=== PATIENT | female | born 1950 | race Caucasian/White ===

== ENCOUNTER → 2017-07-27 11:56 | Outpatient (CLI) | payer MEDICARE, MEDICAID, SELFPAY ==
--- NOTE | 2017-07-27 12:22 | XR_ITS ---
XR abdomen min 2V HISTORY: ITS.REASON: Constipation ORDERING PHYSICIAN: OMAR Tamez PATIENT AGE: 67 years COMPARISON: None FINDINGS: Nonobstructive bowel gas pattern. There is mild amount retained colonic feces throughout the right and transverse colon. No radiographic evidence of fecal and fraction. Surgical clips right upper quadrant. No obvious urinary calculi. Degenerative change lumbar spine. IMPRESSION: Mild fecal stasis
[2017-07-27 13:58] LABS: Basophils % 0.5 % (0.1-2.0); Eosinophils # 0.1 K/mm3 (0.0-0.4); Eosinophils % 1.7 % (0.1-12.0); Lymphocytes % 28.8 K/mm3 (10-50); Mean Corpuscular HGB Conc 33.4 g/dL (31.8-35.4); Mean Corpuscular Hemoglobin 27.7 pg (27.0-31.2); Mean Corpuscular Volume 82.9 fl (81-99); Mean Platelet Volume 7.3 fl (7.4-10.4); Monocytes # 0.4 K/mm3 (0.1-1.0); Neutrophils # 4.5 K/mm3 (1.8-7.8); Neutrophils % 64.1 % (37.0-80.0); Platelet Count 228 K/mm3 (142-424); Red Blood Count 5.07 M/mm3 (4.20-5.40)
[2017-07-27 14:24] LABS: Alanine Aminotransferase 36 U/L (12-78); Albumin Level 3.4 gm/dL (3.4-5.0); Albumin/Globulin Ratio 0.9 (1.1-1.8); Alkaline Phosphatase 104 U/L (46-116); Anion Gap 12.3 mEq/L (5-15); Aspartate Amino Transferase 37 U/L (15-37); Bilirubin,Total 0.3 mg/dL (0.2-1.0); Blood Urea Nitrogen 15 mg/dL (7-18); Calcium 9.4 mg/dL (8.5-10.1); Carbon Dioxide 30 mmol/L (21.0-32.0); Chloride 98 mmol/L (98-107); Chol/HDL Ratio 3.8 (1-3.5); Cholesterol 139 mg/dL (140-200); Creatinine,Serum 0.87 mg/dL (0.55-1.02); Estimated Glomerular Filt Rate > 60 ml/min (>60); GFR (African American) > 60 ML/MIN (>60); Globulin 3.8 gm/dl (1.3-3.2); Glucose 352 mg/dL (74-106); HDL Cholesterol 37 mg/dL (29-89); LDL Cholesterol 30 mg/dL (0-130); Potassium 4.3 mmoL/L (3.5-5.1); Sodium 136 mmol/L (136-145); T4 (Thyroxine) 9.8 ug/dl (4.7-13.3); Thyroid Stimulating Hormone 1.95 uIU/ml (0.358-3.740); Total Protein,Serum 7.2 gm/dL (6.4-8.2); Triglycerides 358 mg/dL (30-200); VLDL Cholesterol 72 mg/dL (0-40)
[2017-07-27 14:49] LABS: Hemoglobin A1C 9.6 % (0.0-7.0)
[2017-07-28 17:19] LABS: Microalbumin, Urine 15.9 ug/mL (Not Estab.); Vitamin B12 285 pg/mL (232-1245)
== END ==
PROVIDERS: PCP Physician Assistant; Visit Provider Physician Assistant
DX: E11.9 Type 2 diabetes mellitus without complications (principal); R53.83 Other fatigue; K59.00 Constipation, unspecified
CPT/HCPCS: 74019; 80053; 80061; 82043; 82607; 82652; 83036; 84436; 84443; 85025

== ENCOUNTER 2017-09-16 17:41 | Emergency (ER) | payer MEDICARE, MEDICAID, SELFPAY ==
[2017-09-16 17:42] VITALS: BP 140/70; PULSE 70; RESP 22; TEMP 37.4; O2SAT 92; BMI 43.2
[2017-09-16 17:54] VITALS: BMI 43.2
--- NOTE | 2017-09-16 17:56 | XR_ITS ---
XR chest portable COMPARISON: None HISTORY: ] Shortness of breath TECHNIQUE: Portable upright chest FINDINGS: The patient is massively obese and this is a somewhat poor inspiration. However lung torres are grossly clear of infiltrate. Cardiac size is normal and the vascularity is normal. Sternal wire sutures noted. IMPRESSION: Slightly poor inspiration, grossly negative chest
--- NOTE | 2017-09-16 18:20 | HMH.EDSOB ---
ED Disposition Clinical Impression: Bronchitis, Congestion of nasal sinus Disposition: Home, Self-Care Condition on Discharge: Good Additional Instructions: Zithromax, first dose given in ER so start your Rx tomorrow; very close follow up with primary care provider in one to two days, continue inhalers and CPAP as per usual Prescriptions: Azithromycin [Zithromax 250mg tab] 250 mg PO DIRECTED #4 tab Referrals: Hilary Bagley PA [Primary Care Provider] - - Critical Care Critical Care Time: No Attestation: On 09/16/17, the high probability of a clinically significant, sudden or life threatening deterioration of the following system(s) required my full and direct attention, intervention and personal management. The time I documented below is in addition to time spent performing reported procedures but includes the following listed in this critical care notation. Medical Decision Making Vital Signs: 09/16/17 17:42 09/16/17 18:28 09/16/17 18:29 Temperature 99.4 F Temperature Source Tympanic Pulse Rate 94 H 92 H Pulse Rate [Right Radial] 70 Respiratory Rate 22 Blood Pressure [Right Arm] 140/70 Blood Pressure Mean [Right Arm] 93 Blood Pressure Source [Right Arm] Automatic Cuff Blood Pressure Position [Right Arm] Sitting 02 Sat by Pulse Oximetry 92 L Oxygen Delivery Method Nasal Cannula Oxygen Flow Rate (LPM) 2 - Lab Data Lab results reviewed: Yes: I reviewed the patient's lab results. Lab Results 09/16/17 18:03: Influenza Type A Ag Negative, Influenza Type B Ag Negative 09/16/17 18:05: WBC 11.6 H, RBC 4.95, Hgb 13.8, Hct 39.7, MCV 80.3 L, MCH 28.0, MCHC 34.8, RDW 13.8, Plt Count 214, MPV 7.3 L, Neut % (Auto) 80.1 H, Lymph % (Auto) 13.4, [place] % (Auto) 5.3, Eos % (Auto) 0.9, Baso % (Auto) 0.2, Neut # (Auto) 9.3 H, Lymph # (Auto) 1.6, [place] # (Auto) 0.6, Eos # (Auto) 0.1, Baso # (Auto) 0.0 09/16/17 18:05: Sodium 133 L, Potassium 3.6, Chloride 96 L, Carbon Dioxide 32, Anion Gap 8.6, BUN 14, Creatinine 0.87, Estimated Creat Clear 48, Estimated GFR 65, Est GFR ( Amer) 78, Glucose 232 H, Calcium 9.3, Total Bilirubin 0.5, AST 13 L, ALT 33, Alkaline Phosphatase 101, Total Protein 7.9, Albumin 3.2 L, Globulin 4.7 H, Albumin/Globulin Ratio 0.7 L 09/16/17 18:05: Lactic Acid 2.2 H 09/16/17 18:05: B-Natriuretic Peptide 179 H Result diagrams: 09/16/17 18:05 09/16/17 18:05 Orders (Tests/Meds): ED MEDICATIONS Generic Name Dose Route Start Last Admin Trade Name Freq PRN Reason Stop Dose Admin Albuterol/Ipratropium 3 ml 09/16/17 18:15 09/16/17 18:27 Duoneb 3ml Neb IH 10/16/17 18:14 3 ml Q1H BRYCE Administration Discontinued Medications Generic Name Dose Route Start Last Admin Trade Name Freq PRN Reason Stop Dose Admin Acetaminophen 500 mg 09/16/17 19:03 Tylenol 500mg Tablet PO 09/16/17 19:04 ONCE ONE Azithromycin 500 mg 09/16/17 19:02 Zithromax 250mg Tablet PO 09/16/17 19:03 ONCE ONE Protocol ORDERS Category Date Time Status Chest XR -- portable [XR chest portable] Stat Exams 09/16/17 17:56 Taken Blood Culture Stat Micro 09/16/17 18:05 Received - Radiology Data #1 Image(s): Chest Image Reviewed: Yes I reviewed the patient's radiology image Preliminary Findings: Abnormal (atelectasis at bases, CM, no prior) Patient wishes to go home; is in no resp distress; clinically appears well; HDS, first dose of ABX prior to d/c - Sam Inquiry Pt receiving controlled substance: No Resp/SOB HPI - General Chief Complaint: Weakness Stated Complaint: chest congestion, fever, headache Time Seen by Provider: 09/16/17 18:10 Mode of Arrival: Wheelchair Source of Information: Patient Limitations: No Limitations Description of Symptoms (Recalled from ER Triage Doc. by RN): PT states she has some head congestion, cough for 2 days - History of Present Illness Pressure and congestion past 2 days with very l
[2017-09-16 18:21] LABS: Basophils % 0.2 % (0.1-2.0); Eosinophils # 0.1 K/mm3 (0.0-0.4); Eosinophils % 0.9 % (0.1-12.0); Hematocrit 39.7 % (37.0-47.0); Hemoglobin 13.8 g/dL (12.2-16.2); Lymphocytes # 1.6 K/mm3 (0.7-4.5); Lymphocytes % 13.4 K/mm3 (10-50); Mean Corpuscular HGB Conc 34.8 g/dL (31.8-35.4); Mean Corpuscular Volume 80.3 fl (81-99); Mean Platelet Volume 7.3 fl (7.4-10.4); Monocytes # 0.6 K/mm3 (0.1-1.0); Monocytes % 5.3 % (1.7-9.3); Neutrophils # 9.3 K/mm3 (1.8-7.8); Neutrophils % 80.1 % (37.0-80.0); Platelet Count 214 K/mm3 (142-424); Red Blood Count 4.95 M/mm3 (4.20-5.40); Red Cell Distribution Width 13.8 % (11.5-17.5); White Blood Count 11.6 K/mm3 (4.8-10.8)
--- NOTE | 2017-09-16 18:27 | ED_ITS ---
ED Disposition Clinical Impression: Bronchitis, Congestion of nasal sinus Disposition: Home, Self-Care Condition on Discharge: Good Additional Instructions: Zithromax, first dose given in ER so start your Rx tomorrow; very close follow up with primary care provider in one to two days, continue inhalers and CPAP as per usual Prescriptions: Azithromycin [Zithromax 250mg tab] 250 mg PO DIRECTED #4 tab Referrals: Hilary Bagley PA [Primary Care Provider] - - Critical Care Critical Care Time: No Attestation: On 09/16/17, the high probability of a clinically significant, sudden or life threatening deterioration of the following system(s) required my full and direct attention, intervention and personal management. The time I documented below is in addition to time spent performing reported procedures but includes the following listed in this critical care notation. Medical Decision Making Vital Signs: 09/16/17 17:42 09/16/17 18:28 09/16/17 18:29 Temperature 99.4 F Temperature Source Tympanic Pulse Rate 94 H 92 H Pulse Rate [Right Radial] 70 Respiratory Rate 22 Blood Pressure [Right Arm] 140/70 Blood Pressure Mean [Right Arm] 93 Blood Pressure Source [Right Arm] Automatic Cuff Blood Pressure Position [Right Arm] Sitting 02 Sat by Pulse Oximetry 92 L Oxygen Delivery Method Nasal Cannula Oxygen Flow Rate (LPM) 2 - Lab Data Lab results reviewed: Yes: I reviewed the patient's lab results. Lab Results 09/16/17 18:03: Influenza Type A Ag Negative, Influenza Type B Ag Negative 09/16/17 18:05: WBC 11.6 H, RBC 4.95, Hgb 13.8, Hct 39.7, MCV 80.3 L, MCH 28.0, MCHC 34.8, RDW 13.8, Plt Count 214, MPV 7.3 L, Neut % (Auto) 80.1 H, Lymph % ( Auto) 13.4, [place] % (Auto) 5.3, Eos % (Auto) 0.9, Baso % (Auto) 0.2, Neut # (Auto ) 9.3 H, Lymph # (Auto) 1.6, [place] # (Auto) 0.6, Eos # (Auto) 0.1, Baso # (Auto) 0.0 09/16/17 18:05: Sodium 133 L, Potassium 3.6, Chloride 96 L, Carbon Dioxide 32, Anion Gap 8.6, BUN 14, Creatinine 0.87, Estimated Creat Clear 48, Estimated GFR 65, Est GFR ( Amer) 78, Glucose 232 H, Calcium 9.3, Total Bilirubin 0.5, AST 13 L, ALT 33, Alkaline Phosphatase 101, Total Protein 7.9, Albumin 3.2 L, Globulin 4.7 H, Albumin/Globulin Ratio 0.7 L 09/16/17 18:05: Lactic Acid 2.2 H 09/16/17 18:05: B-Natriuretic Peptide 179 H Result diagrams: 09/16/17 18:05 09/16/17 18:05 Orders (Tests/Meds): ED MEDICATIONS Generic Name Dose Route Start Last Admin Trade Name Freq PRN Reason Stop Dose Admin Albuterol/Ipratropium 3 ml 09/16/17 18:15 09/16/17 18:27 Duoneb 3ml Neb IH 10/16/17 18:14 3 ml Q1H BRYCE Administration Discontinued Medications Generic Name Dose Route Start Last Admin Trade Name Freq PRN Reason Stop Dose Admin Acetaminophen 500 mg 09/16/17 19:03 Tylenol 500mg Tablet PO 09/16/17 19:04 ONCE ONE Azithromycin 500 mg 09/16/17 19:02 Zithromax 250mg Tablet PO 09/16/17 19:03 ONCE ONE Protocol ORDERS Category Date Time Status Chest XR -- portable [XR chest portable] Stat Exams 09/16/17 17:56 Taken Blood Culture Stat Micro 09/16/17 18:05 Received - Radiology Data #1 Image(s): Chest Image Reviewed: Yes I reviewed the patient's radiology image
[2017-09-16 18:28] VITALS: PULSE 94
[2017-09-16 18:29] VITALS: PULSE 92
[2017-09-16 18:34] LABS: Alanine Aminotransferase 33 U/L (12-78); Albumin Level 3.2 gm/dL (3.4-5.0); Albumin/Globulin Ratio 0.7 (1.1-1.8); Alkaline Phosphatase 101 U/L (46-116); Anion Gap 8.6 mEq/L (5-15); Aspartate Amino Transferase 13 U/L (15-37); Bilirubin,Total 0.5 mg/dL (0.2-1.0); Blood Urea Nitrogen 14 mg/dL (7-18); Calcium 9.3 mg/dL (8.5-10.1); Carbon Dioxide 32 mmol/L (21.0-32.0); Chloride 96 mmol/L (98-107); Creatinine Clearance Estimated 48 mL/min (0-300); Creatinine,Serum 0.87 mg/dL (0.55-1.02); Estimated Glomerular Filt Rate 65 ml/min (>60); GFR (African American) 78 ML/MIN (>60); Globulin 4.7 gm/dl (1.3-3.2); Glucose 232 mg/dL (74-106); Potassium 3.6 mmoL/L (3.5-5.1); Sodium 133 mmol/L (136-145); Total Protein,Serum 7.9 gm/dL (6.4-8.2)
[2017-09-16 18:39] LABS: Lactic Acid 2.2 mmol/L (0.4-2.0)
[2017-09-16 19:19] VITALS: BP 142/80; PULSE 75; RESP 16; TEMP 37; O2SAT 98
[2017-09-16 21:57] LABS: Reflex Lactic No Lactic Reflex
== END 2017-09-16 19:19 | disposition home or self-care (01) ==
PROVIDERS: Emergency Provider Emergency Medicine; PCP Physician Assistant
DX: J44.0 Chronic obstructive pulmonary disease with (acute) lower respiratory infection (principal); J20.9 Acute bronchitis, unspecified; Z87.891 Personal history of nicotine dependence; I25.10 Atherosclerotic heart disease of native coronary artery without angina pectoris; E11.65 Type 2 diabetes mellitus with hyperglycemia; Z79.84 Long term (current) use of oral hypoglycemic drugs; I10 Essential (primary) hypertension; E78.5 Hyperlipidemia, unspecified; K21.9 Gastro-esophageal reflux disease without esophagitis; M79.7 Fibromyalgia
CPT/HCPCS: 71045; 80053; 83605; 83880; 85025; 87040; 87077; 87275; 87276; 99281

== ENCOUNTER 2017-09-28 11:52 | Inpatient (IN) | payer MEDICARE, MEDICAID, SELFPAY ==
[2017-09-28] VITALS (9 sets, daily range): BP systolic 113–146; BP diastolic 62–89; PULSE 61–112; RESP 20–24; TEMP 36.6–37.1; O2SAT 91–96; BMI 41.5; BMI 41.3
--- NOTE | 2017-09-28 11:56 | XR_ITS ---
XR chest portable HISTORY: ITS.REASON: chest pain ORDERING PHYSICIAN: Ivana Uriostegui MD PATIENT AGE: 67 years COMPARISON: 09/16/2017 FINDINGS: Moderate cardiomegaly without failure. Prior median sternotomy.. Increased density is present in the left lower lobe with obliteration of left hemidiaphragm consistent with left lower lobe pneumonia. The right lung is clear.. There is fracture of the superior 2 most median sternotomy wires IMPRESSION: Left lower lobe pneumonia
--- NOTE | 2017-09-28 12:05 | HMH.EDCP ---
ED Disposition Clinical Impression: Pneumonia involving left lung, Diabetes mellitus Disposition: Admitted as Observation Condition on Discharge: Fair Referrals: Hilary Bagley PA [Primary Care Provider] - - Critical Care Critical Care Time: No Attestation: On , the high probability of a clinically significant, sudden or life threatening deterioration of the following system(s) required my full and direct attention, intervention and personal management. The time I documented below is in addition to time spent performing reported procedures but includes the following listed in this critical care notation. Medical Decision Making - Medical Records Medical records reviewed: Yes: I reviewed the patient's medical records. Vital Signs: 09/28/17 11:53 09/28/17 13:00 Temperature 98 F Temperature Source Oral Pulse Rate 90 Pulse Rate [Left Radial] 103 H Respiratory Rate 24 Blood Pressure [Left Arm] 146/89 Blood Pressure Mean [Left Arm] 108 Blood Pressure Source [Left Arm] Automatic Cuff Blood Pressure Position [Left Arm] Supine 02 Sat by Pulse Oximetry 91 L 96 Oxygen Delivery Method Room Air Nasal Cannula Oxygen Flow Rate (LPM) 2 - Lab Data Lab Results 09/28/17 12:10: WBC 17.3 H, RBC 4.89, Hgb 13.5, Hct 42.0, MCV 86.0, MCH 27.7, MCHC 32.2, RDW 14.1, Plt Count 245, MPV 7.3 L, Neut % (Auto) 83.0 H, Lymph % (Auto) 11.4, [place] % (Auto) 5.1, Eos % (Auto) 0.3, Baso % (Auto) 0.2, Neut # (Auto) 14.4 H, Lymph # (Auto) 2.0, [place] # (Auto) 0.9, Eos # (Auto) 0.1, Baso # (Auto) 0.0, Total Counted 100, Neutrophils % (Manual) 88 H, Lymphocytes % (Manual) 10, Monocytes % (Manual) 2, Platelet Estimate Normal, RBC Morphology Normal 09/28/17 12:10: Sodium 130 L, Potassium 4.2, Chloride 92 L, Carbon Dioxide 33 H, Anion Gap 9.2, BUN 18, Creatinine 1.04 H, Estimated Creat Clear 47, Estimated GFR 53 L, Est GFR ( Amer) 64, Glucose 411 H*, Calcium 9.3, Total Bilirubin 0.8, AST 13 L, ALT 26, Alkaline Phosphatase 108, Total Creatine Kinase 71, CK-MB (CK-2) 1.1, CK-MB (CK-2) Rel Index 1.5, Troponin I < 0.02, Total Protein 8.1, Albumin 3.1 L, Globulin 5.0 H, Albumin/Globulin Ratio 0.6 L Result diagrams: 09/28/17 12:10 09/28/17 12:10 Orders (Tests/Meds): ED MEDICATIONS Generic Name Dose Route Start Last Admin Trade Name Freq PRN Reason Stop Dose Admin Levofloxacin/Dextrose 500 mg in 100 mls @ 100 mls/hr 09/28/17 13:15 Levaquin 500mg/100ml Premix IV 10/12/17 13:14 Q24H BRYCE Protocol Discontinued Medications Generic Name Dose Route Start Last Admin Trade Name Freq PRN Reason Stop Dose Admin Albuterol/Ipratropium 3 ml 09/28/17 12:38 09/28/17 13:00 Duoneb 3ml Neb IH 09/28/17 12:39 3 ml ONCE ONE Administration Aspirin 324 mg 09/28/17 11:56 09/28/17 11:59 Aspirin 81mg Chewable Tablet PO 09/28/17 11:57 324 mg ONCE ONE Administration Methylprednisolone Sodium Succinate 125 mg 09/28/17 12:23 09/28/17 12:31 Solu-Medrol 125mg/2ml Vial IV 09/28/17 12:24 125 mg ONCE ONE Administration ORDERS Category Date Time Status Lactic Acid Stat Lab 09/28/17 12:56 Ordered Blood Culture Stat Micro 09/28/17 12:56 Ordered Sputum Culture & Gram Stain Stat Micro 09/28/17 12:56 Ordered ECG Request by /Arina Stat Y 09/28/17 11:56 Ordered - Radiology Data #1 Image(s): Chest Image Reviewed: Yes I reviewed the patient's radiology results Preliminary Findings: Abnormal (LLL pneumonia) - ECG Data Tracing #1 I reviewed this ECG and interpreted as documented below: Stach 103, no ectopy, incomplete RBBB, no ST changes, poor R w progression ECG initial impression date: 09/28/17 ECG initial impression time: 11:55 ECG normal with no acute: arrhythmias, ischemia, conduction abnormalities, chamber hypertrophy Normal Sinus Rhythm: Yes - Physician Consults Physician Consulted: Abhishek Sheehan Time: 13:04 Reason -: Admission Comment/Response:
--- NOTE | 2017-09-28 12:23 | ED_ITS ---
ED Disposition Clinical Impression: Pneumonia involving left lung, Diabetes mellitus Disposition: Admitted as Observation Condition on Discharge: Fair Referrals: Hilary Bagley PA [Primary Care Provider] - - Critical Care Critical Care Time: No Attestation: On , the high probability of a clinically significant, sudden or life threatening deterioration of the following system(s) required my full and direct attention, intervention and personal management. The time I documented below is in addition to time spent performing reported procedures but includes the following listed in this critical care notation. Medical Decision Making - Medical Records Medical records reviewed: Yes: I reviewed the patient's medical records. Vital Signs: 09/28/17 11:53 09/28/17 13:00 Temperature 98 F Temperature Source Oral Pulse Rate 90 Pulse Rate [Left Radial] 103 H Respiratory Rate 24 Blood Pressure [Left Arm] 146/89 Blood Pressure Mean [Left Arm] 108 Blood Pressure Source [Left Arm] Automatic Cuff Blood Pressure Position [Left Arm] Supine 02 Sat by Pulse Oximetry 91 L 96 Oxygen Delivery Method Room Air Nasal Cannula Oxygen Flow Rate (LPM) 2 - Lab Data Lab Results 09/28/17 12:10: WBC 17.3 H, RBC 4.89, Hgb 13.5, Hct 42.0, MCV 86.0, MCH 27.7, MCHC 32.2, RDW 14.1, Plt Count 245, MPV 7.3 L, Neut % (Auto) 83.0 H, Lymph % ( Auto) 11.4, [place] % (Auto) 5.1, Eos % (Auto) 0.3, Baso % (Auto) 0.2, Neut # (Auto ) 14.4 H, Lymph # (Auto) 2.0, [place] # (Auto) 0.9, Eos # (Auto) 0.1, Baso # (Auto ) 0.0, Total Counted 100, Neutrophils % (Manual) 88 H, Lymphocytes % (Manual) 10 , Monocytes % (Manual) 2, Platelet Estimate Normal, RBC Morphology Normal 09/28/17 12:10: Sodium 130 L, Potassium 4.2, Chloride 92 L, Carbon Dioxide 33 H , Anion Gap 9.2, BUN 18, Creatinine 1.04 H, Estimated Creat Clear 47, Estimated GFR 53 L, Est GFR ( Amer) 64, Glucose 411 H*, Calcium 9.3, Total Bilirubin 0.8, AST 13 L, ALT 26, Alkaline Phosphatase 108, Total Creatine Kinase 71, CK-MB (CK-2) 1.1, CK-MB (CK-2) Rel Index 1.5, Troponin I < 0.02, Total Protein 8.1, Albumin 3.1 L, Globulin 5.0 H, Albumin/Globulin Ratio 0.6 L Result diagrams: 09/28/17 12:10 09/28/17 12:10 Orders (Tests/Meds): ED MEDICATIONS Generic Name Dose Route Start Last Admin Trade Name Freq PRN Reason Stop Dose Admin Levofloxacin/Dextrose 500 mg in 100 mls @ 100 mls/hr 09/28/17 13:15 Levaquin 500mg/100ml Premix IV 10/12/17 13:14 Q24H BRYCE Protocol Discontinued Medications Generic Name Dose Route Start Last Admin Trade Name Freq PRN Reason Stop Dose Admin Albuterol/Ipratropium 3 ml 09/28/17 12:38 09/28/17 13:00 Duoneb 3ml Neb IH 09/28/17 12:39 3 ml ONCE ONE Administration Aspirin 324 mg 09/28/17 11:56 09/28/17 11:59 Aspirin 81mg Chewable Tablet PO 09/28/17 11:57 324 mg ONCE ONE Administration Methylprednisolone Sodium Succinate 125 mg 09/28/17 12:23 09/28/17 12:31 Solu-Medrol 125mg/2ml Vial IV 09/28/17 12:24 125 mg ONCE ONE Administration ORDERS Category Date Time Status Lactic Acid Stat Lab 09/28/17 12:56 Ordered Blood Culture Stat Micro 09/28/17 12:56 Ordered Sputum Culture & Gram Stain Stat Micro 09/28/17 12:56 Ordered ECG Request by /Nse Stat
[2017-09-28 12:29] LABS: Basophils % 0.2 % (0.1-2.0); Eosinophils # 0.1 K/mm3 (0.0-0.4); Eosinophils % 0.3 % (0.1-12.0); Hemoglobin 13.5 g/dL (12.2-16.2); Lymphocytes % 11.4 K/mm3 (10-50); Mean Corpuscular HGB Conc 32.2 g/dL (31.8-35.4); Mean Corpuscular Hemoglobin 27.7 pg (27.0-31.2); Mean Platelet Volume 7.3 fl (7.4-10.4); Monocytes # 0.9 K/mm3 (0.1-1.0); Monocytes % 5.1 % (1.7-9.3); Neutrophils # 14.4 K/mm3 (1.8-7.8); Platelet Count 245 K/mm3 (142-424); Red Blood Count 4.89 M/mm3 (4.20-5.40); Red Cell Distribution Width 14.1 % (11.5-17.5); White Blood Count 17.3 K/mm3 (4.8-10.8)
[2017-09-28 12:31] LABS: MANUAL DIFFERENTIAL MANUAL DIFFERENTIAL (MANUAL DIFF)
[2017-09-28 12:57] LABS: Lymphocytes % 10 % (10-50); Monocytes % 2 % (2-9); Neutrophils % 88 % (42-76); Platelet Estimate Normal; RBC Morphology Normal; Total Cells Counted 100
[2017-09-28 12:59] LABS: Alanine Aminotransferase 26 U/L (12-78); Albumin Level 3.1 gm/dL (3.4-5.0); Albumin/Globulin Ratio 0.6 (1.1-1.8); Alkaline Phosphatase 108 U/L (46-116); Anion Gap 9.2 mEq/L (5-15); Aspartate Amino Transferase 13 U/L (15-37); Bilirubin,Total 0.8 mg/dL (0.2-1.0); Blood Urea Nitrogen 18 mg/dL (7-18); CKMB Relative Index 1.5 U/L (0-4.0); Calcium 9.3 mg/dL (8.5-10.1); Carbon Dioxide 33 mmol/L (21.0-32.0); Chloride 92 mmol/L (98-107); Creatine Kinase 71 U/L (26-192); Creatine Kinase MB 1.1 mg/ml (0.0-3.6); Creatinine Clearance Estimated 47 mL/min (0-300); Creatinine,Serum 1.04 mg/dL (0.55-1.02); Estimated Glomerular Filt Rate 53 ml/min (>60); GFR (African American) 64 ML/MIN (>60); Potassium 4.2 mmoL/L (3.5-5.1); Sodium 130 mmol/L (136-145); Total Protein,Serum 8.1 gm/dL (6.4-8.2); Troponin I < 0.02 ng/ml (0.00-0.06)
[2017-09-28 13:07] LABS: Glucose 411 mg/dL (74-106)
--- NOTE | 2017-09-28 14:33 | PC.NURSE ---
CALLED REPORT TO JACQUELYN RAMSEY RN
--- NOTE | 2017-09-28 16:08 | PC.NURSE ---
AT 1600 HOURS PATIENT DECIDED SHE DID NOT WANT HER MOLLY HOSE. THEY WERE REMOVED AT THIS TIME. SUE RAMSEY, MSN, RN
[2017-09-28 16:18] LABS: Lactic Acid 2.1 mmol/L (0.4-2.0)
[2017-09-28 17:08] LABS: POC Glucose,Bedside 550 mg/dL (70-110)
[2017-09-28 17:09] LABS: Glucose,Random 571 mg/dL (70-110)
--- NOTE | 2017-09-28 17:34 | PC.NURSE ---
I NOTIFIED DR. PEMBERTON FANCY NEEDLEWORKER FOR DR. MONROY RELATED TO A FINGER STICK BLOOD SUGAR OF 55O. LAB NOTIFIED FOR A GLUCOSE VERIFICATION. ORDER ENTERED. DR. PEMBERTON CALLED BACK STATES TO GIVE THE PATIENT 20UNITS OF LISPRO NOW, CHANGE TO HIGH INTENSITY SLIDING SCALE, CONTINUE LEVIMIR 80U BID. ORDER FAXED TO PHARMACY AND VERIFIED WITH Alex SEBASTIAN RN CHARGE NURSE. PATIENT IS ASYMPTOMATIC AND STATES HER BLOOD SUGARS ARE THAT HIGH AT HOME. WILL CONTINUE TO MONITOR. SUE RAMSEY, MSN,RN
--- NOTE | 2017-09-28 17:44 | PC.NURSE ---
67 YEAR OLD WHITE FEMALE PRESENTED TO THE ER FROM THE DR'S OFFICE WITH CHEST PAIN SHE WAS EVALUATED AND ADMITTED TO THE FLOOR WITH LLL PNEUMONIA. SHE HAD FAILED OUTPATIENT TREATMENT PRIOR TO THIS ADMISSION. SHE HAS A COUGH THAT IS NONPRODUCTIVE AND SHE HAS BILATERAL WHEEZES AND DIMINISHED LUNG SOUNDS IN THE LLL. WE INITIATED THE MOLLY HOSE AND LATER THE PATIENT STATES SHE CANNOT WEAR THEM FOR THEY BOTHER HER LOWER LEGS. SHE STATES SHE WEARS A CPAP AT HOME FOR SLEEP BUT STATES SHE DOES NOT NEED IT AT THIS TIME DUE TO HAVING THE OXYGEN. SHE HAS A SALINE LOCK IN THE RAC. AT APPROXIMATELY 1630 HER BLOOD SUGAR WAS TAKEN AND THE RESULT OF [address] PEMBERTON WHOM WAS RESEARCH PSYCHOLOGIST FOR DR. MONROY. I RECEIVED NEW ORDERS AND THEY WERE FAXED TO THE PHARMACY. PATIENT HAS BEEN ASYMPTOMATIC AND STATES HER BLOOD SUGARS RUN IN THE 500'S AT HOME. WILL CONTINUE TO MONITOR. SUE RAMSEY, MSN, RN
[2017-09-28 20:01] LABS: Reflex Lactic Add Lactic Reflex
[2017-09-28 20:21] LABS: Lactic Acid Follow Up (RFLX 1) 2.2 (0.4-2.0)
--- NOTE | 2017-09-28 20:46 | PC.NURSE ---
PT fsbs registering high and not able to read. Stat glucose lab draw ordered. electrical service technician in room getting blood.
[2017-09-28 21:32] LABS: Glucose,Random 687 mg/dL (70-110)
[2017-09-28 22:24] LABS: Reflex Lactic (2 hrs) Add Lactic Reflex
[2017-09-28 22:54] LABS: Lactic Acid Follow up (RFLX 2) 2.2 (0.4-2.0)
[2017-09-29] VITALS (9 sets, daily range): BP systolic 104–130; BP diastolic 55–71; PULSE 47–69; RESP 16–20; TEMP 36.4–37.1; O2SAT 92–98; BMI 41.3
--- NOTE | 2017-09-29 04:53 | PC.NURSE ---
NO ACUTE CHANGES NOTED. PT HAS RESTED WELL THIS SHIFT.SHE REMAINS ON 2L NC. LUNGS NOTED TO HAVE SCATTERED WHEEZING AND DIMINISHED T/O. WAS NOTIFIED EARLY IN SHIFT DUE TO BLOOD GLUCOSE OF 687. 40 UNITS OF HUMALOG ADMIN ALONG WITH 80 UNITS OF LEVEMIR. MEDICATIONS ADMIN PER SEP. WILL CONTINUE TO MONITOR.
[2017-09-29 06:43] LABS: Basophils % 0.1 % (0.1-2.0); Hematocrit 40.5 % (37.0-47.0); Hemoglobin 12.9 g/dL (12.2-16.2); Lymphocytes # 1.5 K/mm3 (0.7-4.5); Lymphocytes % 9.9 K/mm3 (10-50); Mean Corpuscular HGB Conc 31.9 g/dL (31.8-35.4); Mean Corpuscular Hemoglobin 27.5 pg (27.0-31.2); Mean Corpuscular Volume 86.1 fl (81-99); Mean Platelet Volume 7.5 fl (7.4-10.4); Monocytes # 0.5 K/mm3 (0.1-1.0); Monocytes % 3.6 % (1.7-9.3); Neutrophils # 12.9 K/mm3 (1.8-7.8); Neutrophils % 86.3 % (37.0-80.0); Platelet Count 249 K/mm3 (142-424); Red Blood Count 4.71 M/mm3 (4.20-5.40); Red Cell Distribution Width 13.9 % (11.5-17.5); White Blood Count 14.9 K/mm3 (4.8-10.8)
[2017-09-29 06:59] LABS: POC Glucose,Bedside 502 mg/dL (70-110)
--- NOTE | 2017-09-29 06:59 | PC.NURSE ---
PT FSBS WAS 502 THIS AM. AWAITING STAT BLOOD GLUCOSE. MD NOTIFIED. 20 UNITS OF HUMALOG ORDERED IN ADDITION TO 20 UNITS SCHEDULED. TOTAL OF 40 UNITS ADMINISTERED THIS AM.
[2017-09-29 07:02] LABS: Anion Gap 9.9 mEq/L (5-15); Blood Urea Nitrogen 33 mg/dL (7-18); Carbon Dioxide 31 mmol/L (21.0-32.0); Chloride 90 mmol/L (98-107); Creatinine Clearance Estimated 32 mL/min (0-300); Creatinine,Serum 1.51 mg/dL (0.55-1.02); Estimated Glomerular Filt Rate 34 ml/min (>60); GFR (African American) 41 ML/MIN (>60); MANUAL DIFFERENTIAL MANUAL DIFFERENTIAL (MANUAL DIFF); Potassium 3.9 mmoL/L (3.5-5.1); Sodium 127 mmol/L (136-145)
[2017-09-29 07:04] LABS: Glucose 512 mg/dL (74-106)
[2017-09-29 07:33] LABS: POC Glucose,Bedside > 600 mg/dL (70-110)
[2017-09-29 07:33] LABS: POC Glucose,Bedside > 600 mg/dL (70-110)
[2017-09-29 07:40] LABS: Acetone, Serum (Rapid) None Detected (None Detect)
--- NOTE | 2017-09-29 10:00 | HMH.HP ---
*Admission Date: 09/28/17 *Chief complaint: sob *History of present illness: 67 yr old female patient seen in office yesterday with c/o of sob, chest pain. Pt was on zithromax as a oupt, while examining pt o2 sat 85% and pt reports pain midsternal and radiating to back. Pt was sent to ed for eval. Pt admitted for pneumonia and cardiac work up. [facility] History I have reviewed the patient's past medical history: Yes Medical History: Reports:: Asthma, Chronic Obstructive Pulmonary Disease (COPD), Coronary Artery Disease, Diabetes Mellitus Type 2, Gastroesophageal Reflux Disease(GERD), Hyperlipidemia, Hypertension, Myocardial Infarction Denies:: Cancer, Diabetes Mellitus Type 1, MRSA Other Medical History: Reports: Fibromyalgia Laterality Cases: Right: Lumpectomy Other Surgeries: Yes: Appendectomy, Hysterectomy-Total, Tubal Ligation Amputation: No Fractures: No - *Social History Educational Level: Completed Grade School Smoking Status: Never smoker Alcohol Intake: never Substance Use Type: denies use Occupational Status: retired, disabled Housing: house Household Members: family - Psychiatric History Expresses thoughts of harming self/others: None Suicide Plan Description: No Plan *Family Hx:: Cancer Review of Systems - Review of Systems Review of systems:: pertinent systems reviewed and negative unless documented below - Constitutional Denies body ache(s), Denies headache(s) - Eyes Denies change in vision - ENT Denies bleeding gums - *Cardiovascular Reports chest pain at rest, Reports chest pain with activity, Reports shortness of breath - *Respiratory Reports chest congestion, Reports shortness of breath, Reports shortness of breath with activity, Reports excessive phlegm production, Reports pain on inspiration - *Gastrointestinal Denies difficulty swallowing - *Genitourinary Denies abnormal vaginal bleeding - *Musculoskeletal Denies decreased muscle mass - Integumentary/Breasts Denies change in hair - *Neurologic Reports radiating pain - Psychiatric Denies mood swings - Endocrine Denies increased hunger - Hematologic/Lymphatic Denies enlarged lymph nodes - Allergic/Immunologic Denies wheezing Meds Home Medications Medication Instructions Recorded Confirmed Type amitriptyline 10 mg tablet 10 mg PO QHS 07/21/17 09/28/17 History hydrocodone 5 mg-acetaminophen 325 1 tab PO BID tab 07/21/17 09/28/17 History mg tablet Bisoprolol Fumarate [Zebeta 5mg 5 mg PO QDAY 09/28/17 09/28/17 History tablet] Budesonide/Formoterol Fumarate 2 puff INHALATION Q12H 09/28/17 09/28/17 History [Symbicort 160-4.5 Mcg Inhaler] Buspirone HCl [Buspar 5mg tablet] 5 mg PO ONCE 09/28/17 09/28/17 History Citalopram Hydrobromide [Celexa] 20 mg PO QDAY 09/28/17 09/28/17 History Clopidogrel Bisulfate [Plavix 75mg 75 mg PO ONCE 09/28/17 09/28/17 History Tab] Ergocalciferol (Vitamin D2) 50,000 unit PO QWEEK 09/28/17 09/28/17 History [Vitamin D2] Furosemide [Furosemide 20mg Tab] 20 mg PO QDAY 09/28/17 09/28/17 History Gabapentin [Gabapentin 800mg Tab] 800 mg PO QID 09/28/17 09/28/17 History Insulin Detemir [Levemir 80 unit SUB-Q BID 09/28/17 09/28/17 History 100units/mL 3mL flexpen] Levothyroxine Sodium [Synthroid 25 mcg PO QDAY 09/28/17 09/28/17 History 25mcg (0.025mg) tablet] Losartan/Hydrochlorothiazide 1 tab PO QDAY 09/28/17 09/28/17 History [Hyzaar 100-12.5 Tablet] Metoclopramide HCl [Reglan 5mg 5 mg PO BID 09/28/17 09/28/17 History Tablet] Omeprazole [Omeprazole 20mg 20 mg PO QDAY 09/28/17 09/28/17 History Capsule] Potassium Chloride [K-Tab ER 10 10 meq PO QDAY 09/28/17 09/28/17 History mEq] Rosuvastatin Calcium 20 mg PO QDAY 09/28/17 09/28/17 History cloNIDine HCl [Catapres] 0.2 mg PO QDAY 09/28/17 09/28/17 History insulin aspar prt-insulin aspart 40 unit SUB-Q TID 09/28/17 09/28/17 History 100 unit/mL (70-30) subcutaneous soln raNITIdine HCl [Ranitidine H
--- NOTE | 2017-09-29 10:03 | P.HP_ITS ---
*Admission Date: 09/28/17 *Chief complaint: sob *History of present illness: 67 yr old female patient seen in office yesterday with c/o of sob, chest pain. Pt was on zithromax as a oupt, while examining pt o2 sat 85% and pt reports pain midsternal and radiating to back. Pt was sent to ed for eval. Pt admitted for pneumonia and cardiac work up. [facility] History I have reviewed the patient's past medical history: Yes Medical History: Reports:: Asthma, Chronic Obstructive Pulmonary Disease (COPD) , Coronary Artery Disease, Diabetes Mellitus Type 2, Gastroesophageal Reflux Disease(GERD), Hyperlipidemia, Hypertension, Myocardial Infarction Denies:: Cancer, Diabetes Mellitus Type 1, MRSA Other Medical History: Reports: Fibromyalgia Laterality Cases: Right: Lumpectomy Other Surgeries: Yes: Appendectomy, Hysterectomy-Total, Tubal Ligation Amputation: No Fractures: No - *Social History Educational Level: Completed Grade School Smoking Status: Never smoker Alcohol Intake: never Substance Use Type: denies use Occupational Status: retired, disabled Housing: house Household Members: family - Psychiatric History Expresses thoughts of harming self/others: None Suicide Plan Description: No Plan *Family Hx:: Cancer Review of Systems - Review of Systems Review of systems:: pertinent systems reviewed and negative unless documented below - Constitutional Denies body ache(s), Denies headache(s) - Eyes Denies change in vision - ENT Denies bleeding gums - *Cardiovascular Reports chest pain at rest, Reports chest pain with activity, Reports shortness of breath - *Respiratory Reports chest congestion, Reports shortness of breath, Reports shortness of breath with activity, Reports excessive phlegm production, Reports pain on inspiration - *Gastrointestinal Denies difficulty swallowing - *Genitourinary Denies abnormal vaginal bleeding - *Musculoskeletal Denies decreased muscle mass - Integumentary/Breasts Denies change in hair - *Neurologic Reports radiating pain - Psychiatric Denies mood swings - Endocrine Denies increased hunger - Hematologic/Lymphatic Denies enlarged lymph nodes - Allergic/Immunologic Denies wheezing Meds Home Medications Medication Instructions Recorded Confirmed Type amitriptyline 10 mg tablet 10 mg PO QHS 07/21/17 09/28/17 History hydrocodone 5 mg-acetaminophen 325 1 tab PO BID tab 07/21/17 09/28/17 History mg tablet Bisoprolol Fumarate [Zebeta 5mg 5 mg PO QDAY 09/28/17 09/28/17 History tablet] Budesonide/Formoterol Fumarate 2 puff INHALATION Q12H 09/28/17 09/28/17 History [Symbicort 160-4.5 Mcg Inhaler] Buspirone HCl [Buspar 5mg tablet] 5 mg PO ONCE 09/28/17 09/28/17 History Citalopram Hydrobromide [Celexa] 20 mg PO QDAY 09/28/17 09/28/17 History Clopidogrel Bisulfate [Plavix 75mg 75 mg PO ONCE 09/28/17 09/28/17 History Tab] Ergocalciferol (Vitamin D2) 50,000 unit PO QWEEK 09/28/17 09/28/17 History [Vitamin D2] Furosemide [Furosemide 20mg Tab] 20 mg PO QDAY 09/28/17 09/28/17 History Gabapentin [Gabapentin 800mg Tab] 800 mg PO QID 09/28/17 09/28/17 History Insulin Detemir [Levemir 80 unit SUB-Q BID 09/28/17 09/28/17 History 100units/mL 3mL flexpen] Levothyroxine Sodium [Synthroid 25 mcg PO QDAY 09/28/17 09/28/17 History 25mcg (0.025mg) tablet] Losartan/Hydrochlorothiazide 1 tab PO QDAY 09/28/17 0
[2017-09-29 10:24] LABS: Adenovirus,PCR Not Detected (NotDetected); Bordetella Pertussis Not Detected (NotDetected); Chlamydophila Pneumoniae, PCR Not Detected (NotDetected); Coronavirus 229E Not Detected (NotDetected); Coronavirus NL63 Not Detected (NotDetected); Coronavirus OC43 Not Detected (NotDetected); Coronovirus HKU1,PCR Not Detected (NotDetected); Human Metapneumovirus Not Detected (NotDetected); Influenza A, PCR Not Detected (NotDetected); Influenza AH1, 2009 Not Detected (NotDetected); Influenza AH1, PCR Not Detected (NotDetected); Influenza AH3,PCR Not Detected (NotDetected); Influenza B, PCR Not Detected (NotDetected); Mycoplasma Pneumoniae, PCR Not Detected (NotDected); Parainfluenza 1, PCR Not Detected (NotDetected); Parainfluenza 2, PCR Not Detected (NotDetected); Parainfluenza 3, PCR Not Detected (NotDetected); Parainfluenza 4, PCR Not Detected (NotDetected); Respiratory Syncytial Virus Not Detected (NotDetected); Rhinovirus/Enterovirus Not Detected (NotDetected)
[2017-09-29 11:15] LABS: Lymphocytes % 10 % (10-50); Monocytes % 4 % (2-9); Neutrophils % 86 % (42-76); Platelet Estimate Normal; RBC Morphology Normal; Total Cells Counted 100
--- NOTE | 2017-09-29 11:18 | SW/DCPLANNER ---
Received order for home O2.....patient information was faxed to [facility] and I have spoke with Melissa Michaels at [facility] to confirm fax was received and they will deliver home O2 to patient this afternoon. Patient is expected to discharged home over the weekend. However if patient discharges home on Monday rather than Monday patient will need qualifying O2 sat recorded in computer.
[2017-09-29 11:39] LABS: POC Glucose,Bedside 506 mg/dL (70-110)
--- NOTE | 2017-09-29 11:48 | HMH.PHAVTE ---
[facility] Pharmacy VTE Monitoring - Patient Demographics Admission date: 09/28/17 Report Date: 09/29/17 Time: 11:48 Allergies/Adverse Reactions: Patient Allergies Iodinated Contrast Media - Oral and [Iodinated Contrast Media - IV Dye] Allergy (Severe, Verified 09/28/17 12:01) S-DIFF. BREATHING celecoxib [From CELEBREX] Allergy (Unknown, Verified 09/28/17 12:01) SWELLING ibuprofen [IBUPROFEN] Allergy (Unknown, Verified 09/28/17 12:01) S-BLISTERING WELTS meloxicam [MELOXICAM] Allergy (Unknown, Verified 09/28/17 12:01) S-BLISTERING WELTS Penicillins [PENICILLINS] Allergy (Unknown, Verified 09/28/17 12:01) I-HIVES rofecoxib [From VIOXX] Allergy (Unknown, Verified 09/28/17 12:01) I-HIVES Height: 1.65 m Weight: 112.548 kg Patient Problems: Current Active Problems Pneumonia involving left lung (Acute) Diabetes mellitus (Chronic) - VTE Risk Labs: VTE Related Lab Results Hgb 12.9 g/dL (12.2-16.2) 09/29/17 06:15 Hct 40.5 % (37.0-47.0) 09/29/17 06:15 Plt Count 249 K/mm3 (142-424) 09/29/17 06:15 BUN 33 mg/dL (7-18) H D 09/29/17 06:15 Creatinine 1.51 mg/dL (0.55-1.02) H D 09/29/17 06:15 Estimated Creat Clear 32 mL/min (0-300) 09/29/17 06:15 Was VTE Risk Assessment Performed: Yes VTE Score: 6 VTE Risk Level: Moderate Risk - Prophylaxis VTE Prophylaxis Ordered?: Yes Types of VTE Prophylaxis: TEDS Knee High Location of Applied Device: Bilateral Lower Extremeties
[2017-09-29 13:53] LABS: Glucose,Random 565 mg/dL (70-110)
[2017-09-29 17:57] LABS: Glucose,Random 571 mg/dL (70-110)
[2017-09-29 21:22] LABS: POC Glucose,Bedside 552 mg/dL (70-110)
[2017-09-29 21:23] LABS: Glucose,Random 548 mg/dL (70-110)
[2017-09-30] VITALS (10 sets, daily range): BP systolic 92–139; BP diastolic 48–75; PULSE 58–93; RESP 20–24; TEMP 36.3–37; O2SAT 88–98
--- NOTE | 2017-09-30 04:32 | PC.NURSE ---
PT HAS SLEPT. CONTINUES ON 2L PER NC. NO COMPLAINTS. FSBS REMAINS ELEVATED.
[2017-09-30 06:29] LABS: POC Glucose,Bedside 425 mg/dL (70-110)
[2017-09-30 06:36] LABS: Hematocrit 41.6 % (37.0-47.0); Hemoglobin 13.6 g/dL (12.2-16.2); Lymphocytes # 1.2 K/mm3 (0.7-4.5); Lymphocytes % 8.8 K/mm3 (10-50); Mean Corpuscular HGB Conc 32.7 g/dL (31.8-35.4); Mean Corpuscular Hemoglobin 27.6 pg (27.0-31.2); Mean Corpuscular Volume 84.5 fl (81-99); Mean Platelet Volume 7.7 fl (7.4-10.4); Monocytes # 0.4 K/mm3 (0.1-1.0); Neutrophils # 12.1 K/mm3 (1.8-7.8); Neutrophils % 88.2 % (37.0-80.0); Platelet Count 308 K/mm3 (142-424); Red Blood Count 4.92 M/mm3 (4.20-5.40); Red Cell Distribution Width 13.9 % (11.5-17.5); White Blood Count 13.8 K/mm3 (4.8-10.8)
[2017-09-30 06:41] LABS: MANUAL DIFFERENTIAL MANUAL DIFFERENTIAL (MANUAL DIFF)
[2017-09-30 06:57] LABS: Alanine Aminotransferase 24 U/L (12-78); Albumin Level 2.9 gm/dL (3.4-5.0); Albumin/Globulin Ratio 0.6 (1.1-1.8); Alkaline Phosphatase 94 U/L (46-116); Anion Gap 10.6 mEq/L (5-15); Aspartate Amino Transferase 12 U/L (15-37); Bilirubin,Total 0.1 mg/dL (0.2-1.0); Blood Urea Nitrogen 47 mg/dL (7-18); Calcium 9.8 mg/dL (8.5-10.1); Carbon Dioxide 31 mmol/L (21.0-32.0); Chloride 93 mmol/L (98-107); Creatinine Clearance Estimated 33 mL/min (0-300); Creatinine,Serum 1.43 mg/dL (0.55-1.02); Estimated Glomerular Filt Rate 36 ml/min (>60); GFR (African American) 44 ML/MIN (>60); Globulin 5.2 gm/dl (1.3-3.2); Potassium 4.6 mmoL/L (3.5-5.1); Sodium 130 mmol/L (136-145); Total Protein,Serum 8.1 gm/dL (6.4-8.2)
[2017-09-30 07:00] LABS: Glucose 427 mg/dL (74-106)
--- NOTE | 2017-09-30 07:01 | PC.NURSE ---
NOTIFIED DR MONROY OF ELEVATED FSBS WITH CRITICAL BLOOD GLUCOSE LEVEL. NO NEW ORDERS GIVEN.
--- NOTE | 2017-09-30 07:51 | HMH.ACPN2 ---
Internal Medicine - PN: Subj *Date: 09/30/17 *Time: 07:51 Interval history: reports feeling better but had elevated glu Exam Vital signs and Labs for Last 24 Hours: Temp Pulse Resp BP Pulse Ox 98.2 F 93 H 20 139/75 98 09/30/17 07:31 09/30/17 07:31 09/30/17 07:31 09/30/17 07:31 09/30/17 07:31 Laboratory Results - last 24 hr 09/29/17 06:15: Total Counted 100, Neutrophils % (Manual) 86 H, Lymphocytes % (Manual) 10, Monocytes % (Manual) 4, Platelet Estimate Normal, RBC Morphology Normal 09/29/17 10:07: Chlamy pneumoniae PCR Not detected, Adenovirus (PCR) Not detected, B.parapertussis DNA PCR Not detected, Coronavirus OC43 (PCR) Not detected, Coronavirus HKU1 (PCR) Not detected, Coronavirus 229E (PCR) Not detected, Coronavirus NL63 (PCR) Not detected, Human Metapneumovir PCR Not detected, Influenza A (H1) PCR Not detected, Influ A (H1N1/09) PCR Not detected, Influenza A (H3) PCR Not detected, Influenza Type A (PCR) Not detected, Influenza Type B (PCR) Not detected, M. pneumoniae (PCR) Not detected, Parainfluenza 1 (PCR) Not detected, Parainfluenza 2 (PCR) Not detected, Parainfluenza 3 (PCR) Not detected, Parainfluenza 4 (PCR) Not detected, RSV (PCR) Not detected, Entero/Rhino (PCR) Not detected 09/29/17 11:25: POC Glucose 506 09/29/17 13:32: Random Glucose 565 H* 09/29/17 17:20: Random Glucose 571 H* 09/29/17 20:44: POC Glucose 552 09/29/17 20:55: Random Glucose 548 H* 09/30/17 06:04: POC Glucose 425 09/30/17 06:10: WBC 13.8 H, RBC 4.92, Hgb 13.6, Hct 41.6, MCV 84.5, MCH 27.6, MCHC 32.7, RDW 13.9, Plt Count 308, MPV 7.7, Neut % (Auto) 88.2 H, Lymph % (Auto) 8.8 L, [place] % (Auto) 3.0, Eos % (Auto) 0.0 L, Baso % (Auto) 0.0 L, Neut # (Auto) 12.1 H, Lymph # (Auto) 1.2, [place] # (Auto) 0.4, Eos # (Auto) 0.0, Baso # (Auto) 0.0 09/30/17 06:10: Sodium 130 L, Potassium 4.6, Chloride 93 L, Carbon Dioxide 31, Anion Gap 10.6, BUN 47 H D, Creatinine 1.43 H, Estimated Creat Clear 33, Estimated GFR 36 L, Est GFR ( Amer) 44 L, Glucose 427 H*, Calcium 9.8, Total Bilirubin 0.1 L, AST 12 L, ALT 24, Alkaline Phosphatase 94, Total Protein 8.1, Albumin 2.9 L, Globulin 5.2 H, Albumin/Globulin Ratio 0.6 L I & O for Last 24 hours: Intake & Output 09/27/17 09/28/17 09/29/17 09/30/17 11:59 11:59 11:59 11:59 Intake Total 720 / 720 1540 / 1540 Balance 720 / 720 1540 / 1540 Weight 248 lb 2 oz 248 lb 2.014 oz Microbiology Reports for the Last 24 Hours: Microbiology 09/28/17 14:40 Sputum - Expectorated Sputum Gram Stain - Final 09/28/17 14:40 Sputum - Expectorated Sputum Sputum Culture - Preliminary - Constitutional no acute distress, obese - *Routine HEENT Exam Head: Present: normocephalic Eye: Present: EOMI, PERRL. Absent: conjunctival icterus ENT: Present: mucous membranes dry - *Routine Neck Exam Absent: JVD - *Routine Respiratory Exam Present: distant breath sounds - *Routine Cardiovascular Exam Present: RRR, murmur - *Routine Abdominal Exam Present: soft - *Routine Extremities Exam Present: edema. Absent: calf tenderness - *Routine Skin Exam Present: intact - *Routine Neurological Exam Present: alert, oriented X3, CN II-XII intact - Routine Psychiatric Exam Present: normal affect Assessment and Plan (1) Obesity Current visit: Yes Status: Acute Qualifiers: Obesity type: unspecified obesity type Category: Medical Code(s): E66.9 - Obesity, unspecified (2) Renal insufficiency Current visit: Yes Status: Acute Category: Medical Code(s): N28.9 - Disorder of kidney and ureter, unspecified
--- NOTE | 2017-09-30 07:55 | P.PN_ITS ---
Internal Medicine - PN: Subj *Date: 09/30/17 *Time: 07:51 Interval history: reports feeling better but had elevated glu Exam Vital signs and Labs for Last 24 Hours: Temp Pulse Resp BP Pulse Ox 98.2 F 93 H 20 139/75 98 09/30/17 07:31 09/30/17 07:31 09/30/17 07:31 09/30/17 07:31 09/30/17 07:31 Laboratory Results - last 24 hr 09/29/17 06:15: Total Counted 100, Neutrophils % (Manual) 86 H, Lymphocytes % ( Manual) 10, Monocytes % (Manual) 4, Platelet Estimate Normal, RBC Morphology Normal 09/29/17 10:07: Chlamy pneumoniae PCR Not detected, Adenovirus (PCR) Not detected, B.parapertussis DNA PCR Not detected, Coronavirus OC43 (PCR) Not detected, Coronavirus HKU1 (PCR) Not detected, Coronavirus 229E (PCR) Not detected, Coronavirus NL63 (PCR) Not detected, Human Metapneumovir PCR Not detected, Influenza A (H1) PCR Not detected, Influ A (H1N1/09) PCR Not detected , Influenza A (H3) PCR Not detected, Influenza Type A (PCR) Not detected, Influenza Type B (PCR) Not detected, M. pneumoniae (PCR) Not detected, Parainfluenza 1 (PCR) Not detected, Parainfluenza 2 (PCR) Not detected, Parainfluenza 3 (PCR) Not detected, Parainfluenza 4 (PCR) Not detected, RSV (PCR ) Not detected, Entero/Rhino (PCR) Not detected 09/29/17 11:25: POC Glucose 506 09/29/17 13:32: Random Glucose 565 H* 09/29/17 17:20: Random Glucose 571 H* 09/29/17 20:44: POC Glucose 552 09/29/17 20:55: Random Glucose 548 H* 09/30/17 06:04: POC Glucose 425 09/30/17 06:10: WBC 13.8 H, RBC 4.92, Hgb 13.6, Hct 41.6, MCV 84.5, MCH 27.6, MCHC 32.7, RDW 13.9, Plt Count 308, MPV 7.7, Neut % (Auto) 88.2 H, Lymph % (Auto ) 8.8 L, [place] % (Auto) 3.0, Eos % (Auto) 0.0 L, Baso % (Auto) 0.0 L, Neut # ( Auto) 12.1 H, Lymph # (Auto) 1.2, [place] # (Auto) 0.4, Eos # (Auto) 0.0, Baso # ( Auto) 0.0 09/30/17 06:10: Sodium 130 L, Potassium 4.6, Chloride 93 L, Carbon Dioxide 31, Anion Gap 10.6, BUN 47 H D, Creatinine 1.43 H, Estimated Creat Clear 33, Estimated GFR 36 L, Est GFR ( Amer) 44 L, Glucose 427 H*, Calcium 9.8, Total Bilirubin 0.1 L, AST 12 L, ALT 24, Alkaline Phosphatase 94, Total Protein 8.1, Albumin 2.9 L, Globulin 5.2 H, Albumin/Globulin Ratio 0.6 L I & O for Last 24 hours: Intake & Output 09/27/17 09/28/17 09/29/17 09/30/17 11:59 11:59 11:59 11:59 Intake Total 720 / 720 1540 / 1540 Balance 720 / 720 1540 / 1540 Weight 248 lb 2 oz 248 lb 2.014 oz Microbiology Reports for the Last 24 Hours: Microbiology 09/28/17 14:40 Sputum - Expectorated Sputum Gram Stain - Final 09/28/17 14:40 Sputum - Expectorated Sputum Sputum Culture - Preliminary - Constitutional no acute distress, obese - *Routine HEENT Exam Head: Present: normocephalic Eye: Present: EOMI, PERRL. Absent: conjunctival icterus ENT: Present: mucous membranes dry - *Routine Neck Exam Absent: JVD - *Routine Respiratory Exam Present: distant breath sounds - *Routine Cardiovascular Exam Present: RRR, murmur - *Routine Abdominal Exam Present: soft - *Routine Extremities Exam Present: edema. Absent: calf tenderness - *Routine Skin Exam Present: intact - *Routine Neurological Exam Present: alert, oriented X3, CN II-XII intact - Routine Psychiatric Exam Present: normal affect Assessment and Plan (1) Obesity Current visit: Yes Status: Acute Qualifiers: Obesity type: unspecified obesity type Category: Medical Code(s): E66.9 - Obesity, unspecified (2) Renal insufficiency
[2017-09-30 08:00] LABS: Lymphocytes % 10 % (10-50); Monocytes % 1 % (2-9); Neutrophils % 89 % (42-76); Platelet Estimate Normal; RBC Morphology Normal; Total Cells Counted 100
--- NOTE | 2017-09-30 11:56 | PC.NURSE ---
Paged Dr. Sheehan for glucose reading of 568, awaiting call back
[2017-09-30 12:16] LABS: POC Glucose,Bedside 568 mg/dL (70-110)
[2017-09-30 12:25] LABS: Glucose,Random 585 mg/dL (70-110)
--- NOTE | 2017-09-30 12:28 | PC.NURSE ---
Spoke with MD Sheehan, Critical glucose of 585 per lab draw. stated to give the added insulin for 12:30 dose of humalog 75/25 and given sliding scale of 20 units. Will continue to monitor
[2017-09-30 13:59] LABS: POC Glucose,Bedside 532 mg/dL (70-110)
--- NOTE | 2017-09-30 15:08 | PC.NURSE ---
Pt resting in bed at this time with no complaints. Ambulated t/o with no assistance and tolerated well. Glucose remains in the 500s although new insulin has been added this shift for better control. Call light in reach, will continue to monitor
--- NOTE | 2017-09-30 16:51 | PC.NURSE ---
MD Sheehan notified of glucose reading of 508, stated to give the 20 units of humalog and the 40 units of the 75/25 as ordered
[2017-09-30 16:57] LABS: Glucose,Random 492 mg/dL (70-110)
[2017-09-30 17:15] LABS: POC Glucose,Bedside 508 mg/dL (70-110)
[2017-09-30 21:15] LABS: POC Glucose,Bedside 396 mg/dL (70-110)
[2017-10-01] VITALS (13 sets, daily range): BP systolic 92–140; BP diastolic 48–89; PULSE 56–88; RESP 20–22; TEMP 36.3–37.3; O2SAT 89–99
--- NOTE | 2017-10-01 04:30 | PC.NURSE ---
PT HAS SLEPT. FSBS AT 2100 BELOW 400. NO COMPLAINTS. CONTINUES ON 2L PER NC.
[2017-10-01 06:33] LABS: POC Glucose,Bedside 187 mg/dL (70-110)
[2017-10-01 07:05] LABS: Basophils % 0.1 % (0.1-2.0); Eosinophils % 0.3 % (0.1-12.0); Hematocrit 42.7 % (37.0-47.0); Hemoglobin 13.9 g/dL (12.2-16.2); Lymphocytes # 3.1 K/mm3 (0.7-4.5); Lymphocytes % 21.9 K/mm3 (10-50); Mean Corpuscular HGB Conc 32.6 g/dL (31.8-35.4); Mean Corpuscular Hemoglobin 27.3 pg (27.0-31.2); Mean Corpuscular Volume 83.6 fl (81-99); Mean Platelet Volume 7.4 fl (7.4-10.4); Monocytes # 0.8 K/mm3 (0.1-1.0); Monocytes % 5.7 % (1.7-9.3); Neutrophils # 10.1 K/mm3 (1.8-7.8); Platelet Count 352 K/mm3 (142-424); Red Cell Distribution Width 13.9 % (11.5-17.5)
[2017-10-01 07:21] LABS: Alanine Aminotransferase 27 U/L (12-78); Albumin Level 2.9 gm/dL (3.4-5.0); Albumin/Globulin Ratio 0.6 (1.1-1.8); Alkaline Phosphatase 90 U/L (46-116); Anion Gap 9.8 mEq/L (5-15); Aspartate Amino Transferase 19 U/L (15-37); Bilirubin,Total 0.1 mg/dL (0.2-1.0); Blood Urea Nitrogen 50 mg/dL (7-18); Calcium 9.8 mg/dL (8.5-10.1); Carbon Dioxide 32 mmol/L (21.0-32.0); Chloride 96 mmol/L (98-107); Creatinine Clearance Estimated 40 mL/min (0-300); Creatinine,Serum 1.15 mg/dL (0.55-1.02); Estimated Glomerular Filt Rate 47 ml/min (>60); GFR (African American) 57 ML/MIN (>60); Globulin 4.9 gm/dl (1.3-3.2); Potassium 3.8 mmoL/L (3.5-5.1); Sodium 134 mmol/L (136-145); Total Protein,Serum 7.8 gm/dL (6.4-8.2)
[2017-10-01 07:22] LABS: Glucose 193 mg/dL (74-106)
--- NOTE | 2017-10-01 08:06 | P.PN_ITS ---
Internal Medicine - PN: Subj *Date: 10/01/17 *Time: 08:04 Interval history: doing better today Exam Vital signs and Labs for Last 24 Hours: Temp Pulse Resp BP Pulse Ox 98.0 F 75 20 124/89 99 10/01/17 07:37 10/01/17 07:37 10/01/17 07:37 10/01/17 07:37 10/01/17 07:37 Laboratory Results - last 24 hr 09/30/17 06:10: Total Counted 100, Neutrophils % (Manual) 89 H, Lymphocytes % ( Manual) 10, Monocytes % (Manual) 1 L, Platelet Estimate Normal, RBC Morphology Normal 09/30/17 11:51: POC Glucose 568 09/30/17 12:03: Random Glucose 585 H* 09/30/17 13:43: POC Glucose 532 09/30/17 16:25: POC Glucose 508 09/30/17 16:35: Random Glucose 492 H 09/30/17 20:39: POC Glucose 396 10/01/17 06:00: WBC 14.0 H, RBC 5.10, Hgb 13.9, Hct 42.7, MCV 83.6, MCH 27.3, MCHC 32.6, RDW 13.9, Plt Count 352, MPV 7.4, Neut % (Auto) 72.0, Lymph % (Auto) 21.9, [place] % (Auto) 5.7, Eos % (Auto) 0.3, Baso % (Auto) 0.1, Neut # (Auto) 10.1 H, Lymph # (Auto) 3.1, [place] # (Auto) 0.8, Eos # (Auto) 0.0, Baso # (Auto) 0.0 10/01/17 06:00: Sodium 134 L, Potassium 3.8, Chloride 96 L, Carbon Dioxide 32, Anion Gap 9.8, BUN 50 H, Creatinine 1.15 H, Estimated Creat Clear 40, Estimated GFR 47 L, Est GFR ( Amer) 57 L D, Glucose 193 H D, Calcium 9.8, Total Bilirubin 0.1 L, AST 19 D, ALT 27, Alkaline Phosphatase 90, Total Protein 7.8, Albumin 2.9 L, Globulin 4.9 H, Albumin/Globulin Ratio 0.6 L 10/01/17 06:14: POC Glucose 187 I & O for Last 24 hours: Intake & Output 09/28/17 09/29/17 09/30/17 10/01/17 11:59 11:59 11:59 12:59 Intake Total 720 / 720 1640 / 1640 2693 / 2693 Balance 720 / 720 1640 / 1640 2693 / 2693 Weight 248 lb 2 oz 248 lb 2.014 oz Microbiology Reports for the Last 24 Hours: Microbiology 09/28/17 14:40 Sputum - Expectorated Sputum Gram Stain - Final 09/28/17 14:40 Sputum - Expectorated Sputum Sputum Culture - Final Normal Respiratory [place] - Constitutional no acute distress, obese - *Routine HEENT Exam Head: Present: normocephalic Eye: Present: EOMI, PERRL ENT: Present: mucous membranes dry - *Routine Neck Exam Absent: JVD - *Routine Respiratory Exam Present: decreased breath sounds - *Routine Cardiovascular Exam Present: RRR, murmur, S4 - *Routine Abdominal Exam Present: soft - *Routine Extremities Exam Absent: calf tenderness - *Routine Skin Exam Present: intact - *Routine Neurological Exam Present: alert, oriented X3, CN II-XII intact - Routine Psychiatric Exam Present: normal affect Assessment and Plan (1) Obesity Current visit: Yes Status: Acute Qualifiers: Obesity type: unspecified obesity type Category: Medical Code(s): E66.9 - Obesity, unspecified (2) Renal insufficiency Current visit: Yes Status: Acute Category: Medical Code(s): N28.9 - Disorder of kidney and ureter, unspecified
[2017-10-01 11:48] LABS: POC Glucose,Bedside 319 mg/dL (70-110)
--- NOTE | 2017-10-01 14:10 | PC.NURSE ---
PT IS SITTING UP ON THE SOB WITH FAMILY IN THE ROOM AT THIS TIME, PT RECEIVED HER SCHEDULED PAIN MED THIS MORNING FOR SHOULDER AND BACK DISCOMFORT. ALERT AND ORIENTED X3, PT HAS BEEN AMBULATING TO THE BATHROOM AND TOLERATED SITTING UP IN THE RECLINER FOR A COUPLE OF HOURS THIS MORNING. LUNG SOUNDS DIMINISHED, BOWEL SOUNDS NORMAL. PT STATES SHE HAS NOT HAD A BOWEL MOVEMENT SINCE BEFORE SHE ARRIVED TO THE HOSPITAL. WILL CONTINUE TO MONITOR.
[2017-10-01 17:16] LABS: POC Glucose,Bedside 216 mg/dL (70-110)
[2017-10-01 21:08] LABS: POC Glucose,Bedside 295 mg/dL (70-110)
[2017-10-01 21:14] LABS: POC Glucose,Bedside 204 mg/dL (70-110)
--- NOTE | 2017-10-02 01:59 | PC.NURSE ---
Patient laying in bed resting at this time. Has been up to restroom several times. Has not worn oxygen when going to restroom.Has tolerated well. Lungs are diminished in left lobes, denies any soa. Respirations even and non labored. IV is patent. Bed locked in low position, side rails up x 2, call light within reach. Have encouraged to Deep breathing exercises to promote lung expansion. Will continue to monitor.
[2017-10-02 03:17] VITALS: O2SAT 91
[2017-10-02 04:00] VITALS: BP 146/60; PULSE 65; RESP 22; TEMP 36.4; O2SAT 97
[2017-10-02 05:53] VITALS: PULSE 73; PULSE 76
[2017-10-02 06:24] LABS: POC Glucose,Bedside 111 mg/dL (70-110)
[2017-10-02 06:47] LABS: Basophils % 0.2 % (0.1-2.0); Eosinophils # 0.1 K/mm3 (0.0-0.4); Eosinophils % 1.2 % (0.1-12.0); Hematocrit 41.5 % (37.0-47.0); Hemoglobin 13.9 g/dL (12.2-16.2); Lymphocytes % 32.4 K/mm3 (10-50); Mean Corpuscular HGB Conc 33.4 g/dL (31.8-35.4); Mean Corpuscular Hemoglobin 27.8 pg (27.0-31.2); Mean Corpuscular Volume 83.4 fl (81-99); Mean Platelet Volume 7.3 fl (7.4-10.4); Monocytes # 0.9 K/mm3 (0.1-1.0); Monocytes % 7.4 % (1.7-9.3); Neutrophils # 7.2 K/mm3 (1.8-7.8); Neutrophils % 58.8 % (37.0-80.0); Platelet Count 347 K/mm3 (142-424); Red Blood Count 4.98 M/mm3 (4.20-5.40); White Blood Count 12.2 K/mm3 (4.8-10.8)
[2017-10-02 07:00] LABS: Alanine Aminotransferase 32 U/L (12-78); Albumin Level 2.8 gm/dL (3.4-5.0); Albumin/Globulin Ratio 0.6 (1.1-1.8); Alkaline Phosphatase 87 U/L (46-116); Anion Gap 12.4 mEq/L (5-15); Aspartate Amino Transferase 31 U/L (15-37); Bilirubin,Total 0.1 mg/dL (0.2-1.0); Blood Urea Nitrogen 40 mg/dL (7-18); Calcium 9.2 mg/dL (8.5-10.1); Carbon Dioxide 29 mmol/L (21.0-32.0); Chloride 101 mmol/L (98-107); Creatinine Clearance Estimated 43 mL/min (0-300); Creatinine,Serum 1.08 mg/dL (0.55-1.02); Estimated Glomerular Filt Rate 50 ml/min (>60); GFR (African American) 61 ML/MIN (>60); Globulin 4.6 gm/dl (1.3-3.2); Glucose 102 mg/dL (74-106); Potassium 4.4 mmoL/L (3.5-5.1); Sodium 138 mmol/L (136-145); Total Protein,Serum 7.4 gm/dL (6.4-8.2)
--- NOTE | 2017-10-02 07:26 | PC.NURSE ---
Report received from Reji Mcdonald RN
[2017-10-02 08:32] VITALS: BP 118/57; PULSE 73; RESP 18; TEMP 36.6; O2SAT 98
[2017-10-02 08:41] LABS: POC Glucose,Bedside > 600 mg/dL (70-110)
--- NOTE | 2017-10-02 08:45 | HMH.DCSUM ---
General - General Admission date: 09/28/17 Discharge date: 10/02/17 HPI HPI: 67 yr old female patient seen in office yesterday with c/o of sob, chest pain. Pt was on zithromax as a oupt, while examining pt o2 sat 85% and pt reports pain midsternal and radiating to back. Pt was sent to ed for eval. Pt admitted for pneumonia and cardiac work up. Hospital Course Hospital Course: pt with slow but steady progression with iv abx and slow improvement in glu and has improved on diet and insulin - she has required o2 and will go home on o2 - Objective Vital signs: Temp Pulse Resp BP Pulse Ox 97.8 F 73 18 118/57 98 10/02/17 08:32 10/02/17 08:32 10/02/17 08:32 10/02/17 08:32 10/02/17 08:32 no acute distress, obese - *Routine HEENT Exam Head: Present: normocephalic Eye: Present: EOMI, PERRL ENT: Present: mucous membranes dry - *Routine Neck Exam Absent: JVD - *Routine Respiratory Exam Present: decreased breath sounds, rhonchi - *Routine Cardiovascular Exam Present: murmur, S4 - *Routine Abdominal Exam Present: soft - *Routine Extremities Exam Absent: calf tenderness - *Routine Skin Exam Present: intact - *Routine Neurological Exam Present: alert, oriented X3, CN II-XII intact - Routine Psychiatric Exam Present: normal affect Results Labs on day of discharge: Labs from last 24 hours 10/02/17 10/02/17 10/02/17 06:10 06:10 06:09 WBC 12.2 H RBC 4.98 Hgb 13.9 Hct 41.5 MCV 83.4 MCH 27.8 MCHC 33.4 RDW 14.0 Plt Count 347 MPV 7.3 L Neut % (Auto) 58.8 Lymph % (Auto) 32.4 [place] % (Auto) 7.4 Eos % (Auto) 1.2 Baso % (Auto) 0.2 Neut # (Auto) 7.2 Lymph # (Auto) 4.0 [place] # (Auto) 0.9 Eos # (Auto) 0.1 Baso # (Auto) 0.0 Sodium 138 Potassium 4.4 Chloride 101 Carbon Dioxide 29 Anion Gap 12.4 BUN 40 H Creatinine 1.08 H Estimated Creat Clear 43 Estimated GFR 50 L Est GFR ( Amer) 61 Glucose 102 POC Glucose 111 Calcium 9.2 Total Bilirubin 0.1 L AST 31 D ALT 32 Alkaline Phosphatase 87 Total Protein 7.4 Albumin 2.8 L Globulin 4.6 H Albumin/Globulin Ratio 0.6 L 10/01/17 10/01/17 10/01/17 19:51 17:05 13:30 WBC RBC Hgb Hct MCV MCH MCHC RDW Plt Count MPV Neut % (Auto) Lymph % (Auto) [place] % (Auto) Eos % (Auto) Baso % (Auto) Neut # (Auto) Lymph # (Auto) [place] # (Auto) Eos # (Auto) Baso # (Auto) Sodium Potassium Chloride Carbon Dioxide Anion Gap BUN Creatinine Estimated Creat Clear Estimated GFR Est GFR ( Amer) Glucose POC Glucose 204 216 295 Calcium Total Bilirubin AST ALT Alkaline Phosphatase Total Protein Albumin Globulin Albumin/Globulin Ratio 10/01/17 09/29/17 11:34 17:08 WBC RBC Hgb Hct MCV MCH MCHC RDW Plt Count MPV Neut % (Auto) Lymph % (Auto) [place] % (Auto) Eos % (Auto) Baso % (Auto) Neut # (Auto) Lymph # (Auto) [place] # (Auto) Eos # (Auto) Baso # (Auto) Sodium Potassium Chloride Carbon Dioxide Anion Gap BUN Creatinine Estimated Creat Clear Estimated GFR Est GFR ( Amer) Glucose POC Glucose 319 > 600 Calcium Total Bilirubin AST ALT Alkaline Phosphatase Total Protein Albumin Globulin Albumin/Globulin Ratio DS: Diagnosis - Discharge Diagnosis (1) Obesity Status: Acute (2) Renal insufficiency Status: Acute (3) IDDM (insulin dependent diabetes mellitus) Status: Acute (4) Pneumonia involving left lung Status: Acute (5) Obesity with body mass index greater than 30 Status: Acute Discharge Plan - Patient Discharge Instructions ACTIVITY: Continue current activity DIET: continue same diet Patient Instructions: DI for Pneumonia
--- NOTE | 2017-10-02 08:50 | P.DS_ITS ---
General - General Admission date: 09/28/17 Discharge date: 10/02/17 HPI HPI: 67 yr old female patient seen in office yesterday with c/o of sob, chest pain. Pt was on zithromax as a oupt, while examining pt o2 sat 85% and pt reports pain midsternal and radiating to back. Pt was sent to ed for eval. Pt admitted for pneumonia and cardiac work up. Hospital Course Hospital Course: pt with slow but steady progression with iv abx and slow improvement in glu and has improved on diet and insulin - she has required o2 and will go home on o2 - Objective Vital signs: Temp Pulse Resp BP Pulse Ox 97.8 F 73 18 118/57 98 10/02/17 08:32 10/02/17 08:32 10/02/17 08:32 10/02/17 08:32 10/02/17 08:32 no acute distress, obese - *Routine HEENT Exam Head: Present: normocephalic Eye: Present: EOMI, PERRL ENT: Present: mucous membranes dry - *Routine Neck Exam Absent: JVD - *Routine Respiratory Exam Present: decreased breath sounds, rhonchi - *Routine Cardiovascular Exam Present: murmur, S4 - *Routine Abdominal Exam Present: soft - *Routine Extremities Exam Absent: calf tenderness - *Routine Skin Exam Present: intact - *Routine Neurological Exam Present: alert, oriented X3, CN II-XII intact - Routine Psychiatric Exam Present: normal affect Results Labs on day of discharge: Labs from last 24 hours 10/02/17 10/02/17 10/02/17 06:10 06:10 06:09 WBC 12.2 H RBC 4.98 Hgb 13.9 Hct 41.5 MCV 83.4 MCH 27.8 MCHC 33.4 RDW 14.0 Plt Count 347 MPV 7.3 L Neut % (Auto) 58.8 Lymph % (Auto) 32.4 [place] % (Auto) 7.4 Eos % (Auto) 1.2 Baso % (Auto) 0.2 Neut # (Auto) 7.2 Lymph # (Auto) 4.0 [place] # (Auto) 0.9 Eos # (Auto) 0.1 Baso # (Auto) 0.0 Sodium 138 Potassium 4.4 Chloride 101 Carbon Dioxide 29 Anion Gap 12.4 BUN 40 H Creatinine 1.08 H Estimated Creat Clear 43 Estimated GFR 50 L Est GFR ( Amer) 61 Glucose 102 POC Glucose 111 Calcium 9.2 Total Bilirubin 0.1 L AST 31 D ALT 32 Alkaline Phosphatase 87 Total Protein 7.4 Albumin 2.8 L Globulin 4.6 H Albumin/Globulin Ratio 0.6 L 10/01/17 10/01/17 10/01/17 19:51 17:05 13:30 WBC RBC Hgb Hct MCV MCH MCHC RDW Plt Count MPV Neut % (Auto) Lymph % (Auto) [place] % (Auto) Eos % (Auto) Baso % (Auto) Neut # (Auto) Lymph # (Auto) [place] # (Auto) Eos # (Auto) Baso # (Auto) Sodium Potassium Chloride Carbon Dioxide Anion Gap BUN Creatinine Estimated Creat Clear Estimated GFR Est GFR ( Amer) Glucose POC Glucose 204 216 295 Calcium Total Bilirubin
--- NOTE | 2017-10-02 09:32 | HMH.ACPN ---
Internal Medicine - PN: Subj *Date: 10/02/17 *Time: 09:32 Exam Vital signs and Labs for Last 24 Hours: Temp Pulse Resp BP Pulse Ox 97.8 F 73 18 118/57 98 10/02/17 08:32 10/02/17 08:32 10/02/17 08:32 10/02/17 08:32 10/02/17 08:32 Laboratory Results - last 24 hr 09/29/17 17:08: POC Glucose > 600 10/01/17 11:34: POC Glucose 319 10/01/17 13:30: POC Glucose 295 10/01/17 17:05: POC Glucose 216 10/01/17 19:51: POC Glucose 204 10/02/17 06:09: POC Glucose 111 10/02/17 06:10: WBC 12.2 H, RBC 4.98, Hgb 13.9, Hct 41.5, MCV 83.4, MCH 27.8, MCHC 33.4, RDW 14.0, Plt Count 347, MPV 7.3 L, Neut % (Auto) 58.8, Lymph % (Auto) 32.4, [place] % (Auto) 7.4, Eos % (Auto) 1.2, Baso % (Auto) 0.2, Neut # (Auto) 7.2, Lymph # (Auto) 4.0, [place] # (Auto) 0.9, Eos # (Auto) 0.1, Baso # (Auto) 0.0 10/02/17 06:10: Sodium 138, Potassium 4.4, Chloride 101, Carbon Dioxide 29, Anion Gap 12.4, BUN 40 H, Creatinine 1.08 H, Estimated Creat Clear 43, Estimated GFR 50 L, Est GFR ( Amer) 61, Glucose 102, Calcium 9.2, Total Bilirubin 0.1 L, AST 31 D, ALT 32, Alkaline Phosphatase 87, Total Protein 7.4, Albumin 2.8 L, Globulin 4.6 H, Albumin/Globulin Ratio 0.6 L I & O for Last 24 hours: Intake & Output 09/29/17 09/30/17 10/01/17 10/02/17 22:59 22:59 23:59 23:59 Intake Total 555 / 555 Balance 555 / 555 Weight Microbiology Reports for the Last 24 Hours: Microbiology 09/28/17 14:40 Sputum - Expectorated Sputum Gram Stain - Final 09/28/17 14:40 Sputum - Expectorated Sputum Sputum Culture - Final Normal Respiratory Linette Assessment and Plan (1) Obesity Current visit: Yes Status: Acute Qualifiers: Obesity type: unspecified obesity type Category: Medical Code(s): E66.9 - Obesity, unspecified (2) Renal insufficiency Current visit: Yes Status: Acute Category: Medical Code(s): N28.9 - Disorder of kidney and ureter, unspecified (3) IDDM (insulin dependent diabetes mellitus) Current visit: Yes Status: Acute Category: Medical Code(s): E11.9 - Type 2 diabetes mellitus without complications; 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
[2017-10-02 09:34] VITALS: PULSE 76; PULSE 78; O2SAT 94
[2017-10-02 11:23] LABS: POC Glucose,Bedside 103 mg/dL (70-110)
--- NOTE | 2017-10-02 12:06 | PC.NURSE ---
5 minuted Room air saturation /p removal of O2 is 88%.
--- NOTE | 2017-10-02 12:09 | PC.NURSE ---
Discharge instructions given to pt and family. 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
--- NOTE | 2017-10-02 12:26 | PC.NURSE ---
Attempted to wean pt off O2. Room air saturation at rest 88%. Pt placed back on O2 @ 2 LPM via NC and saturation increased to 93%.
--- NOTE | 2017-10-02 13:25 | SW/DCPLANNER ---
Patient information has been faxed to [facility] with room air sat of 88%. Wanda has delivered O2 to [facility] and will deliver O2 to home this afternoon.
== END 2017-10-02 12:24 | disposition home or self-care (01) | DRG 194 ==
LOC: ER 13:22 → 2ND 09-29 07:19
PROVIDERS: Nurse Practitioner Family; Admitting Provider Emergency Medicine; Emergency Provider Emergency Medicine; PCP Physician Assistant; Visit Provider Emergency Medicine
DX: J18.9 Pneumonia, unspecified organism (principal); Z68.41 Body mass index [BMI] 40.0-44.9, adult; J44.9 Chronic obstructive pulmonary disease, unspecified; Z99.81 Dependence on supplemental oxygen; I10 Essential (primary) hypertension; I25.10 Atherosclerotic heart disease of native coronary artery without angina pectoris; I25.2 Old myocardial infarction; E66.9 Obesity, unspecified; Z71.3 Dietary counseling and surveillance; E78.5 Hyperlipidemia, unspecified; E11.9 Type 2 diabetes mellitus without complications; Z79.4 Long term (current) use of insulin; K21.9 Gastro-esophageal reflux disease without esophagitis
CPT/HCPCS: 36415; 71045; 80048; 80053; 82009; 82550; 82553; 82947; 82962; 83605; 84484; 85007; 85025; 87040; 87070; 87205; 87486; 87581; 87633; 87798; 93005; 94640; 94761; 97161; 99281; J1956

== ENCOUNTER → 2017-10-09 11:55 | Outpatient (CLI) | payer MEDICARE, MEDICAID, SELFPAY ==
--- NOTE | 2017-10-09 12:25 | XR_ITS ---
XR chest 2V COMPARISON: Portable upright chest 09/28/2017 HISTORY: Follow-up pneumonia TECHNIQUE: PA and lateral chest FINDINGS: Is a somewhat poor inspiration however there has been interval clearing of the left lower lobe pneumonia. There is minimal blunting of left costo phrenic angle and there is slight elevation of left hemidiaphragm. The remainder lung torres are clear. Cardiac size is borderline and there has been a previous CABG. Is kyphotic curvature and mild degenerative change of the thoracic spine. IMPRESSION: Essentially resolved left lower lobe pneumonia
== END ==
PROVIDERS: PCP Physician Assistant; Visit Provider Physician Assistant
DX: J18.9 Pneumonia, unspecified organism (principal)
CPT/HCPCS: 71046

== ENCOUNTER → 2017-11-27 10:24 | Outpatient (REF) | payer MEDICARE, MEDICAID, SELFPAY ==
[2017-11-27 13:37] LABS: Basophils % 0.4 % (0.1-2.0); Eosinophils # 0.1 K/mm3 (0.0-0.4); Hematocrit 36.3 % (37.0-47.0); Lymphocytes % 27.6 K/mm3 (10-50); Mean Corpuscular Hemoglobin 27.8 pg (27.0-31.2); Mean Corpuscular Volume 84.1 fl (81-99); Mean Platelet Volume 7.2 fl (7.4-10.4); Monocytes # 0.4 K/mm3 (0.1-1.0); Neutrophils # 4.7 K/mm3 (1.8-7.8); Neutrophils % 65.1 % (37.0-80.0); Platelet Count 231 K/mm3 (142-424); Red Blood Count 4.31 M/mm3 (4.20-5.40); Red Cell Distribution Width 14.4 % (11.5-17.5); White Blood Count 7.2 K/mm3 (4.8-10.8)
[2017-11-27 14:02] LABS: Alanine Aminotransferase 31 U/L (12-78); Albumin Level 3.2 gm/dL (3.4-5.0); Albumin/Globulin Ratio 0.9 (1.1-1.8); Alkaline Phosphatase 92 U/L (46-116); Anion Gap 9.7 mEq/L (5-15); Aspartate Amino Transferase 24 U/L (15-37); Bilirubin,Total 0.4 mg/dL (0.2-1.0); Blood Urea Nitrogen 16 mg/dL (7-18); Calcium 9.3 mg/dL (8.5-10.1); Carbon Dioxide 32 mmol/L (21.0-32.0); Chloride 101 mmol/L (98-107); Chol/HDL Ratio 3.9 (1-3.5); Cholesterol 129 mg/dL (140-200); Creatinine,Serum 0.87 mg/dL (0.55-1.02); Estimated Glomerular Filt Rate 65 ml/min (>60); GFR (African American) 78 ML/MIN (>60); Globulin 3.6 gm/dl (1.3-3.2); Glucose 337 mg/dL (74-106); HDL Cholesterol 33 mg/dL (29-89); LDL Cholesterol 22 mg/dL (0-130); Potassium 4.7 mmoL/L (3.5-5.1); Sodium 138 mmol/L (136-145); T4 (Thyroxine) 9.3 ug/dl (4.7-13.3); Total Protein,Serum 6.8 gm/dL (6.4-8.2); Triglycerides 369 mg/dL (30-200); VLDL Cholesterol 74 mg/dL (0-40)
[2017-11-27 14:23] LABS: Hemoglobin A1C 9.2 % (0.0-7.0)
[2017-11-28 12:00] LABS: Vitamin D 25 Hydroxy 27.1 ng/mL (30.0-100.0)
== END ==
LOC: LAB 10:24
PROVIDERS: Visit Provider Physician Assistant
DX: J40 Bronchitis, not specified as acute or chronic (principal); E11.9 Type 2 diabetes mellitus without complications; E66.9 Obesity, unspecified; Z79.4 Long term (current) use of insulin
CPT/HCPCS: 80053; 80061; 82652; 83036; 84436; 84443; 85025

== ENCOUNTER → 2017-11-29 12:23 | Outpatient (CLI) | payer MEDICARE, MEDICAID, SELFPAY | PROVIDERS: PCP Physician Assistant; Visit Provider Physician Assistant | DX: R00.2 Palpitations (principal) | CPT/HCPCS: 93225; 93226 ==

== ENCOUNTER → 2018-01-22 15:39 | Outpatient (CLI) | payer MEDICARE, SELFPAY ==
[2018-01-22 17:37] LABS: Basophils % 0.4 % (0.1-2.0); Eosinophils # 0.2 K/mm3 (0.0-0.4); Eosinophils % 2.3 % (0.1-12.0); Hematocrit 39.5 % (37.0-47.0); Hemoglobin 12.7 g/dL (12.2-16.2); Lymphocytes # 3.2 K/mm3 (0.7-4.5); Lymphocytes % 32.2 K/mm3 (10-50); Mean Corpuscular HGB Conc 32.2 g/dL (31.8-35.4); Mean Corpuscular Hemoglobin 26.3 pg (27.0-31.2); Mean Corpuscular Volume 81.7 fl (81-99); Mean Platelet Volume 6.9 fl (7.4-10.4); Monocytes # 0.5 K/mm3 (0.1-1.0); Monocytes % 4.5 % (1.7-9.3); Neutrophils # 6.1 K/mm3 (1.8-7.8); Neutrophils % 60.6 % (37.0-80.0); Platelet Count 311 K/mm3 (142-424); Red Blood Count 4.84 M/mm3 (4.20-5.40)
[2018-01-22 18:05] LABS: Alanine Aminotransferase 35 U/L (12-78); Albumin Level 3.4 gm/dL (3.4-5.0); Albumin/Globulin Ratio 0.8 (1.1-1.8); Alkaline Phosphatase 87 U/L (46-116); Anion Gap 9.7 mEq/L (5-15); Aspartate Amino Transferase 29 U/L (15-37); Bilirubin,Total 0.3 mg/dL (0.2-1.0); Blood Urea Nitrogen 22 mg/dL (7-18); Calcium 9.1 mg/dL (8.5-10.1); Carbon Dioxide 32 mmol/L (21.0-32.0); Chloride 96 mmol/L (98-107); Creatinine,Serum 0.89 mg/dL (0.55-1.02); Estimated Glomerular Filt Rate 63 ml/min (>60); GFR (African American) 76 ML/MIN (>60); Globulin 4.1 gm/dl (1.3-3.2); Glucose 216 mg/dL (74-106); Potassium 3.7 mmoL/L (3.5-5.1); Sodium 134 mmol/L (136-145); Total Protein,Serum 7.5 gm/dL (6.4-8.2)
== END ==
PROVIDERS: Visit Provider Physician Assistant
DX: J40 Bronchitis, not specified as acute or chronic (principal)
CPT/HCPCS: 80053; 85025

== ENCOUNTER → 2018-02-09 14:45 | Outpatient (CLI) | payer MEDICARE, MEDICAID, SELFPAY ==
--- NOTE | 2018-02-09 14:46 | CA_ITS ---
PROCEDURE: 2-D M-mode and color Doppler study INDICATIONS FOR THE TEST: Chest pain COPD Heart Murmur Tobacco Smoking Palpitations Fatigue Syncope Edema Hypertension Diabetes Mellitus+ Rheumatic Fever SOB+TOMLINSON Obesity Hyperlipidemia Family History HD Additional History PATIENT INFORMATION HEIGHT: 64 WEIGHT:254 GENDER: Female B/P:126/80 2-D/M-MODE INTERPRETATION: 2-D MEASUREMENTS OBSERVED VALUES IN CMS Right Ventricular Dimension (RVDd) 2.9 Interventricular Septum (Thickness)(IVsd) 1.5 Left Ventricular Internal Dimensions(LVIDd) 5.3 Left Ventricular Posterior Wall (Thickness)(LVPWd) 1.4 Aortic Root 3.1 Aortic Cusp Separation 1.6 Left Atrial Dimensions (LAD) 5.2 2D 1. Left atrium is moderately enlarged, left ventricle is normal size, mild concentric left ventricular hypertrophy, visually estimated ejection fraction 55% with no obvious regional wall motion abnormality. 2. The right atrium and right ventricle are mildly enlarged with normal contractility. 3. The aortic valve is thickened and calcified mild restriction the leaflet mobility. 4. The mitral and tricuspid valve leaflets are minimally thickened. 5. The pulmonic valve is poorly visualized. 6. No significant pericardial effusion noted. DOPPLER INTERROGATION: Doppler interrogation of the aortic, mitral and tricuspid valvular presence of mild aortic, mild mitral and tricuspid regurgitation, tricuspid and jet velocity insufficient for calculation of the right ventricular systolic pressure, grade 1 diastolic dysfunction seen with tissue Doppler evidence of raised left atrial pressure. CONCLUSION: 1. Biatrial enlargement, normal left ventricular size, mild concentric left ventricular hypertrophy, visually estimated ejection fraction 55% with no signal wall motion abnormality, grade 1 diastolic dysfunction seen with tissue Doppler evidence of raised left atrial pressure. 2. Thickened and calcified aortic valve, mean gradient across valve of 18 mmHg, consistent with mild aortic stenosis, there is mild aortic insufficiency present. 3. Mild mitral and tricuspid regurgitation 4. No significant pericardial effusion noted.
== END ==
PROVIDERS: PCP Physician Assistant; Visit Provider Emergency Medicine
DX: R06.09 Other forms of dyspnea (principal)
CPT/HCPCS: 93306

== ENCOUNTER → 2018-02-13 10:31 | Outpatient (POV) | payer MEDICARE, SELFPAY | PROVIDERS: PCP Physician Assistant; Visit Provider Internal Medicine | DX: Z00.00 Encounter for general adult medical examination without abnormal findings (principal) ==

== ENCOUNTER 2018-02-27 21:06 | Inpatient (IN) ==
[2018-02-27 21:51] LABS: Basophils # 0.1 K/mm3 (0-0.2); Basophils % 0.4 % (0.1-2.0); Eosinophils # 0.2 K/mm3 (0.0-0.4); Eosinophils % 1.7 % (0.1-12.0); Hematocrit 36.5 % (37.0-47.0); Hemoglobin 12.3 g/dL (12.2-16.2); Lymphocytes # 2.4 K/mm3 (0.7-4.5); Lymphocytes % 16.7 K/mm3 (10-50); Mean Corpuscular HGB Conc 33.9 g/dL (31.8-35.4); Mean Corpuscular Hemoglobin 26.9 pg (27.0-31.2); Mean Corpuscular Volume 79.6 fl (81-99); Mean Platelet Volume 6.9 fl (7.4-10.4); Monocytes # 0.7 K/mm3 (0.1-1.0); Monocytes % 4.9 % (1.7-9.3); Neutrophils % 76.4 % (37.0-80.0); Platelet Count 296 K/mm3 (142-424); Red Blood Count 4.58 M/mm3 (4.20-5.40); Red Cell Distribution Width 14.3 % (11.5-17.5); White Blood Count 14.4 K/mm3 (4.8-10.8)
[2018-02-27 21:55] LABS: Albumin/Globulin Ratio 0.6 (1.1-1.8); Bilirubin,Total 0.4 mg/dL (0.2-1.0); Calcium 9.7 mg/dL (8.5-10.1); Globulin 5.4 gm/dl (1.3-3.2); Total Protein,Serum 8.4 gm/dL (6.4-8.2)
--- NOTE | 2018-02-27 22:39 | Emergency Department Note ---
ED Disposition Clinical Impression: IDDM (insulin dependent diabetes mellitus), Renal insufficiency Abscess of skin or subcutaneous tissue Qualifiers: Site of cutaneous abscess: extremity Site of cutaneous abscess of extremity: upper extremity Laterality: left Qualified Code(s): L02.414 - Cutaneous abscess of left upper limb Obesity Qualifiers: Obesity type: unspecified obesity type Obesity classification: adult class 3 ( BMI >= 40) Serious obesity comorbidity presence: unspecified whether serious comorbidity present Body mass index: BMI 40.0-44.9 Qualified Code(s): E66.01 - Morbid (severe) obesity due to excess calories; Z68.41 - Body mass index (BMI) 40.0-44.9, adult Disposition: Admitted as Observation Condition on Discharge: Good Instructions: DI for Skin Abscess Referrals: Hilary Bagley PA [Primary Care Provider] - - Critical Care Critical Care Time: No Attestation: On 02/27/18, the high probability of a clinically significant, sudden or life threatening deterioration of the following system(s) required my full and direct attention, intervention and personal management. The time I documented below is in addition to time spent performing reported procedures but includes the following listed in this critical care notation. Medical Decision Making - Medical Records Medical records reviewed: Yes: I reviewed the patient's medical records. - Sam Inquiry Pt receiving controlled substance: No Vital Signs: 02/27/18 21:16 Temperature 99.1 F Temperature Source Oral Pulse Rate [Right Radial] 78 Respiratory Rate 20 Blood Pressure [Right Arm] 121/83 Blood Pressure Mean [Right Arm] 95 02 Sat by Pulse Oximetry 95 Oxygen Delivery Method Nasal Cannula Oxygen Flow Rate (LPM) 2 - Lab Data Lab results reviewed: Yes: I reviewed the patient's lab results. Lab Results 02/27/18 21:35: WBC 14.4 H, RBC 4.58, Hgb 12.3, Hct 36.5 L, MCV 79.6 L, MCH 26.9 L, MCHC 33.9, RDW 14.3, Plt Count 296, MPV 6.9 L, Neut % (Auto) 76.4, Lymph % (Auto) 16.7, [place] % (Auto) 4.9, Eos % (Auto) 1.7, Baso % (Auto) 0.4, Neut # (Auto) 11.0 H, Lymph # (Auto) 2.4, [place] # (Auto) 0.7, Eos # (Auto) 0.2, Baso # (Auto) 0.1 02/27/18 21:35: Sodium 131 L, Potassium 4.0, Chloride 93 L, Carbon Dioxide 31, Anion Gap 11.0, BUN 29 H, Creatinine 1.23 H, Estimated Creat Clear 39, Estimated GFR 43 L, Est GFR ( Amer) 53 L, Glucose 331 H, Calcium 9.7, Total Bilirubin 0.4, AST 15, ALT 26, Alkaline Phosphatase 110, Total Protein 8.4 H, Albumin 3.0 L, Globulin 5.4 H, Albumin/Globulin Ratio 0.6 L 02/27/18 21:35: Lactate 1.4 Result diagrams: 02/27/18 21:35 02/27/18 21:35 Orders (Tests/Meds): ORDERS Category Date Time Status Blood Culture Stat Micro 02/27/18 21:35 Received - Physician Consults Physician Consulted: [email or web address] Reason -: Pt condition Skin/Abscess/FB HPI - General Chief complaint: Skin/Abscess/Foreign Body Stated complaint: Sore under left arm Time Seen by Provider: 02/27/18 21:30 Mode of Arrival: Family Vehicle Limitations: No Limitations Description of Symptoms (Recalled from ER Triage Doc. by RN): PT C/O LEFT AXILLA AREA BOIL X 2 WEEKS - History of Present Illness HPI narrative: pt with tender swelling under lt axilla progressive over the last few days with pain and pt is iddm complaint: abscess/boil Onset (ago): day(s) Tetanus up to date: unsure Location: LUE Severity: moderate Associated symptoms: denies other symptoms Treatments prior to arrival: none - Related Data Home Medications Medication Instructions Recorded Confirmed hydrocodone 5 mg-acetaminophen 325 1 tab PO BID tab 07/21/17 02/27/18 mg tablet Budesonide/Formoterol Fumarate 2 puff INHALATION Q12H 09/28/17 02/27/18 [Symbicort 160-4.5 Mcg Inhaler] Furosemide [Furosemide 40MG tAB] 40 mg PO DAILY 02/27/18 02/27/18 Potassium Chloride [K-Tab ER 20 20 meq PO BID 02/27/18 02/27/18 mEq] Previous Rx's Medication Instructions Recorded amitriptyline 10 mg tablet 10 mg PO HS #90 tab 01/22/18 bisoprolol fumarate 5 mg tablet 5 mg PO DAILY #90 tab 01/22/18 buspirone 5 mg tablet 5 mg PO DAILY #90 tab 01/22/18 citalopram 20 mg tablet 20 mg PO DAILY #90 tab 01/22/18 clonidine HCl 0.2 mg tablet 0.2 mg PO DAILY #90 tab 01/22/18 clopidogrel 75 mg tablet 75 mg PO DAILY #90 tab 01/22/18 ergocalciferol (vitamin D2) 50,000 50,000 unit PO QWEEK #90 cap 01/22/18 unit capsule gabapentin 800 mg tablet 800 mg PO QID #120 tab 01/22/18 insulin aspart U-100 100 unit/mL 40 unit SUB-Q TID #36 ml 01/22/18 subcutaneous pen insulin detemir (U-100) 100 80 unit SUB-Q BID #48 ml 01/22/18 unit/mL (3 mL) subcutaneous pen levothyroxine 25 mcg tablet 25 mcg PO QDAY #90 tab 01/22/18 losartan 100 1 tab PO DAILY #90 tab 01/22/18 mg-hydrochlorothiazide 12.5 mg tablet metoclopramide 5 mg tablet 5 mg PO BID #180 tab 01/22/18 omeprazole 20 mg capsule,delayed 20 mg PO DAILY #90 cap 01/22/18 release ranitidine 300 mg tablet 300 mg PO BID #180 tab 01/22/18 rosuvastatin 20 mg tablet 20 mg PO HS #90 tab 01/22/18 meclizine 25 mg tablet 25 mg PO TID PRN 30 Days #90 tab 01/31/18 Allergies Allergy/AdvReac Type Severity Reaction Status Date / Time Iodinated Contrast Media - Allergy Severe S-DIFF. Verified 02/27/18 21:20 Oral and BREATHING [Iodinated Contrast Media - IV Dye] celecoxib [From CELEBREX] Allergy Unknown SWELLING Verified 02/27/18 21:20 ibuprofen [IBUPROFEN] Allergy Unknown S-BLISTERING Verified 02/27/18 21:20 WELTS meloxicam [MELOXICAM] Allergy Unknown S-BLISTERING Verified 02/27/18 21:20 WELTS Penicillins [PENICILLINS] Allergy Unknown I-HIVES Verified 02/27/18 21:20 rofecoxib [From VIOXX] Allergy Unknown I-HIVES Verified 02/27/18 21:20 [facility] History I have reviewed the patient's past medical history: Yes Medical History: Reports:: Asthma, Chronic Obstructive Pulmonary Disease (COPD) , Coronary Artery Disease, Diabetes Mellitus Type 2, Gastroesophageal Reflux Disease(GERD), Hyperlipidemia, Hypertension, Myocardial Infarction Denies:: Cancer, Diabetes Mellitus Type 1, MRSA Other Medical History: Reports: Fibromyalgia Comment: Anxiety, Depression, Vitamin D Deficiency, Gastritis,GERD, degenerative disc disease Laterality Cases: Right: Lumpectomy Other Surgeries: Yes: Appendectomy, Hysterectomy-Total, Tubal Ligation Amputation: No Fractures: No Comment: Gallbladder, Heart Cath, Rt breast lump removal, CABG, Eye surgery - Social History Smoking Status: Former smoker Alcohol Intake: never Substance Use Type: denies use Occupational Status: retired Housing: house Household Members: family - Psychiatric History Expresses thoughts of harming self/others: None Suicide Plan Description: No Plan Family Hx:: Cancer Comment: Epilepsy-father ROS Obtained: Yes All systems reviewed & no additional complaints - Constitutional Constitutional: Denies fever(s) - Eyes Eyes: Denies change in vision - ENT Ears, Nose, Mouth, and Throat: Denies sore throat - Cardiovascular Cardiovascular: Denies chest pain - Respiratory Respiratory: No cough - Gastrointestinal Gastrointestingal: Denies: vomiting - Genitourinary Female Genitourinary: Denies hematuria - Musculoskeletal Musculoskeletal: Denies joint pain - Integumentary/Breasts Skin/Breast: Reports boil - Neurologic Neurologic: Denies seizure-like activity Physical Exam - General General appearance: in no apparent distress - Head Head exam: normocephalic - Eye Eye exam: Present: PERRL, EOMI - ENT ENT exam: Present: mucous membranes dry - Neck Neck exam: Present: trachea midline - Respiratory Respiratory exam: Absent: respiratory distress - Cardiovascular Cardiovascular exam: Present: regular rate, systolic murmur, +S4 - Abdominal Exam Abdominal exam: Present: soft - Extremities Exam Extremities exam: Absent: calf tenderness - Neurological Exam Neurological exam: Present: alert, oriented X3, CN II-XII intact - Psychiatric Psychiatric exam: Present: normal affect - Skin Skin exam: Present: other (tender boil lt axilla )
--- NOTE | 2018-02-28 06:43 | History & Physical Report ---
*Admission Date: 02/27/18 *Chief complaint: abscess *History of present illness: this wf who is diabetic has progressive swelling and pain lt axilla and was seen in the ed and admitted for iv abx and surg eval- [facility] History I have reviewed the patient's past medical history: Yes Medical History: Reports:: Asthma, Chronic Obstructive Pulmonary Disease (COPD) , Coronary Artery Disease, Diabetes Mellitus Type 2, Gastroesophageal Reflux Disease(GERD), Hyperlipidemia, Hypertension, Myocardial Infarction Denies:: Cancer, Diabetes Mellitus Type 1, MRSA Other Medical History: Reports: Fibromyalgia Laterality Cases: Right: Lumpectomy Other Surgeries: Yes: Appendectomy, CABG, Cardiac Catheterization, Cardiac Surgery, Cholecystectomy, Hysterectomy-Total, Tubal Ligation Amputation: No Fractures: No - *Social History Educational Level: Completed Grade School Smoking Status: Former smoker Alcohol Intake: never Substance Use Type: denies use Occupational Status: retired Housing: house Household Members: family - Psychiatric History Expresses thoughts of harming self/others: None Suicide Plan Description: No Plan *Family Hx:: Cancer Review of Systems - Review of Systems Review of systems:: pertinent systems reviewed and negative unless documented below - Constitutional Reports malaise, Denies chills - Eyes Denies change in vision - ENT Denies sore throat - *Cardiovascular Denies chest pain - *Respiratory Denies cough - *Gastrointestinal Denies abdominal pain - *Musculoskeletal Denies joint pain - Integumentary/Breasts Reports boil - *Neurologic Denies seizure-like activity - Psychiatric Denies anxiety Meds Home Medications Medication Instructions Recorded Confirmed Type hydrocodone 5 mg-acetaminophen 325 1 tab PO TID tab 07/21/17 02/28/18 History mg tablet Budesonide/Formoterol Fumarate 2 puff INHALATION Q12H 09/28/17 02/27/18 History [Symbicort 160-4.5 Mcg Inhaler] Furosemide [Furosemide 40MG tAB] 40 mg PO DAILY 02/27/18 02/27/18 History Potassium Chloride [K-Tab ER 20 20 meq PO BID 02/27/18 02/27/18 History mEq] Amitriptyline HCl [Elavil 25mg 25 mg PO DAILY 02/28/18 02/28/18 History tablet] Baclofen [Lioresal 10mg tablet] 10 mg PO BIDP PRN 08/08/18 08/08/18 History [place]-3 Acid Ethyl Esters [Lovaza] 2 gm PO BID 02/28/18 02/28/18 History Allergies Allergy/AdvReac Type Severity Reaction Status Date / Time Iodinated Contrast Media - Allergy Severe S-DIFF. Verified 02/27/18 21:20 Oral and BREATHING [Iodinated Contrast Media - IV Dye] celecoxib [From CELEBREX] Allergy Unknown SWELLING Verified 02/27/18 21:20 ibuprofen [IBUPROFEN] Allergy Unknown S-BLISTERING Verified 02/27/18 21:20 WELTS meloxicam [MELOXICAM] Allergy Unknown S-BLISTERING Verified 02/27/18 21:20 WELTS Penicillins [PENICILLINS] Allergy Unknown I-HIVES Verified 02/27/18 21:20 rofecoxib [From VIOXX] Allergy Unknown I-HIVES Verified 02/27/18 21:20 Exam Vital signs and Labs for Last 24 Hours: Temp Pulse Resp BP Pulse Ox 98.6 F 78 18 135/70 98 02/28/18 04:00 02/28/18 04:00 02/28/18 04:00 02/28/18 04:00 02/28/18 04:00 Laboratory Results - last 24 hr 02/27/18 21:35: WBC 14.4 H, RBC 4.58, Hgb 12.3, Hct 36.5 L, MCV 79.6 L, MCH 26.9 L, MCHC 33.9, RDW 14.3, Plt Count 296, MPV 6.9 L, Neut % (Auto) 76.4, Lymph % (Auto) 16.7, [place] % (Auto) 4.9, Eos % (Auto) 1.7, Baso % (Auto) 0.4, Neut # (Auto) 11.0 H, Lymph # (Auto) 2.4, [place] # (Auto) 0.7, Eos # (Auto) 0.2, Baso # (Auto) 0.1 02/27/18 21:35: Sodium 131 L, Potassium 4.0, Chloride 93 L, Carbon Dioxide 31, Anion Gap 11.0, BUN 29 H, Creatinine 1.23 H, Estimated Creat Clear 39, Estimated GFR 43 L, Est GFR ( Amer) 53 L, Glucose 331 H, Calcium 9.7, Total Bilirubin 0.4, AST 15, ALT 26, Alkaline Phosphatase 110, Total Protein 8.4 H, Albumin 3.0 L, Globulin 5.4 H, Albumin/Globulin Ratio 0.6 L 02/27/18 21:35: Lactate 1.4 02/28/18 06:06: POC Glucose 279 H I & O for Last 24 hours: Intake & Output 02/25/18 02/26/18 02/27/18 02/28/18 11:59 11:59 11:59 11:59 Weight 252 lb 1 oz - Constitutional no acute distress, obese - *Routine HEENT Exam Head: Present: normocephalic Eye: Present: EOMI, PERRL ENT: Present: mucous membranes dry - *Routine Neck Exam Present: supple - *Routine Respiratory Exam Present: decreased breath sounds - *Routine Cardiovascular Exam Present: RRR, murmur, S4 - *Routine Abdominal Exam Present: soft - *Routine Extremities Exam Present: edema. Absent: calf tenderness - *Routine Skin Exam Comments: 3x4 cm lt axilla abscess - *Routine Neurological Exam Present: alert, oriented X3, CN II-XII intact - Routine Psychiatric Exam Present: normal affect H&P: Result - Labs Labs: Short CBC 02/27/18 Range/Units 21:35 WBC 14.4 H (4.8-10.8) K/mm3 Hgb 12.3 (12.2-16.2) g/dL Hct 36.5 L (37.0-47.0) % Plt Count 296 (142-424) K/mm3 BMP 02/27/18 21:35 Sodium 131 L Potassium 4.0 Chloride 93 L Carbon Dioxide 31 BUN 29 H Creatinine 1.23 H Glucose 331 H Calcium 9.7 Liver Function 02/27/18 Range/Units 21:35 Total Bilirubin 0.4 (0.2-1.0) mg/dL AST 15 (15-37) U/L ALT 26 (12-78) U/L Alkaline Phosphatase 110 (46-116) U/L Albumin 3.0 L (3.4-5.0) gm/dL Assessment and Plan (1) Abscess Current visit: Yes Status: Acute Category: Medical Code(s): L02.91 - Cutaneous abscess, unspecified (2) Diabetes mellitus Current visit: No Status: Chronic Qualifiers: Category: Medical Code(s): E11.9 - Type 2 diabetes mellitus without complications (3) Renal insufficiency Current visit: Yes Status: Acute Category: Medical Code(s): N28.9 - Disorder of kidney and ureter, unspecified (4) Obesity Current visit: Yes Status: Acute Qualifiers: Obesity type: unspecified obesity type Obesity classification: adult class 3 (BMI >= 40) Serious obesity comorbidity presence: unspecified whether serious comorbidity present Body mass index: BMI 40.0-44.9 Qualified Code(s) : E66.01 - Morbid (severe) obesity due to excess calories; Z68.41 - Body mass index (BMI) 40.0-44.9, adult Category: Medical Code(s): E66.9 - Obesity, unspecified
--- NOTE | 2018-02-28 06:44 | Consult Report ---
*Admission Date: 02/28/18 *Chief complaint: ABSCESS *History of present illness: Patient is a 67-year-old diabetic female. She has had a "boil" in the left axilla for about 3 weeks. It had become progressively more severe with increasing tenderness and pain despite home remedies and she presented to the emergency department late in the evening yesterday. She was admitted for inpatient management and surgical consultation for incision and drainage. Review of Systems - Review of Systems Review of systems:: pertinent systems reviewed and negative unless documented below - *Neurologic Denies seizure-like activity [facility] History Medical History: Reports:: Asthma, Chronic Obstructive Pulmonary Disease (COPD) , Coronary Artery Disease, Diabetes Mellitus Type 2, Gastroesophageal Reflux Disease(GERD), Hyperlipidemia, Hypertension, Myocardial Infarction Denies:: Cancer, Diabetes Mellitus Type 1, MRSA Other Medical History: Reports: Fibromyalgia Laterality Cases: Right: Lumpectomy Other Surgeries: Yes: Appendectomy, CABG, Cardiac Catheterization, Cardiac Surgery, Cholecystectomy, Hysterectomy-Total, Tubal Ligation Amputation: No Fractures: No - *Social History Educational Level: Completed Grade School Smoking Status: Former smoker Alcohol Intake: never Substance Use Type: denies use Occupational Status: retired Housing: house Household Members: family - Psychiatric History Expresses thoughts of harming self/others: None Suicide Plan Description: No Plan *Family Hx:: Cancer Meds Home Medications Medication Instructions Recorded Confirmed Type hydrocodone 5 mg-acetaminophen 325 1 tab PO BID tab 07/21/17 02/27/18 History mg tablet Budesonide/Formoterol Fumarate 2 puff INHALATION Q12H 09/28/17 02/27/18 History [Symbicort 160-4.5 Mcg Inhaler] Furosemide [Furosemide 40MG tAB] 40 mg PO DAILY 02/27/18 02/27/18 History Potassium Chloride [K-Tab ER 20 20 meq PO BID 02/27/18 02/27/18 History mEq] Allergies Allergy/AdvReac Type Severity Reaction Status Date / Time Iodinated Contrast Media - Allergy Severe S-DIFF. Verified 02/27/18 21:20 Oral and BREATHING [Iodinated Contrast Media - IV Dye] celecoxib [From CELEBREX] Allergy Unknown SWELLING Verified 02/27/18 21:20 ibuprofen [IBUPROFEN] Allergy Unknown S-BLISTERING Verified 02/27/18 21:20 WELTS meloxicam [MELOXICAM] Allergy Unknown S-BLISTERING Verified 02/27/18 21:20 WELTS Penicillins [PENICILLINS] Allergy Unknown I-HIVES Verified 02/27/18 21:20 rofecoxib [From VIOXX] Allergy Unknown I-HIVES Verified 02/27/18 21:20 Exam Vital signs and Labs for Last 24 Hours: Temp Pulse Resp BP Pulse Ox 98.6 F 78 18 135/70 98 02/28/18 04:00 02/28/18 04:00 02/28/18 04:00 02/28/18 04:00 02/28/18 04:00 Laboratory Results - last 24 hr 02/27/18 21:35: WBC 14.4 H, RBC 4.58, Hgb 12.3, Hct 36.5 L, MCV 79.6 L, MCH 26.9 L, MCHC 33.9, RDW 14.3, Plt Count 296, MPV 6.9 L, Neut % (Auto) 76.4, Lymph % (Auto) 16.7, [place] % (Auto) 4.9, Eos % (Auto) 1.7, Baso % (Auto) 0.4, Neut # (Auto) 11.0 H, Lymph # (Auto) 2.4, [place] # (Auto) 0.7, Eos # (Auto) 0.2, Baso # (Auto) 0.1 02/27/18 21:35: Sodium 131 L, Potassium 4.0, Chloride 93 L, Carbon Dioxide 31, Anion Gap 11.0, BUN 29 H, Creatinine 1.23 H, Estimated Creat Clear 39, Estimated GFR 43 L, Est GFR ( Amer) 53 L, Glucose 331 H, Calcium 9.7, Total Bilirubin 0.4, AST 15, ALT 26, Alkaline Phosphatase 110, Total Protein 8.4 H, Albumin 3.0 L, Globulin 5.4 H, Albumin/Globulin Ratio 0.6 L 02/27/18 21:35: Lactate 1.4 02/28/18 06:06: POC Glucose 279 H I & O for Last 24 hours: Intake & Output 02/25/18 02/26/18 02/27/18 02/28/18 11:59 11:59 11:59 11:59 Weight 252 lb 1 oz - Constitutional obese - *Routine Respiratory Exam Present: CTA bilaterally - *Routine Cardiovascular Exam Present: RRR - *Routine Abdominal Exam Present: soft - *Routine Skin Exam Comments: In the left axilla inferiorly there is a central area of fluctuance with erythema. Palpation is markedly tender. There is at least 6-7 cm of induration. Results - Labs 02/27/18 21:35 02/27/18 21:35 Laboratory Results - last 24 hr 02/27/18 21:35: WBC 14.4 H, RBC 4.58, Hgb 12.3, Hct 36.5 L, MCV 79.6 L, MCH 26.9 L, MCHC 33.9, RDW 14.3, Plt Count 296, MPV 6.9 L, Neut % (Auto) 76.4, Lymph % (Auto) 16.7, [place] % (Auto) 4.9, Eos % (Auto) 1.7, Baso % (Auto) 0.4, Neut # (Auto) 11.0 H, Lymph # (Auto) 2.4, [place] # (Auto) 0.7, Eos # (Auto) 0.2, Baso # (Auto) 0.1 02/27/18 21:35: Sodium 131 L, Potassium 4.0, Chloride 93 L, Carbon Dioxide 31, Anion Gap 11.0, BUN 29 H, Creatinine 1.23 H, Estimated Creat Clear 39, Estimated GFR 43 L, Est GFR ( Amer) 53 L, Glucose 331 H, Calcium 9.7, Total Bilirubin 0.4, AST 15, ALT 26, Alkaline Phosphatase 110, Total Protein 8.4 H, Albumin 3.0 L, Globulin 5.4 H, Albumin/Globulin Ratio 0.6 L 02/27/18 21:35: Lactate 1.4 02/28/18 06:06: POC Glucose 279 H Assessment and Plan - Assessment and plan all Dx Assessment and Plan for all problems:: Patient has left axillary abscess. Plan for incision and drainage under anesthesia later today.
--- NOTE | 2018-02-28 07:47 | Pharmacy Consult Notes ---
[facility] Pharmacy VTE Monitoring - Patient Demographics Admission date: 02/27/18 Report Date: 02/28/18 Time: 07:47 Allergies/Adverse Reactions: Patient Allergies Iodinated Contrast Media - Oral and [Iodinated Contrast Media - IV Dye] Allergy (Severe, Verified 02/27/18 21:20) S-DIFF. BREATHING celecoxib [From CELEBREX] Allergy (Unknown, Verified 02/27/18 21:20) SWELLING ibuprofen [IBUPROFEN] Allergy (Unknown, Verified 02/27/18 21:20) S-BLISTERING WELTS meloxicam [MELOXICAM] Allergy (Unknown, Verified 02/27/18 21:20) S-BLISTERING WELTS Penicillins [PENICILLINS] Allergy (Unknown, Verified 02/27/18 21:20) I-HIVES rofecoxib [From VIOXX] Allergy (Unknown, Verified 02/27/18 21:20) I-HIVES Height: 1.65 m Weight: 114.334 kg Patient Problems: Current Active Problems Obesity (Acute) Renal insufficiency (Acute) IDDM (insulin dependent diabetes mellitus) (Acute) Abscess of skin or subcutaneous tissue (Acute) - VTE Risk Labs: VTE Related Lab Results Hgb 12.3 g/dL (12.2-16.2) 02/27/18 21:35 Hct 36.5 % (37.0-47.0) L 02/27/18 21:35 Plt Count 296 K/mm3 (142-424) 02/27/18 21:35 BUN 29 mg/dL (7-18) H 02/27/18 21:35 Creatinine 1.23 mg/dL (0.55-1.02) H 02/27/18 21:35 Estimated Creat Clear 39 mL/min (0-300) 02/27/18 21:35 Was VTE Risk Assessment Performed: No VTE Score: 7 VTE Risk Level: Moderate Risk - Prophylaxis VTE Prophylaxis Ordered?: Yes Types of VTE Prophylaxis: TEDS Knee High Location of Applied Device: Bilateral Lower Extremeties - VTE Diagnosis Confirmed Treatment or plan recommended: Continue Current Treatment
[2018-02-28 08:21] LABS: Basophils % 0.3 % (0.1-2.0); Eosinophils # 0.3 K/mm3 (0.0-0.4); Eosinophils % 2.3 % (0.1-12.0); Hematocrit 34.7 % (37.0-47.0); Hemoglobin 11.8 g/dL (12.2-16.2); Lymphocytes # 2.6 K/mm3 (0.7-4.5); Lymphocytes % 18.4 K/mm3 (10-50); Mean Corpuscular HGB Conc 33.8 g/dL (31.8-35.4); Mean Corpuscular Hemoglobin 27.2 pg (27.0-31.2); Mean Corpuscular Volume 80.4 fl (81-99); Mean Platelet Volume 7.7 fl (7.4-10.4); Monocytes # 0.7 K/mm3 (0.1-1.0); Monocytes % 4.9 % (1.7-9.3); Neutrophils # 10.3 K/mm3 (1.8-7.8); Neutrophils % 74.1 % (37.0-80.0); Platelet Count 299 K/mm3 (142-424); Red Blood Count 4.32 M/mm3 (4.20-5.40); Red Cell Distribution Width 14.3 % (11.5-17.5)
[2018-02-28 08:31] LABS: Anion Gap 8.6 mEq/L (5-15); Calcium 9.5 mg/dL (8.5-10.1); Potassium 3.6 mmoL/L (3.5-5.1)
--- NOTE | 2018-02-28 13:00 | Progress Note ---
[facility] Anesthesia Checklist - Patient Identification Patient Identification: Arm Band, Verbal (Name & ) - Structural Data Admitted From: Inpatient Planned Operative Procedure/s: i and d axilla Consent for Planned Operative Procedure(s) Verified: Yes Verified Documents: Surgical Consent, History and Physical - NPO Status Verified Time NPO: 00:00 - Additional verifications Patient : No Anesthesia Reactions: No Hx Blood Transfusions: No Blood Transfusion Reaction: No Cephalosporin Allergy: No Previous Colonoscopy: No - Cardiovascular Assessment Heart Sounds: S1 & S2 Pulse Strength: Baseline Pulse Rhythm: Regular Peripheral Edema: No - Airway Assessment C-Spine Mobility Assessed: Yes TMJ Mobility Assessed: Yes Dentition: Edentulous - Neurological Assessment Level of Consciousness: Awake, Alert, Appropriate Hx Seizures: No Numbness or tingling in extremities: No - Anesthesia Plan Anesthesia Risk discussed: Yes Anesthesia Plan: Verified ASA Class: III Anesthesia Type: General [facility] Anesthesia HX I have reviewed the patient's past medical history: Yes Medical History: Reports:: Asthma, Chronic Obstructive Pulmonary Disease (COPD) , Coronary Artery Disease, Diabetes Mellitus Type 2, Gastroesophageal Reflux Disease(GERD), Hyperlipidemia, Hypertension, Myocardial Infarction Denies:: Cancer, Diabetes Mellitus Type 1, MRSA Other Medical History: Reports: Fibromyalgia Laterality Cases: Right: Lumpectomy Other Surgeries: Yes: Appendectomy, CABG, Cardiac Catheterization, Cardiac Surgery, Cholecystectomy, Hysterectomy-Total, Tubal Ligation Amputation: No Fractures: No *Family Hx:: Cancer
--- NOTE | 2018-02-28 13:58 | Operative Note ---
Date of procedure: 02/28/18 Pre-op Diagnosis:: Left axillary abscess Post-op Diagnosis:: Same Procedure performed:: Incision and drainage of left axillary abscess Surgeon:: Armando Gong MD SCIENCE EDITOR:: [employer] Anesthesia: LMA Estimated blood loss (mL): 10 Clinical Note:: Patient is a 67-year-old diabetic female. She has had a "boil" in the left axilla which has progressed over several weeks. She presented to the emergency department in the late evening yesterday and was admitted for inpatient management and surgical consultation for incision and drainage. Operative findings:: Left axillary abscess containing thick foul pus Operative note:: Consent was obtained patient was taken to the operating room. General anesthesia was induced. Left axilla was prepped and draped in the standard surgical fashion. A limited incision was made at the central area of fluctuance. A large amount of thick foul pus which exuded from the wound. This was sent for culture. The wound was probed and did track deeply. The skin overlying the abscess was opened a couple centimeters with electrocautery. Abscess cavity was thoroughly evacuated. It was irrigated with saline. There appeared to be good hemostasis. Local anesthetic was infiltrated into the surrounding tissues. Wound was packed with one-inch plain packing gauze. Clean dry sterile dressing was applied. Condition: stable Disposition: PACU Specimens:: Cultures sent Complications:: None immediately apparent
--- NOTE | 2018-02-28 14:03 | Progress Note ---
[facility] Anesthesia Record Part I Intake, IV Amount: 300 Estimated blood loss (mL): 5 Urine output (mL): 0 Blood Pressure: 156/77 SaO2: 92 Pulse Rate: 82 Respiratory Rate: 16 Temperature: 99.8 F Patient is:: Drowsy, Stable Stable to PACU at:: 14:00
--- NOTE | 2018-02-28 14:04 | Progress Note ---
[facility] Anesthesia Record Part II Discharge Time: 14:30 Destination: 2nd floor PACU nurse assessment reviewed?: Yes Patient Condition:: Good Anesthesia Complications:: None
--- NOTE | 2018-03-01 08:01 | Progress Note ---
Subjective Narrative: Tolerated dressing change. Exam Vital signs and Labs for Last 24 Hours: Temp Pulse Resp BP Pulse Ox 97.5 F L 69 16 109/61 94 L 03/01/18 07:42 03/01/18 07:42 03/01/18 07:42 03/01/18 07:42 03/01/18 07:42 Laboratory Results - last 24 hr 02/28/18 08:05: WBC 14.0 H, RBC 4.32, Hgb 11.8 L, Hct 34.7 L, MCV 80.4 L, MCH 27.2, MCHC 33.8, RDW 14.3, Plt Count 299, MPV 7.7, Neut % (Auto) 74.1, Lymph % ( Auto) 18.4, Sac % (Auto) 4.9, Eos % (Auto) 2.3, Baso % (Auto) 0.3, Neut # (Auto ) 10.3 H, Lymph # (Auto) 2.6, Sac # (Auto) 0.7, Eos # (Auto) 0.3, Baso # (Auto ) 0.0 02/28/18 08:05: Sodium 133 L, Potassium 3.6, Chloride 97 L, Carbon Dioxide 31, Anion Gap 8.6, BUN 26 H, Creatinine 1.09 H, Estimated Creat Clear 44, Estimated GFR 50 L, Est GFR ( Amer) 60, Glucose 266 H, Calcium 9.5 02/28/18 12:04: POC Glucose 264 H 02/28/18 14:18: POC Glucose 234 H 02/28/18 17:17: POC Glucose 245 H 02/28/18 21:48: POC Glucose 420 H* 03/01/18 06:16: POC Glucose 316 H* I & O for Last 24 hours: Intake & Output 02/26/18 02/27/18 02/28/18 03/01/18 11:59 11:59 11:59 11:59 Intake Total 545 / 545 1003 / 1003 Output Total 200 / 200 Balance 545 / 545 803 / 803 Weight 252 lb 1 oz 267 lb Microbiology Reports for the Last 24 Hours: Microbiology 02/28/18 Unknown Axilla,Left Gram Stain - Final - *Routine Skin Exam Comments: Wound clean. Still with a significant amount of cellulitis and induration. Progress Note: A&P (1) Abscess Status: Acute Current Visit: Yes (2) Diabetes mellitus Status: Chronic Current Visit: No (3) Renal insufficiency Status: Acute Current Visit: Yes (4) Obesity Status: Acute Current Visit: Yes Assessment and Plan for All Diagnoses:: Abscess appears drained but still with significant focal soft tissue infection with cellulitis and induration. Patient has PCN allergy. Will add antibiotics for Gram negative coverage cultures pending.
--- NOTE | 2018-03-01 09:16 | Progress Note ---
Internal Medicine - PN: Subj *Date: 03/01/18 *Time: 09:14 Exam Vital signs and Labs for Last 24 Hours: Temp Pulse Resp BP Pulse Ox 97.5 F L 69 16 109/61 94 L 03/01/18 07:42 03/01/18 07:42 03/01/18 07:42 03/01/18 07:42 03/01/18 07:42 Laboratory Results - last 24 hr 02/28/18 12:04: POC Glucose 264 H 02/28/18 14:18: POC Glucose 234 H 02/28/18 17:17: POC Glucose 245 H 02/28/18 21:48: POC Glucose 420 H* 03/01/18 06:16: POC Glucose 316 H* I & O for Last 24 hours: Intake & Output 02/26/18 02/27/18 02/28/18 03/01/18 11:59 11:59 11:59 11:59 Intake Total 545 / 545 1003 / 1003 Output Total 200 / 200 Balance 545 / 545 803 / 803 Weight 252 lb 1 oz 267 lb Microbiology Reports for the Last 24 Hours: Microbiology 02/28/18 Unknown Axilla,Left Gram Stain - Final 02/28/18 Unknown Axilla,Left Abscess Culture - Preliminary Gram Positive Cocci - Constitutional no acute distress - *Routine HEENT Exam Head: Present: normocephalic Eye: Present: PERRL ENT: Present: mucous membranes moist - *Routine Neck Exam Present: full ROM - *Routine Respiratory Exam Present: CTA bilaterally - *Routine Cardiovascular Exam Present: RRR - *Routine Abdominal Exam Present: soft, normoactive bowel sounds - *Routine Extremities Exam Present: full ROM - *Routine Skin Exam Comments: Dressing to left axillary clean dry and intact - *Routine Neurological Exam Present: alert, oriented X3, CN II-XII intact - Routine Psychiatric Exam Present: normal affect, normal thought process - Detailed Skin Exam left arm Type of lesion/wound: Present: abscess Body image: 1 - dressing c/d/i Assessment and Plan (1) Abscess Current visit: Yes Status: Acute Category: Medical Code(s): L02.91 - Cutaneous abscess, unspecified (2) Diabetes mellitus Current visit: No Status: Chronic Qualifiers: Category: Medical Code(s): E11.9 - Type 2 diabetes mellitus without complications (3) Renal insufficiency Current visit: Yes Status: Acute Category: Medical Code(s): N28.9 - Disorder of kidney and ureter, unspecified (4) Obesity Current visit: Yes Status: Acute Qualifiers: Obesity type: unspecified obesity type Obesity classification: adult class 3 (BMI >= 40) Serious obesity comorbidity presence: unspecified whether serious comorbidity present Body mass index: BMI 40.0-44.9 Qualified Code(s) : E66.01 - Morbid (severe) obesity due to excess calories; Z68.41 - Body mass index (BMI) 40.0-44.9, adult Category: Medical Code(s): E66.9 - Obesity, unspecified - Assessment and plan all Dx Assessment and Plan for all problems:: Rounded with Dr. Sheehan all orders per [place]
--- NOTE | 2018-03-01 11:48 | Pharmacy Consult Notes ---
- Pharmacy Consult Date: 03/01/18 Time: 11:47 Referring provider: DR. MONROY Reason for Consult:: VANCOMYCIN DOSING Allergies and ADEs:: Allergies Allergy/AdvReac Type Severity Reaction Status Date / Time Iodinated Contrast Media - Allergy Severe S-DIFF. Verified 02/27/18 21:20 Oral and BREATHING [Iodinated Contrast Media - IV Dye] celecoxib [From CELEBREX] Allergy Unknown SWELLING Verified 02/27/18 21:20 ibuprofen [IBUPROFEN] Allergy Unknown S-BLISTERING Verified 02/27/18 21:20 WELTS meloxicam [MELOXICAM] Allergy Unknown S-BLISTERING Verified 02/27/18 21:20 WELTS Penicillins [PENICILLINS] Allergy Unknown I-HIVES Verified 02/27/18 21:20 rofecoxib [From VIOXX] Allergy Unknown I-HIVES Verified 02/27/18 21:20 Home Medications:: Home Medications Medication Instructions Recorded Confirmed Type hydrocodone 5 mg-acetaminophen 325 1 tab PO TID tab 07/21/17 02/28/18 History mg tablet Budesonide/Formoterol Fumarate 2 puff INHALATION Q12H 09/28/17 02/27/18 History [Symbicort 160-4.5 Mcg Inhaler] Furosemide [Furosemide 40MG tAB] 40 mg PO DAILY 02/27/18 02/27/18 History Potassium Chloride [K-Tab ER 20 20 meq PO BID 02/27/18 02/27/18 History mEq] Amitriptyline HCl [Elavil 25mg 25 mg PO DAILY 02/28/18 02/28/18 History tablet] Baclofen [Lioresal 10mg tablet] 10 mg PO BIDP PRN 02/28/18 02/28/18 History [place]-3 Acid Ethyl Esters [Lovaza] 2 gm PO BID 02/28/18 02/28/18 History Height: 1.65 m Weight: 121.109 kg Laboratory Results:: Laboratory Results - last 24 hr 02/28/18 12:04: POC Glucose 264 H 02/28/18 14:18: POC Glucose 234 H 02/28/18 17:17: POC Glucose 245 H 02/28/18 21:48: POC Glucose 420 H* 03/01/18 06:16: POC Glucose 316 H* Medical History: Reports:: Asthma, Chronic Obstructive Pulmonary Disease (COPD) , Coronary Artery Disease, Diabetes Mellitus Type 2, Gastroesophageal Reflux Disease(GERD), Hyperlipidemia, Hypertension, Myocardial Infarction Denies:: Cancer, Diabetes Mellitus Type 1, MRSA, Seizures Assessment and Plan (1) Abscess Current visit: Yes Status: Acute Category: Medical Code(s): L02.91 - Cutaneous abscess, unspecified (2) Diabetes mellitus Current visit: No Status: Chronic Qualifiers: Category: Medical Code(s): E11.9 - Type 2 diabetes mellitus without complications (3) Renal insufficiency Current visit: Yes Status: Acute Category: Medical Code(s): N28.9 - Disorder of kidney and ureter, unspecified (4) Obesity Current visit: Yes Status: Acute Qualifiers: Obesity type: unspecified obesity type Obesity classification: adult class 3 (BMI >= 40) Serious obesity comorbidity presence: unspecified whether serious comorbidity present Body mass index: BMI 40.0-44.9 Qualified Code(s) : E66.01 - Morbid (severe) obesity due to excess calories; Z68.41 - Body mass index (BMI) 40.0-44.9, adult Category: Medical Code(s): E66.9 - Obesity, unspecified - Assessment and plan all Dx Assessment and Plan for all problems:: BASED ON PATIENT'S FACTORS, RECOMMEND CONTINUING WITH VANCOMYCIN 2250 MG Q24H STARTING AT 2100 TONIGHT. PATIENT RECEIVED VANCOMYCIN 2250 MG X1 DOSE LAST NIGHT. PHARMACY WILL FOLLOW DAILY AND ADJUST APPROPRIATE. PARMJIT GUARDADO, ERASMOD
[2018-03-02 07:45] VITALS: BP 116/55
--- NOTE | 2018-03-02 08:21 | Progress Note ---
Subjective Patient reports: still having pain Narrative: Patient continues to complain of being "sore". Exam Vital signs and Labs for Last 24 Hours: Temp Pulse Resp BP Pulse Ox 98.3 F 77 20 116/55 97 03/02/18 07:42 03/02/18 07:42 03/02/18 07:42 03/02/18 07:42 03/02/18 08:00 Laboratory Results - last 24 hr 03/01/18 11:57: POC Glucose 422 H* 03/01/18 17:31: POC Glucose 361 H* 03/01/18 21:45: POC Glucose 367 H* 03/02/18 06:14: POC Glucose 291 H I & O for Last 24 hours: Intake & Output 02/27/18 02/28/18 03/01/18 03/02/18 11:59 11:59 11:59 11:59 Intake Total 545 / 545 1003 / 1003 817 / 817 Output Total 200 / 200 950 / 950 Balance 545 / 545 803 / 803 -133 / -133 Weight 252 lb 1 oz 267 lb 273 lb 3 oz Microbiology Reports for the Last 24 Hours: Microbiology 02/28/18 Unknown Axilla,Left Gram Stain - Final 02/28/18 Unknown Axilla,Left Abscess Culture - Final Staphylococcus aureus 02/27/18 21:35 Blood Blood Culture - Preliminary NO GROWTH AFTER 48 HOURS 02/27/18 21:35 Blood Blood Culture - Preliminary NO GROWTH AFTER 48 HOURS - *Routine Skin Exam Comments: Much less erythema and induration. Progress Note: A&P (1) Abscess Status: Acute Current Visit: Yes (2) Diabetes mellitus Status: Chronic Current Visit: No (3) Renal insufficiency Status: Acute Current Visit: Yes (4) Obesity Status: Acute Current Visit: Yes Assessment and Plan for All Diagnoses:: Cultures reveal MSSA and Gram Pos diplococci. Pending final cultures may be able to discharge home this afternoon on oral antibiotics with home health for once daily dressing changes.
--- NOTE | 2018-03-02 08:57 | Discharge Summary ---
General - General Admission date:: 03/01/18 Discharge date: 03/02/18 HPI HPI: this wf who is diabetic has progressive swelling and pain lt axilla and was seen in the ed and admitted for iv abx and surg eval- Hospital Course Hospital Course: culture results:staphylococcus aureus- sensitive to bactruim surgery consult: see note I&D of left axillary abscess. Therapy consult We will discharge home with home health for dressing changes. Objective Vital signs: Temp Pulse Resp BP Pulse Ox 98.3 F 77 20 116/55 97 03/02/18 07:42 03/02/18 07:42 03/02/18 07:42 03/02/18 07:42 03/02/18 08:00 no acute distress - *Routine HEENT Exam Head: Present: normocephalic Eye: Present: PERRL ENT: Present: mucous membranes moist - *Routine Neck Exam Present: full ROM - Routine Chest/Breast/Axilla Exam Axillae: Present: tenderness Comments: Dressing clean dry and intact - *Routine Respiratory Exam Present: CTA bilaterally - *Routine Cardiovascular Exam Present: RRR - *Routine Abdominal Exam Present: soft, normoactive bowel sounds - *Routine Extremities Exam Present: full ROM, normal capillary refill - *Routine Neurological Exam Present: alert, CN II-XII intact - Routine Psychiatric Exam Present: normal affect, normal thought process Results Labs on day of discharge: Labs from last 24 hours 03/02/18 03/01/18 03/01/18 06:14 21:45 17:31 POC Glucose 291 H 367 H* 361 H* 03/01/18 11:57 POC Glucose 422 H* Preliminary micro results at discharge 02/27/18 21:35 Blood Culture - Preliminary Blood NO GROWTH AFTER 48 HOURS 02/27/18 21:35 Blood Culture - Preliminary Blood NO GROWTH AFTER 48 HOURS - Additional Comments Rounded with Dr. Sheehan all orders per [place] DS: Diagnosis - Discharge Diagnosis (1) Abscess Status: Acute Problem details: left axillary abscess (2) Diabetes mellitus Status: Chronic Problem details: type 2 non insulin dep (3) Renal insufficiency Status: Acute Problem details: grf 49 stage 3 chronic kidney dz (4) Morbid obesity with BMI of 40.0-44.9, adult Status: Acute Discharge Plan - Patient Discharge Instructions ACTIVITY: Continue current activity DIET: continue same diet - Follow up Plan Follow up with: Hilary Bagley PA [Primary Care Provider] - 03/06/18 Armando Gong MD [Staff Physician] - 1 week Disposition: Home, Self-Nursing Home Medications: Home Medications Medication Instructions Recorded Confirmed Type Budesonide/Formoterol Fumarate 2 puff INHALATION Q12H 09/28/17 02/27/18 History [Symbicort 160-4.5 Mcg Inhaler] Furosemide [Furosemide 40MG tAB] 40 mg PO DAILY 02/27/18 02/27/18 History Potassium Chloride [K-Tab ER 20 20 meq PO BID 02/27/18 02/27/18 History mEq] Amitriptyline HCl [Elavil 25mg 25 mg PO DAILY 02/28/18 02/28/18 History tablet] Baclofen [Lioresal 10mg tablet] 10 mg PO BIDP PRN 02/28/18 02/28/18 History [place]-3 Acid Ethyl Esters [Lovaza] 2 gm PO BID 02/28/18 02/28/18 History Hydrocodone/Acetaminophen 1 each PO TIDP PRN 03/02/18 03/02/18 History [Hydrocodone-Acetamin 5-325 mg] Insulin Detemir [Levemir 80 units SQ BID 03/02/18 03/02/18 History 100units/mL 3mL flexpen] Insulin NPH Hum/Reg Insulin Hm 40 unit SQ TID 03/02/18 03/02/18 History [Humulin 70/30 Kwikpen] Losartan/Hydrochlorothiazide 1 each PO DAILY 03/02/18 03/02/18 History [Losartan-Hctz 100-12.5 mg Tab] Omeprazole [Omeprazole 20mg 20 mg PO DAILY 03/02/18 03/02/18 History Capsule] Rosuvastatin Calcium 20 mg PO HS 03/02/18 03/02/18 History Prescriptions/Medication Reconciliation: Continue bisoprolol fumarate 5 mg tablet 5 mg PO DAILY #90 tab buspirone 5 mg tablet 5 mg PO DAILY #90 tab citalopram 20 mg tablet 20 mg PO DAILY #90 tab clonidine HCl 0.2 mg tablet 0.2 mg PO DAILY #90 tab clopidogrel 75 mg tablet 75 mg PO DAILY #90 tab ergocalciferol (vitamin D2) 50,000 unit capsule 50,000 unit PO QWEEK #90 cap levothyroxine 25 mcg tablet 25 mcg PO QDAY #90 tab metoclopramide 5 mg tablet 5 mg PO BID #180 tab ranitidine 300 mg tablet 300 mg PO BID #180 tab gabapentin 800 mg tablet 800 mg PO QID #120 tab Budesonide/Formoterol Fumarate [Symbicort 160-4.5 Mcg Inhaler] 2 puff INHALATION Q12H Potassium Chloride [K-Tab ER 20 mEq] 20 meq PO BID Furosemide [Furosemide 40MG tAB] 40 mg PO DAILY Amitriptyline HCl [Elavil 25mg tablet] 25 mg PO DAILY Baclofen [Lioresal 10mg tablet] 10 mg PO BIDP PRN PRN Reason: Muscle Spasm [place]-3 Acid Ethyl Esters [Lovaza] 2 gm PO BID Rosuvastatin Calcium 20 mg PO HS Insulin NPH Hum/Reg Insulin Hm [Humulin 70/30 Kwikpen] 40 unit SQ TID Hydrocodone/Acetaminophen [Hydrocodone-Acetamin 5-325 mg] 1 each PO TIDP PRN PRN Reason: pain Losartan/Hydrochlorothiazide [Losartan-Hctz 100-12.5 mg Tab] 1 each PO DAILY Insulin Detemir [Levemir 100units/mL 3mL flexpen] 80 units SQ BID Omeprazole [Omeprazole 20mg Capsule] 20 mg PO DAILY
== END 2018-03-02 12:10 | disposition home health service (06) ==
LOC: ER 21:06 → 2ND 21:06
PROVIDERS: ADMIT Emergency Medicine; ATTEND Emergency Medicine

== ENCOUNTER → 2018-03-06 09:39 | Outpatient (REF) | payer MEDICARE, MEDICAID, SELFPAY ==
[2018-03-06 13:22] LABS: Basophils # 0.1 K/mm3 (0-0.2); Basophils % 0.6 % (0.1-2.0); Eosinophils # 0.3 K/mm3 (0.0-0.4); Eosinophils % 2.6 % (0.1-12.0); Hematocrit 34.9 % (37.0-47.0); Hemoglobin 11.5 g/dL (12.2-16.2); Lymphocytes # 2.4 K/mm3 (0.7-4.5); Lymphocytes % 24.4 K/mm3 (10-50); Mean Corpuscular Volume 81.6 fl (81-99); Mean Platelet Volume 6.9 fl (7.4-10.4); Monocytes # 0.5 K/mm3 (0.1-1.0); Monocytes % 5.1 % (1.7-9.3); Neutrophils # 6.5 K/mm3 (1.8-7.8); Neutrophils % 67.3 % (37.0-80.0); Platelet Count 339 K/mm3 (142-424); Red Blood Count 4.27 M/mm3 (4.20-5.40); Red Cell Distribution Width 14.5 % (11.5-17.5); White Blood Count 9.7 K/mm3 (4.8-10.8)
[2018-03-06 13:56] LABS: Alanine Aminotransferase 34 U/L (12-78); Albumin Level 3.2 gm/dL (3.4-5.0); Albumin/Globulin Ratio 0.7 (1.1-1.8); Alkaline Phosphatase 99 U/L (46-116); Anion Gap 11.4 mEq/L (5-15); Aspartate Amino Transferase 34 U/L (15-37); Bilirubin,Total 0.2 mg/dL (0.2-1.0); Blood Urea Nitrogen 25 mg/dL (7-18); Calcium 9.4 mg/dL (8.5-10.1); Carbon Dioxide 33 mmol/L (21.0-32.0); Chloride 95 mmol/L (98-107); Chol/HDL Ratio 4.3 (1-3.5); Cholesterol 145 mg/dL (140-200); Creatinine,Serum 1.22 mg/dL (0.55-1.02); Estimated Glomerular Filt Rate 44 ml/min (>60); GFR (African American) 53 ML/MIN (>60); Globulin 4.4 gm/dl (1.3-3.2); Glucose 254 mg/dL (74-106); HDL Cholesterol 34 mg/dL (29-89); LDL Cholesterol 52 mg/dL (0-130); Potassium 4.4 mmoL/L (3.5-5.1); Sodium 135 mmol/L (136-145); Total Protein,Serum 7.6 gm/dL (6.4-8.2); Triglycerides 293 mg/dL (30-200); VLDL Cholesterol 59 mg/dL (0-40)
== END ==
LOC: LAB 09:39
PROVIDERS: Visit Provider Physician Assistant
DX: J40 Bronchitis, not specified as acute or chronic (principal); E11.9 Type 2 diabetes mellitus without complications; Z79.4 Long term (current) use of insulin; L02.91 Cutaneous abscess, unspecified
CPT/HCPCS: 80053; 80061; 85025

== ENCOUNTER → 2018-03-22 09:01 | Outpatient (REF) | payer MEDICARE, MEDICAID, SELFPAY ==
[2018-03-22 14:05] LABS: Hemoglobin A1C 10.4 % (0.0-7.0)
== END ==
LOC: LAB.CARL 09:01
PROVIDERS: Visit Provider Emergency Medicine
DX: E11.9 Type 2 diabetes mellitus without complications (principal); E78.5 Hyperlipidemia, unspecified; I10 Essential (primary) hypertension; I25.10 Atherosclerotic heart disease of native coronary artery without angina pectoris
CPT/HCPCS: 83036

== ENCOUNTER → 2018-04-03 12:34 | Outpatient (CLI) | payer MEDICARE, MEDICAID, SELFPAY ==
[2018-04-03 13:45] VITALS: PULSE 57; PULSE 62
[2018-04-03 14:15] VITALS: BP 115/78; BP 130/90; PULSE 56; PULSE 78; RESP 18; RESP 22; O2SAT 93; O2SAT 97
--- NOTE | 2018-04-03 14:27 | CT_ITS ---
CT chest wo con HISTORY: Restrictive lung disease, recent pneumonia ITS.REASON: RESTRICTIVE LUNG DISEASE ORDERING PHYSICIAN: Ronnie Chamorro MD PATIENT AGE: 67 years COMPARISON: 03/06/2015 Technique: Axial images obtained with sagittal and coronal reformats. All CT scans at the facility use one or more dose reduction, viz: automated exposure control, ma/kV adjustment per patient size (including targeted exams where dose is matched to indication, i.e. head), or iterative reconstruction technique. FINDINGS: There is an enlarging right thyroid nodule along the lower pole at 3.5 by 3.1 x 2.5 cm previously 3.4 by 2.7 x 2.2 cm. There are severe coronary artery calcifications. Prior CABG. Normal heart size. Aortic valve calcifications also noted. No mediastinal or hilar mass or adenopathy. Calcified granulomas present in the left lower lobe. Linear density present within the left upper and left lower lobe anteriorly consistent with fibrotic changes similar to the previous exam. The interstitium has an unremarkable appearance. No evidence of bronchiectasis. No suspicious pulmonary nodules. No central obstructing lesions. Upper abdominal images are unremarkable. No acute bony anomalies. IMPRESSION: 1. Overall no significant change from 03/06/2015. No suspicious pulmonary nodules evident. Minimal fibrotic changes are present in the left lung base unchanged. 2. Slight increase in size of right thyroid nodule. Consider ultrasound for further evaluation
== END ==
PROVIDERS: PCP Physician Assistant; Visit Provider Internal Medicine
DX: J98.4 Other disorders of lung (principal); R06.02 Shortness of breath
CPT/HCPCS: 71250; 94060; 94618; 94640; 94727; 94729

== ENCOUNTER → 2018-08-06 13:33 | Outpatient (CLI) | payer MEDICARE, MEDICAID, SELFPAY ==
[2018-08-06 14:33] LABS: Basophils % 0.3 % (0.1-2.0); Eosinophils # 0.1 K/mm3 (0.0-0.4); Eosinophils % 1.6 % (0.1-12.0); Hematocrit 38.7 % (37.0-47.0); Hemoglobin 12.9 g/dL (12.2-16.2); Lymphocytes # 1.9 K/mm3 (0.7-4.5); Lymphocytes % 24.5 % (10-50); Mean Corpuscular HGB Conc 33.2 g/dL (31.8-35.4); Mean Corpuscular Hemoglobin 28.4 pg (27.0-31.2); Mean Corpuscular Volume 85.3 fl (81-99); Mean Platelet Volume 6.8 fl (7.4-10.4); Monocytes # 0.4 K/mm3 (0.1-1.0); Monocytes % 4.7 % (1.7-9.3); Neutrophils # 5.4 K/mm3 (1.8-7.8); Neutrophils % 68.8 % (37.0-80.0); Platelet Count 281 K/mm3 (142-424); Red Blood Count 4.53 M/mm3 (4.20-5.40); Red Cell Distribution Width 15.1 % (11.5-17.5); White Blood Count 7.9 K/mm3 (4.8-10.8)
[2018-08-06 14:44] LABS: Alanine Aminotransferase 31 U/L (12-78); Albumin Level 3.2 gm/dL (3.4-5.0); Albumin/Globulin Ratio 0.8 (1.1-1.8); Alkaline Phosphatase 113 U/L (46-116); Anion Gap 14.3 mEq/L (5-15); Aspartate Amino Transferase 33 U/L (15-37); Bilirubin,Total 0.3 mg/dL (0.2-1.0); Blood Urea Nitrogen 19 mg/dL (7-18); Calcium 9.3 mg/dL (8.5-10.1); Carbon Dioxide 29 mmol/L (21.0-32.0); Chloride 96 mmol/L (98-107); Chol/HDL Ratio 3.7 (1-3.5); Cholesterol 119 mg/dL (140-200); Creatinine,Serum 0.99 mg/dL (0.55-1.02); Estimated Glomerular Filt Rate 56 ml/min (>60); GFR (African American) 67 ML/MIN (>60); Globulin 4.2 gm/dl (1.3-3.2); HDL Cholesterol 32 mg/dL (29-89); LDL Cholesterol 22 mg/dL (0-130); Potassium 4.3 mmoL/L (3.5-5.1); Sodium 135 mmol/L (136-145); T4 (Thyroxine) 8.9 ug/dl (4.7-13.3); Thyroid Stimulating Hormone 4.61 uIU/ml (0.358-3.740); Total Protein,Serum 7.4 gm/dL (6.4-8.2); Triglycerides 324 mg/dL (30-200); VLDL Cholesterol 65 mg/dL (0-40)
[2018-08-06 14:47] LABS: Glucose 411 mg/dL (74-106)
[2018-08-06 15:31] LABS: Hemoglobin A1C 9.5 % (0.0-7.0)
[2018-08-08 13:05] LABS: Vitamin D 25 Hydroxy 30.4 ng/mL (30.0-100.0)
[2018-08-08 13:10] LABS: Microalbumin, Urine 12.7 ug/mL (Not Estab.)
== END ==
PROVIDERS: Visit Provider Physician Assistant
DX: E11.9 Type 2 diabetes mellitus without complications (principal); Z79.4 Long term (current) use of insulin; J40 Bronchitis, not specified as acute or chronic
CPT/HCPCS: 80053; 80061; 82043; 82652; 83036; 84436; 84443; 85025

== ENCOUNTER → 2018-10-02 13:01 | Outpatient (POV) | payer MEDICARE, MEDICAID, SELFPAY | PROVIDERS: Visit Provider Internal Medicine | DX: Z00.00 Encounter for general adult medical examination without abnormal findings (principal) ==

== ENCOUNTER → 2018-10-31 13:54 | Outpatient (CLI) | payer MEDICARE, MEDICAID, SELFPAY ==
[2018-10-31 14:05] LABS: Basophils # 0.1 K/mm3 (0-0.2); Basophils % 0.6 % (0.1-2.0); Eosinophils # 0.1 K/mm3 (0.0-0.4); Eosinophils % 1.3 % (0.1-12.0); Hematocrit 38.5 % (37.0-47.0); Lymphocytes # 2.4 K/mm3 (0.7-4.5); Lymphocytes % 26.3 % (10-50); Mean Corpuscular HGB Conc 33.8 g/dL (31.8-35.4); Mean Corpuscular Hemoglobin 27.9 pg (27.0-31.2); Mean Corpuscular Volume 82.5 fl (81-99); Mean Platelet Volume 7.3 fl (7.4-10.4); Monocytes # 0.3 K/mm3 (0.1-1.0); Monocytes % 3.7 % (1.7-9.3); Neutrophils # 6.1 K/mm3 (1.8-7.8); Neutrophils % 68.1 % (37.0-80.0); Platelet Count 275 K/mm3 (142-424); Red Blood Count 4.66 M/mm3 (4.20-5.40); Red Cell Distribution Width 14.6 % (11.5-17.5); White Blood Count 8.9 K/mm3 (4.8-10.8)
[2018-10-31 14:35] LABS: Hemoglobin A1C 10.1 % (0.0-7.0)
[2018-10-31 14:45] LABS: Alanine Aminotransferase 35 U/L (12-78); Albumin Level 3.2 gm/dL (3.4-5.0); Albumin/Globulin Ratio 0.8 (1.1-1.8); Alkaline Phosphatase 106 U/L (46-116); Amylase 30 U/L (25-115); Anion Gap 12.6 mEq/L (5-15); Aspartate Amino Transferase 34 U/L (15-37); Bilirubin,Total 0.3 mg/dL (0.2-1.0); Blood Urea Nitrogen 25 mg/dL (7-18); Calcium 9.2 mg/dL (8.5-10.1); Carbon Dioxide 32 mmol/L (21.0-32.0); Chloride 98 mmol/L (98-107); Chol/HDL Ratio 4.7 (1-3.5); Cholesterol 147 mg/dL (140-200); Creatinine,Serum 1.01 mg/dL (0.55-1.02); Estimated Glomerular Filt Rate 54 ml/min (>60); GFR (African American) 66 ML/MIN (>60); Glucose 348 mg/dL (74-106); HDL Cholesterol 31 mg/dL (29-89); LDL Cholesterol 45 mg/dL (0-130); Lipase 97 u/L (73-393); Potassium 4.6 mmoL/L (3.5-5.1); Sodium 138 mmol/L (136-145); T4 (Thyroxine) 9.9 ug/dl (4.7-13.3); Thyroid Stimulating Hormone 2.92 uIU/ml (0.358-3.740); Total Protein,Serum 7.2 gm/dL (6.4-8.2); Triglycerides 353 mg/dL (30-200); VLDL Cholesterol 71 mg/dL (0-40)
[2018-11-01 10:03] LABS: Vitamin D 25 Hydroxy 28.2 ng/mL (30.0-100.0)
== END ==
PROVIDERS: Visit Provider Physician Assistant
DX: E11.9 Type 2 diabetes mellitus without complications (principal); Z79.4 Long term (current) use of insulin; J40 Bronchitis, not specified as acute or chronic
CPT/HCPCS: 80053; 80061; 82150; 82652; 83036; 83690; 84436; 84443; 85025

== ENCOUNTER → 2019-04-23 13:55 | Outpatient (POV) | payer MEDICARE, MEDICAID, SELFPAY | PROVIDERS: Visit Provider Internal Medicine | DX: Z00.00 Encounter for general adult medical examination without abnormal findings (principal) ==

== ENCOUNTER → 2019-05-07 14:20 | Outpatient (CLI) | payer MEDICARE, MEDICAID, SELFPAY ==
[2019-05-07 14:47] LABS: Basophils % 0.5 % (0.1-2.0); Eosinophils # 0.4 K/mm3 (0.0-0.4); Eosinophils % 4.4 % (0.1-12.0); Hematocrit 39.3 % (37.0-47.0); Lymphocytes # 2.2 K/mm3 (0.7-4.5); Lymphocytes % 28.4 % (10-50); Mean Corpuscular HGB Conc 30.5 g/dL (31.8-35.4); Mean Corpuscular Hemoglobin 25.9 pg (27.0-31.2); Mean Corpuscular Volume 85.1 fl (81-99); Mean Platelet Volume 7.3 fl (7.4-10.4); Monocytes # 0.5 K/mm3 (0.1-1.0); Monocytes % 6.1 % (1.7-9.3); Neutrophils # 4.7 K/mm3 (1.8-7.8); Neutrophils % 60.6 % (37.0-80.0); Platelet Count 312 K/mm3 (142-424); Red Blood Count 4.61 M/mm3 (4.20-5.40); Red Cell Distribution Width 15.3 % (11.5-17.5); White Blood Count 7.8 K/mm3 (4.8-10.8)
[2019-05-07 15:28] LABS: Alanine Aminotransferase 27 U/L (12-78); Albumin/Globulin Ratio 0.8 (1.1-1.8); Alkaline Phosphatase 104 U/L (46-116); Anion Gap 12.2 mEq/L (5-15); Aspartate Amino Transferase 21 U/L (15-37); Bilirubin,Total 0.2 mg/dL (0.2-1.0); Blood Urea Nitrogen 26 mg/dL (7-18); Calcium 8.8 mg/dL (8.5-10.1); Carbon Dioxide 31 mmol/L (21.0-32.0); Chloride 98 mmol/L (98-107); Chol/HDL Ratio 3.6 (1-3.5); Cholesterol 119 mg/dL (140-200); Creatinine,Serum 0.93 mg/dL (0.55-1.02); Estimated Glomerular Filt Rate 60 ml/min (>60); GFR (African American) 72 ML/MIN (>60); Glucose 325 mg/dL (74-106); HDL Cholesterol 33 mg/dL (29-89); LDL Cholesterol 35 mg/dL (0-130); Potassium 4.2 mmoL/L (3.5-5.1); Sodium 137 mmol/L (136-145); T4 (Thyroxine) 9.6 ug/dl (4.7-13.3); Thyroid Stimulating Hormone 2.11 uIU/ml (0.358-3.740); Triglycerides 255 mg/dL (30-200); VLDL Cholesterol 51 mg/dL (0-40)
[2019-05-09 17:09] LABS: Vitamin D 25 Hydroxy 24.6 ng/mL (30.0-100.0)
== END ==
PROVIDERS: Visit Provider Physician Assistant
DX: E11.9 Type 2 diabetes mellitus without complications (principal); Z79.4 Long term (current) use of insulin; E03.9 Hypothyroidism, unspecified; E78.5 Hyperlipidemia, unspecified; E55.9 Vitamin D deficiency, unspecified
CPT/HCPCS: 80053; 80061; 82652; 83036; 84436; 84443; 85025

== ENCOUNTER → 2019-05-17 07:44 | Outpatient (CLI) | payer MEDICARE, MEDICAID, SELFPAY ==
--- NOTE | 2019-05-17 07:45 | MR_ITS ---
PROCEDURE: MR ABDOMEN WO/W CON CLINICAL INDICATION: Abnormal liver CT MRI findings with fatty fissure MRI findings with fatty liver infiltration MRI findings of focal fatty infiltration of the liver COMPARISON: CXR2V XR chest 2V from 09/18/2018 CT ABDOMEN PELVIS WO CON from 04/09/2019 TECHNIQUE: Routine multiplanar multi echo sequences are obtained without and with contrast. In and out of phase imaging performed of the liver. FINDINGS: There are heterogeneous areas of decreased decreased T1 and T2 signal within the right hepatic lobe as described on the CT scan most prominent in the inferior aspect of the right hepatic lobe. These areas show decreased signal intensity on the out of phase images consistent with focal fatty liver infiltration. There is some mild enhancement of the right hepatic lobe laterally. This however is in areas of fatty infiltration. This is of questionable clinical significance. The left adrenal gland is enlarged with signal dropout consistent with adenomatous involvement. IMPRESSION: Heterogeneous signal intensity involves the right lobe of the liver as described on the CT scan is consistent with focal fatty infiltration. There is some mild enhancement at the area of fatty infiltration therefore, short-term 3 month follow-up is suggested which can be performed with CT. The Dictated by: Tru Peres MD 05/18/2019 11:54 Electronically signed by Tru Peres MD in [place] 05/22/2019 11:09
== END ==
PROVIDERS: PCP Physician Assistant; Visit Provider Physician Assistant
DX: R93.2 Abnormal findings on diagnostic imaging of liver and biliary tract (principal)
CPT/HCPCS: 74183; A9576

== ENCOUNTER → 2019-09-04 13:21 | Outpatient (CLI) | payer MEDICARE, MEDICAID, SELFPAY ==
[2019-09-04 13:36] LABS: Basophils # 0.1 K/mm3 (0-0.2); Basophils % 0.6 % (0.1-2.0); Eosinophils # 0.2 K/mm3 (0.0-0.4); Eosinophils % 2.3 % (0.1-12.0); Hematocrit 39.7 % (37.0-47.0); Hemoglobin 12.8 g/dL (12.2-16.2); Lymphocytes # 3.3 K/mm3 (0.7-4.5); Lymphocytes % 34.8 % (10-50); Mean Corpuscular HGB Conc 32.1 g/dL (31.8-35.4); Mean Corpuscular Hemoglobin 26.8 pg (27.0-31.2); Mean Corpuscular Volume 83.4 fl (81-99); Mean Platelet Volume 7.7 fl (7.4-10.4); Monocytes # 0.5 K/mm3 (0.1-1.0); Monocytes % 5.6 % (1.7-9.3); Neutrophils # 5.4 K/mm3 (1.8-7.8); Neutrophils % 56.8 % (37.0-80.0); Platelet Count 349 K/mm3 (142-424); Red Blood Count 4.76 M/mm3 (4.20-5.40); Red Cell Distribution Width 14.5 % (11.5-17.5); White Blood Count 9.5 K/mm3 (4.8-10.8)
[2019-09-04 13:55] LABS: Alanine Aminotransferase 25 U/L (9-52); Albumin Level 3.3 g/dL (3.4-5.0); Albumin/Globulin Ratio 0.8 (1.1-1.8); Alkaline Phosphatase 101 U/L (46-116); Anion Gap 11.1 mEq/L (5-15); Aspartate Amino Transferase 23 U/L (15-37); Bilirubin,Total 0.4 mg/dL (0.2-1.0); Blood Urea Nitrogen 28 mg/dL (7-18); Calcium 9.2 mg/dL (8.5-10.1); Carbon Dioxide 33 mmol/L (21.0-32.0); Chloride 102 mmol/L (98-107); Chol/HDL Ratio 3.7 (1-3.5); Cholesterol 130 mg/dL (140-200); Creatinine,Serum 0.96 mg/dL (0.55-1.02); Estimated Glomerular Filt Rate 57 ml/min (>60); GFR (African American) 70 ML/MIN (>60); Glucose 212 mg/dL (74-106); HDL Cholesterol 35 mg/dL (29-89); LDL Cholesterol 50 mg/dL (0-130); Potassium 4.1 mmoL/L (3.5-5.1); Sodium 142 mmol/L (137-145); T4 (Thyroxine) 7.5 ug/dl (4.7-13.3); Thyroid Stimulating Hormone 3.46 uIU/ml (0.358-3.740); Total Protein,Serum 7.3 g/dL (6.4-8.2); Triglycerides 223 mg/dL (30-200); VLDL Cholesterol 45 mg/dL (0-40)
[2019-09-04 14:21] LABS: Hemoglobin A1C 9.5 % (0.0-7.0)
[2019-09-05 10:29] LABS: Vitamin D 25 Hydroxy 32.9 ng/mL (30.0-100.0)
[2019-09-05 14:37] LABS: Microalbumin, Urine 9.8 ug/mL (Not Estab.)
== END ==
PROVIDERS: Visit Provider Physician Assistant
DX: E11.9 Type 2 diabetes mellitus without complications (principal); Z79.4 Long term (current) use of insulin; E78.5 Hyperlipidemia, unspecified; E55.9 Vitamin D deficiency, unspecified
CPT/HCPCS: 80053; 80061; 82043; 82652; 83036; 84436; 84443; 85025

== ENCOUNTER → 2019-11-27 15:12 | Outpatient (CLI) | payer MEDICARE, MEDICAID, SELFPAY ==
[2019-11-27 15:43] LABS: Chloride 98 mmol/L (98-107)
[2019-11-27 15:44] LABS: Potassium 4.3 mmoL/L (3.5-5.1); Sodium 136 mmol/L (136-145)
[2019-11-27 15:46] LABS: Alanine Aminotransferase 25 U/L (12-78); Alkaline Phosphatase 87 U/L (38-126); Anion Gap 11.3 mEq/L (5-15); Aspartate Amino Transferase 37 U/L (14-36); Bilirubin,Total 0.3 mg/dl (0.2-1.3); Blood Urea Nitrogen 19 mg/dl (7-17); Carbon Dioxide 31 mmol/L (22.0-30.0); Cholesterol 121 mg/dl (140-200); Estimated Glomerular Filt Rate 83 ml/min (>60); GFR (African American) 100 ML/MIN (>60); Triglycerides 210 mg/dl (30-150); VLDL Cholesterol 42 mg/dL (0-40)
[2019-11-27 15:47] LABS: Albumin Level 3.6 g/dl (3.5-5.0); Albumin/Globulin Ratio 1.1 (1.1-1.8); Calcium 9.8 mg/dl (8.4-10.2); Chol/HDL Ratio 3.3 (1-3.5); Globulin 3.2 g/dL (1.3-3.2); Glucose 132 mg/dl (74-100); HDL Cholesterol 37 mg/dl (40-60); Total Protein,Serum 6.8 g/dl (6.3-8.2)
[2019-11-27 15:51] LABS: Basophils % 0.5 % (0.1-2.0); Eosinophils # 0.2 K/mm3 (0.0-0.4); Hematocrit 38.3 % (37.0-47.0); Hemoglobin 12.2 g/dL (12.2-16.2); Lymphocytes # 2.5 K/mm3 (0.7-4.5); Lymphocytes % 26.7 % (10-50); Mean Corpuscular HGB Conc 31.9 g/dL (31.8-35.4); Mean Corpuscular Hemoglobin 26.8 pg (27.0-31.2); Mean Platelet Volume 7.4 fl (7.4-10.4); Monocytes # 0.5 K/mm3 (0.1-1.0); Monocytes % 5.4 % (1.7-9.3); Neutrophils # 6.1 K/mm3 (1.8-7.8); Neutrophils % 65.5 % (37.0-80.0); Platelet Count 271 K/mm3 (142-424); Red Blood Count 4.56 M/mm3 (4.20-5.40); White Blood Count 9.3 K/mm3 (4.8-10.8)
[2019-11-27 15:59] LABS: Direct LDL Cholesterol 61.73 mg/dL (100-129)
[2019-11-27 16:05] LABS: T4 (Thyroxine) 9.9 ug/dl (5.53-11.0)
[2019-11-27 16:18] LABS: Thyroid Stimulating Hormone 1.94 uIU/mL (0.465-4.68)
[2019-11-27 20:45] LABS: Hemoglobin A1C 7.4 % (4.0-6.0)
[2019-11-29 11:20] LABS: Vitamin D 25 Hydroxy 33.6 ng/mL (30.0-100.0)
== END ==
PROVIDERS: Visit Provider Physician Assistant
DX: E11.9 Type 2 diabetes mellitus without complications (principal); Z79.4 Long term (current) use of insulin; E03.9 Hypothyroidism, unspecified; E78.5 Hyperlipidemia, unspecified; E55.9 Vitamin D deficiency, unspecified
CPT/HCPCS: 80053; 80061; 82652; 83036; 84436; 84443; 85025

== ENCOUNTER 2019-11-30 19:19 | Emergency (ER) | payer MEDICARE, MEDICAID, SELFPAY ==
[2019-11-30 19:36] VITALS: BP 122/60; PULSE 62; RESP 17; TEMP 36.8; O2SAT 99; BMI 43.4
--- NOTE | 2019-11-30 19:40 | XR_ITS ---
PROCEDURE: XR CHEST PORTABLE CLINICAL HISTORY: chest pain COMPARISON: CXR1VP XR chest portable from 11/10/[address] chest wo con from 04/03/2018 CXR2V XR chest 2V from 09/18/2018 XR CHEST 2V from 04/09/2019 FINDINGS: The patient is markedly obese. This is a fairly good inspiration and the lung torres are grossly clear of infiltrate. There is more mild to moderate generalized cardiomegaly however the vascularity is normal and there is no definite pleural fluid. There are sternal wire sutures noted. There degenerative changes of both shoulders more prominent right side than left. IMPRESSION: Mild to moderate generalized cardiomegaly, no acute chest pathology noted Dictated by: Dr. Charbel Larios MD 11/30/2019 20:[address] Charbel Larios MD in [place] 11/30/2019 20:25
--- NOTE | 2019-11-30 19:40 | CT_ITS ---
PROCEDURE: CT LUMBAR SPINE WO CON CLINICAL HISTORY: left hip pain left leg pain n COMPARISON: No exams were available for comparison TECHNIQUE: Axial images obtained with sagittal and coronal reformats. All CT scans at the facility use one or more dose reduction, viz: automated exposure control, ma/kV adjustment per patient size (including targeted exams where dose is matched to indication, i.e. head), or iterative reconstruction technique. FINDINGS: There is mild diffuse levo scoliotic curvature the lumbar spine. There is generalized osteopenia. There is no evidence of recent or old compression fracture. The L1-2 and L2-3 disc appear grossly normal except for minimal calcification in the L2-3 disc posteriorly. There is a small vacuum phenomenon of the L3-4 disc. There are mild hypertrophic facet changes at the L3-4 level. There is a slightly larger vacuum phenomenon of the L4-5 disc. There is a small left paracentral and foraminal disc protrusion combined with hypertrophic facet changes at this level results and mild neural foraminal narrowing bilaterally but more prominent left side than right. There is mild diffuse bulging of the annulus fibrosus at the L5-S1 level with partial calcification of the annulus posteriorly. There are mild hypertrophic facet changes at this level as well. The SI joints appear normal. There is diffuse arthrosclerotic calcification of the abdominal aorta but there is no aneurysm. IMPRESSION: Generalized osteopenia with vacuum phenomenon at the L 3 4 and L4-5 levels, moderate diffuse left paracentral and foraminal disc protrusion L4-5, prominent hypertrophic facet changes at the L3-4 and L4-5 levels and mild hypertrophic facet changes at L5-S1. Dictated by: Dr. Charbel Larios MD 11/30/2019 20:[address] Charbel Larios MD in [place] 11/30/2019 20:23
--- NOTE | 2019-11-30 19:42 | HMH.EDGENADL ---
ED Disposition Condition on Discharge: Good - Critical Care Critical Care Time: No <Po Bear - Last Filed: 11/30/19 19:42> <DashawnelianCole - Last Filed: 12/01/19 06:58> Clinical Impression: Sciatica associated with disorder of lumbar spine, Acute exacerbation of chronic low back pain, Atypical chest pain, Lumbar disc disease, Hyperglycemia Disposition: Home, Self-Care Instructions: DI for Low Back Pain, DI for Sciatica, DI for Atypical Chest Pain, DI for Hyperglycemia -- Adult Additional Instructions: Follow-up with your primary care doctor for your back pain and your elevated blood sugar. Call Monday for appointment. Continue your pain medication for back pain and rest. Additional instructions for BACK PAIN: See your physician as soon as possible for further evaluation. Return immediately if back pain becomes intolerable, or if fever, numbness or weakness of your legs, loss of control of your bowels or bladder. Referrals: Hilary Bagley PA [Primary Care Provider] - Attestation: On 11/30/19, the high probability of a clinically significant, sudden or life threatening deterioration of the following system(s) required my full and direct attention, intervention and personal management. The time I documented below is in addition to time spent performing reported procedures but includes the following listed in this critical care notation. Medical Decision Making - Medical Records Medical records reviewed: Yes: I reviewed the patient's medical records. - Sam Rudd Pt receiving controlled substance: No - Lab Data Lab results reviewed: Yes: I reviewed the patient's lab results. - ECG Data Tracing #1 I reviewed this ECG and interpreted as documented below: Normal Sinus Rhythm: Yes <Po Bear - Last Filed: 11/30/19 19:42> - Sam Vargas was queried for this patient: Yes Reference #:: [id number] Comment: 25 rxs. last rx 90 norco on 11/22/19 - Lab Data Result diagrams: 11/30/19 19:40 11/30/19 19:40 - Radiology Data #1 Image(s): Chest Image Reviewed: Yes I reviewed the patient's radiology image, Yes I have reviewed radiologist's interpretation - CT Data CT Scan: L-Spine Time Received: 20:[address] Reviewed: Yes: I have viewed the radiologist's interpretation - ECG Data Tracing #1 I reviewed this ECG and interpreted as documented below: - Reevaluation(s) Time: 20:40 <Cole Streeter - Last Filed: 12/01/19 06:58> Vital Signs: 11/30/19 19:36 11/30/19 20:23 11/30/19 20:53 Temperature 98.3 F 98.3 F Temperature Source Oral Oral Pulse Rate 60 Pulse Rate [Right Brachial] 62 71 Respiratory Rate 17 17 Blood Pressure 131/52 L Blood Pressure [Right Arm] 122/60 144/61 H Blood Pressure Mean [Right Arm] 80 88 Blood Pressure Source Automatic Cuff Blood Pressure Source [Right Arm] Automatic Cuff Blood Pressure Position Sitting Blood Pressure Position [Right Arm] Sitting 02 Sat by Pulse Oximetry 99 100 Oxygen Delivery Method Room Air Nasal Cannula Nasal Cannula Oxygen Flow Rate (LPM) 2 2 - Lab Data Lab Results 11/30/19 19:40: WBC 9.9, RBC 4.32, Hgb 11.5 L, Hct 34.8 L, MCV 80.6 L, MCH 26.6 L, MCHC 32.9, RDW 15.3, Plt Count 263, MPV 7.1 L, Neut % (Auto) 71.2, Lymph % (Auto) 21.6, [place] % (Auto) 5.4, Eos % (Auto) 1.6, Baso % (Auto) 0.2, Neut # (Auto) 7.0, Lymph # (Auto) 2.1, [place] # (Auto) 0.5, Eos # (Auto) 0.2, Baso # (Auto) 0.0 11/30/19 19:40: Sodium 133 L, Potassium 4.1, Chloride 94 L, Carbon Dioxide 32 H, Anion Gap 11.1, BUN 18 H, Creatinine 0.70, Estimated Creat Clear 47, Estimated GFR 83, Est GFR ( Amer) 100, Glucose 344 H, Calcium 9.5, Troponin I < 0.01 - Radiology Data #1 PROCEDURE: XR CHEST PORTABLE CLINICAL HISTORY: chest pain COMPARISON: CXR1VP XR chest portable from 11/10/[address] chest wo con from 04/03/2018 CXR2V XR chest 2V from 09/18/2018 XR CHEST 2V from 04/09/2019 FINDINGS: The
--- NOTE | 2019-11-30 19:46 | ECG_ITS ---
APPROVED REPORT Exam: Resting ECG HR:66 bpm ECG Measurements Heart Rate 66 AXES AL 194 P 4 QRSd 90 QRS 11 QT 418 T 70 QTc 438 <Conclusion> Normal sinus rhythm Incomplete RBBB Otherwise a Normal ECG Electronically signed by : Todd Wade, 12/01/2019 13:19:54
[2019-11-30 19:57] LABS: Basophils % 0.2 % (0.1-2.0); Eosinophils # 0.2 K/mm3 (0.0-0.4); Eosinophils % 1.6 % (0.1-12.0); Hematocrit 34.8 % (37.0-47.0); Hemoglobin 11.5 g/dL (12.2-16.2); Lymphocytes # 2.1 K/mm3 (0.7-4.5); Lymphocytes % 21.6 % (10-50); Mean Corpuscular HGB Conc 32.9 g/dL (31.8-35.4); Mean Corpuscular Hemoglobin 26.6 pg (27.0-31.2); Mean Corpuscular Volume 80.6 fl (81-99); Mean Platelet Volume 7.1 fl (7.4-10.4); Monocytes # 0.5 K/mm3 (0.1-1.0); Monocytes % 5.4 % (1.7-9.3); Neutrophils % 71.2 % (37.0-80.0); Platelet Count 263 K/mm3 (142-424); Red Blood Count 4.32 M/mm3 (4.20-5.40); Red Cell Distribution Width 15.3 % (11.5-17.5); White Blood Count 9.9 K/mm3 (4.8-10.8)
[2019-11-30 19:59] LABS: Anion Gap 11.1 mEq/L (5-15); Blood Urea Nitrogen 18 mg/dl (7-17); Calcium 9.5 mg/dl (8.4-10.2); Carbon Dioxide 32 mmol/L (22.0-30.0); Chloride 94 mmol/L (98-107); Creatinine Clearance Estimated 47 mL/min (50-200); Estimated Glomerular Filt Rate 83 ml/min (>60); GFR (African American) 100 ML/MIN (>60); Glucose 344 mg/dl (74-100); Potassium 4.1 mmoL/L (3.5-5.1); Sodium 133 mmol/L (136-145)
[2019-11-30 20:13] LABS: Troponin I < 0.01 ng/ml (0.00-0.034)
[2019-11-30 20:23] VITALS: BP 144/61; PULSE 71; O2SAT 100
[2019-11-30 20:53] VITALS: BP 131/52; PULSE 60; RESP 17; TEMP 36.8; O2SAT 99
== END 2019-11-30 20:56 | disposition home or self-care (01) ==
PROVIDERS: Family Medicine; Emergency Provider Emergency Medicine; PCP Physician Assistant
DX: M53.86 Other specified dorsopathies, lumbar region (principal); X50.0XXA Overexertion from strenuous movement or load, initial encounter; Y92.019 Unspecified place in single-family (private) house as the place of occurrence of the external cause; R07.89 Other chest pain; I10 Essential (primary) hypertension; E78.5 Hyperlipidemia, unspecified; I25.2 Old myocardial infarction; E11.9 Type 2 diabetes mellitus without complications; K21.9 Gastro-esophageal reflux disease without esophagitis; I25.10 Atherosclerotic heart disease of native coronary artery without angina pectoris; Z87.891 Personal history of nicotine dependence; Z88.0 Allergy status to penicillin; Z79.899 Other long term (current) drug therapy; Z90.49 Acquired absence of other specified parts of digestive tract; Z90.79 Acquired absence of other genital organ(s); Z95.1 Presence of aortocoronary bypass graft
CPT/HCPCS: 71045; 72131; 80048; 84484; 85025; 93005; 99284

== ENCOUNTER 2019-12-17 14:00 | Outpatient (RCR) | payer MEDICARE, MEDICAID, SELFPAY ==
--- NOTE | 2019-12-04 15:59 | HMH.PTOPEV ---
PT Outpatient Evaluation Rehab PT Outpatient Evaluation Start: 12/04/19 15:21 Freq: Status: Active Protocol: Document 12/04/19 15:21 ANJELICA (Rec: 12/04/19 15:59 PDESEROUX [id number]) Electronically Signed By Eric Yusuf, PT 12/04/19 15:21 Outpatient Therapy Subjective History Subjective History Pt. is a 69 year old female who presents to outpatient PT clinic with complaints of acute and constant L-sided LB and LLE P! of traumatic onset 1 wk. ago. Pt. reports turning the corner to her bathroom at home and felt a pop in her L knee that shot up to her L hip. Recent diagnostic imaging posivite for bulging discs per pt. report. Pt. denies having injections for current pathology. Pt. RTMD in 3 months. Current medication list includes Hydrocod [place], Amitriptyline HCL, Meclizine, Rosuvastatin, Ranitidine, Potassium Chloride, Omeprazole , Metoclopramide, Losartan, Levothyroxine, Gabapentin, Furosemide, Ergocalciferol, Vitamin D, Clopidogrel Bisulfate, Clonidine, Citalopram Hydrobromide, Buspirone HCL, Symbicort, Bisoprolol Fumarate, Levemir, Novolog, [place] 3, and Baclofen . PMH includes Type II Diabetes, Atrial flutter, CABG , Lumpectomy, complete Hysterectomy, Cholecystectomy, and Vasculitis. Chief Complaint Pain,Weakness Symptom Type Ache,Sharp,Dull,Shooting Symptoms Relieved By Rest/Positioning,Prescription Meds Symptoms Aggravated By Bending/Stooping,Twisting, Walking,Lifting Prior Functional Limitations None Current Functional Limitations Lifting,Housework,Standing, Walking,Balance,Bending/ Stooping Symptom Description Constant and Continuous Level of pain today (0-10) 6 Pain scale - at its best (0-10) 10 Pain scale - at its w
== END 2020-01-14 09:00 | disposition home or self-care (01) ==
LOC: PT.CARL 14:00
PROVIDERS: PCP Physician Assistant; Visit Provider Physician Assistant
DX: M45.4 Ankylosing spondylitis of thoracic region (principal)
CPT/HCPCS: 97110; 97140; 97163

== ENCOUNTER → 2020-02-27 17:05 | Outpatient (CLI) | payer MEDICARE, MEDICAID, SELFPAY | PROVIDERS: Visit Provider Nurse Practitioner Family | DX: N39.0 Urinary tract infection, site not specified (principal) | CPT/HCPCS: 87086; 87088; 87186 ==

== ENCOUNTER → 2020-03-13 14:30 | Outpatient (CLI) | payer MEDICARE, MEDICAID, SELFPAY ==
[2020-03-13 14:33] LABS: Adenovirus F 40/41, stool Not Detected (NotDetected); Astrovirus Not Detected (NotDetected); Campylobacter Not Detected (NotDetected); Clostridium Difficile A/B, PCR Not Detected (NotDetected); Cryptosporidium Not Detected (NotDetected); Cyclospora Cayetanesis Not Detected (NotDetected); Entamoeba histolytica Not Detected (NotDetected); Enteroaggregative E coli Not Detected (NotDetected); Enteropathogenic E coli Not Detected (NotDetected); Enterotoxigenic E coli Not Detected (NotDetected); Giardia lamblia Not Detected (NotDetected); Norovirus Not Detected (NotDetected); Plesimonas Shigalloides, PCR Not Detected (NotDetected); Rotavirus A Not Detected (NotDetected); Salmonella, PCR Not Detected (NotDetected); Sapovirus Not Detected (NotDetected); Shiga-like toxin E coli Not Detected (NotDetected); Shigella Enterovasive E coli Not Detected (NotDetected); Vibrio Cholerae Not Detected (NotDetected); Vibrio, PCR Not Detected (NotDetected); Yersinia Entercolitica, PCR Not Detected (NotDetected)
[2020-03-13 14:56] LABS: Occult Blood,Stool Positive (Negative)
== END ==
PROVIDERS: Visit Provider Physician Assistant
DX: K92.1 Melena (principal); R19.7 Diarrhea, unspecified
CPT/HCPCS: 82272; 87506; G0328

== ENCOUNTER 2020-04-04 20:35 | Emergency (ER) | payer MEDICARE, MEDICAID, SELFPAY ==
[2020-04-04 20:55] VITALS: BP 124/60; PULSE 72; RESP 18; TEMP 36.9; O2SAT 92; BMI 42.4
[2020-04-04 21:06] VITALS: BP 154/83; PULSE 69; RESP 16; TEMP 37.2; O2SAT 95; BMI 42.4
--- NOTE | 2020-04-04 21:07 | HMH.EDUTC ---
[facility] Disposition Clinical Impression: Fatigue Qualifiers: Fatigue type: unspecified Qualified Code(s): R53.83 - Other fatigue CAD (coronary artery disease) Qualifiers: Coronary Disease-Associated Artery/Lesion type: unspecified vessel or lesion type [place] vs. transplanted heart: [place] heart Associated angina: without angina Qualified Code(s): I25.10 - Atherosclerotic heart disease of [place] coronary artery without angina pectoris Diarrhea Qualifiers: Diarrhea type: unspecified type Qualified Code(s): R19.7 - Diarrhea, unspecified Disposition: Still a Patient Condition on Discharge: Fair Additional Instructions: Transferred to ER for further evaluation Referrals: Hilary Bagley PA [Primary Care Provider] - Time of Disposition: 21:49 Medical Decision Making - Medical Records Medical records reviewed: No: I reviewed the patient's medical records. - Sam Inquiry Pt receiving controlled substance: No Vital Signs: 04/04/20 20:55 04/04/20 21:06 Temperature 98.5 F 98.9 F Temperature Source Oral Oral Pulse Rate [Left Brachial] 72 69 Respiratory Rate 18 16 Blood Pressure [Left Arm] 124/60 154/83 H Blood Pressure Mean [Left Arm] 81 106 Blood Pressure Source [Left Arm] Automatic Cuff Automatic Cuff Blood Pressure Position [Left Arm] Sitting Sitting 02 Sat by Pulse Oximetry 92 L 95 Oxygen Delivery Method Nasal Cannula Room Air Oxygen Flow Rate (LPM) 2 - Lab Data Lab Results 04/04/20 21:18: POC Glucose 180 H Medical Decision Narrative: I sent her to the ER due to her c/o fatigue and weakness and her heart history. In my opinion, she needs labs and cardiac workup. [facility] HPI - General Stated complaint: tired diarrhea Time Seen by Provider: 04/04/20 21:07 Mode of Arrival: Ambulatory Limitations: No Limitations Description of Symptoms (Recalled from Triage Doc. by RN): Patient reports that she is tired and has diarrhea for a week but reports that not out of the ordinary for her because she has chronic IBS. - History of Present Illness Provider Complaint: She c/o black tarry stools for the past several days. She also c/o weakness and fatigue. She has a history of diabetes and CAD. She has had CABG in the past. She denies any chest pain at this time. She does c/o shortness of breath that is slightly worse than her normal shortness of breath. - Related Data Home Medications Medication Instructions Recorded Confirmed Hydrocodone/Acetaminophen 1 each PO TIDP PRN 03/02/18 02/27/20 [Hydrocodone-Acetamin 5-325 mg] aspirin 81 mg tablet,delayed 81 mg PO DAILY 09/04/19 02/27/20 release Blood Sugar Diagnostic [Advanced 0 1000units .ROUTE .MEDSUPPLY 11/30/19 02/27/20 Gluc Meter Test Strip] Blood Sugar Diagnostic [Truetrack 0 1000units .ROUTE .MEDSUPPLY 11/30/19 02/27/20 Test] Blood-Glucose Meter [Blood Glucose 0 1000units .ROUTE .MEDSUPPLY 11/30/19 02/27/20 Meter] Dulaglutide [Trulicity] 0.75 mg SQ QWEEK 11/30/19 02/27/20 Ergocalciferol (Vitamin D2) See Rx Instructions .ROUTE .COMPLEX 11/30/19 02/27/20 [Vitamin D2] Icosapent Ethyl [Vascepa] See Rx Instructions .ROUTE .COMPLEX 11/30/19 02/27/20 Omeprazole [Omeprazole 20mg 20 mg PO DAILY 11/30/19 02/27/20 Capsule] Pen Needle, Diabetic [Techlite Pen 0 % .ROUTE .MEDSULY 11/30/19 02/27/20 Needle] raNITIdine HCL [Ranitidine HCl] See Rx Instructions .ROUTE .COMPLEX 11/30/19 02/27/20 Previous Rx's Medication Instructions Recorded budesonide-formoterol HFA 160 2 puff INHALATION Q12H #10.2 g 08/06/18 mcg-4.5 mcg/actuation aerosol inhaler Loperamide HCl [Imodium 2 mg 2 mg PO Q4H PRN #40 cap 04/09/19 capsule] Ondansetron [Zofran 4mg ODT] 4 mg PO Q6H PRN 10 Days #40 04/09/19 tab.rapdis amitriptyline 25 mg tablet 25 mg PO DAILY #90 tab 12/02/19 insulin syringe-needle U-100 0.3 See Rx Instructions .ROUTE 12/02/19 mL 31 gauge x 5/16 .MEDSUPPLY #100 each meclizine 25 mg tablet See Rx Instructions .ROUTE 11/21
[2020-04-04 21:25] LABS: POC Glucose,Bedside 180 (70-110)
--- NOTE | 2020-04-04 21:44 | PC.NURSE ---
PATIENT SENT TO ER PER JAVI PLAZA APRN FOR FURTHER EVALUATION. PATIENT C/O BLACK STOOLS WITH A HISTORY OF GI BLEED
--- NOTE | 2020-04-04 21:53 | HMH.EDGENADL ---
ED Disposition Clinical Impression: Fatigue Qualifiers: Fatigue type: unspecified Qualified Code(s): R53.83 - Other fatigue Diarrhea Qualifiers: Diarrhea type: unspecified type Qualified Code(s): R19.7 - Diarrhea, unspecified Disposition: Home, Self-Care Condition on Discharge: Good Additional Instructions: Levaquin as prescribed. See Hilary in the office this coming week, call Monday to make appointment. Prescriptions: levoFLOXacin [Levaquin 500mg tab] 500 mg PO DAILY #7 tab Prescription Printed Referrals: Hilary Bagley PA [Primary Care Provider] - - Critical Care Critical Care Time: No Attestation: On 04/04/20, the high probability of a clinically significant, sudden or life threatening deterioration of the following system(s) required my full and direct attention, intervention and personal management. The time I documented below is in addition to time spent performing reported procedures but includes the following listed in this critical care notation. Medical Decision Making - Sam Inquiry Pt receiving controlled substance: No Vital Signs: 04/04/20 20:55 04/04/20 21:06 04/04/20 21:58 Temperature 98.5 F 98.9 F 98.5 F Temperature Source Oral Oral Oral Pulse Rate [Left Brachial] 72 69 68 Respiratory Rate 18 16 18 Blood Pressure [Left Arm] 124/60 154/83 H 161/76 H Blood Pressure Mean [Left Arm] 81 106 104 Blood Pressure Source [Left Arm] Automatic Cuff Automatic Cuff Automatic Cuff Blood Pressure Position [Left Arm] Sitting Sitting 02 Sat by Pulse Oximetry 92 L 95 98 Oxygen Delivery Method Nasal Cannula Room Air Nasal Cannula Oxygen Flow Rate (LPM) 2 2 04/04/20 22:38 04/05/20 00:39 Temperature Temperature Source Pulse Rate [Left Brachial] 69 72 Respiratory Rate 18 Blood Pressure [Left Arm] 158/77 H 149/46 H Blood Pressure Mean [Left Arm] 104 80 Blood Pressure Source [Left Arm] Automatic Cuff Blood Pressure Position [Left Arm] Sitting 02 Sat by Pulse Oximetry 99 99 Oxygen Delivery Method Room Air Oxygen Flow Rate (LPM) - Lab Data Lab Results 04/04/20 21:18: POC Glucose 180 H 04/04/20 22:10: WBC 10.7, RBC 4.80, Hgb 13.3, Hct 38.1, MCV 79.4 L, MCH 27.7, MCHC 34.9, RDW 15.0, Plt Count 273, MPV 7.2 L, Neut % (Auto) 62.0, Lymph % (Auto) 29.6, [place] % (Auto) 5.4, Eos % (Auto) 2.4, Baso % (Auto) 0.6, Neut # (Auto) 6.6, Lymph # (Auto) 3.2, [place] # (Auto) 0.6, Eos # (Auto) 0.3, Baso # (Auto) 0.1 04/04/20 22:10: Sodium 140, Potassium 4.1, Chloride 95 L, Carbon Dioxide 33 H, Anion Gap 16.1 H, BUN 20 H, Creatinine 0.80, Estimated Creat Clear 47, Estimated GFR 71, Est GFR ( Amer) 86, Glucose 174 H, Calcium 9.9, Total Bilirubin 0.4, AST 37 H, ALT 27, Alkaline Phosphatase 104, Troponin I < 0.01, Total Protein 8.1, Albumin 4.3, Globulin 3.8 H, Albumin/Globulin Ratio 1.1 04/04/20 22:10: SARS-CoV-2 IgG Ab (Rapid) Negative, SARS-CoV-2 IgM Ab (Rapid) Negative 04/04/20 22:35: Urine Color Yellow, Urine Appearance Clear, Urine pH 5.0, Ur Specific [place] 1.020, Urine Protein Negative, Urine Glucose (UA) Negative, Urine Ketones Negative, Urine Blood Negative, Urine Nitrate Negative, Urine Bilirubin Negative, Urine Urobilinogen 0.2, Ur Leukocyte Esterase 1+ A, Urine WBC 10-20, Ur Squamous Epith Cells 10-20, Amorphous Sediment Trace 04/04/20 23:00: Stool Occult Blood Negative Result diagrams: 04/04/20 22:10 04/04/20 22:10 Orders (Tests/Meds): ED MEDICATIONS Generic Name Dose Route Start Last Admin Trade Name Freq PRN Reason Stop Dose Admin Levofloxacin/Dextrose 500 mg in 100 mls @ 100 mls/hr 04/04/20 23:00 04/04/20 23:10 Levaquin 500mg/100ml Premix IV 04/18/20 22:59 100 mls/hr Q24H BRYCE Administration Protocol ORDERS Category Date Time Status Chest XR 2 view (NOT portable) [XR chest 2V] Stat Exams 04/04/20 22:04 Taken Covid-19 IgG/IgM ([facility]) Stat Lab 04/05/20 01:26 Received Troponin I Q3H Lab 04/05/20 01:15 Received Troponin I Q3H Lab 04/05/20 04:15
[2020-04-04 21:58] VITALS: BP 161/76; PULSE 68; RESP 18; TEMP 36.9; O2SAT 98; BMI 42.4
--- NOTE | 2020-04-04 22:04 | XR_ITS ---
PROCEDURE: XR CHEST 2V CLINICAL HISTORY: fatigue COMPARISON: CT CHESTWO CT chest wo con from 04/03/2018 CR CXR2V XR chest 2V from 09/18/2018 CR XR CHEST 2V from 04/09/2019 CR XR CHEST PORTABLE from 11/30/2019 FINDINGS: This is a somewhat poor inspiratory effort. The patient is very large. There is mild chronic elevation left hemidiaphragm. The lung torres are grossly clear of infiltrate. There is borderline cardiomegaly with mild vascular congestion. Sternal wire sutures and surgical clips are seen from previous CABG. There is mild kyphotic curvature of the thoracic spine with mild multilevel degenerate changes. IMPRESSION: Borderline cardiomegaly, findings suggesting possibly early congestive failure and suggest clinical correlation Dictated by: Dr. Charbel Larios MD 04/05/2020 08:40 Dr. Charbel Larios MD in [place] 04/05/2020 08:40
[2020-04-04 22:25] LABS: Basophils # 0.1 K/mm3 (0-0.2); Basophils % 0.6 % (0.1-2.0); Eosinophils # 0.3 K/mm3 (0.0-0.4); Eosinophils % 2.4 % (0.1-12.0); Hematocrit 38.1 % (37.0-47.0); Hemoglobin 13.3 g/dL (12.2-16.2); Lymphocytes # 3.2 K/mm3 (0.7-4.5); Lymphocytes % 29.6 % (10-50); Mean Corpuscular HGB Conc 34.9 g/dL (31.8-35.4); Mean Corpuscular Hemoglobin 27.7 pg (27.0-31.2); Mean Corpuscular Volume 79.4 fl (81-99); Mean Platelet Volume 7.2 fl (7.4-10.4); Monocytes # 0.6 K/mm3 (0.1-1.0); Monocytes % 5.4 % (1.7-9.3); Neutrophils # 6.6 K/mm3 (1.8-7.8); Platelet Count 273 K/mm3 (142-424); White Blood Count 10.7 K/mm3 (4.8-10.8)
[2020-04-04 22:31] LABS: Alanine Aminotransferase 27 U/L (12-78); Albumin Level 4.3 g/dl (3.5-5.0); Albumin/Globulin Ratio 1.1 (1.1-1.8); Alkaline Phosphatase 104 U/L (38-126); Anion Gap 16.1 mEq/L (5-15); Aspartate Amino Transferase 37 U/L (14-36); Bilirubin,Total 0.4 mg/dl (0.2-1.3); Blood Urea Nitrogen 20 mg/dl (7-17); Calcium 9.9 mg/dl (8.4-10.2); Carbon Dioxide 33 mmol/L (22.0-30.0); Chloride 95 mmol/L (98-107); Creatinine Clearance Estimated 47 mL/min (50-200); Estimated Glomerular Filt Rate 71 ml/min (>60); GFR (African American) 86 ML/MIN (>60); Globulin 3.8 g/dL (1.3-3.2); Glucose 174 mg/dl (74-100); Potassium 4.1 mmoL/L (3.5-5.1); Sodium 140 mmol/L (136-145); Total Protein,Serum 8.1 g/dl (6.3-8.2)
[2020-04-04 22:38] VITALS: BP 158/77; PULSE 69; RESP 18; O2SAT 99
[2020-04-04 22:39] LABS: Microscopic, Urine URINE MICROSCOPIC (MICROSCOPIC)
[2020-04-04 22:41] LABS: Appearance,Urine CLEAR (Clear); Bilirubin,Urine Negative (Negative); Blood, Urine Negative (Negative); Color,Urine YELLOW (Yellow); Glucose,Urine (UA) Negative (Negative); Ketones,Urine Negative (Negative); Leukocyte Esterase,Urine 1+ (Negative); Nitrate,Urine Negative (Negative); Protein,Urine Negative (Negative); Urobilinogen,Urine 0.2 EU/dl (0.2)
[2020-04-04 22:46] LABS: Troponin I < 0.01 ng/ml (0.00-0.034)
[2020-04-04 22:47] LABS: Amorphous Sediment,Urine Trace /lpf
[2020-04-04 22:47] LABS: Coronavirus 19 IgG Antibody Negative (Negative); Coronavirus 19 IgM Antibody Negative (Negative)
[2020-04-04 23:36] LABS: Occult Blood,Stool Negative (Negative)
[2020-04-05 00:39] VITALS: BP 149/46; PULSE 72; O2SAT 99
[2020-04-05 01:45] LABS: Troponin I < 0.01 ng/ml (0.00-0.034)
[2020-04-05 01:59] VITALS: BP 149/66; PULSE 72; RESP 17; TEMP 36.9; O2SAT 100
== END 2020-04-05 02:09 | disposition home or self-care (01) ==
LOC: UTC 20:54 → ER 21:43
PROVIDERS: Emergency Medicine; Emergency Provider Nurse Practitioner Family; PCP Physician Assistant
DX: R53.83 Other fatigue (principal); I25.10 Atherosclerotic heart disease of native coronary artery without angina pectoris; K58.0 Irritable bowel syndrome with diarrhea; E11.9 Type 2 diabetes mellitus without complications; Z95.1 Presence of aortocoronary bypass graft; M79.7 Fibromyalgia; I10 Essential (primary) hypertension; E78.5 Hyperlipidemia, unspecified; K21.9 Gastro-esophageal reflux disease without esophagitis; J44.9 Chronic obstructive pulmonary disease, unspecified; I25.2 Old myocardial infarction; Z20.828 Contact with and (suspected) exposure to other viral communicable diseases; F41.8 Other specified anxiety disorders; Z87.891 Personal history of nicotine dependence; Z79.899 Other long term (current) drug therapy; Z90.49 Acquired absence of other specified parts of digestive tract; Z90.710 Acquired absence of both cervix and uterus; Z88.0 Allergy status to penicillin; Z88.8 Allergy status to other drugs, medicaments and biological substances
CPT/HCPCS: 71046; 80053; 81001; 82272; 82962; 84484; 85025; 86328; 87086; 96365; 99284; G0328; J1956

== ENCOUNTER 2020-08-10 21:02 | Inpatient (IN) | payer MEDICARE, MEDICAID, SELFPAY ==
[2020-08-10 21:04] VITALS: BP 187/79; PULSE 74; RESP 24; TEMP 37.3; O2SAT 98; BMI 41.5
--- NOTE | 2020-08-10 21:21 | XR_ITS ---
PROCEDURE: XR CHEST PORTABLE CLINICAL HISTORY: soa Shortness of air chest pain COMPARISON: CR XR CHEST 2V from 04/09/2019 CR XR CHEST PORTABLE from 11/30/2019 CR XR CHEST 2V from 04/04/[address] ANGIO CHEST from 08/10/2020 FINDINGS: Prior CABG. Mild cardiomegaly without failure. There is hypoventilation. No lobar consolidation or collapse. The left hemidiaphragm is slightly elevated unchanged. No acute bony abnormalities. IMPRESSION: As above, no change with no acute finding. Dictated by: Tru Peres MD 08/11/2020 05:12 Tru Peres MD in [place] 08/11/2020 05:12
--- NOTE | 2020-08-10 21:21 | ECG_ITS ---
APPROVED REPORT Exam: Resting ECG HR:66 bpm ECG Measurements Heart Rate 66 AXES WA 176 P QRSd 86 QRS -1 QT 408 T 70 QTc 427 Conclusion Normal sinus rhythm Normal ECG Electronically signed by : Andrade Pack, 08/11/2020 21:00:45
[2020-08-10 21:29] LABS: Adenovirus,PCR Not Detected (NotDetected); Bordetella Pertussis Not Detected (NotDetected); Chlamydophila Pneumoniae, PCR Not Detected (NotDetected); Coronavirus 229E Not Detected (NotDetected); Coronavirus NL63 Not Detected (NotDetected); Coronavirus OC43 Not Detected (NotDetected); Coronovirus HKU1,PCR Not Detected (NotDetected); Human Metapneumovirus Not Detected (NotDetected); Influenza A, PCR Not Detected (NotDetected); Influenza AH1, 2009 Not Detected (NotDetected); Influenza AH1, PCR Not Detected (NotDetected); Influenza AH3,PCR Not Detected (NotDetected); Influenza B, PCR Not Detected (NotDetected); Mycoplasma Pneumoniae, PCR Not Detected (NotDetected); Parainfluenza 1, PCR Not Detected (NotDetected); Parainfluenza 2, PCR Not Detected (NotDetected); Parainfluenza 3, PCR Not Detected (NotDetected); Parainfluenza 4, PCR Not Detected (NotDetected); Respiratory Syncytial Virus Not Detected (NotDetected); Rhinovirus/Enterovirus Not Detected (NotDetected)
[2020-08-10 21:35] LABS: Basophils % 0.6 % (0.1-2.0); Eosinophils # 0.1 K/mm3 (0.0-0.4); Eosinophils % 1.7 % (0.1-12.0); Hemoglobin 13.7 g/dL (12.2-16.2); Lymphocytes # 1.7 K/mm3 (0.7-4.5); Lymphocytes % 24.3 % (10-50); Mean Corpuscular HGB Conc 33.3 g/dL (31.8-35.4); Mean Corpuscular Hemoglobin 27.8 pg (27.0-31.2); Mean Corpuscular Volume 83.2 fl (81-99); Mean Platelet Volume 8.1 fl (7.4-10.4); Monocytes # 0.4 K/mm3 (0.1-1.0); Monocytes % 5.4 % (1.7-9.3); Neutrophils # 4.8 K/mm3 (1.8-7.8); Neutrophils % 68.1 % (37.0-80.0); Platelet Count 215 K/mm3 (142-424); Red Blood Count 4.93 M/mm3 (4.20-5.40); Red Cell Distribution Width 15.9 % (11.5-17.5)
[2020-08-10 21:39] LABS: Alanine Aminotransferase 31 U/L (12-78); Alkaline Phosphatase 118 U/L (38-126); Amylase 51 U/L (30-110); Anion Gap 10.4 mEq/L (5-15); Aspartate Amino Transferase 37 U/L (14-36); Bilirubin,Total 0.4 mg/dl (0.2-1.3); Blood Urea Nitrogen 27 mg/dl (7-17); Calcium 9.4 mg/dl (8.4-10.2); Carbon Dioxide 34 mmol/L (22.0-30.0); Chloride 93 mmol/L (98-107); Creatinine Clearance Estimated 46 mL/min (50-200); Estimated Glomerular Filt Rate 62 ml/min (>60); GFR (African American) 75 ML/MIN (>60); Glucose 380 mg/dl (74-100); Lipase 67 U/L (23-300); Potassium 4.4 mmoL/L (3.5-5.1); Sodium 133 mmol/L (136-145)
--- NOTE | 2020-08-10 21:41 | HMH.EDSOB ---
ED Disposition Clinical Impression: COVID-19 virus detected, Dyspnea due to COVID-19, IDDM (insulin dependent diabetes mellitus) Obesity Qualifiers: Obesity type: due to excess calories Obesity classification: adult class 3 (BMI >= 40) Serious obesity comorbidity presence: with serious comorbidity Body mass index: BMI 40.0-44.9 Qualified Code(s): E66.01 - Morbid (severe) obesity due to excess calories; Z68.41 - Body mass index [BMI]40.0-44.9, adult Hypothyroidism Qualifiers: Hypothyroidism type: acquired Qualified Code(s): E03.9 - Hypothyroidism, unspecified Disposition: Admitted As Inpatient Condition on Discharge: Serious - Critical Care Critical Care Time: No Attestation: On 08/10/20, the high probability of a clinically significant, sudden or life threatening deterioration of the following system(s) required my full and direct attention, intervention and personal management. The time I documented below is in addition to time spent performing reported procedures but includes the following listed in this critical care notation. Medical Decision Making - Medical Records Medical records reviewed: Yes: I reviewed the patient's medical records. - Sam Inquiry Pt receiving controlled substance: No Vital Signs: 08/10/20 21:04 08/10/20 21:50 08/10/20 22:03 Temperature 99.1 F Temperature Source Oral Pulse Rate [Right] 74 95 H 66 Respiratory Rate 24 26 H Blood Pressure [Left Arm] 187/79 H 144/66 H 128/59 L Blood Pressure Mean [Left Arm] 115 92 82 Blood Pressure Source [Left Arm] Automatic Cuff Blood Pressure Position [Left Arm] Supine 02 Sat by Pulse Oximetry 98 99 99 Oxygen Delivery Method Nasal Cannula Nasal Cannula Nasal Cannula Oxygen Flow Rate (LPM) 2 2 2 08/10/20 22:50 08/10/20 23:00 08/10/20 23:30 Temperature Temperature Source Pulse Rate [Right] 66 65 66 Respiratory Rate Blood Pressure [Left Arm] 142/61 H 142/61 H 136/64 Blood Pressure Mean [Left Arm] 88 88 88 Blood Pressure Source [Left Arm] Blood Pressure Position [Left Arm] 02 Sat by Pulse Oximetry 97 97 93 L Oxygen Delivery Method Room Air Nasal Cannula Nasal Cannula Oxygen Flow Rate (LPM) 2 2 2 08/11/20 00:00 08/11/20 00:30 Temperature Temperature Source Pulse Rate [Right] 67 71 Respiratory Rate Blood Pressure [Left Arm] 134/57 L 134/75 Blood Pressure Mean [Left Arm] 82 94 Blood Pressure Source [Left Arm] Blood Pressure Position [Left Arm] 02 Sat by Pulse Oximetry 95 93 L Oxygen Delivery Method Nasal Cannula Nasal Cannula Oxygen Flow Rate (LPM) 2 2 - Lab Data Lab results reviewed: Yes: I reviewed the patient's lab results. Lab Results 08/10/20 21:05: Chlamy pneumoniae PCR Not detected, Adenovirus (PCR) Not detected, B. pertussis DNA (PCR) Not detected, Coronavirus OC43 (PCR) Not detected, Coronavirus HKU1 (PCR) Not detected, Coronavirus 229E (PCR) Not detected, SARS-CoV-2 (PCR) Detected A, Coronavirus NL63 (PCR) Not detected, Human Metapneumovir PCR Not detected, Influenza A (H1) PCR Not detected, Influ A (H1N1/09) PCR Not detected, Influenza A (H3) PCR Not detected, Influenza Type A (PCR) Not detected, Influenza Type B (PCR) Not detected, M. pneumoniae (PCR) Not detected, Parainfluenza 1 (PCR) Not detected, Parainfluenza 2 (PCR) Not detected, Parainfluenza 3 (PCR) Not detected, Parainfluenza 4 (PCR) Not detected, RSV (PCR) Not detected, Entero/Rhino (PCR) Not detected 08/10/20 21:05: WBC 7.0, RBC 4.93, Hgb 13.7, Hct 41.0, MCV 83.2, MCH 27.8, MCHC 33.3, RDW 15.9, Plt Count 215, MPV 8.1, Neut % (Auto) 68.1, Lymph % (Auto) 24.3, [place] % (Auto) 5.4, Eos % (Auto) 1.7, Baso % (Auto) 0.6, Neut # (Auto) 4.8, Lymph # (Auto) 1.7, [place] # (Auto) 0.4, Eos # (Auto) 0.1, Baso # (Auto) 0.0, ESR 84 H 08/10/20 21:05: Sodium 133 L, Potassium 4.4, Chloride 93 L, Carbon Dioxide 34 H, Anion Gap 10.4, BUN 27 H, Creatinine 0.90, Estimated Creat Clear 46, Estimated GFR 62, Est GFR ( Amer) 75, Glucose 380 H, Calcium 9.4, Tot
[2020-08-10 21:50] VITALS: BP 144/66; PULSE 95; RESP 26; O2SAT 99
[2020-08-10 21:53] LABS: NT Pro Brain Natriuretic Pep. 132 pg/mL (0-125); Troponin I 0.03 ng/ml (0.00-0.034)
[2020-08-10 21:58] LABS: Procalcitonin 0.112 ng/mL (0.0-2.0)
[2020-08-10 21:59] LABS: Coronavirus 19 IgG Antibody Negative (Negative); Coronavirus 19 IgM Antibody Negative (Negative)
[2020-08-10 22:03] VITALS: BP 128/59; PULSE 66; O2SAT 99
[2020-08-10 22:09] LABS: Erythrocyte Sedimentation Rate 84 mm/hr (0-30)
--- NOTE | 2020-08-10 22:12 | CT_ITS ---
PROCEDURE: CT ANGIO CHEST CLINCIAL INDICATION: Rule out PE Chest pain and shortness of breath COMPARISON: CT CHESTWO CT chest wo con from 04/03/2018 TECHNIQUE: IV Contrast: 70ML Isovue 370 Axial images obtained with sagittal and coronal reformats. All CT scans at the facility use one or more dose reduction, viz: automated exposure control, ma/kV adjustment per patient size (including targeted exams where dose is matched to indication, i.e. head), or iterative reconstruction technique. FINDINGS: HEART AND MEDIASTINAL STRUCTURES: 2.5 cm right thyroid nodule slightly smaller previously measuring 3.1 cm. The trachea is slightly deviated toward the left. No evidence of pulmonary embolus, aortic aneurysm, or aortic dissection. There are mildly prominent mediastinal and hilar lymph nodes. Prior CABG with coronary artery calcifications and/or stents noted. LUNGS AND PLEURAL SPACES: There are bilateral small patchy areas of infiltrate. There are low lung volumes. Peripheral consolidation/atelectatic change is present in the right lung base posteriorly no effusions. BONY STRUCTURES: No acute bony abnormalities apparent. UPPER ABDOMEN: Nodularity noted in the left adrenal gland unchanged. ADDITIONAL FINDINGS: No other significant abnormalities. IMPRESSION: 1. No evidence of pulmonary embolus. 2. Right thyroid nodule which may be slightly smaller. 3. Scattered small areas of patchy infiltrate/atelectatic change. Some of these have a somewhat ground-glass attenuation. Covid19/atypical pneumonia is a consideration. Dictated by: Tru Peres MD 08/11/2020 06:09 Tru Peres MD in [place] 08/11/2020 06:09
[2020-08-10 22:50] VITALS: BP 142/61; PULSE 66; O2SAT 97
[2020-08-10 23:00] VITALS: BP 142/61; PULSE 65; O2SAT 97
[2020-08-10 23:30] VITALS: BP 136/64; PULSE 66; O2SAT 93
[2020-08-10 23:35] LABS: Coronavirus 19, PCR Detected (NotDetected)
[2020-08-11] VITALS (12 sets, daily range): BP systolic 111–158; BP diastolic 56–88; PULSE 64–81; RESP 19–24; TEMP 36.7–37.7; O2SAT 89–97; BMI 45.8
[2020-08-11 00:01] LABS: ABG Base Excess 2.2 mmol/L (-2.4-2.3); ABG HCO3 27.6 mmhg (22.0-26.0); ABG Oxygen Saturation 97 % (90-100); ABG PCO2 49.4 mmhg (35.0-45.0); ABG PH 7.37 mmol/L (7.35-7.45); ABG PO2 87.6 mmhg (80-100); ABG TCO2 29.1 mmhg (23-27)
[2020-08-11 00:02] LABS: Allen's Test Acceptable; Oxygen 2L NC %; Source Right Radial
[2020-08-11 02:00] LABS: Troponin I 0.04 ng/ml (0.00-0.034)
--- NOTE | 2020-08-11 02:40 | PC.NURSE ---
patient up to floor via stretcher.
[2020-08-11 04:00] LABS: Troponin I 0.04 ng/ml (0.00-0.034)
[2020-08-11 06:37] LABS: Basophils % 0.4 % (0.1-2.0); Hematocrit 39.1 % (37.0-47.0); Hemoglobin 12.7 g/dL (12.2-16.2); Lymphocytes # 0.6 K/mm3 (0.7-4.5); Lymphocytes % 10.8 % (10-50); Mean Corpuscular HGB Conc 32.3 g/dL (31.8-35.4); Mean Corpuscular Volume 83.4 fl (81-99); Mean Platelet Volume 8.2 fl (7.4-10.4); Monocytes # 0.2 K/mm3 (0.1-1.0); Monocytes % 3.8 % (1.7-9.3); Neutrophils # 4.9 K/mm3 (1.8-7.8); Platelet Count 201 K/mm3 (142-424); Red Blood Count 4.69 M/mm3 (4.20-5.40); Red Cell Distribution Width 15.9 % (11.5-17.5); White Blood Count 5.8 K/mm3 (4.8-10.8)
[2020-08-11 06:44] LABS: Anion Gap 11.1 mEq/L (5-15); Blood Urea Nitrogen 26 mg/dl (7-17); Calcium 9.2 mg/dl (8.4-10.2); Carbon Dioxide 32 mmol/L (22.0-30.0); Chloride 96 mmol/L (98-107); Creatinine Clearance Estimated 46 mL/min (50-200); Estimated Glomerular Filt Rate 71 ml/min (>60); GFR (African American) 86 ML/MIN (>60); Magnesium 1.7 mg/dl (1.6-2.3); Potassium 5.1 mmoL/L (3.5-5.1); Sodium 134 mmol/L (136-145)
[2020-08-11 06:53] LABS: Glucose 442 mg/dl (74-100)
[2020-08-11 07:00] LABS: MANUAL DIFFERENTIAL MANUAL DIFFERENTIAL (MANUAL DIFF)
--- NOTE | 2020-08-11 07:26 | P.CONPHA_ITS ---
[facility] Pharmacy VTE Monitoring - Patient Demographics Admission date: 08/10/20 Report Date: 08/11/20 Time: 07:26 Allergies/Adverse Reactions: Patient Allergies Iodinated Contrast Media [Iodinated Contrast Media - IV Dye] Allergy (Severe, Verified 07/22/20 09:42) S-DIFF. BREATHING celecoxib [From CELEBREX] Allergy (Unknown, Verified 07/22/20 09:42) SWELLING ibuprofen [IBUPROFEN] Allergy (Unknown, Verified 07/22/20 09:42) S-BLISTERING WELTS meloxicam [MELOXICAM] Allergy (Unknown, Verified 07/22/20 09:42) S-BLISTERING WELTS Penicillins [PENICILLINS] Allergy (Unknown, Verified 07/22/20 09:42) I-HIVES rofecoxib [From VIOXX] Allergy (Unknown, Verified 07/22/20 09:42) I-HIVES Height: 1.65 m Weight: 124.795 kg Patient Problems: Current Active Problems COVID-19 virus detected (Acute) Dyspnea due to COVID-19 (Acute) Obesity (Acute) IDDM (insulin dependent diabetes mellitus) (Chronic) Hypothyroidism (Chronic) - VTE Risk Labs: VTE Related Lab Results Hgb 12.7 g/dL (12.2-16.2) 08/11/20 06:15 Hct 39.1 % (37.0-47.0) 08/11/20 06:15 Plt Count 201 K/mm3 (142-424) 08/11/20 06:15 BUN 26 mg/dl (7-17) H 08/11/20 06:15 Creatinine 0.80 mg/dl (0.52-1.04) 08/11/20 06:15 Estimated Creat Clear 46 mL/min (50-200) 08/11/20 06:15 VTE Score: 5 VTE Risk Level: Low Risk - Prophylaxis VTE Prophylaxis Ordered?: Yes Types of VTE Prophylaxis: TEDS Knee High, Pharmacological Location of Applied Device: Bilateral Lower Extremeties Pharmacologic Type: Enoxaparin
--- NOTE | 2020-08-11 08:00 | CA_ITS ---
APPROVED REPORT EXAM: Comprehensive 2D, Doppler, and color-flow Echocardiogram C Web Developer: Heena Interiano CRT Ht: 5 ft 5 in Wt: 250lbs BSA: 2.17 BP: 134/75 mmHg Indications: Covid pneumonia, old [place], CABG, GERD Echo Enhancing Agent Comments: Limited images due to COVID Pneumonia, Pt skin breakdown beneath left breast- Patient refused additional imaging 2D Dimensions LVOT 1.89 cm (M/F) 1.5-2.5 M-Mode Dimensions RVDd 3.80 cm (0.9-2.6) LA Diam 4.54 cm (1.9-4.0) LVDd 4.25 cm (3.5-5.7) Ao Diam 4.38 cm (2.0-3.7) LVDs 2.92 cm (3.5-5.7) IVSd 1.29 cm (0.6-1.1) PWd 1.37 cm (0.6-1.1) EF (Teich) 59.40% FS 31.30% EDV (Teich) 80.80 mL ESV (Teich) 32.80 mL LV Diastology E Decel Time 250.00 (160-240 msec) E/A Ratio 0.79 MED E' 6.40 (< 7 cm/sec) MED A' 15.40 cm/s E'/MED E' Ratio 15.52 (>14) LAT E' 5.70 (<10 cm/sec) LAT A' 14.90 cm/s E/LAT E' Ratio 17.42 (>14) Aortic Valve LVOT Max 149.00 (70-110 cm/s) LVOT VTI 28.93 cm AoV Peak Navdeep. 207.00 (50-130 cm/s) AO Peak GR. 17.20 mmHg AO Mean GR. 7.90 (<5 mmHg) AO VTI 36.90 (18-25 cm) JOSH (VTI) 2.20 (2.5-4.5 cm2) Mitral Valve MV A Velocity 126.00 (40-130 cm/s) E/A Ratio 0.79 MV Decel. Time 250.00 (160-240 ms) Pulmonary Valve PV Peak Velocity 54.00 (50-150 cm/s) Tricuspid Valve TR P. Velocity 315.00 cm/s RAP Estimate 10.00 mmHg RVSP 49.80 mmHg Left Ventricle Technically very difficult and poor study because of the patient factors and poor acoustic windows. Left atrium is mildly enlarged, left ventricle is normal size, mild concentric left ventricular hypertrophy, visually estimated ejection fraction 50% with no obvious regional wall motion abnormality, endocardial surfaces are very poorly visualized. Diastolic parameters are inconclusive. Right Ventricle Right atrium and right ventricle are mildly enlarged with normal contractility. Aortic Valve Aortic valve is thickened and calcified, morphologically there is moderate aortic stenosis, aortic Doppler is inadequate for calculation of the aortic valve area. There is no significant aortic insufficiency seen. Mitral Valve Mitral valve leaflets are minimally thickened, there is no mitral stenosis, there is mild mitral regurgitation. Tricuspid Valve Tricuspid valve grossly normal, there is mild tricuspid regurgitation calculated right ventricular systolic pressure is 49 mmHg. Pulmonic Valve Pulmonic valve is poorly visualized. Great Vessels Aortic root is normal size. Pericardium No significant pericardial effusion noted. Conclusion 1. Biatrial enlargement, normal left ventricular size, mild concentric left ventricular hypertrophy, visually estimated ejection fraction 50% with no regional wall motion abnormality, endocardial surfaces are very poorly visualized. Diastolic parameters are inconclusive. 2. Thickened and calcified aortic valve morphologically there is moderate aortic stenosis, aortic Doppler is insufficient for calculation of the aortic valve area. 3. Mild mitral and tricuspid regurgitation. Calculated right ventricular systolic pressure 49 mmHg. 4. Right ventricle is mildly enlarged with normal contractility. 5. No significant pericardial effusion noted. Electronically signed by : Sabino Mckinney, 08/11/2020 20:59:10
[2020-08-11 09:00] LABS: Lymphocytes % 8 % (10-50); Monocytes % 5 % (2-9); Neutrophils % 87 % (42-76); Total Cells Counted 100
[2020-08-11 09:01] LABS: Hypochromasia 1+; Microcytosis 1+
[2020-08-11 09:02] LABS: Platelet Estimate Normal
--- NOTE | 2020-08-11 10:34 | HMH.PHAINT ---
home medication list confirmed using list from home pharmacy and dr corona
--- NOTE | 2020-08-11 11:05 | HMH.PULMCON ---
*Admission Date: 08/10/20 *Reason for consult:: COVID-19 pneumonia *History of present illness: Ms. Cade is a 70-year-old female history of COPD on budesonide inhaler, hypothyroidism on levothyroxine, diabetes on insulin therapy presented to the hospital with worsening shortness of breath, not associated with any cough or productive phlegm. Patient along with this also complains of generalized weakness [facility] History Medical History: Reports:: Asthma, Congestive Heart Failure, Chronic Obstructive Pulmonary Disease (COPD), Coronary Artery Disease, Diabetes Mellitus Type 2, Gastroesophageal Reflux Disease(GERD), Home Oxygen, Hyperlipidemia, Hypertension, Myocardial Infarction Denies:: Cancer, Diabetes Mellitus Type 1, Internal Pacemaker, MRSA, Seizures *Have you ever received a pneumonia vaccine?: Yes *Have you received a flu vaccine this season?: Yes Other Medical History: Reports: Arthritis, Fibromyalgia. Denies: Blood Transfusion Reaction Laterality Cases: Right: Lumpectomy Other Surgeries: Yes: Appendectomy, CABG, Cardiac Catheterization, Cardiac Surgery, Cholecystectomy, Hysterectomy-Total, Tubal Ligation, Other. No: Pacemaker Amputation: No Fractures: No - *Social History Last grade of school completed: 7th or 8th Smoking Status: Former smoker # Packs/Day (cigarettes): 1 Alcohol Intake: never Substance Use Type: denies use *Occupational Status:: disabled Housing: house Household Members: family *Travel in the last 8 weeks: None Family Hx:: Cancer ROS - Cons Reports body ache(s), Reports chills - Card Reports shortness of breath, Reports shortness of breath with activity, Reports leg swelling - Resp Respiratory: Reports shortness of breath, Reports chest congestion, Reports cough, Denies non-productive cough, Reports dyspnea, Reports dyspnea on exertion, Denies excessive phlegm production, Denies coughing up blood, Denies pain on inspiration, Denies pain with cough Meds Home Medications Medication Instructions Recorded Confirmed Type Hydrocodone/Acetaminophen 1 each PO TIDP PRN 03/02/18 08/11/20 History [Hydrocodone-Acetamin 5-325 mg] insulin detemir U-100 100 unit/mL 80 unit SQ BID #15 ml 04/21/20 08/11/20 Rx (3 mL) subcutaneous pen gabapentin 800 mg tablet 800 mg PO QID 30 Days #120 tab 05/25/20 08/11/20 Rx Albuterol Sulfate [Proventil Hfa] 2 puffs INHALATION Q6 08/11/20 08/11/20 History Amitriptyline HCl [Elavil 25mg 25 mg PO HS 08/11/20 08/11/20 History tablet] Baclofen [Lioresal 10mg tablet] 10 mg PO BIDP PRN 08/11/20 08/11/20 History Budesonide/Formoterol Fumarate 2 puff INHALATION BID 08/11/20 08/11/20 History [Budesonide-Formoterol 160-4.5] Buspirone HCl [Buspar 5mg tablet] 5 mg PO HS 08/11/20 08/11/20 History Cholecalciferol (Vitamin D3) 1,000 unit PO DAILY 08/11/20 08/11/20 History [Vitamin D3 1,000 Unit Cap] Citalopram Hydrobromide [Celexa] 40 mg PO DAILY 08/11/20 08/11/20 History Clopidogrel Bisulfate [Plavix] 75 mg PO DAILY 08/11/20 08/11/20 History Dulaglutide [Trulicity] 0.75 mg SQ WEEKLY 08/11/20 08/11/20 History Ergocalciferol (Vitamin D2) 50,000 units PO WEEKLY 08/11/20 08/11/20 History [Drisdol] Furosemide [Furosemide 40MG tAB*] 40 mg PO DAILY 08/11/20 08/11/20 History Insulin Aspart Prot/Insuln Asp 84 units SQ TIDWM 08/11/20 08/11/20 History [Novolog Mix 70/30 Flexpen 100 Units/mL 3mL] Levothyroxine Sodium [Synthroid 50 mcg PO DAILY 08/11/20 08/11/20 History 50mcg (0.05mg) tab] Losartan/Hydrochlorothiazide 1 tab PO DAILY 08/11/20 08/11/20 History [Losartan-Hctz 100-12.5 mg Tab] Meclizine HCl [Wal-Dram 2] 25 mg PO TIDP PRN 08/11/20 08/11/20 History Metoclopramide HCl [Metoclopramide 5 mg PO BID 08/11/20 08/11/20 History 5mg Tab] Perry-3 Fatty Acids/Fish Oil 2 cap PO BID 08/11/20 08/11/20 History [[place]ry 3 Fish Oil Softgel] Omeprazole [Omeprazole 20mg 20 mg PO DAILY 08/11/20 08/11/20 History Capsule] Potassium Chloride [Klor-con 20 20 meq PO
--- NOTE | 2020-08-11 11:16 | HMH.HP ---
*Admission Date: 08/10/20 *Chief complaint: Shortness of Breath *History of present illness: 70-year-old female patient presented to the emergency room with complaints of increasing shortness of breath, increased fatigue, weakness and COVID-19 exposure 2 weeks ago. She does have a history of COPD, hypothyroidism, diabetes, and home oxygen at 2 L per nasal cannula. She denies any nausea/vomiting/diarrhea or fever/chills Lab work in the ER CBC unremarkable with white blood cell count of 5.8. Chemistries sodium 134, potassium 5.1, BUN 26, creatinine 0.8 LFTs were all normal Azithromycin, ceftriaxone, dexamethasone, and remdesivir IV are all ordered 08/10/20 CXR: FINDINGS: Prior CABG. Mild cardiomegaly without failure. There is hypoventilation. No lobar consolidation or collapse. The left hemidiaphragm is slightly elevated unchanged. No acute bony abnormalities. IMPRESSION: As above, no change with no acute finding. Dictated by: Ja, 08/10/20 Chest CTA: FINDINGS: HEART AND MEDIASTINAL STRUCTURES: 2.5 cm right thyroid nodule slightly smaller previously measuring 3.1 cm. The trachea is slightly deviated toward the left. No evidence of pulmonary embolus, aortic aneurysm, or aortic dissection. There are mildly prominent mediastinal and hilar lymph nodes. Prior CABG with coronary artery calcifications and/or stents noted. LUNGS AND PLEURAL SPACES: There are bilateral small patchy areas of infiltrate. There are low lung volumes. Peripheral consolidation/atelectatic change is present in the right lung base posteriorly no effusions. BONY STRUCTURES: No acute bony abnormalities apparent. UPPER ABDOMEN: Nodularity noted in the left adrenal gland unchanged. ADDITIONAL FINDINGS: No other significant abnormalities. IMPRESSION: 1. No evidence of pulmonary embolus. 2. Right thyroid nodule which may be slightly smaller. 3. Scattered small areas of patchy infiltrate/atelectatic change. Some of these have a somewhat ground-glass attenuation. Covid19/atypical pneumonia is a consideration. Dictated by: Ja, 70-year-old female patient sitting up in bed respirations are easy and even, she does report she feels much better today than yesterday but still has a little shortness of breath. Oxygen saturations are 97% on 2 L per nasal cannula [facility] History I have reviewed the patient's past medical history: Yes Medical History: Reports:: Asthma, Congestive Heart Failure, Chronic Obstructive Pulmonary Disease (COPD), Coronary Artery Disease, Diabetes Mellitus Type 2, Gastroesophageal Reflux Disease(GERD), Home Oxygen, Hyperlipidemia, Hypertension, Myocardial Infarction Denies:: Cancer, Diabetes Mellitus Type 1, Internal Pacemaker, MRSA, Seizures *Have you ever received a pneumonia vaccine?: Yes *Have you received a flu vaccine this season?: Yes Other Medical History: Reports: Arthritis, Fibromyalgia. Denies: Blood Transfusion Reaction Laterality Cases: Right: Lumpectomy Other Surgeries: Yes: Appendectomy, CABG, Cardiac Catheterization, Cardiac Surgery, Cholecystectomy, Hysterectomy-Total, Tubal Ligation, Other. No: Pacemaker Amputation: No Fractures: No - *Social History Last grade of school completed: 7th or 8th Smoking Status: Former smoker # Packs/Day (cigarettes): 1 Alcohol Intake: never Substance Use Type: denies use *Occupational Status:: disabled Housing: house Household Members: family *Travel in the last 8 weeks: None Family Hx:: Cancer Review of Systems - Review of Systems Review of systems:: pertinent systems reviewed and negative unless documented below - Constitutional Reports body ache(s), Reports fatigue, Reports lack of energy, Reports weakness - Eyes Denies blind spots, Denies loss of vision - ENT Denies abnormal hearing, Denies nosebleed - *Cardiovascular Reports shortness of breath, Reports leg swelling, Denies chest pain - *Respiratory Reports chest congestion, Reports cough, Re
[2020-08-11 11:42] LABS: POC Glucose,Bedside 517 (70-110)
[2020-08-11 12:19] LABS: Glucose,Random 454 mg/dL (74-100)
--- NOTE | 2020-08-11 13:25 | SW/DCPLANNER ---
Addendum entered by Maria Elena Coles 08/12/20 10:06: Patient information and order will be faxed to [facility]. I will follow up with Lizet buckley/ Prateek once patient information/order is reviewed. Patient will discharge home later today. Original Note: I have spoke with Josey at [facility] and she has stated that this patient does receive home O2 from them: continuous 2L. I will follow up with this patient at time of discharge to assist with any needs/new orders. Patient could potentially discharge home tomorrow.
--- NOTE | 2020-08-11 14:34 | PC.NURSE ---
RESPIRATORY CARE NOTE: 1150- SPUTUM CUP PLACED IN PT ROOM, AND PT INSTRUCTED TO COUGH IN ORDER TO PRODUCE SPUTUM; NON-PRODUCTIVE COUGH; PT WILL TRY TO COUGH AND PRODUCE SPUTUM AT A LATER TIME. 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
--- NOTE | 2020-08-11 15:25 | PC.NURSE ---
Pt has been pleasant and cooperative this shift. A&O X4. No complaints of pain or SOA. Pt is receiving O2 via NC @ 2 LPM with sats. >90%. Lungs CTA. Generalized, 1+ pitting edema noted to extremities and abdomen. Skin is C/D/I. Pt ambulates with stand-by assistance and sat up in the recliner for a few hours today. Pt uses the BSC to void clear, yellow urine without issue. Pt has had 4 loose, brown stools this shift thus far. FSBS at 1100 noted to be 517, STAT lab draw result was 454 and pt received 20 units of Humalog per D. VEE Dias. 20 G peripheral IV in the LT hand is patent and infusing NS @ 100 ML/HR. VSS. Call light within reach. Will continue to monitor.
[2020-08-11 16:00] LABS: POC Glucose,Bedside 401 (70-110)
[2020-08-11 21:30] LABS: POC Glucose,Bedside 367 (70-110)
[2020-08-12] VITALS (8 sets, daily range): BP systolic 127–178; BP diastolic 72–96; PULSE 71–87; RESP 20–24; TEMP 36.6–37.6; O2SAT 91–97; BMI 46.5
[2020-08-12 05:31] LABS: Chloride 97 mmol/L (98-107); Sodium 135 mmol/L (136-145)
[2020-08-12 05:33] LABS: Blood Urea Nitrogen 26 mg/dl (7-17); Creatinine Clearance Estimated 45 mL/min (50-200); Estimated Glomerular Filt Rate 71 ml/min (>60); GFR (African American) 86 ML/MIN (>60)
[2020-08-12 05:34] LABS: Alanine Aminotransferase 34 U/L (12-78); Albumin Level 3.9 g/dl (3.5-5.0); Alkaline Phosphatase 111 U/L (38-126); Aspartate Amino Transferase 41 U/L (14-36); Bilirubin,Total 0.3 mg/dl (0.2-1.3); Carbon Dioxide 31 mmol/L (22.0-30.0); Total Protein,Serum 7.9 g/dl (6.3-8.2)
[2020-08-12 05:35] LABS: Calcium 9.4 mg/dl (8.4-10.2); Glucose 255 mg/dl (74-100)
[2020-08-12 05:37] LABS: Basophils % 0.2 % (0.1-2.0); Hematocrit 36.2 % (37.0-47.0); Hemoglobin 12.8 g/dL (12.2-16.2); Lymphocytes # 1.4 K/mm3 (0.7-4.5); Lymphocytes % 16.4 % (10-50); Mean Corpuscular HGB Conc 35.4 g/dL (31.8-35.4); Mean Corpuscular Hemoglobin 29.1 pg (27.0-31.2); Mean Corpuscular Volume 82.2 fl (81-99); Mean Platelet Volume 7.1 fl (7.4-10.4); Monocytes # 0.6 K/mm3 (0.1-1.0); Monocytes % 7.4 % (1.7-9.3); Neutrophils # 6.4 K/mm3 (1.8-7.8); Neutrophils % 75.9 % (37.0-80.0); Platelet Count 203 K/mm3 (142-424); Red Cell Distribution Width 16.2 % (11.5-17.5); White Blood Count 8.5 K/mm3 (4.8-10.8)
--- NOTE | 2020-08-12 06:11 | PC.NURSE ---
Pt has been A&Ox4 this shift, but has shown some confusion and repeats questions frequently. Pt has been between 2-3L NC this shift w/ o2 sats between 92-95%. Coarse crackles heard t/o all lung torres per auscultation. +2 generalized edema noted t/o body. Pt has required x2 assist frequently to get up to BSC. Pt is urinating clear, dark yellow urine. Pt has c/o a mild [place] x2, PRN tylenol administered per SEP. Pt has c/o nausea x1, PRN meds administered per SEP. No other acute changes or complaints at this time.
[2020-08-12 08:54] LABS: POC Glucose,Bedside 507 (70-110)
--- NOTE | 2020-08-12 09:34 | HMH.DCSUM ---
General - General Admission date:: 08/11/20 Discharge date: 08/12/20 HPI HPI: 70-year-old female patient presented to the emergency room with complaints of increasing shortness of breath, increased fatigue, weakness and COVID-19 exposure 2 weeks ago. She does have a history of COPD, hypothyroidism, diabetes, and home oxygen at 2 L per nasal cannula. She denies any nausea/vomiting/diarrhea or fever/chills Lab work in the ER CBC unremarkable with white blood cell count of 5.8. Chemistries sodium 134, potassium 5.1, BUN 26, creatinine 0.8 LFTs were all normal Azithromycin, ceftriaxone, dexamethasone, and remdesivir IV are all ordered 08/10/20 CXR: FINDINGS: Prior CABG. Mild cardiomegaly without failure. There is hypoventilation. No lobar consolidation or collapse. The left hemidiaphragm is slightly elevated unchanged. No acute bony abnormalities. IMPRESSION: As above, no change with no acute finding. Dictated by: Ja, 08/10/20 Chest CTA: FINDINGS: HEART AND MEDIASTINAL STRUCTURES: 2.5 cm right thyroid nodule slightly smaller previously measuring 3.1 cm. The trachea is slightly deviated toward the left. No evidence of pulmonary embolus, aortic aneurysm, or aortic dissection. There are mildly prominent mediastinal and hilar lymph nodes. Prior CABG with coronary artery calcifications and/or stents noted. LUNGS AND PLEURAL SPACES: There are bilateral small patchy areas of infiltrate. There are low lung volumes. Peripheral consolidation/atelectatic change is present in the right lung base posteriorly no effusions. BONY STRUCTURES: No acute bony abnormalities apparent. UPPER ABDOMEN: Nodularity noted in the left adrenal gland unchanged. ADDITIONAL FINDINGS: No other significant abnormalities. IMPRESSION: 1. No evidence of pulmonary embolus. 2. Right thyroid nodule which may be slightly smaller. 3. Scattered small areas of patchy infiltrate/atelectatic change. Some of these have a somewhat ground-glass attenuation. Covid19/atypical pneumonia is a consideration. Dictated by: Ja, 70-year-old female patient sitting up in bed respirations are easy and even, she does report she feels much better today than yesterday but still has a little shortness of breath. Oxygen saturations are 97% on 2 L per nasal cannula Hospital Course Hospital Course: 70-year-old female patient presented to the emergency room with complaints of increasing shortness of breath, increased fatigue, weakness and COVID-19 exposure 2 weeks ago. She does have a history of COPD, hypothyroidism, diabetes, and home oxygen at 2 L per nasal cannula. She denies any nausea/vomiting/diarrhea or fever/chills Lab work in the ER CBC unremarkable with white blood cell count of 5.8. Chemistries sodium 134, potassium 5.1, BUN 26, creatinine 0.8 LFTs were all normal 08/10/20 CXR: FINDINGS: Prior CABG. Mild cardiomegaly without failure. There is hypoventilation. No lobar consolidation or collapse. The left hemidiaphragm is slightly elevated unchanged. No acute bony abnormalities.
[2020-08-12 11:17] LABS: POC Glucose,Bedside 257 (70-110)
--- NOTE | 2020-08-12 12:23 | HMH.PULMPN ---
Internal Medicine - PN: Subj *Date: 08/12/20 *Time: 12:23 Interval history: No acute respirations overnight. Patient remained stable on 2 L nasal cannula Exam - Constitutional Constitutional:: no acute distress, comfortable - HENMT Exam HENMT: normocephalic, atraumatic - Eye Exam Eyes:: normal appearance both eyes and related structures - Respiratory Exam Respiratory:: able to speak in complete sentences, respiratory distress, crackles - Cardiovascular Exam Cardiac:: S1, S2 - GI Exam GI:: soft, obese - Skin Exam Skin: warm, no rash, dry - Neurological Exam Neurological: alert, awake, normal cognition - Extremities Exam Extremities: no cyanosis, no clubbing, edema - Psychiatric Exam Psychiatric: normal affect Assessment and Plan (1) Pneumonia due to COVID-19 virus Status: Acute Category: Medical Code(s): U07.1 - COVID-19; J12.82 - Pneumonia due to coronavirus disease 2019 (2) CAP (community acquired pneumonia) Status: Acute Category: Medical Code(s): J18.9 - Pneumonia, unspecified organism (3) Morbid obesity with BMI of 45.0-49.9, adult Status: Acute Category: Medical Code(s): E66.01 - Morbid (severe) obesity due to excess calories; Z68.42 - Body mass index [BMI] 45.0-49.9, adult (4) COVID-19 virus detected Status: Acute Category: Medical Code(s): U07.1 - COVID-19 (5) Dyspnea due to COVID-19 Status: Acute Category: Medical Code(s): U07.1 - COVID-19; R06.00 - Dyspnea, unspecified (6) Obesity Status: Acute Qualifiers: Obesity type: due to excess calories Obesity classification: adult class 3 (BMI >= 40) Serious obesity comorbidity presence: with serious comorbidity Body mass index: BMI 40.0-44.9 Qualified Code(s): E66.01 - Morbid (severe) obesity due to excess calories; Z68.41 - Body mass index [BMI]40.0-44.9, adult Category: Medical Code(s): E66.9 - Obesity, unspecified (7) IDDM (insulin dependent diabetes mellitus) Status: Chronic Category: Medical Code(s): E11.9 - Type 2 diabetes mellitus without complications; Z79.4 - FPC (current) use of insulin (8) Weakness Status: Acute Category: Medical Code(s): R53.1 - Weakness (9) GERD (gastroesophageal reflux disease) Status: Chronic Qualifiers: Esophagitis presence: without esophagitis Qualified Code(s): K21.9 - Gastro-esophageal reflux disease without esophagitis Category: Medical Code(s): K21.9 - Gastro-esophageal reflux disease without esophagitis (10) Coronary artery disease Status: Chronic Qualifiers: Coronary Disease-Associated Artery/Lesion type: unspecified vessel or lesion type [place] vs. transplanted heart: [place] heart Associated angina: without angina Qualified Code(s): I25.10 - Atherosclerotic heart disease of [place] coronary artery without angina pectoris Category: Medical Code(s): I25.10 - Atherosclerotic heart disease of [place] coronary artery without angina pectoris (11) Vitamin D deficiency Status: Chronic Category: Medical Code(s): E55.9 - Vitamin D deficiency, unspecified (12) Hyperlipidemia Status: Chronic Qualifiers: Hyperlipidemia type: unspecified Qualified Code(s): E78.5 - Hyperlipidemia, unspecified Category: Medical Code(s): E78.5 - Hyperlipidemia, unspecified (13) Hypertension Status: Chronic Qualifiers: Hypertension type: essential hypertension Qualified Code(s): I10 - Essential (primary) hypertension Category: Medical Code(s): I10 - Essential (primary) hypertension - Assessment and plan all Dx Assessment and Plan for all problems:: #COVID-19 pneumonia: #Community-acquired pneumonia Ms. Cade is a 70-year-old female with a prior history of COPD on Symbicort inhaler, on 2 L long-term oxygen therapy at home, ERICKSON on CPAP presented with worsening respiratory failure. CTA performed no evidence of PE, showed very minimal patchy peripheral groundglass opacities. Patient in
== END 2020-08-12 17:04 | disposition home or self-care (01) | DRG 177 ==
LOC: ER 21:16 → 2ND 08-11 01:22
PROVIDERS: Nurse Practitioner Family; Admitting Provider Emergency Medicine; Emergency Provider Emergency Medicine; PCP Physician Assistant; Visit Provider Emergency Medicine
DX: U07.1 COVID-19 (principal); J12.82 Pneumonia due to coronavirus disease 2019; Z68.42 Body mass index [BMI] 45.0-49.9, adult; E11.9 Type 2 diabetes mellitus without complications; J44.9 Chronic obstructive pulmonary disease, unspecified; Z99.81 Dependence on supplemental oxygen; E03.9 Hypothyroidism, unspecified; I50.9 Heart failure, unspecified; I11.0 Hypertensive heart disease with heart failure; I25.2 Old myocardial infarction; K21.9 Gastro-esophageal reflux disease without esophagitis; E55.9 Vitamin D deficiency, unspecified; Z95.1 Presence of aortocoronary bypass graft; Z95.5 Presence of coronary angioplasty implant and graft; Z87.891 Personal history of nicotine dependence; E66.01 Morbid (severe) obesity due to excess calories; Z88.0 Allergy status to penicillin; Z88.8 Allergy status to other drugs, medicaments and biological substances; Z79.4 Long term (current) use of insulin; Z79.02 Long term (current) use of antithrombotics/antiplatelets; Z79.51 Long term (current) use of inhaled steroids
CPT/HCPCS: 71045; 71275; 80048; 80053; 82150; 82803; 82947; 82962; 83690; 83735; 83880; 84145; 84484; 85007; 85025; 85651; 86140; 86328; 87581; 87633; 87798; 93005; 93306; 94640; 94760; 94761; 96365; 96375; 99284; J0456; J2405; Q9967; U0003

== ENCOUNTER → 2020-08-24 18:29 | Outpatient (CLI) | payer MEDICARE, MEDICAID, SELFPAY ==
[2020-08-24 19:02] LABS: Basophils # 0.1 K/mm3 (0-0.2); Basophils % 0.5 % (0.1-2.0); Eosinophils # 0.1 K/mm3 (0.0-0.4); Hematocrit 37.5 % (37.0-47.0); Hemoglobin 12.2 g/dL (12.2-16.2); Lymphocytes # 2.2 K/mm3 (0.7-4.5); Lymphocytes % 22.8 % (10-50); Mean Corpuscular HGB Conc 32.6 g/dL (31.8-35.4); Mean Corpuscular Hemoglobin 27.2 pg (27.0-31.2); Mean Corpuscular Volume 83.5 fl (81-99); Mean Platelet Volume 8.1 fl (7.4-10.4); Monocytes # 0.5 K/mm3 (0.1-1.0); Monocytes % 5.4 % (1.7-9.3); Neutrophils # 6.7 K/mm3 (1.8-7.8); Neutrophils % 70.3 % (37.0-80.0); Platelet Count 320 K/mm3 (142-424); Red Blood Count 4.48 M/mm3 (4.20-5.40); Red Cell Distribution Width 15.4 % (11.5-17.5); White Blood Count 9.5 K/mm3 (4.8-10.8)
[2020-08-24 19:06] LABS: Alanine Aminotransferase 38 U/L (12-78); Albumin Level 3.6 g/dl (3.5-5.0); Alkaline Phosphatase 96 U/L (38-126); Anion Gap 9.7 mEq/L (5-15); Aspartate Amino Transferase 43 U/L (14-36); Bilirubin,Total 0.4 mg/dl (0.2-1.3); Blood Urea Nitrogen 27 mg/dl (7-17); Calcium 9.9 mg/dl (8.4-10.2); Carbon Dioxide 34 mmol/L (22.0-30.0); Chloride 99 mmol/L (98-107); Cholesterol 137 mg/dl (140-200); Estimated Glomerular Filt Rate 82 ml/min (>60); GFR (African American) 100 ML/MIN (>60); Globulin 3.6 g/dL (1.3-3.2); Glucose 200 mg/dl (74-100); HDL Cholesterol 34 mg/dl (40-60); Potassium 4.7 mmoL/L (3.5-5.1); Sodium 138 mmol/L (136-145); Total Protein,Serum 7.2 g/dl (6.3-8.2); Triglycerides 270 mg/dl (30-150); VLDL Cholesterol 54 mg/dL (0-40)
[2020-08-24 19:18] LABS: Direct LDL Cholesterol 50.16 mg/dL (100-129)
[2020-08-24 19:23] LABS: 25-OH Vitamin D, Total 21.4 ng/mL (30-100)
[2020-08-24 19:24] LABS: Free T4 (Free Thyroxine) 1.28 ng/dl (0.78-2.19)
[2020-08-24 19:38] LABS: Thyroid Stimulating Hormone 2.88 uIU/mL (0.465-4.68)
[2020-08-24 21:22] LABS: Hemoglobin A1C 8.9 % (4.0-6.0)
== END ==
PROVIDERS: Visit Provider Physician Assistant
DX: R07.89 Other chest pain; E11.9 Type 2 diabetes mellitus without complications; E55.9 Vitamin D deficiency, unspecified; E78.5 Hyperlipidemia, unspecified; R53.1 Weakness; R53.83 Other fatigue; G89.29 Other chronic pain; M54.5 Low back pain; Z79.4 Long term (current) use of insulin
CPT/HCPCS: 80053; 80061; 82043; 82306; 83036; 84439; 84443; 85025

== ENCOUNTER 2020-08-25 20:09 | Emergency (ER) | payer MEDICARE, MEDICAID, SELFPAY ==
[2020-08-25] VITALS (8 sets, daily range): BP systolic 116–165; BP diastolic 50–93; PULSE 57–73; RESP 16–28; TEMP 36.8; O2SAT 94–99; BMI 45.2
--- NOTE | 2020-08-25 20:33 | XR_ITS ---
PROCEDURE: XR CHEST PORTABLE CLINICAL HISTORY: SOA shortness of air COMPARISON: CR XR CHEST PORTABLE from 11/30/2019 CR XR CHEST 2V from 04/04/2020 CR XR CHEST PORTABLE from 08/10/[address] ANGIO CHEST from 08/10/2020 FINDINGS: There are low lung volumes. There is mild cardiomegaly without failure. There has been a prior median sternotomy. There is vascular crowding in the lung bases. The increased density is present in the right mid and lower lung zone suggesting underlying atelectasis or infiltrate. No acute bony abnormalities. IMPRESSION: Hypoventilation with mild cardiomegaly with atelectasis or infiltrate in the right lower Dictated by: Tru Peres MD 08/26/2020 05:14 Tru Peres MD in [facility] 08/26/2020 05:14
--- NOTE | 2020-08-25 20:33 | ECG_ITS ---
APPROVED REPORT Exam: Resting ECG HR:70 bpm ECG Measurements Heart Rate 70 AXES OR 202 P 14 QRSd 94 QRS 17 QT 426 T 69 QTc 460 Conclusion Normal sinus rhythm with sinus arrhythmia Normal ECG Electronically signed by : Andrade Pack, 08/26/2020 13:49:51
[2020-08-25 20:50] LABS: Adenovirus,PCR Not Detected (NotDetected); Bordetella Pertussis Not Detected (NotDetected); Chlamydophila Pneumoniae, PCR Not Detected (NotDetected); Coronavirus 229E Not Detected (NotDetected); Coronavirus NL63 Not Detected (NotDetected); Coronavirus OC43 Not Detected (NotDetected); Coronovirus HKU1,PCR Not Detected (NotDetected); Human Metapneumovirus Not Detected (NotDetected); Influenza A, PCR Not Detected (NotDetected); Influenza AH1, 2009 Not Detected (NotDetected); Influenza AH1, PCR Not Detected (NotDetected); Influenza AH3,PCR Not Detected (NotDetected); Influenza B, PCR Not Detected (NotDetected); Mycoplasma Pneumoniae, PCR Not Detected (NotDetected); Parainfluenza 1, PCR Not Detected (NotDetected); Parainfluenza 2, PCR Not Detected (NotDetected); Parainfluenza 3, PCR Not Detected (NotDetected); Parainfluenza 4, PCR Not Detected (NotDetected); Respiratory Syncytial Virus Not Detected (NotDetected); Rhinovirus/Enterovirus Not Detected (NotDetected)
[2020-08-25 20:53] LABS: ABG Base Excess 3.8 mmol/L (-2.4-2.3); ABG HCO3 27.7 mmhg (22.0-26.0); ABG Oxygen Saturation 97 % (90-100); ABG PCO2 40.1 mmhg (35.0-45.0); ABG PH 7.46 mmol/L (7.35-7.45); ABG PO2 81.3 mmhg (80-100); ABG TCO2 28.9 mmhg (23-27); Allen's Test Y; Oxygen 3 %; Source R/R
--- NOTE | 2020-08-25 20:54 | HMH.EDSOB ---
ED Disposition Clinical Impression: Dyspnea due to COVID-19 Obesity Qualifiers: Obesity type: due to excess calories Obesity classification: adult class 3 (BMI >= 40) Serious obesity comorbidity presence: with serious comorbidity Body mass index: BMI 45.0-49.9 Qualified Code(s): E66.01 - Morbid (severe) obesity due to excess calories; Z68.42 - Body mass index [BMI] 45.0-49.9, adult Disposition: Home, Self-Care Condition on Discharge: Good Instructions: DI for COVID-19 (Suspected or Confirmed ) Additional Instructions: resume orders Referrals: Hilary Bagley PA [Primary Care Provider] - - Critical Care Critical Care Time: No Attestation: On 08/25/20, the high probability of a clinically significant, sudden or life threatening deterioration of the following system(s) required my full and direct attention, intervention and personal management. The time I documented below is in addition to time spent performing reported procedures but includes the following listed in this critical care notation. Medical Decision Making - Medical Records Medical records reviewed: Yes: I reviewed the patient's medical records. - Sam Inquiry Pt receiving controlled substance: No Vital Signs: 08/25/20 20:10 08/25/20 20:33 08/25/20 21:10 Temperature 98.2 F Temperature Source Oral Pulse Rate [Apical] 73 71 65 Respiratory Rate 28 H 18 Blood Pressure [Right Arm] 148/71 H 147/90 H 141/65 H Blood Pressure Mean [Right Arm] 96 109 90 Blood Pressure Source [Right Arm] Automatic Cuff Automatic Cuff Automatic Cuff Blood Pressure Position [Right Arm] Supine 02 Sat by Pulse Oximetry 96 95 94 L Oxygen Delivery Method Nasal Cannula Nasal Cannula Nasal Cannula Oxygen Flow Rate (LPM) 2 08/25/20 21:40 08/25/20 22:10 08/25/20 22:40 Temperature Temperature Source Pulse Rate [Apical] 64 67 66 Respiratory Rate 18 17 16 Blood Pressure [Right Arm] 165/72 H 159/57 H 116/93 H Blood Pressure Mean [Right Arm] 103 91 100 Blood Pressure Source [Right Arm] Automatic Cuff Automatic Cuff Blood Pressure Position [Right Arm] Sitting 02 Sat by Pulse Oximetry 98 99 99 Oxygen Delivery Method Nasal Cannula Room Air Nasal Cannula Oxygen Flow Rate (LPM) 08/25/20 23:10 08/25/20 23:40 08/26/20 01:34 Temperature Temperature Source Pulse Rate [Apical] 60 57 L 79 Respiratory Rate 18 18 19 Blood Pressure [Right Arm] 142/60 H 120/50 L 172/77 H Blood Pressure Mean [Right Arm] 87 73 108 Blood Pressure Source [Right Arm] Automatic Cuff Blood Pressure Position [Right Arm] Sitting 02 Sat by Pulse Oximetry 95 95 95 Oxygen Delivery Method Nasal Cannula Nasal Cannula Nasal Cannula Oxygen Flow Rate (LPM) - Lab Data Lab results reviewed: Yes: I reviewed the patient's lab results. Lab Results 08/25/20 20:35: WBC 10.9 H, RBC 4.79, Hgb 12.6, Hct 39.2, MCV 81.9, MCH 26.3 L, MCHC 32.1, RDW 15.8, Plt Count 326, MPV 7.4, Neut % (Auto) 74.2, Lymph % (Auto) 19.6, [place] % (Auto) 4.8, Eos % (Auto) 0.9, Baso % (Auto) 0.5, Neut # (Auto) 8.1 H, Lymph # (Auto) 2.1, [place] # (Auto) 0.5, Eos # (Auto) 0.1, Baso # (Auto) 0.1, ESR > 140 H 08/25/20 20:35: Sodium 137, Potassium 4.1, Chloride 97 L, Carbon Dioxide 34 H, Anion Gap 10.1, BUN 22 H, Creatinine 0.70, Estimated Creat Clear 46, Estimated GFR 82, Est GFR ( Amer) 100, Glucose 119 H, Calcium 10.3 H, Total Bilirubin 0.4, Direct Bilirubin 0.2, Conjugated Bilirubin 0.0, Indirect Bilirubin 0.2, Unconjugated Bilirubin 0.2, AST 37 H, ALT 40, Alkaline Phosphatase 95, Troponin I < 0.01, C-Reactive Protein 25.7 H, NT-Pro-B Natriuret Pep 205 H, Total Protein 8.3 H, Albumin 4.0 D, Procalcitonin 0.100 08/25/20 20:35: Lactate 1.6 08/25/20 20:35: SARS-CoV-2 IgG Ab (Rapid) Positive A, SARS-CoV-2 IgM Ab (Rapid) Negative 08/25/20 20:35: Chlamy pneumoniae PCR Not detected, Adenovirus (PCR) Not detected, B. pertussis DNA (PCR) Not detected, Coronavirus OC43 (PCR) Not detected, Coronavirus HKU1 (PCR) Not detecte
[2020-08-25 20:57] LABS: Basophils # 0.1 K/mm3 (0-0.2); Basophils % 0.5 % (0.1-2.0); Eosinophils # 0.1 K/mm3 (0.0-0.4); Eosinophils % 0.9 % (0.1-12.0); Hematocrit 39.2 % (37.0-47.0); Hemoglobin 12.6 g/dL (12.2-16.2); Lymphocytes # 2.1 K/mm3 (0.7-4.5); Lymphocytes % 19.6 % (10-50); Mean Corpuscular HGB Conc 32.1 g/dL (31.8-35.4); Mean Corpuscular Hemoglobin 26.3 pg (27.0-31.2); Mean Corpuscular Volume 81.9 fl (81-99); Mean Platelet Volume 7.4 fl (7.4-10.4); Monocytes # 0.5 K/mm3 (0.1-1.0); Monocytes % 4.8 % (1.7-9.3); Neutrophils # 8.1 K/mm3 (1.8-7.8); Neutrophils % 74.2 % (37.0-80.0); Platelet Count 326 K/mm3 (142-424); Red Blood Count 4.79 M/mm3 (4.20-5.40); Red Cell Distribution Width 15.8 % (11.5-17.5); White Blood Count 10.9 K/mm3 (4.8-10.8)
[2020-08-25 21:00] LABS: Alanine Aminotransferase 40 U/L (12-78); Alkaline Phosphatase 95 U/L (38-126); Anion Gap 10.1 mEq/L (5-15); Aspartate Amino Transferase 37 U/L (14-36); Bilirubin,Direct 0.2 mg/dl (0.0-0.4); Bilirubin,Indirect 0.2 mg/dL (0.0-0.9); Bilirubin,Total 0.4 mg/dl (0.2-1.3); Bilirubin,Unconjugated 0.2 mg/dL (0.0-1.1); Blood Urea Nitrogen 22 mg/dl (7-17); Calcium 10.3 mg/dl (8.4-10.2); Carbon Dioxide 34 mmol/L (22.0-30.0); Chloride 97 mmol/L (98-107); Creatinine Clearance Estimated 46 mL/min (50-200); Estimated Glomerular Filt Rate 82 ml/min (>60); GFR (African American) 100 ML/MIN (>60); Glucose 119 mg/dl (74-100); Lactic Acid 1.6 mmol/L (0.7-2.1); Potassium 4.1 mmoL/L (3.5-5.1); Sodium 137 mmol/L (136-145); Total Protein,Serum 8.3 g/dl (6.3-8.2)
[2020-08-25 21:06] LABS: C-Reactive Protein 25.7 mg/L (0-4)
[2020-08-25 21:15] LABS: NT Pro Brain Natriuretic Pep. 205 pg/mL (0-125)
[2020-08-25 21:16] LABS: Troponin I < 0.01 ng/ml (0.00-0.034)
[2020-08-25 21:25] LABS: Coronavirus 19 IgG Antibody Positive (Negative); Coronavirus 19 IgM Antibody Negative (Negative)
[2020-08-25 22:06] LABS: Erythrocyte Sedimentation Rate > 140 mm/hr (0-30)
--- NOTE | 2020-08-25 23:02 | PC.NURSE ---
repositioned in bed. pt moved self
[2020-08-26 00:16] LABS: Troponin I < 0.01 ng/ml (0.00-0.034)
[2020-08-26 00:19] LABS: Coronavirus 19, PCR Detected (NotDetected)
[2020-08-26 01:34] VITALS: BP 172/77; PULSE 79; RESP 19; O2SAT 95
[2020-08-26 02:11] VITALS: BP 112/74; PULSE 75; RESP 18; TEMP 36.7; O2SAT 98
== END 2020-08-26 02:18 | disposition home or self-care (01) ==
PROVIDERS: Emergency Provider Emergency Medicine; PCP Physician Assistant
DX: U07.1 COVID-19 (principal); R06.00 Dyspnea, unspecified; E66.01 Morbid (severe) obesity due to excess calories; Z68.42 Body mass index [BMI] 45.0-49.9, adult; I25.2 Old myocardial infarction; I10 Essential (primary) hypertension; E78.5 Hyperlipidemia, unspecified; E11.9 Type 2 diabetes mellitus without complications; I25.10 Atherosclerotic heart disease of native coronary artery without angina pectoris; K21.9 Gastro-esophageal reflux disease without esophagitis; J44.9 Chronic obstructive pulmonary disease, unspecified; Z88.0 Allergy status to penicillin; Z88.8 Allergy status to other drugs, medicaments and biological substances; Z87.891 Personal history of nicotine dependence; Z79.899 Other long term (current) drug therapy
CPT/HCPCS: 71045; 80048; 80076; 82803; 83605; 83880; 84145; 84484; 85025; 85651; 86140; 86328; 87040; 87077; 87186; 87581; 87633; 87798; 93005; 96365; 96375; 99284; J2405

== ENCOUNTER 2020-10-08 16:06 | Emergency (ER) | payer MEDICARE, MEDICAID, SELFPAY ==
[2020-10-08] VITALS (7 sets, daily range): BP systolic 121–139; BP diastolic 52–67; PULSE 68–77; RESP 18; TEMP 36.8; O2SAT 95–100; BMI 46.9
--- NOTE | 2020-10-08 16:46 | HMH.EDGENADL ---
ED Disposition Clinical Impression: Edema Qualifiers: Edema type: unspecified Qualified Code(s): R60.9 - Edema, unspecified Disposition: Home, Self-Care Condition on Discharge: Good Instructions: DI for Peripheral Edema -- Bilateral Additional Instructions: See Dr. Panchal in his office tomorrow. Call tomorrow morning to obtain appointment time. Referrals: Hilary Bagley PA [Primary Care Provider] - - Critical Care Critical Care Time: No Attestation: On 10/08/20, the high probability of a clinically significant, sudden or life threatening deterioration of the following system(s) required my full and direct attention, intervention and personal management. The time I documented below is in addition to time spent performing reported procedures but includes the following listed in this critical care notation. Medical Decision Making - Sam Inquiry Pt receiving controlled substance: No Vital Signs: 10/08/20 16:08 10/08/20 16:15 10/08/20 16:17 Temperature 98.3 F Temperature Source Oral Pulse Rate 77 71 Pulse Rate [Right] 70 Respiratory Rate 18 Blood Pressure 139/67 Blood Pressure [Right Arm] 139/67 Blood Pressure Mean 85 Blood Pressure Mean [Right Arm] 91 02 Sat by Pulse Oximetry 100 95 100 Oxygen Delivery Method Nasal Cannula Oxygen Flow Rate (LPM) 2.5 10/08/20 16:30 10/08/20 16:31 10/08/20 16:45 Temperature Temperature Source Pulse Rate 69 69 68 Pulse Rate [Right] Respiratory Rate Blood Pressure 124/52 L Blood Pressure [Right Arm] Blood Pressure Mean 76 Blood Pressure Mean [Right Arm] 02 Sat by Pulse Oximetry 100 100 100 Oxygen Delivery Method Oxygen Flow Rate (LPM) - Lab Data Lab Results 10/08/20 16:30: WBC 8.7, RBC 4.22, Hgb 11.2 L, Hct 34.6 L, MCV 82.1, MCH 26.5 L, MCHC 32.3, RDW 15.4, Plt Count 249, MPV 8.1, Neut % (Auto) 64.5, Lymph % (Auto) 27.6, [place] % (Auto) 5.1, Eos % (Auto) 2.6, Baso % (Auto) 0.3, Neut # (Auto) 5.6, Lymph # (Auto) 2.4, [place] # (Auto) 0.4, Eos # (Auto) 0.2, Baso # (Auto) 0.0 10/08/20 16:30: Sodium 141, Potassium 4.3, Chloride 102, Carbon Dioxide 34 H, Anion Gap 9.3, BUN 31 H, Creatinine 0.90, Estimated Creat Clear 46, Estimated GFR 62, Est GFR ( Amer) 75, Glucose 146 H, Calcium 9.6, Troponin I < 0.01, NT-Pro-B Natriuret Pep 172 H 10/08/20 16:30: Total Bilirubin 0.4, Direct Bilirubin 0.2, Conjugated Bilirubin 0.0, Indirect Bilirubin 0.2, Unconjugated Bilirubin 0.2, AST 35, ALT 31, Alkaline Phosphatase 101, Total Protein 7.3, Albumin 4.0 Result diagrams: 10/08/20 16:30 10/08/20 16:30 Orders (Tests/Meds): ED MEDICATIONS Discontinued Medications Generic Name Dose Route Start Last Admin Trade Name Freq PRN Reason Stop Dose Admin Furosemide 40 mg 10/08/20 17:08 10/08/20 17:16 Furosemide 40mg/4ml Vial IV 10/08/20 17:09 40 mg ONCE ONE Administration ORDERS Category Date Time Status Urinalysis and Microscopic Stat Lab 10/08/20 16:47 Ordered - Radiology Data #1 Image(s): Chest Image Reviewed: Yes I have reviewed radiologist's interpretation PROCEDURE: XR CHEST PORTABLE CLINICAL HISTORY: swelling Edema and swelling COMPARISON: CR XR CHEST 2V from 04/04/2020 CR XR CHEST PORTABLE from 08/10/[address] ANGIO CHEST from 08/10/2020 CR XR CHEST PORTABLE from 08/25/2020 FINDINGS: Prior CABG. Cardiomegaly without failure. No lobar consolidation or collapse. Limited exam secondary to patient's body habitus. No acute bony abnormalities. IMPRESSION: No acute findings. Dictated by: Tru Peres MD 10/08/2020 17:20 Tru Peres MD in [place] 10/08/2020 17:20 - ECG Data Tracing #1 EKG interpreted by Cole Streeter MD: Rhythm: sinus Rate: 69 [place]: normal Ectopy: none Conduction: normal ST Segment Changes: none T Wave Changes: none Q Waves: none No evidence of acute ischemia or injury - Physician Consults Physician Consulted: [place]
[2020-10-08 16:50] LABS: Basophils % 0.3 % (0.1-2.0); Eosinophils # 0.2 K/mm3 (0.0-0.4); Eosinophils % 2.6 % (0.1-12.0); Hematocrit 34.6 % (37.0-47.0); Hemoglobin 11.2 g/dL (12.2-16.2); Lymphocytes # 2.4 K/mm3 (0.7-4.5); Lymphocytes % 27.6 % (10-50); Mean Corpuscular HGB Conc 32.3 g/dL (31.8-35.4); Mean Corpuscular Hemoglobin 26.5 pg (27.0-31.2); Mean Corpuscular Volume 82.1 fl (81-99); Mean Platelet Volume 8.1 fl (7.4-10.4); Monocytes # 0.4 K/mm3 (0.1-1.0); Monocytes % 5.1 % (1.7-9.3); Neutrophils # 5.6 K/mm3 (1.8-7.8); Neutrophils % 64.5 % (37.0-80.0); Platelet Count 249 K/mm3 (142-424); Red Blood Count 4.22 M/mm3 (4.20-5.40); Red Cell Distribution Width 15.4 % (11.5-17.5); White Blood Count 8.7 K/mm3 (4.8-10.8)
[2020-10-08 16:51] LABS: Chloride 102 mmol/L (98-107); Sodium 141 mmol/L (136-145)
[2020-10-08 16:52] LABS: Potassium 4.3 mmoL/L (3.5-5.1)
[2020-10-08 16:54] LABS: Blood Urea Nitrogen 31 mg/dl (7-17); Creatinine Clearance Estimated 46 mL/min (50-200); Estimated Glomerular Filt Rate 62 ml/min (>60); GFR (African American) 75 ML/MIN (>60)
[2020-10-08 16:55] LABS: Alanine Aminotransferase 31 U/L (12-78); Alkaline Phosphatase 101 U/L (38-126); Anion Gap 9.3 mEq/L (5-15); Aspartate Amino Transferase 35 U/L (14-36); Bilirubin,Direct 0.2 mg/dl (0.0-0.4); Bilirubin,Indirect 0.2 mg/dL (0.0-0.9); Bilirubin,Total 0.4 mg/dl (0.2-1.3); Bilirubin,Unconjugated 0.2 mg/dL (0.0-1.1); Calcium 9.6 mg/dl (8.4-10.2); Carbon Dioxide 34 mmol/L (22.0-30.0); Glucose 146 mg/dl (74-100); Total Protein,Serum 7.3 g/dl (6.3-8.2)
--- NOTE | 2020-10-08 17:02 | ECG_ITS ---
APPROVED REPORT Exam: Resting ECG HR:69 bpm ECG Measurements Heart Rate 69 AXES NV 204 P -3 QRSd 90 QRS 0 QT 422 T 47 QTc 452 Conclusion Normal sinus rhythm with sinus arrhythmia Normal ECG Electronically signed by : Andrade Pack, 10/09/2020 11:40:28
[2020-10-08 17:04] LABS: NT Pro Brain Natriuretic Pep. 172 pg/mL (0-125)
[2020-10-08 17:10] LABS: Troponin I < 0.01 ng/ml (0.00-0.034)
--- NOTE | 2020-10-08 17:26 | PC.NURSE ---
Paged Dr Panchal at this time.
--- NOTE | 2020-10-08 17:27 | PC.NURSE ---
Dr Panchal returned call.
--- NOTE | 2020-10-08 17:51 | PC.NURSE ---
CALLED PATIENTS DAUGHTER DORAAW WITH PATIENT PERMISSION TO COME GET PATIENT THAT IS UP FOR DISCHARGE
== END 2020-10-08 18:30 | disposition home or self-care (01) ==
PROVIDERS: Emergency Provider Emergency Medicine; PCP Physician Assistant
DX: R60.9 Edema, unspecified (principal); Z95.1 Presence of aortocoronary bypass graft; Z99.81 Dependence on supplemental oxygen; I50.9 Heart failure, unspecified; I25.10 Atherosclerotic heart disease of native coronary artery without angina pectoris; J44.9 Chronic obstructive pulmonary disease, unspecified; E11.9 Type 2 diabetes mellitus without complications; I10 Essential (primary) hypertension; K21.9 Gastro-esophageal reflux disease without esophagitis; E78.5 Hyperlipidemia, unspecified; I25.2 Old myocardial infarction; Z87.891 Personal history of nicotine dependence; Z88.0 Allergy status to penicillin; Z79.899 Other long term (current) drug therapy
CPT/HCPCS: 71045; 80048; 80076; 83880; 84484; 85025; 93005; 99281

== ENCOUNTER → 2020-10-19 15:22 | Outpatient (CLI) | payer MEDICARE, MEDICAID, SELFPAY ==
--- NOTE | 2020-10-19 15:24 | CA_ITS ---
APPROVED REPORT EXAM: Comprehensive 2D, Doppler, and color-flow Echocardiogram Naturopathic Doctor: BEATA Orozco, RVS Ht: 5 ft 5 in Wt: 285lbs BSA: 2.30 BP: 120/82 mmHg Indications: Pulmonary Hypertension, Congestive Heart Failure, Shortness of Breath, CAD-cabg, hospital d/c-10/08/20 Echo Enhancing Agent Comments: Technically limited exam due to extreme body habitus and lung impedence. Patient intolerant to exam 2D Dimensions Left Atrium 4.89 cm LA Volume 84.30 mL LVOT 2.17 cm (M/F) 1.5-2.5 LA Volume Index 36.70 mL/m2 (M/F) 16-34 M-Mode Dimensions RVDd 3.66 cm (0.9-2.6) LA Diam 5.39 cm (1.9-4.0) LVDd 5.14 cm (3.5-5.7) Ao Diam 2.90 cm (2.0-3.7) LVDs 2.77 cm (3.5-5.7) IVSd 0.80 cm (0.6-1.1) PWd 0.88 cm (0.6-1.1) EF (Teich) 77.20% EPSs 0.57 cm FS 46.10% EDV (Teich) 126.10 mL TAPSE 2.12 (<1.7) ESV (Teich) 28.80 mL LV Diastology E Decel Time 233.00 (160-240 msec) E/A Ratio 1.17 MED E' 8.00 (< 7 cm/sec) MED A' 8.90 cm/s E'/MED E' Ratio 18.73 (>14) LAT E' 6.80 (<10 cm/sec) LAT A' 8.90 cm/s E/LAT E' Ratio 22.03 (>14) Aortic Valve LVOT Max 116.00 (70-110 cm/s) LVOT VTI 23.59 cm AoV Peak Navdeep. 240.00 (50-130 cm/s) AO Peak GR. 23.10 mmHg AO Mean GR. 14.90 (<5 mmHg) AO VTI 51.30 (18-25 cm) JOSH (VTI) 1.70 (2.5-4.5 cm2) Mitral Valve MV E Max Navdeep. 150.00 (40-130 cm/s) MV A Velocity 128.00 (40-130 cm/s) E/A Ratio 1.17 MV Decel. Time 233.00 (160-240 ms) MV Mean Gr. 3.10 (<2mmHg) MV PHT 68.00 ms Pulmonary Valve PV Peak Velocity 126.00 (50-150 cm/s) Tricuspid Valve TR P. Velocity 285.00 cm/s RAP Estimate 10.00 mmHg RVSP 42.40 mmHg Left Ventricle Technically very difficult and poor study because of the patient fact in poor acoustic windows. Repeat study with Definity contrast is recommended. Left atrium is mildly enlarged, left ventricle is normal size, probably preserved left ventricular systolic function, diastolic parameters are inconclusive. Right Ventricle Right atrium and right ventricle appears to be mildly enlarged with normal contractility. Aortic Valve Aortic valve is thickened and calcified, there is aortic stenosis present which is difficult to quantify from this study due to suboptimal Doppler. Mitral Valve Mitral valve leaflets are minimally thickened, the calcification extends in both anterior posterior mitral leaflet, there is no significant mitral inflow obstruction, there is mild mitral regurgitation. Tricuspid Valve Tricuspid valve grossly normal, there is trace tricuspid regurgitation, tricuspid regurgitation jet velocity is inadequate for calculation of the right ventricular systolic pressure. Pulmonic Valve Pulmonic valve is poorly visualized. Great Vessels Aortic root is normal size. Pericardium No significant pericardial effusion noted. Conclusion 1. Technically very difficult and poor study because of the patient fact in poor acoustic windows. 2. Biatrial enlargement, normal left ventricular size, probably preserved left ventricular systolic function, endocardial borders are very poorly visualized., Repeat study with Definity contrast is recommended. Diastolic parameters are inconclusive. 3. Thickened and calcified aortic valve Doppler is inadequate for estimation of the aortic valve area and aortic stenosis. 4. Mild mitral and trace tricuspid regurgitation. 5. No significant pericardial effusion noted. Electronically signed by : Sabino Gaona
== END ==
PROVIDERS: PCP Physician Assistant; Visit Provider Physician Assistant
DX: R06.02 Shortness of breath (principal)
CPT/HCPCS: 93306

== ENCOUNTER → 2020-10-26 09:34 | Outpatient (CLI) | payer MEDICARE, MEDICAID, SELFPAY ==
[2020-10-26 15:47] LABS: Basophils % 0.3 % (0.1-2.0); Eosinophils # 0.3 K/mm3 (0.0-0.4); Hematocrit 35.2 % (37.0-47.0); Hemoglobin 11.2 g/dL (12.2-16.2); Lymphocytes # 2.2 K/mm3 (0.7-4.5); Lymphocytes % 25.9 % (10-50); Mean Corpuscular HGB Conc 31.8 g/dL (31.8-35.4); Mean Corpuscular Hemoglobin 26.7 pg (27.0-31.2); Mean Corpuscular Volume 83.7 fl (81-99); Mean Platelet Volume 7.6 fl (7.4-10.4); Monocytes # 0.3 K/mm3 (0.1-1.0); Monocytes % 3.5 % (1.7-9.3); Neutrophils # 5.6 K/mm3 (1.8-7.8); Neutrophils % 67.3 % (37.0-80.0); Platelet Count 291 K/mm3 (142-424); Red Blood Count 4.21 M/mm3 (4.20-5.40); Red Cell Distribution Width 15.5 % (11.5-17.5); White Blood Count 8.3 K/mm3 (4.8-10.8)
[2020-10-26 15:57] LABS: Chloride 103 mmol/L (98-107); Sodium 143 mmol/L (136-145)
[2020-10-26 15:58] LABS: Potassium 4.3 mmoL/L (3.5-5.1)
[2020-10-26 16:00] LABS: Blood Urea Nitrogen 24 mg/dl (7-17); Estimated Glomerular Filt Rate 82 ml/min (>60); GFR (African American) 100 ML/MIN (>60)
[2020-10-26 16:01] LABS: Anion Gap 11.3 mEq/L (5-15); Calcium 9.9 mg/dl (8.4-10.2); Carbon Dioxide 33 mmol/L (22.0-30.0); Glucose 134 mg/dl (74-100)
[2020-10-26 16:40] LABS: Coronavirus 19 IgG Antibody Positive (Negative); Coronavirus 19 IgM Antibody Negative (Negative)
== END ==
PROVIDERS: Visit Provider Internal Medicine
DX: Z01.818 Encounter for other preprocedural examination (principal); Z20.822 Contact with and (suspected) exposure to COVID-19
CPT/HCPCS: 36415; 80048; 85025; 86328

== ENCOUNTER 2020-10-28 07:52 | Day surgery (SDC) | payer MEDICARE, MEDICAID, SELFPAY ==
[2020-10-28] VITALS (19 sets, daily range): BP systolic 124–171; BP diastolic 59–103; PULSE 70–85; RESP 16–20; O2SAT 80–100; BMI 46.7
--- NOTE | 2020-10-28 | IR_ITS ---
APPROVED REPORT Patient Location: Outpatient Cutter Machine: NEEL Pagan RT (R) PROCEDURES Right heart catheterization Left heart catheterization Left ventriculogram Selective coronary angiogram Selective engage in left internal mammary artery to the LAD Selective engagement of the saphenous vein graft to the right coronary INDICATION Coronary artery disease, History of coronary bypass surgery 1996, Pulmonary hypertension, Biventricular congestive heart failure Informed consent was obtained prior to the procedure. COMPLICATIONS None Estimated Blood Loss: less than 10ml TECHNIQUE One percent lidocaine used to anesthetize the right groin. The right femoral artery was accessed via the Seldinger technique and a 5 Welsh sheath was placed in the right femoral artery. A JL 4, JR4 catheter were used to perform left heart catheterization, left ventriculogram selective coronary angiography as well as selective engagement of the 1 vein graft and the left internal mammary artery. 1% lidocaine used anesthetize the right groin and the right femoral vein was also accessed via the Salinger technique. A 7 Welsh sheath was placed in the right femoral vein and a Atwood-Lucina catheter was floated in the pulmonary arteries were right heart catheterization was performed. At the end of the procedure the patient transfer the postop holding in stable addition for sheath removal ANGIOGRAPHIC RESULTS The left main artery Mild 10% ostial and distal stenosis The left anterior descending artery Ostially occluded The circumflex artery Is nondominant yet still a large vessel with a mild ostial 10 to 20% stenosis and mild 10% luminal irregularities in the first obtuse marginal artery The right coronary artery Dominant proximally occluded The DURHAM ventriculogram reveals Preserved at 50% The left ventricular end-diastolic pressure 30 mmHg The left internal mammary artery is widely patent to the widely patent LAD The saphenous vein graft supplying the dominant right coronary artery is patent with diffuse 10 to 20% stenoses. The right coronary itself supplies a small amount of myocardium with the posterior descending artery being small in caliber Right atrial pressure varied significantly with respirations however it appeared to peak as high as 40 mmHg Right ventricular pressure 60/30 mmHg Pulmonary occlusion pressure 35 mmHg Pulmonary artery pressure 60/40 mmHg IMPRESSION Patent coronary arteries as described above Preserved ejection fraction Severe biventricular congestive heart failure Severe pulmonary hypertension PLAN 1. Medical management for coronary disease 2. Patient requires very aggressive diuresis with significant weight loss. 3. If patient has difficulty with management of congestive heart failure in the future then perhaps CardioMEM may be a consideration Electronically signed by : Jacob Martínez, 10/28/2020 11:45:19
[2020-10-28 13:17] LABS: CATHL Arterial O2 SAT 72 % (90-100); CATHL Venous O2 SAT 68 % (75-80)
== END 2020-10-28 14:55 | disposition home or self-care (01) ==
LOC: CATHLAB 07:54
PROVIDERS: PCP Physician Assistant; Visit Provider Internal Medicine
DX: I27.20 Pulmonary hypertension, unspecified (principal); Z95.1 Presence of aortocoronary bypass graft; Z79.4 Long term (current) use of insulin; E11.9 Type 2 diabetes mellitus without complications; Z79.01 Long term (current) use of anticoagulants; E03.9 Hypothyroidism, unspecified; E66.01 Morbid (severe) obesity due to excess calories; Z68.42 Body mass index [BMI] 45.0-49.9, adult; J44.9 Chronic obstructive pulmonary disease, unspecified; Z99.81 Dependence on supplemental oxygen; E78.5 Hyperlipidemia, unspecified; I10 Essential (primary) hypertension; Z91.041 Radiographic dye allergy status; Z79.899 Other long term (current) drug therapy
CPT/HCPCS: 82810; 93461; 99152; 99153; C1725; C1769; C1894; Q9967

== ENCOUNTER → 2020-11-02 09:48 | Outpatient (CLI) | payer MEDICARE, MEDICAID, SELFPAY ==
[2020-11-02 10:45] VITALS: PULSE 72; PULSE 76
[2020-11-02 15:06] LABS: Chloride 92 mmol/L (98-107); Potassium 4.6 mmoL/L (3.5-5.1); Sodium 137 mmol/L (136-145)
[2020-11-02 15:09] LABS: Anion Gap 9.6 mEq/L (5-15); Blood Urea Nitrogen 36 mg/dl (7-17); Estimated Glomerular Filt Rate 82 ml/min (>60); GFR (African American) 100 ML/MIN (>60)
[2020-11-02 15:10] LABS: Glucose 310 mg/dl (74-100)
[2020-11-02 15:23] LABS: Carbon Dioxide 40 mmol/L (22.0-30.0)
== END ==
PROVIDERS: Nurse Practitioner Family; PCP Physician Assistant; Visit Provider Internal Medicine Pulmonary Disease
DX: J84.9 Interstitial pulmonary disease, unspecified (principal); Z87.891 Personal history of nicotine dependence
CPT/HCPCS: 80048; 94060; 94618; 94640; 94727; 94729

== ENCOUNTER → 2020-11-02 13:58 | Outpatient (CLI) | payer MEDICARE, SELFPAY | PROVIDERS: Visit Provider Nurse Practitioner Family | DX: R06.02 Shortness of breath (principal) | CPT/HCPCS: 80048 ==

== ENCOUNTER → 2020-11-04 14:51 | Outpatient (CLI) | payer MEDICARE, MEDICAID, SELFPAY ==
--- NOTE | 2020-11-04 | CA_ITS ---
APPROVED REPORT EXAM: Comprehensive 2D, Doppler, and color-flow Echocardiogram Starting Sheet Tank Operator: Yasmeen Bradley, RCS, RVS Ht: 5 ft 5 in Wt: 286lbs BSA: 2.30 BP: 92/39 mmHg Indications: PHTN, CHF Echo Enhancing Agent Indication: Endocardial border delineation Agent(s) / Amount(s) Used: Definity 2 cc Comments: extreme body habitus M-Mode Dimensions LVDd 5.01 cm (3.5-5.7) LVDs 3.18 cm (3.5-5.7) EF (Teich) 66.10% FS 36.50% EDV (Teich) 118.80 mL ESV (Teich) 40.30 mL Conclusion 1. Limited echocardiogram with Definity contrast was performed 2. Normal left ventricular size, mild concentric left ventricular hypertrophy, visually estimated ejection fraction 55% with no regional wall motion abnormality, there is no left ventricular thrombus seen. Electronically signed by : Sabino Mckinney, 11/05/2020 13:40:14
== END ==
PROVIDERS: PCP Physician Assistant; Visit Provider Nurse Practitioner Family
DX: R06.02 Shortness of breath (principal)
CPT/HCPCS: 93308; Q9957

== ENCOUNTER → 2020-11-16 14:09 | Outpatient (CLI) | payer MEDICARE, MEDICAID, SELFPAY ==
[2020-11-16 14:23] LABS: Alanine Aminotransferase 25 U/L (12-78); Albumin Level 3.9 g/dl (3.5-5.0); Albumin/Globulin Ratio 1.3 (1.1-1.8); Alkaline Phosphatase 94 U/L (38-126); Anion Gap 12.4 mEq/L (5-15); Aspartate Amino Transferase 31 U/L (14-36); Bilirubin,Total 0.4 mg/dl (0.2-1.3); Blood Urea Nitrogen 24 mg/dl (7-17); Calcium 9.7 mg/dl (8.4-10.2); Carbon Dioxide 33 mmol/L (22.0-30.0); Chloride 99 mmol/L (98-107); Chol/HDL Ratio 3.7 (1-3.5); Cholesterol 116 mg/dl (140-200); Estimated Glomerular Filt Rate 82 ml/min (>60); GFR (African American) 100 ML/MIN (>60); Globulin 2.9 g/dL (1.3-3.2); Glucose 239 mg/dl (74-100); HDL Cholesterol 31 mg/dl (40-60); Potassium 4.4 mmoL/L (3.5-5.1); Sodium 140 mmol/L (136-145); Total Protein,Serum 6.8 g/dl (6.3-8.2); Triglycerides 229 mg/dl (30-150); VLDL Cholesterol 46 mg/dL (0-40)
[2020-11-16 14:35] LABS: Direct LDL Cholesterol 47.58 mg/dL (100-129)
[2020-11-16 14:40] LABS: Free T4 (Free Thyroxine) 1.22 ng/dl (0.78-2.19)
[2020-11-16 14:41] LABS: 25-OH Vitamin D, Total 32.4 ng/mL (30-100)
[2020-11-16 14:51] LABS: Basophils # 0.1 K/mm3 (0-0.2); Basophils % 0.5 % (0.1-2.0); Eosinophils # 0.3 K/mm3 (0.0-0.4); Eosinophils % 3.3 % (0.1-12.0); Hematocrit 38.5 % (37.0-47.0); Hemoglobin 12.1 g/dL (12.2-16.2); Lymphocytes # 2.2 K/mm3 (0.7-4.5); Lymphocytes % 22.8 % (10-50); Mean Corpuscular HGB Conc 31.5 g/dL (31.8-35.4); Mean Corpuscular Hemoglobin 26.3 pg (27.0-31.2); Mean Corpuscular Volume 83.6 fl (81-99); Monocytes # 0.5 K/mm3 (0.1-1.0); Monocytes % 5.5 % (1.7-9.3); Neutrophils # 6.5 K/mm3 (1.8-7.8); Neutrophils % 67.9 % (37.0-80.0); Platelet Count 277 K/mm3 (142-424); Red Blood Count 4.61 M/mm3 (4.20-5.40); Red Cell Distribution Width 16.1 % (11.5-17.5); White Blood Count 9.6 K/mm3 (4.8-10.8)
[2020-11-16 14:54] LABS: Thyroid Stimulating Hormone 3.52 uIU/mL (0.465-4.68)
[2020-11-16 15:50] LABS: Hemoglobin A1C 7.6 % (4.0-6.0)
== END ==
PROVIDERS: Visit Provider Physician Assistant
DX: R07.89 Other chest pain; E11.9 Type 2 diabetes mellitus without complications; E55.9 Vitamin D deficiency, unspecified; E78.5 Hyperlipidemia, unspecified; G89.29 Other chronic pain; M54.5 Low back pain; R53.83 Other fatigue; R60.9 Edema, unspecified; Z79.4 Long term (current) use of insulin
CPT/HCPCS: 80053; 80061; 82306; 83036; 84439; 84443; 85025

== ENCOUNTER → 2020-11-18 08:50 | Outpatient (CLI) | payer MEDICARE, MEDICAID, SELFPAY ==
--- NOTE | 2020-11-18 08:57 | XR_ITS ---
PROCEDURE: XR SHOULDER RT MIN 2V CLINICAL INDICATION: RT shoulder pain COMPARISON: CR XR SHOULDER LT MIN 2V from 08/31/2019 FINDINGS: No fracture or dislocation. No lytic or blastic change. There is normal mineralization. Osteoarthritic changes are present at the acromioclavicular and glenohumeral joint no significant subacromial stenosis. Other findings:None. IMPRESSION: Mild osteoarthritis acromioclavicular and glenohumeral joint Dictated by: Tru Peres MD 11/18/2020 09:45 Tru Peres MD in [facility] 11/18/2020 09:45
== END ==
PROVIDERS: PCP Physician Assistant; Visit Provider Orthopaedic Surgery
DX: M25.511 Pain in right shoulder (principal)
CPT/HCPCS: 73030

== ENCOUNTER → 2020-12-03 14:50 | Outpatient (CLI) | payer MEDICARE, MEDICAID, SELFPAY ==
--- NOTE | 2020-12-03 14:57 | CT_ITS ---
PROCEDURE: CT HIGH RESOLUTION CHEST CLINICAL HISTORY: restrictive lung disease COMPARISON: CT CT ANGIO CHEST from 08/10/2020 TECHNIQUE: Axial images obtained with sagittal and coronal reformats. All CT scans at the facility use one or more dose reduction, viz: automated exposure control, ma/kV adjustment per patient size (including targeted exams where dose is matched to indication, i.e. head), or iterative reconstruction technique. FINDINGS: No lobar consolidation, pleural effusions or pneumothorax. The central tracheobronchial tree is patent. There is minor ground-glass densities noted in the lingula and tree-in-bud appearance in the left lower lobe are again noted, may represent infection/inflammation. Minor atelectasis in the left lower lobe. No significant interstitial reticulations. Previously noted multifocal ground-glass densities demonstrate interval resolution. The central tracheobronchial tree is patent. Nodule in the left upper lobe measuring 4 millimeters. No other suspicious lung nodules. Raise left hemidiaphragm is noted. Mild cardiomegaly is noted. No evidence of pericardial effusions. Atherosclerotic vascular calcification of the thoracic aorta and the coronary arteries are noted. Median sternotomy and coronary arterial grafts are noted. No significant mediastinal or hilar adenopathy. Cholecystectomy noted. Bulky left adrenal gland, likely represents adrenal hyperplasia. No focal nodules are noted. Otherwise the visualized upper abdominal solid organs are unremarkable within the limitations of unenhanced study. Kyphotic angulation of the thoracic spine. Multilevel degenerative changes are noted with loss of disc height and anterior osteophyte formation. IMPRESSION: No evidence of interstitial lung disease. Minor tree-in-bud appearance and atelectasis in the lingula and left lower lobe. Interval resolution of multiple focal ground-glass densities compared to the prior study. 4 mm nodule in the left upper lobe. No follow-up is needed as per modified Fleischner criteria. Dictated by: Aliya Mahajan 12/03/2020 16:21 Aliya Mahajan in [facility] 12/03/2020 16:21
== END ==
PROVIDERS: PCP Physician Assistant; Visit Provider Internal Medicine Pulmonary Disease
DX: J98.4 Other disorders of lung (principal); Z87.891 Personal history of nicotine dependence
CPT/HCPCS: 71250

== ENCOUNTER → 2020-12-04 11:40 | Outpatient (CLI) | payer MEDICARE, MEDICAID, SELFPAY ==
[2020-12-04 12:44] LABS: Uric Acid 9.1 mg/dl (2.5-6.2)
[2020-12-04 12:50] LABS: C-Reactive Protein 10.7 mg/L (0-4)
[2020-12-04 12:54] LABS: Erythrocyte Sedimentation Rate 108 mm/hr (0-30)
[2020-12-06 10:44] LABS: RA Latex Turbid. <10.0 IU/mL (0.0-13.9)
[2020-12-07 17:17] LABS: Cytoplasmic (C-ANCA) <1:20 titer (Neg:<1:20)
[2020-12-08 10:37] LABS: Anti-Cyclic Citrullinated Pept 3 units (0-19); Antinuclear Antibodies, IFA Negative (.); Perinuclear (P-ANCA) <1:20 titer (Neg:<1:20)
[2020-12-19 11:43] LABS: Antinuclear Antibodies (ANA) NEGATIVE
== END ==
PROVIDERS: Visit Provider Internal Medicine Pulmonary Disease
DX: J84.9 Interstitial pulmonary disease, unspecified (principal); J98.4 Other disorders of lung; R06.00 Dyspnea, unspecified; Z87.891 Personal history of nicotine dependence
CPT/HCPCS: 36415; 84550; 85651; 86038; 86140; 86200; 86225; 86235; 86256; 86431

== ENCOUNTER → 2021-01-04 20:01 | Outpatient (CLI) | payer MEDICARE, MEDICAID, SELFPAY | PROVIDERS: PCP Physician Assistant; Visit Provider Nurse Practitioner Family | DX: G47.33 Obstructive sleep apnea (adult) (pediatric) (principal) | CPT/HCPCS: 95811 ==

== ENCOUNTER → 2021-02-10 13:11 | Outpatient (CLI) | payer MEDICARE, MEDICAID, SELFPAY ==
[2021-02-10 14:34] LABS: Basophils # 0.1 K/mm3 (0-0.2); Basophils % 0.8 % (0.1-2.0); Eosinophils # 0.3 K/mm3 (0.0-0.4); Hematocrit 37.9 % (37.0-47.0); Hemoglobin 12.3 g/dL (12.2-16.2); Lymphocytes # 2.2 K/mm3 (0.7-4.5); Lymphocytes % 20.7 % (10-50); Mean Corpuscular HGB Conc 32.4 g/dL (31.8-35.4); Mean Corpuscular Hemoglobin 25.6 pg (27.0-31.2); Mean Corpuscular Volume 78.9 fl (81-99); Mean Platelet Volume 8.1 fl (7.4-10.4); Monocytes # 0.4 K/mm3 (0.1-1.0); Monocytes % 3.4 % (1.7-9.3); Neutrophils # 7.5 K/mm3 (1.8-7.8); Neutrophils % 72.1 % (37.0-80.0); Platelet Count 288 K/mm3 (142-424); Red Blood Count 4.81 M/mm3 (4.20-5.40); Red Cell Distribution Width 15.8 % (11.5-17.5); White Blood Count 10.4 K/mm3 (4.8-10.8)
[2021-02-10 14:35] LABS: Alanine Aminotransferase 21 U/L (12-78); Albumin Level 3.8 g/dl (3.5-5.0); Albumin/Globulin Ratio 1.3 (1.1-1.8); Alkaline Phosphatase 94 U/L (38-126); Aspartate Amino Transferase 25 U/L (14-36); Bilirubin,Total 0.4 mg/dl (0.2-1.3); Blood Urea Nitrogen 19 mg/dl (7-17); Calcium 9.4 mg/dl (8.4-10.2); Carbon Dioxide 32 mmol/L (22.0-30.0); Chloride 104 mmol/L (98-107); Chol/HDL Ratio 3.9 (1-3.5); Cholesterol 105 mg/dl (140-200); Estimated Glomerular Filt Rate 82 ml/min (>60); GFR (African American) 100 ML/MIN (>60); Globulin 2.9 g/dL (1.3-3.2); Glucose 73 mg/dl (74-100); HDL Cholesterol 27 mg/dl (40-60); Sodium 146 mmol/L (136-145); Total Protein,Serum 6.7 g/dl (6.3-8.2); Triglycerides 165 mg/dl (30-150); VLDL Cholesterol 33 mg/dL (0-40)
[2021-02-10 14:44] LABS: Hemoglobin A1C 6.2 % (4.0-6.0)
[2021-02-10 14:45] LABS: Direct LDL Cholesterol 43.37 mg/dL (100-129)
[2021-02-10 15:05] LABS: Thyroid Stimulating Hormone 1.55 uIU/mL (0.465-4.68)
[2021-02-10 15:14] LABS: Free T4 (Free Thyroxine) 1.05 ng/dl (0.78-2.19)
== END ==
PROVIDERS: Visit Provider Physician Assistant
DX: E03.9 Hypothyroidism, unspecified (principal); E11.9 Type 2 diabetes mellitus without complications; E55.9 Vitamin D deficiency, unspecified; E78.5 Hyperlipidemia, unspecified; I10 Essential (primary) hypertension; R53.83 Other fatigue; G89.29 Other chronic pain; M54.5 Low back pain; R07.89 Other chest pain; Z79.4 Long term (current) use of insulin
CPT/HCPCS: 80053; 80061; 82306; 83036; 84439; 84443; 85025

== ENCOUNTER 2021-04-02 17:51 | Observation (INO) | payer MEDICARE, MEDICAID, SELFPAY ==
[2021-04-02 17:52] VITALS: BP 141/78; PULSE 74; RESP 30; TEMP 37.9; O2SAT 97; BMI 45.4
--- NOTE | 2021-04-02 19:07 | ECG_ITS ---
APPROVED REPORT Exam: Resting ECG HR:66 bpm ECG Measurements Heart Rate 66 AXES SD 216 P 2 QRSd 90 QRS 24 QT 396 T 53 QTc 415 Conclusion Sinus rhythm with 1st degree AV block with premature atrial complexes Otherwise normal ECG Electronically signed by : Andrade Pack MD 04/04/2021 16:07:48
--- NOTE | 2021-04-02 19:17 | XR_ITS ---
PROCEDURE INFORMATION: Exam: XR Chest Exam date and time: 04/02/2021 7:17 PM Age: 70 years old Clinical indication: On breathing; Patient HX: Chest pain TECHNIQUE: Imaging protocol: XR of the chest. Views: 1 view. COMPARISON: CT HIGH RESOLUTION CHEST 12/03/2020 3:28 PM FINDINGS: Lungs: No focal consolidation. Pleural spaces: Unremarkable. No pleural effusion. No pneumothorax. Heart/Mediastinum: Heart is enlarged. Bones/joints: Unremarkable. Soft tissues: Habitus and portable technique limit exam. IMPRESSION: Limited study reveals no acute disease
[2021-04-02 19:22] LABS: Microscopic, Urine URINE MICROSCOPIC (MICROSCOPIC)
[2021-04-02 19:23] LABS: Appearance,Urine CLEAR (Clear); Bilirubin,Urine Negative (Negative); Blood, Urine 1+ (Negative); Color,Urine YELLOW (Yellow); Glucose,Urine (UA) Negative (Negative); Ketones,Urine Negative (Negative); Leukocyte Esterase,Urine 1+ (Negative); Nitrate,Urine Negative (Negative); PH,Urine 5.5 (5.0-8.5); Protein,Urine TRACE (Negative); Urobilinogen,Urine 0.2 EU/dl (0.2)
[2021-04-02 19:27] LABS: Basophils % 0.3 % (0.1-2.0); Eosinophils # 0.3 K/mm3 (0.0-0.4); Eosinophils % 2.7 % (0.1-12.0); Hematocrit 40.1 % (37.0-47.0); Hemoglobin 12.7 g/dL (12.2-16.2); Lymphocytes # 1.8 K/mm3 (0.7-4.5); Lymphocytes % 17.6 % (10-50); Mean Corpuscular HGB Conc 31.7 g/dL (31.8-35.4); Mean Corpuscular Hemoglobin 25.7 pg (27.0-31.2); Mean Platelet Volume 7.3 fl (7.4-10.4); Monocytes # 0.5 K/mm3 (0.1-1.0); Neutrophils # 7.5 K/mm3 (1.8-7.8); Neutrophils % 74.3 % (37.0-80.0); Platelet Count 278 K/mm3 (142-424); Red Blood Count 4.95 M/mm3 (4.20-5.40)
[2021-04-02 19:28] LABS: Coronavirus 19, PCR Not Detected (NotDetected); Influenza A, PCR Not Detected (NotDetected); Influenza B, PCR Not Detected (NotDetected)
[2021-04-02 19:30] VITALS: BP 151/88; PULSE 95; RESP 18; O2SAT 98
[2021-04-02 19:34] LABS: Amylase 47 U/L (30-110); Anion Gap 13.1 mEq/L (5-15); Blood Urea Nitrogen 20 mg/dl (7-17); Calcium 9.2 mg/dl (8.4-10.2); Carbon Dioxide 31 mmol/L (22.0-30.0); Chloride 99 mmol/L (98-107); Creatinine Clearance Estimated 46 mL/min (50-200); Estimated Glomerular Filt Rate 82 ml/min (>60); GFR (African American) 100 ML/MIN (>60); Glucose 117 mg/dl (74-100); Potassium 4.1 mmoL/L (3.5-5.1); Sodium 139 mmol/L (136-145)
[2021-04-02 19:50] LABS: Troponin I < 0.01 ng/ml (0.00-0.034)
[2021-04-02 19:54] LABS: Bacteria,Urine 1+ /lpf
[2021-04-02 19:55] LABS: Lactic Acid 1.1 mmol/L (0.7-2.1)
[2021-04-02 20:00] VITALS: BP 160/72; PULSE 68; RESP 22; O2SAT 99
[2021-04-02 20:08] LABS: Alanine Aminotransferase 17 U/L (12-78); Albumin Level 3.9 g/dl (3.5-5.0); Alkaline Phosphatase 98 U/L (38-126); Aspartate Amino Transferase 24 U/L (14-36); Bilirubin,Direct 0.2 mg/dl (0.0-0.4); Bilirubin,Indirect 0.2 mg/dL (0.0-0.9); Bilirubin,Total 0.4 mg/dl (0.2-1.3); Bilirubin,Unconjugated 0.2 mg/dL (0.0-1.1); Lipase 37 U/L (23-300); Total Protein,Serum 7.8 g/dl (6.3-8.2)
--- NOTE | 2021-04-02 20:08 | HMH.EDARPALP ---
ED Disposition Clinical Impression: IDDM (insulin dependent diabetes mellitus), Morbid obesity with BMI of 40.0-44.9, adult, Hx of CABG, SIRS (systemic inflammatory response syndrome) UTI (urinary tract infection) Qualifiers: Urinary tract infection type: site unspecified Hematuria presence: without hematuria Qualified Code(s): N39.0 - Urinary tract infection, site not specified Hypothyroidism Qualifiers: Hypothyroidism type: acquired Qualified Code(s): E03.9 - Hypothyroidism, unspecified CHF (congestive heart failure) Qualifiers: Heart failure type: unspecified Heart failure chronicity: acute on chronic Qualified Code(s): I50.9 - Heart failure, unspecified Disposition: Admitted as Observation Condition on Discharge: Good Referrals: Hilary Bagley PA [Primary Care Provider] - - Critical Care Critical Care Time: No Attestation: On 04/02/21, the high probability of a clinically significant, sudden or life threatening deterioration of the following system(s) required my full and direct attention, intervention and personal management. The time I documented below is in addition to time spent performing reported procedures but includes the following listed in this critical care notation. Medical Decision Making - Medical Records Medical records reviewed: Yes: I reviewed the patient's medical records. - Sam Inquiry Pt receiving controlled substance: No Vital Signs: 04/02/21 17:52 Temperature 100.3 F H Temperature Source Oral Pulse Rate [Radial] 74 Respiratory Rate 30 H Blood Pressure [Right Arm] 141/78 H Blood Pressure Mean [Right Arm] 99 Blood Pressure Position [Right Arm] Sitting 02 Sat by Pulse Oximetry 97 Oxygen Delivery Method Nasal Cannula Oxygen Flow Rate (LPM) 2.5 - Lab Data Lab results reviewed: Yes: I reviewed the patient's lab results. Lab Results 04/02/21 19:04: WBC 10.0, RBC 4.95, Hgb 12.7, Hct 40.1, MCV 81.0, MCH 25.7 L, MCHC 31.7 L, RDW 16.0, Plt Count 278, MPV 7.3 L, Neut % (Auto) 74.3, Lymph % (Auto) 17.6, Calvert % (Auto) 5.0, Eos % (Auto) 2.7, Baso % (Auto) 0.3, Neut # (Auto) 7.5, Lymph # (Auto) 1.8, Calvert # (Auto) 0.5, Eos # (Auto) 0.3, Baso # (Auto) 0.0 04/02/21 19:04: Sodium 139, Potassium 4.1, Chloride 99, Carbon Dioxide 31 H, Anion Gap 13.1, BUN 20 H, Creatinine 0.70, Estimated Creat Clear 46, Estimated GFR 82, Est GFR ( Amer) 100, Glucose 117 H, Calcium 9.2, Troponin I < 0.01, Amylase 47 04/02/21 19:04: Urine Color Yellow, Urine Appearance Clear, Urine pH 5.5, Ur Specific Sparks 1.020, Urine Protein Trace, Urine Glucose (UA) Negative, Urine Ketones Negative, Urine Blood 1+, Urine Nitrate Negative, Urine Bilirubin Negative, Urine Urobilinogen 0.2, Ur Leukocyte Esterase 1+ A, Urine RBC 10-20, Urine WBC 10-20, Ur Squamous Epith Cells 5-10, Urine Bacteria 1+ 04/02/21 19:04: Total Bilirubin 0.4, Direct Bilirubin 0.2, Conjugated Bilirubin 0.0, Indirect Bilirubin 0.2, Unconjugated Bilirubin 0.2, AST 24, ALT 17, Alkaline Phosphatase 98, Total Protein 7.8, Albumin 3.9, Lipase 37 04/02/21 19:04: SARS-CoV-2 (PCR) Not detected, Influenza A Untype (PCR) Not detected, Influenza Type B (PCR) Not detected 04/02/21 19:04: Lactate 1.1 04/02/21 19:04: Procalcitonin 0.060 04/02/21 19:04: TSH 1.17, Thyroxine (T4) 10.0 04/02/21 19:04: NT-Pro-B Natriuret Pep 211 H Result diagrams: 04/02/21 19:04 04/02/21 19:04 Orders (Tests/Meds): ED MEDICATIONS Generic Name Dose Route Start Last Admin Trade Name Freq PRN Reason Stop Dose Admin Ceftriaxone Sodium 1 gm/ 50 mls @ 100 mls/hr 04/02/21 20:30 04/02/21 20:49 Sodium Chloride IV 04/16/21 20:29 100 mls/hr Q24H BRYCE Administration Discontinued Medications Generic Name Dose Route Start Last Admin Trade Name Freq PRN Reason Stop Dose Admin Furosemide 40 mg 04/02/21 20:17 04/02/21 20:49 Furosemide 40mg/4ml Vial IV 04/02/21 20:18 40 mg ONCE ONE Administration ORDERS Category Date Time Status Troponin I Q3H Lab 09
--- NOTE | 2021-04-02 20:15 | PC.NURSE ---
ATTEMPT TO CALL HS FOR BED ASSIGNMENT. WAS ASKED TO CALL CHARGE. CALLED CHARGE AND SHE WILL CALL BACK.
[2021-04-02 20:30] VITALS: BP 132/66; PULSE 93; RESP 19; O2SAT 100
[2021-04-02 20:37] LABS: NT Pro Brain Natriuretic Pep. 211 pg/mL (0-125)
--- NOTE | 2021-04-02 20:45 | PC.NURSE ---
BED ASSIGNMENT GIVEN
[2021-04-02 20:59] LABS: Thyroid Stimulating Hormone 1.17 uIU/mL (0.465-4.68)
[2021-04-02 21:05] VITALS: BP 142/61; PULSE 68; RESP 25; O2SAT 99
[2021-04-02 22:48] VITALS: BMI 44.9
[2021-04-02 23:00] VITALS: BP 112/70; PULSE 73; RESP 17; TEMP 37.5; O2SAT 98
--- NOTE | 2021-04-02 23:21 | PC.NURSE ---
PT ARRIVED TO FLOOR VIA W/C FROM ED W/STAFF AT [id number]
[2021-04-02 23:25] LABS: Troponin I < 0.01 ng/ml (0.00-0.034)
[2021-04-03] VITALS (8 sets, daily range): BP systolic 139–167; BP diastolic 57–70; PULSE 60–80; RESP 16–22; TEMP 36.4–36.9; O2SAT 95–99
[2021-04-03 01:53] LABS: Troponin I < 0.01 ng/ml (0.00-0.034)
--- NOTE | 2021-04-03 04:22 | PC.NURSE ---
Patient A&Ox4. No acute changes noted since arriving to the floor, call light within reach, VSS, will continue to monitor.
[2021-04-03 07:05] LABS: POC Glucose,Bedside 126 (70-110)
[2021-04-03 07:14] LABS: Basophils % 0.4 % (0.1-2.0); Eosinophils # 0.2 K/mm3 (0.0-0.4); Eosinophils % 3.1 % (0.1-12.0); Hematocrit 39.8 % (37.0-47.0); Hemoglobin 12.3 g/dL (12.2-16.2); Lymphocytes # 1.7 K/mm3 (0.7-4.5); Lymphocytes % 24.5 % (10-50); Mean Corpuscular Hemoglobin 25.2 pg (27.0-31.2); Mean Corpuscular Volume 81.3 fl (81-99); Mean Platelet Volume 6.5 fl (7.4-10.4); Monocytes # 0.6 K/mm3 (0.1-1.0); Monocytes % 8.1 % (1.7-9.3); Neutrophils # 4.4 K/mm3 (1.8-7.8); Neutrophils % 63.9 % (37.0-80.0); Platelet Count 236 K/mm3 (142-424); Red Cell Distribution Width 15.8 % (11.5-17.5); White Blood Count 6.9 K/mm3 (4.8-10.8)
[2021-04-03 07:27] LABS: Anion Gap 12.5 mEq/L (5-15); Blood Urea Nitrogen 16 mg/dl (7-17); Calcium 9.2 mg/dl (8.4-10.2); Carbon Dioxide 32 mmol/L (22.0-30.0); Chloride 101 mmol/L (98-107); Creatinine Clearance Estimated 45 mL/min (50-200); Estimated Glomerular Filt Rate 99 ml/min (>60); GFR (African American) 119 ML/MIN (>60); Glucose 128 mg/dl (74-100); Magnesium 1.8 mg/dl (1.6-2.3); Potassium 3.5 mmoL/L (3.5-5.1); Sodium 142 mmol/L (136-145)
--- NOTE | 2021-04-03 09:25 | HMH.HP ---
*Admission Date: 04/02/21 *Chief complaint: not feeling well *History of present illness: this patient presented to the ed last pm with not feeling well-c/o of not feeling well over the last few days with sob at times and occ chest pain with weakness and dec po intake - pt with hx of diabetes and chf - pt was found to have uti and admitted for ivf and abx [facility] History I have reviewed the patient's past medical history: Yes Medical History: Reports:: Anxiety, Asthma, Cancer, Congestive Heart Failure, Chronic Obstructive Pulmonary Disease (COPD), Coronary Artery Disease, Depression, Diabetes Mellitus Type 2, Gastroesophageal Reflux Disease(GERD), Home Oxygen, Hyperlipidemia, Hypertension, Lung Disease, Myocardial Infarction, Osteoporosis, Palpitations Denies:: Diabetes Mellitus Type 1, Internal Pacemaker, MRSA, Seizures *Have you ever received a pneumonia vaccine?: Yes *Have you received a flu vaccine this season?: Yes Other Medical History: Reports: Arthritis, Fibromyalgia, Hypothyroidism, Osteoporosis, Thyroid Disease. Denies: Blood Transfusion Reaction Laterality Cases: Right: Lumpectomy Other Surgeries: Yes: Appendectomy, CABG, Cardiac Catheterization, Cardiac Surgery, Cholecystectomy, Colonoscopy, Hysterectomy-Total, Hysterectomy-Partial, Tubal Ligation, Other. No: Pacemaker Amputation: No Fractures: No - *Social History Last grade of school completed: 7th or 8th Smoking Status: Former smoker Tobacco Type: cigarettes # Packs/Day (cigarettes): 1 #Yrs smoked (if former smoker): 40 Alcohol Intake: never Alcohol Intake Frequency:: other Substance Use Type: denies use *Occupational Status:: retired, disabled Housing: house Household Members: children *Travel in the last 8 weeks: None - Psychiatric History Pschychiatric History:: Reports:: Anxiety, Depression Family Hx:: Cancer, Diabetes, Heart Attack, Hyperlipidemia, Hypertension, Stroke, Thyroid Disorder Review of Systems - Review of Systems Review of systems:: pertinent systems reviewed and negative unless documented below - Constitutional Reports weakness, Denies fever(s) - Eyes Denies change in vision - ENT Reports dry mouth - *Cardiovascular Reports irregular heart rhythm, Denies chest pain, Denies shortness of breath - *Respiratory Reports shortness of breath, Denies cough, Denies coughing up blood - *Gastrointestinal Reports abdominal pain, Reports nausea, Reports vomiting - *Genitourinary Denies blood in urine - *Musculoskeletal Denies joint pain - Integumentary/Breasts Denies rash - *Neurologic Denies abnormal speech, Denies dizziness, Denies localized weakness, Denies tingling/numbness/burning sensations, Denies seizure-like activity - Psychiatric Denies confusion Meds Home Medications Medication Instructions Recorded Confirmed Type Hydrocodone/Acetaminophen 1 each PO TIDP PRN 03/02/18 04/03/21 History [Hydrocodone-Acetamin 5-325 mg] Cholecalciferol (Vitamin D3) 1,000 unit PO DAILY 08/11/20 04/03/21 History [Vitamin D3 1,000 Unit Cap] Insulin Detemir [Levemir FlexTouch 96 unit SQ BID 10/28/20 04/03/21 History U-100 Insuln] aspirin 81 mg tablet,delayed 81 mg PO DAILY 11/18/20 04/03/21 History release ascorbate calcium (vitamin C) 500 500 mg PO DAILY 11/30/20 04/03/21 History mg tablet albuterol sulfate 1.25 mg/3 mL 1.25 mg INHALATION QID PRN #90 ml 12/07/20 04/03/21 Rx solution for nebulization albuterol sulfate 90 mcg/actuation 2 puff INHALATION Q6 #6.7 g 12/07/20 04/03/21 Rx aerosol inhaler ergocalciferol (vitamin D2) 1,250 1,250 mcg PO WEEKLY #10 cap 12/07/20 04/02/21 Rx mcg (50,000 unit) capsule furosemide 40 mg tablet 40 mg PO BID #60 tab 12/16/20 04/03/21 Rx gabapentin 800 mg tablet 800 mg PO QID 30 Days #120 tab 03/23/21 04/03/21 Rx Buspirone HCl [Buspar 5mg tablet] 5 mg PO HS 04/02/21 04/03/21 History Citalopram Hydrobromide [Celexa] 40 mg PO DAILY 04/02/21 04/03/21 History Clopidogrel Bisulfate [P
[2021-04-03 12:35] LABS: POC Glucose,Bedside 245 (70-110)
--- NOTE | 2021-04-03 14:50 | HMH.PHAINT ---
MEDICATION RECONCILIATION COMPLETE USING LIST FROM MD OFFICE AND EXTERNAL PHARMACY FILL HISTORY
--- NOTE | 2021-04-03 14:50 | HMH.PHAVTE ---
[facility] Pharmacy VTE Monitoring - Patient Demographics Admission date: 04/02/21 Report Date: 04/03/21 Time: 14:51 Allergies/Adverse Reactions: Patient Allergies Iodinated Contrast Media [Iodinated Contrast Media - IV Dye] Allergy (Intermediate, Verified 03/01/21 15:43) Hives celecoxib [From CELEBREX] Allergy (Unknown, Verified 03/01/21 15:43) SWELLING ibuprofen [IBUPROFEN] Allergy (Unknown, Verified 03/01/21 15:43) S-BLISTERING WELTS meloxicam [MELOXICAM] Allergy (Unknown, Verified 03/01/21 15:43) S-BLISTERING WELTS Penicillins [PENICILLINS] Allergy (Unknown, Verified 03/01/21 15:43) I-HIVES rofecoxib [From VIOXX] Allergy (Unknown, Verified 03/01/21 15:43) I-HIVES Height: 1.65 m Weight: 122.47 kg Patient Problems: Current Active Problems UTI (urinary tract infection) (Acute) SIRS (systemic inflammatory response syndrome) (Acute) Hx of CABG (Chronic) Morbid obesity with BMI of 40.0-44.9, adult (Acute) IDDM (insulin dependent diabetes mellitus) (Chronic) CHF (congestive heart failure) (Chronic) Hypothyroidism (Chronic) - VTE Risk Labs: VTE Related Lab Results Hgb 12.3 g/dL (12.2-16.2) 04/03/21 06:14 Hct 39.8 % (37.0-47.0) 04/03/21 06:14 Plt Count 236 K/mm3 (142-424) 04/03/21 06:14 BUN 16 mg/dl (7-17) 04/03/21 06:14 Creatinine 0.60 mg/dl (0.52-1.04) 04/03/21 06:14 Estimated Creat Clear 45 mL/min (50-200) 04/03/21 06:14 Was VTE Risk Assessment Performed: Yes VTE Score: 9 VTE Risk Level: Moderate Risk - Prophylaxis VTE Prophylaxis Ordered?: Yes Types of VTE Prophylaxis: TEDS Knee High
--- NOTE | 2021-04-03 16:07 | PC.NURSE ---
Pt is alert and oriented x3. Crackles noted to lung bases and diminished t/o. She is currently on 3L NC w/O2 sats in the upper 90's. She was up to the chair approx 2/3 of the shift and tolerated well. She has been NSR on telemetry. She has used a BSC w/assist x1. Appetite fair w/ her eating approx 50% of meals. Glucose elevated in to the 200's, covered w/SSI per sep. She reported a headache before lunch, tylenol administered w/relief noted on reassessment. She has no questions or concerns at this time.
[2021-04-03 17:18] LABS: POC Glucose,Bedside 220 (70-110)
[2021-04-04] VITALS: BP 164/77; PULSE 57; PULSE 60; RESP 20; TEMP 36.5; O2SAT 100
[2021-04-04 00:42] LABS: POC Glucose,Bedside 255 (70-110)
--- NOTE | 2021-04-04 03:21 | PC.NURSE ---
A&OX4. TOLERATING 3LNC WELL. PT IS VERY PLEASANT. PT IS A X1 ASSIST TO AND FROM BEDSIDE COMMODE. PT HAS HAD NO C/O THUS FAR THIS SHIFT. SLEEPING MAJORITY OF NIGHT. VSS WILL CONTINUE TO MONITOR.
[2021-04-04 04:00] VITALS: BP 171/71; PULSE 60; RESP 17; TEMP 37.1; O2SAT 98
[2021-04-04 05:00] VITALS: BMI 44.9
[2021-04-04 08:00] VITALS: BP 159/72; PULSE 55; PULSE 60; RESP 18; TEMP 36.8; O2SAT 100
--- NOTE | 2021-04-04 10:41 | HMH.DCSUM ---
General - General Admission date:: 04/02/21 Discharge date: 04/04/21 HPI HPI: this patient presented to the ed last pm with not feeling well-c/o of not feeling well over the last few days with sob at times and occ chest pain with weakness and dec po intake - pt with hx of diabetes and chf - pt was found to have uti and admitted for ivf and abx Hospital Course Hospital Course: The patient had a fairly uneventful course. She was started on IV Rocephin. Urine culture is pending at the time of discharge, there is no overt pathogen but we will send her out on p.o. antibiotics. Patient wears oxygen at home. Patient has chronic pain, chronic discomfort. She did tolerate being up in the chair for most of the day yesterday and is feeling pretty good on the morning of her discharge Objective Vital signs: Temp Pulse Resp BP Pulse Ox 98.3 F 55 L 18 159/72 H 100 04/04/21 08:00 04/04/21 08:00 04/04/21 08:00 04/04/21 08:00 04/04/21 08:00 no acute distress, obese - *Routine HEENT Exam Head: Present: normocephalic Eye: Present: EOMI, PERRL ENT: Present: mucous membranes moist - *Routine Neck Exam Present: supple - *Routine Respiratory Exam Present: CTA bilaterally - *Routine Cardiovascular Exam Present: RRR - *Routine Abdominal Exam Present: soft, normoactive bowel sounds. Absent: tenderness - *Routine Extremities Exam Absent: cyanosis, clubbing, edema - *Routine Skin Exam Present: warm. Absent: rash Results Labs on day of discharge: Labs from last 24 hours 04/03/21 04/03/21 04/03/21 20:09 16:23 10:42 POC Glucose 255 H 220 H 245 H Preliminary micro results at discharge 04/02/21 19:04 Urine Culture - Preliminary Urine,Clean Catch DS: Diagnosis - Discharge Diagnosis (1) Obesity Status: Chronic (2) UTI (urinary tract infection) Status: Acute (3) SIRS (systemic inflammatory response syndrome) Status: Acute (4) Lumbar disc disease Status: Chronic (5) Biventricular CHF (congestive heart failure) Status: Chronic (6) Hx of CABG Status: Chronic (7) IDDM (insulin dependent diabetes mellitus) Status: Chronic (8) GERD (gastroesophageal reflux disease) Status: Chronic (9) Coronary artery disease Status: Chronic (10) Hyperlipidemia Status: Chronic (11) Hypertension Status: Chronic Discharge Plan - Patient Discharge Instructions ACTIVITY: Ambulate as tolerated DIET: continue same diet, low salt diet Patient Instructions: Congestive Heart Failure (Alternative Therapy), DI for Heart Failure - Follow up Plan Follow up with: Hilary Bagley PA [Primary Care Provider] - 2 days Disposition: Home, Self-Care Condition at discharge:: Improved Home Medications: Home Medications Medication Instructions Recorded Confirmed Type Hydrocodone/Acetaminophen 1 each PO TIDP PRN 03/02/18 04/03/21 History [Hydrocodone-Acetamin 5-325 mg] Cholecalciferol (Vitamin D3) 1,000 unit PO DAILY 08/11/20 04/03/21 History [Vitamin D3 1,000 Unit Cap] Insulin Detemir [Levemir FlexTouch 96 unit SQ BID 10/28/20 04/03/21 History U-100 Insuln] aspirin 81 mg tablet,delayed 81 mg PO DAILY 11/18/20 04/03/21 History release ascorbate calcium (vitamin C) 500 500 mg PO DAILY 11/30/20 04/03/21 History mg tablet albuterol sulfate 1.25 mg/3 mL 1.25 mg INHALATION QID PRN #90 ml 12/07/20 04/03/21 Rx solution for nebulization albuterol sulfate 90 mcg/actuation 2 puff INHALATION Q6 #6.7 g 12/07/20 04/03/21 Rx aerosol inhaler ergocalciferol (vitamin D2) 1,250 1,250 mcg PO WEEKLY #10 cap 12/07/20 04/02/21 Rx mcg (50,000 unit) capsule furosemide 40 mg tablet 40 mg PO BID #60 tab 12/16/20 04/03/21 Rx gabapentin 800 mg tablet 800 mg PO QID 30 Days #120 tab 03/23/21 04/03/21 Rx Buspirone HCl [Buspar 5mg tablet] 5 mg PO HS 04/02/21 04/03/21 History Citalopram Hydrobromide [Celexa] 40 mg PO DAILY 04/02/21
[2021-04-04 10:46] VITALS: BP 156/72; PULSE 59; RESP 18; TEMP 36.8; O2SAT 100
[2021-04-04 19:55] LABS: POC Glucose,Bedside 194 (70-110)
== END 2021-04-04 12:35 | disposition home or self-care (01) ==
LOC: ER 22:15 → 2ND 23:36
PROVIDERS: Emergency Medicine; Admitting Provider Family Medicine; Emergency Provider Emergency Medicine; PCP Physician Assistant; Visit Provider Family Medicine
DX: N39.0 Urinary tract infection, site not specified (principal); Z20.822 Contact with and (suspected) exposure to COVID-19; E11.9 Type 2 diabetes mellitus without complications; Z79.4 Long term (current) use of insulin; I50.82 Biventricular heart failure; K21.9 Gastro-esophageal reflux disease without esophagitis; M51.9 Unspecified thoracic, thoracolumbar and lumbosacral intervertebral disc disorder; Z88.8 Allergy status to other drugs, medicaments and biological substances; Z79.899 Other long term (current) drug therapy; R06.9 Unspecified abnormalities of breathing
CPT/HCPCS: G0378; 36415; 71045; 80048; 80076; 81001; 82150; 82962; 83605; 83690; 83735; 83880; 84145; 84436; 84443; 84484; 85025; 87040; 87086; 93005; 99282; C9803; U0003; U0005

== ENCOUNTER 2021-04-10 18:58 | Emergency (ER) | payer MEDICARE, MEDICAID, SELFPAY ==
[2021-04-10] VITALS (7 sets, daily range): BP systolic 149–167; BP diastolic 53–77; PULSE 60–90; RESP 18; TEMP 36.7; O2SAT 95–100; BMI 44.4
--- NOTE | 2021-04-10 20:33 | HMH.EDSOB ---
ED Disposition Clinical Impression: Acute exacerbation of chronic obstructive airways disease, IDDM (insulin dependent diabetes mellitus) Disposition: Home, Self-Care Condition on Discharge: Good Instructions: DI for Shortness of Breath Additional Instructions: pt has stable exam and labs and will be followed as op Referrals: Hilary Bagley PA [Primary Care Provider] - - Critical Care Critical Care Time: No Attestation: On 04/10/21, the high probability of a clinically significant, sudden or life threatening deterioration of the following system(s) required my full and direct attention, intervention and personal management. The time I documented below is in addition to time spent performing reported procedures but includes the following listed in this critical care notation. Medical Decision Making - Medical Records Medical records reviewed: Yes: I reviewed the patient's medical records. - Sam Inquiry Pt receiving controlled substance: No Vital Signs: 04/10/21 19:35 Temperature 98.1 F Temperature Source Oral Pulse Rate [Right] 64 Respiratory Rate 18 Blood Pressure [Left Arm] 167/70 H Blood Pressure Mean [Left Arm] 102 Blood Pressure Source [Left Arm] Automatic Cuff Blood Pressure Position [Left Arm] Sitting 02 Sat by Pulse Oximetry 95 Oxygen Delivery Method Room Air - Lab Data Lab results reviewed: Yes: I reviewed the patient's lab results. Lab Results 04/10/21 19:30: SARS-CoV-2 (PCR) Not detected, Influenza A Untype (PCR) Not detected, Influenza Type B (PCR) Not detected 04/10/21 19:43: WBC 9.0, RBC 5.00, Hgb 12.8, Hct 40.2, MCV 80.4 L, MCH 25.6 L, MCHC 31.8, RDW 15.5, Plt Count 277, MPV 6.6 L, Neut % (Auto) 64.9, Lymph % (Auto) 25.8, Harper % (Auto) 5.8, Eos % (Auto) 3.1, Baso % (Auto) 0.4, Neut # (Auto) 5.9, Lymph # (Auto) 2.3, Harper # (Auto) 0.5, Eos # (Auto) 0.3, Baso # (Auto) 0.0 04/10/21 19:43: Sodium 141, Potassium 4.0, Chloride 98, Carbon Dioxide 33 H, Anion Gap 14.0, BUN 18 H, Creatinine 0.50 L, Estimated Creat Clear 46, Estimated GFR 122, Est GFR ( Amer) 147, Glucose 253 H, Calcium 9.6, Total Bilirubin 0.2, AST 30, ALT 26, Alkaline Phosphatase 95, Troponin I < 0.01, C-Reactive Protein 23.0 H, NT-Pro-B Natriuret Pep 198 H, Total Protein 7.6, Albumin 3.9, Globulin 3.7 H, Albumin/Globulin Ratio 1.1 04/10/21 19:43: Lactate 1.4 04/10/21 19:43: ESR 20 04/10/21 19:43: Magnesium 1.8, Procalcitonin 0.057 Result diagrams: 04/10/21 19:43 04/10/21 19:43 Orders (Tests/Meds): ORDERS Category Date Time Status Troponin I Q3H Lab 04/10/21 23:30 Ordered Troponin I Q3H Lab 04/11/21 02:30 Ordered UA [Urinalysis and Microscopic] Stat Lab 04/10/21 20:29 Ordered Blood Culture Stat Micro 04/10/21 19:43 Received - Radiology Data #1 Image(s): Chest Image Reviewed: Yes I have reviewed radiologist's interpretation Preliminary Findings: Abnormal (nonspecific ) - ECG Data Tracing #1 Normal Sinus Rhythm: Yes Ischemic changes: non-specific ST-T wave changes - OLE Score for Non-Stemi Age of Patient: 70-79 years old Heart Rate: 50-69 bpm Systolic Blood Pressure: 160-199 mmHg Serum Creatinine: 0.40-0.79 mg/dl CHF Killip Class: I-No CHF Other Risk Factors: None Non-Stemi Risk Score: 92 Resp/SOB HPI - General Chief Complaint: Shortness of Breath/Dyspnea Stated Complaint: SOB,Weakness,congestion Time Seen by Provider: 04/10/21 20:00 Mode of Arrival: Family Vehicle Source of Information: Patient, Medical Record Limitations: Physical Limitations Description of Symptoms (Recalled from ER Triage Doc. by RN): pt complains of heart fluttering pain shortness of air and headache pt has hx o fchf legs +1 pitting - History of Present Illness pt with c/o of weakness and headache and has hx of sob Complaint: shortness of breath Onset (ago): day(s) Context: recent illness Severity: moderate Consistency/Duration: intermittent Known history of: congestive heart failure,
[2021-04-10 20:40] LABS: Coronavirus 19, PCR Not Detected (NotDetected); Influenza A, PCR Not Detected (NotDetected); Influenza B, PCR Not Detected (NotDetected)
[2021-04-10 20:42] LABS: Basophils % 0.4 % (0.1-2.0); Eosinophils # 0.3 K/mm3 (0.0-0.4); Eosinophils % 3.1 % (0.1-12.0); Hematocrit 40.2 % (37.0-47.0); Hemoglobin 12.8 g/dL (12.2-16.2); Lymphocytes # 2.3 K/mm3 (0.7-4.5); Lymphocytes % 25.8 % (10-50); Mean Corpuscular HGB Conc 31.8 g/dL (31.8-35.4); Mean Corpuscular Hemoglobin 25.6 pg (27.0-31.2); Mean Corpuscular Volume 80.4 fl (81-99); Mean Platelet Volume 6.6 fl (7.4-10.4); Monocytes # 0.5 K/mm3 (0.1-1.0); Monocytes % 5.8 % (1.7-9.3); Neutrophils # 5.9 K/mm3 (1.8-7.8); Neutrophils % 64.9 % (37.0-80.0); Platelet Count 277 K/mm3 (142-424); Red Cell Distribution Width 15.5 % (11.5-17.5)
[2021-04-10 20:45] LABS: Alanine Aminotransferase 26 U/L (12-78); Albumin Level 3.9 g/dl (3.5-5.0); Albumin/Globulin Ratio 1.1 (1.1-1.8); Alkaline Phosphatase 95 U/L (38-126); Aspartate Amino Transferase 30 U/L (14-36); Bilirubin,Total 0.2 mg/dl (0.2-1.3); Blood Urea Nitrogen 18 mg/dl (7-17); Calcium 9.6 mg/dl (8.4-10.2); Carbon Dioxide 33 mmol/L (22.0-30.0); Chloride 98 mmol/L (98-107); Creatinine Clearance Estimated 46 mL/min (50-200); Estimated Glomerular Filt Rate 122 ml/min (>60); GFR (African American) 147 ML/MIN (>60); Globulin 3.7 g/dL (1.3-3.2); Glucose 253 mg/dl (74-100); Lactic Acid 1.4 mmol/L (0.7-2.1); Magnesium 1.8 mg/dl (1.6-2.3); Sodium 141 mmol/L (136-145); Total Protein,Serum 7.6 g/dl (6.3-8.2)
[2021-04-10 20:59] LABS: NT Pro Brain Natriuretic Pep. 198 pg/mL (0-125)
--- NOTE | 2021-04-10 21:01 | XR_ITS ---
PROCEDURE INFORMATION: Exam: XR Chest Exam date and time: 04/10/2021 9:01 PM Age: 70 years old Clinical indication: Shortness of breath; Prior surgery; Surgery date: 6+ months; Surgery type: Open heart; Additional info: SOA TECHNIQUE: Imaging protocol: XR of the chest. Views: 2 views. COMPARISON: CR XR CHEST PORTABLE 04/02/2021 7:31 PM FINDINGS: Lungs: Lingular airspace opacities, compatible with subsegmental atelectasis vs infiltrate. Pulmonary vascular congestion without angie pulmonary edema. Pleural spaces: No pleural effusion. No pneumothorax. Heart/Mediastinum: Cardiomediastinal silhouette is unchanged, accounting for differences in projection. Bones/joints: No acute osseous abnormality. Soft tissues: Unremarkable. IMPRESSION: 1. Pulmonary vascular congestion without angie pulmonary edema. 2. Lingular airspace opacities, compatible with subsegmental atelectasis vs infiltrate.
[2021-04-10 21:03] LABS: Troponin I < 0.01 ng/ml (0.00-0.034)
[2021-04-10 21:04] LABS: Procalcitonin 0.057 ng/mL (0.0-2.0)
[2021-04-10 21:11] LABS: Erythrocyte Sedimentation Rate 20 mm/hr (0-30)
--- NOTE | 2021-04-10 21:47 | ECG_ITS ---
APPROVED REPORT Exam: Resting ECG HR:64 bpm ECG Measurements Heart Rate 64 AXES IN 198 P 24 QRSd 88 QRS 27 QT 408 T 72 QTc 420 Conclusion Normal sinus rhythm Normal ECG Electronically signed by : Andrade Pack MD 04/11/2021 08:55:54
== END 2021-04-10 22:41 | disposition home or self-care (01) ==
PROVIDERS: Emergency Provider Emergency Medicine; PCP Physician Assistant
DX: J44.1 Chronic obstructive pulmonary disease with (acute) exacerbation (principal); E11.9 Type 2 diabetes mellitus without complications; I50.9 Heart failure, unspecified; M81.0 Age-related osteoporosis without current pathological fracture; I25.2 Old myocardial infarction; M79.7 Fibromyalgia; K21.9 Gastro-esophageal reflux disease without esophagitis; E78.5 Hyperlipidemia, unspecified; I10 Essential (primary) hypertension; Z79.899 Other long term (current) drug therapy
CPT/HCPCS: 71046; 80053; 83605; 83735; 83880; 84145; 84484; 85025; 85651; 86140; 87040; 93005; 99283; C9803; U0003; U0005

== ENCOUNTER → 2021-11-03 12:59 | Outpatient (CLI) | payer MEDICARE, MEDICAID, SELFPAY ==
[2021-11-03 14:04] LABS: Basophils # 0.1 K/mm3 (0-0.2); Basophils % 1.5 % (0.1-2.0); Eosinophils # 0.2 K/mm3 (0.0-0.4); Eosinophils % 1.7 % (0.1-12.0); Hematocrit 38.5 % (37.0-47.0); Hemoglobin 12.9 g/dL (12.2-16.2); Lymphocytes # 2.2 K/mm3 (0.7-4.5); Lymphocytes % 24.2 % (10-50); Mean Corpuscular HGB Conc 33.6 g/dL (31.8-35.4); Mean Corpuscular Hemoglobin 28.7 pg (27.0-31.2); Mean Corpuscular Volume 85.6 fl (81-99); Monocytes # 0.4 K/mm3 (0.1-1.0); Neutrophils # 6.4 K/mm3 (1.8-7.8); Neutrophils % 68.7 % (37.0-80.0); Platelet Count 265 K/mm3 (142-424); Red Blood Count 4.49 M/mm3 (4.20-5.40); Red Cell Distribution Width 16.2 % (11.5-17.5); White Blood Count 9.3 K/mm3 (4.8-10.8)
[2021-11-03 14:23] LABS: Alanine Aminotransferase 26 U/L (12-78); Albumin Level 3.7 g/dl (3.5-5.0); Albumin/Globulin Ratio 1.3 (1.1-1.8); Alkaline Phosphatase 97 U/L (38-126); Anion Gap 11.4 mEq/L (5-15); Aspartate Amino Transferase 28 U/L (14-36); Bilirubin,Total 0.4 mg/dl (0.2-1.3); Blood Urea Nitrogen 42 mg/dl (7-17); Calcium 9.3 mg/dl (8.4-10.2); Carbon Dioxide 28 mmol/L (22.0-30.0); Chloride 103 mmol/L (98-107); Chol/HDL Ratio 4.5 (1-3.5); Cholesterol 98 mg/dl (140-200); Estimated Glomerular Filt Rate 71 ml/min (>60); GFR (African American) 85 ML/MIN (>60); Globulin 2.8 g/dL (1.3-3.2); Glucose 166 mg/dl (74-100); HDL Cholesterol 22 mg/dl (40-60); Potassium 4.4 mmoL/L (3.5-5.1); Sodium 138 mmol/L (136-145); Total Protein,Serum 6.5 g/dl (6.3-8.2); Triglycerides 240 mg/dl (30-150); VLDL Cholesterol 48 mg/dL (0-40)
[2021-11-03 14:33] LABS: Amphetamine/Metha Screen,Urine Negative ng/ml (<1000)
[2021-11-03 14:34] LABS: Barbiturates Screen,Urine Negative ng/ml (<200)
[2021-11-03 14:35] LABS: Direct LDL Cholesterol 36.14 mg/dL (100-129)
[2021-11-03 14:37] LABS: Benzodiazepines Screen,Urine Negative ng/ml (<200)
[2021-11-03 14:38] LABS: Cannabinoid Screen,Urine Negative ng/ml (<50)
[2021-11-03 14:39] LABS: Cocaine Screen,Urine Negative ng/ml (<300)
[2021-11-03 14:40] LABS: Methadone Screen,Urine Negative ng/ml (<300); Opiate Screen,Urine Positive ng/ml (<300)
[2021-11-03 14:41] LABS: 25-OH Vitamin D, Total 43.6 ng/mL (30-100); Phencyclidine Screen,Urine Negative ng/ml (<25)
[2021-11-03 14:54] LABS: Thyroid Stimulating Hormone 2.34 uIU/mL (0.465-4.68)
[2021-11-03 15:06] LABS: Hemoglobin A1C 7.3 % (4.0-6.0)
== END ==
PROVIDERS: PCP Physician Assistant; Visit Provider Physician Assistant
DX: R07.89 Other chest pain; I10 Essential (primary) hypertension; E11.9 Type 2 diabetes mellitus without complications; E78.5 Hyperlipidemia, unspecified; R53.83 Other fatigue; M51.16 Intervertebral disc disorders with radiculopathy, lumbar region; E55.9 Vitamin D deficiency, unspecified; Z79.4 Long term (current) use of insulin
CPT/HCPCS: 80053; 80061; 80305; 82043; 82306; 83036; 84443; 85025

== ENCOUNTER 2021-12-04 14:16 | Emergency (ER) | payer MEDICARE, MEDICAID, SELFPAY ==
[2021-12-04 14:16] VITALS: BP 145/72; PULSE 76; RESP 20; TEMP 36.7; O2SAT 96; BMI 44.4
--- NOTE | 2021-12-04 14:23 | XR_ITS ---
PROCEDURE INFORMATION: Exam: XR Thoracic Spine Exam date and time: 12/04/2021 2:28 PM Age: 71 years old Clinical indication: Pain in thoracic spine; Without myelpathy or radiculopathy; Additional info: Left upper back pain- and left shoulder pain - no injury just woke up in pain TECHNIQUE: Imaging protocol: XR of the thoracic spine. Views: 2 views. COMPARISON: CR XR CHEST 2V 04/10/2021 9:13 PM FINDINGS: Bones/joints: No acute skeletal pathology. Moderate multilevel degenerative changes of the spine, as manifested by multilevel anterior osteophytes and multilevel decrease in intervertebral disc space. No aggressive osseous lesions. The spinal canal is patent. Diffuse moderate facet joint hypertrophy. Soft tissues: Unremarkable. Other findings: There is no evidence of acutely displaced fractures. There is no evidence of joint dislocation. Visualized chest is unremarkable. IMPRESSION: 1. No acute skeletal pathology. 2. Ravn-we-nbdaobud multilevel degenerative changes.
--- NOTE | 2021-12-04 14:23 | XR_ITS ---
PROCEDURE INFORMATION: Exam: XR Left Shoulder Exam date and time: 12/04/2021 2:22 PM Age: 71 years old Clinical indication: Pain; Shoulder; Left; Additional info: Leftshoulder pain- no injury just woke up in pain TECHNIQUE: Imaging protocol: XR Left shoulder. Views: 2 or more views. COMPARISON: CR XR SHOULDER LT MIN 2V 08/31/2019 8:29 PM FINDINGS: Bones/joints: There are severe degenerative changes of the left acromioclavicular joint. Moderate osteoarthritis of the left glenohumeral joint, as manifested predominantly by decreased joint space, marginal osteophyte formation, and subchondral sclerosis. There is no evidence of acutely displaced fractures. There is no evidence of joint dislocation. No aggressive osseous lesions. Soft tissues: There is no significant soft tissue swelling. Visualized chest is unremarkable. IMPRESSION: 1. No acute skeletal pathology. 2. 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
--- NOTE | 2021-12-04 14:24 | HMH.EDGENADL ---
ED Disposition Clinical Impression: Upper back pain on left side Disposition: Home, Self-Care Condition on Discharge: Good Instructions: DI for Thoracic Back Pain Additional Instructions: follow up PCP, return for worse or any concerns Referrals: Hilary Bagley PA [Primary Care Provider] - - Critical Care Critical Care Time: No Attestation: On 12/04/21, the high probability of a clinically significant, sudden or life threatening deterioration of the following system(s) required my full and direct attention, intervention and personal management. The time I documented below is in addition to time spent performing reported procedures but includes the following listed in this critical care notation. Medical Decision Making - Medical Records Medical records reviewed: Yes: I reviewed the patient's medical records. - Sam Inquiry Pt receiving controlled substance: No Vital Signs: 12/04/21 14:16 Temperature 98.0 F Temperature Source Oral Pulse Rate [Left Radial] 76 Respiratory Rate 20 Blood Pressure [Right Arm] 145/72 H Blood Pressure Mean [Right Arm] 96 Blood Pressure Source [Right Arm] Automatic Cuff Blood Pressure Position [Right Arm] Sitting 02 Sat by Pulse Oximetry 96 Oxygen Delivery Method Nasal Cannula Oxygen Flow Rate (LPM) 2 Orders (Tests/Meds): ED MEDICATIONS Discontinued Medications Generic Name Dose Route Start Last Admin Trade Name Freq PRN Reason Stop Dose Admin Morphine Sulfate 4 mg 12/04/21 14:55 Morphine 4mg/Ml Syringe IM 12/04/21 14:56 ONCE ONE ORDERS Category Date Time Status Thoracic spine 2 views [XR thoracic spine 2V] Stat Exams 12/04/21 14:23 Taken XR shoulder LT min 2V Stat Exams 12/04/21 14:23 Taken Urinalysis-Acute [Urinalysis and Microscopic] Stat Lab 12/04/21 14:51 Ordered Medical Decision Narrative: 3pm reeval, reconfirmed localized pain in left periscapula muscles harris cp/soa General Adult HPI - General Stated complaint: back pain Time Seen by Provider: 12/04/21 14:24 - History of Present Illness HPI narrative: woke up with left upper back pain, wax/wane, no injury no assoc symptoms 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/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 Onset (ago): hour(s) Location: back Radiation: back Severity: moderate Consistency: constant, intermittent Relieving factors: immobilization Exacerbating factors: movement Associated symptoms: denies other symptoms - Related Data Home Medications Medication Instructions Recorded Confirmed Cholecalciferol (Vitamin D3) 1,000 unit PO DAILY 08/11/20 11/03/21 [Vitamin D3 1,000 Unit Cap] aspirin 81 mg tablet,delayed 81 mg PO DAILY 11/18/20 11/03/21 release ascorbate calcium (vitamin C) 500 500 mg PO DAILY 11/30/20 11/03/21 mg tablet Spironolactone [Spironolactone 50 mg PO BID 04/03/21 11/03/21 25mg Tablet] bisoprolol fumarate 10 mg tablet 10 mg PO DAILY 08/17/21 11/03/21 losartan 100 mg tablet 100 mg PO DAILY 08/17/21 11/03/21 Previous Rx's Medication Instructions Recorded albuterol sulfate 1.25 mg/3 mL 1.25 mg INHALATION QID PRN #90 ml 12/07/20 solution for nebulization albuterol sulfate 90 mcg/actuation 2 puff INHALATION Q6 #6.7 g 12/07/20 aerosol inhaler omeprazole 20 mg capsule,delayed 20 mg PO DAILY #90 cap 04/08/21 release metoclopramide HCl 5 mg tablet See Rx Instructions .ROUTE 06/24/21 .COMPLEX #180 tablet insulin detemir U-100 100 unit/mL See Rx Instructions .ROUTE 06/30/21 (3 mL) subcutaneous pen .COMPLEX #195 milliliter fluticasone fur. 200 mcg-umeclid 1 ea PO DAILY #90 each 08/03/21 62.5 mcg-vilant 25 mcg inhalat.powder buspirone 5 mg tablet See Rx Instructions .ROUTE 09/08/21 .COMPLEX #90 tab clopidogrel 75 mg tablet See Rx Instructions .ROUTE 09/08/21 .COMPLEX #90 tab icosapent ethyl 1 gram capsule See Rx Instructions .ROUTE 09/08/21 .COMPLEX #360 cap levothyroxine 50 mcg tablet See Rx Instructions .ROUTE 09/08/21 .COMPLEX #90
--- NOTE | 2021-12-04 14:41 | PC.NURSE ---
pt back from radiology
[2021-12-04 14:58] LABS: Microscopic, Urine URINE MICROSCOPIC (MICROSCOPIC)
[2021-12-04 15:08] LABS: Appearance,Urine CLEAR (Clear); Bilirubin,Urine Negative (Negative); Blood, Urine Negative (Negative); Color,Urine YELLOW (Yellow); Glucose,Urine (UA) Negative (Negative); Ketones,Urine Negative (Negative); Leukocyte Esterase,Urine Negative (Negative); Nitrate,Urine Negative (Negative); Protein,Urine Negative (Negative); Specific Gravity, Urine <= 1.005 (1.005-1.030); Urobilinogen,Urine 0.2 EU/dl (0.2)
[2021-12-04 15:31] LABS: Bacteria,Urine Trace /lpf; Squamous Epithelial Cell,Urine Occasional #/hpf (0-5); WBC,Urine Occasional #/hpf (0-3)
[2021-12-04 15:42] VITALS: BP 136/77; PULSE 81; RESP 18; TEMP 36.7; O2SAT 97
== END 2021-12-04 15:53 | disposition home or self-care (01) ==
PROVIDERS: Emergency Provider Emergency Medicine; PCP Physician Assistant
DX: M54.6 Pain in thoracic spine (principal); J44.9 Chronic obstructive pulmonary disease, unspecified; E11.9 Type 2 diabetes mellitus without complications; K21.9 Gastro-esophageal reflux disease without esophagitis; I10 Essential (primary) hypertension; E03.9 Hypothyroidism, unspecified; E78.5 Hyperlipidemia, unspecified; M79.7 Fibromyalgia; I25.2 Old myocardial infarction; I25.10 Atherosclerotic heart disease of native coronary artery without angina pectoris; Z79.899 Other long term (current) drug therapy
CPT/HCPCS: 72070; 73030; 81001; 96372; 99283

== ENCOUNTER → 2021-12-29 12:10 | Outpatient (CLI) | payer MEDICARE, MEDICAID, SELFPAY ==
--- NOTE | 2021-12-29 12:18 | XR_ITS ---
FINAL REPORT CLINICAL HISTORY: Shorrtness of breath COMPARISON: April 10, 2021 FINDINGS: Two views of the chest were obtained. There is evidence of median sternotomy. The heart is enlarged. There is pulmonary vascular congestion. The mediastinum is normal. There is mild left base atelectasis or pneumonia. There is no pneumothorax. The bony thorax is intact. IMPRESSION: Mild left base atelectasis or pneumonia. Mild pulmonary vascular congestion. Cardiomegaly. Reviewed, Interpreted and Dictated by Armando Price III, MD Transcribed by Lizet Alvarez Authenticated and . [facility]
== END ==
PROVIDERS: PCP Physician Assistant; Visit Provider Physician Assistant
DX: R06.00 Dyspnea, unspecified (principal)
CPT/HCPCS: 71046

== ENCOUNTER → 2022-01-04 09:47 | Outpatient (CLI) | payer MEDICARE, MEDICAID, SELFPAY ==
[2022-01-04 10:40] VITALS: PULSE 83; PULSE 86
[2022-01-04 11:41] LABS: Basophils # 0.2 K/mm3 (0-0.2); Basophils % 1.8 % (0.1-2.0); Eosinophils # 0.2 K/mm3 (0.0-0.4); Eosinophils % 1.7 % (0.1-12.0); Hematocrit 38.2 % (37.0-47.0); Hemoglobin 12.8 g/dL (12.2-16.2); Lymphocytes # 2.6 K/mm3 (0.7-4.5); Lymphocytes % 24.5 % (10-50); Mean Corpuscular HGB Conc 33.6 g/dL (31.8-35.4); Mean Corpuscular Hemoglobin 28.3 pg (27.0-31.2); Mean Corpuscular Volume 84.3 fl (81-99); Mean Platelet Volume 8.4 fl (7.4-10.4); Monocytes # 0.5 K/mm3 (0.1-1.0); Monocytes % 4.7 % (1.7-9.3); Neutrophils # 7.1 K/mm3 (1.8-7.8); Neutrophils % 67.3 % (37.0-80.0); Platelet Count 245 K/mm3 (142-424); Red Blood Count 4.53 M/mm3 (4.20-5.40); Red Cell Distribution Width 15.5 % (11.5-17.5); White Blood Count 10.5 K/mm3 (4.8-10.8)
[2022-01-04 11:59] LABS: Hemoglobin A1C 7.3 % (4.0-6.0)
[2022-01-04 12:09] LABS: Chloride 101 mmol/L (98-107); Potassium 4.8 mmoL/L (3.5-5.1); Sodium 141 mmol/L (136-145)
[2022-01-04 12:11] LABS: Alanine Aminotransferase 21 U/L (12-78); Aspartate Amino Transferase 25 U/L (14-36); Blood Urea Nitrogen 61 mg/dl (7-17); Estimated Glomerular Filt Rate 49 ml/min (>60); GFR (African American) 59 ML/MIN (>60)
[2022-01-04 12:12] LABS: Albumin/Globulin Ratio 1.5 (1.1-1.8); Alkaline Phosphatase 92 U/L (38-126); Anion Gap 13.8 mEq/L (5-15); Bilirubin,Total 0.3 mg/dl (0.2-1.3); Calcium 9.8 mg/dl (8.4-10.2); Carbon Dioxide 31 mmol/L (22.0-30.0); Chol/HDL Ratio 4.7 (1-3.5); Cholesterol 108 mg/dl (140-200); Globulin 2.7 g/dL (1.3-3.2); Glucose 161 mg/dl (74-100); HDL Cholesterol 23 mg/dl (40-60); Total Protein,Serum 6.7 g/dl (6.3-8.2); Triglycerides 179 mg/dl (30-150); VLDL Cholesterol 36 mg/dL (0-40)
[2022-01-04 12:22] LABS: NT Pro Brain Natriuretic Pep. 250 pg/mL (0-125)
[2022-01-04 12:23] LABS: Direct LDL Cholesterol 41.68 mg/dL (100-129)
[2022-01-04 12:43] LABS: Thyroid Stimulating Hormone 2.46 uIU/mL (0.465-4.68)
== END ==
PROVIDERS: PCP Physician Assistant; Visit Provider Internal Medicine Pulmonary Disease
DX: R06.00 Dyspnea, unspecified (principal); R73.9 Hyperglycemia, unspecified; E55.9 Vitamin D deficiency, unspecified; R60.9 Edema, unspecified; R53.83 Other fatigue; E66.9 Obesity, unspecified; Z68.42 Body mass index [BMI] 45.0-49.9, adult
CPT/HCPCS: 36415; 80053; 80061; 82306; 83036; 83880; 84443; 85025; 94060; 94640; 94727; 94729

== ENCOUNTER 2022-02-10 18:43 | Emergency (ER) | payer MEDICARE, MEDICAID, SELFPAY ==
[2022-02-10] VITALS (8 sets, daily range): BP systolic 104–145; BP diastolic 42–65; PULSE 51–72; RESP 18–26; TEMP 36.8; O2SAT 94–100; BMI 44.4
--- NOTE | 2022-02-10 19:26 | CT_ITS ---
PROCEDURE INFORMATION: Exam: CT Abdomen And Pelvis With Contrast Exam date and time: 02/10/2022 7:57 PM Age: 71 years old Clinical indication: Nausea and vomiting; Additional info: N/v TECHNIQUE: Imaging protocol: Computed tomography of the abdomen and pelvis with contrast. Radiation optimization: All CT scans at this facility use at least one of these dose optimization techniques: automated exposure control; mA and/or kV adjustment per patient size (includes targeted exams where dose is matched to clinical indication); or iterative reconstruction. Contrast material: ISOVUE; Contrast volume: 75 ml; Contrast route: IV; COMPARISON: MR ABDOMEN WO/W CON 05/17/2019 8:12 AM FINDINGS: Liver: Normal. No mass. Gallbladder and bile ducts: Post cholecystectomy change. Pancreas: Normal enhancement. No ductal dilation. Spleen: There are multiple splenic calcifications likely on the basis of prior granulomatous exposure. Adrenal glands: No mass. Kidneys and ureters: No hydronephrosis. Stomach and bowel: No obstruction. No mucosal thickening. Appendix: No evidence of appendicitis. Intraperitoneal space: No free air. No significant fluid collection. Vasculature: Calcified atherosclerosis. No aneurysm. Lymph nodes: No enlarged lymph nodes. Urinary bladder: No acute abnormality. Reproductive: No acute abnormality. Bones/joints: Degenerative changes of the spine. Scoliosis. No fracture. Soft tissues: Extensive subcutaneous adipose extending beyond the field of view. IMPRESSION: Chronic changes without acute process.
--- NOTE | 2022-02-10 19:30 | CT_ITS ---
PROCEDURE INFORMATION: Exam: CT Thoracic Spine Without Contrast Exam date and time: 02/10/2022 7:54 PM Age: 71 years old Clinical indication: Pain in thoracic spine TECHNIQUE: Imaging protocol: Computed tomography of the thoracic spine without contrast. Radiation optimization: All CT scans at this facility use at least one of these dose optimization techniques: automated exposure control; mA and/or kV adjustment per patient size (includes targeted exams where dose is matched to clinical indication); or iterative reconstruction. COMPARISON: CR XR THORACIC SPINE 2V 12/04/2021 2:28 PM FINDINGS: Bones/joints: Scoliosis. Accentuation of the thoracic kyphosis. Moderate degenerative changes. No acute fracture. Soft tissues: Extensive subcutaneous adipose extending beyond the field of view. Vasculature: Calcified atherosclerosis. No aneurysm. Calcified atherosclerosis. No aneurysm. Heart: Coronary artery calcifications. IMPRESSION: Chronic changes without acute process.
[2022-02-10 19:32] LABS: Basophils # 0.1 K/mm3 (0-0.2); Basophils % 0.4 % (0.1-2.0); Eosinophils # 0.2 K/mm3 (0.0-0.4); Eosinophils % 1.6 % (0.1-12.0); Hematocrit 30.9 % (37.0-47.0); Hemoglobin 10.4 g/dL (12.2-16.2); Lymphocytes # 2.6 K/mm3 (0.7-4.5); Lymphocytes % 24.2 % (10-50); Mean Corpuscular HGB Conc 33.6 g/dL (31.8-35.4); Mean Corpuscular Hemoglobin 28.4 pg (27.0-31.2); Mean Corpuscular Volume 84.6 fl (81-99); Mean Platelet Volume 7.4 fl (7.4-10.4); Monocytes # 0.6 K/mm3 (0.1-1.0); Monocytes % 5.3 % (1.7-9.3); Neutrophils # 7.3 K/mm3 (1.8-7.8); Neutrophils % 68.4 % (37.0-80.0); Platelet Count 238 K/mm3 (142-424); Red Blood Count 3.65 M/mm3 (4.20-5.40); Red Cell Distribution Width 15.1 % (11.5-17.5); White Blood Count 10.7 K/mm3 (4.8-10.8)
[2022-02-10 19:39] LABS: Chloride 101 mmol/L (98-107); Sodium 139 mmol/L (136-145)
[2022-02-10 19:42] LABS: Alanine Aminotransferase 22 U/L (12-78); Alkaline Phosphatase 93 U/L (38-126); Amylase 69 U/L (30-110); Aspartate Amino Transferase 26 U/L (14-36); Bilirubin,Total 0.3 mg/dl (0.2-1.3); Blood Urea Nitrogen 50 mg/dl (7-17); Calcium 9.5 mg/dl (8.4-10.2); Carbon Dioxide 32 mmol/L (22.0-30.0); Creatinine Clearance Estimated 46 mL/min (50-200); Estimated Glomerular Filt Rate 55 ml/min (>60); GFR (African American) 66 ML/MIN (>60); Glucose 164 mg/dl (74-100); Lipase 97 U/L (23-300)
[2022-02-10 19:44] LABS: Albumin Level 3.8 g/dl (3.5-5.0); Albumin/Globulin Ratio 1.2 (1.1-1.8); Globulin 3.2 g/dL (1.3-3.2)
[2022-02-10 19:48] LABS: C-Reactive Protein 17.6 mg/L (0-4)
[2022-02-10 19:58] LABS: Anion Gap 10.2 mEq/L (5-15); Potassium 4.2 mmoL/L (3.5-5.1)
[2022-02-10 20:19] LABS: Coronavirus 19, PCR Not Detected (NotDetected); Influenza A, PCR Not Detected (NotDetected); Influenza B, PCR Not Detected (NotDetected)
[2022-02-10 20:19] LABS: Procalcitonin 0.071 ng/mL (0.0-2.0)
[2022-02-10 20:44] LABS: Erythrocyte Sedimentation Rate > 140 mm/hr (0-30)
--- NOTE | 2022-02-10 21:00 | PC.NURSE ---
at speaking with pt about POC
[2022-02-10 21:05] LABS: Microscopic, Urine URINE MICROSCOPIC (MICROSCOPIC)
--- NOTE | 2022-02-10 21:05 | HMH.EDGENADL ---
ED Disposition Clinical Impression: UTI (urinary tract infection) Qualifiers: Urinary tract infection type: site unspecified Hematuria presence: without hematuria Qualified Code(s): N39.0 - Urinary tract infection, site not specified Disposition: Home, Self-Care Condition on Discharge: Good Instructions: DI for Urinary Tract Infection (UTI) Additional Instructions: use meds and call pcp for follow up and urine culture Prescriptions: Cefdinir [Omnicef 300mg Capsule] 300 mg PO BID #14 cap Transmission Status: Pending to [employer] Referrals: Hilary Bagley PA [Primary Care Provider] - - Critical Care Critical Care Time: No Attestation: On 02/10/22, the high probability of a clinically significant, sudden or life threatening deterioration of the following system(s) required my full and direct attention, intervention and personal management. The time I documented below is in addition to time spent performing reported procedures but includes the following listed in this critical care notation. Medical Decision Making - Medical Records Medical records reviewed: Yes: I reviewed the patient's medical records. - Sam Inquiry Pt receiving controlled substance: No Vital Signs: 02/10/22 18:44 02/10/22 19:31 02/10/22 20:14 Temperature 98.2 F Temperature Source Oral Pulse Rate 51 L 57 L Pulse Rate [Radial] 59 L Respiratory Rate 22 26 H 24 Blood Pressure 120/56 L 145/50 H Blood Pressure [Right Arm] 108/47 L Blood Pressure Mean Blood Pressure Mean [Right Arm] 67 Blood Pressure Position [Right Arm] Sitting 02 Sat by Pulse Oximetry 94 L 98 99 Oxygen Delivery Method Nasal Cannula Oxygen Flow Rate (LPM) 2.5 02/10/22 20:31 02/10/22 21:01 02/10/22 21:31 Temperature Temperature Source Pulse Rate 72 62 51 L Pulse Rate [Radial] Respiratory Rate 18 19 20 Blood Pressure 129/55 L 138/42 L 120/55 L Blood Pressure [Right Arm] Blood Pressure Mean 79 74 76 Blood Pressure Mean [Right Arm] Blood Pressure Position [Right Arm] 02 Sat by Pulse Oximetry 99 95 100 Oxygen Delivery Method Oxygen Flow Rate (LPM) 2.5 02/10/22 22:01 Temperature Temperature Source Pulse Rate 52 L Pulse Rate [Radial] Respiratory Rate 20 Blood Pressure 107/65 L Blood Pressure [Right Arm] Blood Pressure Mean 73 Blood Pressure Mean [Right Arm] Blood Pressure Position [Right Arm] 02 Sat by Pulse Oximetry 99 Oxygen Delivery Method Oxygen Flow Rate (LPM) - Lab Data Lab results reviewed: Yes: I reviewed the patient's lab results. Lab Results 02/10/22 19:19: WBC 10.7, RBC 3.65 L, Hgb 10.4 L, Hct 30.9 L, MCV 84.6, MCH 28.4, MCHC 33.6, RDW 15.1, Plt Count 238, MPV 7.4, Neut % (Auto) 68.4, Lymph % (Auto) 24.2, [place] % (Auto) 5.3, Eos % (Auto) 1.6, Baso % (Auto) 0.4, Neut # (Auto) 7.3, Lymph # (Auto) 2.6, [place] # (Auto) 0.6, Eos # (Auto) 0.2, Baso # (Auto) 0.1, ESR > 140 H 02/10/22 19:19: Sodium 139, Potassium 4.2, Chloride 101, Carbon Dioxide 32 H, Anion Gap 10.2, BUN 50 H, Creatinine 1.00, Estimated Creat Clear 46, Estimated GFR 55 L, Est GFR ( Amer) 66, Glucose 164 H, Calcium 9.5, Total Bilirubin 0.3, AST 26, ALT 22, Alkaline Phosphatase 93, C-Reactive Protein 17.6 H, Total Protein 7.0, Albumin 3.8, Globulin 3.2, Albumin/Globulin Ratio 1.2, Amylase 69, Lipase 97, Procalcitonin 0.071 02/10/22 20:12: SARS-CoV-2 (PCR) Not detected, Influenza A Untype (PCR) Not detected, Influenza Type B (PCR) Not detected 02/10/22 21:00: Urine Color Yellow, Urine Appearance Clear, Urine pH 5.0, Ur Specific [place] 1.010, Urine Protein Negative, Urine Glucose (UA) Negative, Urine Ketones Negative, Urine Blood Negative, Urine Nitrate Negative, Urine Bilirubin Negative, Urine Urobilinogen 0.2, Ur Leukocyte Esterase 1+ A, Urine WBC 10-20, Ur Squamous Epith Cells 10-20, Urine Bacteria 1+ Result diagrams: 02/10/22 19:19 02/10/22 19:19 Orders (Tests/Meds): ED MEDICATIONS Generic Name Dose Route S
[2022-02-10 21:07] LABS: Appearance,Urine CLEAR (Clear); Bilirubin,Urine Negative (Negative); Blood, Urine Negative (Negative); Color,Urine YELLOW (Yellow); Glucose,Urine (UA) Negative (Negative); Ketones,Urine Negative (Negative); Leukocyte Esterase,Urine 1+ (Negative); Nitrate,Urine Negative (Negative); Protein,Urine Negative (Negative); Urobilinogen,Urine 0.2 EU/dl (0.2)
[2022-02-10 21:45] LABS: Bacteria,Urine 1+ /lpf
== END 2022-02-10 22:39 | disposition home or self-care (01) ==
PROVIDERS: Emergency Provider Emergency Medicine; PCP Physician Assistant
DX: N39.0 Urinary tract infection, site not specified (principal)
CPT/HCPCS: 72128; 74177; 80053; 81001; 82150; 83690; 84145; 85025; 85651; 86140; 87086; 96361; 96374; 96375; 99284; C9803; J0696; J2405; Q9967; U0003; U0005

== ENCOUNTER 2022-03-12 11:06 | Emergency (ER) | payer MEDICARE, MEDICAID, SELFPAY ==
[2022-03-12] VITALS (9 sets, daily range): BP systolic 98–141; BP diastolic 44–95; PULSE 52–85; RESP 18–19; TEMP 37.1; O2SAT 93–100; BMI 46.2
--- NOTE | 2022-03-12 11:12 | PC.NURSE ---
ED MD AT BEDSIDE FOR EVALUATION
--- NOTE | 2022-03-12 11:27 | HMH.EDGENADL ---
ED Disposition Clinical Impression: Epistaxis Disposition: Home, Self-Care Condition on Discharge: Good Instructions: DI for Nosebleed Additional Instructions: Additional instructions for NOSE BLEED: If nosebleed starts again, squeeze your nostrils together with thumb and forefinger for 5 minutes. If unable to stop the bleeding, return to the emergency department. Referrals: Hilary Bagley PA [Primary Care Provider] - - Critical Care Critical Care Time: No Attestation: On 03/12/22, the high probability of a clinically significant, sudden or life threatening deterioration of the following system(s) required my full and direct attention, intervention and personal management. The time I documented below is in addition to time spent performing reported procedures but includes the following listed in this critical care notation. Medical Decision Making - Sam Inquiry Pt receiving controlled substance: No Vital Signs: 03/12/22 11:04 03/12/22 11:19 03/12/22 11:30 Temperature 98.7 F Temperature Source Oral Pulse Rate 78 85 Pulse Rate [Radial] 60 Respiratory Rate 18 19 Blood Pressure 134/51 L 135/95 H Blood Pressure [Right Arm] 138/57 L Blood Pressure Mean 108 Blood Pressure Mean [Right Arm] 84 Blood Pressure Source Automatic Cuff Blood Pressure Source [Right Arm] Automatic Cuff Blood Pressure Position Sitting Blood Pressure Position [Right Arm] Sitting 02 Sat by Pulse Oximetry 96 97 98 Oxygen Delivery Method Nasal Cannula Nasal Cannula Nasal Cannula Oxygen Flow Rate (LPM) 2.5 2 3 03/12/22 11:46 Temperature Temperature Source Pulse Rate 68 Pulse Rate [Radial] Respiratory Rate Blood Pressure 136/48 L Blood Pressure [Right Arm] Blood Pressure Mean 77 Blood Pressure Mean [Right Arm] Blood Pressure Source Blood Pressure Source [Right Arm] Blood Pressure Position Blood Pressure Position [Right Arm] 02 Sat by Pulse Oximetry 93 L Oxygen Delivery Method Nasal Cannula Oxygen Flow Rate (LPM) 2 Orders (Tests/Meds): ED MEDICATIONS Discontinued Medications Generic Name Dose Route Start Last Admin Trade Name Freq PRN Reason Stop Dose Admin Cocaine HCl 4 ml 03/12/22 11:20 03/12/22 11:37 Cocaine 4% Topical Soln 4ml Bottle TP 03/12/22 11:21 4 ml ONCE ONE Administration Silver Nitrate 1 each 03/12/22 11:20 03/12/22 11:37 Silver Nitrate Applicator TP 03/12/22 11:21 1 each ONCE ONE Administration - Reevaluation(s) Time: 12:18 Reevaluation #1: No bleeding General Adult HPI - General Chief complaint: Epistaxis Stated complaint: NOSE BLEED Time Seen by Provider: 03/12/22 11:13 Mode of Arrival: EMS Limitations: No Limitations Description of Symptoms (Recalled from ER Triage Doc. by RN): PT BROUGHT IN VIA EMS FOR NOSE BLEED THAT BEGAN ABOUT 0930. STOPPED EN ROUTE. PT ON PLAVIX AND XARELTO. NO ACTIVE BLEDDING AT THIS TIME. PT WEARS HOME O2 AT 2.5L/NC - History of Present Illness HPI narrative: Brought in by EMS for nosebleed. She says it started 20 minutes prior to arrival. It stopped during transport. There was bleeding from her right nares. No trauma, nosebleed was spontaneous. She is on Xarelto and Plavix. No prior history of nosebleeds. She is on oxygen by nasal cannula at home. - Related Data Home Medications Medication Instructions Recorded Confirmed Cholecalciferol (Vitamin D3) 1,000 unit PO DAILY 08/11/20 01/04/22 [Vitamin D3 1,000 Unit Cap] aspirin 81 mg tablet,delayed 81 mg PO DAILY 11/18/20 01/04/22 release ascorbate calcium (vitamin C) 500 500 mg PO DAILY 11/30/20 01/04/22 mg tablet Spironolactone [Spironolactone 50 mg PO BID 04/03/21 01/04/22 25mg Tablet] Previous Rx's Medication Instructions Recorded albuterol sulfate 90 mcg/actuation 2 puff INHALATION Q6 #6.7 g 12/07/20 aerosol inhaler omeprazole 20 mg capsule,delayed 20 mg PO DAILY #90 cap 04/08/21 release metoclopr
--- NOTE | 2022-03-12 12:04 | PC.NURSE ---
ROUNDED ON PT AT THIS TIME. NO NEEDS VOICED
--- NOTE | 2022-03-12 12:15 | PC.NURSE ---
JACK ACE at bedside.
--- NOTE | 2022-03-12 12:19 | PC.NURSE ---
FAMILY NOTIFIED THAT PT IS READY FOR DISCHARGE
--- NOTE | 2022-03-12 12:36 | PC.NURSE ---
PT UP TO BEDSIDE CHAIR, NO NEEDS AT THIS TIME
--- NOTE | 2022-03-12 12:55 | PC.NURSE ---
pts ride is here to take patient home.
== END 2022-03-12 13:07 | disposition home or self-care (01) ==
PROVIDERS: Emergency Provider Emergency Medicine; PCP Physician Assistant
DX: Z79.01 Long term (current) use of anticoagulants (principal); R04.0 Epistaxis
CPT/HCPCS: 30901; 99283

== ENCOUNTER → 2022-03-14 06:36 | Outpatient (CLI) | payer MEDICARE, MEDICAID, SELFPAY | PROVIDERS: PCP Physician Assistant; Visit Provider Physician Assistant | DX: R53.83 Other fatigue (principal); N39.0 Urinary tract infection, site not specified; B96.29 Other Escherichia coli [E. coli] as the cause of diseases classified elsewhere | CPT/HCPCS: 87086; 87088; 87186 ==

== ENCOUNTER 2022-03-16 08:19 | Emergency (ER) | payer MEDICARE, MEDICAID, SELFPAY ==
[2022-03-16] VITALS (9 sets, daily range): BP systolic 116–148; BP diastolic 54–67; PULSE 55–76; RESP 17–18; TEMP 36.8; O2SAT 91–97; BMI 45.1
--- NOTE | 2022-03-16 09:40 | XR_ITS ---
FINAL REPORT CLINICAL HISTORY: cough COMPARISON: December 29, 2021 FINDINGS: The heart size is normal. Sternotomy wires are present. The lungs are underinflated. There are mild chronic changes in the lung bases. There are no pleural effusions. There is no pneumothorax. There is no osseous abnormality. IMPRESSION: Underinflation with mild chronic changes in the lung bases. Reviewed, Interpreted and Dictated by Bertram Travis MD Transcribed by Marialuisa Galvan Authenticated and [facility]
--- NOTE | 2022-03-16 09:50 | HMH.EDGENADL ---
Discharge Plan Disposition Patient Disposition: Home, Self-Care Condition: Good Chief Complaint: Recheck/Abnormal Lab/Rx Prescriptions Prescriptions: No Action aspirin [Adult Aspirin Regimen] 81 mg tablet,delayed release (DR/EC) 81 mg PO DAILY ascorbate calcium (vitamin C) 500 mg tablet 500 mg PO DAILY [id number]-pbqwujgsx-qoqxfdor 200-62.5-25 mcg blister with device 1 ea PO DAILY Qty: 90 3RF Xarelto 20 mg tablet 20 mg PO QPM Qty: 30 5RF Rx Instructions: administer with evening meal levofloxacin 500 mg tablet 500 mg PO DAILY 5 Days Qty: 5 0RF albuterol sulfate 90 mcg/actuation HFA aerosol inhaler 2 puff INHALATION Q6 Qty: 6.7 3RF omeprazole 20 mg capsule,delayed release(DR/EC) 20 mg PO DAILY Qty: 90 3RF metoclopramide HCl 5 mg tablet See Rx Instructions .ROUTE .COMPLEX Qty: 180 5RF Dose Instruction: TAKE 1 TABLET 2 TIMES EACH DAY FOR STOMACH Rx Instructions: TAKE 1 TABLET 2 TIMES EACH DAY FOR STOMACH Levemir FlexTouch U-100 Insuln 100 unit/mL (3 mL) insulin pen See Rx Instructions .ROUTE .COMPLEX Qty: 195 5RF Dose Instruction: INJECT 96 UNITS UNDER THE SKIN 2 TIMES EACH DAY Rx Instructions: INJECT 96 UNITS UNDER THE SKIN 2 TIMES EACH DAY furosemide 40 mg tablet 40 mg PO BID Qty: 60 5RF ergocalciferol (vitamin D2) 1,250 mcg (50,000 unit) capsule 1,250 mcg PO WEEKLY Qty: 10 2RF clopidogrel 75 mg tablet See Rx Instructions .ROUTE .COMPLEX Qty: 90 2RF Dose Instruction: TAKE 1 TABLET 1 TIME EACH DAY FOR HEART DISEASE Rx Instructions: TAKE 1 TABLET 1 TIME EACH DAY FOR HEART DISEASE levothyroxine 50 mcg tablet See Rx Instructions .ROUTE .COMPLEX Qty: 90 2RF Dose Instruction: TAKE 1 TABLET 1 TIME EACH DAY FOR THYROID Rx Instructions: TAKE 1 TABLET 1 TIME EACH DAY FOR THYROID icosapent ethyl [Vascepa] 1 gram capsule See Rx Instructions .ROUTE .COMPLEX Qty: 360 2RF Dose Instruction: TAKE 2 CAPSULES 2 TIMES EACH DAY FOR HEART DISEASE Rx Instructions: TAKE 2 CAPSULES 2 TIMES EACH DAY FOR HEART DISEASE rosuvastatin 20 mg tablet See Rx Instructions .ROUTE .COMPLEX Qty: 90 2RF Dose Instruction: TAKE 1 TABLET 1 TIME EACH DAY AT BEDTIME FOR CHOLESTEROL Rx Instructions: TAKE 1 TABLET 1 TIME EACH DAY AT BEDTIME FOR CHOLESTEROL buspirone 5 mg tablet See Rx Instructions .ROUTE .COMPLEX Qty: 90 2RF Dose Instruction: TAKE 1 TABLET 1 TIME EACH DAY FOR ANXIETY Rx Instructions: TAKE 1 TABLET 1 TIME EACH DAY FOR ANXIETY citalopram 40 mg tablet See Rx Instructions .ROUTE .COMPLEX Qty: 90 2RF Dose Instruction: TAKE 1 TABLET 1 TIME EACH DAY FOR DEPRESSION Rx Instructions: TAKE 1 TABLET 1 TIME EACH DAY FOR DEPRESSION losartan 100 mg tablet 100 mg PO DAILY Qty: 90 3RF bisoprolol fumarate 10 mg tablet 10 mg PO DAILY Qty: 90 3RF baclofen 10 mg tablet See Rx Instructions .ROUTE .COMPLEX Qty: 60 2RF Dose Instruction: TAKE 1 TABLET 2 TIMES EACH DAY NEEDED FOR MUSCLE PAIN Rx Instructions: TAKE 1 TABLET 2 TIMES EACH DAY NEEDED FOR MUSCLE PAIN albuterol sulfate 1.25 mg/3 mL solution for nebulization 1.25 mg INHALATION QID PRN (Reason: shortness of breath or wheezing) Qty: 90 5RF (DME) pen needle, diabetic [BD Ultra-Fine Short Pen Needle] 31 gauge x 5/16 needle See Rx Instructions .ROUTE .COMPLEX Qty: 300 0RF Dose Instruction: USE TO INJECT INSULIN 5 TIMES EACH DAY Rx Instructions: USE TO INJECT INSULIN 5 TIMES EACH DAY meclizine 25 mg tablet See Rx Instructions .ROUTE .COMPLEX Qty: 60 2RF Dose Instruction: TAKE 1 TABLET 2 TIMES EACH DAY FOR NAUSEA AND VOMITING Rx Instructions: TAKE 1 TABLET 2 TIMES EACH DAY FOR NAUSEA AND VOMITING gabapentin 800 mg tablet 800 mg PO QID 30 Days Qty: 120 1RF hydrocodone-acetaminophen 5-325 mg tablet 1 tab PO QID PRN (Reason
[2022-03-16 10:01] LABS: Microscopic, Urine URINE MICROSCOPIC (MICROSCOPIC)
[2022-03-16 10:02] LABS: Appearance,Urine CLEAR (Clear); Bacteria,Urine 2+ /lpf; Bilirubin,Urine Negative (Negative); Blood, Urine 2+ (Negative); Color,Urine YELLOW (Yellow); Glucose,Urine (UA) Negative (Negative); Ketones,Urine Negative (Negative); Leukocyte Esterase,Urine 1+ (Negative); Nitrate,Urine Negative (Negative); PH,Urine 5.5 (5.0-8.5); Protein,Urine Negative (Negative); Specific Gravity, Urine 1.015 (1.005-1.030); Urobilinogen,Urine 0.2 EU/dl (0.2)
--- NOTE | 2022-03-16 10:41 | ECG_ITS ---
APPROVED REPORT Exam: Resting ECG HR:57 bpm ECG Measurements Heart Rate 57 AXES SC 218 P 60 QRSd 106 QRS 2 QT 442 T 32 QTc 437 Conclusion SINUS BRADYCARDIA WITH MARKED SINUS ARRHYTHMIA WITH FIRST DEGREE AV BLOCK LOW QRS VOLTAGE IN PRECORDIAL LEADS [QRS DEFLECTION < 1.0 mV IN CHEST LEADS] MODERATE ST DEPRESSION [0.05+ mV ST DEPRESSION] ABNORMAL ECG UNCONFIRMED REPORT Electronically signed by : Andrade Pack MD 03/19/2022 08:12:31
--- NOTE | 2022-03-16 10:46 | PC.NURSE ---
rounded on pt to see if they had any needs. Pt stated that other than some pain she didnt need anything. Told her i would let the ER doctor know. Pt ststed Thank you very much.
[2022-03-16 11:03] LABS: Coronavirus 19, PCR Not Detected (NotDetected); Influenza A, PCR Not Detected (NotDetected); Influenza B, PCR Not Detected (NotDetected)
[2022-03-16 11:22] LABS: Basophils # 0.1 K/mm3 (0-0.2); Basophils % 0.5 % (0.1-2.0); Eosinophils # 0.2 K/mm3 (0.0-0.4); Eosinophils % 1.7 % (0.1-12.0); Hematocrit 31.4 % (37.0-47.0); Hemoglobin 9.7 g/dL (12.2-16.2); Lymphocytes % 19.7 % (10-50); Mean Corpuscular HGB Conc 30.8 g/dL (31.8-35.4); Mean Corpuscular Volume 87.4 fl (81-99); Monocytes # 0.6 K/mm3 (0.1-1.0); Monocytes % 6.1 % (1.7-9.3); Neutrophils # 7.4 K/mm3 (1.8-7.8); Platelet Count 282 K/mm3 (142-424); Red Cell Distribution Width 16.6 % (11.5-17.5); White Blood Count 10.3 K/mm3 (4.8-10.8)
[2022-03-16 11:28] LABS: Alanine Aminotransferase 19 U/L (12-78); Albumin Level 3.8 g/dl (3.5-5.0); Albumin/Globulin Ratio 1.1 (1.1-1.8); Alkaline Phosphatase 111 U/L (38-126); Anion Gap 10.2 mEq/L (5-15); Aspartate Amino Transferase 31 U/L (14-36); Blood Urea Nitrogen 39 mg/dl (7-17); Calcium 9.3 mg/dl (8.4-10.2); Carbon Dioxide 28 mmol/L (22.0-30.0); Chloride 106 mmol/L (98-107); Creatinine Clearance Estimated 46 mL/min (50-200); Estimated Glomerular Filt Rate 71 ml/min (>60); GFR (African American) 85 ML/MIN (>60); Globulin 3.5 g/dL (1.3-3.2); Glucose 136 mg/dl (74-100); Potassium 4.2 mmoL/L (3.5-5.1); Sodium 140 mmol/L (136-145); Total Protein,Serum 7.3 g/dl (6.3-8.2)
[2022-03-16 11:30] LABS: Bilirubin,Total < 0.1 mg/dl (0.2-1.3)
[2022-03-16 11:47] LABS: Troponin I < 0.01 ng/ml (0.00-0.034)
--- NOTE | 2022-03-16 12:30 | PC.NURSE ---
rounded on pt. after nurse had asked me to do a glucose test. pt asked for something to drink. checked with the ERdoctor and said they could have some water. delivered the patient from water and asked if they needed anything else. no needs at this time
[2022-03-16 12:31] LABS: POC Glucose,Bedside 127 (70-110)
--- NOTE | 2022-03-16 12:38 | PC.NURSE ---
JACK ACE speaking with lilian moran at this time
--- NOTE | 2022-03-16 12:47 | PC.NURSE ---
contacted ENT office to make appt for pt per ER MD request. Staff states no provider in specialty clinic until next week. ER MD speaking with Dr. Finnegan for POC at this time.
--- NOTE | 2022-03-16 12:49 | PC.NURSE ---
lilian moran called back with instructions for pt based on previous conversation with ER MD. ER MD on the phone with another doctor at this time. Terrell ge aprn states she is okay with leaving a message with instructions. States for pt to CONTINUE Eliquis Discontinue to aspirin and plavix. will notify ER MD
[2022-03-16 13:59] LABS: Troponin I < 0.01 ng/ml (0.00-0.034)
== END 2022-03-16 14:03 | disposition home or self-care (01) ==
PROVIDERS: Emergency Provider Emergency Medicine; PCP Physician Assistant
DX: R04.0 Epistaxis (principal); N39.0 Urinary tract infection, site not specified; B96.20 Unspecified Escherichia coli [E. coli] as the cause of diseases classified elsewhere; R53.1 Weakness; J02.9 Acute pharyngitis, unspecified; I48.91 Unspecified atrial fibrillation; Z79.01 Long term (current) use of anticoagulants
CPT/HCPCS: 36415; 71045; 80053; 81001; 82962; 84484; 85025; 87086; 87088; 87186; 93005; 99283; C9803; U0003; U0005

== ENCOUNTER 2022-04-11 12:37 | Emergency (ER) | payer MEDICARE, MEDICAID, SELFPAY ==
[2022-04-11 12:48] VITALS: BP 103/76; PULSE 65; RESP 20; O2SAT 95; BMI 45.9
[2022-04-11 13:01] VITALS: BP 103/76; PULSE 65; RESP 20; TEMP 36.8; O2SAT 96; BMI 46.0
--- NOTE | 2022-04-11 13:16 | CA_ITS ---
FINAL REPORT TECHNIQUE: Graded compression, spectral analysis and ultrasound images of the venous system of the upper extremity were obtained. CLINICAL HISTORY: pain and swelling in right hand with redness x 2 days, previous use of blood thinners for PAD? patient is poor historian FINDINGS: The right jugular vein, subclavian vein, axillary vein, brachial vein, cephalic vein and basilic venous system are normal, fully compressible and demonstrate no evidence of thrombus. There is only partial compression of the right radial vein consistent with partial DVT. Technologist noted right thyroid mass. IMPRESSION: Partial DVT of the right radial vein. Right thyroid mass. Recommend dedicated thyroid ultrasound. Recommend dedicated thyroid ultrasound. Reviewed, Interpreted and Dictated by Bertram Travis MD Transcribed by Marielena Aguero Authenticated and [facility]
--- NOTE | 2022-04-11 13:17 | XR_ITS ---
FINAL REPORT CLINICAL HISTORY: pain and swelling right hand FINDINGS: RIGHT HAND Three views demonstrate no acute fracture or dislocation. The visualized joint spaces are normally aligned. There is soft tissue swelling overlying the dorsum of the hand. IMPRESSION: Soft tissue swelling without acute bony abnormality. Reviewed, Interpreted and Dictated by Bertram Travis MD Transcribed by Marielena Aguero Authenticated and [facility]
--- NOTE | 2022-04-11 13:17 | EXP.UTC ---
Discharge Plan Disposition Patient Disposition: Home, Self-Care Condition: Good Prescriptions Prescriptions: New Xarelto DVT-PE Treat 30d Start 15 mg (42)- 20 mg (9) tablets,dose pack See Rx Instructions PO .COMPLEX Qty: 51 0RF Rx Instructions: take one-15 mg tablet twice daily for 21 days, then one-20 mg tablet once daily; must take with meal/food No Action aspirin [Adult Aspirin Regimen] 81 mg tablet,delayed release (DR/EC) 81 mg PO DAILY ascorbate calcium (vitamin C) 500 mg tablet 500 mg PO DAILY albuterol sulfate 90 mcg/actuation HFA aerosol inhaler 2 puff INHALATION Q6 Qty: 6.7 3RF omeprazole 20 mg capsule,delayed release(DR/EC) 20 mg PO DAILY Qty: 90 3RF furosemide 40 mg tablet 40 mg PO BID Qty: 60 5RF ergocalciferol (vitamin D2) 1,250 mcg (50,000 unit) capsule 1,250 mcg PO WEEKLY Qty: 10 2RF albuterol sulfate 1.25 mg/3 mL solution for nebulization 1.25 mg INHALATION QID PRN (Reason: shortness of breath or wheezing) Qty: 90 5RF gabapentin 800 mg tablet 800 mg PO QID 30 Days Qty: 120 1RF hydrocodone-acetaminophen 5-325 mg tablet 1 tab PO QID PRN (Reason: pain) Qty: 120 0RF (DME) pen needle, diabetic [BD Ultra-Fine Short Pen Needle] 31 gauge x 5/16 needle See Rx Instructions .ROUTE .COMPLEX Qty: 1200 0RF Dose Instruction: USE TO INJECT INSULIN 5 TIMES EACH DAY Rx Instructions: USE TO INJECT INSULIN 5 TIMES EACH DAY cholecalciferol (vitamin D3) 1,000 UNIT capsule 1,000 unit PO DAILY spironolactone 25 MG tablet 50 mg PO BID metoclopramide HCl 5 mg tablet See Rx Instructions .ROUTE .COMPLEX Rx Instructions: TAKE 1 TABLET 2 TIMES EACH DAY FOR STOMACH meclizine 25 mg tablet See Rx Instructions .ROUTE .COMPLEX Rx Instructions: TAKE 1 TABLET 2 TIMES EACH DAY FOR NAUSEA AND VOMITING losartan 100 mg tablet 100 mg PO DAILY rosuvastatin 20 mg tablet See Rx Instructions .ROUTE .COMPLEX Rx Instructions: TAKE 1 TABLET 1 TIME EACH DAY AT BEDTIME FOR CHOLESTEROL Xarelto 20 mg tablet 20 mg PO QPM Rx Instructions: administer with evening meal baclofen 10 mg tablet See Rx Instructions .ROUTE .COMPLEX Rx Instructions: TAKE 1 TABLET 2 TIMES EACH DAY NEEDED FOR MUSCLE PAIN levothyroxine 50 mcg tablet See Rx Instructions .ROUTE .COMPLEX Rx Instructions: TAKE 1 TABLET 1 TIME EACH DAY FOR THYROID insulin asp prt-insulin aspart [Novolog Mix 70-30FlexPen U-100] 100 unit/mL (70-30) insulin pen See Rx Instructions .ROUTE .COMPLEX Rx Instructions: INJECT 100 UNITS UNDER THE SKIN 3 TIMES EACH DAY WITH MEALS FOR DIABETES Levemir FlexTouch U-100 Insuln 100 unit/mL (3 mL) insulin pen See Rx Instructions .ROUTE .COMPLEX Rx Instructions: INJECT 96 UNITS UNDER THE SKIN 2 TIMES EACH DAY buspirone 5 mg tablet See Rx Instructions .ROUTE .COMPLEX Rx Instructions: TAKE 1 TABLET 1 TIME EACH DAY FOR ANXIETY citalopram 40 mg tablet See Rx Instructions .ROUTE .COMPLEX Rx Instructions: TAKE 1 TABLET 1 TIME EACH DAY FOR DEPRESSION clopidogrel 75 mg tablet See Rx Instructions .ROUTE .COMPLEX Rx Instructions: TAKE 1 TABLET 1 TIME EACH DAY FOR HEART DISEASE bisoprolol fumarate 10 mg tablet 10 mg PO DAILY Trulicity 0.75 mg/0.5 mL pen injector See Rx Instructions .ROUTE .COMPLEX Rx Instructions: INJECT THE CONTENTS OF 1 SYRINGE UNDER THE SKIN 1 TIME EACH WEEK Referrals Follow up/Referrals: Carolyn Bustillos APRN [Nurse Practitioner] - See instructions Nakul Sheehan MD [Primary Care Provider] - See instructions Activity Restrictions/Add. Instructions Additional Instructions/Restrictions: Start Xarelto as advised in the [facility] as prescribed take as directed Do not take the previous prescribed Xarelto take the one that you was prescribed today first until you see your Family Doctor or
[2022-04-11 14:35] VITALS: BP 103/76; PULSE 65; RESP 20; TEMP 36.8
== END 2022-04-11 14:38 | disposition home or self-care (01) ==
PROVIDERS: Emergency Provider Nurse Practitioner; PCP Emergency Medicine
DX: I82.621 Acute embolism and thrombosis of deep veins of right upper extremity (principal)
CPT/HCPCS: 73130; 93971; 99212; G0463

== ENCOUNTER → 2022-05-05 13:40 | Outpatient (CLI) | payer MEDICARE, MEDICAID, SELFPAY ==
--- NOTE | 2022-05-05 14:08 | CA_ITS ---
APPROVED REPORT EXAM: Comprehensive 2D, Doppler, and color-flow Echocardiogram Files Supervisor: Rossana Agustin RT(R) Ht: 5 ft 5 in Wt: 278lbs BSA: 2.28 BP: 118/52 mmHg Indications: SOB, CP, edema, HTN, DM, CHF, GERD, PHTN, AFIB, CABG 2D Dimensions LVOT 2.22 cm (M/F) 1.5-2.5 LA Volume 62.80 mL LA Volume Index 27.66 mL/m2 (M/F) 16-34 M-Mode Dimensions RVDd 2.95 cm (0.9-2.6) LA Diam 5.51 cm (1.9-4.0) LVDd 5.58 cm (3.5-5.7) Ao Diam 2.53 cm (2.0-3.7) LVDs 3.76 cm (3.5-5.7) IVSd 1.02 cm (0.6-1.1) PWd 1.23 cm (0.6-1.1) EF (Teich) 60.40% FS 32.60% EDV (Teich) 152.40 mL ESV (Teich) 60.40 mL LV Diastology E Decel Time 203.00 (160-240 msec) E/A Ratio 1.1 MED E' 7.10 (< 7 cm/sec) E'/MED E' Ratio 24.66 (>14) LAT E' 7.10 (<10 cm/sec) E/LAT E' Ratio 24.66 (>14) Aortic Valve LVOT Max 144.00 (70-110 cm/s) LVOT VTI 36.55 cm AoV Peak Navdeep. 336.00 (50-130 cm/s) AO Peak GR. 45.30 mmHg AO Mean GR. 22.30 (<5 mmHg) AO VTI 79.24 (18-25 cm) JOSH (VTI) 1.79 (2.5-4.5 cm2) Mitral Valve MV E Max Navdeep. 175.00 (40-130 cm/s) MV A Velocity 163.00 (40-130 cm/s) E/A Ratio 1.07 MV Decel. Time 203.00 (160-240 ms) MV PHT 60.00 ms Left Ventricle Left atrium is moderately enlarged, left ventricle is normal size, mild concentric left ventricular hypertrophy, estimated ejection fraction 55% with no regional wall motion abnormality. Endocardial surfaces are poorly visualized. Grade 2 diastolic dysfunction seen with tissue Doppler evidence of raise left atrial pressure. Right Ventricle Right atrium and right ventricle are mildly enlarged with normal contractility. Aortic Valve Aortic valve is thickened and calcified, mean gradient across aortic valve is 23 mmHg, valve area is 1.6 cm??? represents mild aortic stenosis, there is no significant aortic insufficiency. Mitral Valve Mitral valve has mitral calcification extends in both anterior posterior mitral leaflet, there is no significant mitral inflow obstruction, there is mild mitral regurgitation. Tricuspid Valve Tricuspid valve grossly normal, there is mild tricuspid regurgitation, tricuspid regurgitation jet velocity is inadequate for calculation of the right ventricular systolic pressure. Pulmonic Valve Pulmonic valve is poorly visualized. Great Vessels Aortic root is normal size. Inferior vena cava is poorly visualized. Pericardium No significant pericardial effusion noted. Conclusion 1. Biatrial enlargement, normal left ventricular size, mild concentric left ventricular hypertrophy, estimated ejection fraction 55% with no regional wall motion abnormality, grade 2 diastolic dysfunction seen with tissue Doppler evidence of raise left atrial pressure. 2. Thickened and calcified aortic valve with valve area 1.6 cm??? represents mild aortic stenosis, there is no significant aortic insufficiency. 3. Mild mitral and tricuspid regurgitation. 4. No significant pericardial effusion. 5. Inferior vena cava is poorly visualized. Electronically signed by : Sabino Mckinney MD 05/06/2022 12:31:53
--- NOTE | 2022-05-05 14:41 | US_ITS ---
FINAL REPORT CLINICAL HISTORY: thyroid mass on venous duplex FINDINGS: THYROID ULTRASOUND Sonographic images of the thyroid was obtained. The right lobe of the thyroid measures 5.2 x 4.1 x 3.1 cm. The left lobe of the thyroid measures 4.2 x 2.5 x 2.2 cm. The isthmus measures 3 mm. There is a 3.4 cm hypoechoic mass in the right lobe, TI-RADS 4. There is a nodule in the left lobe measuring 2.1 x 1.6 cm which appears to be cystic, TI-RADS 0. There is a smaller cystic focus measuring less than 1 cm in the superior right lobe of the thyroid. IMPRESSION: Dominant mass in the right lobe, TI-RADS 4. Recommend biopsy. Reviewed, Interpreted and Dictated by Bertram Travis MD Transcribed by Lorenza Cotter Authenticated and [facility]
[2022-05-05 16:21] LABS: Anion Gap 14.6 mEq/L (5-15); Blood Urea Nitrogen 29 mg/dl (7-17); Carbon Dioxide 30 mmol/L (22.0-30.0); Chloride 102 mmol/L (98-107); Estimated Glomerular Filt Rate 70 ml/min (>60); GFR (African American) 85 ML/MIN (>60); Potassium 3.6 mmoL/L (3.5-5.1); Sodium 143 mmol/L (136-145)
[2022-05-05 16:49] LABS: Glucose 48 mg/dl (74-100)
== END ==
PROVIDERS: PCP Nurse Practitioner Family; Visit Provider Physician Assistant
DX: R06.09 Other forms of dyspnea; R07.9 Chest pain, unspecified; I25.10 Atherosclerotic heart disease of native coronary artery without angina pectoris; I27.20 Pulmonary hypertension, unspecified; I48.0 Paroxysmal atrial fibrillation; J44.9 Chronic obstructive pulmonary disease, unspecified; K21.9 Gastro-esophageal reflux disease without esophagitis; R60.9 Edema, unspecified; R94.31 Abnormal electrocardiogram [ECG] [EKG]; E07.9 Disorder of thyroid, unspecified; Z95.1 Presence of aortocoronary bypass graft
CPT/HCPCS: 36415; 76536; 80048; 93306

== ENCOUNTER → 2022-05-17 14:56 | Outpatient (CLI) | payer MEDICARE, MEDICAID, SELFPAY ==
--- NOTE | 2022-05-17 15:05 | CA_ITS ---
FINAL REPORT TECHNIQUE: Duplex Doppler and color Doppler were obtained of right upper extremity arterial system. CLINICAL HISTORY: decreased radial pulse FINDINGS: Subclavian artery: 128.5 Axillary artery: 131.9 Brachial artery: 102 Radius: 78 Ulna: 100 Waveforms are biphasic throughout. IMPRESSION: No evidence of significant stenosis or occlusion. Reviewed, Interpreted and Dictated by Armando Price III, MD Transcribed by Latoya Quiroga Authenticated and [facility]
== END ==
PROVIDERS: PCP Physician Assistant; Visit Provider Physician Assistant
DX: R09.89 Other specified symptoms and signs involving the circulatory and respiratory systems (principal)
CPT/HCPCS: 93931

== ENCOUNTER → 2022-05-27 08:22 | Outpatient (CLI) | payer MEDICARE, MEDICAID, SELFPAY ==
--- NOTE | 2022-05-27 08:22 | US_ITS ---
FINAL REPORT CLINICAL HISTORY: Large thyroid nodule FINDINGS: Ultrasound guided thyroid biopsy. HISTORY: Thyroid mass. PROCEDURE: After informed consent was obtained and a time-out was performed, the patient was prepped and draped in usual sterile fashion over the anterior neck. Utilizing local anesthesia and sterile technique with a 25-gauge needle, access to the lesion was obtained. Four passes were made. The patient received no conscious sedation. The patient tolerated procedure well and left the department in good condition. IMPRESSION: Status post ultrasound guided biopsy of a thyroid nodule without immediate complication. Films reviewed , interpreted and dictated by Dr. Price Transcribed by Derrick Abrams PA-C. Reviewed, Interpreted and Dictated by Armando Price III, MD Transcribed by OMAR Liu Authenticated and . [facility]
== END ==
LOC: RAD 08:22
PROVIDERS: PCP Physician Assistant; Visit Provider Physician Assistant
DX: E04.1 Nontoxic single thyroid nodule (principal)
CPT/HCPCS: 10021; 76536; 76942

== ENCOUNTER → 2022-06-01 16:17 | Outpatient (CLI) | payer MEDICARE, MEDICAID, SELFPAY | LOC: SL 16:20 | PROVIDERS: PCP Physician Assistant; Visit Provider Nurse Practitioner Family | DX: I27.20 Pulmonary hypertension, unspecified (principal); G47.33 Obstructive sleep apnea (adult) (pediatric); G47.34 Idiopathic sleep related nonobstructive alveolar hypoventilation | CPT/HCPCS: 94762 ==

== ENCOUNTER → 2022-07-05 18:50 | Outpatient (CLI) | payer MEDICARE, MEDICAID, SELFPAY | PROVIDERS: PCP Physician Assistant; Visit Provider Nurse Practitioner Family | DX: R06.09 Other forms of dyspnea (principal) | CPT/HCPCS: 94762 ==

== ENCOUNTER → 2022-07-06 10:16 | Outpatient (CLI) | payer MEDICARE, MEDICAID, SELFPAY ==
[2022-07-06 10:40] LABS: ABG Base Excess -3.1 mmol/L (-2.4-2.3); ABG HCO3 22.4 mmhg (22.0-26.0); ABG Oxygen Saturation 92 % (90-100); ABG PCO2 40.6 mmhg (35.0-45.0); ABG PH 7.36 mmol/L (7.35-7.45); ABG PO2 72.8 mmhg (80-100); ABG TCO2 23.6 mmhg (23-27)
[2022-07-06 10:45] LABS: Allen's Test ACCEPTABLE; Oxygen 2.5 LPM %; Source Right Radial
== END ==
PROVIDERS: PCP Physician Assistant; Visit Provider Nurse Practitioner Family
DX: J96.11 Chronic respiratory failure with hypoxia (principal); J44.9 Chronic obstructive pulmonary disease, unspecified; I27.20 Pulmonary hypertension, unspecified; G47.10 Hypersomnia, unspecified
CPT/HCPCS: 82803

== ENCOUNTER → 2022-07-11 20:10 | Outpatient (CLI) | payer MEDICARE, MEDICAID, SELFPAY | PROVIDERS: PCP Physician Assistant; Visit Provider Nurse Practitioner Family | DX: G47.33 Obstructive sleep apnea (adult) (pediatric) (principal); G47.34 Idiopathic sleep related nonobstructive alveolar hypoventilation; J44.9 Chronic obstructive pulmonary disease, unspecified | CPT/HCPCS: 95811 ==

== ENCOUNTER 2022-07-31 21:14 | Observation (INO) | payer MEDICARE, MEDICAID, SELFPAY ==
[2022-07-31 21:14] VITALS: BP 144/58; PULSE 61; RESP 18; TEMP 37.1; O2SAT 94; BMI 45.1
[2022-07-31 21:31] VITALS: BP 131/50; PULSE 59; O2SAT 98
--- NOTE | 2022-07-31 21:55 | HMH.EDEPIS ---
Discharge Plan Disposition Patient Disposition: Admitted as Observation Chief Complaint: Epistaxis Prescriptions Prescriptions: No Action ascorbate calcium (vitamin C) 500 mg tablet 500 mg PO DAILY furosemide [Lasix] 40 mg tablet 40 mg PO BID albuterol sulfate 1.25 mg/3 mL solution for nebulization 1.25 mg INHALATION QID PRN (Reason: shortness of breath or wheezing) Qty: 270 3RF albuterol sulfate 90 mcg/actuation HFA aerosol inhaler 2 puff INHALATION Q6 Qty: 6.7 3RF gabapentin 800 mg tablet 800 mg PO QID 30 Days Qty: 120 1RF hydrocodone-acetaminophen 5-325 mg tablet 1 tab PO QID PRN (Reason: pain) Qty: 120 0RF cholecalciferol (vitamin D3) 1,000 UNIT capsule 1,000 unit PO DAILY metoclopramide HCl 5 mg tablet 5 mg PO BID losartan 100 mg tablet 100 mg PO DAILY rosuvastatin 20 mg tablet See Rx Instructions .ROUTE .COMPLEX Rx Instructions: TAKE 1 TABLET 1 TIME EACH DAY AT BEDTIME FOR CHOLESTEROL Xarelto 20 mg tablet 20 mg PO QPM Rx Instructions: administer with evening meal levothyroxine 50 mcg tablet See Rx Instructions .ROUTE .COMPLEX Rx Instructions: TAKE 1 TABLET 1 TIME EACH DAY FOR THYROID Levemir FlexTouch U-100 Insuln 100 unit/mL (3 mL) insulin pen 46 unit SQ BID buspirone 5 mg tablet See Rx Instructions .ROUTE .COMPLEX Rx Instructions: TAKE 1 TABLET 1 TIME EACH DAY FOR ANXIETY citalopram 40 mg tablet See Rx Instructions .ROUTE .COMPLEX Rx Instructions: TAKE 1 TABLET 1 TIME EACH DAY FOR DEPRESSION clopidogrel 75 mg tablet See Rx Instructions .ROUTE .COMPLEX Rx Instructions: TAKE 1 TABLET 1 TIME EACH DAY FOR HEART DISEASE bisoprolol fumarate 10 mg tablet 10 mg PO DAILY meclizine 25 mg tablet 25 mg PO TID baclofen 10 mg tablet See Rx Instructions .ROUTE .COMPLEX Rx Instructions: TAKE 1 TABLET 2 TIMES EACH DAY NEEDED FOR MUSCLE PAIN omeprazole 20 mg capsule,delayed release(DR/EC) See Rx Instructions .ROUTE .COMPLEX Rx Instructions: TAKE 1 CAPSULE 1 TIME EACH DAY FOR REFLUX ergocalciferol (vitamin D2) [Vitamin D2] 1,250 mcg (50,000 unit) capsule See Rx Instructions .ROUTE .COMPLEX Rx Instructions: TAKE 1 CAPSULE 1 TIME EACH WEEK spironolactone [Aldactone] 50 mg tablet 25 mg PO BID (DME) pen needle, diabetic [BD Ultra-Fine Short Pen Needle] 31 gauge x 5/16 needle See Rx Instructions .ROUTE .COMPLEX Rx Instructions: USE TO INJECT INSULIN 5 TIMES EACH DAY insulin asp prt-insulin aspart [Novolog Mix 70-30FlexPen U-100] 100 unit/mL (70-30) insulin pen See Rx Instructions .ROUTE .COMPLEX Rx Instructions: INJECT 100 UNITS UNDER THE SKIN 3 TIMES EACH DAY WITH MEALS FOR DIABETES Trulicity 0.75 mg/0.5 mL pen injector See Rx Instructions .ROUTE .COMPLEX Rx Instructions: INJECT THE CONTENTS OF 1 SYRINGE UNDER THE SKIN 1 TIME EACH WEEK Trelegy Ellipta 200-62.5-25 mcg blister with device 1 inh inhalation DAILY Discharge ED Provider: Nakul Sheehan Epistaxis HPI General Chief complaint: Epistaxis Stated complaint: nose bleed Time Seen by Provider: 07/31/22 21:55 Mode of Arrival: EMS Source of Information: Patient, Relative, EMS and Medical Record Limitations: No Limitations Description of Symptoms (Recalled from ER Triage Doc. by RN): pt c/o nose bleed that started 2 hr ago. pt on plavix History of Present Illness HPI Narrative: pt with rt sided nose bleed over the last 2 hrs - pt on plavix and xarelto - complaint: epistaxis Location: right nostril Onset (ago): hour(s) Duration: intermittent Context: history of previous and other anticoagulant use Treatment prior to arrival: nose pinching and head leaned forward Related Data Home Medications Medication Instructions Recorded Confirmed cholecalciferol (vitamin D3) 25 1,000 unit PO DAILY Diet supplement 08/11
[2022-07-31 22:01] VITALS: BP 130/86; PULSE 59; O2SAT 88
[2022-07-31 22:31] VITALS: BP 122/56; PULSE 54; O2SAT 100
[2022-07-31 23:00] VITALS: BP 141/59
[2022-07-31 23:58] LABS: Appearance,Urine CLEAR (Clear); Bilirubin,Urine Negative (Negative); Blood, Urine Negative (Negative); Color,Urine YELLOW (Yellow); Glucose,Urine (UA) Negative (Negative); Ketones,Urine Negative (Negative); Leukocyte Esterase,Urine TRACE (Negative); Microscopic, Urine URINE MICROSCOPIC (MICROSCOPIC); Nitrate,Urine Negative (Negative); Protein,Urine Negative (Negative); Urobilinogen,Urine 0.2 EU/dl (0.2)
[2022-08-01] VITALS (20 sets, daily range): BP systolic 115–157; BP diastolic 51–97; PULSE 52–81; RESP 16–20; TEMP 37–37.1; O2SAT 90–100; BMI 45.3
[2022-08-01 00:07] LABS: Bacteria,Urine Trace /lpf; RBC,Urine Occasional #/hpf (0-3); Squamous Epithelial Cell,Urine Occasional #/hpf (0-5)
[2022-08-01 00:27] LABS: Basophils % 0.4 % (0.1-2.0); Eosinophils # 0.2 K/mm3 (0.0-0.4); Eosinophils % 2.1 % (0.1-12.0); Hemoglobin 9.2 g/dL (12.2-16.2); Lymphocytes # 2.5 K/mm3 (0.7-4.5); Lymphocytes % 27.4 % (10-50); Mean Corpuscular HGB Conc 32.8 g/dL (31.8-35.4); Mean Corpuscular Hemoglobin 24.5 pg (27.0-31.2); Mean Corpuscular Volume 74.6 fl (81-99); Mean Platelet Volume 7.5 fl (7.4-10.4); Monocytes # 0.5 K/mm3 (0.1-1.0); Monocytes % 5.8 % (1.7-9.3); Neutrophils # 5.8 K/mm3 (1.8-7.8); Neutrophils % 64.3 % (37.0-80.0); Platelet Count 275 K/mm3 (142-424); Red Blood Count 3.76 M/mm3 (4.20-5.40); Red Cell Distribution Width 19.5 % (11.5-17.5)
[2022-08-01 00:29] LABS: Chloride 102 mmol/L (98-107); Potassium 4.4 mmoL/L (3.5-5.1); Sodium 142 mmol/L (136-145)
[2022-08-01 00:32] LABS: Alanine Aminotransferase 17 U/L (12-78); Albumin Level 4.1 g/dl (3.5-5.0); Albumin/Globulin Ratio 1.1 (1.1-1.8); Alkaline Phosphatase 90 U/L (38-126); Anion Gap 12.4 mEq/L (5-15); Aspartate Amino Transferase 24 U/L (14-36); Bilirubin,Total 0.4 mg/dl (0.2-1.3); Blood Urea Nitrogen 62 mg/dl (7-17); Calcium 9.1 mg/dl (8.4-10.2); Carbon Dioxide 32 mmol/L (22.0-30.0); Creatinine Clearance Estimated 30 mL/min (50-200); Estimated Glomerular Filt Rate 34 ml/min (>60); GFR (African American) 41 ML/MIN (>60); Globulin 3.7 g/dL (1.3-3.2); Glucose 67 mg/dl (74-100); Total Protein,Serum 7.8 g/dl (6.3-8.2)
[2022-08-01 01:22] LABS: Coronavirus 19, PCR Not Detected (NotDetected); Influenza A, PCR Not Detected (NotDetected); Influenza B, PCR Not Detected (NotDetected)
[2022-08-01 01:37] LABS: Iron 93 ug/dL (37-170)
[2022-08-01 01:46] LABS: Total Iron Binding Capacity 475 ug/dL (265-497)
--- NOTE | 2022-08-01 02:08 | EXP.HP ---
History of Present Illness *Admission Date: 08/01/22 *Reason for visit:: Nose Bleed *History of present illness: Ms. Armas is a 72-year-old female with a past medical history of Atrial Fibrillation on chronic anticoagulation, CHF with preserved EF, COPD, ERICKSON wears home BIPAP q hs, HTN, Hyperlipidemia. She presents to [facility] due to acute onset of nose bleed that occurred approximately 2 hours prior to presentation. She had it packed in the ER. Creatinine was elevated at 1.5 with no prior history of CKD. ER physician wanted admitted for evaluation. Daughter reports that over the last month that the patient has had episodes of urinating on herself or dribbling on the floor prior to getting to the bathroom. Daughter denies any fevers or confusion. In the ER, Urinalysis showed 3-5 WBC and trace bacteria but was otherwise normal. The patient will be admitted with initial impression: REDD, urine sodium and urine creatinine will be ordered to calculate FeNa. A post-void bladder scan was ordered given patient's incontinence to look for retention as possible cause of REDD. She will be treated empirically to cover for UTI while we await on cultures. The plan of care was discussed with the patient and daughter on admission. Both verbalized understanding and agreement with the plan of care. [facility] Disclaimer: The information contained in this section may have been updated after the patient was seen, as this information can be updated by other users. Medical History Abnormal PFT Anxiety Atypical angina Bilateral swelling of feet CHF (congestive heart failure) Chronic hypoxemic respiratory failure Chronic pain COPD (chronic obstructive pulmonary disease) Coronary artery disease Depression Diabetes mellitus Diabetic gastroparesis associated with type 2 diabetes mellitus Diabetic neuropathy associated with type 2 diabetes mellitus Diarrhea Dyspnea Dyspnea on exertion GERD (gastroesophageal reflux disease) History of 2019 novel coronavirus disease (COVID-19) Hyperlipidemia Hypertension Hypothyroidism IDDM (insulin dependent diabetes mellitus) Lumbar disc disease Lumbar disc disease with radiculopathy Lumbar radiculopathy Lumbar radiculopathy, chronic Lumbar radiculopathy, chronic ERICKSON (obstructive sleep apnea) Proliferative diabetic retinopathy Pulmonary HTN Pulmonary hypertension Restrictive lung disease Sciatica associated with disorder of lumbar spine Sleep disorder breathing Stopped smoking with greater than 30 pack year history Vertigo Vitamin D deficiency Weakness Surgical History History of cataract surgery History of eye surgery History of heart valve replacement History of lumpectomy Family History Other Cancer Diabetes Heart attack Hyperlipidemia Hypertension Stroke Thyroid disorder Social History Smoking Status: Unknown if ever smoked second hand exposure: No alcohol intake: never substance use type: denies use current occupational status: unemployed Travel in the last 8 weeks: None household members: children housing: house current occupational exposures/hazards: No caffeine: Yes Review of Systems Review of Systems Review of systems:: pertinent systems reviewed and negative unless documented below Constitutional Constitutional: Reports system reviewed and no additional complaints, except as documented Eyes Eyes: Reports system reviewed and no additional complaints, except as documented ENT Comments: Nose Bleed *Cardiovascular Cardiovascular: Reports system reviewed and no additional complaints, except as documented *Respiratory Respiratory: Reports system reviewed and no additional complaints, except as documented *Gastrointestinal Gastr
[2022-08-01 05:57] LABS: Creatinine,Urine Random 39 mg/dL (Not Estab.)
[2022-08-01 06:10] LABS: POC Glucose,Bedside 118 (70-110)
--- NOTE | 2022-08-01 08:12 | PC.NURSE ---
RESP CARE NOTE: Pt having episode of epitaxis, her nasal passage has been packed to prevent bleeding. Use of BIPAP is a contraindicated for BIPAP at this time, due to foreign object in nasal airway. Will continue to monitor patient.
[2022-08-01 08:26] LABS: Alanine Aminotransferase 14 U/L (12-78); Albumin Level 3.5 g/dl (3.5-5.0); Albumin/Globulin Ratio 1.3 (1.1-1.8); Alkaline Phosphatase 85 U/L (38-126); Anion Gap 10.1 mEq/L (5-15); Aspartate Amino Transferase 19 U/L (14-36); Bilirubin,Total 0.2 mg/dl (0.2-1.3); Blood Urea Nitrogen 55 mg/dl (7-17); Calcium 8.4 mg/dl (8.4-10.2); Carbon Dioxide 31 mmol/L (22.0-30.0); Chloride 105 mmol/L (98-107); Creatinine Clearance Estimated 35 mL/min (50-200); Estimated Glomerular Filt Rate 40 ml/min (>60); GFR (African American) 49 ML/MIN (>60); Globulin 2.8 g/dL (1.3-3.2); Glucose 111 mg/dl (74-100); Potassium 4.1 mmoL/L (3.5-5.1); Sodium 142 mmol/L (136-145); Total Protein,Serum 6.3 g/dl (6.3-8.2)
[2022-08-01 08:27] LABS: Basophils % 0.3 % (0.1-2.0); Eosinophils # 0.2 K/mm3 (0.0-0.4); Eosinophils % 1.8 % (0.1-12.0); Hematocrit 27.1 % (37.0-47.0); Hemoglobin 8.7 g/dL (12.2-16.2); Lymphocytes # 2.7 K/mm3 (0.7-4.5); Lymphocytes % 25.8 % (10-50); Mean Corpuscular HGB Conc 32.2 g/dL (31.8-35.4); Mean Corpuscular Hemoglobin 24.5 pg (27.0-31.2); Mean Corpuscular Volume 75.9 fl (81-99); Mean Platelet Volume 7.8 fl (7.4-10.4); Monocytes # 0.6 K/mm3 (0.1-1.0); Monocytes % 5.3 % (1.7-9.3); Neutrophils # 6.9 K/mm3 (1.8-7.8); Neutrophils % 66.7 % (37.0-80.0); Platelet Count 261 K/mm3 (142-424); Red Blood Count 3.57 M/mm3 (4.20-5.40); Red Cell Distribution Width 19.4 % (11.5-17.5); White Blood Count 10.4 K/mm3 (4.8-10.8)
--- NOTE | 2022-08-01 08:30 | PC.NURSE ---
pt being transported to assigned room per second floor staff
--- NOTE | 2022-08-01 14:23 | HMH.PHAINT1 ---
Pharmacy Intervention Comments: Home medication list verified via external fill history. -Deepti Matos, PharmD Candidate 2022
--- NOTE | 2022-08-01 14:26 | EXP.DC.SUM ---
General Admission date:: 08/01/22 HPI HPI HPI: Ms. Armas is a 72-year-old female with a past medical history of Atrial Fibrillation on chronic anticoagulation, CHF with preserved EF, COPD, ERICKSON wears home BIPAP q hs, HTN, Hyperlipidemia. She presents to [facility] due to acute onset of nose bleed that occurred approximately 2 hours prior to presentation. She had it packed in the ER. Creatinine was elevated at 1.5 with no prior history of CKD. ER physician wanted admitted for evaluation. Daughter reports that over the last month that the patient has had episodes of urinating on herself or dribbling on the floor prior to getting to the bathroom. Daughter denies any fevers or confusion. In the ER, Urinalysis showed 3-5 WBC and trace bacteria but was otherwise normal. The patient will be admitted with initial impression: REDD, urine sodium and urine creatinine will be ordered to calculate FeNa. A post-void bladder scan was ordered given patient's incontinence to look for retention as possible cause of REDD. She will be treated empirically to cover for UTI while we await on cultures. The plan of care was discussed with the patient and daughter on admission. Both verbalized understanding and agreement with the plan of care. Hospital Course Hospital Course Hospital Course: Patient was admitted for REDD. Received fluid resuscitation. Balloon tamponade placed in right nares for bleed and stopped bleeding. Creatinine increased with fluids. We will follow-up outpatient with ENT for balloon removal. Exam Data for Last 24 hours Vital signs and Labs for Last 24 Hours: Temp Pulse Resp BP Pulse Ox 98.6 F 81 18 130/58 L 93 L 08/01/22 12:00 08/01/22 12:00 08/01/22 12:00 08/01/22 12:00 08/01/22 12:00 Laboratory Results - last 24 hr 07/31/22 23:52: Urine Color Yellow, Urine Appearance Clear, Urine pH 5.0, Ur Specific [place] 1.020, Urine Protein Negative, Urine Glucose (UA) Negative, Urine Ketones Negative, Urine Blood Negative, Urine Nitrate Negative, Urine Bilirubin Negative, Urine Urobilinogen 0.2, Ur Leukocyte Esterase Trace, Urine RBC Occasional, Urine WBC 3-5, Ur Squamous Epith Cells Occasional, Urine Bacteria Trace 07/31/22 23:52: Urine Creatinine 39 08/01/22 00:18: WBC 9.0, RBC 3.76 L, Hgb 9.2 L, Hct 28.0 L, MCV 74.6 L, MCH 24.5 L, MCHC 32.8, RDW 19.5 H, Plt Count 275, MPV 7.5, Neut % (Auto) 64.3, Lymph % (Auto) 27.4, [place] % (Auto) 5.8, Eos % (Auto) 2.1, Baso % (Auto) 0.4, Neut # (Auto) 5.8, Lymph # (Auto) 2.5, [place] # (Auto) 0.5, Eos # (Auto) 0.2, Baso # (Auto) 0.0 08/01/22 00:18: Sodium 142, Potassium 4.4, Chloride 102, Carbon Dioxide 32 H, Anion Gap 12.4, BUN 62 H, Creatinine 1.50 H, Estimated Creat Clear 30, Estimated GFR 34 L, Est GFR ( Amer) 41 L, Glucose 67 L, Calcium 9.1, Total Bilirubin 0.4, AST 24, ALT 17, Alkaline Phosphatase 90, Total Protein 7.8, Albumin 4.1, Globulin 3.7 H, Albumin/Globulin Ratio 1.1 08/01/22 00:18: Iron 93, TIBC 475, Iron Saturation [id number] 08/01/22 01:16: SARS-CoV-2 (PCR) Not detected, Influenza A Untype (PCR) Not detected, Influenza Type B (PCR) Not detected 08/01/22 06:03: POC Glucose 118 H 08/01/22 06:31: WBC 10.4, RBC 3.57 L, Hgb 8.7 L, Hct 27.1 L, MCV 75.9 L, MCH 24.5 L, MCHC 32.2, RDW 19.4 H, Plt Count 261, MPV 7.8, Neut % (Auto) 66.7, Lymph % (Auto) 25.8, Glasscock % (Auto) 5.3, Eos % (Auto) 1.8, Baso % (Auto) 0.3, Neut # (Auto) 6.9, Lymph # (Auto) 2.7, Glasscock # (Auto) 0.6, Eos # (Auto) 0.2, Baso # (Auto) 0.0 08/01/22 06:31: Sodium 142, Potassium 4.1, Chloride 105, Carbon Dioxide 31 H, Anion Gap 10.1, BUN 55 H, Creatinine 1.30 H, Estimated Creat Clear 35, Estimated GFR 40 L, Est GFR ( Amer) 49 L, Glucose 111 H D, Calcium 8.4, Total Bilirubin 0.2, AST 19, ALT 14, Alkaline Phosphatase 85, Total Protein 6.3, Albumin 3.5 D, Globulin 2.8, Albumin/Globulin Ratio 1.3 I & O for Last 24 hours: Intake & Output 07/29/22 07/30/22 07/31/22 08/01/22 23:59 23:59 23:59 23:59
--- NOTE | 2022-08-01 15:04 | HMH.PHAINT1 ---
Pharmacy Intervention Comments: Met with patient and [id number] at bedside to discuss discharge medications. Spoke mostly with [id number], who manages the patient's medications. Reviewed medications, indications, possible adverse effects, and mitigation strategies. Patient and family verbalized understanding of the information provided and had no questions or concerns at this time. -Deepti Matos, PharmD Candidate 2022
[2022-08-02 09:21] LABS: Sodium, Urine 99 mmol/L (Not Estab.)
--- NOTE | 2022-08-02 14:46 | CARE MANAGER ---
Contacted patient's family. She states patient is doing ok. She is still having pain with her nose. She reports hard to use Bipap at night due to balloon. Follows up with ENT tomorrow. Denies questions or concerns. CHRISTIANE Goode
[2022-08-02 16:32] LABS: POC Glucose,Bedside 155 (70-110)
== END 2022-08-01 15:24 | disposition home or self-care (01) ==
LOC: ER 21:53 → 2ND 08-01 01:13 → ICU 08-01 09:52
PROVIDERS: Nurse Practitioner Family; Admitting Provider Student in an Organized Health Care Education/Training Program; Emergency Provider Emergency Medicine; PCP Physician Assistant; Visit Provider Student in an Organized Health Care Education/Training Program
DX: N17.9 Acute kidney failure, unspecified (principal); Z79.01 Long term (current) use of anticoagulants; I48.91 Unspecified atrial fibrillation; G47.33 Obstructive sleep apnea (adult) (pediatric); J44.9 Chronic obstructive pulmonary disease, unspecified; R04.0 Epistaxis; Z79.4 Long term (current) use of insulin; E03.9 Hypothyroidism, unspecified; E55.9 Vitamin D deficiency, unspecified; Z86.16 Personal history of COVID-19; I25.10 Atherosclerotic heart disease of native coronary artery without angina pectoris; I11.0 Hypertensive heart disease with heart failure; I50.9 Heart failure, unspecified; E11.42 Type 2 diabetes mellitus with diabetic polyneuropathy; E11.43 Type 2 diabetes mellitus with diabetic autonomic (poly)neuropathy; K31.84 Gastroparesis; J96.11 Chronic respiratory failure with hypoxia; E11.3599 Type 2 diabetes mellitus with proliferative diabetic retinopathy without macular edema, unspecified eye; Z79.899 Other long term (current) drug therapy; Z20.822 Contact with and (suspected) exposure to COVID-19
CPT/HCPCS: 30901; G0378; 80053; 81001; 82570; 82962; 83540; 83550; 84300; 85025; 94640; 99285; C9803; J1956; J2405; U0003; U0005

== ENCOUNTER 2022-09-12 12:17 | Emergency (ER) | payer MEDICARE, MEDICAID, SELFPAY ==
[2022-09-12 12:18] VITALS: BP 133/71; PULSE 69; RESP 19; TEMP 36.6; O2SAT 95; BMI 45.9
--- NOTE | 2022-09-12 12:29 | XR_ITS ---
FINAL REPORT CLINICAL HISTORY: FB in mid anteriolateral area rt humerus. FINDINGS: RIGHT HUMERUS 2 views of the right humerus were obtained. There is no acute fracture or dislocation. There are mild degenerative changes of the shoulder. There is an 8 mm linear foreign body in the anterolateral mid upper arm subcutaneous tissues. IMPRESSION: 8 mm linear foreign body in the anterolateral mid upper arm subcutaneous tissues No acute bony abnormality. Reviewed, Interpreted and Dictated by Armando Price III, MD Transcribed by Lorenza Cotter Authenticated and [facility]
--- NOTE | 2022-09-12 12:51 | HMH.EDGENADL ---
Discharge Plan Disposition Patient Disposition: Home, Self-Care Prescriptions Prescriptions: No Action ascorbate calcium (vitamin C) 500 mg tablet 500 mg PO DAILY furosemide [Lasix] 40 mg tablet 40 mg PO BID albuterol sulfate 1.25 mg/3 mL solution for nebulization 1.25 mg INHALATION QID PRN (Reason: shortness of breath or wheezing) Qty: 270 3RF baclofen 10 mg tablet 10 mg PO BID PRN (Reason: Muscle Pain) Qty: 60 1RF Rx Instructions: TAKE 1 TABLET 2 TIMES EACH DAY NEEDED FOR MUSCLE PAIN levofloxacin 250 mg tablet 250 mg PO DAILY Qty: 3 0RF Levemir FlexTouch U-100 Insuln 100 unit/mL (3 mL) insulin pen See Rx Instructions .ROUTE .COMPLEX Qty: 195 5RF Dose Instruction: INJECT 96 UNITS UNDER THE SKIN 2 TIMES EACH DAY Rx Instructions: INJECT 96 UNITS UNDER THE SKIN 2 TIMES EACH DAY metoclopramide HCl 5 mg tablet See Rx Instructions .ROUTE .COMPLEX Qty: 180 5RF Dose Instruction: TAKE 1 TABLET 2 TIMES EACH DAY FOR STOMACH Rx Instructions: TAKE 1 TABLET 2 TIMES EACH DAY FOR STOMACH gabapentin 800 mg tablet 800 mg PO QID 30 Days Qty: 120 1RF hydrocodone-acetaminophen 5-325 mg tablet 1 tab PO QID PRN (Reason: pain) Qty: 120 0RF Xarelto 20 mg tablet 20 mg PO QPM Qty: 90 3RF Rx Instructions: administer with evening meal insulin asp prt-insulin aspart [Novolog Mix 70-30FlexPen U-100] 100 unit/mL (70-30) insulin pen See Rx Instructions .ROUTE .COMPLEX Qty: 15 3RF Dose Instruction: INJECT 100 UNITS UNDER THE SKIN 3 TIMES EACH DAY WITH MEALS FOR DIABETES Rx Instructions: INJECT 100 UNITS UNDER THE SKIN 3 TIMES EACH DAY WITH MEALS FOR DIABETES levothyroxine 50 mcg tablet See Rx Instructions .ROUTE .COMPLEX Qty: 90 2RF Dose Instruction: TAKE 1 TABLET 1 TIME EACH DAY FOR THYROID Rx Instructions: TAKE 1 TABLET 1 TIME EACH DAY FOR THYROID cholecalciferol (vitamin D3) 1,000 UNIT capsule 1,000 unit PO DAILY losartan 100 mg tablet 100 mg PO DAILY rosuvastatin 20 mg tablet 20 mg PO HS Rx Instructions: TAKE 1 TABLET 1 TIME EACH DAY AT BEDTIME FOR CHOLESTEROL buspirone 5 mg tablet 5 mg PO DAILY Rx Instructions: TAKE 1 TABLET 1 TIME EACH DAY FOR ANXIETY citalopram 40 mg tablet 40 mg PO DAILY Rx Instructions: TAKE 1 TABLET 1 TIME EACH DAY FOR DEPRESSION clopidogrel 75 mg tablet 75 mg PO DAILY Rx Instructions: TAKE 1 TABLET 1 TIME EACH DAY FOR HEART DISEASE bisoprolol fumarate 10 mg tablet 10 mg PO DAILY meclizine 25 mg tablet 25 mg PO BID omeprazole 20 mg capsule,delayed release(DR/EC) 20 mg PO DAILY Rx Instructions: TAKE 1 CAPSULE 1 TIME EACH DAY FOR REFLUX ergocalciferol (vitamin D2) [Vitamin D2] 1,250 mcg (50,000 unit) capsule 1,250 mcg PO WEEKLY Rx Instructions: TAKE 1 CAPSULE 1 TIME EACH WEEK spironolactone [Aldactone] 50 mg tablet 50 mg PO BID Trulicity 0.75 mg/0.5 mL pen injector 0.75 mg SQ WEEKLY Rx Instructions: INJECT THE CONTENTS OF 1 SYRINGE UNDER THE SKIN 1 TIME EACH WEEK Trelegy Ellipta 200-62.5-25 mcg blister with device 1 inh inhalation DAILY lorazepam 0.5 mg tablet 0.5 mg PO BID PRN (Reason: Anxiety) Label Comments: TAKE 1 TABLET 2 TIMES EACH DAY NEEDED FOR ANXIETY albuterol sulfate 90 mcg/actuation HFA aerosol inhaler 2 inh INHALATION Q6H PRN (Reason: Shortness Of Breath Or Wheezing) Label Comments: INHALE 2 TIMES 4 TIMES EACH DAY NEEDED FOR SHORTNESS OF BREATH OR WHEEZING icosapent ethyl [Vascepa] 1 gram capsule 2 g PO BID Label Comments: TAKE 2 CAPSULES 2 TIMES EACH DAY FOR HEART DISEASE Referrals Follow up/Referrals: Hilary Bagley PA [Primary Care Provider] - See instructions Activity Restrictions/Add. Instructions Additional Instructions/Restrictions: There is no obvious evidence on your x-rays or a be
[2022-09-12 13:03] VITALS: BP 133/73; PULSE 71; RESP 19; TEMP 36.7; O2SAT 97
== END 2022-09-12 13:06 | disposition home or self-care (01) ==
PROVIDERS: Emergency Provider Student in an Organized Health Care Education/Training Program; PCP Physician Assistant
DX: S41.141A Puncture wound with foreign body of right upper arm, initial encounter (principal); W46.0XXA Contact with hypodermic needle, initial encounter; I50.9 Heart failure, unspecified; F41.9 Anxiety disorder, unspecified; J44.9 Chronic obstructive pulmonary disease, unspecified; E11.9 Type 2 diabetes mellitus without complications; Z79.4 Long term (current) use of insulin; K21.9 Gastro-esophageal reflux disease without esophagitis; I11.0 Hypertensive heart disease with heart failure
CPT/HCPCS: 73060; 99284

== ENCOUNTER → 2022-10-21 10:53 | Outpatient (CLI) | payer MEDICARE, MEDICAID, SELFPAY | PROVIDERS: PCP Physician Assistant; Visit Provider Internal Medicine | DX: R06.09 Other forms of dyspnea; Z95.1 Presence of aortocoronary bypass graft; I20.8 Other forms of angina pectoris | CPT/HCPCS: 78452; 93017; A9502; J2785 ==

== ENCOUNTER → 2022-11-07 14:16 | Outpatient (CLI) | payer MEDICARE, MEDICAID, SELFPAY ==
[2022-11-07 19:22] LABS: Basophils % 0.3 % (0.1-2.0); Eosinophils # 0.2 K/mm3 (0.0-0.4); Eosinophils % 1.7 % (0.1-12.0); Hematocrit 31.6 % (37.0-47.0); Lymphocytes # 2.7 K/mm3 (0.7-4.5); Lymphocytes % 21.1 % (10-50); Mean Corpuscular HGB Conc 31.5 g/dL (31.8-35.4); Mean Corpuscular Hemoglobin 24.3 pg (27.0-31.2); Mean Corpuscular Volume 77.4 fl (81-99); Mean Platelet Volume 8.7 fl (7.4-10.4); Monocytes # 0.6 K/mm3 (0.1-1.0); Monocytes % 4.4 % (1.7-9.3); Neutrophils # 9.2 K/mm3 (1.8-7.8); Neutrophils % 72.5 % (37.0-80.0); Platelet Count 298 K/mm3 (142-424); Red Blood Count 4.09 M/mm3 (4.20-5.40); White Blood Count 12.7 K/mm3 (4.8-10.8)
[2022-11-07 20:05] LABS: Alanine Aminotransferase 19 U/L (12-78); Albumin Level 3.8 g/dl (3.5-5.0); Albumin/Globulin Ratio 1.3 (1.1-1.8); Alkaline Phosphatase 111 U/L (38-126); Anion Gap 11.3 mEq/L (5-15); Aspartate Amino Transferase 22 U/L (14-36); Bilirubin,Total 0.3 mg/dl (0.2-1.3); Blood Urea Nitrogen 62 mg/dl (7-17); Calcium 8.8 mg/dl (8.4-10.2); Carbon Dioxide 24 mmol/L (22.0-30.0); Chloride 103 mmol/L (98-107); Chol/HDL Ratio 4.3 (1-3.5); Cholesterol 86 mg/dl (140-200); Estimated Glomerular Filt Rate 40 ml/min (>60); GFR (African American) 49 ML/MIN (>60); Glucose 141 mg/dl (74-100); HDL Cholesterol 20 mg/dl (40-60); Potassium 4.3 mmoL/L (3.5-5.1); Sodium 134 mmol/L (136-145); Total Protein,Serum 6.8 g/dl (6.3-8.2); Triglycerides 222 mg/dl (30-150); VLDL Cholesterol 44 mg/dL (0-40)
[2022-11-07 20:07] LABS: Hemoglobin A1C 5.6 % (4.0-6.0)
[2022-11-07 20:35] LABS: Thyroid Stimulating Hormone 3.12 uIU/mL (0.465-4.68)
== END ==
PROVIDERS: PCP Physician Assistant; Visit Provider Physician Assistant
DX: Z79.4 Long term (current) use of insulin; R19.7 Diarrhea, unspecified; E11.65 Type 2 diabetes mellitus with hyperglycemia
CPT/HCPCS: 80053; 80061; 83036; 84443; 85025

== ENCOUNTER → 2022-11-07 23:25 | Outpatient (CLI) | payer MEDICARE, MEDICAID, SELFPAY | PROVIDERS: PCP Physician Assistant; Visit Provider Physician Assistant | DX: R19.7 Diarrhea, unspecified (principal) ==

== ENCOUNTER 2022-11-28 18:32 | Emergency (ER) | payer MEDICARE, MEDICAID, SELFPAY ==
--- NOTE | 2022-11-28 18:30 | ECG_ITS ---
APPROVED REPORT Exam: Resting ECG HR:64 bpm ECG Measurements Heart Rate 64 AXES DC 204 P 50 QRSd 108 QRS 8 QT 418 T 35 QTc 427 Conclusion SINUS RHYTHM WITH SINUS ARRHYTHMIA LOW QRS VOLTAGE IN PRECORDIAL LEADS [QRS DEFLECTION < 1.0 mV IN CHEST LEADS] INCOMPLETE RIGHT BUNDLE BRANCH BLOCK [90+ ms QRS DURATION, TERMINAL R IN V1/V2, 40+ ms S IN I/aVL/V4/V5/V6] MODERATE ST DEPRESSION [0.05+ mV ST DEPRESSION] ABNORMAL ECG UNCONFIRMED REPORT Electronically signed by : Andrade Pack MD 11/29/2022 22:06:06
[2022-11-28 18:32] VITALS: BP 141/54; PULSE 63; RESP 18; TEMP 36.6; O2SAT 99; BMI 45.4
--- NOTE | 2022-11-28 18:36 | XR_ITS ---
PROCEDURE INFORMATION: Exam: XR Chest Exam date and time: 11/28/2022 6:58 PM Age: 72 years old Clinical indication: Sternal or substernal pain; Prior surgery; Surgery date: 6+ months; Surgery type: Open heart 2007; Additional info: Chest pain TECHNIQUE: Imaging protocol: Radiologic exam of the chest. Views: 1 view. COMPARISON: CR XR CHEST PORTABLE 03/16/2022 9:59 AM FINDINGS: Lungs: Unremarkable. No consolidation. Pleural spaces: Unremarkable. No pleural effusion. No pneumothorax. Heart/Mediastinum: Unremarkable. No cardiomegaly. Bones/joints: Moderate degenerative changes noted in the spine and shoulders. Sternotomy wires remain in place. IMPRESSION: No acute disease
[2022-11-28 18:42] VITALS: PULSE 63; RESP 16; O2SAT 96
--- NOTE | 2022-11-28 18:44 | PC.NURSE ---
XR AT BEDSIDE
[2022-11-28 18:46] LABS: Basophils % 0.3 % (0.1-2.0); Eosinophils # 0.2 K/mm3 (0.0-0.4); Eosinophils % 1.8 % (0.1-12.0); Hematocrit 29.7 % (37.0-47.0); Hemoglobin 9.7 g/dL (12.2-16.2); Lymphocytes # 2.1 K/mm3 (0.7-4.5); Mean Corpuscular HGB Conc 32.5 g/dL (31.8-35.4); Mean Corpuscular Hemoglobin 24.7 pg (27.0-31.2); Mean Platelet Volume 7.9 fl (7.4-10.4); Monocytes # 0.6 K/mm3 (0.1-1.0); Monocytes % 5.5 % (1.7-9.3); Neutrophils # 8.6 K/mm3 (1.8-7.8); Neutrophils % 74.3 % (37.0-80.0); Platelet Count 285 K/mm3 (142-424); Red Blood Count 3.91 M/mm3 (4.20-5.40); Red Cell Distribution Width 17.8 % (11.5-17.5); White Blood Count 11.5 K/mm3 (4.8-10.8)
[2022-11-28 18:56] LABS: Alanine Aminotransferase 20 U/L (12-78); Albumin/Globulin Ratio 1.1 (1.1-1.8); Alkaline Phosphatase 95 U/L (38-126); Anion Gap 17.2 mEq/L (5-15); Aspartate Amino Transferase 23 U/L (14-36); Bilirubin,Total 0.2 mg/dl (0.2-1.3); Blood Urea Nitrogen 45 mg/dl (7-17); Calcium 9.5 mg/dl (8.4-10.2); Carbon Dioxide 32 mmol/L (22.0-30.0); Chloride 95 mmol/L (98-107); Creatinine Clearance Estimated 38 mL/min (50-200); Estimated Glomerular Filt Rate 44 ml/min (>60); GFR (African American) 53 ML/MIN (>60); Globulin 3.6 g/dL (1.3-3.2); Glucose 105 mg/dl (74-100); Potassium 4.2 mmoL/L (3.5-5.1); Sodium 140 mmol/L (136-145); Total Protein,Serum 7.6 g/dl (6.3-8.2)
[2022-11-28 19:01] VITALS: BP 121/49; PULSE 58; O2SAT 97
[2022-11-28 19:09] LABS: Troponin I < 0.01 ng/ml (0.00-0.034)
--- NOTE | 2022-11-28 19:20 | HMH.EDGENADL ---
Discharge Plan Disposition Patient Disposition: Home, Self-Care Prescriptions Prescriptions: No Action ascorbate calcium (vitamin C) 500 mg tablet 500 mg PO DAILY ondansetron 8 mg tablet,disintegrating 8 mg PO Q8H PRN (Reason: nausea and vomiting) Qty: 30 0RF bisoprolol fumarate 5 mg tablet 5 mg PO DAILY insulin asp prt-insulin aspart [Novolog Mix 70-30FlexPen U-100] 100 unit/mL (70-30) insulin pen 80 unit SQ DAILY zinc acetate 50 mg (zinc) capsule 50 mg PO DAILY furosemide [Lasix] 40 mg tablet 40 mg PO BID losartan 50 mg tablet 50 mg PO DAILY Qty: 30 2RF Levemir FlexTouch U100 Insulin 100 unit/mL (3 mL) insulin pen See Rx Instructions .ROUTE .COMPLEX Qty: 195 5RF Dose Instruction: INJECT 96 UNITS UNDER THE SKIN 2 TIMES EACH DAY Rx Instructions: INJECT 96 UNITS UNDER THE SKIN 2 TIMES EACH DAY metoclopramide HCl 5 mg tablet See Rx Instructions .ROUTE .COMPLEX Qty: 180 5RF Dose Instruction: TAKE 1 TABLET 2 TIMES EACH DAY FOR STOMACH Rx Instructions: TAKE 1 TABLET 2 TIMES EACH DAY FOR STOMACH Xarelto 20 mg tablet 20 mg PO QPM Qty: 90 3RF Rx Instructions: administer with evening meal levothyroxine 50 mcg tablet See Rx Instructions .ROUTE .COMPLEX Qty: 90 2RF Dose Instruction: TAKE 1 TABLET 1 TIME EACH DAY FOR THYROID Rx Instructions: TAKE 1 TABLET 1 TIME EACH DAY FOR THYROID buspirone 5 mg tablet See Rx Instructions .ROUTE .COMPLEX Qty: 90 2RF Dose Instruction: TAKE 1 TABLET 1 TIME EACH DAY FOR ANXIETY Rx Instructions: TAKE 1 TABLET 1 TIME EACH DAY FOR ANXIETY citalopram 40 mg tablet See Rx Instructions .ROUTE .COMPLEX Qty: 90 2RF Dose Instruction: TAKE 1 TABLET 1 TIME EACH DAY FOR DEPRESSION Rx Instructions: TAKE 1 TABLET 1 TIME EACH DAY FOR DEPRESSION rosuvastatin 20 mg tablet See Rx Instructions .ROUTE .COMPLEX Qty: 90 2RF Dose Instruction: TAKE 1 TABLET 1 TIME EACH DAY AT BEDTIME FOR CHOLESTEROL Rx Instructions: TAKE 1 TABLET 1 TIME EACH DAY AT BEDTIME FOR CHOLESTEROL clopidogrel 75 mg tablet See Rx Instructions .ROUTE .COMPLEX Qty: 90 2RF Dose Instruction: TAKE 1 TABLET 1 TIME EACH DAY FOR HEART DISEASE Rx Instructions: TAKE 1 TABLET 1 TIME EACH DAY FOR HEART DISEASE meclizine 25 mg tablet See Rx Instructions .ROUTE .COMPLEX Qty: 60 2RF Dose Instruction: TAKE 1 TABLET 2 TIMES EACH DAY FOR NAUSEA AND VOMITING Rx Instructions: TAKE 1 TABLET 2 TIMES EACH DAY FOR NAUSEA AND VOMITING Trulicity 0.75 mg/0.5 mL pen injector See Rx Instructions .ROUTE .COMPLEX Qty: 2 2RF Dose Instruction: INJECT THE CONTENTS OF 1 SYRINGE UNDER THE SKIN 1 TIME EACH WEEK Rx Instructions: INJECT THE CONTENTS OF 1 SYRINGE UNDER THE SKIN 1 TIME EACH WEEK baclofen 10 mg tablet See Rx Instructions .ROUTE .COMPLEX Qty: 60 1RF Dose Instruction: TAKE 1 TABLET 2 TIMES EACH DAY NEEDED FOR MUSCLE PAIN Rx Instructions: TAKE 1 TABLET 2 TIMES EACH DAY NEEDED FOR MUSCLE PAIN gabapentin 800 mg tablet 800 mg PO QID 30 Days Qty: 120 1RF hydrocodone-acetaminophen 5-325 mg tablet 1 tab PO QID PRN (Reason: pain) Qty: 120 0RF cholecalciferol (vitamin D3) 1,000 UNIT capsule 1,000 unit PO DAILY omeprazole 20 mg capsule,delayed release(DR/EC) 20 mg PO DAILY Rx Instructions: TAKE 1 CAPSULE 1 TIME EACH DAY FOR REFLUX ergocalciferol (vitamin D2) [Vitamin D2] 1,250 mcg (50,000 unit) capsule 1,250 mcg PO WEEKLY Rx Instructions: TAKE 1 CAPSULE 1 TIME EACH WEEK spironolactone [Aldactone] 50 mg tablet 50 mg PO BID Trelegy Ellipta 200-62.5-25 mcg blister with device 1 inh inhalation DAILY lorazepam 0.5 mg tablet 0.5 mg PO BID PRN (Reason: Anxiety) Label Comments: TAKE 1 TABLET 2 TIMES EACH DAY NEEDED FOR ANXIETY albuterol sulfate 90 mcg/actuation HFA aer
[2022-11-28 19:31] VITALS: BP 129/55; PULSE 56; RESP 21; O2SAT 98
[2022-11-28 19:45] LABS: NT Pro Brain Natriuretic Pep. 323 pg/mL (0-125)
[2022-11-28 20:01] VITALS: BP 144/56; PULSE 53; RESP 23; O2SAT 99
[2022-11-28 20:57] LABS: Microscopic, Urine URINE MICROSCOPIC (MICROSCOPIC)
[2022-11-28 21:19] LABS: Appearance,Urine CLEAR (Clear); Bilirubin,Urine Negative (Negative); Blood, Urine Negative (Negative); Color,Urine YELLOW (Yellow); Glucose,Urine (UA) Negative (Negative); Ketones,Urine Negative (Negative); Leukocyte Esterase,Urine Negative (Negative); Nitrate,Urine Negative (Negative); PH,Urine 5.5 (5.0-8.5); Protein,Urine Negative (Negative); Urobilinogen,Urine 0.2 EU/dl (0.2)
[2022-11-28 21:30] LABS: Troponin I < 0.01 ng/ml (0.00-0.034)
[2022-11-28 22:05] VITALS: BP 126/57; PULSE 61; RESP 50; TEMP 36.6; O2SAT 98
== END 2022-11-28 22:13 | disposition home or self-care (01) ==
PROVIDERS: Emergency Provider Emergency Medicine; PCP Physician Assistant
DX: R07.9 Chest pain, unspecified (principal); I48.91 Unspecified atrial fibrillation; Z87.891 Personal history of nicotine dependence
CPT/HCPCS: 51702; 71045; 80053; 81001; 83880; 84484; 85025; 93005; 96374; 96376; 99285

== ENCOUNTER 2022-12-17 21:25 | Emergency (ER) | payer MEDICARE, MEDICAID, SELFPAY ==
[2022-12-17 21:26] VITALS: BP 147/46; PULSE 76; RESP 22; TEMP 37.4; O2SAT 86; BMI 43.9
[2022-12-17 21:42] VITALS: BMI 43.9
--- NOTE | 2022-12-17 21:42 | XR_ITS ---
PROCEDURE INFORMATION: Exam: XR Chest Exam date and time: 12/17/2022 9:49 PM Age: 72 years old Clinical indication: Cough TECHNIQUE: Imaging protocol: Radiologic exam of the chest. Views: 1 view. COMPARISON: CR XR CHEST PORTABLE 11/28/2022 6:58 PM FINDINGS: Lungs: Examination is limited by body habitus. Retrocardiac opacity. Pleural spaces: Blunting of the left costophrenic sulcus. No pneumothorax. Heart/Mediastinum: Stable cardiac contours. Bones/joints: Median sternotomy wires. No acute abnormality. IMPRESSION: Retrocardiac opacity which may be on the basis of atelectasis or pneumonia. Follow-up to radiographic clearance is recommended.
[2022-12-17 21:52] LABS: Basophils % 0.3 % (0.1-2.0); Eosinophils # 0.2 K/mm3 (0.0-0.4); Hematocrit 27.7 % (37.0-47.0); Hemoglobin 8.9 g/dL (12.2-16.2); Lymphocytes # 1.6 K/mm3 (0.7-4.5); Mean Corpuscular HGB Conc 32.3 g/dL (31.8-35.4); Mean Corpuscular Hemoglobin 24.2 pg (27.0-31.2); Mean Corpuscular Volume 74.8 fl (81-99); Mean Platelet Volume 8.6 fl (7.4-10.4); Monocytes # 0.5 K/mm3 (0.1-1.0); Monocytes % 6.1 % (1.7-9.3); Neutrophils # 6.1 K/mm3 (1.8-7.8); Neutrophils % 72.6 % (37.0-80.0); Platelet Count 252 K/mm3 (142-424); Red Cell Distribution Width 17.9 % (11.5-17.5); White Blood Count 8.3 K/mm3 (4.8-10.8)
[2022-12-17 21:54] LABS: Chloride 99 mmol/L (98-107); Potassium 3.8 mmoL/L (3.5-5.1); Sodium 140 mmol/L (136-145)
[2022-12-17 21:56] LABS: Alanine Aminotransferase 23 U/L (12-78); Aspartate Amino Transferase 26 U/L (14-36); Blood Urea Nitrogen 46 mg/dl (7-17); Creatinine Clearance Estimated 41 mL/min (50-200); Estimated Glomerular Filt Rate 49 ml/min (>60); GFR (African American) 59 ML/MIN (>60)
[2022-12-17 21:57] LABS: Albumin Level 3.9 g/dl (3.5-5.0); Albumin/Globulin Ratio 1.1 (1.1-1.8); Alkaline Phosphatase 97 U/L (38-126); Anion Gap 15.8 mEq/L (5-15); Calcium 9.1 mg/dl (8.4-10.2); Carbon Dioxide 29 mmol/L (22.0-30.0); Globulin 3.5 g/dL (1.3-3.2); Glucose 107 mg/dl (74-100); Total Protein,Serum 7.4 g/dl (6.3-8.2)
[2022-12-17 22:01] VITALS: BP 134/50; PULSE 59; O2SAT 96
[2022-12-17 22:11] LABS: Bilirubin,Total 0.1 mg/dl (0.2-1.3)
--- NOTE | 2022-12-17 22:15 | PC.NURSE ---
Pt assisted to bedside toilet. Urine sample collected and sent to lab
[2022-12-17 22:24] LABS: Microscopic, Urine URINE MICROSCOPIC (MICROSCOPIC)
[2022-12-17 22:24] LABS: Erythrocyte Sedimentation Rate > 140 mm/hr (0-30)
[2022-12-17 22:25] LABS: Appearance,Urine CLEAR (Clear); Bilirubin,Urine Negative (Negative); Blood, Urine Negative (Negative); Color,Urine YELLOW (Yellow); Glucose,Urine (UA) Negative (Negative); Ketones,Urine Negative (Negative); Leukocyte Esterase,Urine Negative (Negative); Nitrate,Urine Negative (Negative); PH,Urine 5.5 (5.0-8.5); Protein,Urine Negative (Negative); Urobilinogen,Urine 0.2 EU/dl (0.2)
[2022-12-17 22:34] LABS: Procalcitonin 0.103 ng/mL (0.0-2.0)
[2022-12-17 22:35] LABS: Bacteria,Urine Trace /lpf; RBC,Urine Occasional #/hpf (0-3)
--- NOTE | 2022-12-17 22:52 | HMH.EDEPIS ---
Discharge Plan Disposition Patient Disposition: Home, Self-Care Prescriptions Prescriptions: No Action ascorbate calcium (vitamin C) 500 mg tablet 500 mg PO DAILY ondansetron 8 mg tablet,disintegrating 8 mg PO Q8H PRN (Reason: nausea and vomiting) Qty: 30 0RF bisoprolol fumarate 5 mg tablet 5 mg PO DAILY zinc acetate 50 mg (zinc) capsule 50 mg PO DAILY furosemide [Lasix] 40 mg tablet 40 mg PO BID losartan 50 mg tablet 50 mg PO DAILY Qty: 30 2RF Levemir FlexTouch U100 Insulin 100 unit/mL (3 mL) insulin pen See Rx Instructions .ROUTE .COMPLEX Qty: 195 5RF Dose Instruction: INJECT 96 UNITS UNDER THE SKIN 2 TIMES EACH DAY Rx Instructions: INJECT 96 UNITS UNDER THE SKIN 2 TIMES EACH DAY metoclopramide HCl 5 mg tablet See Rx Instructions .ROUTE .COMPLEX Qty: 180 5RF Dose Instruction: TAKE 1 TABLET 2 TIMES EACH DAY FOR STOMACH Rx Instructions: TAKE 1 TABLET 2 TIMES EACH DAY FOR STOMACH Xarelto 20 mg tablet 20 mg PO QPM Qty: 90 3RF Rx Instructions: administer with evening meal levothyroxine 50 mcg tablet See Rx Instructions .ROUTE .COMPLEX Qty: 90 2RF Dose Instruction: TAKE 1 TABLET 1 TIME EACH DAY FOR THYROID Rx Instructions: TAKE 1 TABLET 1 TIME EACH DAY FOR THYROID buspirone 5 mg tablet See Rx Instructions .ROUTE .COMPLEX Qty: 90 2RF Dose Instruction: TAKE 1 TABLET 1 TIME EACH DAY FOR ANXIETY Rx Instructions: TAKE 1 TABLET 1 TIME EACH DAY FOR ANXIETY citalopram 40 mg tablet See Rx Instructions .ROUTE .COMPLEX Qty: 90 2RF Dose Instruction: TAKE 1 TABLET 1 TIME EACH DAY FOR DEPRESSION Rx Instructions: TAKE 1 TABLET 1 TIME EACH DAY FOR DEPRESSION rosuvastatin 20 mg tablet See Rx Instructions .ROUTE .COMPLEX Qty: 90 2RF Dose Instruction: TAKE 1 TABLET 1 TIME EACH DAY AT BEDTIME FOR CHOLESTEROL Rx Instructions: TAKE 1 TABLET 1 TIME EACH DAY AT BEDTIME FOR CHOLESTEROL clopidogrel 75 mg tablet See Rx Instructions .ROUTE .COMPLEX Qty: 90 2RF Dose Instruction: TAKE 1 TABLET 1 TIME EACH DAY FOR HEART DISEASE Rx Instructions: TAKE 1 TABLET 1 TIME EACH DAY FOR HEART DISEASE meclizine 25 mg tablet See Rx Instructions .ROUTE .COMPLEX Qty: 60 2RF Dose Instruction: TAKE 1 TABLET 2 TIMES EACH DAY FOR NAUSEA AND VOMITING Rx Instructions: TAKE 1 TABLET 2 TIMES EACH DAY FOR NAUSEA AND VOMITING Katharineity 0.75 mg/0.5 mL pen injector See Rx Instructions .ROUTE .COMPLEX Qty: 2 2RF Dose Instruction: INJECT THE CONTENTS OF 1 SYRINGE UNDER THE SKIN 1 TIME EACH WEEK Rx Instructions: INJECT THE CONTENTS OF 1 SYRINGE UNDER THE SKIN 1 TIME EACH WEEK baclofen 10 mg tablet See Rx Instructions .ROUTE .COMPLEX Qty: 60 1RF Dose Instruction: TAKE 1 TABLET 2 TIMES EACH DAY NEEDED FOR MUSCLE PAIN Rx Instructions: TAKE 1 TABLET 2 TIMES EACH DAY NEEDED FOR MUSCLE PAIN gabapentin 800 mg tablet 800 mg PO QID 30 Days Qty: 120 1RF insulin asp prt-insulin aspart [Novolog Mix 70-30FlexPen U-100] 100 unit/mL (70-30) insulin pen See Rx Instructions .ROUTE .COMPLEX Qty: 15 3RF Dose Instruction: INJECT 100 UNITS UNDER THE SKIN 3 TIMES EACH DAY WITH MEALS FOR DIABETES Rx Instructions: INJECT 100 UNITS UNDER THE SKIN 3 TIMES EACH DAY WITH MEALS FOR DIABETES hydrocodone-acetaminophen 5-325 mg tablet 1 tab PO QID PRN (Reason: pain) Qty: 120 0RF cholecalciferol (vitamin D3) 1,000 UNIT capsule 1,000 unit PO DAILY omeprazole 20 mg capsule,delayed release(DR/EC) 20 mg PO DAILY Rx Instructions: TAKE 1 CAPSULE 1 TIME EACH DAY FOR REFLUX ergocalciferol (vitamin D2) [Vitamin D2] 1,250 mcg (50,000 unit) capsule 1,250 mcg PO WEEKLY Rx Instructions: TAKE 1 CAPSULE 1 TIME EACH WEEK spironolactone [Aldactone] 50 mg tablet 50 mg PO BID Trelegy Ellipta 200-62.5-25 mcg blister with
[2022-12-17 23:01] VITALS: BP 130/49
--- NOTE | 2022-12-17 23:17 | PC.NURSE ---
Rounded on pt. No needs at this time.
[2022-12-17 23:26] VITALS: BP 96/75; PULSE 59; O2SAT 93
--- NOTE | 2022-12-17 23:27 | PC.NURSE ---
Pt readjusted in bed for comfort. No other needs voiced at this time.
[2022-12-18 00:02] VITALS: BP 124/48; O2SAT 95
[2022-12-18 00:31] VITALS: BP 131/56; PULSE 56; O2SAT 94
--- NOTE | 2022-12-18 00:44 | PC.NURSE ---
Dr. Sheehan at
--- NOTE | 2022-12-18 00:50 | PC.NURSE ---
[facility] large rhino rocket in rt nostril @ this time
[2022-12-18 01:00] VITALS: BP 133/55
[2022-12-18 01:18] LABS: NT Pro Brain Natriuretic Pep. 354 pg/mL (0-125)
[2022-12-18 01:31] VITALS: BP 127/42
[2022-12-18 02:00] VITALS: BP 135/62
[2022-12-18 02:41] VITALS: BP 148/74; PULSE 64; RESP 18; TEMP 37.1; O2SAT 95
== END 2022-12-18 03:06 | disposition home or self-care (01) ==
PROVIDERS: Emergency Provider Emergency Medicine; PCP Physician Assistant
DX: R04.0 Epistaxis (principal); J44.9 Chronic obstructive pulmonary disease, unspecified; I13.0 Hypertensive heart and chronic kidney disease with heart failure and stage 1 through stage 4 chronic kidney disease, or unspecified chronic kidney disease; N18.9 Chronic kidney disease, unspecified; I50.9 Heart failure, unspecified; Z79.01 Long term (current) use of anticoagulants; Z87.891 Personal history of nicotine dependence
CPT/HCPCS: 30901; 71045; 80053; 81001; 83880; 84145; 85025; 85651; 86140; 99284; 99285

== ENCOUNTER → 2023-02-07 13:05 | Outpatient (CLI) | payer MEDICARE, MEDICAID, SELFPAY | LOC: RT 13:06 | PROVIDERS: PCP Physician Assistant; Visit Provider Internal Medicine Pulmonary Disease | DX: R06.02 Shortness of breath (principal) | CPT/HCPCS: 94060 ==

== ENCOUNTER 2023-03-09 21:07 | Emergency (ER) | payer MEDICARE, MEDICAID, SELFPAY ==
[2023-03-09 21:07] VITALS: BP 138/55; PULSE 57; RESP 16; TEMP 36.4; O2SAT 94; BMI 44.2
[2023-03-09 21:12] VITALS: BP 138/53; PULSE 56; RESP 16; O2SAT 100
[2023-03-09 21:19] LABS: POC Glucose,Bedside 120 (70-110)
[2023-03-09 21:32] VITALS: BP 109/50; PULSE 54; RESP 18; O2SAT 96
[2023-03-09 21:36] LABS: Basophils % 0.3 % (0.1-2.0); Eosinophils # 0.1 K/mm3 (0.0-0.4); Eosinophils % 1.4 % (0.1-12.0); Hematocrit 27.1 % (37.0-47.0); Hemoglobin 8.4 g/dL (12.2-16.2); Lymphocytes # 1.3 K/mm3 (0.7-4.5); Lymphocytes % 12.6 % (10-50); Mean Corpuscular HGB Conc 31.2 g/dL (31.8-35.4); Mean Corpuscular Hemoglobin 22.6 pg (27.0-31.2); Mean Corpuscular Volume 72.5 fl (81-99); Mean Platelet Volume 7.4 fl (7.4-10.4); Monocytes # 0.7 K/mm3 (0.1-1.0); Monocytes % 6.8 % (1.7-9.3); Neutrophils # 8.2 K/mm3 (1.8-7.8); Platelet Count 278 K/mm3 (142-424); Red Blood Count 3.74 M/mm3 (4.20-5.40); White Blood Count 10.4 K/mm3 (4.8-10.8)
[2023-03-09 21:40] LABS: Alanine Aminotransferase 22 U/L (12-78); Albumin Level 3.8 g/dl (3.5-5.0); Albumin/Globulin Ratio 1.1 (1.1-1.8); Alkaline Phosphatase 101 U/L (38-126); Anion Gap 14.8 mEq/L (5-15); Aspartate Amino Transferase 24 U/L (14-36); Blood Urea Nitrogen 47 mg/dl (7-17); Calcium 8.9 mg/dl (8.4-10.2); Carbon Dioxide 31 mmol/L (22.0-30.0); Chloride 96 mmol/L (98-107); Creatinine Clearance Estimated 41 mL/min (50-200); Estimated Glomerular Filt Rate 49 ml/min (>60); GFR (African American) 59 ML/MIN (>60); Globulin 3.6 g/dL (1.3-3.2); Glucose 124 mg/dl (74-100); Potassium 3.8 mmoL/L (3.5-5.1); Sodium 138 mmol/L (136-145); Total Protein,Serum 7.4 g/dl (6.3-8.2)
[2023-03-09 21:47] LABS: Bilirubin,Total < 0.1 mg/dl (0.2-1.3)
--- NOTE | 2023-03-09 21:58 | PC.NURSE ---
rounded on pt. no needs at this time, visitor at bs, call light within reach
[2023-03-09 22:01] VITALS: BP 134/64; PULSE 52; RESP 20; O2SAT 97
[2023-03-09 22:20] LABS: POC Glucose,Bedside 107 (70-110)
--- NOTE | 2023-03-09 22:23 | HMH.EDGENADL ---
Discharge Plan Disposition Patient Disposition: Home, Self-Care Condition: Good Prescriptions Prescriptions: No Action ascorbate calcium (vitamin C) 500 mg tablet 500 mg PO DAILY ondansetron 8 mg tablet,disintegrating 8 mg PO Q8H PRN (Reason: nausea and vomiting) Qty: 30 0RF bisoprolol fumarate 5 mg tablet 5 mg PO DAILY zinc acetate 50 mg (zinc) capsule 50 mg PO DAILY fluticasone furoate-vilanterol [Breo Ellipta] 100-25 mcg/dose blister with device 1 inh inhalation DAILY Qty: 90 2RF baclofen 10 mg tablet See Rx Instructions .ROUTE .COMPLEX Qty: 60 1RF Dose Instruction: TAKE 1 TABLET 2 TIMES EACH DAY NEEDED FOR MUSCLE PAIN Rx Instructions: TAKE 1 TABLET 2 TIMES EACH DAY NEEDED FOR MUSCLE PAIN gabapentin 800 mg tablet 800 mg PO QID 30 Days Qty: 120 1RF losartan 50 mg tablet 50 mg PO DAILY Qty: 30 2RF Levemir FlexTouch U100 Insulin 100 unit/mL (3 mL) insulin pen See Rx Instructions .ROUTE .COMPLEX Qty: 195 5RF Dose Instruction: INJECT 96 UNITS UNDER THE SKIN 2 TIMES EACH DAY Rx Instructions: INJECT 96 UNITS UNDER THE SKIN 2 TIMES EACH DAY metoclopramide HCl 5 mg tablet See Rx Instructions .ROUTE .COMPLEX Qty: 180 5RF Dose Instruction: TAKE 1 TABLET 2 TIMES EACH DAY FOR STOMACH Rx Instructions: TAKE 1 TABLET 2 TIMES EACH DAY FOR STOMACH Xarelto 20 mg tablet 20 mg PO QPM Qty: 90 3RF Rx Instructions: administer with evening meal levothyroxine 50 mcg tablet See Rx Instructions .ROUTE .COMPLEX Qty: 90 2RF Dose Instruction: TAKE 1 TABLET 1 TIME EACH DAY FOR THYROID Rx Instructions: TAKE 1 TABLET 1 TIME EACH DAY FOR THYROID buspirone 5 mg tablet See Rx Instructions .ROUTE .COMPLEX Qty: 90 2RF Dose Instruction: TAKE 1 TABLET 1 TIME EACH DAY FOR ANXIETY Rx Instructions: TAKE 1 TABLET 1 TIME EACH DAY FOR ANXIETY citalopram 40 mg tablet See Rx Instructions .ROUTE .COMPLEX Qty: 90 2RF Dose Instruction: TAKE 1 TABLET 1 TIME EACH DAY FOR DEPRESSION Rx Instructions: TAKE 1 TABLET 1 TIME EACH DAY FOR DEPRESSION rosuvastatin 20 mg tablet See Rx Instructions .ROUTE .COMPLEX Qty: 90 2RF Dose Instruction: TAKE 1 TABLET 1 TIME EACH DAY AT BEDTIME FOR CHOLESTEROL Rx Instructions: TAKE 1 TABLET 1 TIME EACH DAY AT BEDTIME FOR CHOLESTEROL clopidogrel 75 mg tablet See Rx Instructions .ROUTE .COMPLEX Qty: 90 2RF Dose Instruction: TAKE 1 TABLET 1 TIME EACH DAY FOR HEART DISEASE Rx Instructions: TAKE 1 TABLET 1 TIME EACH DAY FOR HEART DISEASE meclizine 25 mg tablet See Rx Instructions .ROUTE .COMPLEX Qty: 60 2RF Dose Instruction: TAKE 1 TABLET 2 TIMES EACH DAY FOR NAUSEA AND VOMITING Rx Instructions: TAKE 1 TABLET 2 TIMES EACH DAY FOR NAUSEA AND VOMITING ergocalciferol (vitamin D2) [Vitamin D2] 1,250 mcg (50,000 unit) capsule See Rx Instructions .ROUTE .COMPLEX Qty: 10 2RF Dose Instruction: TAKE 1 CAPSULE 1 TIME EACH WEEK Rx Instructions: TAKE 1 CAPSULE 1 TIME EACH WEEK Trulicity 0.75 mg/0.5 mL pen injector See Rx Instructions .ROUTE .COMPLEX Qty: 2 2RF Dose Instruction: INJECT THE CONTENTS OF 1 SYRINGE UNDER THE SKIN 1 TIME EACH WEEK Rx Instructions: INJECT THE CONTENTS OF 1 SYRINGE UNDER THE SKIN 1 TIME EACH WEEK (DME) pen needle, diabetic [Ultra-Thin II Ins Pen [place]] 29 gauge x 1/2 needle See Rx Instructions .Route Qty: 100 0RF Rx Instructions: As directed furosemide [Lasix] 40 mg tablet 40 mg PO BID Qty: 60 3RF (DME) pen needle, diabetic [BD Ultra-Fine Short Pen Needle] 31 gauge x 5/16 needle See Rx Instructions .Route Qty: 1200 0RF Rx Instructions: Use to inject insulin 5 times a day insulin asp prt-insulin aspart [Novolog Mix 70-30FlexPen U-100] 100 unit/mL (70-30) insulin pen See Rx Instructions .ROUTE .COMPLEX Qty: 15 3RF Dose In
[2023-03-09 23:34] LABS: POC Glucose,Bedside 93 (70-110)
[2023-03-10 00:23] VITALS: BP 153/88; PULSE 54; RESP 18; TEMP 36.4; O2SAT 97
[2023-03-10 00:25] LABS: POC Glucose,Bedside 90 (70-110)
== END 2023-03-10 00:38 | disposition home or self-care (01) ==
PROVIDERS: Emergency Provider Emergency Medicine; PCP Physician Assistant
DX: E11.649 Type 2 diabetes mellitus with hypoglycemia without coma (principal); R41.82 Altered mental status, unspecified; E66.01 Morbid (severe) obesity due to excess calories; I11.0 Hypertensive heart disease with heart failure; I25.118 Atherosclerotic heart disease of native coronary artery with other forms of angina pectoris; I50.9 Heart failure, unspecified; E11.43 Type 2 diabetes mellitus with diabetic autonomic (poly)neuropathy; K31.84 Gastroparesis; K21.9 Gastro-esophageal reflux disease without esophagitis; E78.5 Hyperlipidemia, unspecified; E03.9 Hypothyroidism, unspecified; J44.9 Chronic obstructive pulmonary disease, unspecified; G47.33 Obstructive sleep apnea (adult) (pediatric); I27.20 Pulmonary hypertension, unspecified; E11.3599 Type 2 diabetes mellitus with proliferative diabetic retinopathy without macular edema, unspecified eye; Z87.891 Personal history of nicotine dependence
CPT/HCPCS: 80053; 82962; 85025; 99285

== ENCOUNTER 2023-05-24 11:43 | Emergency (ER) | payer MEDICARE, MEDICAID, SELFPAY ==
[2023-05-24] VITALS (9 sets, daily range): BP systolic 119–144; BP diastolic 41–62; PULSE 52–70; RESP 20; TEMP 36.7–36.8; O2SAT 99–100; BMI 44.1
--- NOTE | 2023-05-24 11:54 | PC.NURSE ---
Dr. Pavon at BS for pt eval
--- NOTE | 2023-05-24 11:54 | PC.NURSE ---
Fall risk and allergy bracelet placed on patients left wrist. Family at BS
--- NOTE | 2023-05-24 11:55 | PC.NURSE ---
pt to ct
--- NOTE | 2023-05-24 11:57 | CT_ITS ---
FINAL REPORT CLINICAL HISTORY: fall on thinners FINDINGS: Axial CT images of the cervical spine were obtained without contrast. Sagittal and coronal reformatted images were also obtained. This study was performed with techniques to keep radiation doses as low as reasonably achievable (ALARA). Individualized dose reduction techniques using automated exposure control or adjustment of mA and/or kV according to the patient's size were employed. There is no evidence of fracture or dislocation. The bony alignment is normal. There are mild and moderate degenerative changes. There is no evidence of canal stenosis. No paraspinous soft tissue abnormality is seen. Limited images of the upper thorax are unremarkable. IMPRESSION: No fracture or acute bony abnormality identified. Reviewed, Interpreted and Dictated by Armando Price III, MD Transcribed by Latoya Quiroga Authenticated and [facility]
--- NOTE | 2023-05-24 11:57 | XR_ITS ---
FINAL REPORT CLINICAL HISTORY: fall FINDINGS: Left hip Four views were obtained. Exam is suboptimal secondary to patient's body habitus. No fracture is identified. If there is still significant clinical concern for fracture, CT is recommended. IMPRESSION: No acute process. Reviewed, Interpreted and Dictated by Armando Price III, MD Transcribed by Latoya Quiroga Authenticated and [facility]
--- NOTE | 2023-05-24 11:57 | XR_ITS ---
FINAL REPORT CLINICAL HISTORY: fall FINDINGS: Left knee Three views were obtained. There is no acute fracture or dislocation. There are mild and moderate degenerative changes. Small joint effusion is identified. There is mild vascular calcification. IMPRESSION: No acute process. Reviewed, Interpreted and Dictated by Armando Price III, MD Transcribed by Latoya Quiroga Authenticated and [facility]
--- NOTE | 2023-05-24 11:57 | XR_ITS ---
FINAL REPORT CLINICAL HISTORY: fall FINDINGS: Left femur Two views were obtained. There is no acute fracture or dislocation. There are mild degenerative changes of the knee. No soft tissue abnormality is identified. IMPRESSION: No acute process. Reviewed, Interpreted and Dictated by Armando Price III, MD Transcribed by Latoya Quiroga Authenticated and [facility]
--- NOTE | 2023-05-24 11:57 | CT_ITS ---
FINAL REPORT CLINICAL HISTORY: fall on thinners COMPARISON: 02/29/2016 FINDINGS: Axial images of the head were obtained without contrast. Coronal reformatted images were also obtained. This study was performed with techniques to keep radiation doses as low as reasonably achievable (ALARA). Individualized dose reduction techniques using automated exposure control or adjustment of mA and/or kV according to the patient''s size were employed. There is generalized age-appropriate atrophy. Periventricular low-attenuation areas are seen consistent with moderate chronic ischemic changes. There is no evidence of intracranial hemorrhage or mass. There is no evidence of acute infarct. There is no evidence of shift of the midline structures. No skull abnormality is seen on the bone window images. IMPRESSION: Atrophy and moderate periventricular chronic ischemic changes. No acute intracranial abnormality identified. Reviewed, Interpreted and Dictated by Armando Price III, MD Transcribed by Latoya Quiroga Authenticated and [facility]
--- NOTE | 2023-05-24 11:57 | XR_ITS ---
FINAL REPORT CLINICAL HISTORY: fall FINDINGS: Left elbow Two views were obtained. There is no acute fracture or dislocation. The joint spaces appear normal. No soft tissue abnormality is identified. IMPRESSION: No acute process. Reviewed, Interpreted and Dictated by Armando Price III, MD Transcribed by Latoya Quiroga Authenticated and [facility]
--- NOTE | 2023-05-24 12:10 | PC.NURSE ---
vandana you for pt to void with Ziyad duval
--- NOTE | 2023-05-24 12:14 | HMH.EDGENADL ---
Discharge Plan Disposition Patient Disposition: Home, Self-Care Condition: Good Prescriptions Prescriptions: New nystatin 100,000 unit/gram ointment 1 applic topical BID 10 Days Qty: 30 0RF Rx Instructions: Apply to rash on bottom Preparation H 0.25-14-74.9 % ointment 1 applic MS BID PRN (Reason: hemorrhoids) Qty: 28 0RF Rx Instructions: Apply to hemorrhoids twice daily as needed after cleaning the area well No Action ascorbate calcium (vitamin C) 500 mg tablet 500 mg PO DAILY bisoprolol fumarate 5 mg tablet 5 mg PO DAILY zinc acetate 50 mg (zinc) capsule 50 mg PO DAILY fluticasone furoate-vilanterol [Breo Ellipta] 100-25 mcg/dose blister with device 1 inh inhalation DAILY Qty: 90 2RF ondansetron 8 mg tablet,disintegrating 8 mg PO Q8H PRN (Reason: nausea and vomiting) Qty: 30 0RF gabapentin 800 mg tablet 800 mg PO QID 30 Days Qty: 120 1RF hydrocodone-acetaminophen 5-325 mg tablet 1 tab PO QID PRN (Reason: pain) Qty: 120 0RF Levemir FlexTouch U100 Insulin 100 unit/mL (3 mL) insulin pen See Rx Instructions .ROUTE .COMPLEX Qty: 195 5RF Dose Instruction: INJECT 96 UNITS UNDER THE SKIN 2 TIMES EACH DAY Rx Instructions: INJECT 96 UNITS UNDER THE SKIN 2 TIMES EACH DAY metoclopramide HCl 5 mg tablet See Rx Instructions .ROUTE .COMPLEX Qty: 180 5RF Dose Instruction: TAKE 1 TABLET 2 TIMES EACH DAY FOR STOMACH Rx Instructions: TAKE 1 TABLET 2 TIMES EACH DAY FOR STOMACH Xarelto 20 mg tablet 20 mg PO QPM Qty: 90 3RF Rx Instructions: administer with evening meal levothyroxine 50 mcg tablet See Rx Instructions .ROUTE .COMPLEX Qty: 90 2RF Dose Instruction: TAKE 1 TABLET 1 TIME EACH DAY FOR THYROID Rx Instructions: TAKE 1 TABLET 1 TIME EACH DAY FOR THYROID buspirone 5 mg tablet See Rx Instructions .ROUTE .COMPLEX Qty: 90 2RF Dose Instruction: TAKE 1 TABLET 1 TIME EACH DAY FOR ANXIETY Rx Instructions: TAKE 1 TABLET 1 TIME EACH DAY FOR ANXIETY citalopram 40 mg tablet See Rx Instructions .ROUTE .COMPLEX Qty: 90 2RF Dose Instruction: TAKE 1 TABLET 1 TIME EACH DAY FOR DEPRESSION Rx Instructions: TAKE 1 TABLET 1 TIME EACH DAY FOR DEPRESSION rosuvastatin 20 mg tablet See Rx Instructions .ROUTE .COMPLEX Qty: 90 2RF Dose Instruction: TAKE 1 TABLET 1 TIME EACH DAY AT BEDTIME FOR CHOLESTEROL Rx Instructions: TAKE 1 TABLET 1 TIME EACH DAY AT BEDTIME FOR CHOLESTEROL clopidogrel 75 mg tablet See Rx Instructions .ROUTE .COMPLEX Qty: 90 2RF Dose Instruction: TAKE 1 TABLET 1 TIME EACH DAY FOR HEART DISEASE Rx Instructions: TAKE 1 TABLET 1 TIME EACH DAY FOR HEART DISEASE ergocalciferol (vitamin D2) [Vitamin D2] 1,250 mcg (50,000 unit) capsule See Rx Instructions .ROUTE .COMPLEX Qty: 10 2RF Dose Instruction: TAKE 1 CAPSULE 1 TIME EACH WEEK Rx Instructions: TAKE 1 CAPSULE 1 TIME EACH WEEK (DME) pen needle, diabetic [Ultra-Thin II Ins Pen [place]] 29 gauge x 1/2 needle See Rx Instructions .Route Qty: 100 0RF Rx Instructions: As directed furosemide [Lasix] 40 mg tablet 40 mg PO BID Qty: 60 3RF (DME) pen needle, diabetic [BD Ultra-Fine Short Pen Needle] 31 gauge x 5/16 needle See Rx Instructions .Route Qty: 1200 0RF Rx Instructions: Use to inject insulin 5 times a day Trulicity 0.75 mg/0.5 mL pen injector See Rx Instructions .ROUTE .COMPLEX Qty: 2 2RF Dose Instruction: INJECT THE CONTENTS OF 1 SYRINGE UNDER THE SKIN 1 TIME EACH WEEK Rx Instructions: INJECT THE CONTENTS OF 1 SYRINGE UNDER THE SKIN 1 TIME EACH WEEK meclizine 25 mg tablet See Rx Instructions .ROUTE .COMPLEX Qty: 60 2RF Dose Instruction: TAKE 1 TABLET 2 TIMES EACH DAY FOR NAUSEA AND VOMITING Rx Instructions: TAKE 1 TABLET 2 TIMES EACH DAY FOR NAUSEA AND VOMITING omeprazole 20 mg capsule,chance
[2023-05-24 12:33] LABS: Basophils % 0.3 % (0.1-2.0); Eosinophils # 0.1 K/mm3 (0.0-0.4); Eosinophils % 1.7 % (0.1-12.0); Hemoglobin 8.7 g/dL (12.2-16.2); Lymphocytes # 1.4 K/mm3 (0.7-4.5); Lymphocytes % 16.9 % (10-50); Mean Corpuscular HGB Conc 32.1 g/dL (31.8-35.4); Mean Corpuscular Hemoglobin 22.6 pg (27.0-31.2); Mean Corpuscular Volume 70.5 fl (81-99); Mean Platelet Volume 7.5 fl (7.4-10.4); Monocytes # 0.5 K/mm3 (0.1-1.0); Monocytes % 5.7 % (1.7-9.3); Neutrophils % 75.5 % (37.0-80.0); Platelet Count 244 K/mm3 (142-424); Red Blood Count 3.82 M/mm3 (4.20-5.40); Red Cell Distribution Width 18.4 % (11.5-17.5)
--- NOTE | 2023-05-24 12:35 | PC.NURSE ---
pt back to room
[2023-05-24 12:46] LABS: Alanine Aminotransferase 21 U/L (12-78); Albumin Level 3.9 g/dl (3.5-5.0); Anion Gap 13.3 mEq/L (5-15); Aspartate Amino Transferase 25 U/L (14-36); Blood Urea Nitrogen 43 mg/dl (7-17); Carbon Dioxide 29 mmol/L (22.0-30.0); Chloride 105 mmol/L (98-107); Creatinine Clearance Estimated 44 mL/min (50-200); Estimated Glomerular Filt Rate 54 ml/min (>60); GFR (African American) 66 ML/MIN (>60); Globulin 3.6 g/dL (1.3-3.2); Glucose 197 mg/dl (74-100); Potassium 4.3 mmoL/L (3.5-5.1); Sodium 143 mmol/L (136-145); Total Protein,Serum 7.5 g/dl (6.3-8.2)
[2023-05-24 12:47] LABS: Albumin/Globulin Ratio 1.1 (1.1-1.8); Alkaline Phosphatase 94 U/L (38-126)
[2023-05-24 12:53] LABS: Bilirubin,Total 0.1 mg/dl (0.2-1.3)
[2023-05-24 12:54] LABS: Activated Partial Thrombo Time 30.4 seconds (22.8-30.6); INR 1.15 (0.9-1.1); Prothrombin Time 12.3 seconds (10.1-12.5)
== END 2023-05-24 15:32 | disposition home or self-care (01) ==
PROVIDERS: Emergency Provider Emergency Medicine; PCP Physician Assistant
DX: M25.552 Pain in left hip (principal); M25.562 Pain in left knee; M25.522 Pain in left elbow; E11.9 Type 2 diabetes mellitus without complications; I25.10 Atherosclerotic heart disease of native coronary artery without angina pectoris; I11.0 Hypertensive heart disease with heart failure; I50.9 Heart failure, unspecified; K21.9 Gastro-esophageal reflux disease without esophagitis; E78.5 Hyperlipidemia, unspecified; E03.9 Hypothyroidism, unspecified; I27.20 Pulmonary hypertension, unspecified; Z79.4 Long term (current) use of insulin; Z87.891 Personal history of nicotine dependence; W18.30XA Fall on same level, unspecified, initial encounter
CPT/HCPCS: 70450; 72125; 73070; 73502; 73552; 73562; 80053; 85025; 85610; 85730; 99285

== ENCOUNTER 2023-07-04 14:28 | Observation (INO) | payer MEDICARE, MEDICAID, SELFPAY ==
[2023-07-04] VITALS (16 sets, daily range): BP systolic 111–145; BP diastolic 45–78; PULSE 60–90; RESP 20–24; TEMP 36.6–37.7; O2SAT 92–96; BMI 45.7; BMI 44.2
--- NOTE | 2023-07-04 14:41 | PC.NURSE ---
ems gave duoneb and 125 mg solumedrol
--- NOTE | 2023-07-04 15:31 | XR_ITS ---
FINAL REPORT CLINICAL HISTORY: soa COMPARISON: 12/17/2022 FINDINGS: There is mild cardiomegaly. There are multiple sternotomy wires. The mediastinum is within normal limits. There is new rounded opacity in the right lung base probably due to a small focus of pneumonia. There is stable scarring in the left lung base. There is no pleural effusion. There is no pneumothorax. The bony thorax is intact. IMPRESSION: Right basilar pneumonia. Reviewed, Interpreted and Dictated by Bertram Travis MD Transcribed by Rah Moeller Authenticated and [facility]
--- NOTE | 2023-07-04 15:34 | ECG_ITS ---
APPROVED REPORT Exam: Resting ECG HR:63 bpm ECG Measurements Heart Rate 63 AXES NM 206 P 28 QRSd 151 QRS 5 QT 458 T 3 QTc 465 Conclusion SINUS RHYTHM WITH FREQUENT SUPRAVENTRICULAR PREMATURE COMPLEXES RIGHT BUNDLE BRANCH BLOCK [120+ ms QRS DURATION, UPRIGHT V1, 40+ ms S IN I/aVL/V4/V5/V6] ABNORMAL ECG UNCONFIRMED REPORT Electronically signed by : Andrade Pack MD 07/04/2023 16:49:55
[2023-07-04 15:36] LABS: Coronavirus 19, PCR Not Detected (NotDetected); Influenza A, PCR Not Detected (NotDetected); Influenza B, PCR Not Detected (NotDetected)
--- NOTE | 2023-07-04 15:37 | HMH.EDGENADL ---
Discharge Plan Disposition Patient Disposition: Admitted Chief Complaint: Shortness of Breath/Dyspnea Prescriptions Prescriptions: No Action ascorbate calcium (vitamin C) 500 mg tablet 500 mg PO DAILY bisoprolol fumarate 5 mg tablet 5 mg PO DAILY zinc acetate 50 mg (zinc) capsule 50 mg PO DAILY ondansetron 8 mg tablet,disintegrating 8 mg PO Q8H PRN (Reason: nausea and vomiting) Qty: 30 0RF gabapentin 800 mg tablet 800 mg PO QID 30 Days Qty: 120 1RF hydrocodone-acetaminophen 5-325 mg tablet 1 tab PO QID PRN (Reason: pain) Qty: 120 0RF Levemir FlexTouch U100 Insulin 100 unit/mL (3 mL) insulin pen See Rx Instructions .ROUTE .COMPLEX Qty: 195 5RF Dose Instruction: INJECT 96 UNITS UNDER THE SKIN 2 TIMES EACH DAY Rx Instructions: INJECT 96 UNITS UNDER THE SKIN 2 TIMES EACH DAY metoclopramide HCl 5 mg tablet See Rx Instructions .ROUTE .COMPLEX Qty: 180 5RF Dose Instruction: TAKE 1 TABLET 2 TIMES EACH DAY FOR STOMACH Rx Instructions: TAKE 1 TABLET 2 TIMES EACH DAY FOR STOMACH Xarelto 20 mg tablet 20 mg PO QPM Qty: 90 3RF Rx Instructions: administer with evening meal ergocalciferol (vitamin D2) [Vitamin D2] 1,250 mcg (50,000 unit) capsule See Rx Instructions .ROUTE .COMPLEX Qty: 10 2RF Dose Instruction: TAKE 1 CAPSULE 1 TIME EACH WEEK Rx Instructions: TAKE 1 CAPSULE 1 TIME EACH WEEK (DME) pen needle, diabetic [Ultra-Thin II Ins [place]] 29 gauge x 1/2 needle See Rx Instructions .Route Qty: 100 0RF Rx Instructions: As directed (DME) pen needle, diabetic [BD Ultra-Fine Short Pen Needle] 31 gauge x 5/16 needle See Rx Instructions .Route Qty: 1200 0RF Rx Instructions: Use to inject insulin 5 times a day meclizine 25 mg tablet See Rx Instructions .ROUTE .COMPLEX Qty: 60 2RF Dose Instruction: TAKE 1 TABLET 2 TIMES EACH DAY FOR NAUSEA AND VOMITING Rx Instructions: TAKE 1 TABLET 2 TIMES EACH DAY FOR NAUSEA AND VOMITING omeprazole 20 mg capsule,delayed release(DR/EC) See Rx Instructions .ROUTE .COMPLEX Qty: 90 3RF Dose Instruction: TAKE 1 CAPSULE 1 TIME EACH DAY FOR REFLUX Rx Instructions: TAKE 1 CAPSULE 1 TIME EACH DAY FOR REFLUX losartan 50 mg tablet 50 mg PO DAILY Qty: 90 1RF furosemide 40 mg tablet See Rx Instructions .ROUTE .COMPLEX Qty: 180 4RF Dose Instruction: TAKE 1 TABLET 2 TIMES EACH DAY Rx Instructions: TAKE 1 TABLET 2 TIMES EACH DAY insulin asp prt-insulin aspart [Novolog Mix 70-30FlexPen U-100] 100 unit/mL (70-30) insulin pen See Rx Instructions .ROUTE .COMPLEX Qty: 15 2RF Dose Instruction: INJECT 100 UNITS UNDER THE SKIN 3 TIMES EACH DAY WITH MEALS FOR DIABETES Rx Instructions: INJECT 100 UNITS UNDER THE SKIN 3 TIMES EACH DAY WITH MEALS FOR DIABETES baclofen 10 mg tablet See Rx Instructions .ROUTE .COMPLEX Qty: 60 2RF Dose Instruction: TAKE 1 TABLET 2 TIMES EACH DAY NEEDED FOR MUSCLE PAIN Rx Instructions: TAKE 1 TABLET 2 TIMES EACH DAY NEEDED FOR MUSCLE PAIN fluticasone furoate-vilanterol [Breo Ellipta] 100-25 mcg/dose blister with device See Rx Instructions .ROUTE .COMPLEX Qty: 90 3RF Dose Instruction: INHALE 1 DOSE 1 TIME EACH DAY Rx Instructions: INHALE 1 DOSE 1 TIME EACH DAY citalopram 40 mg tablet See Rx Instructions .ROUTE .COMPLEX Qty: 90 2RF Dose Instruction: TAKE 1 TABLET 1 TIME EACH DAY FOR DEPRESSION Rx Instructions: TAKE 1 TABLET 1 TIME EACH DAY FOR DEPRESSION buspirone 5 mg tablet See Rx Instructions .ROUTE .COMPLEX Qty: 90 2RF Dose Instruction: TAKE 1 TABLET 1 TIME EACH DAY FOR ANXIETY Rx Instructions: TAKE 1 TABLET 1 TIME EACH DAY FOR ANXIETY rosuvastatin 20 mg tablet See Rx Instructions .ROUTE .COMPLEX Qty: 90 2RF Dose Instruction: TAKE 1 TABLET 1 TIME EACH DAY AT BEDTIME FOR CHOLESTEROL Rx I
[2023-07-04 15:40] LABS: Basophils % 0.2 % (0.1-2.0); Eosinophils # 0.1 K/mm3 (0.0-0.4); Eosinophils % 0.4 % (0.1-12.0); Hematocrit 27.5 % (37.0-47.0); Lymphocytes # 1.2 K/mm3 (0.7-4.5); Mean Corpuscular HGB Conc 32.7 g/dL (31.8-35.4); Mean Corpuscular Hemoglobin 22.4 pg (27.0-31.2); Mean Corpuscular Volume 68.5 fl (81-99); Mean Platelet Volume 7.9 fl (7.4-10.4); Monocytes # 0.7 K/mm3 (0.1-1.0); Monocytes % 4.9 % (1.7-9.3); Neutrophils # 11.7 K/mm3 (1.8-7.8); Neutrophils % 85.5 % (37.0-80.0); Platelet Count 259 K/mm3 (142-424); Red Blood Count 4.01 M/mm3 (4.20-5.40); Red Cell Distribution Width 18.6 % (11.5-17.5); White Blood Count 13.7 K/mm3 (4.8-10.8)
[2023-07-04 15:42] LABS: MANUAL DIFFERENTIAL MANUAL DIFFERENTIAL (MANUAL DIFF)
[2023-07-04 15:44] LABS: VBG Base Excess 0.5 mmol/L (-2.4-2.3); VBG Oxygen Saturation 99.7 % (50-70); VBG PCO2 47.4 mmol/L (35-51); VBG PH 7.36 mmol/L (7.31-7.41); VBG PO2 274.5 mmol/L (28-40); VBG Total CO2 27.5 mmol/L (23-27)
[2023-07-04 15:45] LABS: Chloride 101 mmol/L (98-107)
[2023-07-04 15:46] LABS: Potassium 4.4 mmoL/L (3.5-5.1); Sodium 138 mmol/L (136-145)
[2023-07-04 15:48] LABS: Alanine Aminotransferase 20 U/L (12-78); Alkaline Phosphatase 94 U/L (38-126); Aspartate Amino Transferase 23 U/L (14-36); Bilirubin,Total 0.4 mg/dl (0.2-1.3); Blood Urea Nitrogen 40 mg/dl (7-17); Creatinine Clearance Estimated 32 mL/min (50-200); Estimated Glomerular Filt Rate 37 ml/min (>60); GFR (African American) 44 ML/MIN (>60); Lactic Acid 0.9 mmol/L (0.7-2.1)
[2023-07-04 15:49] LABS: Albumin/Globulin Ratio 1.1 (1.1-1.8); Anion Gap 10.4 mEq/L (5-15); Calcium 8.5 mg/dl (8.4-10.2); Carbon Dioxide 31 mmol/L (22.0-30.0); Globulin 3.5 g/dL (1.3-3.2); Glucose 169 mg/dl (74-100); Total Protein,Serum 7.5 g/dl (6.3-8.2)
[2023-07-04 15:57] LABS: NT Pro Brain Natriuretic Pep. 661 pg/mL (0-125)
[2023-07-04 16:02] LABS: Hypochromasia 1+; Lymphocytes % 13 % (10-50); Microcytosis 2+; Monocytes % 1 % (2-9); Neutrophils % 86 % (42-76); Ovalocytes 1+; Platelet Estimate Normal; Total Cells Counted 100
[2023-07-04 16:03] LABS: Troponin I < 0.01 ng/ml (0.00-0.034)
[2023-07-04 16:35] LABS: Microscopic, Urine URINE MICROSCOPIC (MICROSCOPIC)
[2023-07-04 16:41] LABS: Appearance,Urine CLEAR (Clear); Bilirubin,Urine Negative (Negative); Blood, Urine Negative (Negative); Color,Urine YELLOW (Yellow); Glucose,Urine (UA) Negative (Negative); Ketones,Urine Negative (Negative); Leukocyte Esterase,Urine TRACE (Negative); Nitrate,Urine Negative (Negative); PH,Urine 5.5 (5.0-8.5); Protein,Urine Negative (Negative); Urobilinogen,Urine 0.2 EU/dl (0.2)
[2023-07-04 16:55] LABS: RBC,Urine Occasional #/hpf (0-3); Squamous Epithelial Cell,Urine Occasional #/hpf (0-5); WBC,Urine Occasional #/hpf (0-3)
--- NOTE | 2023-07-04 17:14 | PC.NURSE ---
PER ER MD patient only needs one set of blood cultures that were drawn previously when patient arrived before being seen by ER MD and since patient has already received azithromycin second set would be faulty anyway
--- NOTE | 2023-07-04 18:18 | PC.NURSE ---
ASPHALT DAUBER NOTIFIED OF ADMISSION
--- NOTE | 2023-07-04 18:35 | PC.NURSE ---
called report to fabio GRANDE on 2nd floor and answered all questions
--- NOTE | 2023-07-04 19:45 | PC.NURSE ---
patient taken to the floor at this time.
--- NOTE | 2023-07-04 19:47 | PC.NURSE ---
PT ARRIVED TO FLOOR AT THIS TIME
--- NOTE | 2023-07-04 21:14 | EXP.HP ---
History of Present Illness *Admission Date: 07/04/23 *Reason for visit:: Shortness of breath *History of present illness: This is a chronically ill 73-year-old female with a past medical history of CAD status post CABG, atrial fibrillation on anticoagulation, COPD on 2 L nasal cannula, nocturnal BiPAP, and T2DM, hypertension who presents emergency department today with complaints of shortness of breath and cough. Collateral information obtained via emergency department documentation secondary to no family at bedside during my assessment. It is stated that patient has had worsening cough and shortness of breath over the last 2 to 3 days. She was seen in outside clinic today wearing her baseline oxygen and was noted to have oxygen saturations in the 60s causing her to be seen in the emergency department via EMS. Per ER documentation: She was noted to be nodding off throughout her evaluation which is not typical for her. She ambulates baseline with walker and usually is able to engage in conversation with family at baseline. Emergency department workup notable for acute on chronic respiratory failure. She was noted to have diffuse expiratory phase and wheezing on exam. She received DuoNebs, azithromycin and methylprednisone in the emergency department with improvement in symptoms. VBG was obtained without evidence of hypercapnic respiratory failure. She was noted to have elevated BNP of 600 with notable edema to the bilateral upper and lower extremities. She was medicated at that time with Bumex. Chest x-ray obtained and notable for possible right basilar pneumonia. Giving elevated body temp of 99 and SIRS criteria, she was also covered with Rocephin to complete community-acquired pneumonia antibiotic therapy. Given the above-mentioned complaints, she will be admitted to hospital service for further evaluation and management. [facility] Disclaimer: The information contained in this section may have been updated after the patient was seen, as this information can be updated by other users. Medical History Abnormal PFT Anxiety Atypical angina Bilateral swelling of feet CHF (congestive heart failure) Chronic hypoxemic respiratory failure Chronic pain COPD (chronic obstructive pulmonary disease) Coronary artery disease Depression Diabetes mellitus Diabetic gastroparesis associated with type 2 diabetes mellitus Diabetic neuropathy associated with type 2 diabetes mellitus Diarrhea Dyspnea Dyspnea on exertion Dyspnea on exertion GERD (gastroesophageal reflux disease) History of 2019 novel coronavirus disease (COVID-19) Hyperlipidemia Hypertension Hypothyroidism IDDM (insulin dependent diabetes mellitus) Lumbar disc disease Lumbar disc disease with radiculopathy Lumbar radiculopathy Lumbar radiculopathy, chronic Lumbar radiculopathy, chronic ERICKSON (obstructive sleep apnea) Proliferative diabetic retinopathy Pulmonary HTN Pulmonary hypertension Restrictive lung disease Restrictive lung disease Sciatica associated with disorder of lumbar spine Sleep disorder breathing Stopped smoking with greater than 30 pack year history Typical angina Vertigo Vitamin D deficiency Weakness Surgical History History of cataract surgery History of eye surgery History of heart valve replacement History of lumpectomy Family History Other Cancer Diabetes Heart attack Hyperlipidemia Hypertension Stroke Thyroid disorder Social History Smoking Status: Former smoker tobacco type: cigarettes packs per day: 1 second hand exposure: No alcohol intake: never substance use type: denies use current occupational status: unemployed Travel in the last 8 weeks: None household members: children housing: house current occupat
[2023-07-05] VITALS (8 sets, daily range): BP systolic 108–131; BP diastolic 51–89; PULSE 58–71; RESP 17–20; TEMP 36.5–36.7; O2SAT 90–97; BMI 44.6; BMI 44.4
[2023-07-05 02:03] LABS: POC Glucose,Bedside 296 (70-110)
[2023-07-05 03:36] LABS: POC Glucose,Bedside 398 (70-110)
[2023-07-05 06:23] LABS: Chloride 103 mmol/L (98-107)
[2023-07-05 06:24] LABS: Potassium 4.5 mmoL/L (3.5-5.1); Sodium 139 mmol/L (136-145)
[2023-07-05 06:26] LABS: Alanine Aminotransferase 16 U/L (12-78); Alkaline Phosphatase 95 U/L (38-126); Anion Gap 11.5 mEq/L (5-15); Aspartate Amino Transferase 20 U/L (14-36); Bilirubin,Total 0.4 mg/dl (0.2-1.3); Blood Urea Nitrogen 44 mg/dl (7-17); Carbon Dioxide 29 mmol/L (22.0-30.0); Creatinine Clearance Estimated 33 mL/min (50-200); Estimated Glomerular Filt Rate 40 ml/min (>60); GFR (African American) 48 ML/MIN (>60)
[2023-07-05 06:27] LABS: Albumin Level 3.7 g/dl (3.5-5.0); Albumin/Globulin Ratio 1.1 (1.1-1.8); Calcium 8.8 mg/dl (8.4-10.2); Globulin 3.4 g/dL (1.3-3.2); Glucose 367 mg/dl (74-100); Magnesium 2.4 mg/dl (1.6-2.3); Total Protein,Serum 7.1 g/dl (6.3-8.2)
[2023-07-05 06:49] LABS: POC Glucose,Bedside 380 (70-110)
[2023-07-05 07:41] LABS: Eosinophils % 0.1 % (0.1-12.0); Hematocrit 26.4 % (37.0-47.0); Hemoglobin 8.2 g/dL (12.2-16.2); Lymphocytes # 0.6 K/mm3 (0.7-4.5); Mean Corpuscular Hemoglobin 21.5 pg (27.0-31.2); Mean Corpuscular Volume 69.4 fl (81-99); Mean Platelet Volume 8.4 fl (7.4-10.4); Monocytes # 0.3 K/mm3 (0.1-1.0); Monocytes % 2.6 % (1.7-9.3); Neutrophils # 9.1 K/mm3 (1.8-7.8); Neutrophils % 91.3 % (37.0-80.0); Platelet Count 234 K/mm3 (142-424); Red Cell Distribution Width 18.6 % (11.5-17.5)
[2023-07-05 07:48] LABS: MANUAL DIFFERENTIAL MANUAL DIFFERENTIAL (MANUAL DIFF)
--- NOTE | 2023-07-05 09:44 | HMH.PHAINT1 ---
Pharmacy Intervention Comments: Med reconciliation completed using external fill history and talk with daughter, Vee Armas. Vee states that Ms Armas is no longer taking the lorazepam, nystatin, or preparation H. Ms Armas has been having low blood sugar readings and the insulin is now being dosed differently than as on Rx. Vee states that Ms Armas receives 60 units of levemir twice daily, and she receives Novolog mix 60 units with lunch and dinner if blood sugar is above 200 at those times.
[2023-07-05 10:28] LABS: Lymphocytes % 5 % (10-50); Monocytes % 2 % (2-9); Neutrophils % 93 % (42-76); Total Cells Counted 100
[2023-07-05 10:29] LABS: Hypochromasia 1+; Macrocytosis 1NP
[2023-07-05 10:32] LABS: Platelet Estimate Normal
[2023-07-05 11:33] LABS: POC Glucose,Bedside 408 (70-110)
--- NOTE | 2023-07-05 12:42 | EXP.ACUTE.PN ---
Subjective *Date: 07/05/23 *Time: 16:47 Interval history: Oriented to self only on exam. Asked questions a couple times. Denies any significant chest pain or shortness of breath. States she still feels weak. Tolerating p.o. intake. Afebrile. No nausea or vomiting. Diuresing well, -1 L since admission. Continuing to require 3 L nasal cannula oxygen on rounds. Family at bedside and updated of plan. Medical Exam Vital signs and Labs for Last 24 Hours: Vital Signs Temp Pulse Pulse Resp BP BP Pulse Ox 07/05/23 07:43 98.1 F 68 19 113/53 L 94 L 07/05/23 07:00 07/05/23 06:14 62 07/05/23 06:14 59 L 07/05/23 06:14 94 L 07/05/23 05:00 07/05/23 04:00 97.7 F 68 20 108/51 L 90 L 07/05/23 03:00 07/05/23 01:00 07/04/23 23:00 07/04/23 21:00 07/04/23 22:00 07/04/23 23:33 89 07/04/23 23:32 90 07/04/23 20:00 98 F 89 20 115/56 L 93 L 07/04/23 19:49 98.1 F 78 20 125/78 07/04/23 19:00 86 113/45 L 96 07/04/23 18:30 76 117/51 L 94 L 07/04/23 18:05 88 07/04/23 17:35 88 07/04/23 18:00 76 111/53 L 95 07/04/23 17:30 72 117/58 L 95 07/04/23 17:00 111/55 L 94 L 07/04/23 16:46 119/53 L 94 L 07/04/23 16:00 60 137/59 L 92 L 07/04/23 15:30 62 137/68 92 L 07/04/23 15:00 63 136/55 L 94 L 07/04/23 14:29 99.8 F H 62 24 145/56 H 93 L O2 Del Method O2 Flow Rate 07/05/23 07:43 Nasal Cannula 3 07/05/23 07:00 Nasal Cannula 2 07/05/23 06:14 07/05/23 06:14 07/05/23 06:14 Nasal Cannula 3 07/05/23 05:00 Nasal Cannula 2 07/05/23 04:00 Nasal Cannula 2 07/05/23 03:00 Nasal Cannula 2 07/05/23 01:00 Nasal Cannula 2 07/04/23 23:00 Nasal Cannula 2 07/04/23 21:00 Nasal Cannula 2 07/04/23 22:00 Nasal Cannula 07/04/23 23:33 07/04/23 23:32 07/04/23 20:00 Nasal Cannula 2 07/04/23 19:49 Room Air 07/04/23 19:00 07/04/23 18:30 07/04/23 18:05 07/04/23 17:35 07/04/23 18:00 Nasal Cannula 07/04/23 17:30 Nasal Cannula 07/04/23 17:00 Nasal Cannula 07/04/23 16:46 Nasal Cannula 07/04/23 16:00 Nasal Cannula 07/04/23 15:30 Nasal Cannula 07/04/23 15:00 Nasal Cannula 07/04/23 14:29 Nasal Cannula 2.5 Intake and Output 07/04/23 07/05/23 07/05/23 23:59 07:59 15:59 Intake Total 480 / 720 240 / 720 Output Total 800 / 800 400 / 400 Balance -800 / -800 80 / 320 240 / 320 Intake: Intake, Oral Amount 480 / 720 240 / 720 Output: Output, Urine Amount 800 / 800 400 / 400 Other: Weight 120.565 kg 121.381 kg Patient Weight 07/05/23 23:59 Weight 121.381 kg Laboratory Results - last 24 hr 07/04/23 14:36: WBC 13.7 H, RBC 4.01 L, Hgb 9.0 L, Hct 27.5 L, MCV 68.5 L, MCH 22.4 L, MCHC 32.7, RDW 18.6 H, Plt Count 259, MPV 7.9, Neut % (Auto) 85.5 H, Lymph % (Auto) 9.0 L, [place] % (Auto) 4.9, Eos % (Auto) 0.4, Baso % (Auto) 0.2, Neut # (Auto) 11.7 H, Lymph # (Auto) 1.2, [place] # (Auto) 0.7, Eos # (Auto) 0.1, Baso # (Auto) 0.0, Total Counted 100, Neutrophils % (Manual) 86 H, Lymphocytes % (Manual) 13, Monocytes % (Manual) 1 L, Platelet Estimate Normal, Hypochromasia 1+, Microcytosis 2+, Ovalocytes 1+, Sodium 138, Potassium 4.4, Chloride 101, Carbon Dioxide 31 H, Anion Gap 10.4, BUN 40 H, Creatinine 1.40 H, Estimated Creat Clear 32, Estimated GFR 37 L, Est GFR ( Amer) 44 L, Glucose 169 H, Lactate 0.9, Calcium 8.5, Total Bilirubin 0.4, AST 23, ALT 20, Alkaline Phosphatase 94, Troponin I < 0.01, NT-Pro-B Natriuret Pep 661 H, Total Protein 7.5, Albumin 4.0, Globulin 3.5 H, Albumin/Globulin Ratio 1.1, SARS-CoV-2 (PCR) Not detected, Influenza A Untype (PCR) Not detected, Influenza Type B (PCR) Not detected 07/04/23 15:31: VBG pH 7.36, VBG pCO2 47.4, VBG pO2 274.5 H, VBG HCO3 26.0, VBG Total CO2 27.5 H, VBG O2 Saturation 99.7 H, VBG Base Excess 0.5 07/04/23 16:20: Urine Color Yellow, Urine Appeara
[2023-07-05 13:09] LABS: Procalcitonin 0.193 ng/mL (0.0-2.0)
--- NOTE | 2023-07-05 13:37 | HMH.OTEV ---
OT Inpatient Evaluation Rehab OT IP Evaluation Start: 07/05/23 12:42 Freq: ONCE Status: Active Protocol: Document 07/05/23 13:32 [facility] (Rec: 07/05/23 13:37 [facility] [id number]) Rehab OT IP Assessment Subjective History Pt oriented x 3 on arrival. Pt's daughter in law and son are present and supportive during evaluation. Pt admitted on 07/04/23 due to COPD exacerbation. This is a chronically ill 73-year-old female with a past medical history of CAD status post CABG, atrial fibrillation on anticoagulation, COPD on 2 L nasal cannula, nocturnal BiPAP , and T2DM, hypertension who presents emergency department with complaints of shortness of breath and cough. Prior to being in the hosptial , pt lives with her daugther in law and son. Pt and daugther in law report she normally requires assistance with dressing and showering. She is dependent upon family for completion of all IADLS. Pt does use a rolling walker during functional transfers. Subjective I don't feel good. Objective Patient Orientation Person,Place,Birthday Right Upper Extremity Gross ROM WFL Left Upper Extremity Gross ROM WFL Bed Mobility bed mobility-scooting,bed mobility - supine/sit Assist Level Minimal x 1 (25% assist) Transfer Training Sit/Stand Transfer Assist Level Minimal x 2 (25% assist) Chair Transfer Ability Minimal x 2 (25% assist) Chair Transfer Technique Sit to/from Ambulatory Chair Transfer Assistive Devices Rolling Walker Rehab OT IP prob,goals,plan Problems Date of Evaluation: 07/05/23 OT IP Problems Bed Mobility,Transfers,Balance ,Self care,Safety Rehab Potential Rehab Potential Good Equipment Needs Assistive Devices Rolling / Wheeled Walker Plan OT intervention Plan Bed Mobility,Transfers,Balance ,Self care,Safety,Therapeutic Exercise OT Plan Frequency BID
--- NOTE | 2023-07-05 14:00 | HMH.PTEV ---
Physical Therapy Evaluation Rehab PT IP Evaluation Start: 07/05/23 12:42 Freq: ONCE Status: Active Protocol: Document 07/05/23 13:35 [facility] (Rec: 07/05/23 13:59 [facility] [id number]) Subjective/History History History Patient is a 73 year old female admitted to [facility] secondary to respiratory failure, pulmonary edema and COPD exacerbation. Patient currently living at home with family members, requiring assistance with ADL's/IADL's. Previously ambulatory with RW for short distances at home. Patient currently on 2L nasal cannula. Subjective Subjective I've just been really weak the past couple of days. New diagnosis of cancer in past 12 No months? Rehab PT IP Eval Objective Appearance Patient Behavior Appropriate,Cooperative Patient Orientation Person,Place,Birthday Difficulty following instructions none Speech Pattern Clear,Appropriate Ambulation Patient Able to Ambulate Yes Ambulation Observation IP General Gait Pattern Observation Wide Based Gait Ambulation Distance (feet) 10 Ambulation Assistive Device Rolling Walker Ambulation Ability Contact Guard/Hand Hold Balance Ability to Arise Able, uses arms to help Sitting Balance Steady, safe Standing Balance Steady, wide stance Dynamic Sitting Balance Ability Normal Dynamic Standing Balance Ability Good Transfers Bed Transfer Ability Minimal x 1 (25% assist) Sit to Stand Bed Transfer Ability Minimal x 1 (25% assist) ROM All Extremities PT ROM Status WFL MMT All Extremities PT MMT WFL Rehab PT IP prob,goals,plan Problems Date of Evaluation: 07/05/23 PT IP Problems Bed Mobility,Transfers,Gait, Balance,Self care,Safety Rehab Potential Rehab Potential Good Plan PT Intervention Plan Bed Mobility,Transfers,Gait, Balance,Self care,Safety, Therapeutic Exercise PT Plan Frequency BID Duration LOS Discharge Goals Bed Transfer Ability Supervision/Stand by Sit to Stand Chair Transfer Ability Supervision/Stand by Ambulation Assistive Device Rolling Walker Ambulation Distance (feet) 20 Discharge Plan PT Discharge Plan PT suggests that thi
[2023-07-05 16:45] LABS: POC Glucose,Bedside 348 (70-110)
--- NOTE | 2023-07-05 17:39 | PC.NURSE ---
pt is not a meds to bed
--- NOTE | 2023-07-05 18:43 | ECG_ITS ---
APPROVED REPORT Exam: Resting ECG HR:69 bpm ECG Measurements Heart Rate 69 AXES OK 169 P -61 QRSd 151 QRS 21 QT 442 T -9 QTc 460 Conclusion SINUS RHYTHM WITH OCCASIONAL SUPRAVENTRICULAR PREMATURE COMPLEXES INTRAVENTRICULAR CONDUCTION DELAY [130+ ms QRS DURATION] POSSIBLE ANTERIOR MYOCARDIAL INFARCTION , OF INDETERMINATE AGE [30 ms Q WAVE IN V3/V4, OR R < 0.2 mV IN V4] ABNORMAL ECG UNCONFIRMED REPORT Electronically signed by : Andrade Pack MD 07/06/2023 14:48:58
--- NOTE | 2023-07-05 19:12 | PC.NURSE ---
Patient c/o chest pain. MD notified, VSS, EKG obtained. Patient received GI cocktail, Troponin ordered
[2023-07-05 20:09] LABS: Troponin I 0.13 ng/ml (0.00-0.034)
[2023-07-05 22:48] LABS: Troponin I 0.12 ng/ml (0.00-0.034)
[2023-07-06 00:21] VITALS: PULSE 69
[2023-07-06 00:23] VITALS: O2SAT 93
[2023-07-06 02:39] LABS: POC Glucose,Bedside 296 (70-110)
[2023-07-06 04:00] VITALS: BP 143/63; PULSE 63; RESP 17; TEMP 37.1; O2SAT 93; BMI 45.2
[2023-07-06 06:10] LABS: POC Glucose,Bedside 118 (70-110)
[2023-07-06 06:27] LABS: Chloride 103 mmol/L (98-107); Potassium 4.1 mmoL/L (3.5-5.1); Sodium 141 mmol/L (136-145)
[2023-07-06 06:29] LABS: Blood Urea Nitrogen 48 mg/dl (7-17); Creatinine Clearance Estimated 39 mL/min (50-200); Estimated Glomerular Filt Rate 49 ml/min (>60); GFR (African American) 59 ML/MIN (>60)
[2023-07-06 06:30] LABS: Alanine Aminotransferase 23 U/L (12-78); Albumin/Globulin Ratio 1.1 (1.1-1.8); Alkaline Phosphatase 92 U/L (38-126); Anion Gap 10.1 mEq/L (5-15); Aspartate Amino Transferase 30 U/L (14-36); Bilirubin,Total 0.3 mg/dl (0.2-1.3); Calcium 9.3 mg/dl (8.4-10.2); Carbon Dioxide 32 mmol/L (22.0-30.0); Globulin 3.6 g/dL (1.3-3.2); Glucose 120 mg/dl (74-100); Magnesium 2.6 mg/dl (1.6-2.3); Total Protein,Serum 7.6 g/dl (6.3-8.2)
[2023-07-06 06:33] LABS: Basophils % 0.1 % (0.1-2.0); Eosinophils % 0.1 % (0.1-12.0); Hemoglobin 8.7 g/dL (12.2-16.2); Lymphocytes # 1.5 K/mm3 (0.7-4.5); Lymphocytes % 10.5 % (10-50); Mean Corpuscular HGB Conc 31.3 g/dL (31.8-35.4); Mean Corpuscular Hemoglobin 21.6 pg (27.0-31.2); Mean Platelet Volume 8.7 fl (7.4-10.4); Monocytes # 0.7 K/mm3 (0.1-1.0); Monocytes % 4.6 % (1.7-9.3); Neutrophils # 12.2 K/mm3 (1.8-7.8); Neutrophils % 84.7 % (37.0-80.0); Platelet Count 277 K/mm3 (142-424); Red Blood Count 4.02 M/mm3 (4.20-5.40); Red Cell Distribution Width 18.9 % (11.5-17.5); White Blood Count 14.5 K/mm3 (4.8-10.8)
[2023-07-06 06:40] VITALS: PULSE 56; PULSE 63; O2SAT 95
[2023-07-06 06:48] LABS: Hematocrit 27.7 % (37.0-47.0)
[2023-07-06 07:13] LABS: Hemoglobin A1C 5.6 % (4.0-6.0)
[2023-07-06 07:32] VITALS: BP 130/62; PULSE 84; RESP 22; TEMP 36.6; O2SAT 92
--- NOTE | 2023-07-06 08:18 | CA_ITS ---
APPROVED REPORT EXAM: Comprehensive 2D, Doppler, and color-flow Echocardiogram [employer] Supervisor: Rossana Agustin RT(R) Ht: 5 ft 4 in Wt: 271lbs BSA: 2.23 BP: 115/56 mmHg Indications: nstemi, COPD, ex smoker, HTN, DM, SOB, hyperlipidemia, CHF, CAD, CABG, AFIB, PHTN, ERICKSON, M-Mode Dimensions RVDd 2.96 cm (0.9-2.6) LA Diam 3.39 cm (1.9-4.0) LVDd 3.99 cm (3.5-5.7) LVDs 3.00 cm (3.5-5.7) IVSd 1.22 cm (0.6-1.1) PWd 0.84 cm (0.6-1.1) EF (Teich) 49.70% FS 24.80% EDV (Teich) 69.60 mL ESV (Teich) 35.00 mL LV Diastology E Decel Time 233 (160-240 msec) E/A Ratio 1.0 Aortic Valve JOSH Index 0.52 cm2/m2 AoV Peak Navdeep. 351.0 (50-130 cm/s) AO Peak GR. 49.20 mmHg AO Mean GR. 24.20 (<5 mmHg) AO VTI 79.8 (18-25 cm) JOSH (VTI) 1.18 (2.5-4.5 cm2) Mitral Valve MV E Max Navdeep. 139.0 (40-130 cm/s) MV A Velocity 145.0 (40-130 cm/s) E/A Ratio 0.95 MV PHT 68.0 ms Left Ventricle The left ventricle is normal size. The left ventricular systolic function is normal. The left ventricular ejection fraction is within the normal range. There is increased LV wall thickness. There is normal LV segmental wall motion. Grade 2 diastolic dysfunction is present. LVEF is 55%. Right Ventricle The right ventricle is not very well visualized, but is grossly normal in size and function. Atria Left atrium is mildly dilated. Right atrium is mildly dilated. There is no Doppler evidence of interatrial shunt. Aortic Valve The aortic valve is moderately thickened. Moderate aortic stenosis. Peak velocity 3.5 m/s. Mean AV gradient 24 mmHg. Max AV gradient 50 mmHg. JOSH by continuity equation is 1.2 cm2 (LVOT measured at 2.1 cm). Trace aortic regurgitation. Mitral Valve Moderate mitral annular calcification. The mitral valve leaflets are mildly thickened. Mild mitral stenosis. Mean MV gradient 6 mmHg (HR 72 bpm). Trace mitral regurgitation. Tricuspid Valve The tricuspid valve leaflets are thin and pliable. Mild tricuspid regurgitation. RVSP is normal. Pulmonic Valve The pulmonary valve is normal in structure. Mild pulmonic regurgitation. Great Vessels The aortic root is normal in size. The ascending aorta is normal in size. IVC is normal in size and collapses >50% with inspiration. Pericardium There is no pericardial effusion. Other Information Study Quality: Fair Conclusion Normal biventricular systolic function. Grade 2 diastolic dysfunction. Mild biatrial dilation. Moderate aortic stenosis () -peak velocity 3.5 m/s. Mean AV gradient 24 mmHg. Max AV gradient 50 mmHg. JOSH by continuity equation is 1.2 cm2. Mild mitral stenosis (MS). Mild TR. Mild RI. Compared to prior study from 2021, there is progression of the severity of MS and . Serial evaluation every 6 months is recommended. Electronically signed by : Elza Montejo MD 07/14/2023 18:44:59
[2023-07-06 08:43] LABS: POC Glucose,Bedside 158 (70-110)
--- NOTE | 2023-07-06 08:48 | EXP.CARD.CON ---
History of Present Illness History of Present Illness Consult date: 07/06/23 Requesting physician: Ronnie Sethi Consult reason: chest pain and congestive heart failure Chief complaint: SOA, chest pain Additional Medical History:: 1. CAD A. CABG, 2 vessel, 1996, DARLING to LAD and SVG to RCA B. R/[facility], 2020, DARLING and SVG both patent, Left main and nondominant Cx with mild CAD. EF 50%. Severe Pulm HTN and biventricular CHF with RV pressure 60/30 mm Hg, POP 35 mm Hg and PAP 60/40 mm Hg C. Lexiscan Myoview 10/21/2022, no ischemia with normal EF 2. Morbid obesity 3. CHF, biventricular by cardiac catheterization 2020 4. Pulmonary hypertension 5. Diabetes mellitus A. Hemoglobin A1c is 5.6 on 07/06/2023 6. Hypertension A. Echocardiogram, 05/06/2022, biatrial enlargement, normal LV size, mild concentric LVH, EF 55% with no regional WMA. Grade 2 diastolic dysfunction. Thickened and calcified aortic valve with valve area of 1.6 cm? representing mild aortic stenosis. Mild MR and TR noted. 7. Hyperlipidemia A. LDL 50 in 2019 8. CKD, stage II A. Creatinine 1.1, GFR 49 on 07/06/2023 9. Anemia A. Chronic since January 2022 10. Paroxysmal atrial fibrillation A. Xarelto therapy B. History of epistaxis 11. History of partial DVT of the right radial vein, 03/2022. Unknown etiology. A. Treated with 3 weeks of Xarelto 15 mg twice daily then 20 mg daily 12. History of thyroid nodule on ultrasound 04/2022 A. Biopsy 05/27/2022, nondiagnostic with notation of mostly blood with less than 6 follicular groups present. History of present illness: This is a chronically ill 73-year-old female with a past medical history of CAD status post CABG, atrial fibrillation on anticoagulation, COPD on 2 L nasal cannula, nocturnal BiPAP, and T2DM, hypertension who presents emergency department today with complaints of shortness of breath and cough. Collateral information obtained via emergency department documentation secondary to no family at bedside during my assessment. It is stated that patient has had worsening cough and shortness of breath over the last 2 to 3 days. She was seen in outside clinic today wearing her baseline oxygen and was noted to have oxygen saturations in the 60s causing her to be seen in the emergency department via EMS. Per ER documentation: She was noted to be nodding off throughout her evaluation which is not typical for her. She ambulates baseline with walker and usually is able to engage in conversation with family at baseline. Emergency department workup notable for acute on chronic respiratory failure. She was noted to have diffuse expiratory phase and wheezing on exam. She received DuoNebs, azithromycin and methylprednisone in the emergency department with improvement in symptoms. VBG was obtained without evidence of hypercapnic respiratory failure. She was noted to have elevated BNP of 600 with notable edema to the bilateral upper and lower extremities. She was medicated at that time with Bumex. Chest x-ray obtained and notable for possible right basilar pneumonia. Giving elevated body temp of 99 and SIRS criteria, she was also covered with Rocephin to complete community-acquired pneumonia antibiotic therapy. Given the above-mentioned complaints, she will be admitted to hospital service for further evaluation and management. The above information per Dr. Sethi and Adelaida Tucker, [facility]. Today patient is sitting in bedside chair complaining of fatigue and not being able to sleep. She wants to go home. She does complain of some chest discomfort across the precordium which is reproducible with deep breathing, coughing and palpation. Workup included troponins which are mildly elevated 0.13 and 0.12 respectively with elevated BNP at 661. Chest x-ray shows evidence of pneumonia in the right base. Patient does have a recurrent cough during examination. She knows she is in the hospital and knows her correct date of
--- NOTE | 2023-07-06 11:02 | SW/DCPLANNER ---
Addendum entered by Maria Elena Coles 07/06/23 13:41: Marilou w/ [facility] stated that services will start Tuesday 07/10 for this patient. Original Note: I spoke w/ patient's daughter in law (Vee) regarding plans at discharge. PT/OT evaluated patient and recommended returning home w/ home health services. Vee stated that patient used [facility] in the past and would prefer to use this agency again. Patient information/order will be faxed to [facility] this AM. Patient will discharge home this afternoon.
[2023-07-06 12:26] LABS: POC Glucose,Bedside 136 (70-110)
--- NOTE | 2023-07-06 14:18 | EXP.DC.SUM ---
General Admission date:: 07/04/23 Discharge date: 07/06/23 HPI HPI HPI: This is a chronically ill 73-year-old female with a past medical history of CAD status post CABG, atrial fibrillation on anticoagulation, COPD on 2 L nasal cannula, nocturnal BiPAP, and T2DM, hypertension who presents emergency department today with complaints of shortness of breath and cough. Collateral information obtained via emergency department documentation secondary to no family at bedside during my assessment. It is stated that patient has had worsening cough and shortness of breath over the last 2 to 3 days. She was seen in outside clinic today wearing her baseline oxygen and was noted to have oxygen saturations in the 60s causing her to be seen in the emergency department via EMS. Per ER documentation: She was noted to be nodding off throughout her evaluation which is not typical for her. She ambulates baseline with walker and usually is able to engage in conversation with family at baseline. Emergency department workup notable for acute on chronic respiratory failure. She was noted to have diffuse expiratory phase and wheezing on exam. She received DuoNebs, azithromycin and methylprednisone in the emergency department with improvement in symptoms. VBG was obtained without evidence of hypercapnic respiratory failure. She was noted to have elevated BNP of 600 with notable edema to the bilateral upper and lower extremities. She was medicated at that time with Bumex. Chest x-ray obtained and notable for possible right basilar pneumonia. Giving elevated body temp of 99 and SIRS criteria, she was also covered with Rocephin to complete community-acquired pneumonia antibiotic therapy. Given the above-mentioned complaints, she will be admitted to hospital service for further evaluation and management. Hospital Course Hospital Course Hospital Course: 73-year-old female with multiple comorbidities. Presented with shortness of breath. Concern for pneumonia, CHF exacerbation, COPD exacerbation. Initiated on diuresis and antibiotics for pneumonia. PSI/port score of 124. Clinically improved during admission. On baseline oxygen. Discussed case extensively with family on day of discharge about their comfort taking patient home. She has all the DME that she needs. Stable for discharge home with home health. Problems addressed as follows: Hypoxia Chronic respiratory failure COPD exacerbation Acute on chronic diastolic heart failure Pneumonia Admitted for pneumonia and respiratory failure. Patient responded to diuresis, breathing treatments, antibiotics. Overall improved and has been on baseline oxygen for over 24 hours. Plan to continue antibiotics at discharge with azithromycin to complete 5-day course and cefdinir to complete 7-day course. Recommend continuing nebulizers and inhalers after discharge. Has responded well to diuresis as well from a heart failure standpoint and shown good response. Continue with adjustment to her diuretic regimen to help maintain fluid balance. Cardiology was consulted as patient had detectable troponin, suspected to be NSTEMI secondary to heart strain from her pneumonia. Cardiology recommended outpatient follow-up with further workup for ischemic eval as an outpatient. REDD on CKD History of CKD baseline, creatinine today 1.3, BUN 44. Improved on day of discharge to 1.1 with BUN of 48. Recommend repeat labs in 1 week with PCP. ERICKSON: Continue home nocturnal BiPAP. Recommend oxygen usage overnight given her daytime hypoxia and need for oxygen. Atrial fibrillation Hypertension Continue 20 mg Xarelto daily per home medicine reconciliation. Continue bisoprolol 5 mg daily, rate controlled in the 60s Continue losartan per home regimen T2DM Resume home basal bolus regimen. A1c obtained during admission. Well-controlled at 5.6. Recommend review of outpatient regimen and consider de-escalation of therapy. Given patient's comorbidities
--- NOTE | 2023-07-07 11:28 | CARE MANAGER ---
Contacted patient's family related to hospital discharge. He states that she is currently at her follow up appointment. She has her medication and they have spoken with home health. Deny any questions or concerns. CHRISTIANE Sosa
--- NOTE | 2023-07-11 12:34 | PC.NURSE ---
blood culture results show gram positive cocci, pt admitted to 2nd floor given azithromycin and rocephin, dc with azithromycin and cefdinir per . Called pt who states she is feeling better today and no fevers that she knows of. aware, no further action at this time.
== END 2023-07-06 16:00 | disposition home health service (06) ==
LOC: ER 18:05 → 2ND 18:32
PROVIDERS: Nurse Practitioner Acute Care; Admitting Provider Internal Medicine Adolescent Medicine; Emergency Provider Emergency Medicine; PCP Physician Assistant; Visit Provider Internal Medicine Adolescent Medicine
DX: J44.1 Chronic obstructive pulmonary disease with (acute) exacerbation (principal); I50.33 Acute on chronic diastolic (congestive) heart failure; J18.9 Pneumonia, unspecified organism; R65.10 Systemic inflammatory response syndrome (SIRS) of non-infectious origin without acute organ dysfunction; N17.9 Acute kidney failure, unspecified; R09.02 Hypoxemia; G47.33 Obstructive sleep apnea (adult) (pediatric); I48.20 Chronic atrial fibrillation, unspecified; I21.4 Non-ST elevation (NSTEMI) myocardial infarction; I50.82 Biventricular heart failure; E66.01 Morbid (severe) obesity due to excess calories; Z68.41 Body mass index [BMI] 40.0-44.9, adult; E11.65 Type 2 diabetes mellitus with hyperglycemia; D50.9 Iron deficiency anemia, unspecified; E78.5 Hyperlipidemia, unspecified; I25.10 Atherosclerotic heart disease of native coronary artery without angina pectoris; Z95.1 Presence of aortocoronary bypass graft; I27.20 Pulmonary hypertension, unspecified; I48.0 Paroxysmal atrial fibrillation; G47.34 Idiopathic sleep related nonobstructive alveolar hypoventilation; Z99.81 Dependence on supplemental oxygen; I11.0 Hypertensive heart disease with heart failure; J44.0 Chronic obstructive pulmonary disease with (acute) lower respiratory infection; D63.1 Anemia in chronic kidney disease; E11.22 Type 2 diabetes mellitus with diabetic chronic kidney disease; I12.9 Hypertensive chronic kidney disease with stage 1 through stage 4 chronic kidney disease, or unspecified chronic kidney disease; N18.9 Chronic kidney disease, unspecified; Z86.718 Personal history of other venous thrombosis and embolism; E11.43 Type 2 diabetes mellitus with diabetic autonomic (poly)neuropathy; K31.84 Gastroparesis; E03.9 Hypothyroidism, unspecified; K21.9 Gastro-esophageal reflux disease without esophagitis; J96.20 Acute and chronic respiratory failure, unspecified whether with hypoxia or hypercapnia; Z79.4 Long term (current) use of insulin
CPT/HCPCS: 36415; 71045; 80053; 81001; 82803; 82962; 83036; 83605; 83735; 83880; 84145; 84484; 85007; 85025; 87040; 87070; 87205; 87636; 93005; 93306; 94640; 94761; 97110; 97166; 97530; 99285; G0378; J0456; J0696

== ENCOUNTER 2023-08-03 19:30 | Outpatient (CLI) | payer MEDICARE, MEDICAID, SELFPAY ==
[2023-08-03 19:45] LABS: Anion Gap 15.8 mEq/L (5-15); Blood Urea Nitrogen 35 mg/dl (7-17); Calcium 8.6 mg/dl (8.4-10.2); Carbon Dioxide 26 mmol/L (22.0-30.0); Chloride 102 mmol/L (98-107); Estimated Glomerular Filt Rate 49 ml/min (>60); GFR (African American) 59 ML/MIN (>60); Glucose 115 mg/dl (74-100); Potassium 5.8 mmoL/L (3.5-5.1); Sodium 138 mmol/L (136-145)
[2023-08-03 21:23] LABS: 25-OH Vitamin D, Total 61.3 ng/mL (30-100)
== END 2023-08-03 23:59 ==
LOC: LAB.DROPOF 19:31
PROVIDERS: PCP Physician Assistant; Visit Provider Physician Assistant
DX: E55.9 Vitamin D deficiency, unspecified (principal); R89.9 Unspecified abnormal finding in specimens from other organs, systems and tissues
CPT/HCPCS: 80048; 82306

== ENCOUNTER 2023-08-10 05:29 | Emergency (ER) | payer MEDICARE, MEDICAID, SELFPAY ==
[2023-08-10 05:29] VITALS: BP 152/56; PULSE 53; RESP 20; TEMP 36.4; O2SAT 94; BMI 44.2
--- NOTE | 2023-08-10 05:32 | PC.NURSE ---
in room talking with patient at this time.
--- NOTE | 2023-08-10 05:35 | XR_ITS ---
PROCEDURE INFORMATION: Exam: XR Right Hip Exam date and time: 08/10/2023 5:46 AM Age: 73 years old Clinical indication: Hip pain; Right hip; Additional info: Fall pain TECHNIQUE: Imaging protocol: Radiologic exam of the right hip. Views: 2 or 3 views hip with pelvis when performed. COMPARISON: CT ABDOMEN PELVIS W CON 02/10/2022 7:57 PM FINDINGS: Bones/joints: There is no evidence of acute fracture. There is mild bilateral hip osteoarthritis. Soft tissues: Unremarkable. IMPRESSION: No evidence of acute fracture.
--- NOTE | 2023-08-10 05:38 | XR_ITS ---
PROCEDURE INFORMATION: Exam: XR Right Femur Exam date and time: 08/10/2023 5:46 AM Age: 73 years old Clinical indication: Pain; Thigh; Right; Additional info: Fall, pain TECHNIQUE: Imaging protocol: Radiologic exam of the right femur. Views: 2 views. COMPARISON: CR XR HIP RT 2-3V W/PELVIS 08/10/2023 5:46 AM FINDINGS: Bones/joints: Unremarkable. No acute fracture. Soft tissues: Unremarkable. IMPRESSION: No acute findings.
--- NOTE | 2023-08-10 05:41 | CT_ITS ---
PROCEDURE INFORMATION: Exam: CT Lumbar Spine Without Contrast Exam date and time: 08/10/2023 6:01 AM Age: 73 years old Clinical indication: Low back pain; Additional info: Fall low back, right hip pain TECHNIQUE: Imaging protocol: Computed tomography of the lumbar spine without contrast. Radiation optimization: All CT scans at this facility use at least one of these dose optimization techniques: automated exposure control; mA and/or kV adjustment per patient size (includes targeted exams where dose is matched to clinical indication); or iterative reconstruction. COMPARISON: CT LUMBAR SPINE WO CON 11/30/2019 8:02 PM FINDINGS: Bones/joints: There is osteopenia present. There is slight grade 1 anterolisthesis L4 on L5 again seen. Otherwise there is no evidence of acute fracture. There is [id number] multilevel degenerative disc disease. There is multilevel spinal canal stenosis most notable at L4-L5 where there is severe spinal canal stenosis secondary to diffuse disc bulging and ligamentum flavum/facet hypertrophy. Soft tissues: Unremarkable. IMPRESSION: 1. No evidence of acute fracture. 2. Severe spinal canal stenosis at L4-L5.
--- NOTE | 2023-08-10 05:41 | CT_ITS ---
PROCEDURE INFORMATION: Exam: CT Pelvis Without Contrast; Skeletal Exam date and time: 08/10/2023 6:04 AM Age: 73 years old Clinical indication: Pelvic pain; Additional info: Fall low back, right hip pain TECHNIQUE: Imaging protocol: Computed tomography of the pelvis without contrast. Exam focused on the skeleton. Radiation optimization: All CT scans at this facility use at least one of these dose optimization techniques: automated exposure control; mA and/or kV adjustment per patient size (includes targeted exams where dose is matched to clinical indication); or iterative reconstruction. COMPARISON: CT ABDOMEN PELVIS W CON 02/10/2022 7:57 PM FINDINGS: Reproductive: The patient appears to be status post hysterectomy. Vasculature: There is heavy atherosclerotic disease noted. Bones/joints: There is no evidence of acute fracture. There is mild bilateral hip osteoarthritis. Soft tissues: Unremarkable. IMPRESSION: 1. No evidence of acute fracture. 2. Mild bilateral hip osteoarthritis.
--- NOTE | 2023-08-10 05:51 | PC.NURSE ---
patient gone to CT.
--- NOTE | 2023-08-10 06:09 | ED_ITS ---
Discharge Plan Disposition Patient Disposition: Home, Self-Care Condition: Good Prescriptions Prescriptions: No Action ascorbate calcium (vitamin C) 500 mg tablet 500 mg PO DAILY zinc acetate 50 mg (zinc) capsule 50 mg PO DAILY prednisone 50 mg tablet 50 mg PO DAILY 3 Days Qty: 3 0RF Rx Instructions: take one tablet 13 hours prior to procedure take one tablet 7 hours prior to procedure take one tablet 1 hour prior to procedure. ondansetron 8 mg tablet,disintegrating 8 mg PO Q8H PRN (Reason: nausea and vomiting) Qty: 30 0RF gabapentin 800 mg tablet 800 mg PO TID Qty: 90 2RF meclizine 25 mg tablet 25 mg PO BID PRN (Reason: dizziness) Qty: 60 0RF Rx Instructions: TAKE 1 TABLET 2 TIMES EACH DAY FOR NAUSEA AND VOMITING hydrocodone-acetaminophen 5-325 mg tablet 1 tab PO QID PRN (Reason: pain) Qty: 120 0RF (DME) pen needle, diabetic [Ultra-Thin II Ins Pen [place]] 29 gauge x 1/2 needle See Rx Instructions .Route Qty: 100 0RF Rx Instructions: As directed (DME) pen needle, diabetic [BD Ultra-Fine Short Pen Needle] 31 gauge x 5/16 needle See Rx Instructions .Route Qty: 1200 0RF Rx Instructions: Use to inject insulin 5 times a day losartan 50 mg tablet 50 mg PO DAILY Qty: 90 1RF icosapent ethyl [Vascepa] 1 gram capsule 2 g PO BID Qty: 360 3RF spironolactone [Aldactone] 50 mg tablet 50 mg PO BID Qty: 180 3RF Eliquis 5 mg tablet 5 mg PO BID 30 Days Qty: 60 0RF atorvastatin 40 mg tablet 40 mg PO HS 30 Days Qty: 30 0RF bumetanide 1 mg tablet 1 mg PO 0800,1400 30 Days Qty: 60 0RF insulin asp prt-insulin aspart [Novolog Mix 70-30FlexPen U-100] 100 unit/mL (70-30) insulin pen 60 unit SQ BID Qty: 15 5RF bisoprolol fumarate 5 mg tablet 5 mg PO HS Qty: 30 11RF cholecalciferol (vitamin D3) 1,000 UNIT capsule 1,000 unit PO BID metoclopramide HCl 5 mg tablet 5 mg PO DAILY Rx Instructions: TAKE 1 TABLET 2 TIMES EACH DAY FOR STOMACH levothyroxine 50 mcg tablet 50 mcg PO DAILY Rx Instructions: TAKE 1 TABLET 1 TIME EACH DAY FOR THYROID omeprazole 20 mg capsule,delayed release(DR/EC) 20 mg PO DAILY Rx Instructions: TAKE 1 CAPSULE 1 TIME EACH DAY FOR REFLUX insulin detemir U-100 100 unit/mL (3 mL) insulin pen 60 unit SQ BID Rx Instructions: INJECT 96 UNITS UNDER THE SKIN 2 TIMES EACH DAY buspirone 5 mg tablet 5 mg PO HS Rx Instructions: TAKE 1 TABLET 1 TIME EACH DAY FOR ANXIETY citalopram 40 mg tablet 40 mg PO DAILY Rx Instructions: TAKE 1 TABLET 1 TIME EACH DAY FOR DEPRESSION clopidogrel 75 mg tablet 75 mg PO DAILY Rx Instructions: TAKE 1 TABLET 1 TIME EACH DAY FOR HEART DISEASE baclofen 10 mg tablet 10 mg PO BID PRN (Reason: MUSCLE SPASMS) Rx Instructions: TAKE 1 TABLET 2 TIMES EACH DAY NEEDED FOR MUSCLE PAIN ergocalciferol (vitamin D2) [Vitamin D2] 1,250 mcg (50,000 unit) capsule 50,000 unit PO WEEKLY Rx Instructions: TAKE 1 CAPSULE 1 TIME EACH WEEK ON SUNDAYS fluticasone furoate-vilanterol [Breo Ellipta] 100-25 mcg/dose blister with device 1 inh inhalation DAILY Rx Instructions: INHALE 1 DOSE 1 TIME EACH DAY Trulicity 0.75 mg/0.5 mL pen injector 0.75 mg SQ WEEKLY Rx Instructions: INJECT THE CONTENTS OF 1 SYRINGE UNDER THE SKIN 1 TIME EACH WEEK ON SATURDAYS cranberry 1,000 mg Capsule 1,500 mg PO DAILY Rx Instructions: administer with meals polyethylene glycol 3350 [Laxative PEG 3350] 17 gram/dose powder 17 g PO DAILY Qty: 238 0RF albuterol sulfate 90 mcg/actuation HFA aerosol inhaler 2 inh INHALATION Q6H PRN (Reason: Shortness Of Breath Or Wheezing) Patient Comments: INHALE 2 TIMES 4 TIMES EACH DAY NEEDED FOR SHORTNESS OF BREATH OR WHEEZING Activity Restrictions/Add. Instructions Additional Instructions/Restrictions: Please follow-up with your primary care provider. Please return to the emergency department if you develop any new or worsening symptoms or become concerned for your health. Clinical Impressions Clinical Impression: Low back pain Qualifiers: Chronicity: acute Back pain laterality: midline Sciatica presence: without sciatica Qualified Code(s): M54.50 - Low back pain, unspecified Acute hip pain Qualifiers: Laterality: right Qualified Code(s): M25.551 - Pain in right hip Instructions Patient Instructions: DI for Low Back Pain Discharge ED Provider: Thomas Aquino General Adult HPI General Chief complaint: Back Pain/Injury Stated complaint: fall Time Seen by Provider: 08/10/23 05:35 Mode of Arrival: EMS Source of Information: Patient Limitations: No Limitations Description of Symptoms (Recalled from ER Triage Doc. by RN): pt reports when she was up moving from potty chair back to bed she slipped and fell back against bed, sliding down the edge with her back, daughter reports to ems that she never made it to floor when she slipped History of Present Illness HPI narrative: 73-year-old female presents with low back pain and right hip pain after misstep while using a bedside potty chair. She reports that she got up to use the potty chair, she turned and fell backwards, sliding her low back on side of the bed. According to family, she did not fall all the way to the floor. Patient reports pain is across her low back and into her right hip. She denies any numbness tingling or weakness of the lower extremities. She denies hitting her head, denies loss of conscious, reports no pain anywhere else. Related Data Home Medications Medication Instructions Recorded Confirmed cholecalciferol (vitamin D3) 25 1,000 unit PO BID Diet supplement 08/11/20 08/03/23 mcg (1,000 unit) capsule ascorbate calcium (vitamin C) 500 500 mg PO DAILY SUPPLEMTN 11/30/20 08/03/23 mg tablet albuterol sulfate 90 mcg/actuation 2 inh inhalation Q6H PRN Shortness 08/01/22 08/03/23 aerosol inhaler Of Breath Or Wheezing zinc acetate 50 mg (zinc) capsule 50 mg PO DAILY 10/06/22 08/03/23 insulin detemir U-100 100 unit/mL 60 unit SQ BID 07/04/23 08/03/23 (3 mL) subcutaneous pen levothyroxine 50 mcg tablet 50 mcg PO DAILY 07/04/23 08/03/23 metoclopramide HCl 5 mg tablet 5 mg PO DAILY 07/04/23 08/03/23 omeprazole 20 mg capsule,delayed 20 mg PO DAILY 07/04/23 08/03/23 release baclofen 10 mg tablet 10 mg PO BID PRN MUSCLE SPASMS 07/05/23 08/03/23 buspirone 5 mg tablet 5 mg PO HS 07/05/23 08/03/23 citalopram 40 mg tablet 40 mg PO DAILY 07/05/23 08/03/23 clopidogrel 75 mg tablet 75 mg PO DAILY 07/05/23 08/03/23 cranberry 1,000 mg capsule 1,500 mg PO DAILY 07/05/23 08/03/23 dulaglutide 0.75 mg/0.5 mL 0.75 mg SQ WEEKLY 07/05/23 08/03/23 subcutaneous pen injector (Trulicity) ergocalciferol (vitamin D2) 1,250 50,000 unit PO WEEKLY 07/05/23 08/03/23 mcg (50,000 unit) capsule (Vitamin D2) fluticasone furoate 100 1 inh inhalation DAILY 07/05/23 08/03/23 mcg-vilanterol 25 mcg/dose inhalation powder (Breo Ellipta) Previous Rx's Medication Instructions Recorded pen needle, diabetic 29 gauge x #100 ea 01/17/2307/25 (Ultra-Thin II Insulin Pen [place]) pen needle, diabetic 31 gauge x #1,200 ea 02/06/2312/06 (BD Ultra-Fine Short Pen Needle) losartan 50 mg tablet 50 mg PO DAILY #90 tabs 04/24/23 ondansetron 8 mg disintegrating 8 mg PO Q8H PRN nausea and 05/03/23 tablet vomiting #30 tabs icosapent ethyl 1 gram capsule 2 g PO BID #360 caps 06/29/23 (Vascepa) spironolactone 50 mg tablet 50 mg PO BID Fluid #180 tabs 06/29/23 (Aldactone) polyethylene glycol 3350 17 17 g PO DAILY #238 grams 07/06/23 gram/dose oral powder (Laxative PEG 3350) apixaban 5 mg tablet (Eliquis) 5 mg PO BID 30 days #60 tabs 07/25/23 atorvastatin 40 mg tablet 40 mg PO HS 30 days #30 tabs 07/25/23 bumetanide 1 mg tablet 1 mg PO 0800,1400 30 days #60 tabs 07/25/23 insulin aspar prot-insulin aspart 60 unit (0.6 mL) SQ BID #15 mL 07/26/23 100 unit/mL (70-30) subcutaneous pen (Novolog Mix 70-30FlexPen U-100) gabapentin 800 mg tablet 800 mg PO TID #90 tabs 08/03/23 meclizine 25 mg tablet 25 mg PO BID PRN dizziness #60 tabs 08/03/23 prednisone 50 mg tablet 50 mg PO DAILY 3 days #3 tabs 08/03/23 hydrocodone 5 mg-acetaminophen 325 1 tab PO QID PRN pain #120 tabs 08/04/23 mg tablet bisoprolol fumarate 5 mg tablet 5 mg PO HS #30 tabs 08/07/23 Allergies Allergy/AdvReac Type Severity Reaction Status Date / Time Iodinated Contrast Media Allergy Intermediate Hives Verified 08/03/23 11:46 [Iodinated Contrast Media - IV Dye] celecoxib [From CELEBREX] Allergy Unknown SWELLING Verified 08/03/23 11:46 ibuprofen [IBUPROFEN] Allergy Unknown S-BLISTERING Verified 08/03/23 11:46 WELTS meloxicam [MELOXICAM] Allergy Unknown S-BLISTERING Verified 08/03/23 11:46 WELTS Penicillins [PENICILLINS] Allergy Unknown I-HIVES Verified 08/03/23 11:46 rofecoxib [From VIOXX] Allergy Unknown I-HIVES Verified 08/03/23 11:46 PFSH PFS Disclaimer: The information contained in this section may have been updated after the patient was seen, as this information can be updated by other users. Medical History Abnormal PFT Anxiety Aortic stenosis Atypical angina Bilateral swelling of feet CHF (congestive heart failure) Chronic hypoxemic respiratory failure Active follow-up with pulmonology Chronic pain Contrast media allergy COPD (chronic obstructive pulmonary disease) Active follow-up with pulmonology Coronary artery disease Depression Diabetes mellitus type 2 non insulin dep Diabetic gastroparesis associated with type 2 diabetes mellitus Diabetic neuropathy associated with type 2 diabetes mellitus Diarrhea Dyspnea Dyspnea on exertion Dyspnea on exertion GERD (gastroesophageal reflux disease) History of 2019 novel coronavirus disease (COVID-19) Hyperlipidemia Hypertension Hypothyroidism IDDM (insulin dependent diabetes mellitus) Lumbar disc disease Lumbar disc disease with radiculopathy Lumbar radiculopathy Lumbar radiculopathy, chronic Lumbar radiculopathy, chronic ERICKSON (obstructive sleep apnea) Proliferative diabetic retinopathy Pulmonary HTN Pulmonary hypertension Restrictive lung disease Restrictive lung disease Sciatica associated with disorder of lumbar spine Sleep disorder breathing Stopped smoking with greater than 30 pack year history Typical angina Vertigo Vitamin D deficiency Weakness Surgical History History of cataract surgery History of eye surgery History of heart valve replacement History of lumpectomy Hx of CABG Family History Other Cancer Diabetes Heart attack Hyperlipidemia Hypertension Stroke Thyroid disorder Social History Smoking Status: Former smoker tobacco type: cigarettes packs per day: 1 second hand exposure: No alcohol intake: never substance use type: denies use current occupational status: unemployed Travel in the last 8 weeks: None household members: children housing: house current occupational exposures/hazards: No caffeine: Yes ROS Obtained: Yes All systems reviewed & no additional complaints except as documented Physical Exam General General appearance: alert, in no apparent distress and obese Head Head exam: atraumatic and normocephalic Eye Eye exam: Present normal appearance, PERRL and EOMI ENT ENT exam: Present normal oropharynx and normal external ear exam Neck Neck exam: Present normal inspection and full ROM Chest Chest inspection: Present normal inspection and symmetric chest wall rise; Absent tenderness Respiratory Respiratory exam: Present normal lung sounds bilaterally; Absent respiratory distress Cardiovascular Cardiovascular exam: Present regular rate and normal rhythm Abdominal Exam Abdominal exam: Present soft and distention; Absent tenderness or guarding Extremities Exam Extremities exam: Present normal inspection and other (Tenderness over the right greater trochanter, pelvis stable, otherwise nontender to all extremities with intact neurovascular exam.); Absent edema or joint swelling Back Exam Back exam: Present normal inspection and tenderness (Midline and paraspinal lumbar spinal tenderness) Neurological Exam Neurological exam: Present alert and oriented X3; Absent motor sensory deficit Psychiatric Psychiatric exam: Present normal affect and normal mood Skin Skin exam: Present warm, dry and normal color Lymphatic Lymphatic Findings: no adenopathy Medical Decision Making Medical Records Medical records reviewed: Yes I reviewed the patient's medical records. Sam Inquiry Pt receiving controlled substance: No Sam was queried for this patient: No Vital Signs: 08/10/23 05:29 08/10/23 07:24 08/10/23 07:32 Temperature 97.6 F Temperature Source Oral Pulse Rate 45 L 46 L Pulse Rate [Right] 53 L Respiratory Rate 20 18 20 Blood Pressure 148/48 H 162/54 H Blood Pressure [Right Arm] 152/56 H Blood Pressure Mean 81 82 Blood Pressure Mean [Right Arm] 88 Blood Pressure Source Blood Pressure Source [Right Arm] Automatic Cuff Blood Pressure Position Blood Pressure Position [Right Arm] Sitting 02 Sat by Pulse Oximetry 94 L 100 100 Oxygen Delivery Method Nasal Cannula Nasal Cannula Oxygen Flow Rate (LPM) 2 2 08/10/23 08:01 08/10/23 08:22 Temperature 98.8 F Temperature Source Oral Pulse Rate 521 H 60 Pulse Rate [Right] Respiratory Rate 18 Blood Pressure 149/63 H 149/63 H Blood Pressure [Right Arm] Blood Pressure Mean 76 Blood Pressure Mean [Right Arm] Blood Pressure Source Automatic Cuff Blood Pressure Source [Right Arm] Blood Pressure Position Sitting Blood Pressure Position [Right Arm] 02 Sat by Pulse Oximetry 99 Oxygen Delivery Method Nasal Cannula Nasal Cannula Oxygen Flow Rate (LPM) 2 2 Lab Data Lab results reviewed: Yes I reviewed the patient's lab results. Orders (Tests/Meds): ORDERS Category Date Time Status CT bony pelvis Stat Cat Scan 08/10/23 05:[address] lumbar spine wo con Stat Cat Scan 08/10/23 05:41 Completed Femur XR right 2 views [XR femur RT 2V] Stat Exams 08/10/23 05:38 Completed Hip XR right minimum 2 views [XR hip RT 2-3V w/pelvis] Exams 08/10/23 05:35 Completed Stat Medical Decision Narrative: 73-year-old female, presentation complicated by history of morbid obesity, pulmonary hypertension, heart failure, A-fib, presents with low back pain and right hip pain after falling into the side of the bed while using the potty chair. Low mechanism trauma per family, she did not actually hit the ground. History was obtained via conversation with patient, family, EMS. On arrival, patient is [afebrile, hemodynamically stable, satting appropriately, alert, oriented x4, GCS 15], moving all extremities spontaneously. Full physical exam performed and significant for midline and paraspinal lumbar tenderness, right hip tenderness Differential includes but is not limited to fracture, dislocation, ne urovascular/ligamentous injury. Workup initiated including radiographs of the right femur hip and pelvis, CT of the lumbar spine and CT bony pelvis. On re-evaluation, patient [remains afebrile, HD stable.] Imaging independently interpreted by me and significant for chronic appearing degenerative changes, no acute fracture noted on the radiographs or the CT scans. Patient noted to have spinal stenosis from disc bulging in the L4-L5 region. Patient has no physical exam findings concerning for cauda equina at this time. No indication for MRI imaging. See radiology read for full review of final results. Given patient history, exam and workup, patient's presentation most likely represents mild bruising and tenderness after fall without acute bony injury. This finding was communicated patient. She was ambulatory in ED and discharged in stable condition. Procedures Risk/Benefits of Procedure(s) Were Explained: Yes Critical Care Critical Care Time Critical Care Time: No
--- NOTE | 2023-08-10 06:09 | PC.NURSE ---
patient back in room
[2023-08-10 07:24] VITALS: BP 148/48; PULSE 45; RESP 18; O2SAT 100
[2023-08-10 07:32] VITALS: BP 162/54; PULSE 46; RESP 20; O2SAT 100
[2023-08-10 08:01] VITALS: BP 149/63; PULSE 521; O2SAT 99
[2023-08-10 08:22] VITALS: BP 149/63; PULSE 60; RESP 18; TEMP 37.1; O2SAT 100
== END 2023-08-10 08:29 | disposition home or self-care (01) ==
PROVIDERS: Emergency Provider Emergency Medicine; PCP Physician Assistant
DX: M54.50 Low back pain, unspecified (principal); M25.551 Pain in right hip; I11.0 Hypertensive heart disease with heart failure; I50.9 Heart failure, unspecified; I25.118 Atherosclerotic heart disease of native coronary artery with other forms of angina pectoris; I35.0 Nonrheumatic aortic (valve) stenosis; J96.11 Chronic respiratory failure with hypoxia; J44.9 Chronic obstructive pulmonary disease, unspecified; E11.43 Type 2 diabetes mellitus with diabetic autonomic (poly)neuropathy; K31.84 Gastroparesis; K21.9 Gastro-esophageal reflux disease without esophagitis; E03.9 Hypothyroidism, unspecified; E78.5 Hyperlipidemia, unspecified; M51.16 Intervertebral disc disorders with radiculopathy, lumbar region; G47.33 Obstructive sleep apnea (adult) (pediatric); E11.3599 Type 2 diabetes mellitus with proliferative diabetic retinopathy without macular edema, unspecified eye; I27.20 Pulmonary hypertension, unspecified; Z87.891 Personal history of nicotine dependence
CPT/HCPCS: 72131; 72192; 73502; 73552; 99285

== ENCOUNTER 2023-08-16 08:05 | Day surgery (SDC) | payer MEDICARE, MEDICAID, SELFPAY ==
[2023-08-16] VITALS (13 sets, daily range): BP systolic 118–152; BP diastolic 52–95; PULSE 62–78; RESP 17–18; TEMP 36.9; O2SAT 91–100; BMI 29.1; BMI 47.4
--- NOTE | 2023-08-16 07:13 | IR_ITS ---
APPROVED REPORT Patient Location: Outpatient PROCEDURES Right heart catheterization Left heart catheterization Left ventriculogram Selective coronary angiogram Left internal mammary angiography Selective engagement of the saphenous vein graft to the posterior descending artery INDICATION Pulmonary hypertension, Accelerated angina pectoris Informed consent was obtained prior to the procedure. COMPLICATIONS NONE Estimated Blood Loss: LESS THAN 10 ML TECHNIQUE One percent lidocaine used to anesthetize the right groin. The right femoral artery was accessed via the Seldinger technique and a 5 Russian sheath was placed in the right femoral artery. A JL 4, JR4 catheter were used to perform left heart catheterization, left ventriculogram selective coronary angiography as well as selective engagement of the 2 vein grafts and the left internal mammary artery. 1% lidocaine was used anesthetize right groin and the right femoral vein was accessed via the center technique. A 7 Russian sheath is placed in the right femoral vein and a Custer-Lucina catheter was floated under fluoroscopic guidance into the pulmonary artery where hemodynamic and saturation run was performed. At the end the procedure the apparatus was removed the patient was transferred to the postop holding in stable condition ANGIOGRAPHIC RESULTS The left main artery Normal The left anterior descending artery Proximally occluded The circumflex artery Gives rise to a small to medium sized ramus intermedius which has a proximal 30 to 40% stenosis. Distal to the ramus intermedius the circumflex artery has a hazy 30 to 40% stenosis. This gives rise to an obtuse marginal artery which has a distal 40% stenosis while the true circumflex artery has diffuse 30% stenoses throughout The right coronary artery Dominant proximally occluded The DURHAM ventriculogram reveals Normal 65% The left ventricular end-diastolic pressure 30 mmHg D[place] to LAD widely patent Saphenous vein graft to PDA patent Right atrial pressure 16 mmHg Right ventricular pressure 65/20 mmHg Pulmonary artery pressure 65/30 mmHg Pulmonary occlusion pressure 30 mmHg Hemoglobin 9.7 Right atrial saturation 65% Pulmonary artery saturation 68% Aortic saturation 98% Cardiac output 7.5 L/min Cardiac index 3.2 IMPRESSION Patent coronary arteries as described above Moderate to severe pulmonary hypertension Normal ejection fraction PLAN 1. Treatment of HFpEF 2. Consider cardiac MRI 3. Increased diuretics to better treat predominantly left-sided diastolic dysfunction 4. Aggressive risk factor modification 5. Recommend sleep study 6. Weight loss and avoidance of salt and carbonated pop Electronically signed by : Jacob Martínez MD 08/17/2023 12:24:38
[2023-08-16 08:51] LABS: Basophils % 0.1 % (0.1-2.0); Eosinophils % 0.1 % (0.1-12.0); Hematocrit 29.9 % (37.0-47.0); Hemoglobin 9.7 g/dL (12.2-16.2); Lymphocytes # 0.9 K/mm3 (0.7-4.5); Lymphocytes % 13.1 % (10-50); Mean Corpuscular HGB Conc 32.6 g/dL (31.8-35.4); Mean Corpuscular Hemoglobin 22.5 pg (27.0-31.2); Mean Corpuscular Volume 69.1 fl (81-99); Mean Platelet Volume 8.2 fl (7.4-10.4); Monocytes # 0.2 K/mm3 (0.1-1.0); Monocytes % 2.2 % (1.7-9.3); Neutrophils % 84.6 % (37.0-80.0); Platelet Count 304 K/mm3 (142-424); Red Blood Count 4.33 M/mm3 (4.20-5.40); Red Cell Distribution Width 18.8 % (11.5-17.5); White Blood Count 7.1 K/mm3 (4.8-10.8)
[2023-08-16 09:04] LABS: Anion Gap 14.2 mEq/L (5-15); Blood Urea Nitrogen 43 mg/dl (7-17); Calcium 9.2 mg/dl (8.4-10.2); Carbon Dioxide 30 mmol/L (22.0-30.0); Chloride 99 mmol/L (98-107); Creatinine Clearance Estimated 52 mL/min (50-200); Estimated Glomerular Filt Rate 44 ml/min (>60); GFR (African American) 53 ML/MIN (>60); Glucose 241 mg/dl (74-100); Potassium 5.2 mmoL/L (3.5-5.1); Sodium 138 mmol/L (136-145)
[2023-08-16] MEDS: METHYLPREDNISOLONE SOD SUCC 125MG VIAL 125 MG IV (10:32)
[2023-08-16] MEDS: 0.9 % SODIUM CHLORIDE 500 ML 25 ML IV (10:32)
[2023-08-16] MEDS: LIDOCAINE 1% 10ML MDV 20 ML IJ (10:32)
[2023-08-16] MEDS: HEPARIN 1,000 UNITS/500ML NS (CATH LAB) 3000 UNIT IV (10:32)
[2023-08-16] MEDS: diphenhydrAMINE 50MG/ML VIAL 50 MG IV (10:32)
[2023-08-16] MEDS: FAMOTIDINE 20MG/2ML VIAL 20 MG IV (10:37)
[2023-08-16] MEDS: MIDAZOLAM HCL 1MG/1ML 5ML VIAL 1 MG IV (11:08)
[2023-08-16] MEDS: FENTANYL 100MCG/2ML VIAL 50 MCG IV (11:09)
[2023-08-16] MEDS: MORPHINE 4MG/ML SYRINGE 4 MG IV (11:23)
[2023-08-16] MEDS: IOPAMIDOL-370 (76%);100ML BOTTLE 60 ML IV (12:24)
[2023-08-16 12:26] LABS: CATHL Arterial O2 SAT 68.8 % (90-100); CATHL Venous O2 SAT 65.9 % (75-80)
== END 2023-08-16 14:24 | disposition home or self-care (01) ==
PROVIDERS: PCP Physician Assistant; Visit Provider Internal Medicine
DX: E66.01 Morbid (severe) obesity due to excess calories (principal); E78.5 Hyperlipidemia, unspecified; I21.4 Non-ST elevation (NSTEMI) myocardial infarction; I35.0 Nonrheumatic aortic (valve) stenosis; I25.118 Atherosclerotic heart disease of native coronary artery with other forms of angina pectoris; I27.20 Pulmonary hypertension, unspecified; I48.91 Unspecified atrial fibrillation; I50.33 Acute on chronic diastolic (congestive) heart failure; I50.82 Biventricular heart failure; Z68.41 Body mass index [BMI] 40.0-44.9, adult; Z91.041 Radiographic dye allergy status; I11.0 Hypertensive heart disease with heart failure
CPT/HCPCS: 80048; 82810; 85025; 93461; 99152; C1725; C1769; C1894; J1644; Q9967

== ENCOUNTER 2023-08-22 18:03 | Emergency (ER) | payer MEDICARE, MEDICAID, SELFPAY ==
[2023-08-22 18:13] VITALS: BP 157/91; PULSE 78; RESP 15; O2SAT 98
[2023-08-22 18:18] VITALS: BP 157/91; PULSE 66; RESP 20; TEMP 37.1; O2SAT 99; BMI 44.1
--- NOTE | 2023-08-22 18:40 | XR_ITS ---
PROCEDURE INFORMATION: Exam: XR Chest Exam date and time: 08/22/2023 6:45 PM Age: 73 years old Clinical indication: Dyspnea TECHNIQUE: Imaging protocol: Radiologic exam of the chest. Views: 1 view. COMPARISON: CR XR CHEST PORTABLE 07/04/2023 3:35 PM FINDINGS: Lungs: Clear lungs. Pleural spaces: No pneumothorax. No sizable pleural effusion. Heart/Mediastinum: Cardiac size cannot be accurately assessed in this projection. Bones/joints: Sternotomy. IMPRESSION: Clear lungs.
--- NOTE | 2023-08-22 18:40 | CT_ITS ---
PROCEDURE INFORMATION: Exam: CT Head Without Contrast Exam date and time: 08/22/2023 6:49 PM Age: 73 years old Clinical indication: Altered mental status/memory loss TECHNIQUE: Imaging protocol: Computed tomography of the head without contrast. Radiation optimization: All CT scans at this facility use at least one of these dose optimization techniques: automated exposure control; mA and/or kV adjustment per patient size (includes targeted exams where dose is matched to clinical indication); or iterative reconstruction. COMPARISON: CT HEAD/BRAIN WO CON 05/24/2023 12:50 PM FINDINGS: Brain: Age-related involutional changes and chronic microvascular ischemic disease. No evidence for acute transcortical infarct. No mass effect or midline shift. No extra-axial collection. No acute intracranial hemorrhage. Basal cisterns are patent. Cerebral ventricles: No ventriculomegaly. Paranasal sinuses: Visualized sinuses are unremarkable. No fluid levels. Mastoid air cells: Visualized mastoid air cells are well aerated. Orbital cavities: Bilateral cataract surgery. Bones/joints: Unremarkable. No acute fracture. Soft tissues: Unremarkable. IMPRESSION: No evidence for acute transcortical infarct, acute intracranial hemorrhage, or mass effect.
[2023-08-22 18:51] LABS: Microscopic, Urine URINE MICROSCOPIC (MICROSCOPIC)
--- NOTE | 2023-08-22 18:52 | PC.NURSE ---
respiratory notified of vbg order
[2023-08-22 18:58] LABS: VBG HCO3 25.3 mmol/L (23-30); VBG Oxygen Saturation 98.2 % (50-70); VBG PCO2 45.1 mmol/L (35-51); VBG PH 7.37 mmol/L (7.31-7.41); VBG PO2 107.8 mmol/L (28-40); VBG Total CO2 26.7 mmol/L (23-27)
[2023-08-22 18:59] LABS: Basophils % 0.1 % (0.1-2.0); Chloride 98 mmol/L (98-107); Eosinophils % 0.5 % (0.1-12.0); Hematocrit 28.4 % (37.0-47.0); Hemoglobin 9.6 g/dL (12.2-16.2); Lymphocytes % 12.1 % (10-50); Mean Corpuscular HGB Conc 33.9 g/dL (31.8-35.4); Mean Platelet Volume 7.2 fl (7.4-10.4); Monocytes # 0.5 K/mm3 (0.1-1.0); Monocytes % 5.8 % (1.7-9.3); Neutrophils # 6.6 K/mm3 (1.8-7.8); Neutrophils % 81.4 % (37.0-80.0); Platelet Count 206 K/mm3 (142-424); Potassium 4.4 mmoL/L (3.5-5.1); Red Blood Count 4.18 M/mm3 (4.20-5.40); Red Cell Distribution Width 18.8 % (11.5-17.5); Sodium 134 mmol/L (136-145); White Blood Count 8.1 K/mm3 (4.8-10.8)
--- NOTE | 2023-08-22 18:59 | ED_ITS ---
Discharge Plan Disposition Patient Disposition: Home, Self-Care Condition: Good Prescriptions Prescriptions: No Action ascorbate calcium (vitamin C) 500 mg tablet 500 mg PO DAILY zinc acetate 50 mg (zinc) capsule 50 mg PO DAILY prednisone 50 mg tablet 50 mg PO DAILY 3 Days Qty: 3 0RF Rx Instructions: take one tablet 13 hours prior to procedure take one tablet 7 hours prior to procedure take one tablet 1 hour prior to procedure. ondansetron 8 mg tablet,disintegrating 8 mg PO Q8H PRN (Reason: nausea and vomiting) Qty: 30 0RF gabapentin 800 mg tablet 800 mg PO TID Qty: 90 2RF meclizine 25 mg tablet 25 mg PO BID PRN (Reason: dizziness) Qty: 60 0RF Rx Instructions: TAKE 1 TABLET 2 TIMES EACH DAY FOR NAUSEA AND VOMITING hydrocodone-acetaminophen 5-325 mg tablet 1 tab PO QID PRN (Reason: pain) Qty: 120 0RF (DME) pen needle, diabetic [Ultra-Thin II Ins Pen [place]] 29 gauge x 1/2 needle See Rx Instructions .Route Qty: 100 0RF Rx Instructions: As directed (DME) pen needle, diabetic [BD Ultra-Fine Short Pen Needle] 31 gauge x 5/16 needle See Rx Instructions .Route Qty: 1200 0RF Rx Instructions: Use to inject insulin 5 times a day losartan 50 mg tablet 50 mg PO DAILY Qty: 90 1RF icosapent ethyl [Vascepa] 1 gram capsule 2 g PO BID Qty: 360 3RF spironolactone [Aldactone] 50 mg tablet 50 mg PO BID Qty: 180 3RF Eliquis 5 mg tablet 5 mg PO BID 30 Days Qty: 60 0RF atorvastatin 40 mg tablet 40 mg PO HS 30 Days Qty: 30 0RF bumetanide 1 mg tablet 1 mg PO 0800,1400 30 Days Qty: 60 0RF insulin asp prt-insulin aspart [Novolog Mix 70-30FlexPen U-100] 100 unit/mL (70-30) insulin pen 60 unit SQ BID Qty: 15 5RF bisoprolol fumarate 5 mg tablet 5 mg PO HS Qty: 30 11RF cholecalciferol (vitamin D3) 1,000 UNIT capsule 1,000 unit PO BID metoclopramide HCl 5 mg tablet 5 mg PO DAILY Rx Instructions: TAKE 1 TABLET 2 TIMES EACH DAY FOR STOMACH levothyroxine 50 mcg tablet 50 mcg PO DAILY Rx Instructions: TAKE 1 TABLET 1 TIME EACH DAY FOR THYROID omeprazole 20 mg capsule,delayed release(DR/EC) 20 mg PO DAILY Rx Instructions: TAKE 1 CAPSULE 1 TIME EACH DAY FOR REFLUX insulin detemir U-100 100 unit/mL (3 mL) insulin pen 60 unit SQ BID Rx Instructions: INJECT 96 UNITS UNDER THE SKIN 2 TIMES EACH DAY buspirone 5 mg tablet 5 mg PO HS Rx Instructions: TAKE 1 TABLET 1 TIME EACH DAY FOR ANXIETY citalopram 40 mg tablet 40 mg PO DAILY Rx Instructions: TAKE 1 TABLET 1 TIME EACH DAY FOR DEPRESSION clopidogrel 75 mg tablet 75 mg PO DAILY Rx Instructions: TAKE 1 TABLET 1 TIME EACH DAY FOR HEART DISEASE baclofen 10 mg tablet 10 mg PO BID PRN (Reason: MUSCLE SPASMS) Rx Instructions: TAKE 1 TABLET 2 TIMES EACH DAY NEEDED FOR MUSCLE PAIN ergocalciferol (vitamin D2) [Vitamin D2] 1,250 mcg (50,000 unit) capsule 50,000 unit PO WEEKLY Rx Instructions: TAKE 1 CAPSULE 1 TIME EACH WEEK ON SUNDAYS fluticasone furoate-vilanterol [Breo Ellipta] 100-25 mcg/dose blister with device 1 inh inhalation DAILY Rx Instructions: INHALE 1 DOSE 1 TIME EACH DAY Trulicity 0.75 mg/0.5 mL pen injector 0.75 mg SQ WEEKLY Rx Instructions: INJECT THE CONTENTS OF 1 SYRINGE UNDER THE SKIN 1 TIME EACH WEEK ON SATURDAYS cranberry 1,000 mg Capsule 1,500 mg PO DAILY Rx Instructions: administer with meals polyethylene glycol 3350 [Laxative PEG 3350] 17 gram/dose powder 17 g PO DAILY Qty: 238 0RF albuterol sulfate 90 mcg/actuation HFA aerosol inhaler 2 inh INHALATION Q6H PRN (Reason: Shortness Of Breath Or Wheezing) Patient Comments: INHALE 2 TIMES 4 TIMES EACH DAY NEEDED FOR SHORTNESS OF BREATH OR WHEEZING Referrals Follow up/Referrals: Hilary Bagley PA [Primary Care Provider] - See instructions Clinical Impressions Clinical Impression: Physical deconditioning, Urinary incontinence, Intermittent confusion Instructions Patient Instructions: DI for Altered Mental Status Discharge ED Provider: Marie Cho General Adult HPI General Chief complaint: Altered Mental Status Stated complaint: confused, weak, urinating on self, wont talk Time Seen by Provider: 08/22/23 18:28 Mode of Arrival: Wheelchair Source of Information: Patient Limitations: No Limitations Description of Symptoms (Recalled from ER Triage Doc. by RN): Daughter states increased confusion/weakness today. Daughter thinks it could be UTI, called [facility] today and got an order for a urine sample but was unable to collect it at home due to patient being incontinent of urine today. History of Present Illness HPI narrative: Patient is a 73-year-old female brought in today by daughter for concern for urinary tract infection. She was recently admitted in the end of June for pneumonia and was discharged with physical therapy and had 8 weeks of that ended today. She has had a slow progressive decline from a functional status had some urinary incontinence and daughter was worried about urinary tract infection. Daughter also complained of some confusion but denies any other fever chills cough or any other symptoms. Daughter states that the patient has been unwilling to get up and interact with physical therapy lately and that there is been significant difficulty at home with that but they are not to the point where she is unable to care for her at home at the moment. Related Data Home Medications Medication Instructions Recorded Confirmed cholecalciferol (vitamin D3) 25 1,000 unit PO BID Diet supplement 08/11/20 08/16/23 mcg (1,000 unit) capsule ascorbate calcium (vitamin C) 500 500 mg PO DAILY SUPPLEMTN 11/30/20 08/16/23 mg tablet albuterol sulfate 90 mcg/actuation 2 inh inhalation Q6H PRN Shortness 08/01/22 08/16/23 aerosol inhaler Of Breath Or Wheezing zinc acetate 50 mg (zinc) capsule 50 mg PO DAILY 10/06/22 08/16/23 insulin detemir U-100 100 unit/mL 60 unit SQ BID 07/04/23 08/16/23 (3 mL) subcutaneous pen levothyroxine 50 mcg tablet 50 mcg PO DAILY 07/04/23 08/16/23 metoclopramide HCl 5 mg tablet 5 mg PO DAILY 07/04/23 08/16/23 omeprazole 20 mg capsule,delayed 20 mg PO DAILY 07/04/23 08/16/23 release baclofen 10 mg tablet 10 mg PO BID PRN MUSCLE SPASMS 07/05/23 08/16/23 buspirone 5 mg tablet 5 mg PO HS 07/05/23 08/16/23 citalopram 40 mg tablet 40 mg PO DAILY 07/05/23 08/16/23 clopidogrel 75 mg tablet 75 mg PO DAILY 07/05/23 08/16/23 cranberry 1,000 mg capsule 1,500 mg PO DAILY 07/05/23 08/16/23 dulaglutide 0.75 mg/0.5 mL 0.75 mg SQ WEEKLY 07/05/23 08/16/23 subcutaneous pen injector (Trulicity) ergocalciferol (vitamin D2) 1,250 50,000 unit PO WEEKLY 07/05/23 08/16/23 mcg (50,000 unit) capsule (Vitamin D2) fluticasone furoate 100 1 inh inhalation DAILY 07/05/23 08/16/23 mcg-vilanterol 25 mcg/dose inhalation powder (Breo Ellipta) Previous Rx's Medication Instructions Recorded pen needle, diabetic 29 gauge x #100 ea 01/17/2307/25 (Ultra-Thin II Insulin Pen [place]) pen needle, diabetic 31 gauge x #1,200 ea 02/06/2312/06 (BD Ultra-Fine Short Pen Needle) losartan 50 mg tablet 50 mg PO DAILY #90 tabs 04/24/23 ondansetron 8 mg disintegrating 8 mg PO Q8H PRN nausea and 05/03/23 tablet vomiting #30 tabs icosapent ethyl 1 gram capsule 2 g PO BID #360 caps 06/29/23 (Vascepa) spironolactone 50 mg tablet 50 mg PO BID Fluid #180 tabs 06/29/23 (Aldactone) polyethylene glycol 3350 17 17 g PO DAILY #238 grams 07/06/23 gram/dose oral powder (Laxative PEG 3350) apixaban 5 mg tablet (Eliquis) 5 mg PO BID 30 days #60 tabs 07/25/23 atorvastatin 40 mg tablet 40 mg PO HS 30 days #30 tabs 07/25/23 bumetanide 1 mg tablet 1 mg PO 0800,1400 30 days #60 tabs 07/25/23 insulin aspar prot-insulin aspart 60 unit (0.6 mL) SQ BID #15 mL 07/26/23 100 unit/mL (70-30) subcutaneous pen (Novolog Mix 70-30FlexPen U-100) gabapentin 800 mg tablet 800 mg PO TID #90 tabs 08/03/23 meclizine 25 mg tablet 25 mg PO BID PRN dizziness #60 tabs 08/03/23 prednisone 50 mg tablet 50 mg PO DAILY 3 days #3 tabs 08/03/23 hydrocodone 5 mg-acetaminophen 325 1 tab PO QID PRN pain #120 tabs 08/04/23 mg tablet bisoprolol fumarate 5 mg tablet 5 mg PO HS #30 tabs 08/07/23 Allergies Allergy/AdvReac Type Severity Reaction Status Date / Time Iodinated Contrast Media Allergy Intermediate Hives Verified 08/03/23 11:46 [Iodinated Contrast Media - IV Dye] celecoxib [From CELEBREX] Allergy Unknown SWELLING Verified 08/03/23 11:46 ibuprofen [IBUPROFEN] Allergy Unknown S-BLISTERING Verified 08/03/23 11:46 WELTS meloxicam [MELOXICAM] Allergy Unknown S-BLISTERING Verified 08/03/23 11:46 WELTS Penicillins [PENICILLINS] Allergy Unknown I-HIVES Verified 08/03/23 11:46 rofecoxib [From VIOXX] Allergy Unknown I-HIVES Verified 08/03/23 11:46 PFSH PFS Disclaimer: The information contained in this section may have been updated after the patient was seen, as this information can be updated by other users. Medical History Abnormal PFT Anxiety Aortic stenosis Atypical angina Bilateral swelling of feet CHF (congestive heart failure) Chronic hypoxemic respiratory failure Active follow-up with pulmonology Chronic pain Contrast media allergy COPD (chronic obstructive pulmonary disease) Active follow-up with pulmonology Coronary artery disease Depression Diabetes mellitus type 2 non insulin dep Diabetic gastroparesis associated with type 2 diabetes mellitus Diabetic neuropathy associated with type 2 diabetes mellitus Diarrhea Dyspnea Dyspnea on exertion Dyspnea on exertion GERD (gastroesophageal reflux disease) History of 2019 novel coronavirus disease (COVID-19) Hyperlipidemia Hypertension Hypothyroidism IDDM (insulin dependent diabetes mellitus) Lumbar disc disease Lumbar disc disease with radiculopathy Lumbar radiculopathy Lumbar radiculopathy, chronic Lumbar radiculopathy, chronic ERICKSON (obstructive sleep apnea) Proliferative diabetic retinopathy Pulmonary HTN Pulmonary hypertension Restrictive lung disease Restrictive lung disease Sciatica associated with disorder of lumbar spine Sleep disorder breathing Stopped smoking with greater than 30 pack year history Typical angina Vertigo Vitamin D deficiency Weakness Surgical History History of cataract surgery History of eye surgery History of heart valve replacement History of lumpectomy Hx of CABG Family History Other Cancer Diabetes Heart attack Hyperlipidemia Hypertension Stroke Thyroid disorder Social History Smoking Status: Former smoker tobacco type: cigarettes packs per day: 1 second hand exposure: No alcohol intake: never substance use type: denies use current occupational status: unemployed Travel in the last 8 weeks: None household members: children housing: house current occupational exposures/hazards: No caffeine: Yes ROS Obtained: Yes All systems reviewed & no additional complaints except as documented Physical Exam General General appearance: alert and in no apparent distress Head Head exam: atraumatic and normocephalic Respiratory Respiratory exam: Present normal lung sounds bilaterally; Absent respiratory distress Cardiovascular Cardiovascular exam: Present regular rate and normal rhythm Neurological Exam Neurological exam: Present alert, oriented X3 and other (Moving all extremities symmetrically) Medical Decision Making Sam Inquiry Pt receiving controlled substance: No Sam was queried for this patient: No Risks and benefits of using a controlled substance: were not discussed with pt by me Vital Signs: 08/22/23 18:18 08/22/23 18:13 08/22/23 19:01 Temperature 98.7 F Temperature Source Oral Pulse Rate 78 72 Pulse Rate [Right Radial] 66 Respiratory Rate 20 15 24 Blood Pressure 157/91 H 118/75 Blood Pressure [Right Arm] 157/91 H Blood Pressure Mean 121 84 Blood Pressure Mean [Right Arm] 113 Blood Pressure Source Blood Pressure Source [Right Arm] Automatic Cuff Blood Pressure Position Blood Pressure Position [Right Arm] Sitting 02 Sat by Pulse Oximetry 99 98 100 Oxygen Delivery Method Room Air Room Air 08/22/23 20:54 Temperature 97.7 F Temperature Source Oral Pulse Rate 60 Pulse Rate [Right Radial] Respiratory Rate 21 Blood Pressure 118/75 Blood Pressure [Right Arm] Blood Pressure Mean Blood Pressure Mean [Right Arm] Blood Pressure Source Automatic Cuff Blood Pressure Source [Right Arm] Blood Pressure Position Sitting Blood Pressure Position [Right Arm] 02 Sat by Pulse Oximetry Oxygen Delivery Method Room Air Lab Data Lab results reviewed: Yes I reviewed the patient's lab results. Lab Results 08/22/23 18:16: Urine Color Yellow, Urine Appearance Clear, Urine pH 5.5, Ur Specific [place] 1.010, Urine Protein Negative, Urine Glucose (UA) Negative, Urine Ketones Negative, Urine Blood Trace-i, Urine Nitrate Negative, Urine Bilirubin Negative, Urine Urobilinogen 0.2, Ur Leukocyte Esterase Negative, Ur ine RBC Occasional, Urine WBC None, Ur Squamous Epith Cells None, Urine Bacteria None 08/22/23 18:25: WBC 8.1, RBC 4.18 L, Hgb 9.6 L, Hct 28.4 L, MCV 68.0 L, MCH 23.0 L, MCHC 33.9, RDW 18.8 H, Plt Count 206, MPV 7.2 L, Neut % (Auto) 81.4 H, Lymph % (Auto) 12.1, [place] % (Auto) 5.8, Eos % (Auto) 0.5, Baso % (Auto) 0.1, Neut # (Auto) 6.6, Lymph # (Auto) 1.0, [place] # (Auto) 0.5, Eos # (Auto) 0.0, Baso # (Auto) 0.0, Sodium 134 L, Potassium 4.4, Chloride 98, Carbon Dioxide 29, Anion Gap 11.4, BUN 50 H, Creatinine 1.30 H, Estimated Creat Clear 34, Estimated GFR 40 L, Est GFR ( Amer) 48 L, Glucose 171 H, Calcium 8.9, Magnesium 2.7 H, Total Bilirubin 0.5, AST 29, ALT 27, Alkaline Phosphatase 111, Troponin I < 0.01, NT-Pro-B Natriuret Pep 294 H, Total Protein 7.3, Albumin 3.9, Globulin 3.4 H, Albumin/Globulin Ratio 1.1, TSH 1.17 08/22/23 18:53: VBG pH 7.37, VBG pCO2 45.1, VBG pO2 107.8 H, VBG HCO3 25.3, VBG Total CO2 26.7, VBG O2 Saturation 98.2 H, VBG Base Excess 0.0 08/22/23 19:00: Ammonia 11 08/22/23 19:07: SARS-CoV-2 (PCR) Not detected, Influenza A Untype (PCR) Not detected, Influenza Type B (PCR) Not detected 08/22/23 18:25 08/22/23 18:25 Orders (Tests/Meds): ORDERS Category Date Time Status CT head/brain wo con Stat Cat Scan 08/22/23 18:40 Completed CXR --portable [XR chest portable] Stat Exams 08/22/23 18:40 Completed Ammonia Stat Lab 08/22/23 19:00 Completed BNP [Brain Natriuretic Peptide] Stat Lab 08/22/23 18:25 Completed CBC w/Auto Diff [Complete Blood Count Auto Diff] Stat Lab 08/22/23 18:25 Completed CMP [Comprehensive Metabolic Panel] Stat Lab 08/22/23 18:25 Completed Magnesium Stat Lab 08/22/23 18:25 Completed Rapid PCR Covid and Flu A/B Stat Lab 08/22/23 19:07 Completed TSH [Thyroid Stimulating Hormone] Stat Lab 08/22/23 18:25 Completed Trop I [Troponin I] Stat Lab 08/22/23 18:25 Completed UA [Urinalysis and Microscopic] Stat Lab 08/22/23 18:16 Completed Blood Culture Stat Micro 08/22/23 18:43 Ordered Venous Blood Gas Stat RT 08/22/23 18:53 Completed ECG Data Tracing #1: I reviewed this ECG and interpreted as documented below: (EKG performed which I first interpreted shows a sinus rhythm of 61 no acute ischemic changes noted there is nonspecific interventricular conduction delay/right bundle branch block no other conduction abnormalities noted there is normal axis) Medical Decision Narrative: Patient is a 73-year-old female brought in by daughter for concern for altered mental status confusion lethargy and concern for urinary tract infection with bladder incontinence. Cath urine specimen was performed which was unremarkable no evidence of any urinary tract infection. Labs otherwise unremarkable there is some CKD creatinine is 1.3 which is near baseline. No significant leukocytosis chest x-ray performed which I first interpreted shows no acute cardiopulmonary emergency specifically no pneumonia. CT scan of the head was performed which was unremarkable per my personal interpretation and radiology read as well. Electrolytes normal other labs normal from an organ dysfunction standpoint on my reassessment from a neurologic standpoint patient is awake alert oriented answering my questions appropriately she is very fatigued but this is chronic and slowly progressively worsening. I offered admission for discussion of PT OT evaluation in the hospital and possible snf placement or rehab placement but they declined this both the patient and the patient's daughter. They understand this remains an option if her condition worsens at home. Patient was discharged in a stable condition. Critical Care Critical Care Time Critical Care Time: No
[2023-08-22 19:01] VITALS: BP 118/75; PULSE 72; RESP 24; O2SAT 100
[2023-08-22 19:02] LABS: Alanine Aminotransferase 27 U/L (12-78); Albumin Level 3.9 g/dl (3.5-5.0); Albumin/Globulin Ratio 1.1 (1.1-1.8); Alkaline Phosphatase 111 U/L (38-126); Anion Gap 11.4 mEq/L (5-15); Aspartate Amino Transferase 29 U/L (14-36); Bilirubin,Total 0.5 mg/dl (0.2-1.3); Blood Urea Nitrogen 50 mg/dl (7-17); Calcium 8.9 mg/dl (8.4-10.2); Carbon Dioxide 29 mmol/L (22.0-30.0); Creatinine Clearance Estimated 34 mL/min (50-200); Estimated Glomerular Filt Rate 40 ml/min (>60); GFR (African American) 48 ML/MIN (>60); Globulin 3.4 g/dL (1.3-3.2); Glucose 171 mg/dl (74-100); Total Protein,Serum 7.3 g/dl (6.3-8.2)
[2023-08-22 19:12] LABS: NT Pro Brain Natriuretic Pep. 294 pg/mL (0-125)
--- NOTE | 2023-08-22 19:13 | ECG_ITS ---
APPROVED REPORT Exam: Resting ECG HR:61 bpm ECG Measurements Heart Rate 61 AXES WI 201 P 12 QRSd 149 QRS 34 QT 435 T 39 QTc 437 Conclusion SINUS RHYTHM WITH OCCASIONAL SUPRAVENTRICULAR PREMATURE COMPLEXES RIGHT BUNDLE BRANCH BLOCK [120+ ms QRS DURATION, UPRIGHT V1, 40+ ms S IN I/aVL/V4/V5/V6] ABNORMAL ECG UNCONFIRMED REPORT Electronically signed by : Andrade Pack MD 08/23/2023 22:43:09
[2023-08-22 19:15] LABS: Coronavirus 19, PCR Not Detected (NotDetected); Influenza A, PCR Not Detected (NotDetected); Influenza B, PCR Not Detected (NotDetected)
[2023-08-22 19:17] LABS: Appearance,Urine CLEAR (Clear); Bilirubin,Urine Negative (Negative); Blood, Urine TRACE-I (Negative); Color,Urine YELLOW (Yellow); Glucose,Urine (UA) Negative (Negative); Ketones,Urine Negative (Negative); Leukocyte Esterase,Urine Negative (Negative); Nitrate,Urine Negative (Negative); PH,Urine 5.5 (5.0-8.5); Protein,Urine Negative (Negative); Urobilinogen,Urine 0.2 EU/dl (0.2)
[2023-08-22 19:26] LABS: Magnesium 2.7 mg/dl (1.6-2.3)
[2023-08-22 19:29] LABS: Ammonia 11 umol/L (9-30)
[2023-08-22 19:41] LABS: RBC,Urine Occasional #/hpf (0-3)
[2023-08-22 19:41] LABS: Troponin I < 0.01 ng/ml (0.00-0.034)
[2023-08-22 19:58] LABS: Thyroid Stimulating Hormone 1.17 uIU/mL (0.465-4.68)
[2023-08-22 20:54] VITALS: BP 118/75; PULSE 60; RESP 21; TEMP 36.5; O2SAT 100
== END 2023-08-22 21:09 | disposition home or self-care (01) ==
PROVIDERS: Emergency Provider Student in an Organized Health Care Education/Training Program; PCP Physician Assistant
DX: R41.0 Disorientation, unspecified (principal); R53.1 Weakness; R32 Unspecified urinary incontinence; I35.0 Nonrheumatic aortic (valve) stenosis; I25.118 Atherosclerotic heart disease of native coronary artery with other forms of angina pectoris; I11.0 Hypertensive heart disease with heart failure; I50.9 Heart failure, unspecified; J44.9 Chronic obstructive pulmonary disease, unspecified; E11.43 Type 2 diabetes mellitus with diabetic autonomic (poly)neuropathy; K31.84 Gastroparesis; E03.9 Hypothyroidism, unspecified; E11.3599 Type 2 diabetes mellitus with proliferative diabetic retinopathy without macular edema, unspecified eye; I27.20 Pulmonary hypertension, unspecified; Z87.891 Personal history of nicotine dependence
CPT/HCPCS: 36415; 70450; 71045; 80053; 81001; 82140; 82803; 83735; 83880; 84443; 84484; 85025; 87040; 87636; 93005

== ENCOUNTER 2023-08-23 16:06 | Inpatient (IN) | payer MEDICARE, MEDICAID, SELFPAY ==
[2023-08-23] VITALS (9 sets, daily range): BP systolic 109–143; BP diastolic 47–67; PULSE 56–65; RESP 16–23; TEMP 36.7–37.3; O2SAT 90–100; BMI 44.1; BMI 42.3
--- NOTE | 2023-08-23 16:39 | XR_ITS ---
PROCEDURE INFORMATION: Exam: XR Chest Exam date and time: 08/23/2023 4:49 PM Age: 73 years old Clinical indication: Shortness of breath; Patient HX: Same as last night when she was seen in er. ; Additional info: SOA, tired, confused, chf TECHNIQUE: Imaging protocol: Radiologic exam of the chest. Views: 1 view. COMPARISON: CR XR CHEST PORTABLE 08/22/2023 6:45 PM FINDINGS: Lungs: No evidence of pneumonia or interstitial edema. There is poor ventilation of the lungs, with perihilar vascular crowding and a diffuse increase in pulmonary parenchymal density. Pleural spaces: Unremarkable. No pleural effusion. No pneumothorax. Heart/Mediastinum: Cardiomegaly noted. Postoperative changes from prior coronary artery bypass graft. Bones/joints: Sternotomy wires are intact. IMPRESSION: No evidence of pneumonia or interstitial edema. There is poor ventilation of the lungs, with perihilar vascular crowding and a diffuse increase in pulmonary parenchymal density.
--- NOTE | 2023-08-23 16:44 | CT_ITS ---
PROCEDURE INFORMATION: Exam: CT Abdomen And Pelvis Without Contrast Exam date and time: 08/23/2023 5:04 PM Age: 73 years old Clinical indication: Abdominal pain; Generalized; Patient HX: Same symptoms she had last night. We cat scanned her last night as well. ; Additional info: Rlq and suprapubic pain TECHNIQUE: Imaging protocol: Computed tomography of the abdomen and pelvis without contrast. Radiation optimization: All CT scans at this facility use at least one of these dose optimization techniques: automated exposure control; mA and/or kV adjustment per patient size (includes targeted exams where dose is matched to clinical indication); or iterative reconstruction. COMPARISON: CT BONY PELVIS 08/10/2023 6:04 AM FINDINGS: Limitations: The absence of intravenous contrast limits the assessment of vascular structures, lesions and lymphadenopathy. Lungs: Lung bases are unremarkable. Heart: Cardiomegaly attributable to multi cardiac chamber enlargement. There is calcification of the aortic valve annulus. Mitral annulus calcifications noted. Liver: No focal hepatic lesions within the limits of noncontrast examination. Gallbladder and bile ducts: There has been a cholecystectomy. Pancreas: No peripancreatic fluid stranding. No main pancreatic ductal dilation. Spleen: Multiple splenic granulomas Adrenal glands: Nodular thickening of the left adrenal gland noted Kidneys and ureters: No nephrolithiasis or hydroureteronephrosis on either side. Stomach and bowel: No bowel wall thickening or distention. Appendix: A normal appendix is not well visualized. However, no evidence of inflammatory changes in the right lower quadrant to suggest acute appendicitis. Intraperitoneal space: There is no evidence of free intraperitoneal or pelvic fluid. Vasculature: The aorta demonstrates moderate atherosclerotic calcification. Lymph nodes: No lymphadenopathy. Urinary bladder: Urinary bladder is unremarkable. Reproductive: Status post hysterectomy. Bones/joints: Multilevel degenerative changes of the included spine. No acute osseous abnormality. Soft tissues: Unremarkable. IMPRESSION: No acute abnormality in the abdomen or pelvis
[2023-08-23 16:57] LABS: Basophils % 0.2 % (0.1-2.0); Eosinophils % 0.1 % (0.1-12.0); Hematocrit 26.2 % (37.0-47.0); Hemoglobin 9.4 g/dL (12.2-16.2); Lymphocytes # 1.1 K/mm3 (0.7-4.5); Lymphocytes % 11.4 % (10-50); Mean Corpuscular HGB Conc 35.9 g/dL (31.8-35.4); Mean Corpuscular Hemoglobin 24.1 pg (27.0-31.2); Mean Corpuscular Volume 67.2 fl (81-99); Monocytes # 0.5 K/mm3 (0.1-1.0); Monocytes % 4.9 % (1.7-9.3); Neutrophils # 8.4 K/mm3 (1.8-7.8); Neutrophils % 83.4 % (37.0-80.0); Platelet Count 202 K/mm3 (142-424)
[2023-08-23 16:59] LABS: Chloride 99 mmol/L (98-107); Sodium 133 mmol/L (136-145)
[2023-08-23 17:00] LABS: Potassium 4.8 mmoL/L (3.5-5.1)
[2023-08-23 17:02] LABS: Alanine Aminotransferase 25 U/L (12-78); Albumin Level 3.9 g/dl (3.5-5.0); Albumin/Globulin Ratio 1.1 (1.1-1.8); Alkaline Phosphatase 107 U/L (38-126); Anion Gap 10.8 mEq/L (5-15); Aspartate Amino Transferase 32 U/L (14-36); Bilirubin,Total 0.7 mg/dl (0.2-1.3); Blood Urea Nitrogen 49 mg/dl (7-17); Carbon Dioxide 28 mmol/L (22.0-30.0); Creatinine Clearance Estimated 34 mL/min (50-200); Estimated Glomerular Filt Rate 40 ml/min (>60); GFR (African American) 48 ML/MIN (>60); Globulin 3.4 g/dL (1.3-3.2); Total Protein,Serum 7.3 g/dl (6.3-8.2)
[2023-08-23 17:03] LABS: Calcium 9.1 mg/dl (8.4-10.2); Glucose 139 mg/dl (74-100)
--- NOTE | 2023-08-23 17:09 | ED_ITS ---
Discharge Plan Disposition Chief Complaint: Shortness of Breath/Dyspnea Prescriptions Prescriptions: No Action ascorbate calcium (vitamin C) 500 mg tablet 500 mg PO DAILY zinc acetate 50 mg (zinc) capsule 50 mg PO DAILY prednisone 50 mg tablet 50 mg PO DAILY 3 Days Qty: 3 0RF Rx Instructions: take one tablet 13 hours prior to procedure take one tablet 7 hours prior to procedure take one tablet 1 hour prior to procedure. ondansetron 8 mg tablet,disintegrating 8 mg PO Q8H PRN (Reason: nausea and vomiting) Qty: 30 0RF gabapentin 800 mg tablet 800 mg PO TID Qty: 90 2RF meclizine 25 mg tablet 25 mg PO BID PRN (Reason: dizziness) Qty: 60 0RF Rx Instructions: TAKE 1 TABLET 2 TIMES EACH DAY FOR NAUSEA AND VOMITING hydrocodone-acetaminophen 5-325 mg tablet 1 tab PO QID PRN (Reason: pain) Qty: 120 0RF (DME) pen needle, diabetic [Ultra-Thin II Ins Pen [place]] 29 gauge x 1/2 needle See Rx Instructions .Route Qty: 100 0RF Rx Instructions: As directed (DME) pen needle, diabetic [BD Ultra-Fine Short Pen Needle] 31 gauge x 5/16 needle See Rx Instructions .Route Qty: 1200 0RF Rx Instructions: Use to inject insulin 5 times a day losartan 50 mg tablet 50 mg PO DAILY Qty: 90 1RF icosapent ethyl [Vascepa] 1 gram capsule 2 g PO BID Qty: 360 3RF spironolactone [Aldactone] 50 mg tablet 50 mg PO BID Qty: 180 3RF Eliquis 5 mg tablet 5 mg PO BID 30 Days Qty: 60 0RF atorvastatin 40 mg tablet 40 mg PO HS 30 Days Qty: 30 0RF bumetanide 1 mg tablet 1 mg PO 0800,1400 30 Days Qty: 60 0RF insulin asp prt-insulin aspart [Novolog Mix 70-30FlexPen U-100] 100 unit/mL (70-30) insulin pen 60 unit SQ BID Qty: 15 5RF bisoprolol fumarate 5 mg tablet 5 mg PO HS Qty: 30 11RF cholecalciferol (vitamin D3) 1,000 UNIT capsule 1,000 unit PO BID metoclopramide HCl 5 mg tablet 5 mg PO DAILY Rx Instructions: TAKE 1 TABLET 2 TIMES EACH DAY FOR STOMACH levothyroxine 50 mcg tablet 50 mcg PO DAILY Rx Instructions: TAKE 1 TABLET 1 TIME EACH DAY FOR THYROID omeprazole 20 mg capsule,delayed release(DR/EC) 20 mg PO DAILY Rx Instructions: TAKE 1 CAPSULE 1 TIME EACH DAY FOR REFLUX insulin detemir U-100 100 unit/mL (3 mL) insulin pen 60 unit SQ BID Rx Instructions: INJECT 96 UNITS UNDER THE SKIN 2 TIMES EACH DAY buspirone 5 mg tablet 5 mg PO HS Rx Instructions: TAKE 1 TABLET 1 TIME EACH DAY FOR ANXIETY citalopram 40 mg tablet 40 mg PO DAILY Rx Instructions: TAKE 1 TABLET 1 TIME EACH DAY FOR DEPRESSION clopidogrel 75 mg tablet 75 mg PO DAILY Rx Instructions: TAKE 1 TABLET 1 TIME EACH DAY FOR HEART DISEASE baclofen 10 mg tablet 10 mg PO BID PRN (Reason: MUSCLE SPASMS) Rx Instructions: TAKE 1 TABLET 2 TIMES EACH DAY NEEDED FOR MUSCLE PAIN ergocalciferol (vitamin D2) [Vitamin D2] 1,250 mcg (50,000 unit) capsule 50,000 unit PO WEEKLY Rx Instructions: TAKE 1 CAPSULE 1 TIME EACH WEEK ON SUNDAYS fluticasone furoate-vilanterol [Breo Ellipta] 100-25 mcg/dose blister with device 1 inh inhalation DAILY Rx Instructions: INHALE 1 DOSE 1 TIME EACH DAY Trulicity 0.75 mg/0.5 mL pen injector 0.75 mg SQ WEEKLY Rx Instructions: INJECT THE CONTENTS OF 1 SYRINGE UNDER THE SKIN 1 TIME EACH WEEK ON SATURDAYS cranberry 1,000 mg Capsule 1,500 mg PO DAILY Rx Instructions: administer with meals polyethylene glycol 3350 [Laxative PEG 3350] 17 gram/dose powder 17 g PO DAILY Qty: 238 0RF albuterol sulfate 90 mcg/actuation HFA aerosol inhaler 2 inh INHALATION Q6H PRN (Reason: Shortness Of Breath Or Wheezing) Patient Comments: INHALE 2 TIMES 4 TIMES EACH DAY NEEDED FOR SHORTNESS OF BREATH OR WHEEZING Referrals Follow up/Referrals: Hilary Bagley PA [Primary Care Provider] - See instructions Discharge ED Provider: Jason Lucas General Adult HPI General Chief complaint: Shortness of Breath/Dyspnea Stated complaint: sent from [facility] build up Time Seen by Provider: 08/23/23 16:11 Mode of Arrival: Wheelchair Source of Information: Patient Limitations: No Limitations Description of Symptoms (Recalled from ER Triage Doc. by RN): Sent from cardiology office related to possible CHF exacerbation. Patient complaint of weakness and swelling. History of Present Illness HPI narrative: 73-year-old male with failure to thrive. She is hypertension, hyperlipidemia, aortic stenosis, mitral valve regurgitation, CAD status post CABG, A-fib on Eliquis, CHF on 2.5 L nasal cannula, diabetes, COPD on nightly BiPAP, amongst many other things. Patient's family states that she has been on a decline for the past 2 days. Was seen in the emergency department yesterday, 08/22 and worked up, workup was negative, so discharged home. Today, patient had generalized weakness, largely unable to participate in home health/PT/OT, so patient was brought to the emergency department by family. Patient has no complaints at this time, is on same amount of oxygen. Denies chest pain, shortness of breath, nausea or vomiting, fevers or chills, dysuria, or any other concerns. Related Data Home Medications Medication Instructions Recorded Confirmed cholecalciferol (vitamin D3) 25 1,000 unit PO BID Diet supplement 08/11/20 08/23/23 mcg (1,000 unit) capsule ascorbate calcium (vitamin C) 500 500 mg PO DAILY SUPPLEMTN 11/30/20 08/23/23 mg tablet albuterol sulfate 90 mcg/actuation 2 inh inhalation Q6H PRN Shortness 08/01/22 08/23/23 aerosol inhaler Of Breath Or Wheezing zinc acetate 50 mg (zinc) capsule 50 mg PO DAILY 10/06/22 08/23/23 insulin detemir U-100 100 unit/mL 60 unit SQ BID 07/04/23 08/23/23 (3 mL) subcutaneous pen levothyroxine 50 mcg tablet 50 mcg PO DAILY 07/04/23 08/23/23 metoclopramide HCl 5 mg tablet 5 mg PO DAILY 07/04/23 08/23/23 omeprazole 20 mg capsule,delayed 20 mg PO DAILY 07/04/23 08/23/23 release baclofen 10 mg tablet 10 mg PO BID PRN MUSCLE SPASMS 07/05/23 08/23/23 buspirone 5 mg tablet 5 mg PO HS 07/05/23 08/23/23 citalopram 40 mg tablet 40 mg PO DAILY 07/05/23 08/23/23 clopidogrel 75 mg tablet 75 mg PO DAILY 07/05/23 08/23/23 cranberry 1,000 mg capsule 1,500 mg PO DAILY 07/05/23 08/23/23 dulaglutide 0.75 mg/0.5 mL 0.75 mg SQ WEEKLY 07/05/23 08/23/23 subcutaneous pen injector (Trulicity) ergocalciferol (vitamin D2) 1,250 50,000 unit PO WEEKLY 07/05/23 08/23/23 mcg (50,000 unit) capsule (Vitamin D2) fluticasone furoate 100 1 inh inhalation DAILY 07/05/23 08/23/23 mcg-vilanterol 25 mcg/dose inhalation powder (Breo Ellipta) Previous Rx's Medication Instructions Recorded pen needle, diabetic 29 gauge x #100 ea 01/17/2307/25 (Ultra-Thin II Insulin Pen [place]) pen needle, diabetic 31 gauge x #1,200 ea 02/06/2312/06 (BD Ultra-Fine Short Pen Needle) losartan 50 mg tablet 50 mg PO DAILY #90 tabs 04/24/23 ondansetron 8 mg disintegrating 8 mg PO Q8H PRN nausea and 05/03/23 tablet vomiting #30 tabs icosapent ethyl 1 gram capsule 2 g PO BID #360 caps 06/29/23 (Vascepa) spironolactone 50 mg tablet 50 mg PO BID Fluid #180 tabs 06/29/23 (Aldactone) polyethylene glycol 3350 17 17 g PO DAILY #238 grams 07/06/23 gram/dose oral powder (Laxative PEG 3350) apixaban 5 mg tablet (Eliquis) 5 mg PO BID 30 days #60 tabs 07/25/23 atorvastatin 40 mg tablet 40 mg PO HS 30 days #30 tabs 07/25/23 bumetanide 1 mg tablet 1 mg PO 0800,1400 30 days #60 tabs 07/25/23 insulin aspar prot-insulin aspart 60 unit (0.6 mL) SQ BID #15 mL 07/26/23 100 unit/mL (70-30) subcutaneous pen (Novolog Mix 70-30FlexPen U-100) gabapentin 800 mg tablet 800 mg PO TID #90 tabs 08/03/23 meclizine 25 mg tablet 25 mg PO BID PRN dizziness #60 tabs 08/03/23 prednisone 50 mg tablet 50 mg PO DAILY 3 days #3 tabs 08/03/23 hydrocodone 5 mg-acetaminophen 325 1 tab PO QID PRN pain #120 tabs 08/04/23 mg tablet bisoprolol fumarate 5 mg tablet 5 mg PO HS #30 tabs 08/07/23 Allergies Allergy/AdvReac Type Severity Reaction Status Date / Time Iodinated Contrast Media Allergy Intermediate Hives Verified 08/23/23 14:44 [Iodinated Contrast Media - IV Dye] celecoxib [From CELEBREX] Allergy Unknown SWELLING Verified 08/23/23 14:44 ibuprofen [IBUPROFEN] Allergy Unknown S-BLISTERING Verified 08/23/23 14:44 WELTS meloxicam [MELOXICAM] Allergy Unknown S-BLISTERING Verified 08/23/23 14:44 WELTS Penicillins [PENICILLINS] Allergy Unknown I-HIVES Verified 08/23/23 14:44 rofecoxib [From VIOXX] Allergy Unknown I-HIVES Verified 08/23/23 14:44 PFSH PFS Disclaimer: The information contained in this section may have been updated after the patient was seen, as this information can be updated by other users. Medical History Abnormal PFT Anxiety Aortic stenosis Atypical angina Bilateral swelling of feet CHF (congestive heart failure) Chronic hypoxemic respiratory failure Active follow-up with pulmonology Chronic pain Contrast media allergy COPD (chronic obstructive pulmonary disease) Active follow-up with pulmonology Coronary artery disease Depression Diabetes mellitus type 2 non insulin dep Diabetic gastroparesis associated with type 2 diabetes mellitus Diabetic neuropathy associated with type 2 diabetes mellitus Diarrhea Dyspnea Dyspnea on exertion Dyspnea on exertion GERD (gastroesophageal reflux disease) History of 2019 novel coronavirus disease (COVID-19) Hyperlipidemia Hypertension Hypothyroidism IDDM (insulin dependent diabetes mellitus) Lumbar disc disease Lumbar disc disease with radiculopathy Lumbar radiculopathy Lumbar radiculopathy, chronic Lumbar radiculopathy, chronic ERICKSON (obstructive sleep apnea) Proliferative diabetic retinopathy Pulmonary HTN Pulmonary hypertension Restrictive lung disease Restrictive lung disease Sciatica associated with disorder of lumbar spine Sleep disorder breathing Stopped smoking with greater than 30 pack year history Typical angina Vertigo Vitamin D deficiency Weakness Surgical History History of cataract surgery History of eye surgery History of heart valve replacement History of lumpectomy Hx of CABG Family History Other Cancer Diabetes Heart attack Hyperlipidemia Hypertension Stroke Thyroid disorder Social History Smoking Status: Never smoker second hand exposure: No alcohol intake: never substance use type: denies use current occupational status: unemployed Travel in the last 8 weeks: None household members: children housing: house current occupational exposures/hazards: No caffeine: Yes ROS Obtained: Yes All systems reviewed & no additional complaints except as documented Physical Exam General General appearance: alert and in no apparent distress Head Head exam: atraumatic and normocephalic Eye Eye exam: Present normal appearance, PERRL and EOMI ENT ENT exam: Present mucous membranes moist Neck Neck exam: Present normal inspection, full ROM and trachea midline Respiratory Respiratory exam: Present other (Decreased breath sounds inferiorly); Absent respiratory distress, wheezes, stridor, accessory muscle use or prolonged expiratory phase Cardiovascular Cardiovascular exam: Present regular rate, irregular rhythm and systolic murmur (Right upper sternal border, left lower sternal border, apex) Abdominal Exam Abdominal exam: Present soft; Absent distention, tenderness, guarding, rebound or rigidity Extremities Exam Extremities exam: Present edema (Nonpitting) Neurological Exam Neurological exam: Present alert, oriented X3, CN II-XII intact and normal gait; Absent motor sensory deficit Skin Skin exam: Present warm and dry; Absent diaphoresis or erythema Medical Decision Making Medical Records Medical records reviewed: Yes I reviewed the patient's medical records. Sam Inquiry Pt receiving controlled substance: No Sam was queried for this patient: No Vital Signs: 08/23/23 16:07 08/23/23 16:31 Temperature 98.6 F Temperature Source Oral Pulse Rate 60 Pulse Rate [Radial] 65 Respiratory Rate 20 16 Blood Pressure 128/57 L Blood Pressure [Right Arm] 127/56 L Blood Pressure Mean 80 Blood Pressure Mean [Right Arm] 79 Blood Pressure Source [Right Arm] Automatic Cuff Blood Pressure Position [Right Arm] Sitting 02 Sat by Pulse Oximetry 95 100 Oxygen Delivery Method Nasal Cannula Oxygen Flow Rate (LPM) 2.5 Lab Data Lab Results 08/23/23 16:28: WBC 10.0, RBC 3.90 L, Hgb 9.4 L, Hct 26.2 L, MCV 67.2 L, MCH 24.1 L, MCHC 35.9 H, RDW 19.0 H, Plt Count 202, MPV 8.0, Neut % (Auto) 83.4 H, Lymph % (Auto) 11.4, Moffat % (Auto) 4.9, Eos % (Auto) 0.1, Baso % (Auto) 0.2, Neut # (Auto) 8.4 H, Lymph # (Auto) 1.1, Moffat # (Auto) 0.5, Eos # (Auto) 0.0, Baso # (Auto) 0.0, Sodium 133 L, Potassium 4.8, Chloride 99, Carbon Dioxide 28, Anion Gap 10.8, BUN 49 H, Creatinine 1.30 H, Estimated Creat Clear 34, Estimated GFR 40 L, Est GFR ( Amer) 48 L, Glucose 139 H, Calcium 9.1, Total Bilirubin 0.7, AST 32, ALT 25, Alkaline Phosphatase 107, Troponin I < 0.01, NT-Pro-B Natriuret Pep 559 H, Total Protein 7.3, Albumin 3.9, Globulin 3.4 H, Albumin/Globulin Ratio 1.1 08/23/23 16:39: VBG pH 7.43 H, VBG pCO2 37.2, VBG pO2 148.2 H, VBG HCO3 24.1, VBG Total CO2 25.3, VBG O2 Saturation 99.0 H, VBG Base Excess -0.2 08/23/23 16:28 08/23/23 16:28 Orders (Tests/Meds): ED MEDICATIONS Generic Name Dose Route Start Last Admin Trade Name Freq PRN Reason Stop Dose Admin Furosemide 40 mg 08/23/23 17:55 Furosemide 40mg/4ml Vial IV 08/23/23 17:56 ONCE ONE ORDERS Category Date Time Status CT abdomen pelvis wo con Stat Cat Scan 08/23/23 16:44 Completed CXR --portable [XR chest portable] Stat Exams 08/23/23 16:39 Completed POCUS Point of Care (ER Only) Stat Exams 08/23/23 17:09 Ordered Brain Natriuretic Peptide Stat Lab 08/23/23 16:28 Completed CBC w/Auto Diff [Complete Blood Count Auto Diff] Stat Lab 08/23/23 16:28 Completed CMP [Comprehensive Metabolic Panel] Stat Lab 08/23/23 16:28 Completed Trop I [Troponin I] Stat Lab 08/23/23 16:28 Completed Troponin I Q3H Lab 08/23/23 19:45 Ordered Troponin I Q3H Lab 08/23/23 22:45 Ordered VBG [Venous Blood Gas] Stat RT 08/23/23 16:39 Completed Medical Decision Narrative: 73-year-old male with failure to thrive. She is hypertension, hyperlipidemia, aortic stenosis, mitral valve regurgitation, CAD status post CABG, A-fib on El iquis, CHF on 2.5 L nasal cannula, diabetes, COPD on nightly BiPAP, amongst many other things. Patient's family states that she has been on a decline for the past 2 days. Was seen in the emergency department yesterday, 08/22 and worked up, workup was negative, so discharged home. Today, patient had generalized weakness, largely unable to participate in home health/PT/OT, so patient was brought to the emergency department by family. Patient has no complaints at this time, is on same amount of oxygen. Denies chest pain, shortness of breath, nausea or vomiting, fevers or chills, dysuria, or any other concerns. History was obtained via conversation with patient, family, chart review. On arrival, patient hemodynamically stable, alert, oriented x4, appropriate, GCS 14, moving all extremities spontaneously, pupils equal and reactive to light. Full physical exam performed and significant for chronically ill-appearing woman in no acute distress. Tired, but arouses to voice. Patient has multiple systolic ejection murmurs heard throughout the precordium. Decreased breath sounds in lower lung torres. Patient also has nonpitting lower extremity edema bilaterally. Abdomen is soft, nondistended, but tender in the right lower quadrant/suprapubic area without signs of peritonitis, she also has candidiasis and pannus fold. Differential includes metabolic abnormality, endocrinologic abnormality, CHF exacerbation, ACS, MD, COPD exacerbation, pneumonia, among others. Patient was given 40 mg IV Lasix for symptomatic management and correction of underlying abnormalities. Workup independently interpreted and significant for nonactionable CBC or chemistry. Patient has stable CKD. Regarding heart labs, troponin negative, but BNP elevated at 560, up from 300 just yesterday. Chest x-ray without acute cardiopulmonary airspace disease. CT of the abdomen pelvis without contrast without concern for perforation, obstruction, any inflammatory process, or any acute process intra-abdominal he. See radiology read for full review of final results. Cardiac ultrasound with right heart strain evidenced by mild dilation, but no evidence of septal bowing or effusion. On reevaluation, patient resting comfortably in bed. Hospital medicine contacted and case was discussed at length, see their note for recommendations and admission. Given patient presentation, workup, history, this most likely represents CHF exacerbation. Because patient high risk for clinical decompensation, deemed appropriate for inpatient admission. Patient was, per family, supposed to be admitted today after visiting cardiology for JOY and electrical cardioversion. This was relayed to hospitalist team. Results were relayed to patient who voiced understanding and patient was agreeable to inpatient admission and management. Patient was admitted to the hospital for further definitive management. Procedures Limited Ultrasound Indication:: Limited cardiac ultrasound Indication: Shortness of breath, failure to thrive Identified cardiac views: -Cardiac parasternal long axis -Cardiac parasternal short axis -Cardiac apical four-chamber Findings: -Cardiac activity present -Gross wall motion normal, global dyskinesis -Pericardial effusion absent -Right heart strain present Impression: -Right heart strain, with global dyskinesis Images were saved to permanent archive The study was technically adequate CPT: 28810 This study was performed by me, and I personally interpreted all images/videos. Based on my clinical judgement, these images were adequate and did not necessitate further imaging. Critical Care Critical Care Time Critical Care Time: No
[2023-08-23 17:12] LABS: NT Pro Brain Natriuretic Pep. 559 pg/mL (0-125)
[2023-08-23 17:21] LABS: VBG Base Excess -0.2 mmol/L (-2.4-2.3); VBG HCO3 24.1 mmol/L (23-30); VBG PCO2 37.2 mmol/L (35-51); VBG PH 7.43 mmol/L (7.31-7.41); VBG PO2 148.2 mmol/L (28-40); VBG Total CO2 25.3 mmol/L (23-27)
[2023-08-23 17:26] LABS: Troponin I < 0.01 ng/ml (0.00-0.034)
--- NOTE | 2023-08-23 17:55 | PC.NURSE ---
DR BAEZ SPEAKING WITH HOSPITALIST FOR ADMISSION
--- NOTE | 2023-08-23 18:04 | PC.NURSE ---
[employer] NOTIFIED OF ADMISSION
[2023-08-23] MEDS: FUROSEMIDE 40MG/4ML VIAL 40 MG IV (18:23)
--- NOTE | 2023-08-23 18:27 | PC.NURSE ---
Report given to Eva Mtz RN on Med Surg.
--- NOTE | 2023-08-23 18:36 | PC.NURSE ---
arrived by stretcher from ED
--- NOTE | 2023-08-23 18:56 | PC.NURSE ---
Med rec completed using external medication history
--- NOTE | 2023-08-23 19:57 | P.HP_ITS ---
History of Present Illness *Admission Date: 08/23/23 *History of present illness: This is a 73-year-old female with PMHx of hypertension, hyperlipidemia, aortic stenosis, mitral valve regurgitation, CAD status post CABG, A-fib on Eliquis, CHF on 2.5 L nasal cannula, diabetes, COPD on nightly BiPAP, obese amongst many other things. Patient's family states that she has been on a decline for the past 2 days. Was seen in the emergency department yesterday, 08/22 and worked up, workup was negative, so discharged home. also seen at cardiology office for f/u for CHF exacerbation and fluid overload. Today, patient had generalized weakness, largely unable to participate in home health/PT/OT, so patient was brought to the emergency department by family. Patient has no complaints at this time, is on same amount of oxygen. Denies chest pain, shortness of breath, nausea or vomiting, fevers or chills, dysuria, or any other concerns. Admitted for further management. [facility] Disclaimer: The information contained in this section may have been updated after the patient was seen, as this information can be updated by other users. Medical History Abnormal PFT Anxiety Aortic stenosis Atypical angina Bilateral swelling of feet CHF (congestive heart failure) Chronic hypoxemic respiratory failure Active follow-up with pulmonology Chronic pain Contrast media allergy COPD (chronic obstructive pulmonary disease) Active follow-up with pulmonology Coronary artery disease Depression Diabetes mellitus type 2 non insulin dep Diabetic gastroparesis associated with type 2 diabetes mellitus Diabetic neuropathy associated with type 2 diabetes mellitus Diarrhea Dyspnea Dyspnea on exertion Dyspnea on exertion GERD (gastroesophageal reflux disease) History of 2019 novel coronavirus disease (COVID-19) Hyperlipidemia Hypertension Hypothyroidism IDDM (insulin dependent diabetes mellitus) Lumbar disc disease Lumbar disc disease with radiculopathy Lumbar radiculopathy Lumbar radiculopathy, chronic Lumbar radiculopathy, chronic ERICKSON (obstructive sleep apnea) Proliferative diabetic retinopathy Pulmonary HTN Pulmonary hypertension Restrictive lung disease Restrictive lung disease Sciatica associated with disorder of lumbar spine Sleep disorder breathing Stopped smoking with greater than 30 pack year history Typical angina Vertigo Vitamin D deficiency Weakness Surgical History History of cataract surgery History of eye surgery History of heart valve replacement History of lumpectomy Hx of CABG Family History Other Cancer Diabetes Heart attack Hyperlipidemia Hypertension Stroke Thyroid disorder Social History (Updated 08/23/23 @ 18:41 by Samira Rain RN) Smoking Status: Never smoker second hand exposure: No alcohol intake: never substance use type: denies use current occupational status: unemployed Travel in the last 8 weeks: None household members: children housing: house current occupational exposures/hazards: No caffeine: Yes Review of Systems Review of Systems Review of systems:: pertinent systems reviewed and negative unless documented below Meds Home Medications and Allergies Home Medications Medication Instructions Recorded Confirmed Type cholecalciferol (vitamin D3) 25 1,000 unit PO BID Diet supplement 08/11/20 08/23/23 History mcg (1,000 unit) capsule ascorbate calcium (vitamin C) 500 500 mg PO DAILY SUPPLEMTN 11/30/20 08/23/23 History mg tablet albuterol sulfate 90 mcg/actuation 2 inh inhalation Q6H PRN Shortness 08/01/22 08/23/23 History aerosol inhaler Of Breath Or Wheezing zinc acetate 50 mg (zinc) capsule 50 mg PO DAILY 10/06/22 08/23/23 History pen needle, diabetic 29 gauge x #100 ea 01/17/23 08/23/23 Rx 1/2 (Ultra-Thin II Insulin Pen Whitmore) pen needle, diabetic 31 gauge x #1,200 ea 02/06/23 08/23/23 Rx 5/16 (BD Ultra-Fine Short Pen Needle) losartan 50 mg tablet 50 mg PO DAILY #90 tabs 04/24/23 08/23/23 Rx icosapent ethyl 1 gram capsule 2 g PO BID #360 caps 06/29/23 08/23/23 Rx (Vascepa) spironolactone 50 mg tablet 50 mg PO BID Fluid #180 tabs 06/29/23 08/23/23 Rx (Aldactone) insulin detemir U-100 100 unit/mL 60 unit SQ BID 07/04/23 08/23/23 History (3 mL) subcutaneous pen levothyroxine 50 mcg tablet 50 mcg PO DAILY 07/04/23 08/23/23 History metoclopramide HCl 5 mg tablet 5 mg PO BID 07/04/23 08/24/23 History omeprazole 20 mg capsule,delayed 20 mg PO DAILY 07/04/23 08/23/23 History release baclofen 10 mg tablet 10 mg PO BIDP PRN muscle spasms 07/05/23 08/24/23 History buspirone 5 mg tablet 5 mg PO HS 07/05/23 08/23/23 History citalopram 40 mg tablet 40 mg PO DAILY 07/05/23 08/23/23 History clopidogrel 75 mg tablet 75 mg PO DAILY 07/05/23 08/23/23 History cranberry 1,000 mg capsule 1,500 mg PO DAILY 07/05/23 08/23/23 History dulaglutide 0.75 mg/0.5 mL 0.75 mg SQ WEEKLY 07/05/23 08/23/23 History subcutaneous pen injector (Trulicity) ergocalciferol (vitamin D2) 1,250 50,000 unit PO WEEKLY 07/05/23 08/23/23 History mcg (50,000 unit) capsule (Vitamin D2) fluticasone furoate 100 1 inh inhalation DAILY 07/05/23 08/23/23 History mcg-vilanterol 25 mcg/dose inhalation powder (Breo Ellipta) polyethylene glycol 3350 17 17 g PO DAILY #238 grams 07/06/23 08/23/23 Rx gram/dose oral powder (Laxative PEG 3350) apixaban 5 mg tablet (Eliquis) 5 mg PO BID 30 days #60 tabs 07/25/23 08/23/23 Rx atorvastatin 40 mg tablet 40 mg PO HS 30 days #30 tabs 07/25/23 08/23/23 Rx bumetanide 1 mg tablet 1 mg PO 0800,1400 30 days #60 tabs 07/25/23 08/23/23 Rx insulin aspar prot-insulin aspart 60 unit (0.6 mL) SQ BID #15 mL 07/26/23 08/23/23 Rx 100 unit/mL (70-30) subcutaneous pen (Novolog Mix 70-30FlexPen U-100) gabapentin 800 mg tablet 800 mg PO TID #90 tabs 08/03/23 08/23/23 Rx meclizine 25 mg tablet 25 mg PO BID PRN dizziness #60 tabs 08/03/23 08/23/23 Rx hydrocodone 5 mg-acetaminophen 325 1 tab PO QID PRN pain #120 tabs 08/04/23 08/23/23 Rx mg tablet bisoprolol fumarate 5 mg tablet 5 mg PO HS #30 tabs 08/07/23 08/23/23 Rx New Prescriptions to Start Prescriptions: Allergies Allergy/AdvReac Type Severity Reaction Status Date / Time Iodinated Contrast Media Allergy Intermediate Hives Verified 08/23/23 14:44 [Iodinated Contrast Media - IV Dye] celecoxib [From CELEBREX] Allergy Unknown SWELLING Verified 08/23/23 14:44 ibuprofen [IBUPROFEN] Allergy Unknown S-BLISTERING Verified 08/23/23 14:44 WELTS meloxicam [MELOXICAM] Allergy Unknown S-BLISTERING Verified 08/23/23 14:44 WELTS Penicillins [PENICILLINS] Allergy Unknown I-HIVES Verified 08/23/23 14:44 rofecoxib [From VIOXX] Allergy Unknown I-HIVES Verified 08/23/23 14:44 Exam Data for Last 24 hours Vital signs and Labs for Last 24 Hours: Temp Pulse Resp BP Pulse Ox O2 Del Method O2 Flow Rate 99.1 F 62 18 143/67 H 99 Nasal Cannula 2.5 08/23/23 18:48 08/23/23 19:36 08/23/23 18:48 08/23/23 18:48 08/23/23 19:36 08/23/23 19:36 08/23/23 19:36 Laboratory Results - last 24 hr 08/23/23 16:28: WBC 10.0, RBC 3.90 L, Hgb 9.4 L, Hct 26.2 L, MCV 67.2 L, MCH 24.1 L, MCHC 35.9 H, RDW 19.0 H, Plt Count 202, MPV 8.0, Neut % (Auto) 83.4 H, Lymph % (Auto) 11.4, [place] % (Auto) 4.9, Eos % (Auto) 0.1, Baso % (Auto) 0.2, Neut # (Auto) 8.4 H, Lymph # (Auto) 1.1, [place] # (Auto) 0.5, Eos # (Auto) 0.0, Baso # (Auto) 0.0, Sodium 133 L, Potassium 4.8, Chloride 99, Carbon Dioxide 28, Anion Gap 10.8, BUN 49 H, Creatinine 1.30 H, Estimated Creat Clear 34, Estimated GFR 40 L, Est GFR ( Amer) 48 L, Glucose 139 H, Calcium 9.1, Total Bilirubin 0.7, AST 32, ALT 25, Alkaline Phosphatase 107, Troponin I < 0.01, NT-Pro-B Natriuret Pep 559 H, Total Protein 7.3, Albumin 3.9, Globulin 3.4 H, Albumin/Globulin Ratio 1.1 08/23/23 16:39: VBG pH 7.43 H, VBG pCO2 37.2, VBG pO2 148.2 H, VBG HCO3 24.1, VBG Total CO2 25.3, VBG O2 Saturation 99.0 H, VBG Base Excess -0.2 I & O for Last 24 hours: Intake & Output 08/20/23 08/21/23 08/22/23 08/23/23 23:59 23:59 23:59 23:59 Weight 115.269 kg Constitutional Constitutional: no acute distress and morbidly obese *Routine HEENT Exam Head: Present normocephalic and atraumatic Eye: Present EOMI, PERRL and normal accommodation ENT: Present mucous membranes moist *Routine Neck Exam Neck: Present supple and full ROM *Routine Respiratory Exam Respiratory: Present prolonged expiratory phase, wheezes, crackles, normal respiratory effort and able to speak in complete sentences *Routine Cardiovascular Exam Cardiovascular: Present Normal S1, Normal S2, irregular rhythm and irregularly irregular *Routine Abdominal Exam Abdominal: Present soft and normoactive bowel sounds *Routine Rectal Exam Rectal:: deferred *Routine Genitalia Exam Genitalia:: deferred *Routine Extremities Exam Extremities: Present edema, full ROM, pulses intact and normal capillary refill *Routine Skin Exam Skin: Present intact and dry *Routine Neurological Exam Neurological: Present alert and altered mental status H&P: Result Imaging and Cardiology EKG: Status: image reviewed by me Assessment and Plan *Assessment and plan (1) CHF exacerbation: Status: Acute Qualifiers: Heart failure type: combined systolic and diastolic Qualified Code(s): I50.43 - Acute on chronic combined systolic (congestive) and diastolic (conges tive) heart failure Category: Medical Code(s): I50.9 - Heart failure, unspecified (2) Diabetes mellitus: Problem Comment: type 2 non insulin dep Status: Chronic Qualifiers: Diabetes mellitus complication status: with hyperglycemia Diabetes mellitus long term care administrator insulin use: with fci use Diabetes mellitus type: type 2 Qualified Code(s): E11.65 - Type 2 diabetes mellitus with hyperglycemia Category: Medical Code(s): E11.9 - Type 2 diabetes mellitus without complications (3) Hypertension: Status: Chronic Qualifiers: Hypertension type: essential hypertension Qualified Code(s): I10 - Essential (primary) hypertension Category: Medical Code(s): I10 - Essential (primary) hypertension (4) Hyperlipidemia: Status: Chronic Qualifiers: Hyperlipidemia type: unspecified Qualified Code(s): E78.5 - Hyperlipidemia, unspecified Category: Medical Code(s): E78.5 - Hyperlipidemia, unspecified (5) Morbid obesity with BMI of 40.0-44.9, adult: Status: Acute Category: Medical Code(s): E66.01 - Morbid (severe) obesity due to excess calories; Z68.41 - Body mass index [BMI] 40.0-44.9, adult (6) Physical deconditioning: Status: Acute Category: Medical Code(s): R53.81 - Other malaise Plan This is a 73-year-old female with PMHx of hypertension, hyperlipidemia, aortic stenosis, mitral valve regurgitation, CAD status post CABG, A-fib on Eliquis, CHF on 2.5 L nasal cannula, diabetes, COPD on nightly BiPAP, obese amongst many other things. Patient's family states that she has been on a decline for the past 2 days. on arrival, patient has stable CKD. Regarding heart labs, troponin negative, but BNP elevated at 560, up from 300 just yesterday. Chest x-ray without acute cardiopulmonary airspace disease. CT abd negative. Discussed with ER. apparently most of her symptoms are related to fluid overload, with significant burden to patient physical activity. agreed for admission. Plan as follow: -CHF exacerbation: Admit patient for medical service. Plan for diuresis. Lasix 40 mg given IV. Will repeat dose Cardiology consult. Appreciate their recommendations -Diabetes insulin-dependent: With gastroparesis and neuropathy: Resume home regimen On gabapentin and hydrocodone Hypertension hyperlipidemia: Conditions are reviewed Resume losartan spironolactone bisoprolol Patient on statin and Eliquis and Plavix Morbid obesity with comorbidity: Suspected concomitant fluid overload Physical deconditioning, unable to care for herself: PT OT consult for eval and treatment sales and marketing manager will be involved for assistance on the discharge planning Full code Attending attestation Patient was seen and evaluated at the bedside myself, agree with MOSHE note.
[2023-08-23] MEDS: PANTOPRAZOLE 40MG TABLET 40 MG PO (20:03)
[2023-08-23] MEDS: ACETAMINOPHEN 325MG TAB 650 MG PO (20:31)
[2023-08-23 20:46] LABS: Troponin I < 0.01 ng/ml (0.00-0.034)
[2023-08-23 23:26] LABS: Troponin I < 0.01 ng/ml (0.00-0.034)
[2023-08-24] VITALS (9 sets, daily range): BP systolic 103–134; BP diastolic 54–68; PULSE 60–80; RESP 16–26; TEMP 37.1–38.3; O2SAT 92–99; BMI 43.7
[2023-08-24 05:45] LABS: POC Glucose,Bedside 159 (70-110)
[2023-08-24] MEDS: humaLOG 100 UNITS/ML 3ML VIAL (SSI) SQ (05:47)
--- NOTE | 2023-08-24 06:15 | PC.NURSE ---
Took primary care of patient earlier in shift from previous RN. Patient has slept without concern or acute changes. She remains confused at baseline. Plan is to involve case management for further evaluation. VSS, NAD otherwise.
[2023-08-24 06:39] LABS: Chloride 100 mmol/L (98-107)
[2023-08-24 06:40] LABS: Potassium 4.2 mmoL/L (3.5-5.1); Sodium 134 mmol/L (136-145)
[2023-08-24 06:42] LABS: Alanine Aminotransferase 22 U/L (12-78); Aspartate Amino Transferase 29 U/L (14-36); Blood Urea Nitrogen 49 mg/dl (7-17); Creatinine Clearance Estimated 33 mL/min (50-200); Estimated Glomerular Filt Rate 40 ml/min (>60); GFR (African American) 48 ML/MIN (>60)
[2023-08-24 06:43] LABS: Albumin Level 3.5 g/dl (3.5-5.0); Albumin/Globulin Ratio 1.1 (1.1-1.8); Alkaline Phosphatase 107 U/L (38-126); Anion Gap 11.2 mEq/L (5-15); Bilirubin,Total 0.6 mg/dl (0.2-1.3); Calcium 8.7 mg/dl (8.4-10.2); Carbon Dioxide 27 mmol/L (22.0-30.0); Globulin 3.2 g/dL (1.3-3.2); Glucose 143 mg/dl (74-100); Magnesium 2.5 mg/dl (1.6-2.3); Total Protein,Serum 6.7 g/dl (6.3-8.2)
--- NOTE | 2023-08-24 08:09 | HMH.PHAINT1 ---
Pharmacy Intervention Comments: home medicaiton list verified using list from outpatient pharmacy and pt interview
[2023-08-24] MEDS: FUROSEMIDE 40MG/4ML VIAL 40 MG IV (08:21)
[2023-08-24] MEDS: ACETAMINOPHEN 325MG TAB 650 MG PO ×2 (08:21→23:28)
[2023-08-24] MEDS: POLYETHYLENE GLYCOL 3350 238GM POWDER 17 GM PO (08:22)
[2023-08-24] MEDS: IRBESARTAN 75MG TABLET 75 MG PO (08:22)
[2023-08-24] MEDS: METOCLOPRAMIDE 5MG TABLET 5 MG PO (08:23)
[2023-08-24] MEDS: GABAPENTIN 800MG TABLET 800 MG PO ×3 (08:23→21:48)
[2023-08-24] MEDS: BUMETANIDE 1 MG TABLET PO (08:23)
[2023-08-24] MEDS: CLOPIDOGREL 75MG TAB 75 MG PO (08:23)
[2023-08-24] MEDS: LEVOTHYROXINE 50MCG (0.05MG) TAB 50 MCG PO (08:23)
[2023-08-24] MEDS: CITALOPRAM 40MG TABLET 40 MG PO (08:23)
[2023-08-24] MEDS: SPIRONOLACTONE 25MG TABLET 50 MG PO ×2 (08:24→21:48)
[2023-08-24] MEDS: APIXABAN 5MG TABLET 5 MG PO ×2 (08:24→21:48)
[2023-08-24 08:44] LABS: POC Glucose,Bedside 161 (70-110)
[2023-08-24] MEDS: humaLOG MIX 75/25 3ML FLEXPEN 60 UNIT SQ (08:53)
[2023-08-24] MEDS: INSULIN DETEMIR 100 UNIT/ML 3ML FLEXPEN 60 UNIT SQ (08:56)
[2023-08-24 10:09] LABS: NT Pro Brain Natriuretic Pep. 452 pg/mL (0-125)
--- NOTE | 2023-08-24 11:19 | P.CONCA_ITS ---
History of Present Illness History of Present Illness Consult date: 08/24/23 Requesting physician: Demetria Mendoza Consult reason: congestive heart failure Chief complaint: Failure to thrive, CHF Additional Medical History:: 1. CAD A. Hx of CABG in 1996. B. Left heart catheterization, 08/16/2023, mild to moderate CAD of circumflex artery. LAD and RCA occluded. Patent DARLING to LAD, SVG to PDA. LVEDP 30 mmHg. EF 65%. 2. PAFib is rate controlled. A. A/c Eliquis, denies bleeding. 3. Partial DVT of the right radial vein. 4. HTN A. Echocardiogram, 06/2023, EF 55% with grade 2 diastolic dysfunction. Mod erate with a mean valve area of 1.2 cm?. Mild MS. Mild TR and DE. Mild biatrial dilation. 5. HLD-LDL goal is < 55. A LDL is 36. Managed by PCP. On statin. 6. Valvular heart disease A. Aortic stenosis, moderate, worsening. B. Mitral Regurgitation, worsening, 7. Biventricular CHF, angina/dyspnea/CHF/measure aortic valve gradient. A. Right heart catheterization, 08/16/2023, right atrial pressure 16 mmHg, RVP 65/20 mmHg, PAP 65/30 mmHg, PA OP 30 mmHg, cardiac output 7.5 L/min with cardiac index 3.2 8. Pulmonary HTN severe,worsening dyspnea. A. RHC, 08/16/2023, moderate to severe pulmonary hypertension 9. Restrictive lung disease is present. on home oxygen. 10. DM2 is present, on insulin. History of present illness: 73-year-old white female with multiple medical issues as noted above was seen in the office yesterday and felt to be suffering from failure to thrive on top of biventricular congestive heart failure and confusion. Patient was sent to the emergency department for evaluation and recommendation for admission for further evaluation and treatment. [facility] Disclaimer: The information contained in this section may have been updated after the patient was seen, as this information can be updated by other users. Medical History Abnormal PFT Anxiety Aortic stenosis Atypical angina Bilateral swelling of feet CHF (congestive heart failure) Chronic hypoxemic respiratory failure Active follow-up with pulmonology Chronic pain Contrast media allergy COPD (chronic obstructive pulmonary disease) Active follow-up with pulmonology Coronary artery disease Depression Diabetes mellitus type 2 non insulin dep Diabetic gastroparesis associated with type 2 diabetes mellitus Diabetic neuropathy associated with type 2 diabetes mellitus Diarrhea Dyspnea Dyspnea on exertion Dyspnea on exertion GERD (gastroesophageal reflux disease) History of 2019 novel coronavirus disease (COVID-19) Hyperlipidemia Hypertension Hypothyroidism IDDM (insulin dependent diabetes mellitus) Lumbar disc disease Lumbar disc disease with radiculopathy Lumbar radiculopathy Lumbar radiculopathy, chronic Lumbar radiculopathy, chronic ERICKSON (obstructive sleep apnea) Proliferative diabetic retinopathy Pulmonary HTN Pulmonary hypertension Restrictive lung disease Restrictive lung disease Sciatica associated with disorder of lumbar spine Sleep disorder breathing Stopped smoking with greater than 30 pack year history Typical angina Vertigo Vitamin D deficiency Weakness Surgical History History of cataract surgery History of eye surgery History of heart valve replacement History of lumpectomy Hx of CABG Family History Other Cancer Diabetes Heart attack Hyperlipidemia Hypertension Stroke Thyroid disorder Social History (Updated 08/23/23 @ 18:41 by Samira Rain RN) Smoking Status: Never smoker second hand exposure: No alcohol intake: never substance use type: denies use current occupational status: unemployed Travel in the last 8 weeks: None household members: children housing: house current occupational exposures/hazards: No caffeine: Yes Review of Systems Review of Systems Review of systems:: pertinent systems reviewed and negative unless documented below *Cardiovascular Cardiovascular: Reports dyspnea, Reports dyspnea on exertion, Reports edema and Reports orthopnea *Respiratory Respiratory: Reports cough, Reports dyspnea and Reports dyspnea on exertion Exam Data for Last 24 hours Vital signs and Labs for Last 24 Hours: Temp Pulse Resp BP Pulse Ox O2 Del Method O2 Flow Rate 101.0 F H 71 20 110/55 L 92 L Nasal Cannula 2 08/24/23 08:00 08/24/23 08:00 08/24/23 08:00 08/24/23 08:00 08/24/23 08:00 08/24/23 10:57 08/24/23 10:57 Laboratory Results - last 24 hr 08/23/23 16:28: WBC 10.0, RBC 3.90 L, Hgb 9.4 L, Hct 26.2 L, MCV 67.2 L, MCH 24.1 L, MCHC 35.9 H, RDW 19.0 H, Plt Count 202, MPV 8.0, Neut % (Auto) 83.4 H, Lymph % (Auto) 11.4, [place] % (Auto) 4.9, Eos % (Auto) 0.1, Baso % (Auto) 0.2, Neut # (Auto) 8.4 H, Lymph # (Auto) 1.1, [place] # (Auto) 0.5, Eos # (Auto) 0.0, Baso # (Auto) 0.0, Sodium 133 L, Potassium 4.8, Chloride 99, Carbon Dioxide 28, Anion Gap 10.8, BUN 49 H, Creatinine 1.30 H, Estimated Creat Clear 34, Estimated GFR 40 L, Est GFR ( Amer) 48 L, Glucose 139 H, Calcium 9.1, Total Bilirubin 0.7, AST 32, ALT 25, Alkaline Phosphatase 107, Troponin I < 0.01, NT-Pro-B Natriuret Pep 559 H, Total Protein 7.3, Albumin 3.9, Globulin 3.4 H, Albumin/Globulin Ratio 1.1 08/23/23 16:39: VBG pH 7.43 H, VBG pCO2 37.2, VBG pO2 148.2 H, VBG HCO3 24.1, VBG Total CO2 25.3, VBG O2 Saturation 99.0 H, VBG Base Excess -0.2 08/23/23 19:47: Troponin I < 0.01 08/23/23 22:40: Troponin I < 0.01 08/24/23 05:36: POC Glucose 159 H 08/24/23 06:10: Sodium 134 L, Potassium 4.2, Chloride 100, Carbon Dioxide 27, Anion Gap 11.2, BUN 49 H, Creatinine 1.30 H, Estimated Creat Clear 33, Estimated GFR 40 L, Est GFR ( Amer) 48 L, Glucose 143 H, Calcium 8.7, Magnesium 2.5 H, Total Bilirubin 0.6, AST 29, ALT 22, Alkaline Phosphatase 107, NT-Pro-B Natriuret Pep 452 H, Total Protein 6.7, Albumin 3.5 D, Globulin 3.2, Albumin/Globulin Ratio 1.1 08/24/23 08:36: POC Glucose 161 H I & O for Last 24 hours: Intake & Output 08/21/23 08/22/23 08/23/23 08/24/23 11:59 11:59 11:59 11:59 Intake Total 400 / 400 Output Total 400 / 400 Balance 0 / 0 Weight 262 lb 9.6 oz Constitutional Constitutional: no acute distress *Routine Respiratory Exam Respiratory: Present decreased breath sounds, rales and diminished air movement *Routine Cardiovascular Exam Cardiovascular: Present RRR *Routine Extremities Exam Extremities: Present edema *Routine Neurological Exam Neurological: Present alert and oriented X3 Meds Home Medications and Allergies Home Medications Medication Instructions Recorded Confirmed Type cholecalciferol (vitamin D3) 25 1,000 unit PO BID Diet supplement 08/11/20 08/23/23 History mcg (1,000 unit) capsule ascorbate calcium (vitamin C) 500 500 mg PO DAILY SUPPLEMTN 11/30/20 08/23/23 History mg tablet albuterol sulfate 90 mcg/actuation 2 inh inhalation Q6H PRN Shortness 08/01/22 08/23/23 History aerosol inhaler Of Breath Or Wheezing zinc acetate 50 mg (zinc) capsule 50 mg PO DAILY 10/06/22 08/23/23 History pen needle, diabetic 29 gauge x #100 ea 01/17/23 08/23/23 Rx 1/2 (Ultra-Thin II Insulin Pen Cora) pen needle, diabetic 31 gauge x #1,200 ea 02/06/23 08/23/23 Rx 5/16 (BD Ultra-Fine Short Pen Needle) losartan 50 mg tablet 50 mg PO DAILY #90 tabs 04/24/23 08/23/23 Rx icosapent ethyl 1 gram capsule 2 g PO BID #360 caps 06/29/23 08/23/23 Rx (Vascepa) spironolactone 50 mg tablet 50 mg PO BID Fluid #180 tabs 06/29/23 08/23/23 Rx (Aldactone) insulin detemir U-100 100 unit/mL 60 unit SQ BID 07/04/23 08/23/23 History (3 mL) subcutaneous pen levothyroxine 50 mcg tablet 50 mcg PO DAILY 07/04/23 08/23/23 History metoclopramide HCl 5 mg tablet 5 mg PO BID 07/04/23 08/24/23 History omeprazole 20 mg capsule,delayed 20 mg PO DAILY 07/04/23 08/23/23 History release baclofen 10 mg tablet 10 mg PO BIDP PRN muscle spasms 07/05/23 08/24/23 History buspirone 5 mg tablet 5 mg PO HS 07/05/23 08/23/23 History citalopram 40 mg tablet 40 mg PO DAILY 07/05/23 08/23/23 History clopidogrel 75 mg tablet 75 mg PO DAILY 07/05/23 08/23/23 History cranberry 1,000 mg capsule 1,500 mg PO DAILY 07/05/23 08/23/23 History dulaglutide 0.75 mg/0.5 mL 0.75 mg SQ WEEKLY 07/05/23 08/23/23 History subcutaneous pen injector (Trulicity) ergocalciferol (vitamin D2) 1,250 50,000 unit PO WEEKLY 07/05/23 08/23/23 History mcg (50,000 unit) capsule (Vitamin D2) fluticasone furoate 100 1 inh inhalation DAILY 07/05/23 08/23/23 History mcg-vilanterol 25 mcg/dose inhalation powder (Breo Ellipta) polyethylene glycol 3350 17 17 g PO DAILY #238 grams 07/06/23 08/23/23 Rx gram/dose oral powder (Laxative PEG 3350) apixaban 5 mg tablet (Eliquis) 5 mg PO BID 30 days #60 tabs 07/25/23 08/23/23 Rx atorvastatin 40 mg tablet 40 mg PO HS 30 days #30 tabs 07/25/23 08/23/23 Rx bumetanide 1 mg tablet 1 mg PO 0800,1400 30 days #60 tabs 07/25/23 08/23/23 Rx insulin aspar prot-insulin aspart 60 unit (0.6 mL) SQ BID #15 mL 07/26/23 08/23/23 Rx 100 unit/mL (70-30) subcutaneous pen (Novolog Mix 70-30FlexPen U-100) gabapentin 800 mg tablet 800 mg PO TID #90 tabs 08/03/23 08/23/23 Rx meclizine 25 mg tablet 25 mg PO BID PRN dizziness #60 tabs 08/03/23 08/23/23 Rx hydrocodone 5 mg-acetaminophen 325 1 tab PO QID PRN pain #120 tabs 08/04/23 08/23/23 Rx mg tablet bisoprolol fumarate 5 mg tablet 5 mg PO HS #30 tabs 08/07/23 08/23/23 Rx New Prescriptions to Start Prescriptions: Allergies Allergy/AdvReac Type Severity Reaction Status Date / Time Iodinated Contrast Media Allergy Intermediate Hives Verified 08/23/23 14:44 [Iodinated Contrast Media - IV Dye] celecoxib [From CELEBREX] Allergy Unknown SWELLING Verified 08/23/23 14:44 ibuprofen [IBUPROFEN] Allergy Unknown S-BLISTERING Verified 08/23/23 14:44 WELTS meloxicam [MELOXICAM] Allergy Unknown S-BLISTERING Verified 08/23/23 14:44 WELTS Penicillins [PENICILLINS] Allergy Unknown I-HIVES Verified 08/23/23 14:44 rofecoxib [From VIOXX] Allergy Unknown I-HIVES Verified 08/23/23 14:44 Assessment and Plan *Assessment and plan (1) Pulmonary HTN: Status: Chronic Category: Medical Code(s): I27.20 - Pulmonary hypertension, unspecified (2) Biventricular CHF (congestive heart failure): Status: Chronic Category: Medical Code(s): I50.82 - Biventricular heart failure (3) Morbid obesity with BMI of 40.0-44.9, adult: Status: Acute Category: Medical Code(s): E66.01 - Morbid (severe) obesity due to excess calories; Z68.41 - Body mass index [BMI] 40.0-44.9, adult (4) Coronary artery disease: Status: Chronic Qualifiers: Associated angina: without angina Coronary Disease-Associated Artery/Lesion type: [place] artery [place] vs. 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 Diabetes mellitus type: type 2 Qualified Code(s): E11.65 - Type 2 diabetes mellitus with hyperglycemia Category: Medical Code(s): E11.9 - Type 2 diabetes mellitus without complications (6) Atrial fibrillation: Status: Acute Qualifiers: Atrial fibrillation type: unspecified chronic Qualified Code(s): I48.20 - Chronic atrial fibrillation, unspecified Category: Medical Code(s): I48.91 - Unspecified atrial fibrillation (7) Adult failure to thrive: Status: Acute Category: Medical Code(s): R62.7 - Adult failure to thrive (8) Aortic stenosis: Status: Acute Qualifiers: Cardiac valve disease etiology: etiology unspecified Qualified Code(s): I35.0 - Nonrheumatic aortic (valve) stenosis Category: Medical Code(s): I35.0 - Nonrheumatic aortic (valve) stenosis Plan 1. Biventricular congestive heart failure -Start Bumex drip -Continue Aldactone and Trulicity -Continue ARB and beta-pedro therapy 2. Moderate to severe pulmonary hypertension which is exacerbated by biventricular CHF 3. Morbid obesity 4. CAD with recent C showing patent bypass grafts -Continue Plavix 5. History of atrial fibrillation -Continue Eliquis therapy 6. Hyperlipidemia -Continue statin therapy 7. Chronic anemia with hemoglobin around 9 8. CKD, stage IIIb -Baseline creatinine around 1.2 and GFR around 44 Continue bumex gtt Follow renal functions and I/O
[2023-08-24 11:20] LABS: POC Glucose,Bedside 158 (70-110)
[2023-08-24] MEDS: BUMETANIDE 10 MG in 0.9 % SODIUM CHLORIDE 60 ML 5 MG IV (11:55)
[2023-08-24] MEDS: HYDROCODONE/APAP 5/325 MG TABLET 1 TAB PO (12:58)
--- NOTE | 2023-08-24 13:49 | HMH.OTEV ---
OT Inpatient Evaluation Rehab OT IP Evaluation Start: 08/24/23 10:08 Freq: ONCE Status: Active Protocol: Document 08/24/23 13:43 [facility] (Rec: 08/24/23 13:49 [facility] [id number]) Rehab OT IP Assessment Subjective History Pt oriented x 2 on arrival. Pt agreeable to engage in therapy evaluation. Pt admitted on 08/23/23 due to CHF and failure to thrive. Prior to being in the hospital, pt lived with her son and daugther in law. Pt reports normally she requires assistance with ADLs such as dressing and bathing. However , pt also reports she is dependent upon family for completion of all IADLs. Pt does use a rolling walker during functional transfers, but she also requires assistance with ambulation. History and Physical report: This is a 73-year-old female with PMHx of hypertension, hyperlipidemia, aortic stenosis, mitral valve regurgitation, CAD status post CABG, A-fib on Eliquis, CHF on 2.5 L nasal cannula, diabetes, COPD on nightly BiPAP, obese amongst many other things. Patient's family states that she has been on a decline for the past 2 days. Was seen in the emergency department yesterday , 08/22 and worked up, workup was negative, so discharged home. also seen at cardiology office for f/u for CHF exacerbation and fluid overload. Today, patient had generalized weakness, largely unable to participate in home health/PT/OT, so patient was brought to the emergency department by family. Patient has no complaints at this time, is on same amount of oxygen. Denies chest pain, shortness of breath, nausea or vomiting, fevers or chills, dysuria, or any other concerns . Admitted for further management. Subjective I don't know if I can. Objective Patient Orientation Person,Birthday Right Upper Extremity Gross ROM WFL Left Upper Extremity Gross ROM WFL Bed Mobility bed mobility-scooting,bed mobility - supine/sit Assist Level Moderate x 2 (50% assist) Transfer Training Sit/Stand Transfer Assist Level Moderate x 2 (50% assist) Rehab OT IP prob,goals,plan Problems Date of Evaluation: 08/24/23 OT IP Problems Bed Mobility,Transfers,Balance ,Self care,Safety Rehab Potential Rehab Potential Good Equipment Needs Assistive Devices Rolling / Wheeled Walker Plan OT intervention Plan Bed Mobility,Transfers,Balance ,Self care,Safety,Therapeutic Exercise OT Plan Frequency Daily Duration LOS Discharge Goals Bed Mobility Ability Assistance x1 Sit to Stand Chair Transfer Ability Minimal x 2 (25% assist) Chair Transfer Ability Minimal x 2 (25% assist) Chair Transfer Technique Sit to/from Ambulatory Chair Transfer Assistive Devices Rolling Walker Feeding Ability Assist with Tray Set Up Lower Body Dressing Ability Moderate Assistance Upper Body Dressing Ability Minimal Assistance Bathing Ability Moderate Assistance Performing Toilet Hygiene Ability Moderate Assistance Overall Commode/Toilet Transfer Ability Minimal Assistance Commode/Toilet Transfer Technique Sit to/from Ambulatory Commode/Toilet Transfer Assistive Raised Toilet Seat,Grab Bars Devices Oral Care Assist Minimal Assistance Decrease in Endurance Yes Discharge Plan OT Discharge Plan Pt will continue to be seen for OT services at this time. Pt would benefit most from short term rehab SNF placement upon discharge. However, pt appears to be reluctant to do so. If family is able to provide 24/7 assist she could possibly return home with continued HHOT services. Continued skilled therapy is important in order for patient to improve strength, safety, endurance, ADL independence, and functional transfers to reach PLOF. Eval Complexity Eval Charge Codes 76490 - Moderate Complexity PHYSICIAN CERTIFICATION: I certify the specified therapy services for Shilpa Armas are required, authorized, and reviewed every 30 days.
--- NOTE | 2023-08-24 14:02 | EXP.PN ---
Subjective *Date: 08/24/23 *Time: 14:02 Interval history: patient was seen and evaluated at the bedside. She feels better, SOB is better, No reported acute events overnight, denies chest pain, nausea, vomiting, abdominal pain. Exam Data for Last 24 hours Vital signs and Labs for Last 24 Hours: Temp Pulse Resp BP Pulse Ox O2 Del Method O2 Flow Rate 101.0 F H 65 20 110/55 L 92 L Nasal Cannula 2 08/24/23 08:00 08/24/23 12:00 08/24/23 08:00 08/24/23 08:00 08/24/23 08:00 08/24/23 10:57 08/24/23 10:57 Laboratory Results - last 24 hr 08/23/23 16:28: WBC 10.0, RBC 3.90 L, Hgb 9.4 L, Hct 26.2 L, MCV 67.2 L, MCH 24.1 L, MCHC 35.9 H, RDW 19.0 H, Plt Count 202, MPV 8.0, Neut % (Auto) 83.4 H, Lymph % (Auto) 11.4, [place] % (Auto) 4.9, Eos % (Auto) 0.1, Baso % (Auto) 0.2, Neut # (Auto) 8.4 H, Lymph # (Auto) 1.1, [place] # (Auto) 0.5, Eos # (Auto) 0.0, Baso # (Auto) 0.0, Sodium 133 L, Potassium 4.8, Chloride 99, Carbon Dioxide 28, Anion Gap 10.8, BUN 49 H, Creatinine 1.30 H, Estimated Creat Clear 34, Estimated GFR 40 L, Est GFR ( Amer) 48 L, Glucose 139 H, Calcium 9.1, Total Bilirubin 0.7, AST 32, ALT 25, Alkaline Phosphatase 107, Troponin I < 0.01, NT-Pro-B Natriuret Pep 559 H, Total Protein 7.3, Albumin 3.9, Globulin 3.4 H, Albumin/Globulin Ratio 1.1 08/23/23 16:39: VBG pH 7.43 H, VBG pCO2 37.2, VBG pO2 148.2 H, VBG HCO3 24.1, VBG Total CO2 25.3, VBG O2 Saturation 99.0 H, VBG Base Excess -0.2 08/23/23 19:47: Troponin I < 0.01 08/23/23 22:40: Troponin I < 0.01 08/24/23 05:36: POC Glucose 159 H 08/24/23 06:10: Sodium 134 L, Potassium 4.2, Chloride 100, Carbon Dioxide 27, Anion Gap 11.2, BUN 49 H, Creatinine 1.30 H, Estimated Creat Clear 33, Estimated GFR 40 L, Est GFR ( Amer) 48 L, Glucose 143 H, Calcium 8.7, Magnesium 2.5 H, Total Bilirubin 0.6, AST 29, ALT 22, Alkaline Phosphatase 107, NT-Pro-B Natriuret Pep 452 H, Total Protein 6.7, Albumin 3.5 D, Globulin 3.2, Albumin/Globulin Ratio 1.1 08/24/23 08:36: POC Glucose 161 H 08/24/23 11:13: POC Glucose 158 H I & O for Last 24 hours: Intake & Output 08/21/23 08/22/23 08/23/23 08/24/23 23:59 23:59 23:59 23:59 Intake Total 400 / 400 200 / 200 Output Total 400 / 400 600 / 600 Balance 0 / 0 -400 / -400 Weight 115.269 kg 119 kg Constitutional Constitutional: no acute distress *Routine HEENT Exam Head: Present normocephalic Eye: Present EOMI and PERRL ENT: Present mucous membranes moist *Routine Neck Exam Neck: Present supple; Absent lymphadenopathy *Routine Respiratory Exam Respiratory: Present CTA bilaterally *Routine Cardiovascular Exam Cardiovascular: Present RRR *Routine Abdominal Exam Abdominal: Present soft and normoactive bowel sounds; Absent tenderness *Routine Extremities Exam Extremities: Present edema; Absent cyanosis or clubbing *Routine Skin Exam Skin: Present warm; Absent rash *Routine Neurological Exam Neurological: Present alert and oriented X3 Assessment and Plan *Assessment and plan (1) CHF exacerbation: Status: Acute Qualifiers: Heart failure type: combined systolic and diastolic Qualified Code(s): I50.43 - Acute on chronic combined systolic (congestive) and diastolic (congestive) heart failure Category: Medical Code(s): I50.9 - Heart failure, unspecified (2) Diabetes mellitus: Problem Comment: type 2 non insulin dep Status: Chronic Qualifiers: Diabetes mellitus type: type 2 Diabetes mellitus complication status: with hyperglycemia 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0-44.9, adult: Status: Acute Category: Medical Code(s): E66.01 - Morbid (severe) obesity due to excess calories; Z68.41 - Body mass index [BMI] 40.0-44.9, adult (6) Physical deconditioning: Status: Acute Category: Medical Code(s): R53.81 - Other malaise Plan This is a 73-year-old female with PMHx of hypertension, hyperlipidemia, aortic stenosis, mitral valve regurgitation, CAD status post CABG, A-fib on Eliquis, CHF on 2.5 L nasal cannula, diabetes, COPD on nightly BiPAP, obese amongst many other things. Patient's family states that she has been on a decline for the past 2 days. on arrival, patient has stable CKD. Regarding heart labs, troponin negative, but BNP elevated at 560, up from 300 just yesterday. Chest x-ray without acute cardiopulmonary airspace disease. CT abd negative. Discussed with ER. apparently most of her symptoms are related to fluid overload, with significant burden to patient physical activity. agreed for admission. Plan as follow: -CHF exacerbation: Admit patient for medical service. Plan for diuresis. Start on IV Bumex gtt Cardiology consult. Appreciate their recommendations -Diabetes insulin-dependent: With gastroparesis and neuropathy: Resume home regimen On gabapentin and hydrocodone Hypertension hyperlipidemia: Conditions are reviewed Resume losartan spironolactone bisoprolol Patient on statin and Eliquis and Plavix Morbid obesity with comorbidity: Suspected concomitant fluid overload Physical deconditioning, unable to care for herself: PT OT consult for eval and treatment employment case manager will be involved for assistance on the discharge planning Full code Continue on IV bumex gtt, dc 1-2 days and may need cardiac cath
[2023-08-24 16:36] LABS: POC Glucose,Bedside 80 (70-110)
--- NOTE | 2023-08-24 17:03 | HMH.PTEV ---
Physical Therapy Evaluation Rehab PT IP Evaluation Start: 08/24/23 10:08 Freq: ONCE Status: Active Protocol: Document 08/24/23 16:59 LAURO (Rec: 08/24/23 17:03 LAURO [id number]) Subjective/History History History Per H&P: This is a 73-year-old female with PMHx of hypertension, hyperlipidemia, aortic stenosis, mitral valve regurgitation, CAD status post CABG, A-fib on Eliquis, CHF on 2.5 L nasal cannula, diabetes, COPD on nightly BiPAP, obese amongst many other things. Patient's family states that she has been on a decline for the past 2 days. Was seen in the emergency department yesterday , 08/22 and worked up, workup was negative, so discharged home. also seen at cardiology office for f/u for CHF exacerbation and fluid overload. Today, patient had generalized weakness, largely unable to participate in home health/PT/OT, so patient was brought to the emergency department by family. Patient has no complaints at this time, is on same amount of oxygen. Denies chest pain, shortness of breath, nausea or vomiting, fevers or chills, dysuria, or any other concerns . Admitted for further management. Subjective Subjective Pt reports she does not know why she is in the hospital. PLOF per pt report: lives with son and son's who help with ADLs as needed. Using RW to get around but required help with ambulating. Pt stays on first floor of home. New diagnosis of cancer in past 12 No months? Rehab PT IP Eval Objective Appearance Patient Behavior Appropriate Patient Orientation Person,Birthday Speech Pattern Soft-Spoken Ambulation Patient Able to Ambulate No Transfers Bed Transfer Ability Moderate x 2 (50% assist) Rehab PT IP prob,goals,plan Problems Date of Evaluation: 08/24/23 PT IP Problems Bed Mobility,Transfers,Gait, Balance,Safety Rehab Potential Rehab Potential Good Equipment Needs Assistive Devices Rolling / Wheeled Walker Plan PT Intervention Plan Bed Mobility,Transfers,Gait, Balance,Self care,Safety, Therapeutic Exercise Other Intervention Plan 1-2 times PT Plan Frequency Daily Duration LOS Discharge Goals Bed Transfer Ability Moderate x 1 (50% assist) Sit to Stand Chair Transfer Ability Moderate x 2 (50% assist) Discharge Plan PT Discharge Plan Pt is not safe to return home d/t current functional mobility level. Pt is at high risk for falls, therefore, PT recommending placement in short-term rehabilitation. Pt would benefit from skilled physical therapy to address deficits and prevent further functional decline. Eval Complexity Eval Charge Codes 43585 - High Complexity PHYSICIAN CERTIFICATION: I certify the specified therapy services for Shilpa Armas are required, authorized, and reviewed every 30 days.
--- NOTE | 2023-08-24 17:06 | PC.NURSE ---
VS stable, patient remained on 3LNC. Patient alert and oriented to person, place, and situation. Lung sounds clear. Patient turned q2.
[2023-08-24 21:31] LABS: POC Glucose,Bedside 101 (70-110)
[2023-08-24] MEDS: BUSPIRONE HCL 5 MG TABLET PO (21:48)
[2023-08-24] MEDS: BISOPROLOL 5MG TABLET 5 MG PO (21:48)
[2023-08-24] MEDS: ATORVASTATIN 40MG TABLET 40 MG PO (21:48)
[2023-08-24] MEDS: PANTOPRAZOLE 40MG TABLET 40 MG PO (21:48)
[2023-08-25] VITALS (7 sets, daily range): BP systolic 102–124; BP diastolic 48–85; PULSE 56–78; RESP 20–23; TEMP 36.6–37.2; O2SAT 92–98; BMI 42.8
[2023-08-25 05:05] LABS: POC Glucose,Bedside 94 (70-110)
[2023-08-25] MEDS: BUMETANIDE 10 MG in 0.9 % SODIUM CHLORIDE 60 ML 5 MG IV ×2 (05:36→08:05)
[2023-08-25 07:28] LABS: Chloride 99 mmol/L (98-107); Potassium 4.3 mmoL/L (3.5-5.1); Sodium 132 mmol/L (136-145)
[2023-08-25 07:31] LABS: Blood Urea Nitrogen 54 mg/dl (7-17); Creatinine Clearance Estimated 21 mL/min (50-200); Estimated Glomerular Filt Rate 24 ml/min (>60); GFR (African American) 29 ML/MIN (>60)
[2023-08-25 07:32] LABS: Anion Gap 9.3 mEq/L (5-15); Calcium 8.9 mg/dl (8.4-10.2); Carbon Dioxide 28 mmol/L (22.0-30.0); Glucose 89 mg/dl (74-100)
[2023-08-25] MEDS: humaLOG MIX 75/25 3ML FLEXPEN 60 UNIT SQ ×2 (09:15→20:36)
[2023-08-25] MEDS: INSULIN DETEMIR 100 UNIT/ML 3ML FLEXPEN 60 UNIT SQ ×2 (09:16→20:38)
[2023-08-25] MEDS: GABAPENTIN 800MG TABLET 800 MG PO ×3 (09:17→20:33)
[2023-08-25] MEDS: METOCLOPRAMIDE 5MG TABLET 5 MG PO (09:17)
[2023-08-25] MEDS: SPIRONOLACTONE 25MG TABLET 50 MG PO (09:17)
[2023-08-25] MEDS: IRBESARTAN 75MG TABLET 75 MG PO (09:17)
[2023-08-25] MEDS: CITALOPRAM 40MG TABLET 40 MG PO (09:17)
[2023-08-25] MEDS: APIXABAN 5MG TABLET 5 MG PO ×2 (09:18→20:32)
[2023-08-25] MEDS: CLOPIDOGREL 75MG TAB 75 MG PO (09:18)
--- NOTE | 2023-08-25 09:18 | SW/DCPLANNER ---
Addendum entered by Maria Elena Coles 08/28/23 10:39: Marilou w/ [facility] stated that services will begin tomorrow for this patient. Addendum entered by Maria Elena Coles 08/25/23 10:42: Patient/family prefer to use [facility]. Original Note: I spoke w/ this patient regarding plans once medically stable for discharge. PT/OT evaluated patient and recommended SNF level of care. Patient stated that she resides at home w/ her son and daughter in law and prefers to return home at time of discharge. Patient is NOT interested in placement at this time but is agreeable for me to call and discuss discharge plans with her son. I called and spoke w/ patient's son: he is agreeable for patient to return home w/ him, someone will be w/ patient 13/02 and they are agreeable to home health services. I will continue to follow up w/ patient and family until medically stable for discharge. Discharge date is unknown at this time.
[2023-08-25] MEDS: POLYETHYLENE GLYCOL 3350 17 GM PACKET PO (09:22)
[2023-08-25] MEDS: LEVOTHYROXINE 50MCG (0.05MG) TAB 50 MCG PO (09:27)
[2023-08-25] MEDS: ACETAMINOPHEN 325MG TAB 650 MG PO (09:37)
--- NOTE | 2023-08-25 09:42 | EXP.CARD.PN ---
Subjective Subjective Date: 08/25/23 Time: 09:42 Principal diagnosis: CHF, FTT Interval history: 73 yo WF in bed in NAD. Only complaint of pain on backside due to lieing in bed. Exam Data for Last 24 hours Vital signs and Labs for Last 24 Hours: Temp Pulse Resp BP Pulse Ox O2 Del Method O2 Flow Rate 97.9 F 78 22 102/50 L 94 L Nasal Cannula 2.5 08/25/23 08:00 08/25/23 08:00 08/25/23 08:00 08/25/23 08:00 08/25/23 08:00 08/25/23 08:00 08/25/23 06:17 Laboratory Results - last 24 hr 08/24/23 06:10: NT-Pro-B Natriuret Pep 452 H 08/24/23 11:13: POC Glucose 158 H 08/24/23 16:24: POC Glucose 80 08/24/23 20:13: POC Glucose 101 08/25/23 04:58: POC Glucose 94 08/25/23 06:37: Sodium 132 L, Potassium 4.3, Chloride 99, Carbon Dioxide 28, Anion Gap 9.3, BUN 54 H, Creatinine 2.00 H D, Estimated Creat Clear 21, Estimated GFR 24 L, Est GFR ( Amer) 29 L D, Glucose 89, Calcium 8.9 I & O for Last 24 hours: Intake & Output 08/22/23 08/23/23 08/24/23 08/25/23 11:59 11:59 11:59 11:59 Intake Total 400 / 400 982.834 / 982.834 Output Total 400 / 1000 1475 / 1475 Balance 0 / -600 -492.166 / -492.166 Weight 262 lb 9.6 oz 257 lb 3.2 oz *Routine Respiratory Exam Respiratory: Present decreased breath sounds *Routine Cardiovascular Exam Cardiovascular: Present RRR Progress Note: A&P Assessment and plan (1) CHF exacerbation: Status: Acute (2) Diabetes mellitus: Problem details: type 2 non insulin dep Status: Chronic (3) Hypertension: Status: Chronic (4) Hyperlipidemia: Status: Chronic (5) Morbid obesity with BMI of 40.0-44.9, adult: Status: Acute (6) Physical deconditioning: Status: Acute Assessment and Plan Assessment and Plan for All Diagnoses:: 1. Biventricular congestive heart failure -On Bumex drip with net negative output of only 500 ml overnight -Continue Aldactone and Trulicity -Continue ARB and beta-pedro therapy 2. Moderate to severe pulmonary hypertension which is exacerbated by biventricular CHF 3. Morbid obesity 4. CAD with recent LHC showing patent bypass grafts -Continue Plavix 5. History of atrial fibrillation -Continue Eliquis therapy 6. Hyperlipidemia -Continue statin therapy 7. Chronic anemia with hemoglobin around 9 8. CKD, stage IIIb -Baseline creatinine around 1.2 and GFR around 44 -08/25 BUN 54 with Cr of 2.0 9. Hyponatremia with sodium 132 In light of minimal urine output and increase in renal function, will discontinue Bumex drip. Borderline low blood pressure which may be the culprit of the patient's malaise and fatigue, therefore we will decrease bisoprolol to 2.5 mg daily and irbesartan to 37.5 mg daily. Resume Bumex 1 mg twice daily which is his home dose Discontinue spironolactone Repeat BMP in a.m. and if renal function improving back to baseline then patient could be discharged home.
[2023-08-25 11:31] LABS: POC Glucose,Bedside 146 (70-110)
[2023-08-25] MEDS: BUMETANIDE 1 MG TABLET PO (17:17)
--- NOTE | 2023-08-25 17:19 | P.PN_ITS ---
Subjective *Date: 08/25/23 *Time: 17:19 Interval history: patient was seen and evaluated at the bedside. She feels better, SOB is better, No reported acute events overnight, denies chest pain, nausea, vomiting, abdominal pain. Exam Data for Last 24 hours Vital signs and Labs for Last 24 Hours: Temp Pulse Resp BP Pulse Ox O2 Del Method O2 Flow Rate 98.3 F 70 20 104/50 L 97 Nasal Cannula 2.5 08/25/23 12:00 08/25/23 16:00 08/25/23 12:00 08/25/23 12:08/25/23 12:00 08/25/23 12:00 08/25/23 06:17 Laboratory Results - last 24 hr 08/24/23 20:13: POC Glucose 101 08/25/23 04:58: POC Glucose 94 08/25/23 06:37: Sodium 132 L, Potassium 4.3, Chloride 99, Carbon Dioxide 28, Anion Gap 9.3, BUN 54 H, Creatinine 2.00 H D, Estimated Creat Clear 21, Estimated GFR 24 L, Est GFR ( Amer) 29 L D, Glucose 89, Calcium 8.9 08/25/23 11:13: POC Glucose 146 H I & O for Last 24 hours: Intake & Output 08/22/23 08/23/23 08/24/23 08/25/23 23:59 23:59 23:59 23:59 Intake Total 400 / 400 462 / 462 880.834 / 880.834 Output Total 400 / 400 1200 / 1200 275 / 275 Balance 0 / 0 -738 / -738 605.834 / 605.834 Weight 115.269 kg 119 kg 116.664 kg Constitutional Constitutional: no acute distress *Routine HEENT Exam Head: Present normocephalic Eye: Present EOMI and PERRL ENT: Present mucous membranes moist *Routine Neck Exam Neck: Present supple; Absent lymphadenopathy *Routine Respiratory Exam Respiratory: Present CTA bilaterally *Routine Cardiovascular Exam Cardiovascular: Present RRR *Routine Abdominal Exam Abdominal: Present soft and normoactive bowel sounds; Absent tenderness *Routine Extremities Exam Extremities: Present edema; Absent cyanosis or clubbing *Routine Skin Exam Skin: Present warm; Absent rash *Routine Neurological Exam Neurological: Present alert and oriented X3 Assessment and Plan *Assessment and plan (1) CHF exacerbation: Status: Acute Qualifiers: Heart failure type: combined systolic and diastolic Qualified Code(s): I50.43 - Acute on chronic combined systolic (congestive) and diastolic (congestive) heart failure Category: Medical Code(s): I50.9 - Heart failure, unspecified (2) Diabetes mellitus: Problem Comment: type 2 non insulin dep Status: Chronic Qualifiers: Diabetes mellitus type: type 2 Diabetes mellitus complication status: with hyperglycemia Diabetes mellitus moth exterminator insulin use: with moth exterminator use Qualified Code(s): E11.65 - Type 2 diabetes mellitus with hyperglycemia Category: Medical Code(s): E11.9 - Type 2 diabetes mellitus without complications (3) Hypertension: Status: Chronic Qualifiers: Hypertension type: essential hypertension Qualified Code(s): I10 - Essential (primary) hypertension Category: Medical Code(s): I10 - Essential (primary) hypertension (4) Hyperlipidemia: Status: Chronic Qualifiers: Hyperlipidemia type: unspecified Qualified Code(s): E78.5 - Hyperlipidemia, unspecified Category: Medical Code(s): E78.5 - Hyperlipidemia, unspecified (5) Morbid obesity with BMI of 40.0-44.9, adult: Status: Acute Category: Medical Code(s): E66.01 - Morbid (severe) obesity due to excess calories; Z68.41 - Body mass i ndex [BMI] 40.0-44.9, adult (6) Physical deconditioning: Status: Acute Category: Medical Code(s): R53.81 - Other malaise Plan This is a 73-year-old female with PMHx of hypertension, hyperlipidemia, aortic stenosis, mitral valve regurgitation, CAD status post CABG, A-fib on Eliquis, CHF on 2.5 L nasal cannula, diabetes, COPD on nightly BiPAP, obese amongst many other things. Patient's family states that she has been on a decline for the past 2 days. on arrival, patient has stable CKD. Regarding heart labs, troponin negative, but BNP elevated at 560, up from 300 just yesterday. Chest x-ray without acute cardiopulmonary airspace disease. CT abd negative. Discussed with ER. apparently most of her symptoms are related to fluid overload, with significant burden to patient physical activity. agreed for admission. Plan as follow: -CHF exacerbation: Plan for diuresis. , switch to PO Bumex per cardiology Cardiology consult - following -Diabetes insulin-dependent: With gastroparesis and neuropathy: Resume home regimen On gabapentin and hydrocodone Hypertension hyperlipidemia: Conditions are reviewed Resume losartan spironolactone bisoprolol Patient on statin and Eliquis and Plavix Morbid obesity with comorbidity: Suspected concomitant fluid overload Physical deconditioning, unable to care for herself: PT OT consult for eval and treatment auto fleet manager will be involved for assistance on the discharge planning Full code dc 1-2 days, may need cardiac cath
--- NOTE | 2023-08-25 18:32 | PC.NURSE ---
PAtient a&ox2. Patient had c/o headache today that was relieved with tylenol. Patient has no other c/o discomfort. Patient switched from IV bumex drip to po bumex twice a day.
[2023-08-25 20:09] LABS: POC Glucose,Bedside 236 (70-110)
[2023-08-25] MEDS: ATORVASTATIN 40MG TABLET 40 MG PO (20:32)
[2023-08-25] MEDS: BISOPROLOL 5MG TABLET 2.5 MG PO (20:32)
[2023-08-25] MEDS: PANTOPRAZOLE 40MG TABLET 40 MG PO (20:33)
[2023-08-25] MEDS: BUSPIRONE HCL 5 MG TABLET PO (20:33)
--- NOTE | 2023-08-25 23:01 | PC.NURSE ---
ROUNDED ON PT. GAVE WATER. HELPED WITH BATH
[2023-08-26] VITALS (10 sets, daily range): BP systolic 94–117; BP diastolic 48–65; PULSE 60–92; RESP 17–19; TEMP 36.8–38.2; O2SAT 91–97; BMI 43.8
[2023-08-26 02:23] LABS: POC Glucose,Bedside 115 (70-110)
[2023-08-26] MEDS: LEVOTHYROXINE 50MCG (0.05MG) TAB 50 MCG PO (06:18)
[2023-08-26] MEDS: FLUTICASONE/SALMETEROL 250/50MCG DISKUS 1 PUFF IH (06:20)
[2023-08-26 06:29] LABS: POC Glucose,Bedside 74 (70-110)
[2023-08-26 07:19] LABS: Chloride 98 mmol/L (98-107)
[2023-08-26 07:20] LABS: Potassium 4.7 mmoL/L (3.5-5.1); Sodium 133 mmol/L (136-145)
[2023-08-26 07:22] LABS: Blood Urea Nitrogen 70 mg/dl (7-17); Creatinine Clearance Estimated 24 mL/min (50-200); Estimated Glomerular Filt Rate 28 ml/min (>60); GFR (African American) 33 ML/MIN (>60)
[2023-08-26 07:23] LABS: Anion Gap 8.7 mEq/L (5-15); Calcium 8.8 mg/dl (8.4-10.2); Carbon Dioxide 31 mmol/L (22.0-30.0); Glucose 82 mg/dl (74-100)
[2023-08-26] MEDS: INSULIN DETEMIR 100 UNIT/ML 3ML FLEXPEN 60 UNIT SQ ×2 (09:44→20:17)
[2023-08-26] MEDS: humaLOG MIX 75/25 3ML FLEXPEN 60 UNIT SQ ×2 (09:44→20:16)
[2023-08-26] MEDS: POLYETHYLENE GLYCOL 3350 17 GM PACKET PO (09:45)
[2023-08-26] MEDS: IRBESARTAN 75MG TABLET 37.5 MG PO (09:46)
[2023-08-26] MEDS: CITALOPRAM 40MG TABLET 40 MG PO (09:46)
[2023-08-26] MEDS: METOCLOPRAMIDE 5MG TABLET 5 MG PO (09:46)
[2023-08-26] MEDS: CLOPIDOGREL 75MG TAB 75 MG PO (09:46)
[2023-08-26] MEDS: APIXABAN 5MG TABLET 5 MG PO ×2 (09:46→20:18)
[2023-08-26] MEDS: GABAPENTIN 800MG TABLET 800 MG PO ×3 (09:47→20:18)
[2023-08-26] MEDS: BUMETANIDE 1 MG TABLET PO ×2 (09:48→16:39)
[2023-08-26 12:17] LABS: POC Glucose,Bedside 95 (70-110)
--- NOTE | 2023-08-26 14:23 | PC.NURSE ---
pt got up to chair with max assist of 4
[2023-08-26 15:24] LABS: POC Glucose,Bedside 142 (70-110)
--- NOTE | 2023-08-26 18:31 | PC.NURSE ---
Patient a&ox2 and vss. patient refused to get up to chair and after talking to patient she got to chair. Patient continues to tell staff she can't and takes coaxing to even hold water cup.
[2023-08-26] MEDS: humaLOG 100 UNITS/ML 3ML VIAL (SSI) SQ (20:17)
[2023-08-26] MEDS: PANTOPRAZOLE 40MG TABLET 40 MG PO (20:18)
[2023-08-26] MEDS: ATORVASTATIN 40MG TABLET 40 MG PO (20:18)
[2023-08-26] MEDS: BUSPIRONE HCL 5 MG TABLET PO (20:18)
[2023-08-26] MEDS: SODIUM CHLORIDE 0.9% 10ML FLUSH SYRINGE 10 ML IV (20:18)
[2023-08-26] MEDS: BISOPROLOL 5MG TABLET 2.5 MG PO (20:19)
[2023-08-26 20:29] LABS: POC Glucose,Bedside 192 (70-110)
[2023-08-27] VITALS: BP 117/57; PULSE 58; PULSE 60; RESP 18; TEMP 36.9; O2SAT 93
--- NOTE | 2023-08-27 03:40 | PC.NURSE ---
NO C/O PAIN OR DISCOMFORT. PATIENT RESTING WELL AT THIS TIME. TAKES NO INITIATIVE FOR HER OWN CARE. MAY BE DEPRESSED. REFUSED HS SNACK.
[2023-08-27 04:00] VITALS: BP 123/53; PULSE 126; PULSE 45; RESP 17; TEMP 37.3; O2SAT 91; BMI 42.9
--- NOTE | 2023-08-27 04:03 | PC.NURSE ---
hr has jumped to 126-130. possible junctional origin. etelvina toure truck service technician notified. 12 lead ordered. patient is sleeping. tiesha. R.T notified.
--- NOTE | 2023-08-27 04:13 | ECG_ITS ---
APPROVED REPORT Exam: Resting ECG HR:76 bpm ECG Measurements Heart Rate 76 AXES ND 171 P 31 QRSd 154 QRS 17 QT 403 T 20 QTc 434 Conclusion SINUS RHYTHM WITH FREQUENT SUPRAVENTRICULAR PREMATURE COMPLEXES RIGHT BUNDLE BRANCH BLOCK [120+ ms QRS DURATION, UPRIGHT V1, 40+ ms S IN I/aVL/V4/V5/V6] ABNORMAL ECG UNCONFIRMED REPORT Electronically signed by : Andrade Pack MD 08/27/2023 14:32:23
--- NOTE | 2023-08-27 04:42 | PC.NURSE ---
SHANNA Carrero NP NOTIFIED RE ARRHYTHMIA. 12 LEAD UNABLE TO CAPTURE FAST HR.
[2023-08-27 05:03] LABS: POC Glucose,Bedside 63 (70-110)
[2023-08-27] MEDS: LEVOTHYROXINE 50MCG (0.05MG) TAB 50 MCG PO (06:00)
[2023-08-27 06:10] LABS: POC Glucose,Bedside 75 (70-110)
[2023-08-27 06:25] VITALS: O2SAT 94
[2023-08-27] MEDS: FLUTICASONE/SALMETEROL 250/50MCG DISKUS 1 PUFF IH (06:52)
[2023-08-27 07:28] VITALS: BP 110/60; PULSE 88; RESP 18; TEMP 36.7; O2SAT 95
[2023-08-27 08:00] VITALS: PULSE 70
[2023-08-27] MEDS: CITALOPRAM 40MG TABLET 40 MG PO (10:17)
[2023-08-27] MEDS: IRBESARTAN 75MG TABLET 37.5 MG PO (10:17)
[2023-08-27] MEDS: CLOPIDOGREL 75MG TAB 75 MG PO (10:17)
[2023-08-27] MEDS: BUMETANIDE 1 MG TABLET PO (10:17)
[2023-08-27] MEDS: METOCLOPRAMIDE 5MG TABLET 5 MG PO (10:17)
[2023-08-27] MEDS: GABAPENTIN 800MG TABLET 800 MG PO ×2 (10:17→13:15)
[2023-08-27] MEDS: APIXABAN 5MG TABLET 5 MG PO (10:17)
[2023-08-27] MEDS: POLYETHYLENE GLYCOL 3350 17 GM PACKET PO (10:18)
[2023-08-27] MEDS: humaLOG MIX 75/25 3ML FLEXPEN 60 UNIT SQ (10:21)
[2023-08-27] MEDS: INSULIN DETEMIR 100 UNIT/ML 3ML FLEXPEN 60 UNIT SQ (10:21)
--- NOTE | 2023-08-27 10:52 | P.DS_ITS ---
General Admission date:: 08/23/23 Discharge date: 08/27/23 HPI HPI HPI: This is a 73-year-old female with PMHx of hypertension, hyperlipidemia, aortic stenosis, mitral valve regurgitation, CAD status post CABG, A-fib on Eliquis, CHF on 2.5 L nasal cannula, diabetes, COPD on nightly BiPAP, obese amongst many other things. Patient's family states that she has been on a decline for the past 2 days. Was seen in the emergency department yesterday, 08/22 and worked up, workup was negative, so discharged home. also seen at cardiology office for f/u for CHF exacerbation and fluid overload. Today, patient had generalized weakness, largely unable to participate in home health/PT/OT, so patient was brought to the emergency department by family. Patient has no complaints at this time, is on same amount of oxygen. Denies chest pain, shortness of breath, nausea or vomiting, fevers or chills, dysuria, or any other concerns. Admitted for further management. Hospital Course Hospital Course Hospital Course: This is a 73-year-old female with PMHx of hypertension, hyperlipidemia, aortic stenosis, mitral valve regurgitation, CAD status post CABG, A-fib on Eliquis, CHF on 2.5 L nasal cannula, diabetes, COPD on nightly BiPAP, obese amongst many other things. Patient's family states that she has been on a decline for the past 2 days. on arrival, patient has stable CKD. Regarding heart labs, troponin negative, but BNP elevated at 560, up from 300 just yesterday. Chest x-ray without acute cardiopulmonary airspace disease. CT abd negative. Discussed with ER. apparently most of her symptoms are related to fluid overload, with significant burden to patient physical activity. agreed for admission. Plan as follow: -CHF exacerbation: - improved Plan for diuresis. , switch to PO Bumex per cardiology ok to dc per cardiology -Diabetes insulin-dependent: stable With gastroparesis and neuropathy: Resume home regimen On gabapentin and hydrocodone Hypertension hyperlipidemia: Conditions are reviewed Resume losartan spironolactone bisoprolol Patient on statin and Eliquis and Plavix Morbid obesity with comorbidity: Suspected concomitant fluid overload Physical deconditioning, unable to care for herself: PT OT consult for eval and treatment banking management consulting manager will be involved for assistance on the discharge planning Full code stable for discharge per cardiology, patient refused SNF/Rehab placement, family was informed and they agree with patient and wants to take her home Exam Data for Last 24 hours Vital signs and Labs for Last 24 Hours: Temp Pulse Resp BP Pulse Ox O2 Del Method O2 Flow Rate 98.0 F 70 18 110/60 95 Nasal Cannula 3 08/27/23 07:28 08/27/23 08:00 08/27/23 07:28 08/27/23 07:28 08/27/23 07:28 08/27/23 07:28 08/27/23 07:28 Laboratory Results - last 24 hr 08/26/23 12:11: POC Glucose 95 08/26/23 15:16: POC Glucose 142 H 08/26/23 20:06: POC Glucose 192 H 08/27/23 04:55: POC Glucose 63 L 08/27/23 05:51: POC Glucose 75 I & O for Last 24 hours: Intake & Output 08/24/23 08/25/23 08/26/23 08/27/23 23:59 23:59 23:59 23:59 Intake Total 462 / 462 1240.834 / 8203.116 3205 / 1430 240 / 240 Output Total 1200 / 1200 1075 / 1275 900 / 1200 300 / 300 Balance -738 / -738 165.834 / 205.834 530 / 230 -60 / -60 Weight 119 kg 116.664 kg 119.34 kg 116.8 kg Constitutional Constitutional: no acute distress *Routine HEENT Exam Head: Present normocephalic Eye: Present EOMI and PERRL ENT: Present mucous membranes moist *Routine Neck Exam Neck: Present supple; Absent lymphadenopathy *Routine Respiratory Exam Respiratory: Present CTA bilaterally *Routine Cardiovascular Exam Cardiovascular: Present RRR *Routine Abdominal Exam Abdominal: Present soft and normoactive bowel sounds; Absent tenderness *Routine Extremities Exam Extremities: Absent cyanosis, clubbing or edema *Routine Skin Exam Skin: Present warm; Absent rash *Routine Neurological Exam Neurological: Present alert and oriented X3 Results Data Completed and Pending Labs on day of discharge: Labs from last 24 hours 08/27/23 08/27/23 08/26/23 05:51 04:55 20:06 POC Glucose 75 63 L 192 H 08/26/23 08/26/23 15:16 12:11 POC Glucose 142 H 95 DS: Diagnosis Discharge Diagnosis (1) CHF exacerbation: Status: Acute Code(s): I50.9 - Heart failure, unspecified Qualifiers: Heart failure type: combined systolic and diastolic Qualified Code(s): I50.43 - Acute on chronic combined systolic (congestive) and diastolic (congestive) heart failure (2) Diabetes mellitus: Status: Chronic Code(s): E11.9 - Type 2 diabetes mellitus without complications Qualifiers: Diabetes mellitus type: type 2 Diabetes mellitus complication status: with hyperglycemia Diabetes mellitus continuous churn buttermaker insulin use: with continuous churn buttermaker use Qualified Code(s): E11.65 - Type 2 diabetes mellitus with hyperglycemia Problem details: type 2 non insulin dep (3) Hypertension: Status: Chronic Code(s): I10 - Essential (primary) hypertension Qualifiers: Hypertension type: essential hypertension Qualified Code(s): I10 - Essential (primary) hypertension (4) Hyperlipidemia: Status: Chronic Code(s): E78.5 - Hyperlipidemia, unspecified Qualifiers: Hyperlipidemia type: unspecified Qualified Code(s): E78.5 - Hyperlipidemia, unspecified (5) Morbid obesity with BMI of 40.0-44.9, adult: Status: Acute Code(s): E66.01 - Morbid (severe) obesity due to excess calories; Z68.41 - Body mass index [BMI] 40.0-44.9, adult (6) Physical deconditioning: Status: Acute Code(s): R53.81 - Other malaise Meds Home Medications and Allergies Home Medications Medication Instructions Recorded Confirmed Type cholecalciferol (vitamin D3) 25 1,000 unit PO BID Diet supplement 08/11/20 08/23/23 History mcg (1,000 unit) capsule ascorbate calcium (vitamin C) 500 500 mg PO DAILY SUPPLEMTN 11/30/20 08/23/23 History mg tablet albuterol sulfate 90 mcg/actuation 2 inh inhalation Q6H PRN Shortness 08/01/22 08/23/23 History aerosol inhaler Of Breath Or Wheezing zinc acetate 50 mg (zinc) capsule 50 mg PO DAILY 10/06/22 08/23/23 History pen needle, diabetic 29 gauge x #100 ea 01/17/23 08/23/23 Rx 1/2 (Ultra-Thin II Insulin Pen [place]) pen needle, diabetic 31 gauge x #1,200 ea 02/06/23 08/23/23 Rx 5/16 (BD Ultra-Fine Short Pen Needle) icosapent ethyl 1 gram capsule 2 g PO BID #360 caps 06/29/23 08/23/23 Rx (Vascepa) insulin detemir U-100 100 unit/mL 60 unit SQ BID 07/04/23 08/23/23 History (3 mL) subcutaneous pen levothyroxine 50 mcg tablet 50 mcg PO DAILY 07/04/23 08/23/23 History metoclopramide HCl 5 mg tablet 5 mg PO BID 07/04/23 08/24/23 History omeprazole 20 mg capsule,delayed 20 mg PO DAILY 07/04/23 08/23/23 History release baclofen 10 mg tablet 10 mg PO BIDP PRN muscle spasms 07/05/23 08/24/23 History buspirone 5 mg tablet 5 mg PO HS 07/05/23 08/23/23 History citalopram 40 mg tablet 40 mg PO DAILY 07/05/23 08/23/23 History clopidogrel 75 mg tablet 75 mg PO DAILY 07/05/23 08/23/23 History cranberry 1,000 mg capsule 1,500 mg PO DAILY 07/05/23 08/23/23 History dulaglutide 0.75 mg/0.5 mL 0.75 mg SQ WEEKLY 07/05/23 08/23/23 History subcutaneous pen injector (Trulicity) ergocalciferol (vitamin D2) 1,250 50,000 unit PO WEEKLY 07/05/23 08/23/23 History mcg (50,000 unit) capsule (Vitamin D2) fluticasone furoate 100 1 inh inhalation DAILY 07/05/23 08/23/23 History mcg-vilanterol 25 mcg/dose inhalation powder (Breo Ellipta) polyethylene glycol 3350 17 17 g PO DAILY #238 grams 07/06/23 08/23/23 Rx gram/dose oral powder (Laxative PEG 3350) apixaban 5 mg tablet (Eliquis) 5 mg PO BID 30 days #60 tabs 07/25/23 08/23/23 Rx atorvastatin 40 mg tablet 40 mg PO HS 30 days #30 tabs 07/25/23 08/23/23 Rx bumetanide 1 mg tablet 1 mg PO 0800,1400 30 days #60 tabs 07/25/23 08/23/23 Rx insulin aspar prot-insulin aspart 60 unit (0.6 mL) SQ BID #15 mL 07/26/23 08/23/23 Rx 100 unit/mL (70-30) subcutaneous pen (Novolog Mix 70-30FlexPen U-100) gabapentin 800 mg tablet 800 mg PO TID #90 tabs 08/03/23 08/23/23 Rx meclizine 25 mg tablet 25 mg PO BID PRN dizziness #60 tabs 08/03/23 08/23/23 Rx hydrocodone 5 mg-acetaminophen 325 1 tab PO QID PRN pain #120 tabs 08/04/23 08/23/23 Rx mg tablet bisoprolol fumarate 5 mg tablet 2.5 mg PO HS 30 days #15 tabs 08/27/23 Rx irbesartan 75 mg tablet 37.5 mg PO DAILY 30 days #15 tabs 08/27/23 Rx New Prescriptions to Start Prescriptions: bisoprolol fumarate Demetria Mendoza irbesartan Demetria Mendoza Allergies Allergy/AdvReac Type Severity Reaction Status Date / Time Iodinated Contrast Media Allergy Intermediate Hives Verified 08/23/23 14:44 [Iodinated Contrast Media - IV Dye] celecoxib [From CELEBREX] Allergy Unknown SWELLING Verified 08/23/23 14:44 ibuprofen [IBUPROFEN] Allergy Unknown S-BLISTERING Verified 08/23/23 14:44 WELTS meloxicam [MELOXICAM] Allergy Unknown S-BLISTERING Verified 08/23/23 14:44 WELTS Penicillins [PENICILLINS] Allergy Unknown I-HIVES Verified 08/23/23 14:44 rofecoxib [From VIOXX] Allergy Unknown I-HIVES Verified 08/23/23 14:44 Discharge Plan Disposition Patient Disposition: Home Health Service Condition: Good Discharge Order Discharge Orders: Discharge Order (Routine); Ordered 08/27/23 Ordered By: Demetria Mendoza Follow up Plan Follow up with: Hilary Bagley PA [Primary Care Provider] - Enter time for follow up (please call for follow up appointment) Jacob Martínez MD [Staff Physician] - 2 weeks Prescriptions/Medication Reconciliation: New bisoprolol fumarate 5 mg Tablet 2.5 mg PO HS 30 Days Qty: 15 0RF irbesartan 75 mg Tablet 37.5 mg PO DAILY 30 Days Qty: 15 0RF Continued ascorbate calcium (vitamin C) 500 mg tablet 500 mg PO DAILY zinc acetate 50 mg (zinc) capsule 50 mg PO DAILY gabapentin 800 mg tablet 800 mg PO TID Qty: 90 2RF meclizine 25 mg tablet 25 mg PO BID PRN (Reason: dizziness) Qty: 60 0RF Rx Instructions: TAKE 1 TABLET 2 TIMES EACH DAY FOR NAUSEA AND VOMITING hydrocodone-acetaminophen 5-325 mg tablet 1 tab PO QID PRN (Reason: pain) Qty: 120 0RF (DME) pen needle, diabetic [Ultra-Thin II Ins Pen [place]] 29 gauge x 1/2 needle See Rx Instructions .Route Qty: 100 0RF Rx Instructions: As directed (DME) pen needle, diabetic [BD Ultra-Fine Short Pen Needle] 31 gauge x 5/16 needle See Rx Instructions .Route Qty: 1200 0RF Rx Instructions: Use to inject insulin 5 times a day icosapent ethyl [Vascepa] 1 gram capsule 2 g PO BID Qty: 360 3RF Eliquis 5 mg tablet 5 mg PO BID 30 Days Qty: 60 0RF atorvastatin 40 mg tablet 40 mg PO HS 30 Days Qty: 30 0RF bumetanide 1 mg tablet 1 mg PO 0800,1400 30 Days Qty: 60 0RF insulin asp prt-insulin aspart [Novolog Mix 70-30FlexPen U-100] 100 unit/mL (70-30) insulin pen 60 unit SQ BID Qty: 15 5RF cholecalciferol (vitamin D3) 1,000 UNIT capsule 1,000 unit PO BID metoclopramide HCl 5 mg tablet 5 mg PO BID Rx Instructions: TAKE 1 TABLET 2 TIMES EACH DAY FOR STOMACH levothyroxine 50 mcg tablet 50 mcg PO DAILY Rx Instructions: TAKE 1 TABLET 1 TIME EACH DAY FOR THYROID omeprazole 20 mg capsule,delayed release(DR/EC) 20 mg PO DAILY Rx Instructions: TAKE 1 CAPSULE 1 TIME EACH DAY FOR REFLUX insulin detemir U-100 100 unit/mL (3 mL) insulin pen 60 unit SQ BID Rx Instructions: INJECT 96 UNITS UNDER THE SKIN 2 TIMES EACH DAY buspirone 5 mg tablet 5 mg PO HS Rx Instructions: TAKE 1 TABLET 1 TIME EACH DAY FOR ANXIETY citalopram 40 mg tablet 40 mg PO DAILY Rx Instructions: TAKE 1 TABLET 1 TIME EACH DAY FOR DEPRESSION clopidogrel 75 mg tablet 75 mg PO DAILY Rx Instructions: TAKE 1 TABLET 1 TIME EACH DAY FOR HEART DISEASE baclofen 10 mg tablet 10 mg PO BIDP PRN (Reason: muscle spasms) Rx Instructions: TAKE 1 TABLET 2 TIMES EACH DAY NEEDED FOR MUSCLE PAIN ergocalciferol (vitamin D2) [Vitamin D2] 1,250 mcg (50,000 unit) capsule 50,000 unit PO WEEKLY Rx Instructions: TAKE 1 CAPSULE 1 TIME EACH WEEK ON SUNDAYS fluticasone furoate-vilanterol [Breo Ellipta] 100-25 mcg/dose blister with device 1 inh inhalation DAILY Rx Instructions: INHALE 1 DOSE 1 TIME EACH DAY Trulicity 0.75 mg/0.5 mL pen injector 0.75 mg SQ WEEKLY Rx Instructions: INJECT THE CONTENTS OF 1 SYRINGE UNDER THE SKIN 1 TIME EACH WEEK ON SATURDAYS cranberry 1,000 mg Capsule 1,500 mg PO DAILY Rx Instructions: administer with meals polyethylene glycol 3350 [Laxative PEG 3350] 17 gram/dose powder 17 g PO DAILY Qty: 238 0RF albuterol sulfate 90 mcg/actuation HFA aerosol inhaler 2 inh INHALATION Q6H PRN (Reason: Shortness Of Breath Or Wheezing) Patient Comments: INHALE 2 TIMES 4 TIMES EACH DAY NEEDED FOR SHORTNESS OF BREATH OR WHEEZING Discontinued losartan 50 mg tablet 50 mg PO DAILY Qty: 90 1RF spironolactone [Aldactone] 50 mg tablet 50 mg PO BID Qty: 180 3RF bisoprolol fumarate 5 mg tablet 5 mg PO HS Qty: 30 11RF Problem Reconciliation Problems Reviewed?: Yes Patient Discharge Instructions ACTIVITY: Ambulate as tolerated DIET: advance to your usual diet Patient Instructions: DI for Failure to Thrive, DI for Muscle Weakness, DI for Heart Failure Exacerbations Providers Primary Care Provider: Hilary Bagley Admit Provider: Demetria Mendoza Attending Provider: Demetria Mendzoa
[2023-08-27 11:41] LABS: POC Glucose,Bedside 137 (70-110)
[2023-08-27 12:00] VITALS: PULSE 70
--- NOTE | 2023-08-27 14:59 | EXP.EVENT.NO ---
I called patient's family for updates. Informed them that physical therapy had evaluated patient and recommended discharge to SNF/rehab placement, however patient had declined. Patient's [id number] who lives with the patient mentioned they understand patient's wishes, they have been helping her at home as well. I informed them that patient is 2-3 person assist for activities of daily living and she will need assistance at home. They verbalized understanding and wishes to proceed with the discharge plan. Patient will be discharged in stable condition. Patient also agree with the discharge plan
--- NOTE | 2023-08-28 15:37 | SW/DCPLANNER ---
Follow up phone call w/ this patient's family. Patient is doing well at home and able to move around at this time. I did inform family that home health services will start tomorrow 08/29. Patient/family did not have any further needs/questions at this time.
== END 2023-08-27 15:55 | disposition home health service (06) | DRG 291 ==
LOC: ER 18:08 → 2ND 18:50
PROVIDERS: Nurse Practitioner Family; Physician Assistant; Admitting Provider Internal Medicine; Emergency Provider Emergency Medicine; PCP Physician Assistant; Visit Provider Internal Medicine
DX: I13.0 Hypertensive heart and chronic kidney disease with heart failure and stage 1 through stage 4 chronic kidney disease, or unspecified chronic kidney disease (principal); I50.43 Acute on chronic combined systolic (congestive) and diastolic (congestive) heart failure; I48.20 Chronic atrial fibrillation, unspecified; Z68.41 Body mass index [BMI] 40.0-44.9, adult; J96.10 Chronic respiratory failure, unspecified whether with hypoxia or hypercapnia; E87.1 Hypo-osmolality and hyponatremia; E11.65 Type 2 diabetes mellitus with hyperglycemia; E78.5 Hyperlipidemia, unspecified; E66.01 Morbid (severe) obesity due to excess calories; I27.20 Pulmonary hypertension, unspecified; I50.82 Biventricular heart failure; I25.10 Atherosclerotic heart disease of native coronary artery without angina pectoris; G89.29 Other chronic pain; G47.33 Obstructive sleep apnea (adult) (pediatric); Z87.891 Personal history of nicotine dependence; Z95.1 Presence of aortocoronary bypass graft; Z86.718 Personal history of other venous thrombosis and embolism; Z79.4 Long term (current) use of insulin; N18.32 Chronic kidney disease, stage 3b; D63.1 Anemia in chronic kidney disease; I08.0 Rheumatic disorders of both mitral and aortic valves; Z99.81 Dependence on supplemental oxygen
CPT/HCPCS: 36415; 70450; 71045; 74176; 80048; 80053; 81001; 82140; 82803; 82962; 83735; 83880; 84443; 84484; 85025; 87040; 87636; 93005; 94640; 97110; 97163; 97166; 97530; 99285

== ENCOUNTER 2023-09-01 18:03 | Inpatient (IN) | payer MEDICARE, MEDICAID, SELFPAY ==
[2023-09-01 18:43] VITALS: BP 130/54; PULSE 70; RESP 13; TEMP 37.1; O2SAT 98; BMI 41.5
[2023-09-01 19:01] VITALS: BP 99/38; PULSE 63; RESP 16; O2SAT 98
--- NOTE | 2023-09-01 19:19 | ED_ITS ---
Discharge Plan Disposition Patient Disposition: Admitted Clinical Impressions Clinical Impression: Bacteremia, Physical deconditioning Discharge ED Provider: Jason Lucas General Adult HPI General Chief complaint: Recheck/Abnormal Lab/Rx Stated complaint: sent by Dr. Sethi critical labs Time Seen by Provider: 09/01/23 19:02 Mode of Arrival: Wheelchair Source of Information: Relative Limitations: No Limitations Description of Symptoms (Recalled from ER Triage Doc. by RN): Pt. arrived to ED via wheelchair with son and [id number]. Dr. Sethi called pt. today and told her to come in due to abnormal lab work. Pts family states she was admitted last week for 5 days and at dc she was feeling better but for the last 3 days she has had decreased LOC and unable to assist them with ADLs. History of Present Illness HPI narrative: 73-year-old female with chronic debilitation, A-fib on Eliquis, hypertension, hyperlipidemia, diabetes with general weakness and abnormal labs. Patient was just admitted last week. Generalized weakness. Refused to go to alf, although family is losing ability to take care of patient at home. Positive blood cultures, patient was contacted and brought back to the emergency department. Patient denies fevers, chills, nausea, vomiting, but she has fallen a couple times since that is having new lumbar spine pain. Related Data Home Medications Medication Instructions Recorded Confirmed cholecalciferol (vitamin D3) 25 1,000 unit PO BID Diet supplement 08/11/20 09/01/23 mcg (1,000 unit) capsule ascorbate calcium (vitamin C) 500 500 mg PO DAILY SUPPLEMTN 11/30/20 09/01/23 mg tablet albuterol sulfate 90 mcg/actuation 2 inh inhalation Q6H PRN Shortness 08/01/22 09/01/23 aerosol inhaler Of Breath Or Wheezing zinc acetate 50 mg (zinc) capsule 50 mg PO DAILY 10/06/22 09/01/23 insulin detemir U-100 100 unit/mL 60 unit SQ BID 07/04/23 09/01/23 (3 mL) subcutaneous pen levothyroxine 50 mcg tablet 50 mcg PO DAILY 07/04/23 09/01/23 metoclopramide HCl 5 mg tablet 5 mg PO BID 07/04/23 09/01/23 omeprazole 20 mg capsule,delayed 20 mg PO DAILY 07/04/23 09/01/23 release baclofen 10 mg tablet 10 mg PO BIDP PRN muscle spasms 07/05/23 09/01/23 buspirone 5 mg tablet 5 mg PO HS 07/05/23 09/01/23 citalopram 40 mg tablet 40 mg PO DAILY 07/05/23 09/01/23 clopidogrel 75 mg tablet 75 mg PO DAILY 07/05/23 09/01/23 cranberry 1,000 mg capsule 1,500 mg PO DAILY 07/05/23 09/01/23 dulaglutide 0.75 mg/0.5 mL 0.75 mg SQ WEEKLY 07/05/23 09/01/23 subcutaneous pen injector (Trulicity) ergocalciferol (vitamin D2) 1,250 50,000 unit PO WEEKLY 07/05/23 09/01/23 mcg (50,000 unit) capsule (Vitamin D2) fluticasone furoate 100 1 inh inhalation DAILY 07/05/23 09/01/23 mcg-vilanterol 25 mcg/dose inhalation powder (Breo Ellipta) Previous Rx's Medication Instructions Recorded pen needle, diabetic 29 gauge x #100 ea 01/17/2307/25 (Ultra-Thin II Insulin Pen [place]) pen needle, diabetic 31 gauge x #1,200 ea 02/06/2312/06 (BD Ultra-Fine Short Pen Needle) icosapent ethyl 1 gram capsule 2 g PO BID #360 caps 06/29/23 (Vascepa) polyethylene glycol 3350 17 17 g PO DAILY #238 grams 07/06/23 gram/dose oral powder (Laxative PEG 3350) apixaban 5 mg tablet (Eliquis) 5 mg PO BID 30 days #60 tabs 07/25/23 atorvastatin 40 mg tablet 40 mg PO HS 30 days #30 tabs 07/25/23 bumetanide 1 mg tablet 1 mg PO 0800,1400 30 days #60 tabs 07/25/23 insulin aspar prot-insulin aspart 60 unit (0.6 mL) SQ BID #15 mL 07/26/23 100 unit/mL (70-30) subcutaneous pen (Novolog Mix 70-30FlexPen U-100) meclizine 25 mg tablet 25 mg PO BID PRN dizziness #60 tabs 08/03/23 bisoprolol fumarate 5 mg tablet 2.5 mg PO HS 30 days #15 tabs 08/27/23 irbesartan 75 mg tablet 37.5 mg PO DAILY 30 days #15 tabs 08/27/23 gabapentin 800 mg tablet 800 mg PO TID #90 tabs 09/01/23 hydrocodone 5 mg-acetaminophen 325 1 tab PO QID PRN pain #120 tabs 09/01/23 mg tablet Allergies Allergy/AdvReac Type Severity Reaction Status Date / Time Iodinated Contrast Media Allergy Intermediate Hives Verified 08/23/23 14:44 [Iodinated Contrast Media - IV Dye] celecoxib [From CELEBREX] Allergy Unknown SWELLING Verified 08/23/23 14:44 ibuprofen [IBUPROFEN] Allergy Unknown S-BLISTERING Verified 08/23/23 14:44 WELTS meloxicam [MELOXICAM] Allergy Unknown S-BLISTERING Verified 08/23/23 14:44 WELTS Penicillins [PENICILLINS] Allergy Unknown I-HIVES Verified 08/23/23 14:44 rofecoxib [From VIOXX] Allergy Unknown I-HIVES Verified 08/23/23 14:44 PFSH PFS Disclaimer: The information contained in this section may have been updated after the patient was seen, as this information can be updated by other users. Medical History Abnormal PFT Anxiety Aortic stenosis Atypical angina Bilateral swelling of feet CHF (congestive heart failure) Chronic hypoxemic respiratory failure Active follow-up with pulmonology Chronic pain Contrast media allergy COPD (chronic obstructive pulmonary disease) Active follow-up with pulmonology Coronary artery disease Depression Diabetes mellitus type 2 non insulin dep Diabetic gastroparesis associated with type 2 diabetes mellitus Diabetic neuropathy associated with type 2 diabetes mellitus Diarrhea Dyspnea Dyspnea on exertion Dyspnea on exertion GERD (gastroesophageal reflux disease) History of 2019 novel coronavirus disease (COVID-19) Hyperlipidemia Hypertension Hypothyroidism IDDM (insulin dependent diabetes mellitus) Lumbar disc disease Lumbar disc disease with radiculopathy Lumbar radiculopathy Lumbar radiculopathy, chronic Lumbar radiculopathy, chronic ERICKSON (obstructive sleep apnea) Proliferative diabetic retinopathy Pulmonary HTN Pulmonary hypertension Restrictive lung disease Restrictive lung disease Sciatica associated with disorder of lumbar spine Sleep disorder breathing Stopped smoking with greater than 30 pack year history Typical angina Vertigo Vitamin D deficiency Weakness Surgical History History of cataract surgery History of eye surgery History of heart valve replacement History of lumpectomy Hx of CABG Family History Other Cancer Diabetes Heart attack Hyperlipidemia Hypertension Stroke Thyroid disorder Social History Smoking Status: Never smoker second hand exposure: No alcohol intake: never substance use type: denies use current occupational status: unemployed Travel in the last 8 weeks: None household members: children housing: house current occupational exposures/hazards: No caffeine: Yes ROS Obtained: Yes All systems reviewed & no additional complaints except as documented Physical Exam General General appearance: alert, in no apparent distress and obese Head Head exam: atraumatic and normocephalic Eye Eye exam: Present normal appearance, PERRL and EOMI ENT ENT exam: Present mucous membranes moist Neck Neck exam: Present normal inspection, full ROM and trachea midline Respiratory Respiratory exam: Present normal lung sounds bilaterally; Absent respiratory distress, wheezes, stridor, accessory muscle use or prolonged expiratory phase Cardiovascular Cardiovascular exam: Present regular rate and irregular rhythm Abdominal Exam Abdominal exam: Present soft; Absent distention, tenderness, guarding, rebound or rigidity Extremities Exam Extremities exam: Present edema Neurological Exam Neurological exam: Present alert, oriented X3, CN II-XII intact and normal gait; Absent motor sensory deficit Skin Skin exam: Present warm and dry; Absent diaphoresis or erythema Medical Decision Making Medical Records Medical records reviewed: Yes I reviewed the patient's medical records. Sam Inquiry Pt receiving controlled substance: No Sam was queried for this patient: No Vital Signs: 09/01/23 18:43 09/01/23 19:01 09/01/23 22:18 Temperature 98.7 F 98.0 F Temperature Source Oral Pulse Rate 63 79 Pulse Rate [Right Brachial] 70 Respiratory Rate 13 16 17 Blood Pressure 99/38 L 135/57 L Blood Pressure [Right Arm] 130/54 L Blood Pressure Mean [Right Arm] 79 Blood Pressure Source Automatic Cuff Blood Pressure Source [Right Arm] Automatic Cuff Blood Pressure Position [Right Arm] Sitting 02 Sat by Pulse Oximetry 98 98 Oxygen Delivery Method Nasal Cannula Room Air Nasal Cannula Oxygen Flow Rate (LPM) 2 2 Lab Data Lab Results 09/01/23 18:18: WBC 10.1, RBC 3.90 L, Hgb 8.7 L, Hct 26.4 L, MCV 67.6 L, MCH 22.2 L, MCHC 32.8, RDW 19.8 H, Plt Count 357, MPV 7.8, Neut % (Auto) 72.4, Lymph % (Auto) 19.0, Grimes % (Auto) 6.2, Eos % (Auto) 1.9, Baso % (Auto) 0.5, Neut # (Auto) 7.3, Lymph # (Auto) 1.9, Grimes # (Auto) 0.6, Eos # (Auto) 0.2, Baso # (Auto) 0.1, Sodium 132 L, Potassium 4.4, Chloride 101, Carbon Dioxide 26, Anion Gap 9.4, BUN 82 H, Creatinine 1.10 H, Estimated Creat Clear 40, Estimated GFR 49 L, Est GFR ( Amer) 59, Glucose 142 H, Calcium 8.8, Total Bilirubin 0.4, AST 39 H, ALT 40, Alkaline Phosphatase 110, Total Protein 7.2, Albumin 3.6, Globulin 3.6 H, Albumin/Globulin Ratio 1.0 L 09/01/23 20:00: Urine Color Yellow, Urine Appearance Clear, Urine pH 5.5, Ur Specific Sulphur 1.010, Urine Protein Negative, Urine Glucose (UA) Negative, Urine Ketones Negative, Urine Blood Negative, Urine Nitrate Negative, Urine Bilirubin Negative, Urine Urobilinogen 0.2, Ur Leukocyte Esterase Negative, Urine RBC None, Urine WBC None, Ur Squamous Epith Cells Occasional, Urine Bacte pam None 09/01/23 18:18 09/01/23 18:18 Orders (Tests/Meds): ED MEDICATIONS Generic Name Dose Route Start Last Admin Trade Name Freq PRN Reason Stop Dose Admin Acetaminophen 650 mg 09/01/23 20:32 Acetaminophen 325mg Tab PO 10/01/23 20:31 Q4HP PRN Fever or Mild Pain (1-3) Sodium Chloride 1,000 mls @ 50 mls/hr 09/01/23 20:45 09/01/23 22:58 Sod Chlor 0.9% 1000ml Bag IV 10/01/23 20:44 50 mls/hr .Q20H BRYCE Administration Vancomycin HCl 2,000 mg/ 500 mls @ 166 mls/hr 09/01/23 23:30 09/01/23 23:59 Sodium Chloride IV 09/02/23 02:30 166 mls/hr ONCE ONE Administration Miscellaneous 1 each 09/01/23 22:15 09/01/23 23:17 Vancomycin Consult Request NOTAPPLIC 10/01/23 22:14 1 each CONSULT PHARMACY BRYCE Administration Morphine Sulfate 2 mg 09/01/23 20:32 09/01/23 23:25 Morphine 2mg/Ml Syringe IV 10/01/23 20:31 2 mg Q2HP PRN Administration Severe Pain (7-10) Ondansetron HCl 4 mg 09/01/23 20:32 Ondansetron 4mg/2ml Vial IV 10/01/23 20:31 Q8HP PRN Nausea Discontinued Medications Generic Name Dose Route Start Last Admin Trade Name Freq PRN Reason Stop Dose Admin Lactated Ringer's 1,000 mls @ 999 mls/hr 09/01/23 19:24 09/01/23 19:53 Lactated Ringer's 1000 Ml Bag IV 09/01/23 20:24 999 mls/hr .Q1H1M ONE Administration ORDERS Category Date Time Status CT bony pelvis Stat Cat Scan 09/01/23 19:[address] cervical spine wo con Stat Cat Scan 09/01/23 19:[address] head/brain wo con Stat Cat Scan 09/01/23 19:[address] lumbar spine wo con Stat Cat Scan 09/01/23 19:[address] thoracic spine wo con Stat Cat Scan 09/01/23 19:19 Completed CXR --portable [XR chest portable] Stat Exams 09/01/23 19:21 Completed CBC w/Auto Diff [Complete Blood Count Auto Diff] Stat Lab 09/01/23 18:18 Completed CMP [Comprehensive Metabolic Panel] Stat Lab 09/01/23 18:18 Completed Complete Blood Count Auto Diff AMLAB Lab 09/02/23 06:00 Ordered Comprehensive Metabolic Panel AMLAB Lab 09/02/23 06:00 Ordered Lactic Acid Stat Lab 09/01/23 23:08 Completed Magnesium AMLAB Lab 09/02/23 06:00 Ordered UA [Urinalysis and Microscopic] Stat Lab 09/01/23 20:00 Completed Blood Culture Stat Micro 09/01/23 23:08 Ordered Medical Decision Narrative: 73-year-old female with chronic debilitation, A-fib on Eliquis, hypertension, hyperlipidemia, diabetes with general weakness and abnormal labs. Patient was just admitted last week. Generalized weakness. Refused to go to alf, although family is losing ability to take care of patient at home. Positive blood cultures, patient was contacted and brought back to the emergency department. Patient denies fevers, chills, nausea, vomiting, but she has fallen a couple times since that is having new lumbar spine pain. History was obtained via conversation with patient and family. On arrival, patient hemodynamically stable, alert, oriented x4, appropriate, GCS 15, moving all extremities spontaneously, pupils equal and reactive to light. Full physical exam performed and significant for chronically ill-appearing woman in no acute distress. Abdomen is soft, nontender, nondistended. Patient does have midline spinal tenderness, unable to get comfortable in bed. Lungs are clear to auscultation, cardiac exam normal other than lower extremity edema. Patient has scattered bruising on bilateral upper lower extremities after numer ous falls. Differential includes spinal fracture, positive blood cultures, UTI, pneumonia, septicemia, among others. Patient was given fluid bolus for symptomatic management and correction of unde rlying abnormalities. Workup independently interpreted a nonactionable CBC or chemistry. Patient was stable kidney function. CT scans of the head, C-spine, T-spine, L-spine without concern for acute fracture or pathology. See radiology read for full review of final results. On reevaluation, patient resting in bed, unable to get comfortable. Hospital medicine is contacted and case was discussed at length, patient be admitted for further definitive management and likely placement. Given patient presentation, workup, history, this most likely represents positive blood cultures and inab ility to tolerate performing ADLs, need for placement. Because patient high risk for clinical decompensation, deemed appropriate for inpatient admission. Results were relayed to patient who voiced understanding and patient was agreeable to inpatient admission and management. Patient was admitted to the hospital for further definitive management. Critical Care Critical Care Time Critical Care Time: No
--- NOTE | 2023-09-01 19:19 | CT_ITS ---
PROCEDURE INFORMATION: Exam: CT Pelvis Without Contrast; Skeletal Exam date and time: 09/01/2023 7:44 PM Age: 73 years old Clinical indication: Injury or trauma; Fall; Blunt trauma (contusions or hematomas); Bilateral; Sacrum and coccyx; Injury date: 09/01/23; Additional info: Fall, lower spine pain TECHNIQUE: Imaging protocol: Computed tomography of the pelvis without contrast. Exam focused on the skeleton. Radiation optimization: All CT scans at this facility use at least one of these dose optimization techniques: automated exposure control; mA and/or kV adjustment per patient size (includes targeted exams where dose is matched to clinical indication); or iterative reconstruction. COMPARISON: CT ABDOMEN PELVIS WO CON 23/08/2023 17:04 FINDINGS: Reproductive: Status post hysterectomy. Vasculature: The arteries demonstrate severe atherosclerotic disease. Bones/joints: No acute fracture or dislocation. Soft tissues: Tiny fat containing umbilical hernia. There is a healed anterior abdominal wall incision. IMPRESSION: No acute fracture or dislocation.
--- NOTE | 2023-09-01 19:19 | CT_ITS ---
PROCEDURE INFORMATION: Exam: CT Thoracic Spine Without Contrast Exam date and time: 09/01/2023 7:38 PM Age: 73 years old Clinical indication: Pain and injury or trauma; Fall; Blunt trauma (contusions or hematomas); Pain in thoracic spine; With radiculopathy; Bilateral; Injury date: 09/01/23; Additional info: Fall, spine pain TECHNIQUE: Imaging protocol: Computed tomography of the thoracic spine without contrast. Radiation optimization: All CT scans at this facility use at least one of these dose optimization techniques: automated exposure control; mA and/or kV adjustment per patient size (includes targeted exams where dose is matched to clinical indication); or iterative reconstruction. COMPARISON: CT THORACIC SPINE WO CON 10/02/2022 19:54 FINDINGS: Bones/joints: Evaluation for nondisplaced fractures is limited due to soft tissue attenuation. Status post median sternotomy. Soft tissues: Unremarkable. Vasculature: Enlarged pulmonary arteries likely represent chronic pulmonary arterial hypertension. The aorta demonstrates severe atherosclerotic disease. Lungs: Mild scarring and atelectasis in the lower lungs. Heart: Cardiomegaly. Mitral and aortic valve calcifications. Coronary arteries: Coronary artery calcifications. Gallbladder and bile ducts: Gallbladder is absent. Adrenal glands: Nonspecific left adrenal thickening, likely benign. Other findings: Stigmata of old granulomatous disease. IMPRESSION: Evaluation for nondisplaced fractures is limited due to soft tissue attenuation. Within the limitations of the study, no acute fracture or malalignment of the thoracic spine.
--- NOTE | 2023-09-01 19:19 | CT_ITS ---
PROCEDURE INFORMATION: Exam: CT Lumbar Spine Without Contrast Exam date and time: 09/01/2023 7:41 PM Age: 73 years old Clinical indication: Injury or trauma; Fall; Blunt trauma (contusions or hematomas); Additional info: Fall, spine pain TECHNIQUE: Imaging protocol: Computed tomography of the lumbar spine without contrast. Radiation optimization: All CT scans at this facility use at least one of these dose optimization techniques: automated exposure control; mA and/or kV adjustment per patient size (includes targeted exams where dose is matched to clinical indication); or iterative reconstruction. COMPARISON: CT LUMBAR SPINE WO CON 10/08/2023 06:01 FINDINGS: Bones/joints: Evaluation for subtle nondisplaced fractures is limited due to soft tissue attenuation and large [id number] imaging. Multilevel degenerative changes of the lumbar spine producing multiple levels of mild and moderate spinal canal stenosis. Adrenal glands: Nonspecific left adrenal thickening, likely benign. Vasculature: The arteries demonstrate severe atherosclerotic disease. Soft tissues: Unremarkable. IMPRESSION: Evaluation for subtle nondisplaced fractures is limited due to soft tissue attenuation and large [id number]-[id number] imaging. Within the limitations of the study, no acute fracture or malalignment of the lumbar spine.
--- NOTE | 2023-09-01 19:21 | XR_ITS ---
PROCEDURE INFORMATION: Exam: XR Chest Exam date and time: 09/01/2023 7:42 PM Age: 73 years old Clinical indication: Injury or trauma; Fall; Blunt trauma (contusions or hematomas); Injury date: 09/01/23; Additional info: Weakness TECHNIQUE: Imaging protocol: Radiologic exam of the chest. Views: 1 view. COMPARISON: CR XR CHEST PORTABLE 23/08/2023 16:49 FINDINGS: Lungs: Unremarkable. No consolidation. Pleural spaces: Unremarkable. No pleural effusion. No pneumothorax. Heart/Mediastinum: Cardiomegaly. Vasculature: Vascular calcifications. Bones/joints: Status post median sternotomy and coronary artery bypass. IMPRESSION: No acute findings.
--- NOTE | 2023-09-01 19:22 | CT_ITS ---
PROCEDURE INFORMATION: Exam: CT Head Without Contrast Exam date and time: 09/01/2023 7:32 PM Age: 73 years old Clinical indication: Injury or trauma; Fall; Blunt trauma (contusions or hematomas); Injury date: 09/01/23; Additional info: Falls TECHNIQUE: Imaging protocol: Computed tomography of the head without contrast. Radiation optimization: All CT scans at this facility use at least one of these dose optimization techniques: automated exposure control; mA and/or kV adjustment per patient size (includes targeted exams where dose is matched to clinical indication); or iterative reconstruction. COMPARISON: CT HEAD/BRAIN WO CON 22/08/2023 18:49 FINDINGS: Brain: Moderate chronic brain volume loss and chronic small vessel ischemic changes. Cerebral ventricles: No ventriculomegaly. Paranasal sinuses: Visualized sinuses are unremarkable. No fluid levels. Mastoid air cells: Small right mastoid effusion. Orbital cavities: Status post bilateral cataract surgery. Bones/joints: Hyperostosis frontalis interna. Soft tissues: Unremarkable. IMPRESSION: No acute intracranial findings.
--- NOTE | 2023-09-01 19:22 | CT_ITS ---
PROCEDURE INFORMATION: Exam: CT Cervical Spine Without Contrast Exam date and time: 09/01/2023 7:35 PM Age: 73 years old Clinical indication: Injury or trauma; Fall; Blunt trauma; Additional info: Numerous falls TECHNIQUE: Imaging protocol: Computed tomography of the cervical spine without contrast. Radiation optimization: All CT scans at this facility use at least one of these dose optimization techniques: automated exposure control; mA and/or kV adjustment per patient size (includes targeted exams where dose is matched to clinical indication); or iterative reconstruction. COMPARISON: CT CERVICAL SPINE WO CON 08/03/2022 12:50 FINDINGS: Bones/joints: Evaluation for nondisplaced fractures is limited due to soft tissue attenuation and large [id number]-dugh imaging. Multilevel degenerative changes of the cervical spine producing multiple levels of mild spinal canal stenosis. Status post median sternotomy. Degenerative changes at C6-C7 appear to produce moderate spinal stenosis. Mastoid air cells: Small right mastoid effusion. Lungs: Lung apices are normal. Thyroid: Thyroid nodules measuring up to 2.9 cm. Vasculature: The aorta demonstrates severe atherosclerotic disease. Enlarged pulmonary arteries likely represent chronic pulmonary arterial hypertension. Soft tissues: Unremarkable. IMPRESSION: 1. Evaluation for nondisplaced fractures is limited due to soft tissue attenuation and large [id number] imaging. Within the limitations of the study, no acute fracture or malalignment of the cervical spine. 2. Thyroid nodules measuring up to 2.9 cm. This may have been biopsied in 2021. Continue management as clinically warranted. COMMENTS: Consistent with the [employer]'s Incidental Findings Committee white paper (J Am Rolo Radiol 2015): In patients aged 35 years and older with an incidental thyroid nodule equal to or greater than 1.[address], MRI or extrathyroidal US, further evaluation with dedicated thyroid US is recommended for patients with normal life expectancy and without comorbidities. For smaller nodules without suspicious features, no further evaluation or follow up is recommended.
--- NOTE | 2023-09-01 19:30 | PC.NURSE ---
patient to CT
[2023-09-01 19:46] LABS: Basophils # 0.1 K/mm3 (0-0.2); Basophils % 0.5 % (0.1-2.0); Eosinophils # 0.2 K/mm3 (0.0-0.4); Eosinophils % 1.9 % (0.1-12.0); Hematocrit 26.4 % (37.0-47.0); Hemoglobin 8.7 g/dL (12.2-16.2); Lymphocytes # 1.9 K/mm3 (0.7-4.5); Mean Corpuscular HGB Conc 32.8 g/dL (31.8-35.4); Mean Corpuscular Hemoglobin 22.2 pg (27.0-31.2); Mean Corpuscular Volume 67.6 fl (81-99); Mean Platelet Volume 7.8 fl (7.4-10.4); Monocytes # 0.6 K/mm3 (0.1-1.0); Monocytes % 6.2 % (1.7-9.3); Neutrophils # 7.3 K/mm3 (1.8-7.8); Neutrophils % 72.4 % (37.0-80.0); Platelet Count 357 K/mm3 (142-424); Red Cell Distribution Width 19.8 % (11.5-17.5); White Blood Count 10.1 K/mm3 (4.8-10.8)
[2023-09-01 19:49] LABS: Chloride 101 mmol/L (98-107); Sodium 132 mmol/L (136-145)
[2023-09-01 19:50] LABS: Potassium 4.4 mmoL/L (3.5-5.1)
[2023-09-01 19:52] LABS: Alanine Aminotransferase 40 U/L (12-78); Alkaline Phosphatase 110 U/L (38-126); Aspartate Amino Transferase 39 U/L (14-36); Bilirubin,Total 0.4 mg/dl (0.2-1.3); Creatinine Clearance Estimated 40 mL/min (50-200); Estimated Glomerular Filt Rate 49 ml/min (>60); GFR (African American) 59 ML/MIN (>60)
[2023-09-01 19:53] LABS: Albumin Level 3.6 g/dl (3.5-5.0); Anion Gap 9.4 mEq/L (5-15); Calcium 8.8 mg/dl (8.4-10.2); Carbon Dioxide 26 mmol/L (22.0-30.0); Globulin 3.6 g/dL (1.3-3.2); Glucose 142 mg/dl (74-100); Total Protein,Serum 7.2 g/dl (6.3-8.2)
[2023-09-01] MEDS: LACTATED RINGERS 1000ML 1,000 ML 999 ML IV (19:53)
[2023-09-01 20:05] LABS: Blood Urea Nitrogen 82 mg/dl (7-17)
[2023-09-01 20:28] LABS: Microscopic, Urine URINE MICROSCOPIC (MICROSCOPIC)
--- NOTE | 2023-09-01 20:34 | EXP.HP ---
History of Present Illness *Admission Date: 09/01/23 *Reason for visit:: positive blood culture. weakness *History of present illness: This is a 73-year-old female with PMHx of hypertension, hyperlipidemia, aortic stenosis, mitral valve regurgitation, CAD status post CABG, A-fib on Eliquis, CHF on 2.5 L nasal cannula, diabetes, COPD on nightly BiPAP, obese amongst many other things. Patient was hospitalized for CHF exacerbation and recently discharged home. Patient was called in for positive blood culture. Patient stated she was feeling better at the time of discharge that has been felling general weakness and malaise since 2 days ago. Per patient's daugther she is increasingly deteriorating and current unable to perform her daily ADLs. Daughter reported multiple assisted falls with now lumbar pain. Of note, they refused to go to [facility]. Patient denies fevers, chills, nausea, vomiting. Admitted for treatment and management. [facility] Disclaimer: The information contained in this section may have been updated after the patient was seen, as this information can be updated by other users. Medical History (Updated 09/02/23 @ 12:16 by Ronnie Sethi MD) Abnormal PFT Acute hip pain Acute on chronic diastolic heart failure Adult failure to thrive Anemia Anxiety Aortic stenosis Asthma exacerbation in COPD Atrial fibrillation Atrial fibrillation Atypical angina Atypical chest pain Bilateral swelling of feet Biventricular CHF (congestive heart failure) CHF (congestive heart failure) CHF exacerbation Chronic hypoxemic respiratory failure Chronic pain Contrast media allergy COPD (chronic obstructive pulmonary disease) Coronary artery disease Depression Diabetes mellitus Diabetic gastroparesis associated with type 2 diabetes mellitus Diabetic neuropathy associated with type 2 diabetes mellitus Diarrhea Dyspnea Dyspnea on exertion Dyspnea on exertion GERD (gastroesophageal reflux disease) History of 2019 novel coronavirus disease (COVID-19) Hyperlipidemia Hypertension Hypothyroidism Hypoxemia IDDM (insulin dependent diabetes mellitus) Intermittent confusion Low back pain Lumbar disc disease Lumbar disc disease with radiculopathy Lumbar radiculopathy Lumbar radiculopathy, chronic Lumbar radiculopathy, chronic Morbid obesity with BMI of 40.0-44.9, adult Nocturnal hypoxemia Non-STEMI (non-ST elevated myocardial infarction) ERICKSON (obstructive sleep apnea) ERICKSON (obstructive sleep apnea) Physical deconditioning Pneumonia Pneumonia Proliferative diabetic retinopathy Pulmonary HTN Pulmonary hypertension Restrictive lung disease Restrictive lung disease Sciatica associated with disorder of lumbar spine Severe pulmonary hypertension Sleep disorder breathing Stopped smoking with greater than 30 pack year history Typical angina Urinary incontinence Vertigo Vitamin D deficiency Weakness Surgical History History of cataract surgery History of eye surgery History of heart valve replacement History of lumpectomy Hx of CABG Family History Other Cancer Diabetes Heart attack Hyperlipidemia Hypertension Stroke Thyroid disorder Social History Smoking Status: Never smoker second hand exposure: No alcohol intake: never substance use type: denies use current occupational status: unemployed Travel in the last 8 weeks: None household members: children housing: house current occupational exposures/hazards: No caffeine: Yes Review of Systems Review of Systems Review of systems:: pertinent systems reviewed and negative unless documented below Meds Home Medications and Allergies Home Medications Medication Instructions Recorded Confirmed Type cholecalciferol (vitamin D3) 25 1,000 unit PO BID Supplement 08/11/20 09/02/23 History mcg (1,000 unit) capsule ascorbate calcium (vitamin C) 500 500 mg PO DAILY Supplement 11/30/20 09/02/23 History mg tablet albuterol sulfate 90 mcg/actuation 2 inh inhalation Q6HP PRN 08/01/22 09/02/23 History aerosol inhaler Shortness Of Breath Or Wheezing zinc acetate 50 mg (zinc) capsule 50 mg PO DAILY Supplement 10/06/22 09/02/23 History insulin detemir U-100 100 unit/mL 60 unit SQ BID Diabetes 07/04/23 09/02/23 History (3 mL) subcutaneous pen levothyroxine 50 mcg tablet 50 mcg PO DAILYDM THYROID 07/04/23 09/02/23 History metoclopramide HCl 5 mg tablet 5 mg PO BID STOMACH CRAMPS 07/04/23 09/02/23 History omeprazole 20 mg capsule,delayed 20 mg PO DAILY Acid Reflux 07/04/23 09/02/23 History release baclofen 10 mg tablet 10 mg PO BIDP PRN Muscle Spasm 07/05/23 09/02/23 History buspirone 5 mg tablet 5 mg PO HS Anxiety 07/05/23 09/02/23 History citalopram 40 mg tablet 40 mg PO DAILY Depression 07/05/23 09/02/23 History clopidogrel 75 mg tablet 75 mg PO DAILY Blood Thinner 07/05/23 09/02/23 History cranberry 1,000 mg capsule 1,500 mg PO DAILY Supplement 07/05/23 09/02/23 History dulaglutide 0.75 mg/0.5 mL 0.75 mg SQ SA Diabetes 07/05/23 09/02/23 History subcutaneous pen injector (Trulicity) ergocalciferol (vitamin D2) 1,250 50,000 unit PO TOMLINSON Supplement 07/05/23 09/02/23 History mcg (50,000 unit) capsule (Vitamin D2) fluticasone furoate 100 1 inh inhalation DAILY Copd 07/05/23 09/02/23 History mcg-vilanterol 25 mcg/dose inhalation powder (Breo Ellipta) apixaban 5 mg tablet (Eliquis) 5 mg PO BID Blood Thinner 09/02/23 09/02/23 History atorvastatin 40 mg tablet 40 mg PO HS Cholesterol 09/02/23 09/02/23 History bisoprolol fumarate 5 mg tablet 2.5 mg PO HS High Blood Pressure 09/02/23 09/02/23 History bumetanide 1 mg tablet 1 mg PO 0800,1400 Fluid 09/02/23 09/02/23 History gabapentin 800 mg tablet 800 mg PO TID NERVE PAIN 09/02/23 09/02/23 History hydrocodone 5 mg-acetaminophen 325 1 tab PO QIDP PRN Moderate Pain 09/02/23 09/02/23 History mg tablet (Scale Score 5-6) icosapent ethyl 1 gram capsule 2 g PO BID Cholesterol 09/02/23 09/02/23 History (Vascepa) insulin aspar prot-insulin aspart 60 unit SQ BID Diabetes 09/02/23 09/02/23 History 100 unit/mL (70-30) subcutaneous pen (Novolog Mix 70-30FlexPen U-100) irbesartan 75 mg tablet 37.5 mg PO DAILY High Blood 09/02/23 09/02/23 History Pressure meclizine 25 mg tablet 25 mg PO BIDP PRN Dizziness 09/02/23 09/02/23 History polyethylene glycol 3350 17 gram 17 g PO DAILY Constipation 09/02/23 09/02/23 History oral powder packet New Prescriptions to Start Prescriptions: Allergies Allergy/AdvReac Type Severity Reaction Status Date / Time Iodinated Contrast Media Allergy Intermediate Hives Verified 08/23/23 14:44 [Iodinated Contrast Media - IV Dye] celecoxib [From CELEBREX] Allergy Unknown SWELLING Verified 08/23/23 14:44 ibuprofen [IBUPROFEN] Allergy Unknown S-BLISTERING Verified 08/23/23 14:44 WELTS meloxicam [MELOXICAM] Allergy Unknown S-BLISTERING Verified 08/23/23 14:44 WELTS Penicillins [PENICILLINS] Allergy Unknown I-HIVES Verified 08/23/23 14:44 rofecoxib [From VIOXX] Allergy Unknown I-HIVES Verified 08/23/23 14:44 Exam Data for Last 24 hours Vital signs and Labs for Last 24 Hours: Temp Pulse Resp BP Pulse Ox O2 Del Method O2 Flow Rate 98.7 F 63 16 99/38 L 98 Room Air 2 09/01/23 18:43 09/01/23 19:01 09/01/23 19:01 09/01/23 19:01 09/01/23 19:01 09/01/23 19:01 09/01/23 18:43 Laboratory Results - last 24 hr 09/01/23 18:18: WBC 10.1, RBC 3.90 L, Hgb 8.7 L, Hct 26.4 L, MCV 67.6 L, MCH 22.2 L, MCHC 32.8, RDW 19.8 H, Plt Count 357, MPV 7.8, Neut % (Auto) 72.4, Lymph % (Auto) 19.0, [place] % (Auto) 6.2, Eos % (Auto) 1.9, Baso % (Auto) 0.5, Neut # (Auto) 7.3, Lymph # (Auto) 1.9, [place] # (Auto) 0.6, Eos # (Auto) 0.2, Baso # (Auto) 0.1, Sodium 132 L, Potassium 4.4, Chloride 101, Carbon Dioxide 26, Anion Gap 9.4, BUN 82 H, Creatinine 1.10 H, Estimated Creat Clear 40, Estimated GFR 49 L, Est GFR ( Amer) 59, Glucose 142 H, Calcium 8.8, Total Bilirubin 0.4, AST 39 H, ALT 40, Alkaline Phosphatase 110, Total Protein 7.2, Albumin 3.6, Globulin 3.6 H, Albumin/Globulin Ratio 1.0 L I & O for Last 24 hours: Intake & Output 08/29/23 08/30/23 08/31/23 09/01/23 23:59 23:59 23:59 23:59 Weight 113.398 kg Constitutional Constitutional: no acute distress and morbidly obese *Routine HEENT Exam Head: Present normocephalic and atraumatic Eye: Present EOMI, PERRL and normal accommodation ENT: Present mucous membranes moist *Routine Neck Exam Neck: Present supple and full ROM *Routine Respiratory Exam Respiratory: Present prolonged expiratory phase, wheezes, crackles, normal respiratory effort and able to speak in complete sentences *Routine Cardiovascular Exam Cardiovascular: Present Normal S1, Normal S2, irregular rhythm and irregularly irregular *Routine Abdominal Exam Abdominal: Present soft and normoactive bowel sounds *Routine Rectal Exam Rectal:: deferred *Routine Genitalia Exam Genitalia:: deferred *Routine Extremities Exam Extremities: Present edema, full ROM, pulses intact and normal capillary refill *Routine Skin Exam Skin: Present intact and dry *Routine Neurological Exam Neurological: Present alert and altered mental status H&P: Result Imaging and Cardiology EKG: Status: image reviewed by me and Preliminary report CT scan - abdomen: Status: image reviewed by me, Preliminary report and final report CT scan - head: Status: image reviewed by me, Preliminary report and final report CT scan - pelvis: Status: image reviewed by me, Preliminary report and final report CT scan - chest: Status: image reviewed by me, Preliminary report and final report Assessment and Plan *Assessment and plan (1) Bacteremia: Status: Acute Category: Medical Code(s): R78.81 - Bacteremia (2) Physical deconditioning: Status: Inactive Category: Medical Code(s): R53.81 - Other malaise (3) Hyponatremia: Status: Acute Category: Medical Code(s): E87.1 - Hypo-osmolality and hyponatremia (4) Physical deconditioning: Status: Acute Category: Medical Code(s): R53.81 - Other malaise (5) CHF (congestive heart failure): Status: Acute Qualifiers: Heart failure chronicity: acute on chronic Heart failure type: unspecified Qualified Code(s): I50.9 - Heart failure, unspecified Category: Medical Code(s): I50.9 - Heart failure, unspecified (6) Diabetes mellitus: Problem Comment: type 2 non insulin dep Status: Inactive Qualifiers: Diabetes mellitus complication status: with hyperglycemia 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: with shelter use Diabetes mellitus type: type 2 Qualified Code(s): E11.65 - Type 2 diabetes mellitus with hyperglycemia Category: Medical Code(s): E11.9 - Type 2 diabetes mellitus without complications (7) Hypertension: Status: Inactive Qualifiers: Hypertension type: essential hypertension Qualified Code(s): I10 - Essential (primary) hypertension Category: Medical Code(s): I10 - Essential (primary) hypertension (8) Hyperlipidemia: Status: Inactive Qualifiers: Hyperlipidemia type: unspecified Qualified Code(s): E78.5 - Hyperlipidemia, unspecified Category: Medical Code(s): E78.5 - Hyperlipidemia, unspecified (9) Morbid obesity with BMI of 40.0-44.9, adult: Status: Inactive Category: Medical Code(s): E66.01 - Morbid (severe) obesity due to excess calories; Z68.41 - Body mass index [BMI] 40.0-44.9, adult Plan This is a 73-year-old female with PMHx of hypertension, hyperlipidemia, aortic stenosis, mitral valve regurgitation, CAD status post CABG, A-fib on Eliquis, CHF on 2.5 L nasal cannula, diabetes, COPD on nightly BiPAP, obese amongst many other things. Patient's family states that she has been on a decline for the past 2 days. on arrival, new set of lab was obtained. patient presented anemic, hyponatremic, Creatinine has been stable. Head to toe CT screening conducted due to c/o multiples falls at home and lumbar pain. Imaging reviewed. Discussed with ER. agreed for admission. Plan as follow: -Bacteremia: readmitted patient hemodinamically stable. no organ failure or major signs of sepsis BC reviewed. started on Vancomycin per susceptibility report cont VS monitoring per unit monitor for sepsis repeat labs in the morning. watch for CBC -Physical deconditioning, unable to care for herself: PT OT consult for reeval and treatment health spa manager will be involved for assistance on the discharge planning -Hyponatremia: likely secondary to diuresis plus poor intake. will given 1L to a very slow rate to avoid fluid overload monitor for other electrolytes imabalances repeat CMP in the morning -CHF: Plan to continue home diuresis. , recently switched to PO Bumex per cardiology -Diabetes insulin-dependent: With gastroparesis and neuropathy: Resume home regimen On gabapentin and hydrocodone Hypertension hyperlipidemia: Conditions are reviewed Resume bisoprolol Patient on statin and Eliquis and Plavix Morbid obesity with comorbidity: Will complicate all aspects of care. Eliguis for DVT ppx. on Protonix Full code Rounded on patient after nurse practitioner. Personally examined and interviewed patient. Agree with exam findings and care plan as documented.
--- NOTE | 2023-09-01 20:39 | ECG_ITS ---
APPROVED REPORT Exam: Resting ECG HR:73 bpm ECG Measurements Heart Rate 73 AXES QRSd 152 QRS 10 QT 457 T 52 QTc 483 Conclusion ATRIAL FIBRILLATION RIGHT BUNDLE BRANCH BLOCK [120+ ms QRS DURATION, UPRIGHT V1, 40+ ms S IN I/aVL/V4/V5/V6] ABNORMAL ECG INTERPRETATION BASED ON A DEFAULT AGE OF 40 YEARS UNCONFIRMED REPORT Electronically signed by : Andrade Pack MD 09/02/2023 06:28:05
[2023-09-01 20:42] LABS: Appearance,Urine CLEAR (Clear); Bilirubin,Urine Negative (Negative); Blood, Urine Negative (Negative); Color,Urine YELLOW (Yellow); Glucose,Urine (UA) Negative (Negative); Ketones,Urine Negative (Negative); Leukocyte Esterase,Urine Negative (Negative); Nitrate,Urine Negative (Negative); PH,Urine 5.5 (5.0-8.5); Protein,Urine Negative (Negative); Urobilinogen,Urine 0.2 EU/dl (0.2)
--- NOTE | 2023-09-01 20:49 | PC.NURSE ---
Attempted to call report. RN unable to take report at this time
--- NOTE | 2023-09-01 20:56 | PC.NURSE ---
Admissions notified of OBS admission to [facility] for Bacteremia to [facility]
[2023-09-01 21:00] LABS: Squamous Epithelial Cell,Urine Occasional #/hpf (0-5)
--- NOTE | 2023-09-01 21:25 | PC.NURSE ---
Report called to CHRISTIANE Hernandez
--- NOTE | 2023-09-01 22:06 | PC.NURSE ---
Called 2nd floor charge for transport. Awaiting their arrival
--- NOTE | 2023-09-01 22:11 | PC.NURSE ---
RECEIVED PHONE REPORT FROM OMAIRA RN/ED NURSE AT [id number]. PATIENT IS A 73 YO FEMALE . ADMITTED FOR BACTEREMIA/POSITIVE BLD CULTURES. MAY TRANSFER BY STRETCHER.
[2023-09-01 22:18] VITALS: BP 135/57; PULSE 79; RESP 17; TEMP 36.7; O2SAT 97
--- NOTE | 2023-09-01 22:21 | PC.NURSE ---
2219 PATIENT ARRIVED TO THE FLOOR VIA W/C.
--- NOTE | 2023-09-01 22:23 | PC.NURSE ---
pt arrived to floor at this time
[2023-09-01 22:25] VITALS: BP 135/57; PULSE 66; RESP 14; TEMP 36.4; O2SAT 97
[2023-09-01] MEDS: 0.9 % SODIUM CHLORIDE 1000ML 1,000 ML 50 ML IV (22:58)
--- NOTE | 2023-09-01 23:13 | PC.NURSE ---
7224 BENJAMIN/[facility]WATCH PHARMACIST CONSULTED RE VANCOMYCIN FOR BACTEREMIA. BENJAMIN TO PLACE ORDER FOR VANCOMYCIN DOSING.
[2023-09-01] MEDS: VANCOMYCIN CONSULT REQUEST 1 EACH NOTAPPLIC (23:17)
[2023-09-01] MEDS: MORPHINE 2MG/ML SYRINGE 2 MG IV (23:25)
[2023-09-01 23:28] LABS: Lactic Acid 0.6 mmol/L (0.7-2.1)
[2023-09-01] MEDS: VANCOMYCIN HCL 2,000 MG in 0.9 % SODIUM CHLORIDE 500 ML 166 MG IV (23:59)
[2023-09-02] VITALS (17 sets, daily range): BP systolic 118–182; BP diastolic 60–96; PULSE 62–103; RESP 18–20; TEMP 36.5–37.1; O2SAT 91–100; BMI 41.6
[2023-09-02 05:41] LABS: POC Glucose,Bedside 113 (70-110)
[2023-09-02 07:16] LABS: Basophils % 0.4 % (0.1-2.0); Eosinophils # 0.2 K/mm3 (0.0-0.4); Eosinophils % 2.6 % (0.1-12.0); Hematocrit 24.8 % (37.0-47.0); Hemoglobin 8.1 g/dL (12.2-16.2); Lymphocytes # 1.4 K/mm3 (0.7-4.5); Lymphocytes % 20.5 % (10-50); Mean Corpuscular HGB Conc 32.8 g/dL (31.8-35.4); Mean Corpuscular Hemoglobin 22.3 pg (27.0-31.2); Mean Corpuscular Volume 68.1 fl (81-99); Mean Platelet Volume 7.4 fl (7.4-10.4); Monocytes # 0.4 K/mm3 (0.1-1.0); Monocytes % 5.4 % (1.7-9.3); Neutrophils % 71.2 % (37.0-80.0); Platelet Count 274 K/mm3 (142-424); Red Blood Count 3.64 M/mm3 (4.20-5.40)
[2023-09-02 07:20] LABS: Chloride 107 mmol/L (98-107); Potassium 3.8 mmoL/L (3.5-5.1); Sodium 137 mmol/L (136-145)
[2023-09-02 07:23] LABS: Alanine Aminotransferase 34 U/L (12-78); Albumin/Globulin Ratio 0.9 (1.1-1.8); Alkaline Phosphatase 108 U/L (38-126); Anion Gap 6.8 mEq/L (5-15); Aspartate Amino Transferase 33 U/L (14-36); Bilirubin,Total 0.3 mg/dl (0.2-1.3); Blood Urea Nitrogen 57 mg/dl (7-17); Calcium 8.5 mg/dl (8.4-10.2); Carbon Dioxide 27 mmol/L (22.0-30.0); Creatinine Clearance Estimated 43 mL/min (50-200); Estimated Glomerular Filt Rate 61 ml/min (>60); GFR (African American) 74 ML/MIN (>60); Globulin 3.4 g/dL (1.3-3.2); Glucose 106 mg/dl (74-100); Total Protein,Serum 6.4 g/dl (6.3-8.2)
[2023-09-02 07:24] LABS: Magnesium 2.7 mg/dl (1.6-2.3)
[2023-09-02] MEDS: MORPHINE 2MG/ML SYRINGE 2 MG IV ×3 (07:49→22:11)
[2023-09-02] MEDS: ONDANSETRON 4MG/2ML VIAL 4 MG IV (07:51)
[2023-09-02 08:04] LABS: NT Pro Brain Natriuretic Pep. 309 pg/mL (0-125)
[2023-09-02 08:33] LABS: Iron 31 ug/dL (37-170)
[2023-09-02 08:43] LABS: Total Iron Binding Capacity 334 ug/dL (265-497)
[2023-09-02 09:10] LABS: Ferritin 44.9 ng/ml (11.1-264)
[2023-09-02] MEDS: APIXABAN 5MG TABLET 5 MG PO ×2 (09:13→22:12)
[2023-09-02] MEDS: ASCORBIC ACID 500MG TAB 500 MG PO (09:13)
[2023-09-02] MEDS: LEVOTHYROXINE 50MCG (0.05MG) TAB 50 MCG PO (09:14)
[2023-09-02] MEDS: CLOPIDOGREL 75MG TAB 75 MG PO (09:14)
[2023-09-02] MEDS: CITALOPRAM 40MG TABLET 40 MG PO (09:14)
--- NOTE | 2023-09-02 09:22 | EXP.PHA.CONS ---
Pharmacy Consult Date: 09/02/23 Time: 09:22 Referring provider: DR KRAMER Reason for Consult:: VANCOMYCIN DOSING CONSULT Allergies Allergy/AdvReac Type Severity Reaction Status Date / Time Iodinated Contrast Media Allergy Intermediate Hives Verified 08/23/23 14:44 [Iodinated Contrast Media - IV Dye] celecoxib [From CELEBREX] Allergy Unknown SWELLING Verified 08/23/23 14:44 ibuprofen [IBUPROFEN] Allergy Unknown S-BLISTERING Verified 08/23/23 14:44 WELTS meloxicam [MELOXICAM] Allergy Unknown S-BLISTERING Verified 08/23/23 14:44 WELTS Penicillins [PENICILLINS] Allergy Unknown I-HIVES Verified 08/23/23 14:44 rofecoxib [From VIOXX] Allergy Unknown I-HIVES Verified 08/23/23 14:44 Home Medications Medication Instructions Recorded Confirmed Type cholecalciferol (vitamin D3) 25 1,000 unit PO BID Diet supplement 08/11/20 09/01/23 History mcg (1,000 unit) capsule ascorbate calcium (vitamin C) 500 500 mg PO DAILY SUPPLEMTN 11/30/20 09/01/23 History mg tablet albuterol sulfate 90 mcg/actuation 2 inh inhalation Q6H PRN Shortness 08/01/22 09/01/23 History aerosol inhaler Of Breath Or Wheezing zinc acetate 50 mg (zinc) capsule 50 mg PO DAILY 10/06/22 09/01/23 History pen needle, diabetic 29 gauge x #100 ea 01/17/23 08/23/23 Rx 1/2 (Ultra-Thin II Insulin Pen [place]) pen needle, diabetic 31 gauge x #1,200 ea 02/06/23 08/23/23 Rx 5/16 (BD Ultra-Fine Short Pen Needle) icosapent ethyl 1 gram capsule 2 g PO BID #360 caps 06/29/23 09/01/23 Rx (Vascepa) insulin detemir U-100 100 unit/mL 60 unit SQ BID 07/04/23 09/01/23 History (3 mL) subcutaneous pen levothyroxine 50 mcg tablet 50 mcg PO DAILY 07/04/23 09/01/23 History metoclopramide HCl 5 mg tablet 5 mg PO BID 07/04/23 09/01/23 History omeprazole 20 mg capsule,delayed 20 mg PO DAILY 07/04/23 09/01/23 History release baclofen 10 mg tablet 10 mg PO BIDP PRN muscle spasms 07/05/23 09/01/23 History buspirone 5 mg tablet 5 mg PO HS 07/05/23 09/01/23 History citalopram 40 mg tablet 40 mg PO DAILY 07/05/23 09/01/23 History clopidogrel 75 mg tablet 75 mg PO DAILY 07/05/23 09/01/23 History cranberry 1,000 mg capsule 1,500 mg PO DAILY 07/05/23 09/01/23 History dulaglutide 0.75 mg/0.5 mL 0.75 mg SQ WEEKLY 07/05/23 09/01/23 History subcutaneous pen injector (Trulicity) ergocalciferol (vitamin D2) 1,250 50,000 unit PO WEEKLY 07/05/23 09/01/23 History mcg (50,000 unit) capsule (Vitamin D2) fluticasone furoate 100 1 inh inhalation DAILY 07/05/23 09/01/23 History mcg-vilanterol 25 mcg/dose inhalation powder (Breo Ellipta) polyethylene glycol 3350 17 17 g PO DAILY #238 grams 07/06/23 09/01/23 Rx gram/dose oral powder (Laxative PEG 3350) apixaban 5 mg tablet (Eliquis) 5 mg PO BID 30 days #60 tabs 07/25/23 09/01/23 Rx atorvastatin 40 mg tablet 40 mg PO HS 30 days #30 tabs 07/25/23 09/01/23 Rx bumetanide 1 mg tablet 1 mg PO 0800,1400 30 days #60 tabs 07/25/23 09/01/23 Rx insulin aspar prot-insulin aspart 60 unit (0.6 mL) SQ BID #15 mL 07/26/23 09/01/23 Rx 100 unit/mL (70-30) subcutaneous pen (Novolog Mix 70-30FlexPen U-100) meclizine 25 mg tablet 25 mg PO BID PRN dizziness #60 tabs 08/03/23 09/01/23 Rx bisoprolol fumarate 5 mg tablet 2.5 mg PO HS 30 days #15 tabs 08/27/23 09/01/23 Rx irbesartan 75 mg tablet 37.5 mg PO DAILY 30 days #15 tabs 08/27/23 09/01/23 Rx gabapentin 800 mg tablet 800 mg PO TID #90 tabs 09/01/23 09/01/23 Rx hydrocodone 5 mg-acetaminophen 325 1 tab PO QID PRN pain #120 tabs 09/01/23 09/01/23 Rx mg tablet New Prescriptions to Start Prescriptions: Height: 1.65 m Weight: 113.455 kg Laboratory Results:: Laboratory Results - last 24 hr 09/01/23 18:18: WBC 10.1, RBC 3.90 L, Hgb 8.7 L, Hct 26.4 L, MCV 67.6 L, MCH 22.2 L, MCHC 32.8, RDW 19.8 H, Plt Count 357, MPV 7.8, Neut % (Auto) 72.4, Lymph % (Auto) 19.0, [place] % (Auto) 6.2, Eos % (Auto) 1.9, Baso % (Auto) 0.5, Neut # (Auto) 7.3, Lymph # (Auto) 1.9, [place] # (Auto) 0.6, Eos # (Auto) 0.2, Baso # (Auto) 0.1, Sodium 132 L, Potassium 4.4, Chloride 101, Carbon Dioxide 26, Anion Gap 9.4, BUN 82 H, Creatinine 1.10 H, Estimated Creat Clear 40, Estimated GFR 49 L, Est GFR ( Amer) 59, Glucose 142 H, Calcium 8.8, Total Bilirubin 0.4, AST 39 H, ALT 40, Alkaline Phosphatase 110, Total Protein 7.2, Albumin 3.6, Globulin 3.6 H, Albumin/Globulin Ratio 1.0 L 09/01/23 20:00: Urine Color Yellow, Urine Appearance Clear, Urine pH 5.5, Ur Specific [place] 1.010, Urine Protein Negative, Urine Glucose (UA) Negative, Urine Ketones Negative, Urine Blood Negative, Urine Nitrate Negative, Urine Bilirubin Negative, Urine Urobilinogen 0.2, Ur Leukocyte Esterase Negative, Urine RBC None, Urine WBC None, Ur Squamous Epith Cells Occasional, Urine Bacteria None 09/01/23 23:08: Lactate 0.6 L 09/02/23 05:29: POC Glucose 113 H 09/02/23 06:27: WBC 7.0 D, RBC 3.64 L, Hgb 8.1 L, Hct 24.8 L, MCV 68.1 L, MCH 22.3 L, MCHC 32.8, RDW 20.0 H, Plt Count 274, MPV 7.4, Neut % (Auto) 71.2, Lymph % (Auto) 20.5, [place] % (Auto) 5.4, Eos % (Auto) 2.6, Baso % (Auto) 0.4, Neut # (Auto) 5.0, Lymph # (Auto) 1.4, [place] # (Auto) 0.4, Eos # (Auto) 0.2, Baso # (Auto) 0.0, Sodium 137, Potassium 3.8, Chloride 107, Carbon Dioxide 27, Anion Gap 6.8, BUN 57 H D, Creatinine 0.90, Estimated Creat Clear 43, Estimated GFR 61, Est GFR ( Amer) 74 D, Glucose 106 H D, Calcium 8.5, Magnesium 2.7 H, Iron 31 L, TIBC 334, Iron Saturation 9.64952 L, Ferritin 44.9, Total Bilirubin 0.3, AST 33, ALT 34, Alkaline Phosphatase 108, NT-Pro-B Natriuret Pep 309 H, Total Protein 6.4, Albumin 3.0 L D, Globulin 3.4 H, Albumin/Globulin Ratio 0.9 L Medical History: Medical History (Updated 09/02/23 @ 03:33 by Devin Peres APRN) Abnormal PFT Acute hip pain Acute on chronic diastolic heart failure Adult failure to thrive Anemia Anxiety Aortic stenosis Asthma exacerbation in COPD Atrial fibrillation Atrial fibrillation Atypical angina Atypical chest pain Bilateral swelling of feet Biventricular CHF (congestive heart failure) CHF (congestive heart failure) CHF exacerbation Chronic hypoxemic respiratory failure Chronic pain Contrast media allergy COPD (chronic obstructive pulmonary disease) Coronary artery disease Depression Diabetes mellitus Diabetic gastroparesis associated with type 2 diabetes mellitus Diabetic neuropathy associated with type 2 diabetes mellitus Diarrhea Dyspnea Dyspnea on exertion Dyspnea on exertion GERD (gastroesophageal reflux disease) History of 2019 novel coronavirus disease (COVID-19) Hyperlipidemia Hypertension Hypothyroidism Hypoxemia IDDM (insulin dependent diabetes mellitus) Intermittent confusion Low back pain Lumbar disc disease Lumbar disc disease with radiculopathy Lumbar radiculopathy Lumbar radiculopathy, chronic Lumbar radiculopathy, chronic Morbid obesity with BMI of 40.0-44.9, adult Nocturnal hypoxemia Non-STEMI (non-ST elevated myocardial infarction) ERICKSON (obstructive sleep apnea) ERICKSON (obstructive sleep apnea) Physical deconditioning Pneumonia Pneumonia Proliferative diabetic retinopathy Pulmonary HTN Pulmonary hypertension Restrictive lung disease Restrictive lung disease Sciatica associated with disorder of lumbar spine Severe pulmonary hypertension Sleep disorder breathing Stopped smoking with greater than 30 pack year history Typical angina Urinary incontinence Vertigo Vitamin D deficiency Weakness Assessment and Plan Assessment and plan all Dx Assessment and Plan for all problems:: Pharmacokinetic dosing service Objective: Age: 73 yo Serum creatinine: 0.9 mg/dL Height: 65.0 Inches Weight (kg): 113.455 Diagnosis: BACTEREMIA Assessment: IBW (kg): 57.00 Dosing wt(kg): 113.455 Estimated Creatinine clearance (ml/min): 49.3 CRCL method: Cockcroft and Gault using ibw(default). Drug selected: Vancomycin Loading dose (mg): Vd (liters): 79.4 (factor used: 0.7 L/kg) Rodo (hr-1): 0.045 Half life (hrs): 15.40 CLvanco=?? 3.573 L/hr Recommended dose: 2000 mg Interval: 24 hrs Infusion time (hrs): 2.0 Predicted peak (mcg/mL): 36.5 Predicted trough (mcg/mL): 13.56 Total body weight is being used for vancomycin dosing. Recommendations: Give Vancomycin 2000 mg q 24 hrs with an expected Cpeak of 36.5 mcg/ml and an expected Ctrough of 13.56 mcg/ml AUC 0-24 /URSZULA Data: URSZULA 0.5 mcg/mL:?? AUC/URSZULA:? 1119.5 URSZULA 1.0 mcg/mL:?? AUC/URSZULA:? 559.8 --------- URSZULA 1.5 mcg/mL:?? AUC/URSZULA:? 373.2 URSZULA 2.0 mcg/mL:?? AUC/URSZULA:? 279.9 Thank you for the consult
[2023-09-02] MEDS: INSULIN DETEMIR 100 UNIT/ML 3ML FLEXPEN 30 UNIT SQ (09:23)
[2023-09-02] MEDS: IRON SUCROSE COMPLEX 200 MG in 0.9 % SODIUM CHLORIDE 100 ML 220 MG IV (10:34)
--- NOTE | 2023-09-02 11:00 | HMH.PHAINT1 ---
Pharmacy Intervention Comments: MEDICATION RECONCILIATION COMPLETE USING LIST FROM MOST RECENT [facility]OPS[facility] DISCHARGE AND DEANN REPORT.
[2023-09-02 12:06] LABS: POC Glucose,Bedside 151 (70-110)
[2023-09-02 12:07] LABS: POC Glucose,Bedside 151 (70-110)
--- NOTE | 2023-09-02 12:14 | P.PN_ITS ---
Subjective *Date: 09/02/23 *Time: 12:14 Interval history: Patient appears at her baseline mentation. Has poor recall. Tolerate to leave his nasal cannula which is her based on. No fever at labs reviewed, white white count remained stable. -700 cc fluid this morning. Tolerating p.o. intake with assistance. Complaining of her bottom hurting. Medical Exam Vital signs and Labs for Last 24 Hours: Vital Signs Temp Pulse Pulse Resp BP BP Pulse Ox 09/02/23 08:00 97.9 F 89 19 121/72 98 09/02/23 06:17 09/02/23 04:00 97.7 F 62 20 118/72 100 09/02/23 04:56 09/02/23 03:00 09/02/23 01:00 09/02/23 00:00 97.7 F 72 18 150/62 H 100 09/01/23 23:00 09/01/23 22:25 97.6 F 66 14 135/57 L 97 09/01/23 22:18 98.0 F 79 17 135/57 L 09/01/23 19:01 63 16 99/38 L 98 09/01/23 18:43 98.7 F 70 13 130/54 L 98 O2 Del Method O2 Flow Rate 09/02/23 08:00 Nasal Cannula 09/02/23 06:17 Nasal Cannula 2 09/02/23 04:00 Nasal Cannula 2 09/02/23 04:56 Nasal Cannula 2 09/02/23 03:00 Nasal Cannula 2 09/02/23 01:00 Nasal Cannula 2 09/02/23 00:00 Nasal Cannula 2 09/01/23 23:00 Nasal Cannula 2 09/01/23 22:25 09/01/23 22:18 Nasal Cannula 2 09/01/23 19:01 Room Air 09/01/23 18:43 Nasal Cannula 2 Intake and Output 09/01/23 09/02/23 09/02/23 23:59 07:59 15:59 Intake Total 1097 / 1457 360 / 1457 Output Total 1800 / 1800 0 / 1800 Balance -703 / -343 360 / -343 Intake: Intake, Oral Amount 240 / 600 360 / 600 Intake, Total IV Amount 857 / 857 0.9 % Sodium Chloride 1000ML 1, 357 / 357 000 ml @ 50 mls/hr IV .Q20H [facility] Rx#:[id number] Vancomycin HCl 2,000 mg In 0.9 500 / 500 % Sodium Chloride 500 ml @ 166 mls/hr IV ONCE ONE Rx#:[id number] Output: Output, Urine Amount 1800 / 1800 0 / 1800 Other: Number of Voids 0 Number of Unmeasured Voids 0 Weight 113.398 kg 113.455 kg 113.455 kg Patient Weight 09/02/23 23:59 Weight 113.455 kg Laboratory Results - last 24 hr 09/01/23 18:18: WBC 10.1, RBC 3.90 L, Hgb 8.7 L, Hct 26.4 L, MCV 67.6 L, MCH 22.2 L, MCHC 32.8, RDW 19.8 H, Plt Count 357, MPV 7.8, Neut % (Auto) 72.4, Lymph % (Auto) 19.0, [place] % (Auto) 6.2, Eos % (Auto) 1.9, Baso % (Auto) 0.5, Neut # (Auto) 7.3, Lymph # (Auto) 1.9, [place] # (Auto) 0.6, Eos # (Auto) 0.2, Baso # (Auto) 0.1, Sodium 132 L, Potassium 4.4, Chloride 101, Carbon Dioxide 26, Anion Gap 9.4, BUN 82 H, Creatinine 1.10 H, Estimated Creat Clear 40, Estimated GFR 49 L, Est GFR ( Amer) 59, Glucose 142 H, Calcium 8.8, Total Bilirubin 0.4, AST 39 H, ALT 40, Alkaline Phosphatase 110, Total Protein 7.2, Albumin 3.6, Globulin 3.6 H, Albumin/Globulin Ratio 1.0 L 09/01/23 20:00: Urine Color Yellow, Urine Appearance Clear, Urine pH 5.5, Ur Specific [place] 1.010, Urine Protein Negative, Urine Glucose (UA) Negative, Urine Ketones Negative, Urine Blood Negative, Urine Nitrate Negative, Urine Bilirubin Negative, Urine Urobilinogen 0.2, Ur Leukocyte Esterase Negative, Urine RBC None, Urine WBC None, Ur Squamous Epith Cells Occasional, Urine Bacteria None 09/01/23 23:08: Lactate 0.6 L 09/02/23 05:29: POC Glucose 113 H 09/02/23 06:27: WBC 7.0 D, RBC 3.64 L, Hgb 8.1 L, Hct 24.8 L, MCV 68.1 L, MCH 22.3 L, MCHC 32.8, RDW 20.0 H, Plt Count 274, MPV 7.4, Neut % (Auto) 71.2, Lymph % (Auto) 20.5, [place] % (Auto) 5.4, Eos % (Auto) 2.6, Baso % (Auto) 0.4, Neut # (Auto) 5.0, Lymph # (Auto) 1.4, [place] # (Auto) 0.4, Eos # (Auto) 0.2, Baso # (Auto) 0.0, Sodium 137, Potassium 3.8, Chloride 107, Carbon Dioxide 27, Anion Gap 6.8, BUN 57 H D, Creatinine 0.90, Estimated Creat Clear 43, Estimated GFR 61, Est GFR ( Amer) 74 D, Glucose 106 H D, Calcium 8.5, Magnesium 2.7 H, Iron 31 L, TIBC 334, Iron Saturation 9.09656 L, Ferritin 44.9, Total Bilirubin 0.3, AST 33, ALT 34, Alkaline Phosphatase 108, NT-Pro-B Natriuret Pep 309 H, Total Protein 6.4, Albumin 3.0 L D, Globulin 3.4 H, Albumin/Globulin Ratio 0.9 L 09/02/23 09:21: POC Glucose 151 H 09/02/23 11:29: POC Glucose 151 H I & O for Labs for Last 24 Hours: Intake & Output 08/30/23 08/31/23 09/01/23 09/02/23 23:59 23:59 23:59 23:59 Intake Total 1457 / 1457 Output Total 1800 / 1800 Balance -343 / -343 Weight 113.398 kg 113.455 kg Constitutional: Present no acute distress, morbidly obese, chronically ill appearing and cooperative Head: Present atraumatic and normocephalic ENT: Present normal exam Comment:: cushingoid facies Respiratory: Present crackles, distant breath sounds, diminished air movement and normal respiratory effort; Absent rhonchi or wheezes Cardiac: Present Reg Rate and Rhythm GI: Present soft and normal bowel sounds; Absent distention or tenderness Extremities: Present normal inspection, full ROM and edema (2+ BLE to thighs) Skin: Present intact; Absent erythema Neuro: Present Grossly Intact, alert, awake and moves all extremities Assessment and Plan *Assessment and plan (1) Bacteremia: Status: Acute Category: Medical Code(s): R78.81 - Bacteremia (2) Physical deconditioning: Status: Inactive Category: Medical Code(s): R53.81 - Other malaise (3) Iron deficiency anemia: Status: Acute Category: Medical Code(s): D50.9 - Iron deficiency anemia, unspecified (4) Hyponatremia: Status: Acute Category: Medical Code(s): E87.1 - Hypo-osmolality and hyponatremia (5) Physical deconditioning: Status: Acute Category: Medical Code(s): R53.81 - Other malaise (6) CHF (congestive heart failure): Status: Acute Qualifiers: Heart failure chronicity: acute on chronic Heart failure type: unspecified Qualified Code(s): I50.9 - Heart failure, unspecified Category: Medical Code(s): I50.9 - Heart failure, unspecified (7) Diabetes mellitus: Problem Comment: type 2 non insulin dep Status: Inactive Qualifiers: Diabetes mellitus type: type 2 Diabetes mellitus complication status: with hyperglycemia Diabetes mellitus usp insulin use: with usp use Qualified Code(s): E11.65 - Type 2 diabetes mellitus with hyperglycemia Category: Medical Code(s): E11.9 - Type 2 diabetes mellitus without complications (8) Hypertension: Status: Inactive Qualifiers: Hypertension type: essential hypertension Qualified Code(s): I10 - Essential (primary) hypertension Category: Medical Code(s): I10 - Essential (primary) hypertension (9) Hyperlipidemia: Status: Inactive Qualifiers: Hyperlipidemia type: unspecified Qualified Code(s): E78.5 - Hyperlipidemia, unspecified Category: Medical Code(s): E78.5 - Hyperlipidemia, unspecified (10) Morbid obesity with BMI of 40.0-44.9, adult: Status: Inactive Category: Medical Code(s): E66.01 - Morbid (severe) obesity due to excess calories; Z68.41 - Body mass index [BMI] 40.0-44.9, adult Plan This is a 73-year-old female with PMHx of hypertension, hyperlipidemia, aortic stenosis, mitral valve regurgitation, CAD status post CABG, A-fib on Eliquis, CHF on 2.5 L nasal cannula, diabetes, COPD on nightly BiPAP, obese amongst many other things. Patient's family states that she has been on a decline for the past 2 days. on arrival, new set of lab was obtained. patient presented anemic, hyponatremic, Creatinine has been stable. Head to toe CT screening conducted due to c/o multiples falls at home and lumbar pain. Imaging reviewed. Discussed with ER. agreed for admission. Patient nataliia hemodynamically stable this morning. Repeat cultures pending. No signs of sepsis overnight. Patient is anemic, discussed transfusion today. Problems addressed as follows: -Bacteremia: -Deconditioning Patient had positive blood culture for E faecalis from last admission but had no clinical sign of infection. Given pathogen, unlikely nature of contaminant, patient was readmitted for IV antibiotics and repeat cultures. Repeat blood cultures pending. Continue IV vancomycin based on previous susceptibilities. Monitor cultures for at least 48 hours. If remain negative, anticipate patient had false positive/commensal contaminant. White cell count normal at 7.0. Therapy working with patient while admitted, PT and OT consulted Repeat CBC, CMP, magnesium ordered for the morning -Hyponatremia: likely secondary to diuresis plus poor intake. will given 1L to a very slow rate to avoid fluid overload monitor for other electrolytes imabalances repeat CMP in the morning Anemia: Iron studies show low levels of iron and ferritin. Will administer Venofer 200 mg IV x 1 today. Hemoglobin of 8. Would benefit from transfusion with hemoglobin threshold of less than 9 in the setting of history of CHF and CABG. Plan to transfuse 1 unit of blood today. -CHF: -History of CABG Hypertension/hyperlipidemia- Bumex 1 mg twice daily per home regimen. Bisoprolol 2.5 mg twice daily, Lipitor 40 mg nightly for cholesterol, Eliquis 5 mg twice daily, Holding in the setting of normal blood pressures -Diabetes insulin-dependent: With gastroparesis and neuropathy: Resume home regimen On gabapentin and hydrocodone Sliding scale is in the years takes ACHS Resume insulin detemir 30 units twice daily, monitor glucose for further Hypothyroid: Continue levothyroxine 50 mcg daily Morbid obesity with comorbidity: complicate all aspects of care. Diabetic diet Full code Eliquis
--- NOTE | 2023-09-02 13:41 | HMH.PTEV ---
Physical Therapy Evaluation Rehab PT IP Evaluation Start: 09/02/23 03:34 Freq: ONCE Status: Active Protocol: Document 09/02/23 13:31 PDESEROUX (Rec: 09/02/23 13:41 [email or web address] [id number]) Subjective/History History History Pt. is a 73 year old female who presents to [facility] 2nd floor Inpatient setting w/ a PMH of Hypertension, Hyperlipidemia, Aortic Stenosis, Mitral Valve Regurgitation, CAD status post CABG, A-fib on Eliquis, CHF w / 2.5 nasal cannula, diabetes, COPD. Pt. was called into the hospital for positive blood culture. Pt. reports she lives w/ her daughter and daughter' s son, but states requiring assistance at home w/ ADLs that has been progressively getting worse d/t an increase in generalized weakness. Pt. reports ambulating w/ a walker at home. Pt. reports having multiple falls at home secondary to the increase in overall weakness and fatigue. Subjective Subjective Pt. was supine in hospital bed and stating, help I'm going to fall out of the bed upon entry into pt.'s room this date. Pt. reports having an increase in BLE buttock P!. Pt . was left back in the supine position in hospital bed upon exit pt.'s room w/ Nursing staff assisting pt. New diagnosis of cancer in past 12 No months? Rehab PT IP Eval Objective Appearance Patient Behavior Anxious,Crying,Restless, Fatigued,Impulsive Patient Orientation Birthday Difficulty following instructions none Speech Pattern Patient Baseline Ambulation Patient Able to Ambulate No Balance Ability to Arise Able, uses arms to help Sitting Balance Steady, safe Standing Balance Steady, wide stance Dynamic Sitting Balance Ability Fair Dynamic Standing Balance Ability Fair Transfers Bed Transfer Ability Moderate x 1 (50% assist) Sit to Stand Bed Transfer Ability Moderate x 1 (50% assist) Pain coccyx Pain Intensity 5 ROM RLE PT ROM Status ABN LLE PT ROM Status ABN MMT RLE PT MMT ABN Abnormal MMT Grade 4-/5 LLE PT MMT ABN Abnormal MMT Grade 4-/5 Rehab PT IP prob,goals,plan Problems Date of Evaluation: 09/02/23 PT IP Problems Bed Mobility,Transfers,Gait, Balance,Safety Rehab Potential Rehab Potential Good Equipment Needs Assistive Devices Standard Walker,Rolling / Wheeled Walker Plan PT Intervention Plan Bed Mobility,Transfers,Gait, Balance,Safety,Therapeutic Exercise PT Plan Frequency BID Duration LOS Discharge Goals Bed Transfer Ability Minimal x 1 (25% assist) Sit to Stand Chair Transfer Ability Minimal x 1 (25% assist) Ambulation Assistive Device Standard Walker,Rolling Walker Ambulation Distance (feet) 10 Discharge Plan PT Discharge Plan Upon discharge from [facility], once medically stable per MD, pt. most appropriate to be discharged to a SNF d/t current level to promote and improve overall generalized conditioning, endurance, and strength to further improve on current status w/ ADLs and caregivers at home. Eval Complexity Eval Charge Codes 04050 - Low Complexity PHYSICIAN CERTIFICATION: I certify the specified therapy services for Shilpa Armas are required, authorized, and reviewed every 30 days.
[2023-09-02] MEDS: BUMETANIDE 1 MG TABLET PO (14:45)
[2023-09-02 17:54] LABS: POC Glucose,Bedside 198 (70-110)
[2023-09-02] MEDS: BUSPIRONE HCL 5 MG TABLET PO (22:11)
[2023-09-02 22:28] LABS: POC Glucose,Bedside 161 (70-110)
[2023-09-02] MEDS: VANCOMYCIN HCL 2,000 MG in 0.9 % SODIUM CHLORIDE 250 ML 125 MG IV (23:08)
[2023-09-03] MEDS: MORPHINE 2MG/ML SYRINGE 2 MG IV ×3 (03:05→23:13)
[2023-09-03 04:00] VITALS: BP 134/62; PULSE 91; RESP 18; TEMP 36.6; O2SAT 97; BMI 41.2
[2023-09-03 06:10] VITALS: O2SAT 90
[2023-09-03] MEDS: FLUTICASONE/SALMETEROL 250/50MCG DISKUS 1 PUFF IH (06:10)
[2023-09-03] MEDS: LEVOTHYROXINE 50MCG (0.05MG) TAB 50 MCG PO (06:32)
[2023-09-03 06:48] LABS: POC Glucose,Bedside 154 (70-110)
--- NOTE | 2023-09-03 07:51 | EXP.ACUTE.PN ---
Subjective *Date: 09/03/23 *Time: 13:19 Interval history: Patient tolerating room air this morning, or 2 L oxygen while asleep. Labs remained stable. Tolerating p.o. intake. No fever or hypotension. Continue to await blood cultures. Necessitating significant assistance with ADLs. Therapy note from yesterday reviewed, recommends placement. Medical Exam Vital signs and Labs for Last 24 Hours: Vital Signs Temp Pulse Pulse Resp BP BP Pulse Ox 09/03/23 07:00 09/03/23 06:10 90 L 09/02/23 21:00 98.3 F 98 H 20 155/60 H 93 L 09/03/23 05:00 09/03/23 04:00 97.8 F 91 H 18 134/62 97 09/03/23 03:00 09/03/23 01:00 09/02/23 23:00 09/02/23 21:00 09/02/23 22:00 09/02/23 19:54 103 H 20 169/77 H 92 L 09/02/23 19:34 98.5 F 103 H 20 162/75 H 93 L 09/02/23 18:59 09/02/23 18:10 98.4 F 73 19 165/89 H 95 09/02/23 17:55 98.7 F 80 19 149/79 H 93 L 09/02/23 17:40 98.3 F 78 19 137/84 93 L 09/02/23 17:25 98.1 F 86 19 135/60 92 L 09/02/23 17:20 98.2 F 83 19 150/96 H 91 L 09/02/23 17:15 98.4 F 89 18 182/85 H 93 L 09/02/23 17:10 98.2 F 82 18 173/75 H 93 L 09/02/23 17:00 09/02/23 15:00 09/02/23 17:05 97.8 F 74 18 155/77 H 95 09/02/23 16:00 98.1 F 100 H 20 137/65 92 L 09/02/23 08:00 09/02/23 13:00 09/02/23 11:00 09/02/23 09:00 09/02/23 08:00 97.9 F 89 19 121/72 98 O2 Del Method O2 Flow Rate 09/03/23 07:00 Nasal Cannula 2 09/03/23 06:10 Room Air 09/02/23 21:00 Room Air 09/03/23 05:00 Nasal Cannula 2 09/03/23 04:00 Nasal Cannula 2 09/03/23 03:00 Nasal Cannula 2 09/03/23 01:00 Nasal Cannula 2 09/02/23 23:00 Nasal Cannula 2 09/02/23 21:00 Nasal Cannula 2 09/02/23 22:00 Room Air 09/02/23 19:54 Room Air 09/02/23 19:34 Room Air 09/02/23 18:59 Room Air 09/02/23 18:10 09/02/23 17:55 09/02/23 17:40 09/02/23 17:25 09/02/23 17:20 09/02/23 17:15 09/02/23 17:10 09/02/23 17:00 Room Air 09/02/23 15:00 Room Air 09/02/23 17:05 09/02/23 16:00 Room Air 09/02/23 08:00 Nasal Cannula 2 09/02/23 13:00 Room Air 09/02/23 11:00 Nasal Cannula 2 09/02/23 09:00 Nasal Cannula 2 09/02/23 08:00 Nasal Cannula Intake and Output 09/02/23 09/02/23 09/03/23 15:59 23:59 07:59 Intake Total 360 / 1517 60 / 1517 Output Total 2200 / 4000 0 / 4000 500 / 500 Balance -1840 / -2483 60 / -2483 -500 / -500 Intake: Intake, Oral Amount 360 / 660 60 / 660 Intake (Blood Product) Amt 0 / 0 Red Blood Cells Unit 0 / 0 [id number] Output: Output, Urine Amount 2200 / 4000 0 / 4000 500 / 500 Other: Number of Voids 0 0 Number of Unmeasured Voids 0 1 0 Number of Bowel Movements 1 1 Weight 113.455 kg 112.207 kg Patient Weight 09/03/23 23:59 Weight 112.207 kg Laboratory Results - last 24 hr 09/02/23 06:27: WBC 7.0 D, RBC 3.64 L, Hgb 8.1 L, Hct 24.8 L, MCV 68.1 L, MCH 22.3 L, MCHC 32.8, RDW 20.0 H, Plt Count 274, MPV 7.4, Neut % (Auto) 71.2, Lymph % (Auto) 20.5, [place] % (Auto) 5.4, Eos % (Auto) 2.6, Baso % (Auto) 0.4, Neut # (Auto) 5.0, Lymph # (Auto) 1.4, [place] # (Auto) 0.4, Eos # (Auto) 0.2, Baso # (Auto) 0.0, Iron 31 L, TIBC 334, Iron Saturation 9.32951 L, Ferritin 44.9, NT-Pro-B Natriuret Pep 309 H, Blood Type Confirm A Positive 09/02/23 09:21: POC Glucose 151 H 09/02/23 11:29: POC Glucose 151 H 09/02/23 15:20: Blood Type A Positive, Antibody Screen Negative, Crossmatch (AHG) See Detail 09/02/23 15:51: POC Glucose 198 H 09/02/23 21:18: POC Glucose 161 H 09/03/23 06:30: POC Glucose 154 H I & O for Labs for Last 24 Hours: Intake & Output 08/31/23 09/01/23 09/02/23 09/03/23 23:59 23:59 23:59 23:59 Intake Total 1517 / 1517 Output Total 4000 / 4000 500 / 500 Balance -2483 / -2483 -500 / -500 Weight 113.398 kg 113.455 kg 112.207 kg Constitutional: Present no acute distress, morbidly obese, chronically ill appearing and cooperative Head: Present atraumatic and normocephalic ENT: Present normal exam Comment:: cushingoid facies Respiratory: Present crackles, distant breath sounds, diminished air movement and normal respiratory effort; Absent rhonchi or wheezes Cardiac: Present Reg Rate and Rhythm GI: Present soft and normal bowel sounds; Absent distention or tenderness Extremities: Present normal inspection, full ROM and edema (2+ BLE to thighs) Skin: Present intact; Absent erythema Neuro: Present Grossly Intact, alert, awake and moves all extremities Assessment and Plan *Assessment and plan (1) Bacteremia: Status: Acute Category: Medical Code(s): R78.81 - Bacteremia (2) Physical deconditioning: Status: Inactive Category: Medical Code(s): R53.81 - Other malaise (3) Iron deficiency anemia: Status: Acute Category: Medical Code(s): D50.9 - Iron deficiency anemia, unspecified (4) Hyponatremia: Status: Acute Category: Medical Code(s): E87.1 - Hypo-osmolality and hyponatremia (5) Physical deconditioning: Status: Acute Category: Medical Code(s): R53.81 - Other malaise (6) CHF (congestive heart failure): Status: Acute Qualifiers: Heart failure chronicity: acute on chronic Heart failure type: unspecified Qualified Code(s): I50.9 - Heart failure, unspecified Category: Medical Code(s): I50.9 - Heart failure, unspecified (7) Diabetes mellitus: Problem Comment: type 2 non insulin dep Status: Inactive Qualifiers: Diabetes mellitus type: type 2 Diabetes mellitus complication status: with hyperglycemia Diabetes mellitus long term care social worker insulin use: with long term care social worker use Qualified Code(s): E11.65 - Type 2 diabetes mellitus with hyperglycemia Category: Medical Code(s): E11.9 - Type 2 diabetes mellitus without complications (8) Hypertension: Status: Inactive Qualifiers: Hypertension type: essential hypertension Qualified Code(s): I10 - Essential (primary) hypertension Category: Medical Code(s): I10 - Essential (primary) hypertension (9) Hyperlipidemia: Status: Inactive Qualifiers: Hyperlipidemia type: unspecified Qualified Code(s): E78.5 - Hyperlipidemia, unspecified Category: Medical Code(s): E78.5 - Hyperlipidemia, unspecified (10) Morbid obesity with BMI of 40.0-44.9, adult: Status: Inactive Category: Medical Code(s): E66.01 - Morbid (severe) obesity due to excess calories; Z68.41 - Body mass index [BMI] 40.0-44.9, adult Plan This is a 73-year-old female with PMHx of hypertension, hyperlipidemia, aortic stenosis, mitral valve regurgitation, CAD status post CABG, A-fib on Eliquis, CHF on 2.5 L nasal cannula, diabetes, COPD on nightly BiPAP, obese amongst many other things. Patient's family states that she has been on a decline for the past 2 days. on arrival, new set of lab was obtained. patient presented anemic, hyponatremic, Creatinine has been stable. Head to toe CT screening conducted due to c/o multiples falls at home and lumbar pain. Imaging reviewed. Discussed with ER. agreed for admission. Patient nataliia hemodynamically stable this morning. Repeat cultures pending. No signs of sepsis overnight. Responded well to transfusion. Hemoglobin better. Awaiting referral for rehab and further goals of care discussion with family. Anticipate discharge in the next day or 2. Awaiting cultures to be negative at 48 hours. Problems addressed as follows: -Bacteremia: -Deconditioning Patient had positive blood culture for E faecalis from last admission but had no clinical sign of infection. Given pathogen, unlikely nature of contaminant, patient was readmitted for IV antibiotics and repeat cultures. Repeat blood cultures pending. Continue IV vancomycin based on previous susceptibilities. Monitor cultures for at least 48 hours. If remain negative, anticipate patient had false positive/commensal contaminant. White cell count normal at 8.2. Therapy working with patient while admitted, PT and OT consulted. Discussed case with PT, recommend SNF placement given debility and significant necessity for ADLs Repeat CBC, CMP, magnesium ordered for the morning -Hyponatremia: Resolved, sodium 142 this morning likely secondary to diuresis plus poor intake. monitor for other electrolytes imabalances repeat CMP in the morning Anemia: Iron studies show low levels of iron and ferritin. Administered Venofer yesterday. Status post 1 unit blood transfusion. Hemoglobin 9.6 this morning. No active signs of bleeding. Transfusion threshold hemoglobin less than 9 in the setting of history of CHF and CABG. would benefit from Venofer course as an outpatient -CHF: -History of CABG Hypertension/hyperlipidemia- Bumex 1 mg twice daily per home regimen. Bisoprolol 2.5 mg twice daily, Lipitor 40 mg nightly for cholesterol, Eliquis 5 mg twice daily, -Diabetes insulin-dependent: With gastroparesis and neuropathy: On gabapentin and hydrocodone at home. Continue hydrocodone. Holding gabapentin. Patient's pain appears to be stable. Concern for oversedation from polypharmacy in the outpatient setting Sliding scale insulin, fingersticks ACHS Resume insulin detemir 30 units twice daily, monitor glucose for further Hypothyroid: Continue levothyroxine 50 mcg daily Morbid obesity with comorbidity: complicate all aspects of care. Diabetic diet Full code Eliquis
[2023-09-03 08:00] VITALS: BP 143/78; PULSE 102; RESP 20; TEMP 36.4; O2SAT 97
[2023-09-03 08:36] LABS: MANUAL DIFFERENTIAL MANUAL DIFFERENTIAL (MANUAL DIFF)
[2023-09-03 08:39] LABS: Basophils % 0.2 % (0.1-2.0); Eosinophils # 0.1 K/mm3 (0.0-0.4); Eosinophils % 1.4 % (0.1-12.0); Hematocrit 29.3 % (37.0-47.0); Hemoglobin 9.6 g/dL (12.2-16.2); Lymphocytes # 1.6 K/mm3 (0.7-4.5); Lymphocytes % 19.8 % (10-50); Mean Corpuscular HGB Conc 32.6 g/dL (31.8-35.4); Mean Corpuscular Hemoglobin 22.9 pg (27.0-31.2); Mean Corpuscular Volume 70.1 fl (81-99); Mean Platelet Volume 7.7 fl (7.4-10.4); Monocytes # 0.5 K/mm3 (0.1-1.0); Monocytes % 5.8 % (1.7-9.3); Neutrophils % 72.7 % (37.0-80.0); Platelet Count 294 K/mm3 (142-424); Red Blood Count 4.17 M/mm3 (4.20-5.40); Red Cell Distribution Width 20.6 % (11.5-17.5); White Blood Count 8.2 K/mm3 (4.8-10.8)
[2023-09-03] MEDS: ASCORBIC ACID 500MG TAB 500 MG PO (08:46)
[2023-09-03] MEDS: CITALOPRAM 40MG TABLET 40 MG PO (08:46)
[2023-09-03] MEDS: BUMETANIDE 1 MG TABLET PO ×2 (08:46→15:06)
[2023-09-03] MEDS: APIXABAN 5MG TABLET 5 MG PO ×2 (08:46→21:35)
[2023-09-03] MEDS: CLOPIDOGREL 75MG TAB 75 MG PO (08:46)
[2023-09-03] MEDS: INSULIN DETEMIR 100 UNIT/ML 3ML FLEXPEN 30 UNIT SQ ×2 (08:47→21:37)
[2023-09-03 08:50] LABS: Anion Gap 9.9 mEq/L (5-15); Blood Urea Nitrogen 26 mg/dl (7-17); Calcium 9.4 mg/dl (8.4-10.2); Carbon Dioxide 28 mmol/L (22.0-30.0); Chloride 108 mmol/L (98-107); Creatinine Clearance Estimated 43 mL/min (50-200); Estimated Glomerular Filt Rate 82 ml/min (>60); GFR (African American) 99 ML/MIN (>60); Glucose 144 mg/dl (74-100); Potassium 3.9 mmoL/L (3.5-5.1); Sodium 142 mmol/L (136-145)
[2023-09-03 09:00] LABS: POC Glucose,Bedside 163 (70-110)
[2023-09-03 09:39] LABS: Lymphocytes % 18 % (10-50); Monocytes % 5 % (2-9); Neutrophils % 77 % (42-76); Total Cells Counted 100
[2023-09-03 09:40] LABS: Hypochromasia 1+; Platelet Estimate Normal
[2023-09-03] MEDS: ONDANSETRON 4MG/2ML VIAL 4 MG IV (15:05)
[2023-09-03 16:00] VITALS: BP 164/77; PULSE 89; RESP 22; TEMP 36.6; O2SAT 97
[2023-09-03 20:00] VITALS: BP 147/68; PULSE 85; RESP 18; TEMP 36.6; O2SAT 98
[2023-09-03 20:16] VITALS: BMI 41.2
[2023-09-03] MEDS: ATORVASTATIN 40MG TABLET 40 MG PO (21:35)
[2023-09-03] MEDS: BUSPIRONE HCL 5 MG TABLET PO (21:36)
[2023-09-03] MEDS: BISOPROLOL 5MG TABLET 2.5 MG PO (21:36)
[2023-09-03 22:01] LABS: POC Glucose,Bedside 183 (70-110)
[2023-09-03] MEDS: VANCOMYCIN HCL 2,000 MG in 0.9 % SODIUM CHLORIDE 250 ML 125 MG IV (23:14)
[2023-09-04 04:00] VITALS: BP 131/82; PULSE 69; TEMP 36.6; O2SAT 96; BMI 41.2
[2023-09-04] MEDS: FLUTICASONE/SALMETEROL 250/50MCG DISKUS 1 PUFF IH ×2 (05:48→18:09)
[2023-09-04 05:49] VITALS: O2SAT 97
[2023-09-04 06:07] LABS: POC Glucose,Bedside 125 (70-110)
[2023-09-04] MEDS: ONDANSETRON 4MG/2ML VIAL 4 MG IV (06:28)
[2023-09-04] MEDS: LEVOTHYROXINE 50MCG (0.05MG) TAB 50 MCG PO (06:29)
[2023-09-04 07:09] LABS: MANUAL DIFFERENTIAL MANUAL DIFFERENTIAL (MANUAL DIFF)
[2023-09-04 07:12] LABS: Basophils % 0.2 % (0.1-2.0); Eosinophils # 0.2 K/mm3 (0.0-0.4); Eosinophils % 1.7 % (0.1-12.0); Hematocrit 29.4 % (37.0-47.0); Hemoglobin 9.6 g/dL (12.2-16.2); Lymphocytes # 1.9 K/mm3 (0.7-4.5); Lymphocytes % 17.7 % (10-50); Mean Corpuscular HGB Conc 32.5 g/dL (31.8-35.4); Mean Corpuscular Hemoglobin 22.7 pg (27.0-31.2); Mean Corpuscular Volume 69.9 fl (81-99); Mean Platelet Volume 7.9 fl (7.4-10.4); Monocytes # 0.6 K/mm3 (0.1-1.0); Monocytes % 5.2 % (1.7-9.3); Neutrophils # 8.2 K/mm3 (1.8-7.8); Neutrophils % 75.2 % (37.0-80.0); Platelet Count 290 K/mm3 (142-424); Red Cell Distribution Width 20.7 % (11.5-17.5); White Blood Count 10.9 K/mm3 (4.8-10.8)
--- NOTE | 2023-09-04 07:43 | P.PN_ITS ---
Subjective *Date: 09/04/23 *Time: 14:27 Interval history: Patient feeling better today. Sitting in bedside chair. On room air. Tolerating p.o. intake. Nursing remarks that she is better today than she has been in the past 2 days. Denies any chest pain. Does complain of some mild discomfort in her bottom while sitting in the chair. No nausea or vomiting. Medical Exam Vital signs and Labs for Last 24 Hours: Vital Signs Temp Pulse Pulse Resp BP Pulse Ox O2 Del Method 09/04/23 07:00 Nasal Cannula 09/04/23 04:00 97.9 F 69 131/82 96 Nasal Cannula 09/04/23 05:49 97 Nasal Cannula 09/04/23 05:00 Nasal Cannula 09/04/23 03:00 Nasal Cannula 09/04/23 01:00 Nasal Cannula 09/03/23 23:00 Nasal Cannula 09/03/23 21:00 Nasal Cannula 09/03/23 21:30 Nasal Cannula 09/03/23 20:00 97.9 F 85 18 147/68 H 98 Nasal Cannula 09/03/23 16:00 97.9 F 89 22 164/77 H 97 Nasal Cannula 09/03/23 18:49 Nasal Cannula 09/03/23 17:00 Nasal Cannula 09/03/23 15:00 Nasal Cannula 09/03/23 12:53 Nasal Cannula 09/03/23 11:00 Nasal Cannula 09/03/23 09:00 Nasal Cannula 09/03/23 08:00 Nasal Cannula 09/03/23 08:00 97.6 F 102 H 20 143/78 H 97 Nasal Cannula O2 Flow Rate 09/04/23 07:00 2 09/04/23 04:00 2 09/04/23 05:49 2 09/04/23 05:00 2 09/04/23 03:00 2 09/04/23 01:00 2 09/03/23 23:00 2 09/03/23 21:00 2 09/03/23 21:30 2 09/03/23 20:00 2 09/03/23 16:00 09/03/23 18:49 2 09/03/23 17:00 2 09/03/23 15:00 2 09/03/23 12:53 2 09/03/23 11:00 2 09/03/23 09:00 2 09/03/23 08:00 2 09/03/23 08:00 Intake and Output 09/03/23 09/03/23 09/04/23 15:59 23:59 07:59 Intake Total 390 / 660 270 / 660 Output Total 0 / 1700 1200 / 1700 0 / 0 Balance 390 / -1040 -930 / -1040 0 / 0 Intake: Intake, Oral Amount 390 / 660 270 / 660 Output: Output, Urine Amount 0 / 1700 1200 / 1700 0 / 0 Other: Number of Voids 0 0 Number of Unmeasured Voids 1 1 Weight 112.207 kg 112.207 kg Patient Weight 09/04/23 23:59 Weight 112.207 kg Laboratory Results - last 24 hr 09/03/23 07:50: WBC 8.2, RBC 4.17 L, Hgb 9.6 L, Hct 29.3 L, MCV 70.1 L, MCH 22.9 L, MCHC 32.6, RDW 20.6 H, Plt Count 294, MPV 7.7, Neut % (Auto) 72.7, Lymph % (Auto) 19.8, [place] % (Auto) 5.8, Eos % (Auto) 1.4, Baso % (Auto) 0.2, Neut # (Auto) 6.0, Lymph # (Auto) 1.6, [place] # (Auto) 0.5, Eos # (Auto) 0.1, Baso # (Auto) 0.0, Total Counted 100, Neutrophils % (Manual) 77 H, Lymphocytes % (Manual) 18, Monocytes % (Manual) 5, Platelet Estimate Normal, Hypochromasia 1+, Sodium 142, Potassium 3.9, Chloride 108 H, Carbon Dioxide 28, Anion Gap 9.9, BUN 26 H D, Creatinine 0.70 D, Estimated Creat Clear 43, Estimated GFR 82, Est GFR ( Amer) 99 D, Glucose 144 H, Calcium 9.4 09/03/23 08:47: POC Glucose 163 H 09/03/23 21:33: POC Glucose 183 H 09/04/23 05:58: POC Glucose 125 H 09/04/23 06:14: WBC 10.9 H D, RBC 4.20, Hgb 9.6 L, Hct 29.4 L, MCV 69.9 L, MCH 22.7 L, MCHC 32.5, RDW 20.7 H, Plt Count 290, MPV 7.9, Neut % (Auto) 75.2, Lymph % (Auto) 17.7, [place] % (Auto) 5.2, Eos % (Auto) 1.7, Baso % (Auto) 0.2, Neut # (Auto) 8.2 H, Lymph # (Auto) 1.9, [place] # (Auto) 0.6, Eos # (Auto) 0.2, Baso # (Auto) 0.0 I & O for Labs for Last 24 Hours: Intake & Output 09/01/23 09/02/23 09/03/23 09/04/23 23:59 23:59 23:59 23:59 Intake Total 1517 / 1517 660 / 660 Output Total 4000 / 4000 1700 / 1700 0 / 0 Balance -2483 / -2483 -1040 / -1040 0 / 0 Weight 113.398 kg 113.455 kg 112.207 kg 112.207 kg Microbiology Reports for the Last 24 Hours: Microbiology 09/02/23 00:03 Blood Blood Culture - Preliminary 09/01/23 23:08 Blood Blood Culture - Preliminary Constitutional: Present no acute distress, morbidly obese, chronically ill appearing and cooperative Head: Present atraumatic and normocephalic ENT: Present normal exam Comment:: cushingoid facies Respiratory: Present crackles, distant breath sounds, diminished air movement and normal respiratory effort; Absent rhonchi or wheezes Cardiac: Present Reg Rate and Rhythm GI: Present soft and normal bowel sounds; Absent distention or tenderness Extremities: Present normal inspection, full ROM and edema (2+ BLE to thighs) Skin: Present intact; Absent erythema Neuro: Present Grossly Intact, alert, awake and moves all extremities Assessment and Plan *Assessment and plan (1) Bacteremia: Status: Acute Category: Medical Code(s): R78.81 - Bacteremia (2) Physical deconditioning: Status: Inactive Category: Medical Code(s): R53.81 - Other malaise (3) Iron deficiency anemia: Status: Acute Category: Medical Code(s): D50.9 - Iron deficiency anemia, unspecified (4) Hyponatremia: Status: Acute Category: Medical Code(s): E87.1 - Hypo-osmolality and hyponatremia (5) Physical deconditioning: Status: Acute Category: Medical Code(s): R53.81 - Other malaise (6) CHF (congestive heart failure): Status: Acute Qualifiers: Heart failure chronicity: acute on chronic Heart failure type: unspecified Qualified Code(s): I50.9 - Heart failure, unspecified Category: Medical Code(s): I50.9 - Heart failure, unspecified (7) Diabetes mellitus: Problem Comment: type 2 non insulin dep Status: Inactive Qualifiers: Diabetes mellitus type: type 2 Diabetes mellitus complication status: with hyperglycemia Diabetes mellitus mcfp insulin use: with long filler cigar roller machine use Qualified Code(s): E11.65 - Type 2 diabetes mellitus with hyperglycemia Category: Medical Code(s): E11.9 - Type 2 diabetes mellitus without complications (8) Hypertension: Status: Inactive Qualifiers: Hypertension type: essential hypertension Qualified Code(s): I10 - Essential (primary) hypertension Category: Medical Code(s): I10 - Essential (primary) hypertension (9) Hyperlipidemia: Status: Inactive Qualifiers: Hyperlipidemia type: unspecified Qualified Code(s): E78.5 - Hyperlipidemia, unspecified Category: Medical Code(s): E78.5 - Hyperlipidemia, unspecified (10) Morbid obesity with BMI of 40.0-44.9, adult: Status: Inactive Category: Medical Code(s): E66.01 - Morbid (severe) obesity due to excess calories; Z68.41 - Body mass index [BMI] 40.0-44.9, adult Plan This is a 73-year-old female with PMHx of hypertension, hyperlipidemia, aortic stenosis, mitral valve regurgitation, CAD status post CABG, A-fib on Eliquis, CHF on 2.5 L nasal cannula, diabetes, COPD on nightly BiPAP, obese amongst many other things. Patient's family states that she has been on a decline for the past 2 days. on arrival, new set of lab was obtained. patient presented anemic, hyponatremic, Creatinine has been stable. Head to toe CT screening conducted due to c/o multiples falls at home and lumbar pain. Imaging reviewed. Discussed with ER. agreed for admission. Patient nataliia hemodynamically stable this morning. Repeat cultures positive for gram-positive cocci. Awaiting speciation and sensitivity. Clinically improving. Repeat blood cultures ordered for today. Will need cultures negative at 48 hours to plan for appropriate discharge course, continues to require inpatient management. Problems addressed as follows: -Bacteremia: -Deconditioning Patient had positive blood culture for E faecalis from last admission but had no clinical sign of infection. Repeat blood cultures positive for gram-positive cocci. Continuing vancomycin at this time. Patient is clinically improving. -White cell count normal at 10.9. Afebrile. No hemodynamic instability. Weaned to room air today. -Continue IV vancomycin, monitoring for toxicity. If repeat cultures negative at 48 hours, anticipate PICC line placement and plan for at least 2 weeks of IV antibiotics. - therapy working with patient while admitted, PT and OT consulted. Discussed case with PT, recommend SNF placement given debility and significant necessity for ADLs - Repeat CBC, CMP, magnesium ordered for the morning -Uncertain source of bacteremia. Echo ordered to evaluate for endocarditis. -Hyponatremia: Resolved, sodium 138 this morning Anemia: Iron studies show low levels of iron and ferritin. Administered Venofer 09/02. Status post 1 unit blood transfusion. Hemoglobin 10.2 this morning. No active signs of bleeding. Transfusion threshold hemoglobin less than 9 in the setting of history of CHF and CABG. would benefit from Venofer course as an outpatient -CHF: -History of CABG Hypertension/hyperlipidemia- Bumex 1 mg twice daily per home regimen. Bisoprolol 2.5 mg twice daily, Lipitor 40 mg nightly for cholesterol, Eliquis 5 mg twice daily, -Diabetes insulin-dependent: With gastroparesis and neuropathy: On gabapentin and hydrocodone at home. Continue hydrocodone. Holding gabapentin. Patient's pain appears to be stable. Concern for oversedation from polypharmacy in the outpatient setting Sliding scale insulin, fingersticks ACHS Resume insulin detemir 30 units twice daily, monitor glucose for further adjustment, morning glucose 112 Hypothyroid: Continue levothyroxine 50 mcg daily Morbid obesity with comorbidity: complicates all aspects of care. Diabetic diet Full code Eliquis
[2023-09-04 08:00] VITALS: BP 131/77; PULSE 73; RESP 20; TEMP 36.8; O2SAT 96
[2023-09-04 08:32] LABS: Chloride 105 mmol/L (98-107); Sodium 138 mmol/L (136-145)
[2023-09-04 08:33] LABS: Potassium 3.9 mmoL/L (3.5-5.1)
[2023-09-04 08:35] LABS: Blood Urea Nitrogen 23 mg/dl (7-17); Creatinine Clearance Estimated 43 mL/min (50-200); Estimated Glomerular Filt Rate 70 ml/min (>60); GFR (African American) 85 ML/MIN (>60)
[2023-09-04 08:36] LABS: Anion Gap 4.9 mEq/L (5-15); Calcium 9.2 mg/dl (8.4-10.2); Carbon Dioxide 32 mmol/L (22.0-30.0); Glucose 112 mg/dl (74-100)
--- NOTE | 2023-09-04 09:02 | DIET.NUTRFU ---
Nutrition consult received for pt poor appetite. Glucerna changed from BID to TID. Will follow up with pt after she has a chance to try supplements. Pt food preferences have been obtained to send on trays. Dietary to work with pt when filling out menus to try and ensure pt receives preferences. Pt reported enjoying chocolate pudding, jello, corn dogs, milk, sherbet, and fruit. Glucose 112 this am. Will continue to monitor and work with pt/Dietary on PO intake.
[2023-09-04] MEDS: BUMETANIDE 1 MG TABLET PO ×2 (09:22→15:04)
[2023-09-04] MEDS: ASCORBIC ACID 500MG TAB 500 MG PO (09:22)
[2023-09-04] MEDS: CITALOPRAM 40MG TABLET 40 MG PO (09:22)
[2023-09-04] MEDS: CLOPIDOGREL 75MG TAB 75 MG PO (09:22)
[2023-09-04] MEDS: POLYETHYLENE GLYCOL 3350 17 GM PACKET PO (09:24)
[2023-09-04] MEDS: APIXABAN 5MG TABLET 5 MG PO ×2 (09:26→21:39)
--- NOTE | 2023-09-04 10:01 | HMH.OTEV ---
OT Inpatient Evaluation Rehab OT IP Evaluation Start: 09/02/23 03:34 Freq: ONCE Status: Active Protocol: Document 09/04/23 09:06 GURDEEPTONNY (Rec: 09/04/23 09:09 CASIEVIRGIE [id number]) Rehab OT IP Assessment Subjective History This is a 73-year-old female with PMHx of hypertension, hyperlipidemia, aortic stenosis, mitral valve regurgitation, CAD status post CABG, A-fib on Eliquis, CHF on 2.5 L nasal cannula, diabetes, COPD on nightly BiPAP, obese amongst many other things. Patient was hospitalized for CHF exacerbation and recently discharged home. Patient was called in for positive blood culture. Patient stated she was feeling better at the time of discharge that has been felling general weakness and malaise since 2 days ago. Per patient's daugther she is increasingly deteriorating and current unable to perform her daily ADLs. Daughter reported multiple assisted falls with now lumbar pain. Of note, they refused to go to group home . Patient denies fevers, chills, nausea, vomiting. Admitted for treatment and management. Patient lives with son and dtr in law in 1 story home with 1 DAVID. Used a RW to ambulate within home. hx of falling. Subjective I can sit up. Instructed Patient on completing bed mobility from supine->sit @ EOB->stand with usage of RW->SPT to recliner requiring Min A x2. Left patient sitting upright in chair with needs met. Objective Patient Orientation Person,Place,Time,Birthday, Month Right Upper Extremity Gross ROM WFL Left Upper Extremity Gross ROM WFL Bed Mobility bed mobility - supine/sit Assist Level Minimal x 2 (25% assist) Transfer Training Sit/Stand/Pivot Transfer Assist Level Minimal x 2 (25% assist) Chair Transfer Ability Minimal x 2 (25% assist) Chair Transfer Technique Sit to/from Ambulatory Chair Transfer Assistive Devices Rolling Walker Lower Body Dressing Ability Maximum Assistance Rehab OT IP prob,goals,plan Problems Date of Evaluation: 09/04/23 OT IP Problems Bed Mobility,Transfers,Gait, Balance,Self care,Safety Rehab Potential Rehab Potential Good Equipment Needs Assistive Devices Rolling / Wheeled Walker Plan OT intervention Plan Bed Mobility,Transfers,Balance ,Self care,Safety,Therapeutic Exercise OT Plan Frequency Daily Duration LOS Discharge Goals Bed Mobility Ability Assistance x1 Sit to Stand Chair Transfer Ability Minimal x 1 (25% assist) Chair Transfer Ability Minimal x 1 (25% assist) Chair Transfer Technique Sit to/from Ambulatory Chair Transfer Assistive Devices Rolling Walker Discharge Plan OT Discharge Plan Recommend placement at this time in order to improve independence with ADLs and fx' l mobility. However if patient is unable to participate in tasks, recommend HH services. Eval Complexity Eval Charge Codes 52190 - Low Complexity PHYSICIAN CERTIFICATION: I certify the specified therapy services for Shilpa Armas are required, authorized, and reviewed every 30 days.
--- NOTE | 2023-09-04 11:54 | SW/DCPLANNER ---
Addendum entered by Maria Elena Coles 09/06/23 09:32: Per Dr Mendoza patient is medically stable for discharge today. I have updated patient and Yisel buckley/ [facility] regarding discharge. Addendum entered by Maria Elena Coles 09/04/23 15:38: Per Yisel this patient has been approved SNF level of care. Addendum entered by Maria Elena Coles 09/04/23 13:08: Yisel buckley/ BRENDAF stated that she will start precert for this patient. Original Note: I spoke w/ patient regarding discharge plans. PT/OT evaluated patient today and recommended SNF level of care. Per MD patient will need IV antibiotics at time of discharge as well. Patient is agreeable to placement and prefer that I call and speak w/ her family that she lives w/: I called and spoke w/ daughter in law Baxter and they prefer [facility]. Patient information will be faxed to Yisel buckley/ [facility] today. I will follow up w/ Yisel once information is reviewed. Discharge date is unknown at this time.
[2023-09-04 12:02] LABS: POC Glucose,Bedside 169 (70-110)
[2023-09-04 13:03] LABS: Eosinophils % 1 % (0-3); Lymphocytes % 18 % (10-50); Monocytes % 3 % (2-9); Neutrophils % 74 % (42-76); Total Cells Counted 100
[2023-09-04 13:04] LABS: Anisocytosis 1+; Platelet Estimate Normal
[2023-09-04 13:05] LABS: Burr Cells 1+; Poikilocytosis 1+
[2023-09-04 13:06] LABS: Hypochromasia 1+; Microcytosis 2+; Spherocytes 1+
--- NOTE | 2023-09-04 14:28 | CA_ITS ---
APPROVED REPORT EXAM: Comprehensive 2D, Doppler, and color-flow Echocardiogram Medical Artist: Adilia Ang RVT Ht: 5 ft 4 in Wt: 247lbs BSA: 2.14 BP: 143/78 mmHg Indications: BACTEREMIA,CHF,ANEMIA,MS,,A-FIB,CAD,CABG,DM,HTN,COPD,HLD,OBESITY VERY TDS-PT NOT COOPERATIVE,BEST WINDOWS 2D Dimensions LA Volume 84.50 mL LA Volume Index 39.49 mL/m2 (M/F) 16-34 M-Mode Dimensions RVDd 4.51 cm (0.9-2.6) LA Diam 5.24 cm (1.9-4.0) LVDd 4.60 cm (3.5-5.7) LVDs 2.45 cm (3.5-5.7) IVSd 0.94 cm (0.6-1.1) PWd 0.76 cm (0.6-1.1) EF (Teich) 78.20% FS 46.70% EDV (Teich) 97.30 mL ESV (Teich) 21.20 mL LV Diastology E Decel Time 257 (160-240 msec) E/A Ratio 0.9 Aortic Valve JOSH Index 0.60 cm2/m2 AoV Peak Navdeep. 270.0 (50-130 cm/s) AO Peak GR. 29.20 mmHg AO Mean GR. 18.00 (<5 mmHg) AO VTI 55.2 (18-25 cm) JOSH (VTI) 1.31 (2.5-4.5 cm2) Mitral Valve MV E Max Navdeep. 129.0 (40-130 cm/s) MV A Velocity 146.0 (40-130 cm/s) E/A Ratio 0.88 MV Mean Gr. 5.90 (<2mmHg) MV PHT 75.0 ms Pulmonary Valve PV Peak Velocity 119.0 (50-150 cm/s) Tricuspid Valve TR P. Velocity 303.00 cm/s RAP Estimate 10.00 mmHg RVSP 46.80 mmHg Left Ventricle The left ventricle is normal size. The left ventricular systolic function is normal. The left ventricular ejection fraction is within the normal range. There is increased LV wall thickness. There is normal LV segmental wall motion. Diastolic function is indeterminate. LVEF is 50-55%. Right Ventricle The right ventricle is moderately dilated. There is mild reduction in RV function. Atria The left atrium is moderately dilated. The right atrium is mildly dilated. There is no Doppler evidence of interatrial shunt. Aortic Valve The aortic valve is moderately thickened. Mild valvular aortic stenosis is present. The aortic valve area by continuity equation is 1.4 cm???. Mean AV gradient is 19 mmHg. Max AV gradient is 31 mmHg. Peak velocity 2.8 m/s. Trace aortic regurgitation. Mitral Valve Moderate mitral annular calcification. The mitral valve leaflets are moderately thickened. Mild mitral stenosis. Mean MV gradient 7 mmHg (HR 82 bpm). MVA by PHT method is 3.0 cm2. Mild mitral regurgitation. Tricuspid Valve The tricuspid valve leaflets are thin and pliable. Mild tricuspid regurgitation. RVSP is 35-40 mmHg. Pulmonic Valve The pulmonary valve is normal in structure. Mild pulmonic regurgitation. Great Vessels The aortic root is normal in size. The ascending aorta is not well-visualized. IVC is normal in size and collapses >50% with inspiration. Pericardium There is no pericardial effusion. Other Information Study Quality: Technically Difficult Conclusion Technically difficult study due to poor acoustic windows. Normal LV systolic function. Moderate RV dilation with mild reduction in RV function. Biatrial dilation. Moderately thickened aortic valve. Mild valvular aortic stenosis is present. The aortic valve area by continuity equation is 1.4 cm???. Mean AV gradient is 19 mmHg. Max AV gradient is 31 mmHg. Peak velocity 2.8 m/s. Thickened MV leaflets. Mild MR. Mild MS (mean MV gradient 7 mmHg at HR 82 bpm). MVA by PHT method is 3.0 cm2. Mild TR. RVSP 35-40 mmHg. Note that this is a technically difficult study. If clinical concern for active endocarditis is present, further evaluation with JOY is recommended (if clinically indicated at this time) as this TTE is inconclusive to r/o vegetations. Electronically signed by : Elza Montejo MD 09/05/2023 23:05:30
[2023-09-04 16:00] VITALS: BP 124/60; PULSE 90; RESP 22; TEMP 36.6; O2SAT 98
--- NOTE | 2023-09-04 18:11 | PC.NURSE ---
PT IS RESTING IN BED. ALERT AND ORIENTED X3. PT TOLERATED SITTING UP IN THE CHAIR FOR A FEW HOURS THIS SHIFT. STAFF ASSIST PT WITH TURNING AND REPOSITIONING IN BED. APPETITE HAS BEEN POOR THIS SHIFT. LUNG SOUNDS DIMINISHED. ABDOMEN SOFT/NON TENDER WITH ACTIVE BOWEL SOUNDS. WILL CONTINUE TO MONITOR.
[2023-09-04 20:00] VITALS: BP 146/78; PULSE 82; RESP 20; TEMP 37; O2SAT 94
[2023-09-04 21:21] LABS: POC Glucose,Bedside 196 (70-110)
[2023-09-04] MEDS: BUSPIRONE HCL 5 MG TABLET PO (21:39)
[2023-09-04] MEDS: ATORVASTATIN 40MG TABLET 40 MG PO (21:39)
[2023-09-04] MEDS: INSULIN DETEMIR 100 UNIT/ML 3ML FLEXPEN 30 UNIT SQ (21:42)
[2023-09-04] MEDS: BISOPROLOL 5MG TABLET 2.5 MG PO (21:46)
[2023-09-04] MEDS: VANCOMYCIN HCL 2,000 MG in 0.9 % SODIUM CHLORIDE 250 ML 125 MG IV (22:54)
[2023-09-04 23:29] LABS: Vancomycin,Trough 14.9 ug/mL (5.0-10.0)
[2023-09-05] MEDS: MORPHINE 2MG/ML SYRINGE 2 MG IV (01:17)
[2023-09-05 03:35] LABS: Vancomycin,Peak 47.9 ug/ml (11-39)
[2023-09-05 04:00] VITALS: BP 140/73; PULSE 70; RESP 16; TEMP 36.9; O2SAT 99; BMI 40.6
[2023-09-05] MEDS: LEVOTHYROXINE 50MCG (0.05MG) TAB 50 MCG PO (06:03)
[2023-09-05] MEDS: FLUTICASONE/SALMETEROL 250/50MCG DISKUS 1 PUFF IH ×2 (06:05→18:03)
[2023-09-05 06:06] VITALS: O2SAT 99
[2023-09-05 06:22] LABS: POC Glucose,Bedside 143 (70-110)
[2023-09-05] MEDS: HYDROCODONE/APAP 5/325 MG TABLET 1 TAB PO (06:32)
[2023-09-05 06:48] LABS: Basophils % 0.1 % (0.1-2.0); Eosinophils # 0.2 K/mm3 (0.0-0.4); Eosinophils % 1.9 % (0.1-12.0); Hematocrit 28.5 % (37.0-47.0); Hemoglobin 9.3 g/dL (12.2-16.2); Lymphocytes # 1.8 K/mm3 (0.7-4.5); Lymphocytes % 17.6 % (10-50); Mean Corpuscular HGB Conc 32.7 g/dL (31.8-35.4); Mean Corpuscular Hemoglobin 22.8 pg (27.0-31.2); Mean Corpuscular Volume 69.6 fl (81-99); Monocytes # 0.4 K/mm3 (0.1-1.0); Monocytes % 4.2 % (1.7-9.3); Neutrophils # 7.9 K/mm3 (1.8-7.8); Neutrophils % 76.3 % (37.0-80.0); Platelet Count 289 K/mm3 (142-424); Red Blood Count 4.09 M/mm3 (4.20-5.40); Red Cell Distribution Width 21.1 % (11.5-17.5); White Blood Count 10.3 K/mm3 (4.8-10.8)
[2023-09-05 06:58] LABS: Chloride 106 mmol/L (98-107); Potassium 3.9 mmoL/L (3.5-5.1); Sodium 138 mmol/L (136-145)
[2023-09-05 07:01] LABS: Alanine Aminotransferase 29 U/L (12-78); Albumin Level 3.3 g/dl (3.5-5.0); Alkaline Phosphatase 112 U/L (38-126); Anion Gap 4.9 mEq/L (5-15); Aspartate Amino Transferase 27 U/L (14-36); Bilirubin,Total 0.5 mg/dl (0.2-1.3); Blood Urea Nitrogen 21 mg/dl (7-17); Carbon Dioxide 31 mmol/L (22.0-30.0); Creatinine Clearance Estimated 43 mL/min (50-200); Estimated Glomerular Filt Rate 61 ml/min (>60); GFR (African American) 74 ML/MIN (>60); Globulin 3.4 g/dL (1.3-3.2); Total Protein,Serum 6.7 g/dl (6.3-8.2)
[2023-09-05 07:02] LABS: Calcium 9.2 mg/dl (8.4-10.2); Glucose 131 mg/dl (74-100)
[2023-09-05 07:09] LABS: C-Reactive Protein 43.6 mg/L (0-4)
--- NOTE | 2023-09-05 07:09 | XR_ITS ---
FINAL REPORT CLINICAL HISTORY: Confirm PICC line placement COMPARISON: None FINDINGS: A single portable view of the chest was obtained. A left PICC line is present with its tip in the region of the upper superior vena cava. The patient has undergone prior midline sternotomy. Mild cardiomegaly is present. The mediastinum is within normal limits. A small left pleural effusion is present. The bony thorax is intact. IMPRESSION: PICC line tip is in the upper superior vena cava. Prior midline sternotomy with mild cardiomegaly and a small left pleural effusion. Reviewed, Interpreted and Dictated by Armando Price III, MD Transcribed by Marie Sawant Authenticated and . [facility]
--- NOTE | 2023-09-05 07:12 | PC.NURSE ---
PICC line order placed per Dr. Sethi verbal orders and note orders for continued abx coverage
--- NOTE | 2023-09-05 07:26 | EXP.PHA.PN ---
Subjective *Date: 09/05/23 *Time: 07:26 Medical Exam Vital signs and Labs for Last 24 Hours: Vital Signs Temp Pulse Resp BP Pulse Ox O2 Del Method O2 Flow Rate 09/05/23 07:00 Nasal Cannula 2 09/05/23 05:00 Nasal Cannula 2 09/05/23 06:06 99 Nasal Cannula 2.5 09/05/23 04:00 98.4 F 70 16 140/73 99 Nasal Cannula 09/05/23 03:00 Nasal Cannula 2 09/05/23 01:00 Nasal Cannula 2 09/04/23 23:00 Nasal Cannula 2 09/04/23 21:00 Nasal Cannula 2 09/04/23 21:00 Nasal Cannula 2 09/04/23 20:00 98.6 F 82 20 146/78 H 94 L Room Air 09/04/23 18:40 Nasal Cannula 09/04/23 16:00 97.8 F 90 22 124/60 98 Nasal Cannula 09/04/23 08:00 Nasal Cannula 09/04/23 16:40 Nasal Cannula 09/04/23 16:00 Nasal Cannula 09/04/23 15:00 Nasal Cannula 09/04/23 13:00 Nasal Cannula 09/04/23 11:00 Nasal Cannula 09/04/23 08:00 Nasal Cannula 2 09/04/23 09:00 Nasal Cannula 2 09/04/23 08:00 98.3 F 73 20 131/77 96 Nasal Cannula Intake and Output 09/04/23 09/04/23 09/05/23 15:59 23:59 07:59 Intake Total 60 / 570 270 / 570 240 / 240 Output Total 0 / 0 200 / 200 Balance 60 / 570 270 / 570 40 / 40 Intake: Intake, Oral Amount 60 / 570 270 / 570 240 / 240 Output: Output, Urine Amount 0 / 0 200 / 200 Other: Number of Voids 0 Number of Unmeasured Voids 0 Weight 110.767 kg Patient Weight 09/05/23 23:59 Weight 110.767 kg Laboratory Results - last 24 hr 09/04/23 06:14: WBC 10.9 H D, RBC 4.20, Hgb 9.6 L, Hct 29.4 L, MCV 69.9 L, MCH 22.7 L, MCHC 32.5, RDW 20.7 H, Plt Count 290, MPV 7.9, Neut % (Auto) 75.2, Lymph % (Auto) 17.7, [place] % (Auto) 5.2, Eos % (Auto) 1.7, Baso % (Auto) 0.2, Neut # (Auto) 8.2 H, Lymph # (Auto) 1.9, [place] # (Auto) 0.6, Eos # (Auto) 0.2, Baso # (Auto) 0.0, Total Counted 100, Neutrophils % (Manual) 74, Band Neutrophils % 4.0, Lymphocytes % (Manual) 18, Monocytes % (Manual) 3, Eosinophils % (Manual) 1, Platelet Estimate Normal, Hypochromasia 1+, Poikilocytosis 1+, Anisocytosis 1+, Microcytosis 2+, Spherocytes 1+, Neymar Cells 1+, Sodium 138, Potassium 3.9, Chloride 105, Carbon Dioxide 32 H, Anion Gap 4.9 L, BUN 23 H, Creatinine 0.80, Estimated Creat Clear 43, Estimated GFR 70, Est GFR ( Amer) 85, Glucose 112 H D, Calcium 9.2 09/04/23 11:38: POC Glucose 169 H 09/04/23 21:14: POC Glucose 196 H 09/04/23 22:51: Vancomycin Trough 14.9 H 09/05/23 02:00: Vancomycin Peak 47.9 H* 09/05/23 05:34: WBC 10.3, RBC 4.09 L, Hgb 9.3 L, Hct 28.5 L, MCV 69.6 L, MCH 22.8 L, MCHC 32.7, RDW 21.1 H, Plt Count 289, MPV 8.0, Neut % (Auto) 76.3, Lymph % (Auto) 17.6, [place] % (Auto) 4.2, Eos % (Auto) 1.9, Baso % (Auto) 0.1, Neut # (Auto) 7.9 H, Lymph # (Auto) 1.8, [place] # (Auto) 0.4, Eos # (Auto) 0.2, Baso # (Auto) 0.0, Sodium 138, Potassium 3.9, Chloride 106, Carbon Dioxide 31 H, Anion Gap 4.9 L, BUN 21 H, Creatinine 0.90, Estimated Creat Clear 43, Estimated GFR 61, Est GFR ( Amer) 74, Glucose 131 H, Calcium 9.2, Total Bilirubin 0.5, AST 27, ALT 29, Alkaline Phosphatase 112, C-Reactive Protein 43.6 H, Total Protein 6.7, Albumin 3.3 L, Globulin 3.4 H, Albumin/Globulin Ratio 1.0 L 09/05/23 06:01: POC Glucose 143 H I & O for Labs for Last 24 Hours: Intake & Output 09/02/23 09/03/23 09/04/23 09/05/23 23:59 23:59 23:59 23:59 Intake Total 1517 / 1517 660 / 660 330 / 570 240 / 240 Output Total 4000 / 4000 1700 / 1700 0 / 0 200 / 200 Balance -2483 / -2483 -1040 / -1040 330 / 570 40 / 40 Weight 113.455 kg 112.207 kg 112.207 kg 110.767 kg Microbiology Reports for the Last 24 Hours: Microbiology 09/01/23 23:08 Blood Blood Culture - Preliminary 09/02/23 00:03 Blood Blood Culture - Preliminary The patient's infection will respond to the chosen ABx?: Yes Is the patient receiving the right drug, dose, and route?: Yes Could a more targeted ABx be ordered?: No
[2023-09-05 07:58] VITALS: BP 111/75; PULSE 66; RESP 17; TEMP 36.6; O2SAT 100
[2023-09-05] MEDS: APIXABAN 5MG TABLET 5 MG PO ×2 (08:07→20:21)
[2023-09-05] MEDS: ASCORBIC ACID 500MG TAB 500 MG PO (08:07)
[2023-09-05] MEDS: BUMETANIDE 1 MG TABLET PO ×2 (08:07→13:43)
[2023-09-05] MEDS: CLOPIDOGREL 75MG TAB 75 MG PO (08:07)
[2023-09-05] MEDS: INSULIN DETEMIR 100 UNIT/ML 3ML FLEXPEN 30 UNIT SQ ×2 (08:07→20:24)
[2023-09-05] MEDS: CITALOPRAM 40MG TABLET 40 MG PO (08:07)
--- NOTE | 2023-09-05 08:19 | EXP.PHA.CONS ---
Pharmacy Consult Date: 09/05/23 Time: 08:20 Referring provider: DR. KRAMER Reason for Consult:: GENTAMICIN DOSING AND VANC TROUGH/PEAK LEVEL Allergies Allergy/AdvReac Type Severity Reaction Status Date / Time Iodinated Contrast Media Allergy Intermediate Hives Verified 08/23/23 14:44 [Iodinated Contrast Media - IV Dye] celecoxib [From CELEBREX] Allergy Unknown SWELLING Verified 08/23/23 14:44 ibuprofen [IBUPROFEN] Allergy Unknown S-BLISTERING Verified 08/23/23 14:44 WELTS meloxicam [MELOXICAM] Allergy Unknown S-BLISTERING Verified 08/23/23 14:44 WELTS Penicillins [PENICILLINS] Allergy Unknown I-HIVES Verified 08/23/23 14:44 rofecoxib [From VIOXX] Allergy Unknown I-HIVES Verified 08/23/23 14:44 Home Medications Medication Instructions Recorded Confirmed Type cholecalciferol (vitamin D3) 25 1,000 unit PO BID Supplement 08/11/20 09/02/23 History mcg (1,000 unit) capsule ascorbate calcium (vitamin C) 500 500 mg PO DAILY Supplement 11/30/20 09/02/23 History mg tablet albuterol sulfate 90 mcg/actuation 2 inh inhalation Q6HP PRN 08/01/22 09/02/23 History aerosol inhaler Shortness Of Breath Or Wheezing zinc acetate 50 mg (zinc) capsule 50 mg PO DAILY Supplement 10/06/22 09/02/23 History insulin detemir U-100 100 unit/mL 60 unit SQ BID Diabetes 07/04/23 09/02/23 History (3 mL) subcutaneous pen levothyroxine 50 mcg tablet 50 mcg PO DAILYDM THYROID 07/04/23 09/02/23 History metoclopramide HCl 5 mg tablet 5 mg PO BID STOMACH CRAMPS 07/04/23 09/02/23 History omeprazole 20 mg capsule,delayed 20 mg PO DAILY Acid Reflux 07/04/23 09/02/23 History release baclofen 10 mg tablet 10 mg PO BIDP PRN Muscle Spasm 07/05/23 09/02/23 History buspirone 5 mg tablet 5 mg PO HS Anxiety 07/05/23 09/02/23 History citalopram 40 mg tablet 40 mg PO DAILY Depression 07/05/23 09/02/23 History clopidogrel 75 mg tablet 75 mg PO DAILY Blood Thinner 07/05/23 09/02/23 History cranberry 1,000 mg capsule 1,500 mg PO DAILY Supplement 07/05/23 09/02/23 History dulaglutide 0.75 mg/0.5 mL 0.75 mg SQ SA Diabetes 07/05/23 09/02/23 History subcutaneous pen injector (Trulicity) ergocalciferol (vitamin D2) 1,250 50,000 unit PO TOMLINSON Supplement 07/05/23 09/02/23 History mcg (50,000 unit) capsule (Vitamin D2) fluticasone furoate 100 1 inh inhalation DAILY Copd 07/05/23 09/02/23 History mcg-vilanterol 25 mcg/dose inhalation powder (Breo Ellipta) apixaban 5 mg tablet (Eliquis) 5 mg PO BID Blood Thinner 09/02/23 09/02/23 History atorvastatin 40 mg tablet 40 mg PO HS Cholesterol 09/02/23 09/02/23 History bisoprolol fumarate 5 mg tablet 2.5 mg PO HS High Blood Pressure 09/02/23 09/02/23 History bumetanide 1 mg tablet 1 mg PO 0800,1400 Fluid 09/02/23 09/02/23 History gabapentin 800 mg tablet 800 mg PO TID NERVE PAIN 09/02/23 09/02/23 History hydrocodone 5 mg-acetaminophen 325 1 tab PO QIDP PRN Moderate Pain 09/02/23 09/02/23 History mg tablet (Scale Score 5-6) icosapent ethyl 1 gram capsule 2 g PO BID Cholesterol 09/02/23 09/02/23 History (Vascepa) insulin aspar prot-insulin aspart 60 unit SQ BID Diabetes 09/02/23 09/02/23 History 100 unit/mL (70-30) subcutaneous pen (Novolog Mix 70-30FlexPen U-100) irbesartan 75 mg tablet 37.5 mg PO DAILY High Blood 09/02/23 09/02/23 History Pressure meclizine 25 mg tablet 25 mg PO BIDP PRN Dizziness 09/02/23 09/02/23 History polyethylene glycol 3350 17 gram 17 g PO DAILY Constipation 09/02/23 09/02/23 History oral powder packet New Prescriptions to Start Prescriptions: Height: 1.65 m Weight: 110.767 kg Laboratory Results:: Laboratory Results - last 24 hr 09/04/23 06:14: Total Counted 100, Neutrophils % (Manual) 74, Band Neutrophils % 4.0, Lymphocytes % (Manual) 18, Monocytes % (Manual) 3, Eosinophils % (Manual) 1, Platelet Estimate Normal, Hypochromasia 1+, Poikilocytosis 1+, Anisocytosis 1+, Microcytosis 2+, Spherocytes 1+, Neymar Cells 1+, Sodium 138, Potassium 3.9, Chloride 105, Carbon Dioxide 32 H, Anion Gap 4.9 L, BUN 23 H, Creatinine 0.80, Estimated Creat Clear 43, Estimated GFR 70, Est GFR ( Amer) 85, Glucose 112 H D, Calcium 9.2 09/04/23 11:38: POC Glucose 169 H 09/04/23 21:14: POC Glucose 196 H 09/04/23 22:51: Vancomycin Trough 14.9 H 09/05/23 02:00: Vancomycin Peak 47.9 H* 09/05/23 05:34: WBC 10.3, RBC 4.09 L, Hgb 9.3 L, Hct 28.5 L, MCV 69.6 L, MCH 22.8 L, MCHC 32.7, RDW 21.1 H, Plt Count 289, MPV 8.0, Neut % (Auto) 76.3, Lymph % (Auto) 17.6, [place] % (Auto) 4.2, Eos % (Auto) 1.9, Baso % (Auto) 0.1, Neut # (Auto) 7.9 H, Lymph # (Auto) 1.8, [place] # (Auto) 0.4, Eos # (Auto) 0.2, Baso # (Auto) 0.0, Sodium 138, Potassium 3.9, Chloride 106, Carbon Dioxide 31 H, Anion Gap 4.9 L, BUN 21 H, Creatinine 0.90, Estimated Creat Clear 43, Estimated GFR 61, Est GFR ( Amer) 74, Glucose 131 H, Calcium 9.2, Total Bilirubin 0.5, AST 27, ALT 29, Alkaline Phosphatase 112, C-Reactive Protein 43.6 H, Total Protein 6.7, Albumin 3.3 L, Globulin 3.4 H, Albumin/Globulin Ratio 1.0 L 09/05/23 06:01: POC Glucose 143 H Medical History: Medical History (Updated 09/02/23 @ 12:16 by Ronnie Kramer MD) Abnormal PFT Acute hip pain Acute on chronic diastolic heart failure Adult failure to thrive Anemia Anxiety Aortic stenosis Asthma exacerbation in COPD Atrial fibrillation Atrial fibrillation Atypical angina Atypical chest pain Bilateral swelling of feet Biventricular CHF (congestive heart failure) CHF (congestive heart failure) CHF exacerbation Chronic hypoxemic respiratory failure Chronic pain Contrast media allergy COPD (chronic obstructive pulmonary disease) Coronary artery disease Depression Diabetes mellitus Diabetic gastroparesis associated with type 2 diabetes mellitus Diabetic neuropathy associated with type 2 diabetes mellitus Diarrhea Dyspnea Dyspnea on exertion Dyspnea on exertion GERD (gastroesophageal reflux disease) History of 2019 novel coronavirus disease (COVID-19) Hyperlipidemia Hypertension Hypothyroidism Hypoxemia IDDM (insulin dependent diabetes mellitus) Intermittent confusion Low back pain Lumbar disc disease Lumbar disc disease with radiculopathy Lumbar radiculopathy Lumbar radiculopathy, chronic Lumbar radiculopathy, chronic Morbid obesity with BMI of 40.0-44.9, adult Nocturnal hypoxemia Non-STEMI (non-ST elevated myocardial infarction) ERICKSON (obstructive sleep apnea) ERICKSON (obstructive sleep apnea) Physical deconditioning Pneumonia Pneumonia Proliferative diabetic retinopathy Pulmonary HTN Pulmonary hypertension Restrictive lung disease Restrictive lung disease Sciatica associated with disorder of lumbar spine Severe pulmonary hypertension Sleep disorder breathing Stopped smoking with greater than 30 pack year history Typical angina Urinary incontinence Vertigo Vitamin D deficiency Weakness Assessment and Plan Assessment and plan all Dx Assessment and Plan for all problems:: BASED ON PATIENT FACTORS AND VANC TROUGH LEVEL OF 14.9 AND PEAK LEVEL OF 47.9, RECOMMEND CONTINUING VANCOMYCIN AT 2,000MG EVERY 24 HOURS. PHARMACY WILL CONTINUE TO MONITOR. Pharmacokinetic dosing service Objective: Patient: Floor: Age: 73 yo Serum creatinine: 0.90 mg/dL Height: 65.0 Inches Weight (kg): 110.8 Assessment: IBW (kg): 57.00 Dosing wt(kg): 78.5 Estimated Creatinine clearance (ml/min): 49.3 CRCL method: Cockcroft and Gault using ibw(default). Drug selected: Gentamicin Loading dose (mg): 0 Vd (liters): 23.6 (factor used: 0.3 L/kg) Rodo (hr-1): 0.158 Half life (hrs): 4.39 Recommended dose: 440 mg Interval: 24 hrs Infusion time (hrs): 1 Predicted peak (mcg/mL): 17.6 Predicted trough (mcg/mL): 0.46 Recommendations: Give Gentamicin 440 mg q 24 hrs with an expected Cpeak of 17.6 mcg/ml and an expected Ctrough of 0.46 mcg/ml Thank you for the consult, will continue to follow. -ERASMO SIND
[2023-09-05] MEDS: ONDANSETRON 4MG/2ML VIAL 4 MG IV (08:21)
[2023-09-05] MEDS: GENTAMICIN SULFATE IV (08:55)
[2023-09-05] MEDS: SODIUM CHLORIDE 0.9% IV (08:55)
--- NOTE | 2023-09-05 09:29 | PC.NURSE ---
verbal order given per Dr. Sethi to cancel picc insertion d/t awaiting pt's blood cultures to result.
[2023-09-05 10:10] LABS: POC Glucose,Bedside 175 (70-110)
--- NOTE | 2023-09-05 13:44 | DIET.NUTRFU ---
RD completed meal rounds, patient reported poor po intake. Lack of appetite, denied any GI distress. LBM 09/03/23. Offered multiple meal alternatives and she declined. She also is not drinking the glucerna, she does not like it, discontinued. Her BS have been elevated with insulin in place. She declined additional supplementation. She is on ABT tx. She is filling out menu, will continue to monitor.
--- NOTE | 2023-09-05 14:53 | PC.NURSE ---
pt. aox3, up with assist times one, purewick in place, left upper arm picc line placed, o2 2L nc.
[2023-09-05 15:07] VITALS: BP 115/70; PULSE 68; RESP 17; TEMP 36.6; O2SAT 98
[2023-09-05 15:36] LABS: Gentamicin,Random 9.9 ug/ml
[2023-09-05 16:26] LABS: POC Glucose,Bedside 159 (70-110)
[2023-09-05 18:03] VITALS: O2SAT 99
--- NOTE | 2023-09-05 20:12 | P.PN_ITS ---
Subjective *Date: 09/05/23 *Time: 20:12 Interval history: Patient feeling better. Afebrile. No nausea or vomiting. Awaiting blood cultures to be negative. Continues to necessitate significant assistance. PICC line placed this morning. Medical Exam Vital signs and Labs for Last 24 Hours: Vital Signs Temp Pulse Resp BP Pulse Ox O2 Del Method O2 Flow Rate 09/05/23 18:03 99 Nasal Cannula 2 09/05/23 17:37 Nasal Cannula 2 09/05/23 16:55 Nasal Cannula 2 09/05/23 15:07 97.9 F 68 17 115/70 98 Nasal Cannula 2 09/05/23 14:11 Nasal Cannula 2 09/05/23 12:24 Nasal Cannula 2 09/05/23 10:41 Nasal Cannula 2 09/05/23 08:00 Nasal Cannula 2 09/05/23 08:35 Nasal Cannula 2 09/05/23 07:58 97.9 F 66 17 111/75 100 Nasal Cannula 2 09/05/23 07:00 Nasal Cannula 2 09/05/23 05:00 Nasal Cannula 2 09/05/23 06:06 99 Nasal Cannula 2.5 09/05/23 04:00 98.4 F 70 16 140/73 99 Nasal Cannula 09/05/23 03:00 Nasal Cannula 2 09/05/23 01:00 Nasal Cannula 2 09/04/23 23:00 Nasal Cannula 2 09/04/23 21:00 Nasal Cannula 2 09/04/23 21:00 Nasal Cannula 2 Intake and Output 09/05/23 09/05/23 09/05/23 07:59 15:59 23:59 Intake Total 480 / 940 340 / 940 120 / 940 Output Total 200 / 700 500 / 700 Balance 280 / 240 -160 / 240 120 / 240 Intake: Intake, Oral Amount 480 / 840 240 / 840 120 / 840 Intake, Total IV Amount 100 / 100 Gentamicin Sulfate 440 mg In 0. 100 / 100 9 % Sodium Chloride 100 ml @ 100 mls/hr IV Q24H REPLACED BY [facility] Rx#: [id number] Output: Output, Urine Amount 200 / 700 500 / 700 Other: Number of Unmeasured Voids 0 0 Weight 110.767 kg 110.767 kg Patient Weight 09/05/23 23:59 Weight 110.767 kg Laboratory Results - last 24 hr 09/04/23 21:14: POC Glucose 196 H 09/04/23 22:51: Vancomycin Trough 14.9 H 09/05/23 02:00: Vancomycin Peak 47.9 H* 09/05/23 05:34: WBC 10.3, RBC 4.09 L, Hgb 9.3 L, Hct 28.5 L, MCV 69.6 L, MCH 22.8 L, MCHC 32.7, RDW 21.1 H, Plt Count 289, MPV 8.0, Neut % (Auto) 76.3, Lymph % (Auto) 17.6, [place] % (Auto) 4.2, Eos % (Auto) 1.9, Baso % (Auto) 0.1, Neut # (Auto) 7.9 H, Lymph # (Auto) 1.8, [place] # (Auto) 0.4, Eos # (Auto) 0.2, Baso # (Auto) 0.0, Sodium 138, Potassium 3.9, Chloride 106, Carbon Dioxide 31 H, Anion Gap 4.9 L, BUN 21 H, Creatinine 0.90, Estimated Creat Clear 43, Estimated GFR 61, Est GFR ( Amer) 74, Glucose 131 H, Calcium 9.2, Total Bilirubin 0.5, AST 27, ALT 29, Alkaline Phosphatase 112, C-Reactive Protein 43.6 H, Total Protein 6.7, Albumin 3.3 L, Globulin 3.4 H, Albumin/Globulin Ratio 1.0 L 09/05/23 06:01: POC Glucose 143 H 09/05/23 10:02: POC Glucose 175 H 09/05/23 14:40: Random Gentamicin 9.9 09/05/23 16:19: POC Glucose 159 H I & O for Labs for Last 24 Hours: Intake & Output 09/02/23 09/03/23 09/04/23 09/05/23 23:59 23:59 23:59 23:59 Intake Total 1517 / 1517 660 / 660 330 / 570 940 / 940 Output Total 4000 / 4000 1700 / 1700 0 / 0 700 / 700 Balance -2483 / -2483 -1040 / -1040 330 / 570 240 / 240 Weight 113.455 kg 112.207 kg 112.207 kg 110.767 kg Constitutional: Present no acute distress, morbidly obese, chronically ill appearing and cooperative Head: Present atraumatic and normocephalic ENT: Present normal exam Comment:: cushingoid facies Respiratory: Present crackles, distant breath sounds, diminished air movement and normal respiratory effort; Absent rhonchi or wheezes Cardiac: Present Reg Rate and Rhythm GI: Present soft and normal bowel sounds; Absent distention or tenderness Extremities: Present normal inspection, full ROM and edema (2+ BLE to thighs) Comment:: No [place] lesions, Osler nodes, splinter hemorrhages, or other stigmata of endocarditis. Skin: Present intact; Absent erythema Neuro: Present Grossly Intact, alert, awake and moves all extremities Assessment and Plan *Assessment and plan (1) Bacteremia due to Enterococcus: Status: Acute Category: Medical Code(s): R78.81 - Bacteremia; B95.2 - Enterococcus as the cause of diseases classified elsewhere (2) Physical deconditioning: Status: Inactive Category: Medical Code(s): R53.81 - Other malaise (3) Iron deficiency anemia: Status: Acute Category: Medical Code(s): D50.9 - Iron deficiency anemia, unspecified (4) Hyponatremia: Status: Acute Category: Medical Code(s): E87.1 - Hypo-osmolality and hyponatremia (5) Physical deconditioning: Status: Acute Category: Medical Code(s): R53.81 - Other malaise (6) CHF (congestive heart failure): Status: Acute Qualifiers: Heart failure chronicity: acute on chronic Heart failure type: un specified Qualified Code(s): I50.9 - Heart failure, unspecified Category: Medical Code(s): I50.9 - Heart failure, unspecified (7) Diabetes mellitus: Problem Comment: type 2 non insulin dep Status: Inactive Qualifiers: Diabetes mellitus type: type 2 Diabetes mellitus complication status: with hyperglycemia Diabetes mellitus intermediate manager insulin use: with intermediate manager use Qualified Code(s): E11.65 - Type 2 diabetes mellitus with hyperglycemia Category: Medical Code(s): E11.9 - Type 2 diabetes mellitus without complications (8) Hypertension: Status: Inactive Qualifiers: Hypertension type: essential hypertension Qualified Code(s): I10 - Essential (primary) hypertension Category: Medical Code(s): I10 - Essential (primary) hypertension (9) Hyperlipidemia: Status: Inactive Qualifiers: Hyperlipidemia type: unspecified Qualified Code(s): E78.5 - Hyperlipidemia, unspecified Category: Medical Code(s): E78.5 - Hyperlipidemia, unspecified (10) Morbid obesity with BMI of 40.0-44.9, adult: Status: Inactive Category: Medical Code(s): E66.01 - Morbid (severe) obesity due to excess calories; Z68.41 - Body mass index [BMI] 40.0-44.9, adult Plan This is a 73-year-old female with PMHx of hypertension, hyperlipidemia, aortic stenosis, mitral valve regurgitation, CAD status post CABG, A-fib on Eliquis, CHF on 2.5 L nasal cannula, diabetes, COPD on nightly BiPAP, obese amongst many other things. Patient's family states that she has been on a decline for the past 2 days. on arrival, new set of lab was obtained. patient presented anemic, hyponatremic, Creatinine has been stable. Head to toe CT screening conducted due to c/o multiples falls at home and lumbar pain. Imaging reviewed. Discussed with ER. agreed for admission. Patient nataliia hemodynamically stable this morning. Repeat cultures from admission positive for E faecalis, sensitive to vancomycin. Will add gentamicin for synergy. Awaiting repeat cultures from yesterday for negative at 48 hours. PICC line placed at greater than 24 hours negative from repeat culture. Unclear source. Endocarditis in differential. Echo obtained today. Continues to require patient management. Problems addressed as follows: -Bacteremia due to Enterococcus: -Deconditioning Patient had positive blood culture for E faecalis from last admission but had no clinical sign of infection. Repeat blood cultures continue to be positive with E faecalis. Sensitive to vancomycin and gentamicin. Will add gentamicin for synergy today. Differential diagnosis includes endocarditis, GI source, urinary source, or other unspecified location. Echocardiogram obtained, evaluating for vegetations. Patient has no stigmata of endocarditis on exam. Only meeting 1 major criteria with Barton criteria for endocarditis. Will consider treatment for 2 to 6 weeks pending repeat culture results. -White cell count normal at 10. Afebrile. No hemodynamic instability. Wears oxygen at night, room air during the day. - therapy working with patient while admitted, PT and OT consulted. Discussed case with PT, recommend SNF placement given debility and significant necessity for ADLs - Repeat CBC, CMP, magnesium ordered for the morning -Hyponatremia: Resolved, sodium 138 this morning Anemia: Iron studies show low levels of iron and ferritin. Administered Venofer 09/02. Status post 1 unit blood transfusion. Hemoglobin 9.3 this morning. No active signs of bleeding. Transfusion threshold hemoglobin less than 9 in the setting of history of CHF and CABG. would benefit from Venofer course as an outpatient -CHF: -History of CABG Hypertension/hyperlipidemia- Bumex 1 mg twice daily per home regimen. Bisoprolol 2.5 mg twice daily, Lipitor 40 mg nightly for cholesterol, Eliquis 5 mg twice daily, -Diabetes insulin-dependent: With gastroparesis and neuropathy: On gabapentin and hydrocodone at home. Continue hydrocodone. Holding gabapentin. Patient's pain appears to be stable. Concern for oversedation from polypharmacy in the outpatient setting Sliding scale insulin, fingersticks ACHS Continue insulin detemir 30 units twice daily, monitor glucose for further adjustment, morning glucose 112 Hypothyroid: Continue levothyroxine 50 mcg daily Morbid obesity with comorbidity: complicates all aspects of care. Diabetic diet Full code Patricia
[2023-09-05 20:20] VITALS: BP 142/82; PULSE 71; RESP 20; TEMP 36.9; O2SAT 100
[2023-09-05] MEDS: BUSPIRONE HCL 5 MG TABLET PO (20:21)
[2023-09-05] MEDS: ATORVASTATIN 40MG TABLET 40 MG PO (20:22)
[2023-09-05] MEDS: PANTOPRAZOLE 40MG TABLET 40 MG PO (20:23)
[2023-09-05] MEDS: BISOPROLOL 5MG TABLET 2.5 MG PO (20:23)
[2023-09-05 20:34] LABS: POC Glucose,Bedside 177 (70-110)
[2023-09-05 23:05] LABS: Gentamicin,Random 5.3 ug/ml
[2023-09-05] MEDS: VANCOMYCIN HCL 2,000 MG in 0.9 % SODIUM CHLORIDE 250 ML 125 MG IV (23:30)
[2023-09-06 04:00] VITALS: BP 129/80; PULSE 81; RESP 20; TEMP 37; O2SAT 100; BMI 40.4
[2023-09-06 05:54] LABS: POC Glucose,Bedside 154 (70-110)
[2023-09-06 06:15] VITALS: O2SAT 100
[2023-09-06] MEDS: LEVOTHYROXINE 50MCG (0.05MG) TAB 50 MCG PO (06:27)
[2023-09-06 06:35] LABS: Basophils % 0.2 % (0.1-2.0); Eosinophils # 0.2 K/mm3 (0.0-0.4); Eosinophils % 2.3 % (0.1-12.0); Hematocrit 29.1 % (37.0-47.0); Hemoglobin 9.5 g/dL (12.2-16.2); Lymphocytes # 1.7 K/mm3 (0.7-4.5); Lymphocytes % 19.1 % (10-50); Mean Corpuscular HGB Conc 32.6 g/dL (31.8-35.4); Mean Corpuscular Hemoglobin 23.3 pg (27.0-31.2); Mean Corpuscular Volume 71.4 fl (81-99); Mean Platelet Volume 7.9 fl (7.4-10.4); Monocytes # 0.4 K/mm3 (0.1-1.0); Monocytes % 4.5 % (1.7-9.3); Neutrophils # 6.5 K/mm3 (1.8-7.8); Neutrophils % 73.8 % (37.0-80.0); Platelet Count 291 K/mm3 (142-424); Red Blood Count 4.08 M/mm3 (4.20-5.40); Red Cell Distribution Width 21.5 % (11.5-17.5); White Blood Count 8.8 K/mm3 (4.8-10.8)
[2023-09-06 06:46] LABS: Chloride 103 mmol/L (98-107); Potassium 4.2 mmoL/L (3.5-5.1); Sodium 139 mmol/L (136-145)
[2023-09-06 06:48] LABS: Alanine Aminotransferase 34 U/L (12-78); Aspartate Amino Transferase 31 U/L (14-36); Blood Urea Nitrogen 22 mg/dl (7-17); Creatinine Clearance Estimated 39 mL/min (50-200); Estimated Glomerular Filt Rate 49 ml/min (>60); GFR (African American) 59 ML/MIN (>60)
[2023-09-06 06:49] LABS: Albumin Level 3.4 g/dl (3.5-5.0); Alkaline Phosphatase 112 U/L (38-126); Anion Gap 9.2 mEq/L (5-15); Bilirubin,Total 0.6 mg/dl (0.2-1.3); Calcium 9.1 mg/dl (8.4-10.2); Carbon Dioxide 31 mmol/L (22.0-30.0); Globulin 3.5 g/dL (1.3-3.2); Glucose 138 mg/dl (74-100); Total Protein,Serum 6.9 g/dl (6.3-8.2)
[2023-09-06 08:00] VITALS: BP 143/57; PULSE 66; RESP 21; TEMP 36.6; O2SAT 100
[2023-09-06] MEDS: ONDANSETRON 4MG/2ML VIAL 4 MG IV (08:07)
[2023-09-06] MEDS: POLYETHYLENE GLYCOL 3350 17 GM PACKET PO (08:09)
[2023-09-06] MEDS: SODIUM CHLORIDE 0.9% IV (08:09)
[2023-09-06] MEDS: GENTAMICIN SULFATE IV (08:09)
[2023-09-06] MEDS: BUMETANIDE 1 MG TABLET PO (08:13)
[2023-09-06] MEDS: CITALOPRAM 40MG TABLET 40 MG PO (08:13)
[2023-09-06] MEDS: ASCORBIC ACID 500MG TAB 500 MG PO (08:13)
[2023-09-06] MEDS: CLOPIDOGREL 75MG TAB 75 MG PO (08:14)
[2023-09-06] MEDS: APIXABAN 5MG TABLET 5 MG PO (08:14)
[2023-09-06] MEDS: INSULIN DETEMIR 100 UNIT/ML 3ML FLEXPEN 30 UNIT SQ (08:18)
--- NOTE | 2023-09-06 09:52 | EXP.DC.SUM ---
General Admission date:: 09/01/23 Discharge date: 09/06/23 HPI HPI HPI: This is a 73-year-old female with PMHx of hypertension, hyperlipidemia, aortic stenosis, mitral valve regurgitation, CAD status post CABG, A-fib on Eliquis, CHF on 2.5 L nasal cannula, diabetes, COPD on nightly BiPAP, obese amongst many other things. Patient was hospitalized for CHF exacerbation and recently discharged home. Patient was called in for positive blood culture. Patient stated she was feeling better at the time of discharge that has been felling general weakness and malaise since 2 days ago. Per patient's daugther she is increasingly deteriorating and current unable to perform her daily ADLs. Daughter reported multiple assisted falls with now lumbar pain. Of note, they refused to go to group home. Patient denies fevers, chills, nausea, vomiting. Admitted for treatment and management. Hospital Course Hospital Course Hospital Course: Patient was seen and evaluated at the bedside on the day of discharge. Patient is stable for discharge. Patient wishes to be discharged. All patient questions were answered and patient was given time to ask questions. Patient was discharged in stable condition. Patient understands that she can return to ER in case of any sudden changes in health. Total time spent on DC - 38 mins This is a 73-year-old female with PMHx of hypertension, hyperlipidemia, aortic stenosis, mitral valve regurgitation, CAD status post CABG, A-fib on Eliquis, CHF on 2.5 L nasal cannula, diabetes, COPD on nightly BiPAP, obese amongst many other things. Patient's family states that she has been on a decline for the past 2 days. on arrival, new set of lab was obtained. patient presented anemic, hyponatremic, Creatinine has been stable. Head to toe CT screening conducted due to c/o multiples falls at home and lumbar pain. Imaging reviewed. Discussed with ER. agreed for admission. Patient nataliia hemodynamically stable this morning. Repeat cultures from admission positive for E faecalis, sensitive to vancomycin. Will add gentamicin for synergy. Awaiting repeat cultures from yesterday for negative at 48 hours. PICC line placed at greater than 24 hours negative from repeat culture. Unclear source. Endocarditis in differential. Echo obtained today. Continues to require patient management. Problems addressed as follows: -Bacteremia due to Enterococcus: -Deconditioning Patient had positive blood culture for E faecalis from last admission but had no clinical sign of infection. Repeat blood cultures continue to be positive with E faecalis. Sensitive to vancomycin and gentamicin. Will add gentamicin for synergy today. Stable for DC Repeat cultures negative to date -Hyponatremia: Resolved Anemia: Iron studies show low levels of iron and ferritin. Administered Venofer 09/02. Status post 1 unit blood transfusion. -CHF: -History of CABG Hypertension/hyperlipidemia- Bumex 1 mg twice daily per home regimen. Bisoprolol 2.5 mg twice daily, Lipitor 40 mg nightly for cholesterol, Eliquis 5 mg twice daily -Diabetes insulin-dependent: With gastroparesis and neuropathy: On gabapentin and hydrocodone at home. Continue hydrocodone. Hypothyroid: Continue levothyroxine 50 mcg daily Morbid obesity with comorbidity: complicates all aspects of care. Exam Data for Last 24 hours Vital signs and Labs for Last 24 Hours: Temp Pulse Resp BP Pulse Ox O2 Del Method O2 Flow Rate 97.8 F 66 21 143/57 H 100 Nasal Cannula 2 09/06/23 08:00 09/06/23 08:00 09/06/23 08:00 09/06/23 08:00 09/06/23 08:00 09/06/23 08:00 09/06/23 08:00 Laboratory Results - last 24 hr 09/05/23 10:02: POC Glucose 175 H 09/05/23 14:40: Random Gentamicin 9.9 09/05/23 16:19: POC Glucose 159 H 09/05/23 20:08: POC Glucose 177 H 09/05/23 22:00: Random Gentamicin 5.3 09/06/23 05:40: POC Glucose 154 H 09/06/23 05:43: WBC 8.8, RBC 4.08 L, Hgb 9.5 L, Hct 29.1 L, MCV 71.4 L, MCH 23.3 L, MCHC 32.6, RDW 21.5 H, Plt Count 291, MPV 7.9, Neut % (Auto) 73.8, Lymph % (Auto) 19.1, [place] % (Auto) 4.5, Eos % (Auto) 2.3, Baso % (Auto) 0.2, Neut # (Auto) 6.5, Lymph # (Auto) 1.7, [place] # (Auto) 0.4, Eos # (Auto) 0.2, Baso # (Auto) 0.0, Sodium 139, Potassium 4.2, Chloride 103, Carbon Dioxide 31 H, Anion Gap 9.2, BUN 22 H, Creatinine 1.10 H D, Estimated Creat Clear 39, Estimated GFR 49 L, Est GFR ( Amer) 59 D, Glucose 138 H, Calcium 9.1, Total Bilirubin 0.6, AST 31, ALT 34, Alkaline Phosphatase 112, Total Protein 6.9, Albumin 3.4 L, Globulin 3.5 H, Albumin/Globulin Ratio 1.0 L I & O for Last 24 hours: Intake & Output 09/03/23 09/04/23 09/05/23 09/06/23 23:59 23:59 23:59 23:59 Intake Total 660 / 660 330 / 570 940 / 1380 560 / 560 Output Total 1700 / 1700 0 / 0 900 / 900 0 / 0 Balance -1040 / -1040 330 / 570 40 / 480 560 / 560 Weight 112.207 kg 112.207 kg 110.767 kg 110 kg Microbiology Reports for the Last 24 Hours: Microbiology 09/01/23 23:08 Blood Blood Culture - Final 09/02/23 00:03 Blood Blood Culture - Final Constitutional Constitutional: no acute distress *Routine HEENT Exam Head: Present normocephalic Eye: Present EOMI and PERRL ENT: Present mucous membranes moist *Routine Neck Exam Neck: Present supple; Absent lymphadenopathy *Routine Respiratory Exam Respiratory: Present CTA bilaterally *Routine Cardiovascular Exam Cardiovascular: Present RRR *Routine Abdominal Exam Abdominal: Present soft and normoactive bowel sounds; Absent tenderness *Routine Extremities Exam Extremities: Absent cyanosis, clubbing or edema *Routine Skin Exam Skin: Present warm; Absent rash *Routine Neurological Exam Neurological: Present alert and oriented X3 Results Data Completed and Pending Labs on day of discharge: Labs from last 24 hours 09/06/23 09/06/23 09/05/23 05:43 05:40 22:00 WBC 8.8 RBC 4.08 L Hgb 9.5 L Hct 29.1 L MCV 71.4 L MCH 23.3 L MCHC 32.6 RDW 21.5 H Plt Count 291 MPV 7.9 Neut % (Auto) 73.8 Lymph % (Auto) 19.1 [place] % (Auto) 4.5 Eos % (Auto) 2.3 Baso % (Auto) 0.2 Neut # (Auto) 6.5 Lymph # (Auto) 1.7 [place] # (Auto) 0.4 Eos # (Auto) 0.2 Baso # (Auto) 0.0 Sodium 139 Potassium 4.2 Chloride 103 Carbon Dioxide 31 H Anion Gap 9.2 BUN 22 H Creatinine 1.10 H D Estimated Creat Clear 39 Estimated GFR 49 L Est GFR ( Amer) 59 D Glucose 138 H POC Glucose 154 H Calcium 9.1 Total Bilirubin 0.6 AST 31 ALT 34 Alkaline Phosphatase 112 Total Protein 6.9 Albumin 3.4 L Globulin 3.5 H Albumin/Globulin Ratio 1.0 L Random Gentamicin 5.3 09/05/23 09/05/23 09/05/23 20:08 16:19 14:40 WBC RBC Hgb Hct MCV MCH MCHC RDW Plt Count MPV Neut % (Auto) Lymph % (Auto) [place] % (Auto) Eos % (Auto) Baso % (Auto) Neut # (Auto) Lymph # (Auto) [place] # (Auto) Eos # (Auto) Baso # (Auto) Sodium Potassium Chloride Carbon Dioxide Anion Gap BUN Creatinine Estimated Creat Clear Estimated GFR Est GFR ( Amer) Glucose POC Glucose 177 H 159 H Calcium Total Bilirubin AST ALT Alkaline Phosphatase Total Protein Albumin Globulin Albumin/Globulin Ratio Random Gentamicin 9.9 09/05/23 10:02 WBC RBC Hgb Hct MCV MCH MCHC RDW Plt Count MPV Neut % (Auto) Lymph % (Auto) [place] % (Auto) Eos % (Auto) Baso % (Auto) Neut # (Auto) Lymph # (Auto) [place] # (Auto) Eos # (Auto) Baso # (Auto) Sodium Potassium Chloride Carbon Dioxide Anion Gap BUN Creatinine Estimated Creat Clear Estimated GFR Est GFR ( Amer) Glucose POC Glucose 175 H Calcium Total Bilirubin AST ALT Alkaline Phosphatase Total Protein Albumin Globulin Albumin/Globulin Ratio Random Gentamicin DS: Diagnosis Discharge Diagnosis (1) Bacteremia due to Enterococcus: Status: Acute Code(s): R78.81 - Bacteremia; B95.2 - Enterococcus as the cause of diseases classified elsewhere (2) Physical deconditioning: Status: Inactive Code(s): R53.81 - Other malaise (3) Iron deficiency anemia: Status: Acute Code(s): D50.9 - Iron deficiency anemia, unspecified (4) Hyponatremia: Status: Acute Code(s): E87.1 - Hypo-osmolality and hyponatremia (5) CHF (congestive heart failure): Status: Acute Code(s): I50.9 - Heart failure, unspecified Qualifiers: Heart failure chronicity: acute on chronic Heart failure type: unspecified Qualified Code(s): I50.9 - Heart failure, unspecified (6) Diabetes mellitus: Status: Inactive Code(s): E11.9 - Type 2 diabetes mellitus without complications Qualifiers: Diabetes mellitus type: type 2 Diabetes mellitus complication status: with hyperglycemia Diabetes mellitus [facility] insulin use: with [facility] use Qualified Code(s): E11.65 - Type 2 diabetes mellitus with hyperglycemia Problem details: type 2 non insulin dep (7) Hypertension: Status: Inactive Code(s): I10 - Essential (primary) hypertension Qualifiers: Hypertension type: essential hypertension Qualified Code(s): I10 - Essential (primary) hypertension (8) Hyperlipidemia: Status: Inactive Code(s): E78.5 - Hyperlipidemia, unspecified Qualifiers: Hyperlipidemia type: unspecified Qualified Code(s): E78.5 - Hyperlipidemia, unspecified (9) Morbid obesity with BMI of 40.0-44.9, adult: Status: Inactive Code(s): E66.01 - Morbid (severe) obesity due to excess calories; Z68.41 - Body mass index [BMI] 40.0-44.9, adult Meds Home Medications and Allergies Home Medications Medication Instructions Recorded Confirmed Type cholecalciferol (vitamin D3) 25 1,000 unit PO BID Supplement 08/11/20 09/02/23 History mcg (1,000 unit) capsule ascorbate calcium (vitamin C) 500 500 mg PO DAILY Supplement 11/30/20 09/02/23 History mg tablet albuterol sulfate 90 mcg/actuation 2 inh inhalation Q6HP PRN 08/01/22 09/02/23 History aerosol inhaler Shortness Of Breath Or Wheezing zinc acetate 50 mg (zinc) capsule 50 mg PO DAILY Supplement 10/06/22 09/02/23 History insulin detemir U-100 100 unit/mL 60 unit SQ BID Diabetes 07/04/23 09/02/23 History (3 mL) subcutaneous pen levothyroxine 50 mcg tablet 50 mcg PO DAILYDM THYROID 07/04/23 09/02/23 History metoclopramide HCl 5 mg tablet 5 mg PO BID STOMACH CRAMPS 07/04/23 09/02/23 History omeprazole 20 mg capsule,delayed 20 mg PO DAILY Acid Reflux 07/04/23 09/02/23 History release baclofen 10 mg tablet 10 mg PO BIDP PRN Muscle Spasm 07/05/23 09/02/23 History buspirone 5 mg tablet 5 mg PO HS Anxiety 07/05/23 09/02/23 History citalopram 40 mg tablet 40 mg PO DAILY Depression 07/05/23 09/02/23 History clopidogrel 75 mg tablet 75 mg PO DAILY Blood Thinner 07/05/23 09/02/23 History cranberry 1,000 mg capsule 1,500 mg PO DAILY Supplement 07/05/23 09/02/23 History dulaglutide 0.75 mg/0.5 mL 0.75 mg SQ SA Diabetes 07/05/23 09/02/23 History subcutaneous pen injector (Trulicity) ergocalciferol (vitamin D2) 1,250 50,000 unit PO TOMLINSON Supplement 07/05/23 09/02/23 History mcg (50,000 unit) capsule (Vitamin D2) fluticasone furoate 100 1 inh inhalation DAILY Copd 07/05/23 09/02/23 History mcg-vilanterol 25 mcg/dose inhalation powder (Breo Ellipta) apixaban 5 mg tablet (Eliquis) 5 mg PO BID Blood Thinner 09/02/23 09/02/23 History atorvastatin 40 mg tablet 40 mg PO HS Cholesterol 09/02/23 09/02/23 History bisoprolol fumarate 5 mg tablet 2.5 mg PO HS High Blood Pressure 09/02/23 09/02/23 History bumetanide 1 mg tablet 1 mg PO 0800,1400 Fluid 09/02/23 09/02/23 History gabapentin 800 mg tablet 800 mg PO TID NERVE PAIN 09/02/23 09/02/23 History hydrocodone 5 mg-acetaminophen 325 1 tab PO QIDP PRN Moderate Pain 09/02/23 09/02/23 History mg tablet (Scale Score 5-6) icosapent ethyl 1 gram capsule 2 g PO BID Cholesterol 09/02/23 09/02/23 History (Vascepa) insulin aspar prot-insulin aspart 60 unit SQ BID Diabetes 09/02/23 09/02/23 History 100 unit/mL (70-30) subcutaneous pen (Novolog Mix 70-30FlexPen U-100) irbesartan 75 mg tablet 37.5 mg PO DAILY High Blood 09/02/23 09/02/23 History Pressure meclizine 25 mg tablet 25 mg PO BIDP PRN Dizziness 09/02/23 09/02/23 History polyethylene glycol 3350 17 gram 17 g PO DAILY Constipation 09/02/23 09/02/23 History oral powder packet Gentamicin Sulfate [Gentamicin 100 mls/hr IV Q24H 09/06/23 Rx 80mg/2mL Vial] 440 mg Vancomycin HCl [Vancomycin 1000mg 125 mls/hr IV Q24H 09/06/23 Rx vial] 2,000 mg New Prescriptions to Start Prescriptions: Gentamicin Sulfate [Gentamicin 80mg/2mL Vial] 440 mg 0.9 % Sodium Chloride [Sod Chlor 0.9% 100mL Bag] 100 ml 100 mls/hr IV Q24H Vancomycin HCl [Vancomycin 1000mg vial] 2,000 mg 0.9 % Sodium Chloride [Sod Chlor 0.9% 250mL Bag] 250 ml 125 mls/hr IV Q24H Allergies Allergy/AdvReac Type Severity Reaction Status Date / Time Iodinated Contrast Media Allergy Intermediate Hives Verified 08/23/23 14:44 [Iodinated Contrast Media - IV Dye] celecoxib [From CELEBREX] Allergy Unknown SWELLING Verified 08/23/23 14:44 ibuprofen [IBUPROFEN] Allergy Unknown S-BLISTERING Verified 08/23/23 14:44 WELTS meloxicam [MELOXICAM] Allergy Unknown S-BLISTERING Verified 08/23/23 14:44 WELTS Penicillins [PENICILLINS] Allergy Unknown I-HIVES Verified 08/23/23 14:44 rofecoxib [From VIOXX] Allergy Unknown I-HIVES Verified 08/23/23 14:44 Discharge Plan Disposition Patient Disposition: [facility] Discharge Order Discharge Orders: Discharge Order (Routine); Ordered 09/06/23 Ordered By: Demetria Mendoza Follow up Plan Follow up with: Hilary Bagley PA [Primary Care Provider] - 2 weeks Prescriptions/Medication Reconciliation: New Gentamicin Sulfate [Gentamicin 80mg/2mL Vial] 440 MG 0.9 % Sodium Chloride [Sod Chlor 0.9% 100mL Bag] 100 ML 100 mls/hr IV Q24H Ordered By: Demetria Mendoza MD Last Taken: 09/06/23 08:09 100 mls/hr Vancomycin HCl [Vancomycin 1000mg vial] 2000 MG 0.9 % Sodium Chloride [Sod Chlor 0.9% 250mL Bag] 250 ML 125 mls/hr IV Q24H Ordered By: Demetria Mendoza MD Last Taken: 09/05/23 23:30 125 mls/hr Continued ascorbate calcium (vitamin C) 500 mg tablet 500 mg PO DAILY zinc acetate 50 mg (zinc) capsule 50 mg PO DAILY cholecalciferol (vitamin D3) 1,000 UNIT capsule 1,000 unit PO BID metoclopramide HCl 5 mg tablet 5 mg PO BID levothyroxine 50 mcg tablet 50 mcg PO DAILYDM omeprazole 20 mg capsule,delayed release(DR/EC) 20 mg PO DAILY insulin detemir U-100 100 unit/mL (3 mL) insulin pen 60 unit SQ BID buspirone 5 mg tablet 5 mg PO HS citalopram 40 mg tablet 40 mg PO DAILY clopidogrel 75 mg tablet 75 mg PO DAILY baclofen 10 mg tablet 10 mg PO BIDP PRN (Reason: Muscle Spasm) ergocalciferol (vitamin D2) [Vitamin D2] 1,250 mcg (50,000 unit) capsule 50,000 unit PO TOMLINSON fluticasone furoate-vilanterol [Breo Ellipta] 100-25 mcg/dose blister with device 1 inh inhalation DAILY Trulicity 0.75 mg/0.5 mL pen injector 0.75 mg SQ SA cranberry 1,000 mg Capsule 1,500 mg PO DAILY atorvastatin 40 mg tablet 40 mg PO HS Patient Comments: TAKE 1 TABLET 1 TIME EACH DAY AT BEDTIME hydrocodone-acetaminophen 5-325 mg tablet 1 tab PO QIDP PRN (Reason: Moderate Pain (Scale Score 5-6)) Patient Comments: 1 TAB orally four times a day As Needed for pain bisoprolol fumarate 5 mg tablet 2.5 mg PO HS Patient Comments: TAKE 1 TABLET 1 TIME EACH DAY gabapentin 800 mg tablet 800 mg PO TID Patient Comments: 800 mg orally three times a day meclizine 25 mg tablet 25 mg PO BIDP PRN (Reason: Dizziness) Patient Comments: TAKE 1 TABLET 2 TIMES EACH DAY FOR NAUSEA AND VOMITING irbesartan 75 mg tablet 37.5 mg PO DAILY Patient Comments: TAKE 1/2 TABLET 1 TIME EACH DAY bumetanide 1 mg Tablet 1 mg PO 0800,1400 insulin asp prt-insulin aspart [Novolog Mix 70-30FlexPen U-100] 100 unit/mL (70-30) Insulin Pen 60 unit SQ BID icosapent ethyl [Vascepa] 1 gram capsule 2 g PO BID Patient Comments: TAKE 2 CAPSULES 2 TIMES EACH DAY Eliquis 5 mg tablet 5 mg PO BID Patient Comments: TAKE 1 TABLET 2 TIMES EACH DAY polyethylene glycol 3350 17 gram Powder In Packet 17 g PO DAILY albuterol sulfate 90 mcg/actuation HFA aerosol inhaler 2 inh INHALATION Q6HP PRN (Reason: Shortness Of Breath Or Wheezing) Patient Comments: INHALE 2 TIMES 4 TIMES EACH DAY NEEDED FOR SHORTNESS OF BREATH OR WHEEZING Problem Reconciliation Problems Reviewed?: Yes Patient Discharge Instructions ACTIVITY: Ambulate as tolerated DIET: continue same diet Patient Instructions: DI for Heart Failure, DI for Iron Deficiency Anemia-Adult, DI for Hyponatremia, Peripherally Inserted Central Catheter Infections, DI for Bacteremia-Adult, Catheter-Associated Urinary Tract Infection Providers Primary Care Provider: Hilary Bagley Admit Provider: Ronnie Sethi Attending Provider: Ronnie Sethi
[2023-09-06 09:58] LABS: Magnesium 2.1 mg/dl (1.6-2.3)
[2023-09-06 19:27] LABS: POC Glucose,Bedside 165 (70-110)
== END 2023-09-06 13:48 | DRG 872 ==
LOC: ER 20:47 → 2ND 20:50
PROVIDERS: Nurse Practitioner Family; Admitting Provider Internal Medicine Adolescent Medicine; Emergency Provider Emergency Medicine; PCP Physician Assistant; Visit Provider Internal Medicine Adolescent Medicine
DX: R78.81 Bacteremia (principal); E87.1 Hypo-osmolality and hyponatremia; Z68.41 Body mass index [BMI] 40.0-44.9, adult; D50.9 Iron deficiency anemia, unspecified; I50.9 Heart failure, unspecified; E11.65 Type 2 diabetes mellitus with hyperglycemia; E78.5 Hyperlipidemia, unspecified; E66.01 Morbid (severe) obesity due to excess calories; I48.91 Unspecified atrial fibrillation; Z95.1 Presence of aortocoronary bypass graft; E11.43 Type 2 diabetes mellitus with diabetic autonomic (poly)neuropathy; K31.84 Gastroparesis; G89.29 Other chronic pain; I35.0 Nonrheumatic aortic (valve) stenosis; E03.9 Hypothyroidism, unspecified; G47.33 Obstructive sleep apnea (adult) (pediatric); I27.20 Pulmonary hypertension, unspecified; I11.0 Hypertensive heart disease with heart failure; D64.9 Anemia, unspecified
CPT/HCPCS: 36415; 36569; 70450; 71045; 72125; 72128; 72131; 72192; 80048; 80053; 80170; 80202; 81001; 82728; 82962; 83540; 83550; 83605; 83735; 83880; 85007; 85014; 85018; 85025; 85048; 85049; 86140; 86850; 87040; 93005; 93306; 94640; 97110; 97161; 97165; 97530; 99285; C1751; J1756; J2405; J3370; P9016

== ENCOUNTER 2023-09-26 21:26 | Inpatient (IN) | payer MEDICARE, MEDICAID, SELFPAY ==
[2023-09-26 21:26] VITALS: BP 150/71; PULSE 57; RESP 19; TEMP 36.6; O2SAT 100; BMI 41.8
--- NOTE | 2023-09-26 21:29 | ED_ITS ---
Discharge Plan Disposition Patient Disposition: Admitted Condition: Fair Clinical Impressions Clinical Impression: AMS (altered mental status), General weakness, Acute renal failure, Acute UTI, Uremia Discharge ED Provider: Yisel Benito General Adult HPI <Yisel Benito DO - Last Filed: 09/26/23 23:33> General Chief complaint: Weakness Stated complaint: weakness Time Seen by Provider: 09/26/23 21:29 History of Present Illness HPI narrative: This patient is a 73-year-old female with a history of hypertension, hyperlipidemia, aortic stenosis, mitral valve regurgitation, CAD status post CABG, A-fib on Eliquis, CHF on 2.5 L nasal cannula, diabetes, COPD on nightly BiPAP, and obesity according to medical record review presenting with concern for general debility, weakness, and persistent decline in mental status. According to EMS who was contacted by the patient's family, the patient was admitted to the hospital, discharged home to nursing facility, and the nursing facility subsequently sent her home because insurance stopped paying after 21 days. Since going home, she continues to have functional decline, and family is having trouble caring for her at home per EMS. Patient does not contribute much to history, as she reportedly has poor mental status at baseline. She responds and follows commands, however she does not answer questions appropriately. On medical record review, she was admitted here 09/01/2023 through 09/06/2023 with concern for bacteremia. It was from this visit that [facility]. Prior to that, she had been seen multiple times in the emergency department for functional decline. Patient's caregiver arrives and notes that she had actually been doing better, and Monday was independently changing herself. She had a progressive decline since then and today was very confused, to the point where they were having trouble getting her to take her medications and to eat/drink. Related Data Home Medications Medication Instructions Recorded Confirmed albuterol 90 mcg/actuation aerosol 180 mcg inhalation QID 09/26/23 09/26/23 inhaler apixaban 5 mg tablet (Eliquis) 5 mg PO BID 09/26/23 09/26/23 ascorbic acid (vitamin C) 500 mg 500 mg PO DAILY 09/26/23 09/26/23 tablet (Vitamin C) atorvastatin 40 mg tablet 40 mg PO HS 09/26/23 09/26/23 baclofen 10 mg tablet 10 mg PO BID 09/26/23 09/26/23 bisoprolol fumarate 5 mg tablet 2.5 mg PO DAILY 09/26/23 09/26/23 bumetanide 1 mg tablet 1 mg PO BID 09/26/23 09/26/23 buspirone 5 mg tablet 5 mg PO DAILY 09/26/23 09/26/23 citalopram 40 mg tablet 40 mg PO DAILY 09/26/23 09/26/23 clopidogrel 75 mg tablet 75 mg PO DAILY 09/26/23 09/26/23 dulaglutide 0.75 mg/0.5 mL 0.75 mg SQ WEEKLY 09/26/23 09/26/23 subcutaneous pen injector (Trulicity) ferrous sulfate 325 mg (65 mg 325 mg PO DAILY 09/26/23 09/26/23 iron) tablet (iron) fluticasone furoate 100 1 inh inhalation DAILY 09/26/23 09/26/23 mcg-vilanterol 25 mcg/dose inhalation powder (Breo Ellipta) gabapentin 800 mg tablet 800 mg PO TID 09/26/23 09/26/23 hydrocodone 5 mg-acetaminophen 325 1 tab PO QIDP PRN Pain 09/26/23 09/26/23 mg tablet icosapent ethyl 1 gram capsule 2 g PO BID 09/26/23 09/26/23 insulin aspar prot-insulin aspart 60 unit SQ BID 09/26/23 09/26/23 100 unit/mL (70-30) subcutaneous pen (Novolog Mix 70-30FlexPen U-100) insulin detemir U-100 100 unit/mL 60 unit SQ BID 09/26/23 09/26/23 (3 mL) subcutaneous pen (Levemir FlexPen) levothyroxine 50 mcg tablet 50 mcg PO DAILY 09/26/23 09/26/23 metoclopramide HCl 5 mg tablet 5 mg PO BID 09/26/23 09/26/23 multivitamin 1 tab PO DAILY 09/26/23 09/26/23 omeprazole 20 mg capsule,delayed 20 mg PO DAILY 09/26/23 09/26/23 release polyethylene glycol 3350 17 gram 17 g PO DAILY 09/26/23 09/26/23 oral powder packet (Miralax) zinc 50 mg tablet 50 mg PO DAILY 09/26/23 09/26/23 Allergies Allergy/AdvReac Type Severity Reaction Status Date / Time Iodinated Contrast Media Allergy Intermediate Hives Verified 08/23/23 14:44 [Iodinated Contrast Media - IV Dye] celecoxib [From CELEBREX] Allergy Unknown SWELLING Verified 08/23/23 14:44 ibuprofen [IBUPROFEN] Allergy Unknown S-BLISTERING Verified 08/23/23 14:44 WELTS meloxicam [MELOXICAM] Allergy Unknown S-BLISTERING Verified 08/23/23 14:44 WELTS Penicillins [PENICILLINS] Allergy Unknown I-HIVES Verified 08/23/23 14:44 rofecoxib [From VIOXX] Allergy Unknown I-HIVES Verified 08/23/23 14:44 [facility] <Yisel Benito DO - Last Filed: 09/26/23 23:33> [facility] Disclaimer: The information contained in this section may have been updated after the patient was seen, as this information can be updated by other users. Medical History Abnormal PFT Acute hip pain Acute on chronic diastolic heart failure Adult failure to thrive Anemia Anxiety Aortic stenosis Asthma exacerbation in COPD Atrial fibrillation Atrial fibrillation Atypical angina Atypical chest pain Bacteremia Bilateral swelling of feet Biventricular CHF (congestive heart failure) CHF (congestive heart failure) CHF exacerbation Chronic hypoxemic respiratory failure Chronic pain Contrast media allergy COPD (chronic obstructive pulmonary disease) Coronary artery disease Depression Diabetes mellitus Diabetic gastroparesis associated with type 2 diabetes mellitus Diabetic neuropathy associated with type 2 diabetes mellitus Diarrhea Dyspnea Dyspnea on exertion Dyspnea on exertion GERD (gastroesophageal reflux disease) History of 2019 novel coronavirus disease (COVID-19) Hyperlipidemia Hypertension Hyponatremia Hypothyroidism Hypoxemia IDDM (insulin dependent diabetes mellitus) Intermittent confusion Iron deficiency anemia Low back pain Lumbar disc disease Lumbar disc disease with radiculopathy Lumbar radiculopathy Lumbar radiculopathy, chronic Lumbar radiculopathy, chronic Morbid obesity with BMI of 40.0-44.9, adult Nocturnal hypoxemia Non-STEMI (non-ST elevated myocardial infarction) ERICKSON (obstructive sleep apnea) ERICKSON (obstructive sleep apnea) Physical deconditioning Physical deconditioning Pneumonia Pneumonia Proliferative diabetic retinopathy Pulmonary HTN Pulmonary hypertension Restrictive lung disease Restrictive lung disease Sciatica associated with disorder of lumbar spine Severe pulmonary hypertension Sleep disorder breathing Stopped smoking with greater than 30 pack year history Typical angina Urinary incontinence Vertigo Vitamin D deficiency Weakness Surgical History History of cataract surgery History of eye surgery History of heart valve replacement History of lumpectomy Hx of CABG Family History Other Cancer Diabetes Heart attack Hyperlipidemia Hypertension Stroke Thyroid disorder Social History Smoking Status: Former smoker tobacco type: cigarettes packs per day: 1 second hand exposure: No alcohol intake: never substance use type: denies use current occupational status: unemployed Travel in the last 8 weeks: None household members: children housing: house current occupational exposures/hazards: No caffeine: Yes <Yisel Benito DO - Last Filed: 09/26/23 23:33> ROS Obtained: Yes All systems reviewed & no additional complaints except as documented Physical Exam <Yisel Benito DO - Last Filed: 09/26/23 23:33> General General appearance: alert, in no apparent distress and obese Head Head exam: atraumatic and normocephalic Eye Eye exam: Present normal appearance, PERRL and EOMI ENT ENT exam: Present normal exam, normal oropharynx, mucous membranes moist and normal external ear exam Neck Neck exam: Present normal inspection, full ROM and trachea midline; Absent tenderness Chest Chest inspection: Present normal inspection and symmetric chest wall rise; Absent tenderness Respiratory Respiratory exam: Present normal lung sounds bilaterally; Absent respiratory distress, wheezes, stridor or accessory muscle use Cardiovascular Cardiovascular exam: Present regular rate and normal rhythm Abdominal Exam Abdominal exam: Present soft; Absent distention, tenderness or guarding Extremities Exam Extremities exam: Present normal inspection, full ROM and normal capillary refill; Absent tenderness or edema Back Exam Back exam: Present normal inspection and full ROM; Absent tenderness Neurological Exam Neurological exam: Present alert, CN II-XII intact and other (Patient is alert and responsive. She follows commands, but she does not answer questions including orientation questions appropriately.); Absent oriented X3 or motor sensory deficit Psychiatric Psychiatric exam: Present normal affect and normal mood Skin Skin exam: Present warm and dry Medical Decision Making <Yisel Benito DO - Last Filed: 09/26/23 23:33> Medical Records Medical records reviewed: Yes I reviewed the patient's medical records. Sam Inquiry Pt receiving controlled substance: No Vital Signs: 09/26/23 21:26 09/26/23 22:30 09/26/23 23:00 Temperature 97.8 F Temperature Source Oral Pulse Rate 62 57 L Pulse Rate [Left] 57 L Respiratory Rate 19 17 12 Blood Pressure 148/68 H 124/87 Blood Pressure [Right Arm] 150/71 H Blood Pressure Mean [Right Arm] 97 Blood Pressure Source Blood Pressure Source [Right Arm] Automatic Cuff Blood Pressure Position Blood Pressure Position [Right Arm] Sitting 02 Sat by Pulse Oximetry 100 100 99 Oxygen Delivery Method Nasal Cannula Oxygen Flow Rate (LPM) 09/26/23 23:30 09/27/23 00:49 Temperature 97.8 F Temperature Source Oral Pulse Rate 60 54 L Pulse Rate [Left] Respiratory Rate 14 16 Blood Pressure 150/71 H 115/52 L Blood Pressure [Right Arm] Blood Pressure Mean [Right Arm] Blood Pressure Source Automatic Cuff Blood Pressure Source [Right Arm] Blood Pressure Position Supine Blood Pressure Position [Right Arm] 02 Sat by Pulse Oximetry 100 Oxygen Delivery Method Nasal Cannula Oxygen Flow Rate (LPM) 3 Lab Data Lab results reviewed: Yes I reviewed the patient's lab results. Lab Results 09/26/23 21:31: SARS-CoV-2 (PCR) Not detected, Influenza A Untype (PCR) Not detected, Influenza Type B (PCR) Not detected 09/26/23 21:34: WBC 9.7, RBC 3.88 L, Hgb 9.2 L, Hct 29.7 L, MCV 76.5 L, MCH 23.7 L, MCHC 31.0 L, RDW 22.0 H, Plt Count 292, MPV 8.8, Neut % (Auto) 76.8, Lymph % (Auto) 16.0, [place] % (Auto) 5.8, Eos % (Auto) 1.0, Baso % (Auto) 0.5, Neut # (Auto) 7.4, Lymph # (Auto) 1.5, [place] # (Auto) 0.6, Eos # (Auto) 0.1, Baso # (Auto) 0.0, Sodium 140, Potassium 5.3 H, Chloride 108 H, Carbon Dioxide 25, Anion Gap 12.3, BUN 63 H, Creatinine 3.80 H, Estimated Creat Clear 11, Estimated GFR 12 L*, Est GFR ( Amer) 14 L*, Glucose 101 H, Lactate 0.9, Calcium 9.2, Magnesium 1.8, Total Bilirubin 0.3, AST 27, ALT 23, Alkaline Phosphatase 128 H, Troponin I < 0.01, NT-Pro-B Natriuret Pep 536 H, Total Protein 7.1, Albumin 3.6, Globulin 3.5 H, Albumin/Globulin Ratio 1.0 L, TSH 1.72, Thyroxine (T4) 7.1 09/26/23 21:40: VBG pH 7.33, VBG pCO2 46.7, VBG pO2 97.1 H, VBG HCO3 23.8, VBG Total CO2 25.3, VBG O2 Saturation 97.2 H, VBG Base Excess -2.2, VBG Lactic Acid 1.7 09/26/23 22:51: Urine Color Yellow, Urine Appearance Clear, Urine pH 6.0, Ur Specific [place] 1.010, Urine Protein Trace, Urine Glucose (UA) Negative, Urine Ketones Negative, Urine Blood 3+, Urine Nitrate Negative, Urine Bilirubin Negative, Urine Urobilinogen 0.2, Ur Leukocyte Esterase 1+ A, Urine RBC 3-5, Urine WBC 5-10, Ur Squamous Epith Cells 3-5, Urine Bacteria None 09/27/23 00:32: Troponin I < 0.01 09/26/23 21:34 09/26/23 21:34 Orders (Tests/Meds): ED MEDICATIONS Generic Name Dose Route Start Last Admin Trade Name Freq PRN Reason Stop Dose Admin Ceftriaxone Sodium 2 gm/ 100 mls @ 200 mls/hr 09/27/23 00:34 09/27/23 00:38 Sodium Chloride IV 09/27/23 01:03 200 mls/hr ONCE ONE Administration Sodium Zirconium Cyclosilicate 10 gm 09/27/23 09:00 Lokelma 5gm Packet PO 09/27/23 09:01 ONCE ONE Discontinued Medications Generic Name Dose Route Start Last Admin Trade Name Freq PRN Reason Stop Dose Admin Lactated Ringer's 1,000 mls @ 999 mls/hr 09/26/23 22:04 09/26/23 22:17 Lactated Ringer's 1000 Ml Bag IV 09/26/23 23:04 999 mls/hr .Q1H1M ONE Administration ORDERS Category Date Time Status CT abdomen pelvis wo con Stat Cat Scan 09/26/23 23:[address] head/brain wo con Stat Cat Scan 09/26/23 21:41 Completed XR chest portable Stat Exams 09/26/23 21:33 Completed BMP [Basic Metabolic Panel] AMLAB Lab 09/27/23 06:00 Ordered Brain Natriuretic Peptide Stat Lab 09/26/23 21:34 Completed CBC w/Auto Diff [Complete Blood Count Auto Diff] AMLAB Lab 09/27/23 06:00 Ordered CBC w/Auto Diff [Complete Blood Count Auto Diff] Stat Lab 09/26/23 21:34 Completed Comprehensive Metabolic Panel Stat Lab 09/26/23 21:34 Completed Lactate Venous Routine Lab 09/26/23 21:40 Completed Lactic Acid Stat Lab 09/26/23 21:34 Completed Magnesium Stat Lab 09/26/23 21:34 Completed Rapid PCR Covid and Flu A/B Stat Lab 09/26/23 21:31 Ordered T4 (Thyroxine) Stat Lab 09/26/23 21:34 Completed Thyroid Stimulating Hormone Stat Lab 09/26/23 21:34 Completed Troponin I Q3H Lab 09/27/23 00:32 Completed Troponin I Q3H Lab 09/27/23 03:45 Ordered Troponin I Stat Lab 09/26/23 21:34 Completed Urinalysis and Microscopic Stat Lab 09/26/23 22:51 Completed Blood Culture Stat Micro 09/26/23 23:10 Ordered Urine Culture Stat Micro 09/26/23 22:51 Received Venous Blood Gas Routine RT 09/26/23 21:40 Completed Venous Blood Gas Stat RT 09/26/23 21:33 Ordered ECG Data Tracing #1: I reviewed this ECG and interpreted as documented below: Sinus bradycardia with a ventricular rate of 57 bpm. Right bundle branch block noted. No STEMI. No changes from prior EKG. ECG initial impression date: 09/26/23 ECG initial impression time: 21:53 Medical Decision Narrative: In summary, this patient is a 73 year old female presenting to the Emergency Department for evaluation of continued general weakness. Patient had admission last month for bacteremia and has not seemed to make a good recovery. She was discharged home back to nursing facility after her insurance had met the maximum amount of days that they would pay. Differential diagnoses considered include but are not limited to urinary tract infection, pneumonia, viral syndrome, p rogressive functional decline, sepsis. Ruling out the most morbid conditions drove assessment. On exam, the patient is nontoxic-appearing with reassuring vital signs on cardiac telemetry. She is in no acute distress. Per EMS who is family with the patient, this is her baseline. Workup included broad lab evaluation to evaluate for possible metabolic, infectious, and cardiac causes of decline, though this does not seem to be acute. I independently interpreted chest x-ray and CT scan of the head prior to the radiologist read and noted no obvious acutely concerning abnormalities such as intracranial hemorrhage or pneumonia. Please see their read for final interpretation. Labs were obtained that demonstrated acute renal failure with a creatinine of 3.8 up from patient's baseline of around 1-2. She has mild hyperkalemia with no significant EKG changes. EKG is reassuring. Urinalysis demonstrates leukocyte esterase and hematuria. It is possible this is just a result of infection, however given the degree of acute renal failure, CT scan of the abdomen and pelvis without IV contrast was obtained to evaluate for acute obstructive process. Patient was given a liter bolus of IV fluids. Patient presented to the oncoming provider, Dr. Aquino. <Thomas Aquino MD - Last Filed: 09/27/23 01:08> Vital Signs: 09/26/23 21:26 09/26/23 22:30 09/26/23 23:00 Temperature 97.8 F Temperature Source Oral Pulse Rate 62 57 L Pulse Rate [Left] 57 L Respiratory Rate 19 17 12 Blood Pressure 148/68 H 124/87 Blood Pressure [Right Arm] 150/71 H Blood Pressure Mean [Right Arm] 97 Blood Pressure Source Blood Pressure Source [Right Arm] Automatic Cuff Blood Pressure Position Blood Pressure Position [Right Arm] Sitting 02 Sat by Pulse Oximetry 100 100 99 Oxygen Delivery Method Nasal Cannula Oxygen Flow Rate (LPM) 09/26/23 23:30 09/27/23 00:49 Temperature 97.8 F Temperature Source Oral Pulse Rate 60 54 L Pulse Rate [Left] Respiratory Rate 14 16 Blood Pressure 150/71 H 115/52 L Blood Pressure [Right Arm] Blood Pressure Mean [Right Arm] Blood Pressure Source Automatic Cuff Blood Pressure Source [Right Arm] Blood Pressure Position Supine Blood Pressure Position [Right Arm] 02 Sat by Pulse Oximetry 100 Oxygen Delivery Method Nasal Cannula Oxygen Flow Rate (LPM) 3 Lab Data Lab Results 09/26/23 21:31: SARS-CoV-2 (PCR) Not detected, Influenza A Untype (PCR) Not detected, Influenza Type B (PCR) Not detected 09/26/23 21:34: WBC 9.7, RBC 3.88 L, Hgb 9.2 L, Hct 29.7 L, MCV 76.5 L, MCH 23.7 L, MCHC 31.0 L, RDW 22.0 H, Plt Count 292, MPV 8.8, Neut % (Auto) 76.8, Lymph % (Auto) 16.0, [place] % (Auto) 5.8, Eos % (Auto) 1.0, Baso % (Auto) 0.5, Neut # (Auto) 7.4, Lymph # (Auto) 1.5, [place] # (Auto) 0.6, Eos # (Auto) 0.1, Baso # (Auto) 0.0, Sodium 140, Potassium 5.3 H, Chloride 108 H, Carbon Dioxide 25, Anion Gap 12.3, BUN 63 H, Creatinine 3.80 H, Estimated Creat Clear 11, Estimated GFR 12 L*, Est GFR ( Amer) 14 L*, Glucose 101 H, Lactate 0.9, Calcium 9.2, Magnesium 1.8, Total Bilirubin 0.3, AST 27, ALT 23, Alkaline Phosphatase 128 H, Troponin I < 0.01, NT-Pro-B Natriuret Pep 536 H, Total Protein 7.1, Albumin 3.6, Globulin 3.5 H, Albumin/Globulin Ratio 1.0 L, TSH 1.72, Thyroxine (T4) 7.1 09/26/23 21:40: VBG pH 7.33, VBG pCO2 46.7, VBG pO2 97.1 H, VBG HCO3 23.8, VBG Total CO2 25.3, VBG O2 Saturation 97.2 H, VBG Base Excess -2.2, VBG Lactic Acid 1.7 09/26/23 22:51: Urine Color Yellow, Urine Appearance Clear, Urine pH 6.0, Ur Specific [place] 1.010, Urine Protein Trace, Urine Glucose (UA) Negative, Urine Ketones Negative, Urine Blood 3+, Urine Nitrate Negative, Urine Bilirubin Negative, Urine Urobilinogen 0.2, Ur Leukocyte Esterase 1+ A, Urine RBC 3-5, Urine WBC 5-10, Ur Squamous Epith Cells 3-5, Urine Bacteria None 09/27/23 00:32: Troponin I < 0.01 Orders (Tests/Meds): ED MEDICATIONS Generic Name Dose Route Start Last Admin Trade Name Freq PRN Reason Stop Dose Admin Ceftriaxone Sodium 2 gm/ 100 mls @ 200 mls/hr 09/27/23 00:34 09/27/23 00:38 Sodium Chloride IV 09/27/23 01:03 200 mls/hr ONCE ONE Administration Sodium Zirconium Cyclosilicate 10 gm 09/27/23 09:00 Lokelma 5gm Packet PO 09/27/23 09:01 ONCE ONE Discontinued Medications Generic Name Dose Route Start Last Admin Trade Name Freq PRN Reason Stop Dose Admin Lactated Ringer's 1,000 mls @ 999 mls/hr 09/26/23 22:04 09/26/23 22:17 Lactated Ringer's 1000 Ml Bag IV 09/26/23 23:04 999 mls/hr .Q1H1M ONE Administration ORDERS Category Date Time Status CT abdomen pelvis wo con Stat Cat Scan 09/26/23 23:[address] head/brain wo con Stat Cat Scan 09/26/23 21:41 Completed XR chest portable Stat Exams 09/26/23 21:33 Completed BMP [Basic Metabolic Panel] AMLAB Lab 09/27/23 06:00 Ordered Brain Natriuretic Peptide Stat Lab 09/26/23 21:34 Completed CBC w/Auto Diff [Complete Blood Count Auto Diff] AMLAB Lab 09/27/23 06:00 Ordered CBC w/Auto Diff [Complete Blood Count Auto Diff] Stat Lab 09/26/23 21:34 Completed Comprehensive Metabolic Panel Stat Lab 09/26/23 21:34 Completed Lactate Venous Routine Lab 09/26/23 21:40 Completed Lactic Acid Stat Lab 09/26/23 21:34 Completed Magnesium Stat Lab 09/26/23 21:34 Completed Rapid PCR Covid and Flu A/B Stat Lab 09/26/23 21:31 Ordered T4 (Thyroxine) Stat Lab 09/26/23 21:34 Completed Thyroid Stimulating Hormone Stat Lab 09/26/23 21:34 Completed Troponin I Q3H Lab 09/27/23 00:32 Completed Troponin I Q3H Lab 09/27/23 03:45 Ordered Troponin I Stat Lab 09/26/23 21:34 Completed Urinalysis and Microscopic Stat Lab 09/26/23 22:51 Completed Blood Culture Stat Micro 03/05/24 23:10 Ordered Urine Culture Stat Micro 09/26/23 22:51 Received Venous Blood Gas Routine RT 09/26/23 21:40 Completed Venous Blood Gas Stat RT 09/26/23 21:33 Ordered Medical Decision Narrative: In summary, this patient is a 73 year old female presenting to the Emergency Department for evaluation of continued general weakness. Patient had admission last month for bacteremia and has not seemed to make a good recovery. She was discharged home back to nursing facility after her insurance had met the maximum amount of days that they would pay. Differential diagnoses considered include but are not limited to urinary tract infection, pneumonia, viral syndrome, progressive functional decline, sepsis. Ruling out the most morbid conditions drove assessment. On exam, the patient is nontoxic-appearing with reassuring vital signs on cardiac telemetry. She is in no acute distress. Per EMS who is family with the patient, this is her baseline. Workup included broad lab evaluation to evaluate for possible metabolic, infectious, and cardiac causes of decline, though this does not seem to be acute. I independently interpreted chest x-ray and CT scan of the head prior to the radiologist read and noted no obvious acutely concerning abnormalities such as intracranial hemorrhage or pneumonia. Please see their read for final interpretation. Labs were obtained that demonstrated acute renal failure with a creatinine of 3.8 up from patient's baseline of around 1-2. She has mild hyperkalemia with no significant EKG changes. EKG is reassuring. Urinalysis demonstrates leukocyte esterase and hematuria. It is possible this is just a result of infection, however given the degree of acute renal failure, CT scan of the abdomen and pelvis without IV contrast was obtained to evaluate for acute obstructive process. Patient was given a liter bolus of IV fluids. Patient presented to the oncoming provider, Dr. Aquino. Miles ACE: I assumed care of the patient at the time of handoff from the prior provider. On reassessment, on much rotation of radiographic imaging, CT scan shows no evid ence of obstructive pathology, specifically no hydronephrosis. Patient was given Lokelma. Urine shows 5-10 WBCs on cath specimen. Nitrate negative. Will treat as UTI, initiated on IV ceftriaxone for empiric coverage. Interactive discussion was had with the hospitalist on-call for admission. Critical Care <Yisel Benito, DO - Last Filed: 09/26/23 23:33> Critical Care Time Critical Care Time: No
--- NOTE | 2023-09-26 21:33 | XR_ITS ---
PROCEDURE INFORMATION: Exam: XR Chest Exam date and time: 09/26/2023 9:36 PM Age: 73 years old Clinical indication: Other: AMS TECHNIQUE: Imaging protocol: Radiologic exam of the chest. Views: 1 view. COMPARISON: CR XR CHEST PORTABLE PICC PLAC 09/05/2023 12:10 PM FINDINGS: Tubes, catheters and devices: Interval removal of the left PICC. Lungs: No evidence of acute pulmonary disease or infiltrates There is mild prominence of the perihilar lung markings which could be related to crowding. Pleural spaces: No large effusion or pneumothorax. Heart/Mediastinum: No evidence of mediastinal widening or cardiac silhouette enlargement; the mediastinum and heart appear within normal limits for contour and size. Diaphragm: There is elevation of the left hemidiaphragm. Bones/joints: No evidence of acute osseous abnormalities within the visualized portions of the thoracic spine and ribs. Osseous structures appear appropriate for patient age. The patient is status post median sternotomy. Other findings: There is a low level of inspiration. The examination is limited by under penetration. IMPRESSION: No dense parenchymal consolidation, pleural effusion, or pneumothorax.
--- NOTE | 2023-09-26 21:41 | CT_ITS ---
PROCEDURE INFORMATION: Exam: CT Head Without Contrast Exam date and time: 09/26/2023 9:57 PM Age: 73 years old Clinical indication: Altered mental status/memory loss; Additional info: AMS TECHNIQUE: Imaging protocol: Computed tomography of the head without contrast. Radiation optimization: All CT scans at this facility use at least one of these dose optimization techniques: automated exposure control; mA and/or kV adjustment per patient size (includes targeted exams where dose is matched to clinical indication); or iterative reconstruction. COMPARISON: 1. CT HEAD/BRAIN WO CON 09/01/2023 7:[address] HEAD/BRAIN WO CON 08/22/2023 6:49 PM FINDINGS: Brain: The brain parenchyma appears unremarkable, with no signs of acute intracranial hemorrhage or significant mass effect. There is hypodensity in the subcortical and periventricular white matter which is technically nonspecific but most often related to chronic microvascular disease. Cerebral ventricles: Mild ventricular enlargement consistent with age-related cerebral atrophy is noted. Paranasal sinuses: Paranasal sinuses show age-appropriate mucosal thickening. Mastoid air cells: Visualized mastoid air cells are well aerated. Bones/joints: There are no skull fractures or bony lesions. Soft tissues: Unremarkable. IMPRESSION: Presumably age-related and chronic changes without acute intracranial abnormality.
[2023-09-26 21:45] LABS: Lactate Venous 1.7 mmol/L (0.4-2.0); VBG Base Excess -2.2 mmol/L (-2.4-2.3); VBG HCO3 23.8 mmol/L (23-30); VBG Oxygen Saturation 97.2 % (50-70); VBG PCO2 46.7 mmol/L (35-51); VBG PH 7.33 mmol/L (7.31-7.41); VBG PO2 97.1 mmol/L (28-40); VBG Total CO2 25.3 mmol/L (23-27)
[2023-09-26 21:47] LABS: Basophils % 0.5 % (0.1-2.0); Eosinophils # 0.1 K/mm3 (0.0-0.4); Hematocrit 29.7 % (37.0-47.0); Hemoglobin 9.2 g/dL (12.2-16.2); Lymphocytes # 1.5 K/mm3 (0.7-4.5); Mean Corpuscular Hemoglobin 23.7 pg (27.0-31.2); Mean Corpuscular Volume 76.5 fl (81-99); Mean Platelet Volume 8.8 fl (7.4-10.4); Monocytes # 0.6 K/mm3 (0.1-1.0); Monocytes % 5.8 % (1.7-9.3); Neutrophils # 7.4 K/mm3 (1.8-7.8); Neutrophils % 76.8 % (37.0-80.0); Platelet Count 292 K/mm3 (142-424); Red Blood Count 3.88 M/mm3 (4.20-5.40); White Blood Count 9.7 K/mm3 (4.8-10.8)
[2023-09-26 21:48] LABS: Chloride 108 mmol/L (98-107)
[2023-09-26 21:49] LABS: Potassium 5.3 mmoL/L (3.5-5.1); Sodium 140 mmol/L (136-145)
[2023-09-26 21:51] LABS: Alanine Aminotransferase 23 U/L (12-78); Aspartate Amino Transferase 27 U/L (14-36); Bilirubin,Total 0.3 mg/dl (0.2-1.3); Blood Urea Nitrogen 63 mg/dl (7-17); Creatinine Clearance Estimated 11 mL/min (50-200); Estimated Glomerular Filt Rate 12 ml/min (>60); GFR (African American) 14 ML/MIN (>60)
--- NOTE | 2023-09-26 21:51 | ECG_ITS ---
APPROVED REPORT Exam: Resting ECG HR:57 bpm ECG Measurements Heart Rate 57 AXES ND 192 P 44 QRSd 140 QRS 22 QT 440 T 45 QTc 433 Conclusion SINUS BRADYCARDIA WITH OCCASIONAL SUPRAVENTRICULAR PREMATURE COMPLEXES RIGHT BUNDLE BRANCH BLOCK [120+ ms QRS DURATION, UPRIGHT V1, 40+ ms S IN I/aVL/V4/V5/V6] No significant changes noted from prior EKG Electronically signed by : NAJMA CAMACHO, 09/27/2023 00:24:35
[2023-09-26 21:52] LABS: Albumin Level 3.6 g/dl (3.5-5.0); Alkaline Phosphatase 128 U/L (38-126); Anion Gap 12.3 mEq/L (5-15); Calcium 9.2 mg/dl (8.4-10.2); Carbon Dioxide 25 mmol/L (22.0-30.0); Globulin 3.5 g/dL (1.3-3.2); Glucose 101 mg/dl (74-100); Magnesium 1.8 mg/dl (1.6-2.3); Total Protein,Serum 7.1 g/dl (6.3-8.2)
[2023-09-26 21:55] LABS: Coronavirus 19, PCR Not Detected (NotDetected); Influenza A, PCR Not Detected (NotDetected); Influenza B, PCR Not Detected (NotDetected)
[2023-09-26 21:57] LABS: Lactic Acid 0.9 mmol/L (0.7-2.1)
[2023-09-26 22:01] LABS: NT Pro Brain Natriuretic Pep. 536 pg/mL (0-125)
[2023-09-26 22:06] LABS: Troponin I < 0.01 ng/ml (0.00-0.034)
[2023-09-26] MEDS: LACTATED RINGERS 1000ML 1,000 ML 999 ML IV (22:17)
[2023-09-26 22:30] VITALS: BP 148/68; PULSE 62; RESP 17; O2SAT 100
[2023-09-26 22:51] LABS: T4 (Thyroxine) 7.1 ug/dl (5.53-11.0)
[2023-09-26 22:59] LABS: Microscopic, Urine URINE MICROSCOPIC (MICROSCOPIC)
[2023-09-26 23:00] VITALS: BP 124/87; PULSE 57; RESP 12; O2SAT 99
[2023-09-26 23:04] LABS: Thyroid Stimulating Hormone 1.72 uIU/mL (0.465-4.68)
[2023-09-26 23:18] LABS: Appearance,Urine CLEAR (Clear); Bilirubin,Urine Negative (Negative); Blood, Urine 3+ (Negative); Color,Urine YELLOW (Yellow); Glucose,Urine (UA) Negative (Negative); Ketones,Urine Negative (Negative); Leukocyte Esterase,Urine 1+ (Negative); Nitrate,Urine Negative (Negative); Protein,Urine TRACE (Negative); Urobilinogen,Urine 0.2 EU/dl (0.2)
--- NOTE | 2023-09-26 23:20 | CT_ITS ---
PROCEDURE INFORMATION: Exam: CT Abdomen And Pelvis Without Contrast Exam date and time: 09/27/2023 12:05 AM Age: 73 years old Clinical indication: Other: Acute renal failure TECHNIQUE: Imaging protocol: Computed tomography of the abdomen and pelvis without contrast. Radiation optimization: All CT scans at this facility use at least one of these dose optimization techniques: automated exposure control; mA and/or kV adjustment per patient size (includes targeted exams where dose is matched to clinical indication); or iterative reconstruction. COMPARISON: 1. CT BONY PELVIS 09/01/2023 7:[address] ABDOMEN PELVIS WO CON 08/23/2023 5:[address] BONY PELVIS 08/10/2023 6:04 AM FINDINGS: Lungs: Scattered areas of bronchial wall thickening which are likely chronic inflammatory. A few areas of subpleural reticulation are noted, nonspecific. Liver: There is early morphologic changes of cirrhosis with volume redistribution. No concerning focal liver lesion. Gallbladder and bile ducts: The patient is status post cholecystectomy. Pancreas: There is fatty replacement of the pancreas. Spleen: There are multiple calcifications in the spleen most likely reflects small granulomas. Adrenal glands: Stable thickening of the left adrenal gland which is nonspecific. Kidneys and ureters: There are no soft tissue renal masses or hydronephrosis. Stomach and bowel: The stomach, small bowel, and colon are well-distended and show no evidence of wall thickening, masses, or obstruction. Appendix: No evidence of appendicitis. Intraperitoneal space: Unremarkable. Vasculature: There is atherosclerotic disease of the visualized aorta and its major branch vessels. Lymph nodes: No lymphadenopathy. Urinary bladder: There is moderate distention of the urinary bladder. Reproductive: The patient has undergone prior hysterectomy. Bones/joints: There is diffuse degenerative disease of the visualized osseous structures. The patient is status post median sternotomy. Soft tissues: There is a small fat containing umbilical hernia. IMPRESSION: 1. No hydronephrosis. 2. No acute inflammatory or obstructive process is identified. Incidental findings are described within the findings section.
[2023-09-26 23:30] VITALS: BP 150/71; PULSE 60; RESP 14; O2SAT 100
[2023-09-27] VITALS (12 sets, daily range): BP systolic 101–129; BP diastolic 50–84; PULSE 50–70; RESP 16–24; TEMP 36.4–36.6; O2SAT 94–100; BMI 41.8
--- NOTE | 2023-09-27 00:10 | PC.NURSE ---
patient back in room from CT at this time.
--- NOTE | 2023-09-27 00:34 | PC.NURSE ---
on phone with hospitalist
--- NOTE | 2023-09-27 00:35 | PC.NURSE ---
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
[2023-09-27] MEDS: CEFTRIAXONE SODIUM 2 GM in 0.9 % SODIUM CHLORIDE 100 ML IV ×3 (00:38→09:30)
--- NOTE | 2023-09-27 00:49 | PC.NURSE ---
Report to CHRISTIANE Wilkinson and she will notify transport to come get patient.
--- NOTE | 2023-09-27 00:54 | P.HP_ITS ---
History of Present Illness *Admission Date: 09/27/23 *Reason for visit:: REDD/UTI *History of present illness: 73 year old female presented to the [facility] ED via EMS from home for AMS, general debility, and weakness. PMHX of HTN, HLD, CAD, A-FIB, DM, COPD, and obesity. She was recently discharged from a alf due to insurance issues and has been declining since. Her last admission was on 09/01/23 for concerns of bacteremia. Her ED workup revealed creatinine of 3.80, K of 5.3, and urine positive for nitrates and WBC's. The pt's abd CT revealed no hydronephrosis or obstructive process. She was given 1L of LR, lokelma, and rocpehin. The ED physician consulted the hospitalist team for further medical management. I admitted the pt to the medical floor. She will continue to receive antibiotic coverage and treatment for her REDD. [facility] Disclaimer: The information contained in this section may have been updated after the patient was seen, as this information can be updated by other users. Medical History (Updated 09/27/23 @ 15:42 by Jennie Vieyra MD) Pneumonia Acute respiratory failure with hypoxia and hypercarbia Acute and chronic respiratory failure with hypoxia Iron deficiency anemia Hyponatremia Physical deconditioning Bacteremia Adult failure to thrive CHF exacerbation Intermittent confusion Urinary incontinence Physical deconditioning Acute hip pain Low back pain Aortic stenosis Contrast media allergy Anemia Non-STEMI (non-ST elevated myocardial infarction) Acute on chronic diastolic heart failure Asthma exacerbation in COPD Restrictive lung disease Dyspnea on exertion Typical angina Atrial fibrillation Hypoxemia ERICKSON (obstructive sleep apnea) Nocturnal hypoxemia ERICKSON (obstructive sleep apnea) Abnormal PFT COPD (chronic obstructive pulmonary disease) Dyspnea on exertion Restrictive lung disease Stopped smoking with greater than 30 pack year history Pulmonary hypertension Chronic hypoxemic respiratory failure History of 2019 novel coronavirus disease (COVID-19) Sleep disorder breathing Chronic pain Atrial fibrillation Lumbar disc disease with radiculopathy Diabetic neuropathy associated with type 2 diabetes mellitus Biventricular CHF (congestive heart failure) Severe pulmonary hypertension Pulmonary HTN Atypical angina Dyspnea Lumbar disc disease Atypical chest pain Sciatica associated with disorder of lumbar spine Lumbar radiculopathy, chronic Proliferative diabetic retinopathy Lumbar radiculopathy Pneumonia Morbid obesity with BMI of 40.0-44.9, adult Weakness Diarrhea Bilateral swelling of feet IDDM (insulin dependent diabetes mellitus) Lumbar radiculopathy, chronic Diabetic gastroparesis associated with type 2 diabetes mellitus Vertigo CHF (congestive heart failure) Hypothyroidism GERD (gastroesophageal reflux disease) Coronary artery disease Vitamin D deficiency Anxiety Depression Hyperlipidemia Hypertension Diabetes mellitus Surgical History History of lumpectomy History of eye surgery History of cataract surgery History of heart valve replacement Hx of CABG Family History Other Cancer Diabetes Heart attack Hyperlipidemia Hypertension Stroke Thyroid disorder Social History Smoking Status: Former smoker tobacco type: cigarettes packs per day: 1 second hand exposure: No alcohol intake: never substance use type: denies use current occupational status: unemployed Travel in the last 8 weeks: None household members: children housing: house current occupational exposures/hazards: No caffeine: Yes Review of Systems Review of Systems Review of systems:: unable to obtain Meds Home Medications and Allergies Home Medications Medication Instructions Recorded Confirmed Type albuterol 90 mcg/actuation aerosol 180 mcg inhalation QID 09/26/23 09/26/23 His tory inhaler apixaban 5 mg tablet (Eliquis) 5 mg PO BID 09/26/23 09/26/23 History ascorbic acid (vitamin C) 500 mg 500 mg PO DAILY 09/26/23 09/26/23 History tablet (Vitamin C) atorvastatin 40 mg tablet 40 mg PO HS 09/26/23 09/26/23 History baclofen 10 mg tablet 10 mg PO BID 09/26/23 09/26/23 History bisoprolol fumarate 5 mg tablet 2.5 mg PO DAILY 09/26/23 09/26/23 History bumetanide 1 mg tablet 1 mg PO BID 09/26/23 09/26/23 History buspirone 5 mg tablet 5 mg PO DAILY 09/26/23 09/26/23 History citalopram 40 mg tablet 40 mg PO DAILY 09/26/23 09/26/23 History clopidogrel 75 mg tablet 75 mg PO DAILY 09/26/23 09/26/23 History dulaglutide 0.75 mg/0.5 mL 0.75 mg SQ WEEKLY 09/26/23 09/26/23 History [facility] ferrous sulfate 325 mg (65 mg 325 mg PO DAILY 09/26/23 09/26/23 History iron) tablet (iron) fluticasone furoate 100 1 inh inhalation DAILY 09/26/23 09/26/23 History mcg-vilanterol 25 mcg/dose inhalation powder (Breo Ellipta) gabapentin 800 mg tablet 800 mg PO TID 09/26/23 09/26/23 History hydrocodone 5 mg-acetaminophen 325 1 tab PO QIDP PRN Pain 09/26/23 09/26/23 History mg tablet icosapent ethyl 1 gram capsule 2 g PO BID 09/26/23 09/26/23 History insulin aspar prot-insulin aspart 60 unit SQ BID 09/26/23 09/26/23 History 100 unit/mL (70-30) subcutaneous pen (Novolog Mix 70-30FlexPen U-100) insulin detemir U-100 100 unit/mL 60 unit SQ BID 09/26/23 09/26/23 History (3 mL) subcutaneous pen (Levemir FlexPen) levothyroxine 50 mcg tablet 50 mcg PO DAILY 09/26/23 09/26/23 History metoclopramide HCl 5 mg tablet 5 mg PO BID 09/26/23 09/26/23 History multivitamin 1 tab PO DAILY 09/26/23 09/26/23 History omeprazole 20 mg capsule,delayed 20 mg PO DAILY 09/26/23 09/26/23 History release polyethylene glycol 3350 17 gram 17 g PO DAILY 09/26/23 09/26/23 History oral powder packet (Miralax) zinc 50 mg tablet 50 mg PO DAILY 09/26/23 09/26/23 History acetaminophen 500 mg tablet 500 mg PO Q6H PRN Pain (Scale 09/27/23 09/27/23 History Score 1-3) cholecalciferol (vitamin D3) 25 1,000 unit PO BID 09/27/23 09/27/23 History mcg (1,000 unit) capsule irbesartan 75 mg tablet 37.5 mg PO DAILY 09/27/23 09/27/23 History New Prescriptions to Start Prescriptions: Allergies Allergy/AdvReac Type Severity Reaction Status Date / Time Iodinated Contrast Media Allergy Intermediate Hives Verified 08/23/23 14:44 [Iodinated Contrast Media - IV Dye] celecoxib [From CELEBREX] Allergy Unknown SWELLING Verified 08/23/23 14:44 ibuprofen [IBUPROFEN] Allergy Unknown S-BLISTERING Verified 08/23/23 14:44 WELTS meloxicam [MELOXICAM] Allergy Unknown S-BLISTERING Verified 08/23/23 14:44 WELTS Penicillins [PENICILLINS] Allergy Unknown I-HIVES Verified 08/23/23 14:44 rofecoxib [From VIOXX] Allergy Unknown I-HIVES Verified 08/23/23 14:44 Exam Data for Last 24 hours Vital signs and Labs for Last 24 Hours: Temp Pulse Resp BP Pulse Ox O2 Del Method O2 Flow Rate 97.8 F 54 L 16 115/52 L 100 Nasal Cannula 3 09/27/23 00:49 09/27/23 00:49 09/27/23 00:49 09/27/23 00:49 09/26/23 23:30 09/27/23 00:49 09/27/23 00:49 Laboratory Results - last 24 hr 09/26/23 21:31: SARS-CoV-2 (PCR) Not detected, Influenza A Untype (PCR) Not detected, Influenza Type B (PCR) Not detected 09/26/23 21:34: WBC 9.7, RBC 3.88 L, Hgb 9.2 L, Hct 29.7 L, MCV 76.5 L, MCH 23.7 L, MCHC 31.0 L, RDW 22.0 H, Plt Count 292, MPV 8.8, Neut % (Auto) 76.8, Lymph % (Auto) 16.0, Morgan % (Auto) 5.8, Eos % (Auto) 1.0, Baso % (Auto) 0.5, Neut # (Auto) 7.4, Lymph # (Auto) 1.5, Morgan # (Auto) 0.6, Eos # (Auto) 0.1, Baso # (Auto) 0.0, Sodium 140, Potassium 5.3 H, Chloride 108 H, Carbon Dioxide 25, Anion Gap 12.3, BUN 63 H, Creatinine 3.80 H, Estimated Creat Clear 11, Estimated GFR 12 L*, Est GFR ( Amer) 14 L*, Glucose 101 H, Lactate 0.9, Calcium 9.2, Magnesium 1.8, Total Bilirubin 0.3, AST 27, ALT 23, Alkaline Phosphatase 128 H, Troponin I < 0.01, NT-Pro-B Natriuret Pep 536 H, Total Protein 7.1, Albumin 3.6, Globulin 3.5 H, Albumin/Globulin Ratio 1.0 L, TSH 1.72, Thyroxine (T4) 7.1 09/26/23 21:40: VBG pH 7.33, VBG pCO2 46.7, VBG pO2 97.1 H, VBG HCO3 23.8, VBG Total CO2 25.3, VBG O2 Saturation 97.2 H, VBG Base Excess -2.2, VBG Lactic Acid 1.7 09/26/23 22:51: Urine Color Yellow, Urine Appearance Clear, Urine pH 6.0, Ur Specific [place] 1.010, Urine Protein Trace, Urine Glucose (UA) Negative, Urine Ketones Negative, Urine Blood 3+, Urine Nitrate Negative, Urine Bilirubin Negative, Urine Urobilinogen 0.2, Ur Leukocyte Esterase 1+ A, Urine RBC 3-5, U rine WBC 5-10, Ur Squamous Epith Cells 3-5, Urine Bacteria None I & O for Last 24 hours: Intake & Output 09/24/23 09/25/23 09/26/23 09/27/23 23:59 23:59 23:59 23:59 Intake Total 1100 / 1100 Balance 1100 / 1100 Weight 110.677 kg Constitutional Constitutional: morbidly obese, obese and chronically ill appearing *Routine HEENT Exam Head: Present normocephalic Eye: Present PERRL ENT: Present mucous membranes dry *Routine Neck Exam Neck: Present full ROM *Routine Respiratory Exam Respiratory: Present wheezes and symmetric chest movement *Routine Cardiovascular Exam Cardiovascular: Present bradycardia *Routine Abdominal Exam Abdominal: Present soft and normoactive bowel sounds; Absent tenderness *Routine Rectal Exam Rectal:: deferred *Routine Genitalia Exam Genitalia:: deferred *Routine Extremities Exam Extremities: Present edema *Routine Skin Exam Skin: Present intact *Routine Neurological Exam Neurological: Present altered mental status Assessment and Plan *Assessment and plan (1) AMS (altered mental status): Status: Acute Category: Medical Code(s): R41.82 - Altered mental status, unspecified (2) Acute kidney injury: Status: Resolved Category: Medical Code(s): N17.9 - Acute kidney failure, unspecified (3) Hyperkalemia: Status: Acute Category: Medical Code(s): E87.5 - Hyperkalemia (4) Acute UTI: Status: Acute Category: Medical Code(s): N39.0 - Urinary tract infection, site not specified (5) Uremia: Status: Acute Category: Medical Code(s): N19 - Unspecified kidney failure (6) Atrial fibrillation: Status: Acute Qualifiers: Atrial fibrillation type: paroxysmal Qualified Code(s): I48.0 - Paroxysmal atrial fibrillation Category: Medical Code(s): I48.91 - Unspecified atrial fibrillation (7) CHF (congestive heart failure): Status: Acute Qualifiers: Heart failure chronicity: acute on chronic Heart failure type: unspecified Qualified Code(s): I50.9 - Heart failure, unspecified Category: Medical Code(s): I50.9 - Heart failure, unspecified (8) Diabetes mellitus: Problem Comment: type 2 non insulin dep Status: Acute Qualifiers: Diabetes mellitus complication status: with hyperglycemia Diabetes mellitus detention insulin use: with detention use Diabetes mellitus type: type 2 Qualified Code(s): E11.65 - Type 2 diabetes mellitus with hyperglycemia Category: Medical Code(s): E11.9 - Type 2 diabetes mellitus without complications (9) Hypertension: Status: Acute Qualifiers: Hypertension type: essential hypertension Qualified Code(s): I10 - Essential (primary) hypertension Category: Medical Code(s): I10 - Essential (primary) hypertension (10) Hyperlipidemia: Status: Acute Qualifiers: Hyperlipidemia type: unspecified Qualified Code(s): E78.5 - Hyperlipidemia, unspecified Category: Medical Code(s): E78.5 - Hyperlipidemia, unspecified (11) Hypothyroidism: Status: Acute Qualifiers: Hypothyroidism type: acquired Qualified Code(s): E03.9 - Hypothyroidism, unspecified Category: Medical Code(s): E03.9 - Hypothyroidism, unspecified (12) Obesity: Status: Resolved Qualifiers: Body mass index: BMI 45.0-49.9 Obesity classification: adult class 3 (BMI >= 40) Obesity type: due to excess calories Serious obesity comorbidity presence: with serious comorbidity Qualified Code(s): E66.01 - Morbid (severe) obesity due to excess calories; Z68.42 - Body mass index [BMI] 45.0-49.9, adult Category: Medical Code(s): E66.9 - Obesity, unspecified Plan 73 year old female presented to the [facility] ED via EMS from home for AMS, general debility, and weakness. PMHX of HTN, HLD, CAD, A-FIB, DM, COPD, and obesity. She was recently discharged from a alf due to insurance issues and has been declining since. Her last admission was on 09/01/23 for concerns of bacteremia. Her ED workup revealed creatinine of 3.80, K of 5.3, and urine positive for nitrates and WBC's. The pt's abd CT revealed no hydronephrosis or obstructive process. She was given 1L of LR, lokelma, and rocpehin. The ED physician consulted the hospitalist team for further medical management. I admitted the pt to the medical floor. She will continue to receive antibiotic coverage and treatment for her REDD. AMS REDD HYPERKALEMIA -Upon admission pt is unable to answer my questions -hold all sedating medications -Head CT without acute hemorrhage -CT of abdomen without obstruction or hydronephrosis -Creatinine 3.8 -> Baseline below 1.1 -1 L of LR given in ED -Hold nephrotoxic medications -Given Lokelma in ED for K of 5.3 -Ordered repeat K for the morning UTI -UA positive for nitrates and WBC -blood and urine culture pending -Continue Rocephin IV 2g @ 12 hr DM -ssi insulin -A1c 5.7 AFIB CHF HTN HLD HYPOTHYROIDISM -continue eliquis 5mg, lipitor 40mg, buspar 5mg, plavix 75mg, citalopram 40mg, levothyroxine 50 mcg, protonix 40mg, and mirlax. -TSH 1.72 and T4 7.1 OBESITY: complicates all aspects of care FULL CODE DIABETIC DIET DVT: ELIQUIS Rounded on patient after nurse practitioner. Personally examined and interviewed patient. Agree with exam findings and care plan as documented. Patient stable this morning. Wearing BiPAP. Family at bedside today, had goals of care discussion. Continuing antibiotics for UTI. Monitoring labs. Kidney function still abnormal through the day, 3.5 on morning labs. Oriented to self only. Asks who everybody is multiple times today.
[2023-09-27 01:00] LABS: Troponin I < 0.01 ng/ml (0.00-0.034)
--- NOTE | 2023-09-27 01:04 | PC.NURSE ---
PT ARRIVED TO FLOOR AT THIS TIME
--- NOTE | 2023-09-27 02:17 | PC.NURSE ---
Pt arrived to the unit with little to no response. RT contacted for Bi-pap pt on 3L sating at 86%, O2 improving at this time. Pt able to open eyes when prompted and responds but confusion noted. Pt is Q2 turn extremities are elevated due to 2+ edema in all extremities.
[2023-09-27 03:47] LABS: VBG Base Excess -2.4 mmol/L (-2.4-2.3); VBG HCO3 24.2 mmol/L (23-30); VBG Oxygen Saturation 93.6 % (50-70); VBG PH 7.29 mmol/L (7.31-7.41); VBG PO2 73.7 mmol/L (28-40); VBG Total CO2 25.8 mmol/L (23-27)
[2023-09-27 03:49] LABS: VBG PCO2 51.8 mmol/L (35-51)
[2023-09-27 06:59] LABS: Troponin I < 0.01 ng/ml (0.00-0.034)
[2023-09-27 06:59] LABS: Hemoglobin A1C 5.7 % (4.0-6.0)
[2023-09-27 07:34] LABS: Basophils % 0.4 % (0.1-2.0); Eosinophils # 0.1 K/mm3 (0.0-0.4); Eosinophils % 1.5 % (0.1-12.0); Hematocrit 27.6 % (37.0-47.0); Hemoglobin 8.7 g/dL (12.2-16.2); Lymphocytes # 1.8 K/mm3 (0.7-4.5); Lymphocytes % 25.4 % (10-50); Mean Corpuscular HGB Conc 31.5 g/dL (31.8-35.4); Mean Corpuscular Hemoglobin 24.4 pg (27.0-31.2); Mean Corpuscular Volume 77.4 fl (81-99); Mean Platelet Volume 7.6 fl (7.4-10.4); Monocytes # 0.4 K/mm3 (0.1-1.0); Monocytes % 5.9 % (1.7-9.3); Neutrophils # 4.7 K/mm3 (1.8-7.8); Neutrophils % 66.9 % (37.0-80.0); Platelet Count 241 K/mm3 (142-424); Red Blood Count 3.57 M/mm3 (4.20-5.40); Red Cell Distribution Width 22.1 % (11.5-17.5)
[2023-09-27 07:46] LABS: Anion Gap 12.7 mEq/L (5-15); Blood Urea Nitrogen 59 mg/dl (7-17); Carbon Dioxide 23 mmol/L (22.0-30.0); Chloride 111 mmol/L (98-107); Creatinine Clearance Estimated 12 mL/min (50-200); Estimated Glomerular Filt Rate 13 ml/min (>60); GFR (African American) 15 ML/MIN (>60); Glucose 92 mg/dl (74-100); Potassium 4.7 mmoL/L (3.5-5.1); Sodium 142 mmol/L (136-145)
[2023-09-27] MEDS: LACTATED RINGERS 1000ML 1,000 ML 125 ML IV ×2 (08:59→17:30)
[2023-09-27] MEDS: BISOPROLOL 5MG TABLET 2.5 MG PO (09:02)
[2023-09-27] MEDS: BUSPIRONE HCL 5 MG TABLET PO (09:02)
[2023-09-27] MEDS: CITALOPRAM 40MG TABLET 40 MG PO (09:02)
[2023-09-27] MEDS: LEVOTHYROXINE 50MCG (0.05MG) TAB 50 MCG PO (09:03)
[2023-09-27] MEDS: CLOPIDOGREL 75MG TAB 75 MG PO (09:03)
[2023-09-27] MEDS: APIXABAN 5MG TABLET 5 MG PO (09:03)
[2023-09-27] MEDS: FERROUS SULFATE 325MG TABLET 325 MG PO (09:03)
--- NOTE | 2023-09-27 09:11 | [facility].PHAINT1 ---
Pharmacy Intervention Comments: Verified home medications using external prescription fill history and discharge summary from previous visit.
[2023-09-27 10:38] LABS: ABG Base Excess -1.5 mmol/L (-2.4-2.3); ABG HCO3 24.6 mmhg (22.0-26.0); ABG Oxygen Saturation 98 % (90-100); ABG PCO2 49.1 mmhg (35.0-45.0); ABG PH 7.32 mmol/L (7.35-7.45); ABG PO2 124.5 mmhg (80-100); ABG TCO2 26.1 mmhg (23-27)
[2023-09-27 10:40] LABS: Allen's Test ACCEPTABLE; Oxygen 40 %; PEEP BIPAP 20/10; Source Right Radial
[2023-09-27] MEDS: IPRATROPIUM/ALBUTEROL 3 ML NEB IH ×3 (11:08→23:47)
[2023-09-27 11:17] LABS: POC Glucose,Bedside 103 (70-110)
--- NOTE | 2023-09-27 14:04 | P.CONS_ITS ---
History of Present Illness History of present illness: Ms. Armas is a 73-year-old female greater than [id number] smoking history. COVID-19 pneumonia, exacerbation of COPD pulmonary hypertension complex restrictive lung disease secondary to chest wall limitation presented to the ER with worsening respiratory's altered mentation found to be in hypercarbic respiratory failure needing noninvasive ventilatory support and pulmonary was called for further evaluation and management. [facility] Disclaimer: The information contained in this section may have been updated after the patient was seen, as this information can be updated by other users. Medical History (Updated 09/27/23 @ 15:42 by Jennie Vieyra MD) Pneumonia Acute respiratory failure with hypoxia and hypercarbia Acute and chronic respiratory failure with hypoxia Iron deficiency anemia Hyponatremia Physical deconditioning Bacteremia Adult failure to thrive CHF exacerbation Intermittent confusion Urinary incontinence Physical deconditioning Acute hip pain Low back pain Aortic stenosis Contrast media allergy Anemia Non-STEMI (non-ST elevated myocardial infarction) Acute on chronic diastolic heart failure Asthma exacerbation in COPD Restrictive lung disease Dyspnea on exertion Typical angina Atrial fibrillation Hypoxemia ERICKSON (obstructive sleep apnea) Nocturnal hypoxemia ERICKSON (obstructive sleep apnea) Abnormal PFT COPD (chronic obstructive pulmonary disease) Dyspnea on exertion Restrictive lung disease Stopped smoking with greater than 30 pack year history Pulmonary hypertension Chronic hypoxemic respiratory failure History of 2019 novel coronavirus disease (COVID-19) Sleep disorder breathing Chronic pain Atrial fibrillation Lumbar disc disease with radiculopathy Diabetic neuropathy associated with type 2 diabetes mellitus Biventricular CHF (congestive heart failure) Severe pulmonary hypertension Pulmonary HTN Atypical angina Dyspnea Lumbar disc disease Atypical chest pain Sciatica associated with disorder of lumbar spine Lumbar radiculopathy, chronic Proliferative diabetic retinopathy Lumbar radiculopathy Pneumonia Morbid obesity with BMI of 40.0-44.9, adult Weakness Diarrhea Bilateral swelling of feet IDDM (insulin dependent diabetes mellitus) Lumbar radiculopathy, chronic Diabetic gastroparesis associated with type 2 diabetes mellitus Vertigo CHF (congestive heart failure) Hypothyroidism GERD (gastroesophageal reflux disease) Coronary artery disease Vitamin D deficiency Anxiety Depression Hyperlipidemia Hypertension Diabetes mellitus Surgical History History of lumpectomy History of eye surgery History of cataract surgery History of heart valve replacement Hx of CABG Family History Other Cancer Diabetes Heart attack Hyperlipidemia Hypertension Stroke Thyroid disorder Social History Smoking Status: Former smoker tobacco type: cigarettes packs per day: 1 second hand exposure: No alcohol intake: never substance use type: denies use current occupational status: unemployed Travel in the last 8 weeks: None household members: children housing: house current occupational exposures/hazards: No caffeine: Yes Review of Systems Review of Systems Review of systems:: unable to obtain Review of systems (narrative): Patient altered on BiPAP Pulmonology Exam Inpatient Vital signs and Labs for Last 24 Hours: Temp Pulse Resp BP Pulse Ox O2 Del Method O2 Flow Rate 97.6 F 51 L 21 129/84 100 BiPAP 3 09/27/23 12:00 09/27/23 12:00 09/27/23 12:00 09/27/23 12:00 09/27/23 12:00 09/27/23 12:59 09/27/23 07:00 FiO2 40 09/27/23 08:00 Laboratory Results - last 24 hr 09/26/23 21:31: SARS-CoV-2 (PCR) Not detected, Influenza A Untype (PCR) Not detected, Influenza Type B (PCR) Not detected 09/26/23 21:34: WBC 9.7, RBC 3.88 L, Hgb 9.2 L, Hct 29.7 L, MCV 76.5 L, MCH 23.7 L, MCHC 31.0 L, RDW 22.0 H, Plt Count 292, MPV 8.8, Neut % (Auto) 76.8, Lymph % (Auto) 16.0, Hudson % (Auto) 5.8, Eos % (Auto) 1.0, Baso % (Auto) 0.5, Neut # (Auto) 7.4, Lymph # (Auto) 1.5, Hudson # (Auto) 0.6, Eos # (Auto) 0.1, Baso # (Auto) 0.0, Sodium 140, Potassium 5.3 H, Chloride 108 H, Carbon Dioxide 25, Anion Gap 12.3, BUN 63 H, Creatinine 3.80 H, Estimated Creat Clear 11, Estimated GFR 12 L*, Est GFR ( Amer) 14 L*, Glucose 101 H, Lactate 0.9, Calcium 9.2, Magnesium 1.8, Total Bilirubin 0.3, AST 27, ALT 23, Alkaline Phosphatase 128 H, Troponin I < 0.01, NT-Pro-B Natriuret Pep 536 H, Total Protein 7.1, Albumin 3.6, Globulin 3.5 H, Albumin/Globulin Ratio 1.0 L, TSH 1.72, Thyroxine (T4) 7.1 09/26/23 21:40: VBG pH 7.33, VBG pCO2 46.7, VBG pO2 97.1 H, VBG HCO3 23.8, VBG Total CO2 25.3, VBG O2 Saturation 97.2 H, VBG Base Excess -2.2, VBG Lactic Acid 1.7 09/26/23 22:51: Urine Color Yellow, Urine Appearance Clear, Urine pH 6.0, Ur Specific Canadian 1.010, Urine Protein Trace, Urine Glucose (UA) Negative, Urine Ketones Negative, Urine Blood 3+, Urine Nitrate Negative, Urine Bilirubin Negative, Urine Urobilinogen 0.2, Ur Leukocyte Esterase 1+ A, Urine RBC 3-5, Urine WBC 5-10, Ur Squamous Epith Cells 3-5, Urine Bacteria None 09/27/23 00:00: Hemoglobin A1c 5.7 09/27/23 00:32: Troponin I < 0.01 09/27/23 03:45: Troponin I < 0.01 09/27/23 06:00: VBG pH 7.29 L, VBG pCO2 51.8 H, VBG pO2 73.7 H, VBG HCO3 24.2, VBG Total CO2 25.8, VBG O2 Saturation 93.6 H, VBG Base Excess -2.4 09/27/23 06:31: WBC 7.0 D, RBC 3.57 L, Hgb 8.7 L, Hct 27.6 L, MCV 77.4 L, MCH 24.4 L, MCHC 31.5 L, RDW 22.1 H, Plt Count 241, MPV 7.6, Neut % (Auto) 66.9, Lymph % (Auto) 25.4, Hudson % (Auto) 5.9, Eos % (Auto) 1.5, Baso % (Auto) 0.4, Neut # (Auto) 4.7, Lymph # (Auto) 1.8, Hudson # (Auto) 0.4, Eos # (Auto) 0.1, Baso # (Auto) 0.0, Sodium 142, Potassium 4.7, Chloride 111 H, Carbon Dioxide 23, Anion Gap 12.7, BUN 59 H, Creatinine 3.50 H, Estimated Creat Clear 12, Estimated GFR 13 L*, Est GFR ( Amer) 15 L*, Glucose 92, Calcium 9.0 09/27/23 10:36: Specimen Source Right radial, O2 % 40, ABG pH 7.32 L, ABG pCO2 49.1 H, ABG pO2 124.5 H, ABG HCO3 24.6, ABG Total CO2 26.1, ABG O2 Saturation 98, ABG Base Excess -1.5, Tru Test Acceptable, PEEP Bipap 20/10 09/27/23 11:09: POC Glucose 103 I & O for Labs for Last 24 Hours: Intake & Output 09/24/23 09/25/23 09/26/23 09/27/23 23:59 23:59 23:59 23:59 Intake Total 1340 / 1340 Output Total 1200 / 1200 Balance 140 / 140 Weight 244 lb 245 lb 2.464 oz Constitutional: Present severe distress Head: Present normocephalic and atraumatic ENT: Present normal exam, normal oropharynx and mucous membranes moist Neck: Present normal inspection and full ROM Respiratory: Present respiratory distress, wheezes and diminished air movement; Absent able to speak in complete sentences Cardiac: Present S1/S2, Tachycardia and radial pulses present GI: Present soft and distention; Absent tenderness or guarding Rectal (female): Present deferred (female): Present deferred Skin: Present intact; Absent cyanosis or jaundice Neuro: Absent alert, awake or oriented x 3 Extremities: Present normal inspection; Absent clubbing or cyanosis Psychiatric: Present normal affect and cooperative Meds Home Medications and Allergies Home Medications Medication Instructions Recorded Confirmed Type albuterol 90 mcg/actuation aerosol 180 mcg inhalation QID 09/26/23 09/26/23 History inhaler apixaban 5 mg tablet (Eliquis) 5 mg PO BID 09/26/23 09/26/23 History ascorbic acid (vitamin C) 500 mg 500 mg PO DAILY 09/26/23 09/26/23 History tablet (Vitamin C) atorvastatin 40 mg tablet 40 mg PO HS 09/26/23 09/26/23 History baclofen 10 mg tablet 10 mg PO BID 09/26/23 09/26/23 History bisoprolol fumarate 5 mg tablet 2.5 mg PO DAILY 09/26/23 09/26/23 History bumetanide 1 mg tablet 1 mg PO BID 09/26/23 09/26/23 History buspirone 5 mg tablet 5 mg PO DAILY 09/26/23 09/26/23 History citalopram 40 mg tablet 40 mg PO DAILY 09/26/23 09/26/23 History clopidogrel 75 mg tablet 75 mg PO DAILY 09/26/23 09/26/23 History dulaglutide 0.75 mg/0.5 mL 0.75 mg SQ WEEKLY 09/26/23 09/26/23 History subcutaneous pen injector (Trulicity) ferrous sulfate 325 mg (65 mg 325 mg PO DAILY 09/26/23 09/26/23 History iron) tablet (iron) fluticasone furoate 100 1 inh inhalation DAILY 09/26/23 09/26/23 History mcg-vilanterol 25 mcg/dose inhalation powder (Breo Ellipta) gabapentin 800 mg tablet 800 mg PO TID 09/26/23 09/26/23 History hydrocodone 5 mg-acetaminophen 325 1 tab PO QIDP PRN Pain 09/26/23 09/26/23 History mg tablet icosapent ethyl 1 gram capsule 2 g PO BID 09/26/23 09/26/23 History insulin aspar prot-insulin aspart 60 unit SQ BID 09/26/23 09/26/23 History 100 unit/mL (70-30) subcutaneous pen (Novolog Mix 70-30FlexPen U-100) insulin detemir U-100 100 unit/mL 60 unit SQ BID 09/26/23 09/26/23 History (3 mL) subcutaneous pen (Levemir FlexPen) levothyroxine 50 mcg tablet 50 mcg PO DAILY 09/26/23 09/26/23 History metoclopramide HCl 5 mg tablet 5 mg PO BID 09/26/23 09/26/23 History multivitamin 1 tab PO DAILY 09/26/23 09/26/23 History omeprazole 20 mg capsule,delayed 20 mg PO DAILY 09/26/23 09/26/23 History release polyethylene glycol 3350 17 gram 17 g PO DAILY 09/26/23 09/26/23 History oral powder packet (Miralax) zinc 50 mg tablet 50 mg PO DAILY 09/26/23 09/26/23 History acetaminophen 500 mg tablet 500 mg PO Q6H PRN Pain (Scale 09/27/23 09/27/23 History Score 1-3) cholecalciferol (vitamin D3) 25 1,000 unit PO BID 09/27/23 09/27/23 History mcg (1,000 unit) capsule irbesartan 75 mg tablet 37.5 mg PO DAILY 09/27/23 09/27/23 History New Prescriptions to Start Prescriptions: Allergies Allergy/AdvReac Type Severity Reaction Status Date / Time Iodinated Contrast Media Allergy Intermediate Hives Verified 08/23/23 14:44 [Iodinated Contrast Media - IV Dye] celecoxib [From CELEBREX] Allergy Unknown SWELLING Verified 08/23/23 14:44 ibuprofen [IBUPROFEN] Allergy Unknown S-BLISTERING Verified 08/23/23 14:44 WELTS meloxicam [MELOXICAM] Allergy Unknown S-BLISTERING Verified 08/23/23 14:44 WELTS Penicillins [PENICILLINS] Allergy Unknown I-HIVES Verified 08/23/23 14:44 rofecoxib [From VIOXX] Allergy Unknown I-HIVES Verified 08/23/23 14:44 Results Laboratory Findings 09/27/23 06:31 09/27/23 06:31 ABG ABG pH 7.32 mmol/L (7.35-7.45) L 09/27/23 10:36 ABG pCO2 49.1 mmhg (35.0-45.0) H 09/27/23 10:36 ABG pO2 124.5 mmhg (80-100) H 09/27/23 10:36 ABG O2 Saturation 98 % (90-100) 09/27/23 10:36 Abnormal lab findings: Abnormal Labs 09/26/23 09/26/23 09/26/23 21:34 21:40 22:51 RBC 3.88 L Hgb 9.2 L Hct 29.7 L MCV 76.5 L MCH 23.7 L MCHC 31.0 L RDW 22.0 H ABG pH ABG pCO2 ABG pO2 VBG pH VBG pCO2 VBG pO2 97.1 H VBG O2 Saturation 97.2 H Potassium 5.3 H Chloride 108 H BUN 63 H Creatinine 3.80 H Estimated GFR 12 L* Est GFR ( Amer) 14 L* Glucose 101 H Alkaline Phosphatase 128 H NT-Pro-B Natriuret Pep 536 H Globulin 3.5 H Albumin/Globulin Ratio 1.0 L Ur Leukocyte Esterase 1+ A 09/27/23 09/27/23 09/27/23 06:00 06:31 10:36 RBC 3.57 L Hgb 8.7 L Hct 27.6 L MCV 77.4 L MCH 24.4 L MCHC 31.5 L RDW 22.1 H ABG pH 7.32 L ABG pCO2 49.1 H ABG pO2 124.5 H VBG pH 7.29 L VBG pCO2 51.8 H VBG pO2 73.7 H VBG O2 Saturation 93.6 H Potassium Chloride 111 H BUN 59 H Creatinine 3.50 H Estimated GFR 13 L* Est GFR ( Amer) 15 L* Glucose Alkaline Phosphatase NT-Pro-B Natriuret Pep Globulin Albumin/Globulin Ratio Ur Leukocyte Esterase Assessment and Plan *Assessment and plan (1) Acute and chronic respiratory failure with hypoxia: Status: Acute Category: Medical Code(s): J96.21 - Acute and chronic respiratory failure with hypoxia (2) Acute respiratory failure with hypoxia and hypercarbia: Status: Acute Category: Medical Code(s): J96.01 - Acute respiratory failure with hypoxia; J96.02 - Acute respiratory failure with hypercapnia (3) Pneumonia: Status: Acute Qualifiers: Pneumonia type: due to unspecified organism Laterality: right Lung location: lower lobe of lung Qualified Code(s): J18.9 - Pneumonia, unspecified organism Category: Medical Code(s): J18.9 - Pneumonia, unspecified organism Plan Ms. Armas is a 73-year-old female greater than [id number] smoking history. COVID-19 pneumonia, exacerbation of COPD pulmonary hypertension complex restrictive lung disease secondary to chest wall limitation presented to the ER with worsening respiratory's altered mentation found to be in hypercarbic respiratory failure needing noninvasive ventilatory support and pulmonary was called for further evaluation and management. Chest x-ray Concern for left lower lobe retrocardiac opacity., otherwise stable with no dense consolidative airspace disease. Afebrile. Hemodynamically stable. No evidence of significant neutrophilic leukocytosis. Patient admission was found to be significantly dehydrated, [facility] primary team following. Receiving IV fluids. VBG upon admission showed mild hypercarbic respiratory failure, subsequent ABGs did not show any evidence of significant hypercarbia, pH is 7.32 with a pCO2 49.1. Concomitant metabolic acidosis also noted. Auscultation no significant wheezing noted. Given no significant worsening oxygen requirements, hold off on initiating treatment for hospital-acquired pneumonia at this point of time. Patient recently discharged from the hospital on 09/06/2023 with vancomycin and gentamicin for Enterococcus bacteremia. Plan: Recommend ceftriaxone and azithromycin pending culture results. DuoNebs every 6 hours on a scheduled basis Wean to nasal cannula oxygen supplementation to maintain O2 saturation below 90% above. Will place back on BiPAP overnight. # Thank you for involving pulmonary in this patient care. Will continue to follow.
--- NOTE | 2023-09-27 16:08 | PC.NURSE ---
Pt. refused lab work. Discussed with pt. need to re-check labs but she continues to refuse.
[2023-09-27 16:27] LABS: POC Glucose,Bedside 103 (70-110)
[2023-09-27 17:56] LABS: Chloride 111 mmol/L (98-107); Potassium 5.2 mmoL/L (3.5-5.1); Sodium 142 mmol/L (136-145)
[2023-09-27 17:59] LABS: Anion Gap 8.2 mEq/L (5-15); Blood Urea Nitrogen 54 mg/dl (7-17); Carbon Dioxide 28 mmol/L (22.0-30.0); Creatinine Clearance Estimated 13 mL/min (50-200); Estimated Glomerular Filt Rate 14 ml/min (>60); GFR (African American) 17 ML/MIN (>60); Glucose 98 mg/dl (74-100)
--- NOTE | 2023-09-27 18:28 | P.EN_ITS ---
Advance care planning note: Active diagnosis: Acute on chronic hypoxemic respiratory failure, OHS, ERICKSON, diabetes CHF 80 hip, progressive debility, recurring UTIs, acute on chronic CKD. The patient's active diagnoses are of sufficient risk that focused discussion on advanced care planning is indicated in order to allow the patient to thoughtfully consider personal goals of care; and, if situations arise that prevent the ability to personally give input, to ensure appropriate representation of their personal desires through documentation or informed surrogate decision makers. Discussion: Persons present and participating in discussion: Son, [id number], patient Discussion: Extensive discussion about patient's recurrent admissions. Discussed patient's medical needs and concern for the ability for her to get adequate care in the setting outside of a detention. Son became frustrated initially during discussion, reassured him that I felt they were doing the best they can but her needs are complex and hard for anybody to meet. Family adamant they will take patient home when she is ready for discharge. Patient wants to stay full code. Concern for family's understanding of patient's progressive medical conditions and debility. Multiple competing organ dysfunctions with respiratory failure, heart failure, worsening kidney function. Time spent: Total time spent [id number] in education and discussion directly related to advance care plannin min
[2023-09-27 20:26] LABS: POC Glucose,Bedside 94 (70-110)
--- NOTE | 2023-09-27 21:15 | PC.NURSE ---
Pt refuses to take medications despite education and several attempts, notified charge nurse for attempt, notified INTEL RECRUITER of refusal at this time, Strategic Client Executive will speak to pt
--- NOTE | 2023-09-27 21:16 | PC.NURSE ---
pt. refused to take medication. This nurse and Ivon Beck RN educated pt. on the need for her medication and she continued to refuse and stated I'm fine, I'm fine.
--- NOTE | 2023-09-27 22:26 | PC.NURSE ---
PALLET SORTER attempted to educate pt about taking meds, pt refused.
--- NOTE | 2023-09-27 23:58 | PC.NURSE ---
RESPIRATORY CARE Patient is refusing bipap. attmpted to put in on and she was pulling it off. she also refused the breathing treatment at this time as well.
[2023-09-28] VITALS (11 sets, daily range): BP systolic 107–160; BP diastolic 52–87; PULSE 50–90; RESP 18–23; TEMP 36.5–36.8; O2SAT 91–98; BMI 42.9
[2023-09-28] MEDS: LACTATED RINGERS 1000ML 1,000 ML 125 ML IV ×2 (00:32→08:46)
--- NOTE | 2023-09-28 00:39 | PC.NURSE ---
Pt refusing O2 and keeps taking NC off, charge nurse and LEAD MECHANICAL ENGINEER notified and in pt room at this time educating pt of importance of O2. Mittens applied to pt hands at this time per LEAD MECHANICAL ENGINEER request. Able to apply Bi-pap at this time RT aware.
[2023-09-28 05:44] LABS: POC Glucose,Bedside 103 (70-110)
--- NOTE | 2023-09-28 06:09 | EXP.ACUTE.PN ---
Subjective *Date: 09/28/23 *Time: 16:40 Interval history: Pt placed on BiPAP overnight for sleep apnea. She attempted to remove BiPAP several times. When placed back on oxygen, she attempts to remove the tubing from her nose. She is oriented to self and believes she is at home. Will continue monitoring pulse ox and HR. Blood cultures are still pending. Pt refusing to take medications last night. Nursing staff reports she is refusing to eat. Will continue to monitor blood sugar, complete blood counts, electrolytes, and creatinine. Back to supplemental oxygen this morning on 3 L. Oriented to self and more alert on my exam. Medical Exam Vital signs and Labs for Last 24 Hours: Vital Signs Temp Pulse Pulse Resp BP Pulse Ox O2 Del Method 09/28/23 04:00 98 F 60 20 140/87 91 L BiPAP 09/28/23 04:00 50 L 09/28/23 02:41 BiPAP 09/28/23 01:45 09/28/23 00:51 BiPAP 09/28/23 00:00 70 09/28/23 00:00 95 Nasal Cannula, BiPAP 09/27/23 22:39 Nasal Cannula 09/27/23 21:00 Nasal Cannula 09/27/23 20:00 60 09/27/23 20:00 97.9 F 62 17 126/73 97 Nasal Cannula 09/27/23 19:00 Nasal Cannula 09/27/23 18:54 68 09/27/23 18:54 68 09/27/23 18:54 97 Nasal Cannula 09/27/23 17:00 Nasal Cannula 09/27/23 16:00 60 09/27/23 15:58 97.5 F L 55 L 21 115/71 94 L Nasal Cannula 09/27/23 15:00 Nasal Cannula 09/27/23 13:20 09/27/23 12:59 BiPAP 09/27/23 12:00 70 09/27/23 12:00 97.6 F 51 L 21 129/84 100 BiPAP 09/27/23 11:08 69 09/27/23 11:08 66 09/27/23 11:00 BiPAP 09/27/23 09:00 BiPAP 09/27/23 08:00 60 09/27/23 08:00 09/27/23 08:00 97.5 F L 67 22 125/83 100 BiPAP 09/27/23 08:00 BiPAP 09/27/23 07:00 Nasal Cannula O2 Flow Rate FiO2 09/28/23 04:00 09/28/23 04:00 09/28/23 02:41 09/28/23 01:45 30 09/28/23 00:51 09/28/23 00:00 09/28/23 00:00 09/27/23 22:39 3 09/27/23 21:00 3 09/27/23 20:00 09/27/23 20:00 09/27/23 19:00 3 09/27/23 18:54 09/27/23 18:54 09/27/23 18:54 3 09/27/23 17:00 3 09/27/23 16:00 09/27/23 15:58 3 09/27/23 15:00 3 09/27/23 13:20 40 09/27/23 12:59 09/27/23 12:00 09/27/23 12:00 09/27/23 11:08 09/27/23 11:08 09/27/23 11:00 09/27/23 09:00 09/27/23 08:00 09/27/23 08:00 40 09/27/23 08:00 09/27/23 08:00 09/27/23 07:00 3 Intake and Output 09/27/23 09/27/23 09/28/23 15:59 23:59 07:59 Intake Total 240 / 3318 1977 Output Total 1850 / 1850 1000 / 1000 Balance -1610 / 1468 978 / 978 Intake: Intake, Oral Amount 240 / 300 60 / 60 Intake, Total IV Amount 1917 Lactated Ringers 1000ML 1,000 1917 ml @ 125 mls/hr IV .Q8H [facility] Rx# :[id number] Output: Output, Urine Amount 1850 / 1850 1000 / 1000 Other: Number of Unmeasured Voids 0 1 Weight 111.2 kg 113.942 kg Patient Weight 09/28/23 23:59 Weight 113.942 kg Laboratory Results - last 24 hr 09/27/23 00:00: Hemoglobin A1c 5.7 09/27/23 03:45: Troponin I < 0.01 09/27/23 06:31: WBC 7.0 D, RBC 3.57 L, Hgb 8.7 L, Hct 27.6 L, MCV 77.4 L, MCH 24.4 L, MCHC 31.5 L, RDW 22.1 H, Plt Count 241, MPV 7.6, Neut % (Auto) 66.9, Lymph % (Auto) 25.4, [place] % (Auto) 5.9, Eos % (Auto) 1.5, Baso % (Auto) 0.4, Neut # (Auto) 4.7, Lymph # (Auto) 1.8, [place] # (Auto) 0.4, Eos # (Auto) 0.1, Baso # (Auto) 0.0, Sodium 142, Potassium 4.7, Chloride 111 H, Carbon Dioxide 23, Anion Gap 12.7, BUN 59 H, Creatinine 3.50 H, Estimated Creat Clear 12, Estimated GFR 13 L*, Est GFR ( Amer) 15 L*, Glucose 92, Calcium 9.0 09/27/23 10:36: Specimen Source Right radial, O2 % 40, ABG pH 7.32 L, ABG pCO2 49.1 H, ABG pO2 124.5 H, ABG HCO3 24.6, ABG Total CO2 26.1, ABG O2 Saturation 98, ABG Base Excess -1.5, Tru Test Acceptable, PEEP Bipap 12/0509/27/23 11:09: POC Glucose 103 09/27/23 16:19: POC Glucose 103 09/27/23 17:35: Sodium 142, Potassium 5.2 H, Chloride 111 H, Carbon Dioxide 28, Anion Gap 8.2, BUN 54 H, Creatinine 3.20 H, Estimated Creat Clear 13, Estimated GFR 14 L*, Est GFR ( Amer) 17 L*, Glucose 98, Calcium 9.0 09/27/23 20:07: POC Glucose 94 09/28/23 05:24: POC Glucose 103 I & O for Labs for Last 24 Hours: Intake & Output 09/25/23 09/26/23 09/27/23 09/28/23 23:59 23:59 23:59 23:59 Intake Total 1340 / 3318 1977 / 1977 Output Total 1850 / 1850 1000 / 1000 Balance -510 / 1468 978 / 978 Weight 110.677 kg 111.2 kg 113.942 kg Constitutional: Present no acute distress, morbidly obese, chronically ill appearing and cooperative Head: Present atraumatic ENT: Present normal exam Comment:: Cushingoid face Neck: Present normal inspection and full ROM Respiratory: Present rhonchi, distant breath sounds, diminished air movement and symmetric chest movement; Absent wheezes or crackles Cardiac: Present Reg Rate and Rhythm GI: Present soft; Absent tenderness Rectal (female): Present deferred (female): Present deferred Extremities: Present full ROM and edema Skin: Present intact Neuro: Present alert, awake and moves all extremities; Absent oriented x 3 Assessment and Plan *Assessment and plan (1) AMS (altered mental status): Status: Acute Category: Medical Code(s): R41.82 - Altered mental status, unspecified (2) Acute UTI: Status: Acute Category: Medical Code(s): N39.0 - Urinary tract infection, site not specified (3) Hyperkalemia: Status: Acute Category: Medical Code(s): E87.5 - Hyperkalemia (4) Atrial fibrillation: Status: Acute Qualifiers: Atrial fibrillation type: paroxysmal Qualified Code(s): I48.0 - Paroxysmal atrial fibrillation Category: Medical Code(s): I48.91 - Unspecified atrial fibrillation (5) CHF (congestive heart failure): Status: Acute Qualifiers: Heart failure chronicity: acute on chronic Heart failure type: unspecified Qualified Code(s): I50.9 - Heart failure, unspecified Category: Medical Code(s): I50.9 - Heart failure, unspecified (6) Diabetes mellitus: Problem Comment: type 2 non insulin dep Status: Acute Qualifiers: Diabetes mellitus complication status: with hyperglycemia Diabetes mellitus [facility] insulin use: with intermediate card tender use Diabetes mellitus type: type 2 Qualified Code(s): E11.65 - Type 2 diabetes mellitus with hyperglycemia Category: Medical Code(s): E11.9 - Type 2 diabetes mellitus without complications (7) Hypertension: Status: Acute Qualifiers: Hypertension type: essential hypertension Qualified Code(s): I10 - Essential (primary) hypertension Category: Medical Code(s): I10 - Essential (primary) hypertension (8) Hyperlipidemia: Status: Acute Qualifiers: Hyperlipidemia type: unspecified Qualified Code(s): E78.5 - Hyperlipidemia, unspecified Category: Medical Code(s): E78.5 - Hyperlipidemia, unspecified (9) Hypothyroidism: Status: Acute Qualifiers: Hypothyroidism type: acquired Qualified Code(s): E03.9 - Hypothyroidism, unspecified Category: Medical Code(s): E03.9 - Hypothyroidism, unspecified Plan 73 year old female presented to the [facility] ED via EMS from home for AMS, general debility, and weakness. PMHX of HTN, HLD, CAD, A-FIB, DM, COPD, and obesity. She was recently discharged from a halfway due to insurance issues and has been declining since. Her last admission was on 09/01/23 for concerns of bacteremia. Her ED workup revealed creatinine of 3.80, K of 5.3, and urine positive for nitrates and WBC's. The pt's abd CT revealed no hydronephrosis or obstructive process. Concern for UTI. Initiated on antibiotics. Showing slow improvement in mentation. Working with therapy today. Continues to necessitate inpatient management. Family adamant that they will be taking her home. Anticipate discharge in the next 1 to 2 days. Problems addressed as follows: AMS, improving REDD, slowly improving HYPERKALEMIA -Creatinine 3.8 on admission, baseline approximately 1-1.4. 2.8 this morning on labs with BUN of 43. Repeat BMP this afternoon. Repeat CBC, CMP, magnesium ordered for the morning. -Tolerating p.o. fluids, holding on further IV fluids. Holding nephrotoxic medications. -Potassium 4.9, no indication for further treatment. UTI -UA positive for nitrates and WBC, bblood and urine culture pending -Continue Rocephin IV 2g @ 24 hr DM -ssi insulin, fingersticks ACHS. A1c well-controlled, not diabetic based on A1c. Recommend adjustments to insulin at discharge given risk for hypoglycemia. -A1c 5.7 AFIB CHF HTN HLD HYPOTHYROIDISM -continue eliquis 5mg, lipitor 40mg, buspar 5mg, plavix 75mg, citalopram 40mg, levothyroxine 50 mcg, protonix 40mg, and mirlax. -TSH 1.72 and T4 7.1 OBESITY: complicates all aspects of care FULL CODE DIABETIC DIET DVT: ELIQUIS
--- NOTE | 2023-09-28 06:28 | PC.NURSE ---
Pt is alert to self and currently on 3L and bi-pap. Pt is extremely resistive of care despite frequent education of needs. charge nurse and FAMILY PRACTICE PHYSICIAN aware. Pt denies pain and has tolerated fluids well this shift.
[2023-09-28] MEDS: IPRATROPIUM/ALBUTEROL 3 ML NEB IH ×4 (06:39→23:28)
[2023-09-28 07:19] LABS: Basophils % 0.5 % (0.1-2.0); Eosinophils # 0.1 K/mm3 (0.0-0.4); Eosinophils % 1.5 % (0.1-12.0); Hematocrit 27.5 % (37.0-47.0); Hemoglobin 8.4 g/dL (12.2-16.2); Lymphocytes # 1.1 K/mm3 (0.7-4.5); Lymphocytes % 16.2 % (10-50); Mean Corpuscular HGB Conc 30.7 g/dL (31.8-35.4); Mean Corpuscular Volume 78.4 fl (81-99); Mean Platelet Volume 8.1 fl (7.4-10.4); Monocytes # 0.4 K/mm3 (0.1-1.0); Monocytes % 6.3 % (1.7-9.3); Neutrophils # 5.3 K/mm3 (1.8-7.8); Neutrophils % 75.5 % (37.0-80.0); Platelet Count 206 K/mm3 (142-424)
[2023-09-28 07:31] LABS: Anion Gap 12.9 mEq/L (5-15); Blood Urea Nitrogen 43 mg/dl (7-17); Carbon Dioxide 25 mmol/L (22.0-30.0); Chloride 112 mmol/L (98-107); Potassium 4.9 mmoL/L (3.5-5.1); Sodium 145 mmol/L (136-145)
[2023-09-28 07:32] LABS: Alanine Aminotransferase 19 U/L (12-78); Albumin Level 3.3 g/dl (3.5-5.0); Alkaline Phosphatase 110 U/L (38-126); Aspartate Amino Transferase 23 U/L (14-36); Bilirubin,Total 0.3 mg/dl (0.2-1.3); Calcium 8.9 mg/dl (8.4-10.2); Creatinine Clearance Estimated 15 mL/min (50-200); Estimated Glomerular Filt Rate 17 ml/min (>60); GFR (African American) 20 ML/MIN (>60); Globulin 3.2 g/dL (1.3-3.2); Glucose 103 mg/dl (74-100); Magnesium 1.7 mg/dl (1.6-2.3); Total Protein,Serum 6.5 g/dl (6.3-8.2)
[2023-09-28] MEDS: CEFTRIAXONE SODIUM 2 GM in 0.9 % SODIUM CHLORIDE 100 ML IV (08:46)
[2023-09-28] MEDS: POLYETHYLENE GLYCOL 3350 17 GM PACKET PO (08:46)
[2023-09-28] MEDS: CITALOPRAM 40MG TABLET 40 MG PO (08:47)
[2023-09-28] MEDS: BISOPROLOL 5MG TABLET 2.5 MG PO (08:47)
[2023-09-28] MEDS: CLOPIDOGREL 75MG TAB 75 MG PO (08:47)
[2023-09-28] MEDS: BUSPIRONE HCL 5 MG TABLET PO (08:47)
[2023-09-28] MEDS: APIXABAN 5MG TABLET 5 MG PO ×2 (08:47→20:42)
[2023-09-28] MEDS: LEVOTHYROXINE 50MCG (0.05MG) TAB 50 MCG PO (08:47)
[2023-09-28] MEDS: FERROUS SULFATE 325MG TABLET 325 MG PO (08:48)
--- NOTE | 2023-09-28 10:04 | EXP.PULM.PN ---
Subjective *Date: 09/28/23 *Time: 12:29 Interval history: No acute respiratory events overnight. Pulmonology Exam Inpatient Vital signs and Labs for Last 24 Hours: Temp Pulse Resp BP Pulse Ox O2 Del Method O2 Flow Rate 97.7 F 85 18 145/70 H 98 BiPAP 3 09/28/23 08:00 09/28/23 08:00 09/28/23 08:00 09/28/23 08:00 09/28/23 08:00 09/28/23 08:00 09/28/23 06:31 FiO2 30 09/28/23 06:38 Laboratory Results - last 24 hr 09/27/23 10:36: Specimen Source Right radial, O2 % 40, ABG pH 7.32 L, ABG pCO2 49.1 H, ABG pO2 124.5 H, ABG HCO3 24.6, ABG Total CO2 26.1, ABG O2 Saturation 98, ABG Base Excess -1.5, Tru Test Acceptable, PEEP Bipap 20/10 09/27/23 11:09: POC Glucose 103 09/27/23 16:19: POC Glucose 103 09/27/23 17:35: Sodium 142, Potassium 5.2 H, Chloride 111 H, Carbon Dioxide 28, Anion Gap 8.2, BUN 54 H, Creatinine 3.20 H, Estimated Creat Clear 13, Estimated GFR 14 L*, Est GFR ( Amer) 17 L*, Glucose 98, Calcium 9.0 09/27/23 20:07: POC Glucose 94 09/28/23 05:24: POC Glucose 103 09/28/23 06:39: WBC 7.0, RBC 3.50 L, Hgb 8.4 L, Hct 27.5 L, MCV 78.4 L, MCH 24.0 L, MCHC 30.7 L, RDW 22.0 H, Plt Count 206, MPV 8.1, Neut % (Auto) 75.5, Lymph % (Auto) 16.2, [place] % (Auto) 6.3, Eos % (Auto) 1.5, Baso % (Auto) 0.5, Neut # (Auto) 5.3, Lymph # (Auto) 1.1, [place] # (Auto) 0.4, Eos # (Auto) 0.1, Baso # (Auto) 0.0, Sodium 145, Potassium 4.9, Chloride 112 H, Carbon Dioxide 25, Anion Gap 12.9, BUN 43 H, Creatinine 2.80 H, Estimated Creat Clear 15, Estimated GFR 17 L*, Est GFR ( Amer) 20 L, Glucose 103 H, Calcium 8.9, Magnesium 1.7, Total Bilirubin 0.3, AST 23, ALT 19, Alkaline Phosphatase 110, Total Protein 6.5, Albumin 3.3 L, Globulin 3.2, Albumin/Globulin Ratio 1.0 L I & O for Labs for Last 24 Hours: Intake & Output 09/25/23 09/26/23 09/27/23 09/28/23 23:59 23:59 23:59 23:59 Intake Total 1340 / 3318 2572 / 2572 Output Total 1850 / 1850 1000 / 1000 Balance -510 / 1468 1572 / 1572 Weight 244 lb 245 lb 2.464 oz 251 lb 3.2 oz Constitutional: Present severe distress Head: Present normocephalic and atraumatic ENT: Present normal exam, normal oropharynx and mucous membranes moist Neck: Present normal inspection and full ROM Respiratory: Present diminished air movement and able to speak in complete sentences; Absent respiratory distress or wheezes Cardiac: Present S1/S2, Tachycardia and radial pulses present GI: Present soft and distention; Absent tenderness or guarding Rectal (female): Present deferred (female): Present deferred Skin: Present intact; Absent cyanosis or jaundice Neuro: Present alert and awake; Absent oriented x 3 Extremities: Present normal inspection; Absent clubbing or cyanosis Psychiatric: Present normal affect and cooperative Assessment and Plan *Assessment and plan (1) Acute and chronic respiratory failure with hypoxia: Status: Acute Category: Medical Code(s): J96.21 - Acute and chronic respiratory failure with hypoxia (2) Acute respiratory failure with hypoxia and hypercarbia: Status: Acute Category: Medical Code(s): J96.01 - Acute respiratory failure with hypoxia; J96.02 - Acute respiratory failure with hypercapnia (3) Pneumonia: Status: Acute Qualifiers: Laterality: right Lung location: lower lobe of lung Pneumonia type: due to unspecified organism Qualified Code(s): J18.9 - Pneumonia, unspecified organism Category: Medical Code(s): J18.9 - Pneumonia, unspecified organism Plan Ms. Armas is a 73-year-old female greater than 75-wftv-ecyl smoking history. COVID-19 pneumonia, exacerbation of COPD pulmonary hypertension complex restrictive lung disease secondary to chest wall limitation presented to the ER with worsening respiratory's altered mentation found to be in hypercarbic respiratory failure needing noninvasive ventilatory support and pulmonary was called for further evaluation and management. Chest x-ray Concern for left lower lobe retrocardiac opacity., otherwise stable with no dense consolidative airspace disease. Afebrile. Hemodynamically stable. No evidence of significant neutrophilic leukocytosis. Patient admission was found to be significantly dehydrated, REDD primary team following. Receiving IV fluids. VBG upon admission showed mild hypercarbic respiratory failure, subsequent ABGs did not show any evidence of significant hypercarbia, pH is 7.32 with a pCO2 49.1. Concomitant metabolic acidosis also noted. On initial examination auscultation no significant wheezing noted. Given no significant worsening oxygen requirements, hold off on initiating treatment for hospital-acquired pneumonia at this point of time. Patient recently discharged from the hospital on 09/06/2023 with vancomycin and gentamicin for Enterococcus bacteremia. Interval update: No significant respiratory vents overnight. Admits compliance with BiPAP. Patient admits using noninvasive ventilator therapy for sleep apnea at baseline. Weaned to room air during the daytime this morning. Plan: -Continue oxygen supplementation as needed to maintain O2 saturation goal of 90% over during the daytime. Continue noninvasive ventilator therapy at night for her noted sleep apnea. -Ceftriaxone and azithromycin pending culture results. -Continue Trelegy inhaler along with DuoNebs every 6 hours on as-needed basis. Home inhalers including Breo 100. # Thank you for involving pulmonary in this patient care. Will continue to follow.
--- NOTE | 2023-09-28 10:06 | HMH.OTEV ---
OT Inpatient Evaluation Rehab OT IP Evaluation Start: 09/27/23 17:02 Freq: ONCE Status: Active Protocol: Document 09/28/23 09:58 [facility] (Rec: 09/28/23 10:06 [facility] [id number]) Rehab OT IP Assessment Subjective History Pt oriented x 2 on arrival. Pt agreeable to engage in therapy evaluation. Pt admitted on 09/27/23 due to REDD and UTI. History and PHysical: 73 year old female presented to the [facility] ED via EMS from home for AMS, general debility , and weakness. PMHX of HTN, HLD, CAD, A-FIB, DM, COPD, and obesity. She was recently discharged from a longterm due to insurance issues and has been declining since. Her last admission was on 09/01/23 for concerns of bacteremia. Her ED workup revealed creatinine of 3.80, K of 5.3, and urine positive for nitrates and WBC's. The pt's abd CT revealed no hydronephrosis or obstructive process. She was given 1L of LR, lokelma, and rocpehin. The ED physician consulted the hospitalist team for further medical management. I admitted the pt to the medical floor. She will continue to receive antibiotic coverage and treatment for her REDD. Subjective I need help. Pt was discharged from SNF this past monday and returned home with family. Pt claims she is normally independent with ADLs, but is dependent upon others for completion of IADLs. Pt also claims she is able to ambulate using rolling walker. Objective Patient Orientation Person,Birthday Right Upper Extremity Gross ROM WFL Left Upper Extremity Gross ROM WFL Bed Mobility bed mobility-scooting,bed mobility - supine/sit Assist Level Minimal x 2 (25% assist) Transfer Training Sit/Stand Transfer Assist Level Minimal x 2 (25% assist) Rehab OT IP prob,goals,plan Problems Date of Evaluation: 09/28/23 OT IP Problems Bed Mobility,Transfers,Balance ,Self care,Safety Rehab Potential Rehab Potential Good Equipment Needs Assistive Devices Rolling / Wheeled Walker Plan OT intervention Plan Bed Mobility,Transfers,Balance ,Self care,Safety,Therapeutic Exercise OT Plan Frequency Daily Duration LOS Discharge Goals Bed Mobility Ability Assistance x1 Sit to Stand Chair Transfer Ability Moderate x 1 (50% assist) Chair Transfer Ability Moderate x 1 (50% assist) Chair Transfer Technique Sit to/from Ambulatory Chair Transfer Assistive Devices Rolling Walker Feeding Ability Assist with Tray Set Up Lower Body Dressing Ability Moderate Assistance Upper Body Dressing Ability Minimal Assistance Bathing Ability Moderate Assistance Performing Toilet Hygiene Ability Moderate Assistance Overall Commode/Toilet Transfer Ability Moderate Assistance Commode/Toilet Transfer Technique Sit to/from Ambulatory Commode/Toilet Transfer Assistive Raised Toilet Seat,Grab Bars Devices Oral Care Assist Contact Guard,Minimal Assistance Decrease in Endurance Yes Discharge Plan OT Discharge Plan Pt will continue to be seen for OT services while at [facility]. Pt would benefit most from short term rehab at SNF following discharge from hospital. Continued skilled therapy is important for patient to improve strength, safety, endurance, and ADL independence to reach PLOF. Eval Complexity Eval Charge Codes 43285 - Moderate Complexity PHYSICIAN CERTIFICATION: I certify the specified therapy services for Shilpa Armas are required, authorized, and reviewed every 30 days.
--- NOTE | 2023-09-28 10:56 | PC.NURSE ---
RESP CARE NOTE: SpO2 on room air at 86%, oxygen replaced at 2 lpm. Will continue to monitor patient.
[2023-09-28 11:42] LABS: POC Glucose,Bedside 166 (70-110)
--- NOTE | 2023-09-28 11:45 | CARE MANAGER ---
Addendum entered by Maria Elena Coles 10/02/23 08:13: Updated patient information/order has been faxed to [facility] to resume services. Addendum entered by Lawanda Frausto RN 09/28/23 13:02: Son states that the patient currently has [facility] and will continue with them after discharge. Addendum entered by Lawanda Frausto RN 09/28/23 12:13: Son called back and they will take the patient home at time of discharge. They have home health coming to the home and family is caring for patient. Explained the patient is needing a lot of assistance for ADLs. He states they want her to go home when medically ready. CHRISTIANE Sosa Original Note: Spoke with patient regarding PT/OT recommendations of rehab. She states she would like me to speak with her family. Spoke with her son, Asad. He does not want her to go back to rehab. He wants to speak with family and call me back, but he will likely be taking her home. CHRISTIANE Sosa
[2023-09-28] MEDS: humaLOG 100 UNITS/ML 3ML VIAL (SSI) SQ ×2 (11:56→21:28)
--- NOTE | 2023-09-28 12:30 | HMH.PTEV ---
Physical Therapy Evaluation Rehab PT IP Evaluation Start: 09/27/23 17:02 Freq: ONCE Status: Active Protocol: Document 09/28/23 12:25 LAURO (Rec: 09/28/23 12:30 LAURO [id number]) Subjective/History History History Per H&P: 73 year old female presented to the [facility] ED via EMS from home for AMS, general debility , and weakness. PMHX of HTN, HLD, CAD, A-FIB, DM, COPD, and obesity. She was recently discharged from a [facility] due to insurance issues and has been declining since. Her last admission was on 09/01/23 for concerns of bacteremia. Her ED workup revealed creatinine of 3.80, K of 5.3, and urine positive for nitrates and WBC's. The pt's abd CT revealed no hydronephrosis or obstructive process. She was given 1L of LR, lokelma, and rocpehin. The ED physician consulted the hospitalist team for further medical management. I admitted the pt to the medical floor. She will continue to receive antibiotic coverage and treatment for her REDD. Subjective Subjective I live with my mom Pt claims she is IND with ADLs and mobility. DEP for IADLs. Pt reports she was walking without any device. Pt is a questionable historian d/t being pleasantly confused at times. New diagnosis of cancer in past 12 No months? Rehab PT IP Eval Objective Appearance Patient Behavior Appropriate,Cooperative Patient Orientation Person Difficulty following instructions none Speech Pattern Clear,Appropriate Ambulation Patient Able to Ambulate No Transfers Bed Transfer Ability Minimal x 2 (25% assist) Sit to Stand Bed Transfer Ability Minimal x 2 (25% assist) Rehab PT IP prob,goals,plan Problems Date of Evaluation: 09/28/23 PT IP Problems Bed Mobility,Transfers,Gait, Balance,Self care,Safety Rehab Potential Rehab Potential Fair Equipment Needs Assistive Devices Rolling / Wheeled Walker Plan PT Intervention Plan Bed Mobility,Transfers,Gait, Balance,Safety,Therapeutic Exercise Other Intervention Plan 1-2 times PT Plan Frequency Daily Duration LOS Discharge Goals Bed Transfer Ability Minimal x 1 (25% assist) Sit to Stand Chair Transfer Ability Moderate x 1 (50% assist) Discharge Plan PT Discharge Plan Pt not safe to return home at this time d/t current level of functional mobility. PT recommending short-term rehabilitation stay upon d/c from [facility]. Pt would benefit from skilled PT while at [facility] to prevent further functional decline and maximize safety with mobility. Eval Complexity Eval Charge Codes 43907 - High Complexity PHYSICIAN CERTIFICATION: I certify the specified therapy services for Shilpa Armas are required, authorized, and reviewed every 30 days.
[2023-09-28] MEDS: AZITHROMYCIN 500 MG in 0.9 % SODIUM CHLORIDE 250 ML 250 MG IV (14:06)
[2023-09-28 17:47] LABS: Chloride 111 mmol/L (98-107); Potassium 5.1 mmoL/L (3.5-5.1); Sodium 140 mmol/L (136-145)
[2023-09-28 17:50] LABS: Anion Gap 6.1 mEq/L (5-15); Blood Urea Nitrogen 43 mg/dl (7-17); Calcium 8.7 mg/dl (8.4-10.2); Carbon Dioxide 28 mmol/L (22.0-30.0); Creatinine Clearance Estimated 18 mL/min (50-200); Estimated Glomerular Filt Rate 20 ml/min (>60); GFR (African American) 24 ML/MIN (>60); Glucose 110 mg/dl (74-100)
[2023-09-28] MEDS: ATORVASTATIN 40MG TABLET 40 MG PO (20:42)
[2023-09-28] MEDS: PANTOPRAZOLE 40MG TABLET 40 MG PO (20:42)
[2023-09-29] VITALS (7 sets, daily range): BP systolic 110–151; BP diastolic 46–83; PULSE 58–72; RESP 18–29; TEMP 36.6–37.2; O2SAT 93–100; BMI 41.3
[2023-09-29 05:50] LABS: POC Glucose,Bedside 117 (70-110)
[2023-09-29] MEDS: IPRATROPIUM/ALBUTEROL 3 ML NEB IH ×2 (06:42→13:59)
--- NOTE | 2023-09-29 06:46 | PC.NURSE ---
rested well tonight. worn CPAP without issues. took meds whole.
[2023-09-29 06:53] LABS: Basophils # 0.1 K/mm3 (0-0.2); Basophils % 0.7 % (0.1-2.0); Eosinophils # 0.1 K/mm3 (0.0-0.4); Eosinophils % 1.9 % (0.1-12.0); Hematocrit 26.3 % (37.0-47.0); Hemoglobin 8.1 g/dL (12.2-16.2); Lymphocytes # 1.3 K/mm3 (0.7-4.5); Lymphocytes % 20.1 % (10-50); Mean Corpuscular HGB Conc 30.7 g/dL (31.8-35.4); Mean Corpuscular Volume 78.3 fl (81-99); Mean Platelet Volume 7.8 fl (7.4-10.4); Monocytes # 0.3 K/mm3 (0.1-1.0); Monocytes % 5.1 % (1.7-9.3); Neutrophils # 4.8 K/mm3 (1.8-7.8); Neutrophils % 72.1 % (37.0-80.0); Platelet Count 191 K/mm3 (142-424); Red Blood Count 3.36 M/mm3 (4.20-5.40); White Blood Count 6.6 K/mm3 (4.8-10.8)
[2023-09-29 07:20] LABS: Alanine Aminotransferase 20 U/L (12-78); Albumin Level 3.4 g/dl (3.5-5.0); Alkaline Phosphatase 100 U/L (38-126); Anion Gap 10.1 mEq/L (5-15); Aspartate Amino Transferase 33 U/L (14-36); Bilirubin,Total 0.3 mg/dl (0.2-1.3); Blood Urea Nitrogen 38 mg/dl (7-17); Calcium 8.9 mg/dl (8.4-10.2); Carbon Dioxide 26 mmol/L (22.0-30.0); Chloride 111 mmol/L (98-107); Creatinine Clearance Estimated 19 mL/min (50-200); Estimated Glomerular Filt Rate 21 ml/min (>60); GFR (African American) 25 ML/MIN (>60); Globulin 3.3 g/dL (1.3-3.2); Glucose 112 mg/dl (74-100); Potassium 5.1 mmoL/L (3.5-5.1); Sodium 142 mmol/L (136-145); Total Protein,Serum 6.7 g/dl (6.3-8.2)
[2023-09-29 07:25] LABS: Magnesium 1.7 mg/dl (1.6-2.3)
[2023-09-29] MEDS: CEFTRIAXONE SODIUM 2 GM in 0.9 % SODIUM CHLORIDE 100 ML IV (08:50)
[2023-09-29] MEDS: BISOPROLOL 5MG TABLET 2.5 MG PO (08:50)
[2023-09-29] MEDS: APIXABAN 5MG TABLET 5 MG PO ×2 (08:51→20:49)
[2023-09-29] MEDS: CITALOPRAM 40MG TABLET 40 MG PO (08:51)
[2023-09-29] MEDS: FERROUS SULFATE 325MG TABLET 325 MG PO (08:51)
[2023-09-29] MEDS: CLOPIDOGREL 75MG TAB 75 MG PO (08:51)
[2023-09-29] MEDS: LEVOTHYROXINE 50MCG (0.05MG) TAB 50 MCG PO (08:51)
[2023-09-29] MEDS: AZITHROMYCIN 500 MG in 0.9 % SODIUM CHLORIDE 250 ML 250 MG IV (09:17)
--- NOTE | 2023-09-29 09:31 | P.PN_ITS ---
Subjective *Date: 09/29/23 *Time: 12:36 Interval history: No acute respiratory events overnight. Patient denies any new respiratory complaints. Pulmonology Exam Inpatient Vital signs and Labs for Last 24 Hours: Temp Pulse Resp BP Pulse Ox O2 Del Method O2 Flow Rate 98.4 F 72 22 115/60 100 Nasal Cannula 3 09/29/23 08:00 09/29/23 08:00 09/29/23 08:00 09/29/23 08:00 09/29/23 08:00 09/29/23 08:00 09/29/23 08:00 FiO2 30 09/29/23 06:41 Laboratory Results - last 24 hr 09/28/23 11:28: POC Glucose 166 H 09/28/23 16:29: POC Glucose 117 H 09/28/23 17:21: Sodium 140, Potassium 5.1, Chloride 111 H, Carbon Dioxide 28, Anion Gap 6.1, BUN 43 H, Creatinine 2.40 H, Estimated Creat Clear 18, Estimated GFR 20 L, Est GFR ( Amer) 24 L, Glucose 110 H, Calcium 8.7 09/29/23 06:15: WBC 6.6, RBC 3.36 L, Hgb 8.1 L, Hct 26.3 L, MCV 78.3 L, MCH 24.0 L, MCHC 30.7 L, RDW 22.0 H, Plt Count 191, MPV 7.8, Neut % (Auto) 72.1, Lymph % (Auto) 20.1, [place] % (Auto) 5.1, Eos % (Auto) 1.9, Baso % (Auto) 0.7, Neut # (Auto) 4.8, Lymph # (Auto) 1.3, [place] # (Auto) 0.3, Eos # (Auto) 0.1, Baso # (Auto) 0.1, Sodium 142, Potassium 5.1, Chloride 111 H, Carbon Dioxide 26, Anion Gap 10.1, BUN 38 H, Creatinine 2.30 H, Estimated Creat Clear 19, Estimated GFR 21 L, Est GFR ( Amer) 25 L, Glucose 112 H, Calcium 8.9, Magnesium 1.7, Total Bilirubin 0.3, AST 33 D, ALT 20, Alkaline Phosphatase 100, Total Protein 6.7, Albumin 3.4 L, Globulin 3.3 H, Albumin/Globulin Ratio 1.0 L I & O for Labs for Last 24 Hours: Intake & Output 09/26/23 09/27/23 09/28/23 09/29/23 23:59 23:59 23:59 23:59 Intake Total 1340 / 3318 3082 / 3082 240 / 240 Output Total 1850 / 1850 2800 / 2800 800 / 800 Balance -510 / 1468 282 / 282 -560 / -560 Weight 244 lb 245 lb 2.464 oz 251 lb 3.2 oz 242 lb 4.8 oz Microbiology Reports for the Last 24 Hours: Microbiology 09/26/23 22:51 Urine,Catheterized Urine Culture - Final Constitutional: Present severe distress Head: Present normocephalic and atraumatic ENT: Present normal exam, normal oropharynx and mucous membranes moist Neck: Present normal inspection and full ROM Respiratory: Present diminished air movement and able to speak in complete sentences; Absent respiratory distress or wheezes Cardiac: Present S1/S2, Tachycardia and radial pulses present GI: Present soft and distention; Absent tenderness or guarding Rectal (female): Present deferred (female): Present deferred Skin: Present intact; Absent cyanosis or jaundice Neuro: Present alert and awake; Absent oriented x 3 Extremities: Present normal inspection; Absent clubbing or cyanosis Psychiatric: Present normal affect and cooperative Assessment and Plan *Assessment and plan (1) Acute and chronic respiratory failure with hypoxia: Status: Acute Category: Medical Code(s): J96.21 - Acute and chronic respiratory failure with hypoxia (2) Acute respiratory failure with hypoxia and hypercarbia: Status: Acute Category: Medical Code(s): J96.01 - Acute respiratory failure with hypoxia; J96.02 - Acute respiratory failure with hypercapnia (3) Pneumonia: Status: Acute Qualifiers: Laterality: right Lung location: lower lobe of lung Pneumonia type: due to unspecified organism Qualified Code(s): J18.9 - Pneumonia, unspecified organism Category: Medical Code(s): J18.9 - Pneumonia, unspecified organism Plan Ms. Armas is a 73-year-old female greater than [id number] smoking history. COVID-19 pneumonia, exacerbation of COPD pulmonary hypertension complex restrictive lung disease secondary to chest wall limitation presented to the ER with worsening respiratory's altered mentation found to be in hypercarbic respiratory failure needing noninvasive ventilatory support and pulmonary was called for further evaluation and management. Chest x-ray Concern for left lower lobe retrocardiac opacity., otherwise stable with no dense consolidative airspace disease. Afebrile. Hemodynamically stable. No evidence of significant neutrophilic leukocytosis. Patient admission was found to be significantly dehydrated, REDD primary team following. Receiving IV fluids. VBG upon admission showed mild hypercarbic respiratory failure, subsequent ABGs did not show any evidence of significant hypercarbia, pH is 7.32 with a pCO2 49.1. Concomitant metabolic acidosis also noted. On initial examination auscultation no significant wheezing noted. Given no significant worsening oxygen requirements, hold off on initiating treatment for hospital-acquired pneumonia at this point of time. Patient recently discharged from the hospital on 09/06/2023 with vancomycin and gentamicin for Enterococcus bacteremia. Interval update: No significant respiratory events overnight. Continue to recommend using NIV for her sleep apnea /chronic hypercarbic respiratory failure. Weaned to room air yesterday. This morning on examination 2 L saturating 96%. Weaned to room air again. Will continue oxygen only on as-needed basis to maintain O2 saturation goal of 90 to 95%. Plan: -Continue oxygen supplementation as needed to maintain O2 saturation goal of 90% over during the daytime. Continue noninvasive ventilator therapy at night for her noted sleep apnea. -Ceftriaxone and azithromycin pending culture results. -Continue Trelegy inhaler along with DuoNebs every 6 hours on as-needed basis. Home inhalers including Breo 100. # Thank you for involving pulmonary in this patient care. Patient can be discharged from pulmonary standpoint will follow patient in pulmonary clinic in 2 weeks post discharge.
[2023-09-29] MEDS: IRON SUCROSE COMPLEX 200 MG in 0.9 % SODIUM CHLORIDE 100 ML 220 MG IV (10:35)
[2023-09-29] MEDS: BUSPIRONE HCL 5 MG TABLET PO (10:37)
[2023-09-29] MEDS: humaLOG 100 UNITS/ML 3ML VIAL (SSI) SQ (11:27)
--- NOTE | 2023-09-29 15:52 | PC.NURSE ---
pt room air sat 85% at this time
--- NOTE | 2023-09-29 15:53 | PC.NURSE ---
pt room air sat is 85% at this time, at rest
--- NOTE | 2023-09-29 18:52 | EXP.ACUTE.PN ---
Subjective *Date: 09/29/23 *Time: 18:52 Interval history: Patient appears more alert today. Asks who I am but gives appropriate answers to questions. Wore BiPAP overnight. On 3 L this morning. No nausea or vomiting. Participating with therapy. Feeding herself. Medical Exam Vital signs and Labs for Last 24 Hours: Vital Signs Temp Pulse Pulse Resp BP Pulse Ox O2 Del Method 09/29/23 15:42 98.9 F 66 24 129/46 L 93 L Nasal Cannula 09/29/23 13:00 Nasal Cannula 09/29/23 11:00 Nasal Cannula 09/29/23 08:51 Nasal Cannula 09/29/23 08:00 98.4 F 72 22 115/60 100 Nasal Cannula 09/29/23 06:41 63 09/29/23 06:41 61 09/29/23 06:41 09/29/23 06:32 CPAP 09/29/23 04:28 BiPAP 09/29/23 04:00 98 F 58 L 18 151/83 H 93 L BiPAP 09/29/23 03:00 BiPAP 09/29/23 02:14 09/29/23 01:00 BiPAP 09/28/23 23:59 55 L 09/28/23 23:59 53 L 09/28/23 23:00 Nasal Cannula 09/28/23 21:49 09/28/23 21:00 Nasal Cannula 09/28/23 20:00 Nasal Cannula, BiPAP 09/28/23 20:00 98 F 75 18 160/65 H 94 L BiPAP O2 Flow Rate FiO2 09/29/23 15:42 2 09/29/23 13:00 3 09/29/23 11:00 3 09/29/23 08:51 3 09/29/23 08:00 3 09/29/23 06:41 09/29/23 06:41 09/29/23 06:41 30 09/29/23 06:32 09/29/23 04:28 09/29/23 04:00 09/29/23 03:00 09/29/23 02:14 30 09/29/23 01:00 09/28/23 23:59 09/28/23 23:59 09/28/23 23:00 3 09/28/23 21:49 30 09/28/23 21:00 3 09/28/23 20:00 3 09/28/23 20:00 Intake and Output 09/29/23 09/29/23 09/29/23 07:59 15:59 23:59 Intake Total 1420 / 1420 0 / 1420 Output Total 800 / 1835 835 / 1835 200 / 1835 Balance -800 / -415 585 / -415 -200 / -415 Intake: Intake, Oral Amount 1420 / 1420 0 / 1420 Output: Output, Urine Amount 800 / 1835 835 / 1835 200 / 1835 Other: Number of Unmeasured Voids 1 0 0 Number of Bowel Movements 1 Weight 109.905 kg Patient Weight 09/29/23 23:59 Weight 109.905 kg Laboratory Results - last 24 hr 09/28/23 16:29: POC Glucose 117 H 09/29/23 06:15: WBC 6.6, RBC 3.36 L, Hgb 8.1 L, Hct 26.3 L, MCV 78.3 L, MCH 24.0 L, MCHC 30.7 L, RDW 22.0 H, Plt Count 191, MPV 7.8, Neut % (Auto) 72.1, Lymph % (Auto) 20.1, [place] % (Auto) 5.1, Eos % (Auto) 1.9, Baso % (Auto) 0.7, Neut # (Auto) 4.8, Lymph # (Auto) 1.3, [place] # (Auto) 0.3, Eos # (Auto) 0.1, Baso # (Auto) 0.1, Sodium 142, Potassium 5.1, Chloride 111 H, Carbon Dioxide 26, Anion Gap 10.1, BUN 38 H, Creatinine 2.30 H, Estimated Creat Clear 19, Estimated GFR 21 L, Est GFR ( Amer) 25 L, Glucose 112 H, Calcium 8.9, Magnesium 1.7, Total Bilirubin 0.3, AST 33 D, ALT 20, Alkaline Phosphatase 100, Total Protein 6.7, Albumin 3.4 L, Globulin 3.3 H, Albumin/Globulin Ratio 1.0 L I & O for Labs for Last 24 Hours: Intake & Output 09/26/23 09/27/23 09/28/23 09/29/23 23:59 23:59 23:59 23:59 Intake Total 1340 / 3318 3082 / 3082 1420 / 1420 Output Total 1850 / 1850 2800 / 2800 1835 / 1835 Balance -510 / 1468 282 / 282 -415 / -415 Weight 110.677 kg 111.2 kg 113.942 kg 109.905 kg Microbiology Reports for the Last 24 Hours: Microbiology 09/26/23 21:50 Blood Blood Culture - Preliminary 09/26/23 22:51 Urine,Catheterized Urine Culture - Final Constitutional: Present no acute distress, morbidly obese, chronically ill appearing and cooperative Head: Present atraumatic ENT: Present normal exam Comment:: Cushingoid face Neck: Present normal inspection and full ROM Respiratory: Present rhonchi, distant breath sounds, diminished air movement and symmetric chest movement; Absent wheezes or crackles Cardiac: Present Reg Rate and Rhythm GI: Present soft; Absent tenderness Rectal (female): Present deferred (female): Present deferred Extremities: Present full ROM and edema (trace) Skin: Present intact Neuro: Present alert, awake and moves all extremities Assessment and Plan *Assessment and plan (1) AMS (altered mental status): Status: Acute Category: Medical Code(s): R41.82 - Altered mental status, unspecified (2) Acute UTI: Status: Acute Category: Medical Code(s): N39.0 - Urinary tract infection, site not specified (3) Hyperkalemia: Status: Acute Category: Medical Code(s): E87.5 - Hyperkalemia (4) Atrial fibrillation: Status: Acute Qualifiers: Atrial fibrillation type: paroxysmal Qualified Code(s): I48.0 - Paroxysmal atrial fibrillation Category: Medical Code(s): I48.91 - Unspecified atrial fibrillation (5) CHF (congestive heart failure): Status: Acute Qualifiers: Heart failure chronicity: acute on chronic Heart failure type: unspecified Qualified Code(s): I50.9 - Heart failure, unspecified Category: Medical Code(s): I50.9 - Heart failure, unspecified (6) Diabetes mellitus: Problem Comment: type 2 non insulin dep Status: Acute Qualifiers: Diabetes mellitus type: type 2 Diabetes mellitus complication status: with hyperglycemia Diabetes mellitus intermediate manager insulin use: with jail use Qualified Code(s): E11.65 - Type 2 diabetes mellitus with hyperglycemia Category: Medical Code(s): E11.9 - Type 2 diabetes mellitus without complications (7) Hypertension: Status: Acute Qualifiers: Hypertension type: essential hypertension Qualified Code(s): I10 - Essential (primary) hypertension Category: Medical Code(s): I10 - Essential (primary) hypertension (8) Hyperlipidemia: Status: Acute Qualifiers: Hyperlipidemia type: unspecified Qualified Code(s): E78.5 - Hyperlipidemia, unspecified Category: Medical Code(s): E78.5 - Hyperlipidemia, unspecified (9) Hypothyroidism: Status: Acute Qualifiers: Hypothyroidism type: acquired Qualified Code(s): E03.9 - Hypothyroidism, unspecified Category: Medical Code(s): E03.9 - Hypothyroidism, unspecified Plan 73 year old female presented to the [facility] ED via EMS from home for AMS, general debility, and weakness. PMHX of HTN, HLD, CAD, A-FIB, DM, COPD, and obesity. She was recently discharged from a group home due to insurance issues and has been declining since. Her last admission was on 09/01/23 for concerns of bacteremia. Her ED workup revealed creatinine of 3.80, K of 5.3, and urine positive for nitrates and WBC's. The pt's abd CT revealed no hydronephrosis or obstructive process. Concern for UTI vs respiratory etiology of her confusion/infection. Initiated on antibiotics. Showing slow improvement in mentation. Working with therapy today. Continues to necessitate inpatient management. Family adamant that they will be taking her home. Anticipate discharge in the next 1 to 2 days. Problems addressed as follows: AMS, improving REDD, slowly improving HYPERKALEMIA -Creatinine 3.8 on admission, baseline approximately 1-1.4. 2.3 this morning on labs with BUN of 38. Repeat CBC, CMP, magnesium ordered for the morning. -Tolerating p.o. fluids, holding on further IV fluids. Holding nephrotoxic medications. -Potassium 5.1, no indication for further treatment. UTI versus pneumonia -UA positive for nitrates and WBC, single blood culture with gram-positive cocci, most likely contaminant. Other culture bottles remain negative. Urine with 10,000 CFU's. Not consistent with UTI. - Discussed case with pulmonology today, recommends continuing antibiotics and oxygen. Continue supplemental oxygen with goal sats greater 90%. Currently on 3 L. Continue BiPAP at night. -Continue ceftriaxone and azithromycin for urine and pneumonia. Clinicallyimproving however. White cell count normal at 6.6 -Continue Trelegy inhaler daily along with DuoNebs every 6 hours as needed. DM -ssi insulin, fingersticks ACHS. A1c well-controlled, not diabetic based on A1c. Recommend adjustments to insulin at discharge given risk for hypoglycemia. -Receiving 4 units daily of insulin, anticipate discontinuing insulin charge and can just oral regimen with metformin, initiated today. -A1c 5.7 AFIB CHF HTN HLD HYPOTHYROIDISM -continue eliquis 5mg, lipitor 40mg, buspar 5mg, plavix 75mg, citalopram 40mg, levothyroxine 50 mcg, protonix 40mg, and mirlax. -TSH 1.72 and T4 7.1 OBESITY: complicates all aspects of care FULL CODE DIABETIC DIET DVT: ELIQUIS
[2023-09-29 20:28] LABS: POC Glucose,Bedside 119 (70-110)
[2023-09-29] MEDS: ATORVASTATIN 40MG TABLET 40 MG PO (20:49)
[2023-09-29] MEDS: PANTOPRAZOLE 40MG TABLET 40 MG PO (20:49)
[2023-09-30 00:44] VITALS: RESP 20; RESP 35
[2023-09-30 04:00] VITALS: BP 134/75; PULSE 64; RESP 18; TEMP 37.1; O2SAT 98; BMI 44.6
[2023-09-30] MEDS: LEVOTHYROXINE 50MCG (0.05MG) TAB 50 MCG PO (06:45)
[2023-09-30] MEDS: PROMETHAZINE HCL 25MG/ML 1ML VIAL 25 MG IV (06:45)
[2023-09-30] MEDS: SODIUM CHLORIDE 0.9% 25ML BAG 25 ML IV (06:46)
[2023-09-30 07:38] LABS: Basophils % 0.4 % (0.1-2.0); Eosinophils # 0.1 K/mm3 (0.0-0.4); Hematocrit 25.8 % (37.0-47.0); Hemoglobin 8.3 g/dL (12.2-16.2); Lymphocytes # 1.2 K/mm3 (0.7-4.5); Mean Corpuscular Hemoglobin 24.7 pg (27.0-31.2); Mean Corpuscular Volume 77.1 fl (81-99); Mean Platelet Volume 7.5 fl (7.4-10.4); Monocytes # 0.4 K/mm3 (0.1-1.0); Monocytes % 6.2 % (1.7-9.3); Neutrophils # 4.6 K/mm3 (1.8-7.8); Neutrophils % 72.5 % (37.0-80.0); Platelet Count 183 K/mm3 (142-424); Red Blood Count 3.35 M/mm3 (4.20-5.40); Red Cell Distribution Width 21.9 % (11.5-17.5); White Blood Count 6.3 K/mm3 (4.8-10.8)
[2023-09-30] MEDS: CITALOPRAM 40MG TABLET 40 MG PO (07:39)
[2023-09-30] MEDS: FERROUS SULFATE 325MG TABLET 325 MG PO (07:39)
[2023-09-30] MEDS: CLOPIDOGREL 75MG TAB 75 MG PO (07:39)
[2023-09-30] MEDS: CEFTRIAXONE SODIUM 2 GM in 0.9 % SODIUM CHLORIDE 100 ML IV (07:39)
[2023-09-30] MEDS: BUSPIRONE HCL 5 MG TABLET PO (07:39)
[2023-09-30] MEDS: BISOPROLOL 5MG TABLET 2.5 MG PO (07:40)
[2023-09-30] MEDS: APIXABAN 5MG TABLET 5 MG PO (07:40)
[2023-09-30] MEDS: METFORMIN 500MG TABLET 500 MG PO (07:42)
[2023-09-30 07:44] VITALS: BP 126/66; PULSE 64; RESP 22; TEMP 37; O2SAT 100
[2023-09-30 07:45] LABS: Alanine Aminotransferase 18 U/L (12-78); Albumin Level 3.2 g/dl (3.5-5.0); Albumin/Globulin Ratio 1.1 (1.1-1.8); Alkaline Phosphatase 113 U/L (38-126); Anion Gap 7.5 mEq/L (5-15); Aspartate Amino Transferase 24 U/L (14-36); Bilirubin,Total 0.3 mg/dl (0.2-1.3); Blood Urea Nitrogen 26 mg/dl (7-17); Calcium 8.8 mg/dl (8.4-10.2); Carbon Dioxide 27 mmol/L (22.0-30.0); Chloride 110 mmol/L (98-107); Creatinine Clearance Estimated 19 mL/min (50-200); Estimated Glomerular Filt Rate 21 ml/min (>60); GFR (African American) 25 ML/MIN (>60); Glucose 98 mg/dl (74-100); Potassium 4.5 mmoL/L (3.5-5.1); Sodium 140 mmol/L (136-145); Total Protein,Serum 6.2 g/dl (6.3-8.2)
[2023-09-30 08:08] LABS: Magnesium 1.6 mg/dl (1.6-2.3)
[2023-09-30] MEDS: AZITHROMYCIN 500 MG in 0.9 % SODIUM CHLORIDE 250 ML 250 MG IV (08:59)
[2023-09-30] MEDS: MAGNESIUM OXIDE 400MG TABLET 400 MG PO (10:16)
--- NOTE | 2023-09-30 10:21 | EXP.PHA.PN ---
Subjective *Date: 09/30/23 *Time: 10:21 Medical Exam Vital signs and Labs for Last 24 Hours: Vital Signs Temp Pulse Resp BP Pulse Ox O2 Del Method O2 Flow Rate 09/30/23 08:45 Room Air 09/30/23 07:57 Nasal Cannula 2 09/30/23 07:56 Nasal Cannula 2 09/30/23 07:44 98.6 F 64 22 126/66 100 Nasal Cannula 2 09/30/23 07:00 Nasal Cannula 2 09/30/23 05:00 BiPAP 09/30/23 04:00 98.7 F 64 18 134/75 98 Nasal Cannula 09/30/23 03:00 BiPAP 09/30/23 01:00 BiPAP 09/30/23 00:44 09/29/23 23:00 BiPAP 09/29/23 21:38 09/29/23 21:00 Nasal Cannula 09/29/23 20:00 98.2 F 66 20 110/63 97 Nasal Cannula 3 09/29/23 20:00 Nasal Cannula 2 09/29/23 19:00 Nasal Cannula 4 09/29/23 17:06 Nasal Cannula 2 09/29/23 15:42 98.9 F 66 24 129/46 L 93 L Nasal Cannula 2 09/29/23 15:06 Nasal Cannula 2 09/29/23 13:00 Nasal Cannula 3 09/29/23 11:00 Nasal Cannula 3 FiO2 09/30/23 08:45 09/30/23 07:57 09/30/23 07:56 09/30/23 07:44 09/30/23 07:00 09/30/23 05:00 09/30/23 04:00 09/30/23 03:00 09/30/23 01:00 09/30/23 00:44 30 09/29/23 23:00 09/29/23 21:38 30 09/29/23 21:00 09/29/23 20:00 09/29/23 20:00 09/29/23 19:00 09/29/23 17:06 09/29/23 15:42 09/29/23 15:06 09/29/23 13:00 09/29/23 11:00 Intake and Output 09/29/23 09/30/23 09/30/23 23:59 07:59 15:59 Intake Total 0 / 1540 145 / 145 Output Total 200 / 1835 900 / 900 Balance -200 / -295 -755 / -755 Intake: Intake, Oral Amount 0 / 1540 120 / 120 Intake, Other Amount Output: Output, Urine Amount 200 / 1834 900 / 900 Other: Number of Unmeasured Voids 0 1 Number of Bowel Movements 1 2 Weight 118.643 kg Patient Weight 09/30/23 23:59 Weight 118.643 kg Laboratory Results - last 24 hr 09/29/23 20:16: POC Glucose 119 H 09/30/23 06:27: WBC 6.3, RBC 3.35 L, Hgb 8.3 L, Hct 25.8 L, MCV 77.1 L, MCH 24.7 L, MCHC 32.0, RDW 21.9 H, Plt Count 183, MPV 7.5, Neut % (Auto) 72.5, Lymph % (Auto) 19.0, [place] % (Auto) 6.2, Eos % (Auto) 2.0, Baso % (Auto) 0.4, Neut # (Auto) 4.6, Lymph # (Auto) 1.2, [place] # (Auto) 0.4, Eos # (Auto) 0.1, Baso # (Auto) 0.0, Sodium 140, Potassium 4.5, Chloride 110 H, Carbon Dioxide 27, Anion Gap 7.5, BUN 26 H D, Creatinine 2.30 H, Estimated Creat Clear 19, Estimated GFR 21 L, Est GFR ( Amer) 25 L, Glucose 98, Calcium 8.8, Magnesium 1.6, Total Bilirubin 0.3, AST 24 D, ALT 18, Alkaline Phosphatase 113, Total Protein 6.2 L, Albumin 3.2 L, Globulin 3.0, Albumin/Globulin Ratio 1.1 I & O for Labs for Last 24 Hours: Intake & Output 09/27/23 09/28/23 09/29/23 09/30/23 23:59 23:59 23:59 23:59 Intake Total 1340 / 3318 3082 / 3082 1420 / 1540 145 / 145 Output Total 1850 / 1850 2800 / 2800 1835 / 183 900 / 900 Balance -510 / 1468 282 / 282 -415 / -295 -755 / -755 Weight 111.2 kg 113.942 kg 109.905 kg 118.643 kg Microbiology Reports for the Last 24 Hours: Microbiology 09/26/23 23:10 Blood Blood Culture - Preliminary 09/26/23 21:50 Blood Blood Culture - Preliminary 09/26/23 22:51 Urine,Catheterized Urine Culture - Final The patient's infection will respond to the chosen ABx?: Yes (WHITE COUNT 6.3, AFEBRILE OVER 24 HR, BLOOD AND URINE CULTURE NO GROWTH) Is the patient receiving the right drug, dose, and route?: Yes Could a more targeted ABx be ordered?: No
--- NOTE | 2023-09-30 11:01 | EXP.DC.SUM ---
General Admission date:: 09/27/23 Discharge date: 09/30/23 HPI HPI HPI: 73 year old female presented to the [facility] ED via EMS from home for AMS, general debility, and weakness. PMHX of HTN, HLD, CAD, A-FIB, DM, COPD, and obesity. She was recently discharged from a fpc due to insurance issues and has been declining since. Her last admission was on 09/01/23 for concerns of bacteremia. Her ED workup revealed creatinine of 3.80, K of 5.3, and urine positive for nitrates and WBC's. The pt's abd CT revealed no hydronephrosis or obstructive process. She was given 1L of LR, lokelma, and rocpehin. The ED physician consulted the hospitalist team for further medical management. I admitted the pt to the medical floor. She will continue to receive antibiotic coverage and treatment for her REDD. Hospital Course Hospital Course Hospital Course: 73 year old female presented to the [facility] ED via EMS from home for AMS, general debility, and weakness. PMHX of HTN, HLD, CAD, A-FIB, DM, COPD, and obesity. She was recently discharged from a fpc due to insurance issues and has been declining since. Her last admission was on 09/01/23 for concerns of bacteremia. Her ED workup revealed creatinine of 3.80, K of 5.3, and urine positive for nitrates and WBC's. The pt's abd CT revealed no hydronephrosis or obstructive process. Concern for UTI vs respiratory etiology of her confusion/infection. Initiated on antibiotics. Showed slow improvement during admission with improvement in her kidney function. Working with therapy daily. Multiple discussions with family about therapy and rehab. Family adamant they want to take patient home. She is improved to being medically stable for discharge at this time. Discharge home with family. Will set up with home health. Problems addressed as follows: AMS, resolved REDD, slowly improving HYPERKALEMIA -Creatinine 3.8 on admission, baseline approximately 1-1.4. Creatinine plateaued at 2.3 and BUN of 26 by day of discharge. Recommend repeat CBC, CMP in 1 week with home health. Tolerating p.o. intake. Adjustments made to medications for nephrotoxins. Anticipate gradual improvement with good p.o. intake. Mentation slowly improving as well. Back to baseline mentation and is oriented to self and place. Potassium normalized to 4.5 by day of discharge. UTI versus pneumonia -UA positive for nitrates and WBC, single blood culture with gram-positive cocci, most likely contaminant. Urine culture negative is a grew less than 10,000 CFU's. Other blood cultures negative at 48 hours. Patient does have oxygen requirement and questionable findings on chest imaging. Patient treated with ceftriaxone and azithromycin during admission. Transition to Levaquin at discharge for ease of administration and to cover for total of 6 to 7 days. Recommend continuing her BiPAP at night. White cell count remained normal for over 72 hours prior to discharge home. Continue Trelegy inhaler daily along with DuoNebs at home as needed. DM -ssi insulin, fingersticks ACHS during admission. A1c well-controlled at 5.7. Recommend not treating with 1 at urgent blood is greater than 250, and then only 10 units of her 70/30 insulin that they have at home. Continue Trulicity 0.75 mg subcu weekly AFIB CHF HTN HLD HYPOTHYROIDISM -continue eliquis 5mg, lipitor 40mg, buspar 5mg, plavix 75mg, citalopram 40mg, levothyroxine 50 mcg, protonix 40mg, and mirlax. -TSH 1.72 and T4 7.1 Total time spent on discharge 39 minutes in counseling, discussion with family, documentation, chart review, and direct care with patient. Exam Data for Last 24 hours Vital signs and Labs for Last 24 Hours: Temp Pulse Resp BP Pulse Ox O2 Del Method O2 Flow Rate 98.6 F 64 22 126/66 100 Room Air 2 09/30/23 07:44 09/30/23 07:44 09/30/23 07:44 09/30/23 07:44 09/30/23 07:44 09/30/23 08:45 09/30/23 07:57 FiO2 30 09/30/23 00:44 Laboratory Results - last 24 hr 09/29/23 20:16: POC Glucose 119 H 09/30/23 06:27: WBC 6.3, RBC 3.35 L, Hgb 8.3 L, Hct 25.8 L, MCV 77.1 L, MCH 24.7 L, MCHC 32.0, RDW 21.9 H, Plt Count 183, MPV 7.5, Neut % (Auto) 72.5, Lymph % (Auto) 19.0, Tripp % (Auto) 6.2, Eos % (Auto) 2.0, Baso % (Auto) 0.4, Neut # (Auto) 4.6, Lymph # (Auto) 1.2, Tripp # (Auto) 0.4, Eos # (Auto) 0.1, Baso # (Auto) 0.0, Sodium 140, Potassium 4.5, Chloride 110 H, Carbon Dioxide 27, Anion Gap 7.5, BUN 26 H D, Creatinine 2.30 H, Estimated Creat Clear 19, Estimated GFR 21 L, Est GFR ( Amer) 25 L, Glucose 98, Calcium 8.8, Magnesium 1.6, Total Bilirubin 0.3, AST 24 D, ALT 18, Alkaline Phosphatase 113, Total Protein 6.2 L, Albumin 3.2 L, Globulin 3.0, Albumin/Globulin Ratio 1.1 I & O for Last 24 hours: Intake & Output 09/27/23 09/28/23 09/29/23 09/30/23 23:59 23:59 23:59 23:59 Intake Total 1340 / 3318 3082 / 3082 1420 / 1540 145 / 145 Output Total 1850 / 1850 2800 / 2800 1835 / 1835 900 / 900 Balance -510 / 1468 282 / 282 -415 / -295 -755 / -755 Weight 111.2 kg 113.942 kg 109.905 kg 118.643 kg Microbiology Reports for the Last 24 Hours: Microbiology 09/26/23 23:10 Blood Blood Culture - Preliminary 09/26/23 21:50 Blood Blood Culture - Preliminary Constitutional Constitutional: no acute distress, morbidly obese and chronically ill appearing *Routine HEENT Exam Head: Present normocephalic Eye: Present EOMI and PERRL ENT: Present mucous membranes moist Comments: cushingoid facies *Routine Neck Exam Neck: Present supple; Absent lymphadenopathy Routine Chest/Breast/Axilla Exam Comments: barrel shaped *Routine Respiratory Exam Respiratory: Present prolonged expiratory phase, rhonchi, distant breath sounds, diminished air movement and normal respiratory effort; Absent wheezes *Routine Cardiovascular Exam Cardiovascular: Present RRR *Routine Abdominal Exam Abdominal: Present soft and normoactive bowel sounds; Absent tenderness *Routine Rectal Exam Patient deferred: visual exam *Routine Exam Patient deferred: external exam *Routine Extremities Exam Extremities: Present edema (trace); Absent cyanosis or clubbing *Routine Skin Exam Skin: Present warm; Absent rash *Routine Neurological Exam Neurological: Present alert, oriented X3 and moving all extremities; Absent altered mental status Comments: oriented to self and place, not time or situation Routine Psychiatric Exam Psychiatric: Present anxious Results Data Completed and Pending Labs on day of discharge: Labs from last 24 hours 09/30/23 09/29/23 06:27 20:16 WBC 6.3 RBC 3.35 L Hgb 8.3 L Hct 25.8 L MCV 77.1 L MCH 24.7 L MCHC 32.0 RDW 21.9 H Plt Count 183 MPV 7.5 Neut % (Auto) 72.5 Lymph % (Auto) 19.0 Tripp % (Auto) 6.2 Eos % (Auto) 2.0 Baso % (Auto) 0.4 Neut # (Auto) 4.6 Lymph # (Auto) 1.2 Tripp # (Auto) 0.4 Eos # (Auto) 0.1 Baso # (Auto) 0.0 Sodium 140 Potassium 4.5 Chloride 110 H Carbon Dioxide 27 Anion Gap 7.5 BUN 26 H D Creatinine 2.30 H Estimated Creat Clear 19 Estimated GFR 21 L Est GFR ( Amer) 25 L Glucose 98 POC Glucose 119 H Calcium 8.8 Magnesium 1.6 Total Bilirubin 0.3 AST 24 D ALT 18 Alkaline Phosphatase 113 Total Protein 6.2 L Albumin 3.2 L Globulin 3.0 Albumin/Globulin Ratio 1.1 Preliminary micro results at discharge 09/26/23 23:10 Blood Culture - Preliminary Blood 09/26/23 21:50 Blood Culture - Preliminary Blood DS: Diagnosis Discharge Diagnosis (1) AMS (altered mental status): Status: Acute Code(s): R41.82 - Altered mental status, unspecified (2) Acute UTI: Status: Acute Code(s): N39.0 - Urinary tract infection, site not specified (3) Hyperkalemia: Status: Acute Code(s): E87.5 - Hyperkalemia (4) Atrial fibrillation: Status: Acute Code(s): I48.91 - Unspecified atrial fibrillation Qualifiers: Atrial fibrillation type: paroxysmal Qualified Code(s): I48.0 - Paroxysmal atrial fibrillation (5) CHF (congestive heart failure): Status: Acute Code(s): I50.9 - Heart failure, unspecified Qualifiers: Heart failure chronicity: acute on chronic Heart failure type: unspecified Qualified Code(s): I50.9 - Heart failure, unspecified (6) Diabetes mellitus: Status: Acute Code(s): E11.9 - Type 2 diabetes mellitus without complications Qualifiers: Diabetes mellitus complication status: with hyperglycemia 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: with long-term use Diabetes mellitus type: type 2 Qualified Code(s): E11.65 - Type 2 diabetes mellitus with hyperglycemia Problem details: type 2 non insulin dep (7) Hypertension: Status: Acute Code(s): I10 - Essential (primary) hypertension Qualifiers: Hypertension type: essential hypertension Qualified Code(s): I10 - Essential (primary) hypertension (8) Hyperlipidemia: Status: Acute Code(s): E78.5 - Hyperlipidemia, unspecified Qualifiers: Hyperlipidemia type: unspecified Qualified Code(s): E78.5 - Hyperlipidemia, unspecified (9) Hypothyroidism: Status: Acute Code(s): E03.9 - Hypothyroidism, unspecified Qualifiers: Hypothyroidism type: acquired Qualified Code(s): E03.9 - Hypothyroidism, unspecified Meds Home Medications and Allergies Home Medications Medication Instructions Recorded Confirmed Type albuterol 90 mcg/actuation aerosol 180 mcg inhalation QID 09/26/23 09/26/23 History inhaler apixaban 5 mg tablet (Eliquis) 5 mg PO BID 09/26/23 09/26/23 History ascorbic acid (vitamin C) 500 mg 500 mg PO DAILY 09/26/23 09/26/23 History tablet (Vitamin C) atorvastatin 40 mg tablet 40 mg PO HS 09/26/23 09/26/23 History bisoprolol fumarate 5 mg tablet 2.5 mg PO DAILY 09/26/23 09/26/23 History buspirone 5 mg tablet 5 mg PO DAILY 09/26/23 09/26/23 History citalopram 40 mg tablet 40 mg PO DAILY 09/26/23 09/26/23 History clopidogrel 75 mg tablet 75 mg PO DAILY 09/26/23 09/26/23 History dulaglutide 0.75 mg/0.5 mL 0.75 mg SQ WEEKLY 09/26/23 09/26/23 History subcutaneous pen injector (Trulicity) ferrous sulfate 325 mg (65 mg 325 mg PO DAILY 09/26/23 09/26/23 History iron) tablet (iron) fluticasone furoate 100 1 inh inhalation DAILY 09/26/23 09/26/23 History mcg-vilanterol 25 mcg/dose inhalation powder (Breo Ellipta) icosapent ethyl 1 gram capsule 2 g PO BID 09/26/23 09/26/23 History levothyroxine 50 mcg tablet 50 mcg PO DAILY 09/26/23 09/26/23 History metoclopramide HCl 5 mg tablet 5 mg PO BID 09/26/23 09/26/23 History multivitamin 1 tab PO DAILY 09/26/23 09/26/23 History omeprazole 20 mg capsule,delayed 20 mg PO DAILY 09/26/23 09/26/23 History release polyethylene glycol 3350 17 gram 17 g PO DAILY 09/26/23 09/26/23 History oral powder packet (Miralax) zinc 50 mg tablet 50 mg PO DAILY 09/26/23 09/26/23 History acetaminophen 500 mg tablet 500 mg PO Q6H PRN Pain (Scale 09/27/23 09/27/23 History Score 1-3) cholecalciferol (vitamin D3) 25 1,000 unit PO BID 09/27/23 09/27/23 History mcg (1,000 unit) capsule bumetanide 1 mg tablet 1 mg PO DAILY 30 days #0 tabs 09/30/23 09/26/23 Rx hydrocodone 5 mg-acetaminophen 325 1 tab PO BIDP PRN Pain 30 days #0 09/30/23 09/26/23 Rx mg tablet tabs levofloxacin 750 mg tablet 750 mg PO ONCE 1 day #1 tab 09/30/23 Rx New Prescriptions to Start Prescriptions: levofloxacin Ronnie Sethi Allergies Allergy/AdvReac Type Severity Reaction Status Date / Time Iodinated Contrast Media Allergy Intermediate Hives Verified 08/23/23 14:44 [Iodinated Contrast Media - IV Dye] celecoxib [From CELEBREX] Allergy Unknown SWELLING Verified 08/23/23 14:44 ibuprofen [IBUPROFEN] Allergy Unknown S-BLISTERING Verified 08/23/23 14:44 WELTS meloxicam [MELOXICAM] Allergy Unknown S-BLISTERING Verified 08/23/23 14:44 WELTS Penicillins [PENICILLINS] Allergy Unknown I-HIVES Verified 08/23/23 14:44 rofecoxib [From VIOXX] Allergy Unknown I-HIVES Verified 08/23/23 14:44 Discharge Plan Disposition Patient Disposition: Home Health Service Condition: Fair Discharge Order Discharge Orders: Discharge Order (Routine); Ordered 09/30/23 Ordered By: Ronnie Sethi Follow up Plan Follow up with: Hilary Bagley PA [Primary Care Provider] - Enter time for follow up (Please call for a follow up appt.. ) Jennie Vieyra MD [Physician] - Enter time for follow up (The office will call you with a follow up appt. ) Prescriptions/Medication Reconciliation: New levofloxacin 750 mg tablet 750 mg PO ONCE 1 Days Qty: 1 0RF Rx Instructions: dose to be given 09/30 Continued atorvastatin 40 mg tablet 40 mg PO HS Patient Comments: TAKE 1 TABLET 1 TIME EACH DAY AT BEDTIME buspirone 5 mg tablet 5 mg PO DAILY Patient Comments: TAKE 1 TABLET 1 TIME EACH DAY FOR ANXIETY citalopram 40 mg tablet 40 mg PO DAILY Patient Comments: TAKE 1 TABLET 1 TIME EACH DAY FOR DEPRESSION clopidogrel 75 mg tablet 75 mg PO DAILY Patient Comments: TAKE 1 TABLET 1 TIME EACH DAY FOR HEART DISEASE bisoprolol fumarate 5 mg tablet 2.5 mg PO DAILY Patient Comments: TAKE 1 TABLET 1 TIME EACH DAY metoclopramide HCl 5 mg tablet 5 mg PO BID Patient Comments: TAKE 1 TABLET 2 TIMES EACH DAY FOR STOMACH levothyroxine 50 mcg tablet 50 mcg PO DAILY Patient Comments: TAKE 1 TABLET 1 TIME EACH DAY FOR THYROID omeprazole 20 mg capsule,delayed release(DR/EC) 20 mg PO DAILY Patient Comments: TAKE 1 CAPSULE 1 TIME EACH DAY FOR REFLUX Eliquis 5 mg tablet 5 mg PO BID Patient Comments: TAKE 1 TABLET 2 TIMES EACH DAY fluticasone furoate-vilanterol [Breo Ellipta] 100-25 mcg/dose blister with device 1 inh INHALATION DAILY Patient Comments: INHALE 1 DOSE 1 TIME EACH DAY Trulicity 0.75 mg/0.5 mL pen injector 0.75 mg SQ WEEKLY Patient Comments: INJECT THE CONTENTS OF 1 SYRINGE UNDER THE SKIN 1 TIME EACH WEEK multivitamin Tablet 1 tab PO DAILY polyethylene glycol 3350 [Miralax] 17 gram Powder In Packet 17 g PO DAILY ascorbic acid (vitamin C) [Vitamin C] 500 mg Tablet 500 mg PO DAILY ferrous sulfate [iron] 325 mg (65 mg iron) Tablet 325 mg PO DAILY zinc 50 mg Tablet 50 mg PO DAILY albuterol 90 mcg/actuation Aerosol 180 mcg INHALATION QID icosapent ethyl 1 gram Capsule 2 g PO BID acetaminophen 500 mg Tablet 500 mg PO Q6H PRN (Reason: Pain (Scale Score 1-3)) cholecalciferol (vitamin D3) 25 mcg (1,000 unit) Capsule 1,000 unit PO BID Changed hydrocodone-acetaminophen 5-325 mg tablet 1 tab PO BIDP PRN (Reason: Pain) 30 Days Qty: 0 0RF Patient Comments: TAKE 1 TABLET 4 TIMES EACH DAY NEEDED FOR PAIN bumetanide 1 mg tablet 1 mg PO DAILY 30 Days Qty: 0 0RF Patient Comments: TAKE 1 TABLET AT 8 AM AND TAKE 1 TABLET AT 2 PM Discontinued gabapentin 800 mg tablet 800 mg PO TID Patient Comments: TAKE 1 TABLET 3 TIMES EACH DAY baclofen 10 mg tablet 10 mg PO BID Patient Comments: TAKE 1 TABLET 2 TIMES EACH DAY FOR MUSCLE PAIN insulin asp prt-insulin aspart [Novolog Mix 70-30FlexPen U-100] 100 unit/mL (70-30) insulin pen 60 unit SQ BID Patient Comments: INJECT 60 UNITS UNDER THE SKIN 2 TIMES EACH DAY Levemir FlexPen 100 unit/mL (3 mL) insulin pen 60 unit SQ BID Patient Comments: INJECT 96 UNITS UNDER THE SKIN 2 TIMES EACH DAY irbesartan 75 mg tablet 37.5 mg PO DAILY Patient Comments: TAKE 1/2 TABLET 1 TIME EACH DAY Problem Reconciliation Problems Reviewed?: Yes Patient Discharge Instructions ACTIVITY: Continue current activity DIET: continue same diet Patient Instructions: DI for Urinary Tract Infection (UTI), DI for Acute Kidney Injury Providers Primary Care Provider: Hilary Bagley Admit Provider: Ronnie Sethi Attending Provider: Ronnie Sethi
[2023-09-30 11:56] LABS: POC Glucose,Bedside 107 (70-110)
[2023-10-01 06:18] LABS: POC Glucose,Bedside 108 (70-110)
[2023-10-01 06:18] LABS: POC Glucose,Bedside 121 (70-110)
[2023-10-01 06:18] LABS: POC Glucose,Bedside 117 (70-110)
[2023-10-01 06:18] LABS: POC Glucose,Bedside 166 (70-110)
[2023-10-01 06:18] LABS: POC Glucose,Bedside 157 (70-110)
--- NOTE | 2023-10-02 15:33 | CARE MANAGER ---
Contacted patient's daughter in law. She states the patient is currently at PCP office and her blood pressure is low. They are calling Dr. Martínez for possible medication adjustments. The patient has also been dizzy. They deny any other questions. CHRISTIANE Sosa
== END 2023-09-30 14:38 | disposition home health service (06) | DRG 682 ==
LOC: ER 23:29 → 2ND 09-27 01:08
PROVIDERS: Internal Medicine Pulmonary Disease; Nurse Practitioner Critical Care Medicine; Admitting Provider Internal Medicine Adolescent Medicine; Emergency Provider Emergency Medicine; PCP Physician Assistant; Visit Provider Internal Medicine Adolescent Medicine
DX: N17.9 Acute kidney failure, unspecified (principal); J18.9 Pneumonia, unspecified organism; J96.21 Acute and chronic respiratory failure with hypoxia; N39.0 Urinary tract infection, site not specified; Z68.41 Body mass index [BMI] 40.0-44.9, adult; I10 Essential (primary) hypertension; E78.5 Hyperlipidemia, unspecified; I25.10 Atherosclerotic heart disease of native coronary artery without angina pectoris; I48.91 Unspecified atrial fibrillation; G89.29 Other chronic pain; I27.20 Pulmonary hypertension, unspecified; E66.01 Morbid (severe) obesity due to excess calories; G47.33 Obstructive sleep apnea (adult) (pediatric); E11.40 Type 2 diabetes mellitus with diabetic neuropathy, unspecified; Z87.891 Personal history of nicotine dependence; E87.5 Hyperkalemia; I48.0 Paroxysmal atrial fibrillation
CPT/HCPCS: 36415; 70450; 71045; 74176; 80048; 80053; 81001; 82803; 82962; 83036; 83605; 83735; 83880; 84436; 84443; 84484; 85025; 87040; 87086; 87636; 93005; 94640; 94660; 94761; 97110; 97163; 97166; 97530; 97535; 99285; J0456; J0696; J1756

== ENCOUNTER 2023-10-16 18:54 | Outpatient (CLI) | payer MEDICARE, MEDICAID, SELFPAY ==
[2023-10-16 18:58] LABS: Basophils % 0.4 % (0.1-2.0); Eosinophils # 0.2 K/mm3 (0.0-0.4); Eosinophils % 1.5 % (0.1-12.0); Hematocrit 29.2 % (37.0-47.0); Hemoglobin 9.7 g/dL (12.2-16.2); Lymphocytes # 1.6 K/mm3 (0.7-4.5); Lymphocytes % 16.3 % (10-50); Mean Corpuscular Hemoglobin 26.6 pg (27.0-31.2); Mean Corpuscular Volume 80.7 fl (81-99); Monocytes # 0.4 K/mm3 (0.1-1.0); Monocytes % 3.5 % (1.7-9.3); Neutrophils # 7.9 K/mm3 (1.8-7.8); Neutrophils % 78.3 % (37.0-80.0); Platelet Count 318 K/mm3 (142-424); Red Blood Count 3.62 M/mm3 (4.20-5.40); Red Cell Distribution Width 22.6 % (11.5-17.5); White Blood Count 10.1 K/mm3 (4.8-10.8)
[2023-10-16 19:26] LABS: Chloride 108 mmol/L (98-107); Potassium 3.8 mmoL/L (3.5-5.1); Sodium 138 mmol/L (136-145)
[2023-10-16 19:29] LABS: Alanine Aminotransferase 21 U/L (12-78); Albumin Level 3.2 g/dl (3.5-5.0); Albumin/Globulin Ratio 1.2 (1.1-1.8); Alkaline Phosphatase 148 U/L (38-126); Anion Gap 8.8 mEq/L (5-15); Aspartate Amino Transferase 24 U/L (14-36); Bilirubin,Total 0.4 mg/dl (0.2-1.3); Blood Urea Nitrogen 15 mg/dl (7-17); Calcium 9.2 mg/dl (8.4-10.2); Carbon Dioxide 25 mmol/L (22.0-30.0); Estimated Glomerular Filt Rate 54 ml/min (>60); GFR (African American) 66 ML/MIN (>60); Globulin 2.6 g/dL (1.3-3.2); Glucose 151 mg/dl (74-100); Total Protein,Serum 5.8 g/dl (6.3-8.2)
== END 2023-10-16 23:59 ==
PROVIDERS: PCP Physician Assistant; Visit Provider Physician Assistant
DX: I10 Essential (primary) hypertension (principal); R53.83 Other fatigue; Z87.891 Personal history of nicotine dependence
CPT/HCPCS: 80053; 85025

== ENCOUNTER 2023-10-30 14:22 | Outpatient (CLI) | payer MEDICARE, MEDICAID, SELFPAY ==
[2023-10-30 15:54] LABS: Chloride 109 mmol/L (98-107); Potassium 3.9 mmoL/L (3.5-5.1); Sodium 138 mmol/L (136-145)
[2023-10-30 15:57] LABS: Alanine Aminotransferase 25 U/L (12-78); Albumin Level 2.9 g/dl (3.5-5.0); Albumin/Globulin Ratio 1.1 (1.1-1.8); Alkaline Phosphatase 130 U/L (38-126); Anion Gap 7.9 mEq/L (5-15); Aspartate Amino Transferase 30 U/L (14-36); Bilirubin,Total 0.2 mg/dl (0.2-1.3); Blood Urea Nitrogen 20 mg/dl (7-17); Carbon Dioxide 25 mmol/L (22.0-30.0); Estimated Glomerular Filt Rate 61 ml/min (>60); GFR (African American) 74 ML/MIN (>60); Globulin 2.7 g/dL (1.3-3.2); Glucose 176 mg/dl (74-100); Total Protein,Serum 5.6 g/dl (6.3-8.2)
== END 2023-10-30 23:59 ==
LOC: LAB 14:23
PROVIDERS: Family Medicine; PCP Physician Assistant; Visit Provider Nurse Practitioner
DX: I10 Essential (primary) hypertension (principal)
CPT/HCPCS: 36415; 80053

== ENCOUNTER 2023-11-06 11:35 | Outpatient (CLI) | payer MEDICARE, MEDICAID, SELFPAY | END 2023-11-06 23:59 | LOC: LAB.DROPOF 11-07 11:35 | PROVIDERS: PCP Physician Assistant; Visit Provider Physician Assistant | DX: R39.15 Urgency of urination (principal); B95.2 Enterococcus as the cause of diseases classified elsewhere | CPT/HCPCS: 87086 ==

== ENCOUNTER 2023-12-11 13:32 | Outpatient (CLI) | payer MEDICARE, MEDICAID, SELFPAY ==
[2023-12-11 19:35] LABS: Basophils % 0.3 % (0.1-2.0); Eosinophils # 0.1 K/mm3 (0.0-0.4); Eosinophils % 1.7 % (0.1-12.0); Hematocrit 33.6 % (37.0-47.0); Hemoglobin 10.7 g/dL (12.2-16.2); Lymphocytes # 1.4 K/mm3 (0.7-4.5); Lymphocytes % 17.3 % (10-50); Mean Corpuscular HGB Conc 31.9 g/dL (31.8-35.4); Mean Corpuscular Hemoglobin 27.7 pg (27.0-31.2); Mean Corpuscular Volume 86.7 fl (81-99); Mean Platelet Volume 8.1 fl (7.4-10.4); Monocytes # 0.3 K/mm3 (0.1-1.0); Neutrophils # 6.2 K/mm3 (1.8-7.8); Neutrophils % 76.6 % (37.0-80.0); Platelet Count 258 K/mm3 (142-424); Red Blood Count 3.87 M/mm3 (4.20-5.40); Red Cell Distribution Width 18.3 % (11.5-17.5)
[2023-12-11 21:13] LABS: Alanine Aminotransferase 23 U/L (12-78); Albumin Level 3.1 g/dl (3.5-5.0); Albumin/Globulin Ratio 1.1 (1.1-1.8); Alkaline Phosphatase 108 U/L (38-126); Aspartate Amino Transferase 26 U/L (14-36); Bilirubin,Total 0.4 mg/dl (0.2-1.3); Blood Urea Nitrogen 17 mg/dl (7-17); Carbon Dioxide 32 mmol/L (22.0-30.0); Chloride 101 mmol/L (98-107); Estimated Glomerular Filt Rate 70 ml/min (>60); GFR (African American) 85 ML/MIN (>60); Globulin 2.7 g/dL (1.3-3.2); Glucose 165 mg/dl (74-100); Sodium 138 mmol/L (136-145); Total Protein,Serum 5.8 g/dl (6.3-8.2)
== END 2023-12-11 23:59 | disposition home or self-care (01) ==
LOC: LAB.DROPOF 12-12 13:33
PROVIDERS: PCP Physician Assistant; Visit Provider Physician Assistant
DX: I10 Essential (primary) hypertension (principal); R53.83 Other fatigue; F17.210 Nicotine dependence, cigarettes, uncomplicated
CPT/HCPCS: 80053; 85025

== ENCOUNTER 2023-12-12 19:30 | Emergency (ER) | payer MEDICARE, MEDICAID, SELFPAY ==
[2023-12-12 19:32] VITALS: BP 188/61; PULSE 64; RESP 22; TEMP 36.9; O2SAT 96; BMI 42.4
--- NOTE | 2023-12-12 19:45 | ED_ITS ---
<Statement entered by Yisel Benito DO - 12/12/23 21:53> I was consulted by the MOSHE, and we discussed the complexity of the problems being addressed. I approved the treatment and management plan for this patient's care in the emergency department, thus performing a substantive portion of the medical decision making. Yisel Benito DO Discharge Plan Disposition Patient Disposition: Home, Self-Care Condition: Good Prescriptions Prescriptions: No Action ipratropium-albuterol 0.5 mg-3 mg(2.5 mg base)/3 mL solution for nebulization 3 ml inhalation QID PRN (Reason: shortness of breath or wheezing) 90 Days Qty: 270 3RF albuterol sulfate 90 mcg/actuation HFA aerosol inhaler 2 inh inhalation QID PRN (Reason: shortness of breath or wheezing) 90 Days Qty: 8.5 2RF fluticasone furoate-vilanterol [Breo Ellipta] 200-25 mcg/dose blister with device 1 inh inhalation DAILY 90 Days Qty: 90 2RF hydrocodone-acetaminophen 5-325 mg tablet 1 tab PO BID PRN (Reason: pain) Qty: 60 0RF hydrocodone-acetaminophen 5-325 mg tablet 1 tab PO BIDP PRN (Reason: Pain) 30 Days Qty: 60 0RF Patient Comments: TAKE 1 TABLET 4 TIMES EACH DAY NEEDED FOR PAIN ondansetron HCl 8 mg tablet 8 mg PO Q12H PRN (Reason: nausea and vomiting) Qty: 30 0RF Eliquis 5 mg tablet 5 mg PO BID Qty: 90 1RF Patient Comments: TAKE 1 TABLET 2 TIMES EACH DAY atorvastatin 40 mg tablet 40 mg PO HS Qty: 90 1RF Patient Comments: TAKE 1 TABLET 1 TIME EACH DAY AT BEDTIME (DME) blood-glucose meter Kit See Rx Instructions .ROUTE .MEDSUPPLY Qty: 1 0RF Rx Instructions: As directed or bid Whatever Insurance will pay for with test strips and lancets metoclopramide HCl 5 mg tablet See Rx Instructions .ROUTE .COMPLEX Qty: 180 0RF Dose Instruction: TAKE 1 TABLET 2 TIMES EACH DAY FOR STOMACH Rx Instructions: TAKE 1 TABLET 2 TIMES EACH DAY FOR STOMACH Trulicity 0.75 mg/0.5 mL pen injector See Rx Instructions .ROUTE .COMPLEX Qty: 2 2RF Dose Instruction: INJECT THE CONTENTS OF 1 SYRINGE UNDER THE SKIN 1 TIME EACH WEEK Rx Instructions: INJECT THE CONTENTS OF 1 SYRINGE UNDER THE SKIN 1 TIME EACH WEEK bumetanide 1 mg tablet See Rx Instructions .ROUTE .COMPLEX Qty: 60 2RF Hold Instructions: Doctor's Order Dose Instruction: TAKE 1 TABLET AT 8 AM AND TAKE 1 TABLET AT 2 PM Rx Instructions: TAKE 1 TABLET AT 8 AM AND TAKE 1 TABLET AT 2 PM linezolid [Zyvox] 600 mg tablet 600 mg PO BID 10 Days Qty: 20 0RF meclizine 25 mg tablet 25 mg PO BID PRN (Reason: dizziness or vertigo) 90 Days Qty: 180 0RF albuterol sulfate [ProAir HFA] 90 mcg/actuation HFA aerosol inhaler 2 inh inhalation QID PRN (Reason: shortness of breath or wheezing) 90 Days Qty: 8.5 3RF gabapentin 300 mg capsule 300 mg PO BID Qty: 60 2RF buspirone 5 mg tablet 5 mg PO DAILY Patient Comments: TAKE 1 TABLET 1 TIME EACH DAY FOR ANXIETY citalopram 40 mg tablet 40 mg PO DAILY Patient Comments: TAKE 1 TABLET 1 TIME EACH DAY FOR DEPRESSION clopidogrel 75 mg tablet 75 mg PO DAILY Patient Comments: TAKE 1 TABLET 1 TIME EACH DAY FOR HEART DISEASE bisoprolol fumarate 5 mg tablet 2.5 mg PO DAILY Hold Instructions: Home Medication placed on hold at Doctor's office Patient Comments: TAKE 1 TABLET 1 TIME EACH DAY levothyroxine 50 mcg tablet 50 mcg PO DAILY Patient Comments: TAKE 1 TABLET 1 TIME EACH DAY FOR THYROID omeprazole 20 mg capsule,delayed release(DR/EC) 20 mg PO DAILY Patient Comments: TAKE 1 CAPSULE 1 TIME EACH DAY FOR REFLUX fluticasone furoate-vilanterol [Breo Ellipta] 100-25 mcg/dose blister with device 1 inh INHALATION DAILY Patient Comments: INHALE 1 DOSE 1 TIME EACH DAY multivitamin Tablet 1 tab PO DAILY polyethylene glycol 3350 [Miralax] 17 gram Powder In Packet 17 g PO DAILY ascorbic acid (vitamin C) [Vitamin C] 500 mg Tablet 500 mg PO DAILY ferrous sulfate [iron] 325 mg (65 mg iron) Tablet 325 mg PO DAILY zinc 50 mg Tablet 50 mg PO DAILY icosapent ethyl 1 gram Capsule 2 g PO BID acetaminophen 500 mg Tablet 500 mg PO Q6H PRN (Reason: Pain (Scale Score 1-3)) cholecalciferol (vitamin D3) 25 mcg (1,000 unit) Capsule 1,000 unit PO BID Referrals Follow up/Referrals: Hilary Bagley PA [Primary Care Provider] - See instructions Ashlyn Bautista DPM [Staff Physician] - See instructions Activity Restrictions/Add. Instructions Additional Instructions/Restrictions: Weightbearing as tolerated however you are at significantly increased fall risk. I have referred you to podiatry for ongoing management of your fracture. Follow-up with your PCP for your urinary symptoms if they continue or worsen. Clinical Impressions Clinical Impression: Dysuria Fracture of toe of left foot Qualifiers: Encounter type: initial encounter Toe: great toe Fracture type: closed Phalanx: proximal Discharge ED Provider: Yisel Benito General Adult HPI General Chief complaint: Extremity Injury, Lower Stated complaint: LT great toe pain, painful urination Time Seen by Provider: 12/12/23 19:45 History of Present Illness HPI narrative: Patient presents for evaluation of left hallux pain. Patient and caregiver noted that her left toe has turned colors but patient herself denies a known injury. It is unknown when this occurred. 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 This topic was brought up with her PCP and she was referred to urology for same. Related Data Home Medications Medication Instructions Recorded Confirmed ascorbic acid (vitamin C) 500 mg 500 mg PO DAILY 09/26/23 12/11/23 tablet (Vitamin C) bisoprolol fumarate 5 mg tablet 2.5 mg PO DAILY 09/26/23 12/11/23 buspirone 5 mg tablet 5 mg PO DAILY 09/26/23 12/11/23 citalopram 40 mg tablet 40 mg PO DAILY 09/26/23 12/11/23 clopidogrel 75 mg tablet 75 mg PO DAILY 09/26/23 12/11/23 ferrous sulfate 325 mg (65 mg 325 mg PO DAILY 09/26/23 12/11/23 iron) tablet (iron) fluticasone furoate 100 1 inh inhalation DAILY 09/26/23 12/11/23 mcg-vilanterol 25 mcg/dose inhalation powder (Breo Ellipta) icosapent ethyl 1 gram capsule 2 g PO BID 09/26/23 12/11/23 levothyroxine 50 mcg tablet 50 mcg PO DAILY 09/26/23 12/11/23 multivitamin 1 tab PO DAILY 09/26/23 12/11/23 omeprazole 20 mg capsule,delayed 20 mg PO DAILY 09/26/23 12/11/23 release polyethylene glycol 3350 17 gram 17 g PO DAILY 09/26/23 12/11/23 oral powder packet (Miralax) zinc 50 mg tablet 50 mg PO DAILY 09/26/23 12/11/23 acetaminophen 500 mg tablet 500 mg PO Q6H PRN Pain (Scale 09/27/23 12/11/23 Score 1-3) cholecalciferol (vitamin D3) 25 1,000 unit PO BID 09/27/23 12/11/23 mcg (1,000 unit) capsule Previous Rx's Medication Instructions Recorded ondansetron HCl 8 mg tablet 8 mg PO Q12H PRN nausea and 10/03/23 vomiting #30 tabs apixaban 5 mg tablet (Eliquis) 5 mg PO BID #90 tabs 10/04/23 atorvastatin 40 mg tablet 40 mg PO HS #90 tabs 10/04/23 albuterol sulfate 90 mcg/actuation 2 inh inhalation QID PRN shortness 10/16/23 aerosol inhaler of breath or wheezing 90 days #8.5 grams blood-glucose meter #1 ea 10/16/23 fluticasone furoate 200 1 inh inhalation DAILY 90 days #90 10/16/23 mcg-vilanterol 25 mcg/dose ea inhalation powder (Breo Ellipta) ipratropium 0.5 mg-albuterol 3 mg 3 ml inhalation QID PRN shortness 10/16/23 (2.5 mg base)/3 mL nebulization of breath or wheezing 90 days #270 soln mL metoclopramide HCl 5 mg tablet See Rx Instructions .Route 10/19/23 .COMPLEX #180 tabs dulaglutide 0.75 mg/0.5 mL See Rx Instructions .Route 10/29/23 subcutaneous pen injector .COMPLEX #2 mL (Trulicity) bumetanide 1 mg tablet See Rx Instructions .Route 11/13/23 .COMPLEX #60 tabs linezolid 600 mg tablet (Zyvox) 600 mg PO BID 10 days #20 tabs 11/13/23 meclizine 25 mg tablet 25 mg PO BID PRN dizziness or 11/20/23 vertigo 90 days #180 tabs albuterol sulfate 90 mcg/actuation 2 inh inhalation QID PRN shortness 11/29/23 aerosol inhaler (ProAir HFA) of breath or wheezing 90 days #8.5 grams hydrocodone 5 mg-acetaminophen 325 1 tab PO BID PRN pain #60 tabs 12/11/23 mg tablet hydrocodone 5 mg-acetaminophen 325 1 tab PO BIDP PRN Pain 30 days #60 12/11/23 mg tablet tabs gabapentin 300 mg capsule 300 mg PO BID #60 caps 12/12/23 Allergies Allergy/AdvReac Type Severity Reaction Status Date / Time Iodinated Contrast Media Allergy Intermediate Hives Verified 12/11/23 12:59 [Iodinated Contrast Media - IV Dye] celecoxib [From CELEBREX] Allergy Unknown SWELLING Verified 12/11/23 12:59 ibuprofen [IBUPROFEN] Allergy Unknown S-BLISTERING Verified 12/11/23 12:59 WELTS meloxicam [MELOXICAM] Allergy Unknown S-BLISTERING Verified 12/11/23 12:59 WELTS Penicillins [PENICILLINS] Allergy Unknown I-HIVES Verified 12/11/23 12:59 rofecoxib [From VIOXX] Allergy Unknown I-HIVES [facility]11[facility]23 [facility] Dis[facility]: The information contained in this section may have been updated after the patient was seen, as this information can be updated by other users. Medical History Lumbar disc disease with radiculopathy Pneumonia Acute respiratory failure with hypoxia and hypercarbia Acute and chronic respiratory failure with hypoxia Iron deficiency anemia Hyponatremia Physical deconditioning Bacteremia Adult failure to thrive CHF exacerbation Intermittent confusion Urinary incontinence Physical deconditioning Acute hip pain Low back pain Aortic stenosis Contrast media allergy Anemia Non-STEMI (non-ST elevated myocardial infarction) Acute on chronic diastolic heart failure Asthma exacerbation in COPD Restrictive lung disease Dyspnea on exertion Typical angina Atrial fibrillation Hypoxemia ERICKSON (obstructive sleep apnea) Nocturnal hypoxemia Oxygen supplementation ERICKSON (obstructive sleep apnea) Severe ERICKSON, chronic hypoxic respiratory failure, pulmonary hypertension, afib, morbidly obese, oxygen supplementation dependent without hypercapnia in June 2022. Compliant on BiPAP with O2. Increased drowsiness lately in the setting of difficulty with oxygen concentrator. Abnormal PFT COPD (chronic obstructive pulmonary disease) Active follow-up with pulmonology Dyspnea on exertion Restrictive lung disease Stopped smoking with greater than 30 pack year history Pulmonary hypertension Chronic hypoxemic respiratory failure Active follow-up with pulmonology History of 2019 novel coronavirus disease (COVID-19) Sleep disorder breathing Chronic pain Atrial fibrillation Diabetic neuropathy associated with type 2 diabetes mellitus Biventricular CHF (congestive heart failure) Severe pulmonary hypertension Pulmonary HTN Atypical angina Dyspnea Lumbar disc disease Atypical chest pain Sciatica associated with disorder of lumbar spine Lumbar radiculopathy, chronic Proliferative diabetic retinopathy Lumbar radiculopathy Pneumonia Morbid obesity with BMI of 40.0-44.9, adult Weakness Diarrhea Bilateral swelling of feet IDDM (insulin dependent diabetes mellitus) Lumbar radiculopathy, chronic Diabetic gastroparesis associated with type 2 diabetes mellitus Vertigo CHF (congestive heart failure) Hypothyroidism GERD (gastroesophageal reflux disease) Coronary artery disease Vitamin D deficiency Anxiety Depression Hyperlipidemia Hypertension Diabetes mellitus type 2 non insulin dep Surgical History History of lumpectomy History of eye surgery History of cataract surgery History of heart valve replacement Hx of CABG Family History Other Cancer Diabetes Heart attack Hyperlipidemia Hypertension Stroke Thyroid disorder Social History Smoking Status: Current every day smoker tobacco type: cigarettes packs per day: 1 second hand exposure: No alcohol intake: never substance use type: denies use current occupational status: unemployed Travel in the last 8 weeks: None household members: children housing: house current occupational exposures/hazards: No caffeine: Yes ROS Obtained: Yes Systems reviewed as appropriate & no additional complaints except as documented Physical Exam General General appearance: alert and in no apparent distress Respiratory Respiratory exam: Present normal lung sounds bilaterally Cardiovascular Cardiovascular exam: Present regular rate and normal rhythm Extremities Exam Extremities exam: Present full ROM and tenderness; Absent normal inspection (Patient has ecchymosis from the interphalangeal joint proximally to underneath the nail of the left hallux. Patient has significantly elongated and untrimmed toenail of same. No active bleeding currently. It is significantly tender to palpation but no obvious deformity noted.) Neurological Exam Neurological exam: Present alert and oriented X3 Medical Decision Making Medical Records Medical records reviewed: Yes I reviewed the patient's medical records. Sam Inquiry Pt receiving controlled substance: No Vital Signs: 12/12/23 19:32 12/12/23 20:05 12/12/23 21:09 Temperature 98.4 F 98.4 F Temperature Source Oral Oral Pulse Rate 68 61 Pulse Rate [Left] 64 Respiratory Rate 22 21 Blood Pressure 188/61 H 183/70 H Blood Pressure [Right Arm] 188/61 H Blood Pressure Mean [Right Arm] 103 02 Sat by Pulse Oximetry 96 91 L Oxygen Delivery Method Nasal Cannula Nasal Cannula Oxygen Flow Rate (LPM) 2.5 Orders (Tests/Meds): ED MEDICATIONS Discontinued Medications Generic Name Dose Route Start Last Admin Trade Name Ike PRN Reason Stop Dose Admin Acetaminophen 1,000 mg 12/12/23 19:47 12/12/23 20:06 Acetaminophen 500mg Tab PO 12/12/23 19:48 1,000 mg ONCE ONE Administration ORDERS Category Date Time Status Foot XR left 2 views [XR foot LT 2V] Stat Exams 12/12/23 19:47 Completed Medical Decision Narrative: In summary patient is a 73-year-old female who presents to the emergency department for evaluation of left hallux pain and complaint of dysuria. Patient is hemodynamically stable upon arrival, afebrile. Physical exam is remarkable for what appears to be a traumatic injury to the left hallux that shows significant superior ecchymosis that does not spread in a dependent fashion along with tenderness to palpation without obvious deformity. Differential diagnosis includes partial nail avulsion versus fracture. Initial workup will be conducted with plain film x-rays. Initial interventions include Tylenol. Initial workup reviewed by me and my informal interpretation of her plain film x-ray shows a distal toe fracture. Upon repeat evaluation and improvement in h er pain. Given this patient placed in a hard soled shoe and referred to podiatry for ongoing management. Regarding her urinary symptoms patient has been evaluated by her PCP for this exact problem yesterday (12/11/2023) and was referred to urology. I will refer the patient back to her PCP if her symptoms continue for further evaluation. Critical Care Critical Care Time Critical Care Time: No
--- NOTE | 2023-12-12 19:47 | XR_ITS ---
PROCEDURE INFORMATION: Exam: XR Left Foot Exam date and time: 12/12/2023 8:06 PM Age: 73 years old Clinical indication: Pain; Toes; Left; Additional info: Trauma TECHNIQUE: Imaging protocol: Radiologic exam of the left foot. Views: 1 or 2 views. COMPARISON: CR XR FOOT LT MIN 3V 08/31/2019 8:36 PM FINDINGS: Bones/joints: Oblique fracture within the distal phalanx 1st digit with extension to the interphalangeal joint. Soft tissues: Normal. IMPRESSION: Oblique fracture within the distal phalanx 1st digit with extension to the interphalangeal joint.
[2023-12-12 20:05] VITALS: BP 188/61; PULSE 68; O2SAT 91
[2023-12-12] MEDS: ACETAMINOPHEN 500MG TAB 1000 MG PO (20:06)
[2023-12-12 21:09] VITALS: BP 183/70; PULSE 61; RESP 21; TEMP 36.9; O2SAT 97
== END 2023-12-12 21:16 | disposition home or self-care (01) ==
PROVIDERS: Emergency Provider Emergency Medicine; PCP Physician Assistant
DX: S92.422A Displaced fracture of distal phalanx of left great toe, initial encounter for closed fracture (principal); R30.0 Dysuria; X58.XXXA Exposure to other specified factors, initial encounter
CPT/HCPCS: 73620; 99283

== ENCOUNTER 2024-01-04 09:57 | Outpatient (CLI) | payer MEDICARE, MEDICAID, SELFPAY ==
--- NOTE | 2024-01-04 10:01 | XR_ITS ---
FINAL REPORT CLINICAL HISTORY: left great toe fracture COMPARISON: 12/12/2023 FINDINGS: LEFT FOOT: Three views of the left foot were obtained. There is mild degenerative change. There is a comminuted subacute fracture of the first distal phalanx. Bony alignment is stable. There has been callus formation since prior exam. There is no soft tissue abnormality. IMPRESSION: First distal phalanx fracture with interval callus formation. Reviewed, Interpreted and Dictated by Armando Price III, MD Transcribed by Lizet Alvarez Authenticated and [facility]
== END 2024-01-04 23:59 | disposition home or self-care (01) ==
LOC: RAD 09:58
PROVIDERS: PCP Physician Assistant; Visit Provider Podiatrist
DX: M79.672 Pain in left foot; S92.912A Unspecified fracture of left toe(s), initial encounter for closed fracture
CPT/HCPCS: 73630

== ENCOUNTER 2024-01-08 14:42 | Outpatient (CLI) | payer MEDICARE, MEDICAID, SELFPAY ==
[2024-01-08 15:28] LABS: Blood Urea Nitrogen 31 mg/dl (7-17); Estimated Glomerular Filt Rate 54 ml/min (>60); GFR (African American) 66 ML/MIN (>60)
[2024-01-08 16:12] LABS: Appearance,Urine SL CLOUDY (Clear); Bilirubin,Urine Negative (Negative); Blood, Urine 1+ (Negative); Color,Urine YELLOW (Yellow); Glucose,Urine (UA) Negative (Negative); Ketones,Urine Negative (Negative); Leukocyte Esterase,Urine 2+ (Negative); Nitrate,Urine Negative (Negative); PH,Urine 5.5 (5.0-8.5); Protein,Urine 1+ (Negative); Urobilinogen,Urine 0.2 EU/dl (0.2)
[2024-01-08 16:56] LABS: Bacteria,Urine Trace /lpf; Microscopic, Urine URINE MICROSCOPIC (MICROSCOPIC); WBC,Urine 20-50 #/hpf (0-3)
[2024-01-08 16:57] LABS: RBC,Urine Occasional #/hpf (0-3); Squamous Epithelial Cell,Urine Occasional #/hpf (0-5); Yeast,Urine 1+ /lpf
== END 2024-01-08 23:59 | disposition home or self-care (01) ==
LOC: LAB 14:44
PROVIDERS: PCP Physician Assistant; Visit Provider Urology
DX: R31.9 Hematuria, unspecified (principal); N39.0 Urinary tract infection, site not specified; B96.20 Unspecified Escherichia coli [E. coli] as the cause of diseases classified elsewhere
CPT/HCPCS: 36415; 81001; 82565; 84520; 87086; 87088; 87186

== ENCOUNTER 2024-01-15 06:53 | Outpatient (CLI) | payer MEDICARE, MEDICAID, SELFPAY ==
--- NOTE | 2024-01-15 06:56 | US_ITS ---
FINAL REPORT CLINICAL HISTORY: Hematuria COMPARISON: None FINDINGS: ULTRASOUND BLADDER WITH POST VOID RESIDUAL Bladder volumes were estimated based on 3 dimensional measurements, pre- and postvoid. Prevoid bladder volume: 256 mls Postvoid bladder volume: 61 mls IMPRESSION: Postvoid residual is abnormally elevated with incomplete bladder emptying. Reviewed, Interpreted and Dictated by Andrei Luna MD Transcribed by Lizet Alvarez Authenticated and [facility]
--- NOTE | 2024-01-15 06:56 | CT_ITS ---
FINAL REPORT TECHNIQUE: Axial images through the abdomen and pelvis were performed without contrast.This study was performed with techniques to keep radiation doses as low as reasonably achievable, (ALARA). Individualized dose reduction techniques using automated exposure control or adjustment of mA and/or kV according to the patient's size were employed. CLINICAL HISTORY: Hematuria COMPARISON: 09/27/2023 FINDINGS: ABDOMEN: There is a small left pleural effusion. Lungs are otherwise clear. The heart size is normal. Patient is status postcholecystectomy. Limited images of the liver are unremarkable. The spleen is normal. No adrenal mass is identified. The aorta is normal in caliber. There is no significant free fluid or adenopathy. There is no nephrolithiasis. There is no hydronephrosis. There is no evidence of bowel obstruction. PELVIS: The appendix is not identified. There are no secondary signs of appendicitis. There is mild urinary bladder wall thickening which is nonspecific given poor distention. Patient is status post hysterectomy. There is no significant free fluid or adenopathy. IMPRESSION: No hydronephrosis or nephrolithiasis. Nonspecific urinary bladder wall thickening with poor distention of the urinary bladder. Reviewed, Interpreted and Dictated by Andrei Luna MD Transcribed by Marielena Aguero Authenticated and . [facility]
== END 2024-01-15 23:59 | disposition home or self-care (01) ==
LOC: RAD 06:53
PROVIDERS: PCP Physician Assistant; Visit Provider Urology
DX: R31.9 Hematuria, unspecified (principal)
CPT/HCPCS: 74176; 76857

== ENCOUNTER 2024-01-17 12:40 | Outpatient (CLI) | payer MEDICARE, MEDICAID, SELFPAY ==
[2024-01-17 13:35] VITALS: PULSE 50; PULSE 57
[2024-01-17] MEDS: ALBUTEROL 0.083% 2.5 MG/3 ML NEB IH (13:35)
== END 2024-01-17 23:59 | disposition home or self-care (01) ==
LOC: RT 12:41
PROVIDERS: PCP Physician Assistant; Visit Provider Internal Medicine Pulmonary Disease
DX: R06.02 Shortness of breath (principal); J44.9 Chronic obstructive pulmonary disease, unspecified
CPT/HCPCS: 94060; 94640; J7613

== ENCOUNTER 2024-01-29 17:11 | Outpatient (CLI) | payer MEDICARE, SELFPAY | END 2024-01-29 23:59 | disposition home or self-care (01) | LOC: LAB.DROPOF 17:11 | PROVIDERS: PCP Physician Assistant; Visit Provider Physician Assistant | DX: R32 Unspecified urinary incontinence (principal) | CPT/HCPCS: 87086 ==

== ENCOUNTER 2024-02-19 14:54 | Outpatient (CLI) | payer MEDICARE, SELFPAY ==
--- NOTE | 2024-02-19 15:15 | XR_ITS ---
FINAL REPORT TECHNIQUE: Chest PA & Lateral CLINICAL HISTORY: Shortness of breath COMPARISON: 09/26/2023 FINDINGS: 2 views of the chest were performed. The heart size is mildly enlarged. Sternotomy wires are present. There is no acute cardiopulmonary process. There are no pleural effusions. There is no pneumothorax. The bony thorax appears intact. IMPRESSION: No acute cardiopulmonary process. Reviewed, Interpreted and Dictated by Bertram Travis MD Transcribed by Lizet Alvarez Authenticated and [facility]
[2024-02-19 16:45] LABS: Anion Gap 10.1 mEq/L (5-15); Blood Urea Nitrogen 29 mg/dl (7-17); Calcium 9.7 mg/dl (8.4-10.2); Carbon Dioxide 29 mmol/L (22.0-30.0); Chloride 105 mmol/L (98-107); Estimated Glomerular Filt Rate 70 ml/min (>60); GFR (African American) 85 ML/MIN (>60); Glucose 204 mg/dl (74-100); Potassium 4.1 mmoL/L (3.5-5.1); Sodium 140 mmol/L (136-145)
[2024-02-19 16:54] LABS: NT Pro Brain Natriuretic Pep. 255 pg/mL (0-125)
== END 2024-02-19 23:59 | disposition home or self-care (01) ==
LOC: LAB 14:55
PROVIDERS: PCP Physician Assistant; Visit Provider Physician Assistant
DX: R06.02 Shortness of breath (principal); I50.9 Heart failure, unspecified; K21.9 Gastro-esophageal reflux disease without esophagitis; I95.9 Hypotension, unspecified
CPT/HCPCS: 36415; 71046; 80048; 83880

== ENCOUNTER 2024-03-08 09:51 | Day surgery (SDC) | payer MEDICARE, MEDICAID, SELFPAY ==
[2024-03-06 17:14] VITALS: BMI 39.2
[2024-03-08 10:05] VITALS: BP 121/99; PULSE 65; RESP 20; TEMP 36.5; O2SAT 91
[2024-03-08 10:20] LABS: POC Glucose,Bedside 159 (70-110)
--- NOTE | 2024-03-08 10:27 | P.PCN_ITS ---
[facility] Procedure Note Date: 03/08/24 Time: 10:27 Procedure Note:: Chart review: Patient has trouble with nocturnal enuresis. She has sleep apnea and uses a CPAP machine. She is also troubled with recurrent urinary tract infections. She is currently on Macrobid and. She is diabetic. She has mental confusion. When she has a urinary tract infection the confusion seems to get worse. She tried Myrbetriq but that did not seem to help. I am fearful of using Ditropan as it is also associated with dementia. Preop diagnosis: nocturnal enuresis/UTI postop diagnosis: Nocturnal enuresis/UTI/urethritis/atrophic vaginitis Operative note: Patient was brought to the cystoscopy room. She is prepped and draped in the usual fashion. The patient voids intravaginally. She has atrophic vaginitis. The patient has moderate urethritis through the flexible cystoscope. The bladder itself has debris suggesting she does not emptied the bladder. She found the procedure uncomfortable. The best I can see there are no stones, tumor, hemorrhage or infection. I did set up a urine culture and sensitivity drawn from the bladder thru the cystoscopy.
[2024-03-08] MEDS: LIDOCAINE 2% UROJET 10ML 10 ML UR (10:34)
[2024-03-08 10:55] VITALS: BP 147/77; PULSE 59; RESP 18; TEMP 37; O2SAT 95
[2024-03-08 14:07] LABS: Microscopic,Cath URINE MICROSCOPIC (MICROSCOPIC)
[2024-03-08 14:51] LABS: Appearance,Urine/Cath SL CLOUDY (Clear); Bilirubin,Cath Negative (Negative); Blood, Urine/Cath 1+ (Negative); Color,Urine/Cath YELLOW (Yellow); Glucose,Urine/Cath (UA) Negative (Negative); Ketones,Urine/Cath Negative (Negative); Leukocyte Esterase,Cath 1+ (Negative); Nitrate,Cath Negative (Negative); Protein,Urine/Cath 2+ (Negative); Specific Gravity, Urine/Cath 1.015 (1.005-1.030); Urobilinogen,Cath 0.2 EU/dl (0.2)
[2024-03-08 15:03] LABS: Bacteria,Urine/Cath TRACE /lpf; RBC,Urine/Cath Occasional # /hpf (0-3); WBC,Urine/Cath 20-50 #/hpf (0-3)
== END 2024-03-08 11:03 | disposition home or self-care (01) ==
LOC: OUTP 09:52
PROVIDERS: PCP Physician Assistant; Visit Provider Urology
PROC: 0TJB8ZZ Inspection of Bladder, Via Natural or Artificial Opening Endoscopic (ICD-10-PCS; CPT 52000; principal; 2024-03-08 10:45)
DX: N39.0 Urinary tract infection, site not specified (principal); N39.44 Nocturnal enuresis; N95.2 Postmenopausal atrophic vaginitis; E11.8 Type 2 diabetes mellitus with unspecified complications
CPT/HCPCS: 52000; 81001; 82962; 87086

== ENCOUNTER 2024-03-14 12:46 | Outpatient (CLI) | payer MEDICARE, MEDICAID, SELFPAY ==
--- NOTE | 2024-03-14 12:54 | XR_ITS ---
FINAL REPORT CLINICAL HISTORY: left hallux fracture COMPARISON: 12/12/2023 FINDINGS: LEFT FOOT There is a healing fracture of the proximal aspect of the first distal phalanx, with pronounced hypertrophic change involving the fracture line. No new fracture is identified. The soft tissues are unremarkable. IMPRESSION: Healing fracture of the proximal aspect of the first distal phalanx, with pronounced hypertrophic change as described. Reviewed, Interpreted and Dictated by Bertram Travis MD Transcribed by Marie Sawant Authenticated and [facility]
== END 2024-03-14 23:59 | disposition home or self-care (01) ==
LOC: RAD 12:49
PROVIDERS: PCP Physician Assistant; Visit Provider Nurse Practitioner
DX: S92.425A Nondisplaced fracture of distal phalanx of left great toe, initial encounter for closed fracture (principal); M79.89 Other specified soft tissue disorders
CPT/HCPCS: 73630

== ENCOUNTER 2024-03-28 14:25 | Observation (INO) | payer MEDICARE, MEDICAID, SELFPAY ==
[2024-03-28] VITALS (8 sets, daily range): BP systolic 114–158; BP diastolic 48–73; PULSE 68–74; RESP 12–22; TEMP 36.9–38.8; O2SAT 91–96; BMI 39.6; BMI 38.7
--- NOTE | 2024-03-28 | XR_ITS ---
FINAL REPORT CLINICAL HISTORY: cough, SOB COMPARISON: 09/26/2023 FINDINGS: SINGLE-VIEW CHEST There is cardiomegaly with pulmonary vascular congestion. The mediastinum is normal. There are worsening left base opacities consistent with atelectasis or pneumonia. There is no pneumothorax. IMPRESSION: Worsening left base atelectasis versus pneumonia. Cardiomegaly with pulmonary vascular congestion. Reviewed, Interpreted and Dictated by Armando Price III, MD Transcribed by Latoya Quiroga Authenticated and [facility]
--- NOTE | 2024-03-28 14:49 | PC.NURSE ---
RT notified of VBG
[2024-03-28 14:50] LABS: Lactate Venous 1.7 mmol/L (0.4-2.0); VBG Base Excess 2.8 mmol/L (-2.4-2.3); VBG HCO3 28.2 mmol/L (23-30); VBG Oxygen Saturation 76.9 % (50-70); VBG PH 7.36 mmol/L (7.31-7.41); VBG PO2 41.1 mmol/L (28-40); VBG Total CO2 29.8 mmol/L (23-27)
[2024-03-28 14:53] LABS: VBG PCO2 50.9 mmol/L (35-51)
[2024-03-28 14:54] LABS: Basophils % 0.3 % (0.1-2.0); Eosinophils % 0.2 % (0.1-12.0); Hematocrit 39.4 % (37.0-47.0); Hemoglobin 12.7 g/dL (12.2-16.2); Lymphocytes # 0.7 K/mm3 (0.7-4.5); Lymphocytes % 6.1 % (10-50); Mean Corpuscular HGB Conc 32.2 g/dL (31.8-35.4); Mean Corpuscular Hemoglobin 28.4 pg (27.0-31.2); Mean Corpuscular Volume 88.3 fl (81-99); Mean Platelet Volume 7.7 fl (7.4-10.4); Monocytes # 0.5 K/mm3 (0.1-1.0); Monocytes % 4.4 % (1.7-9.3); Neutrophils # 9.8 K/mm3 (1.8-7.8); Neutrophils % 89.1 % (37.0-80.0); Platelet Count 217 K/mm3 (142-424); Red Blood Count 4.46 M/mm3 (4.20-5.40)
[2024-03-28 14:59] LABS: MANUAL DIFFERENTIAL MANUAL DIFFERENTIAL (MANUAL DIFF)
[2024-03-28 15:03] LABS: Albumin Level 3.8 g/dl (3.5-5.0); Chloride 102 mmol/L (98-107); Potassium 3.9 mmoL/L (3.5-5.1); Sodium 136 mmol/L (136-145)
[2024-03-28 15:05] LABS: Blood Urea Nitrogen 22 mg/dl (7-17); Creatinine Clearance Estimated 84 mL/min (50-200); Estimated Glomerular Filt Rate 61 ml/min (>60); GFR (African American) 74 ML/MIN (>60)
[2024-03-28 15:06] LABS: Alanine Aminotransferase 26 U/L (12-78); Albumin/Globulin Ratio 1.1 (1.1-1.8); Alkaline Phosphatase 99 U/L (38-126); Anion Gap 5.9 mEq/L (5-15); Aspartate Amino Transferase 28 U/L (14-36); Bilirubin,Total 0.6 mg/dl (0.2-1.3); Calcium 9.8 mg/dl (8.4-10.2); Carbon Dioxide 32 mmol/L (22.0-30.0); Globulin 3.4 g/dL (1.3-3.2); Glucose 142 mg/dl (74-100); Total Protein,Serum 7.2 g/dl (6.3-8.2)
[2024-03-28 15:09] LABS: Lactic Acid 1.3 mmol/L (0.7-2.1)
--- NOTE | 2024-03-28 15:26 | CT_ITS ---
FINAL REPORT CLINICAL HISTORY: ams limited hx COMPARISON: 09/26/2023 FINDINGS: Axial images of the head were obtained without contrast. Coronal reformatted images were also obtained. This study was performed with techniques to keep radiation doses as low as reasonably achievable (ALARA). Individualized dose reduction techniques using automated exposure control or adjustment of mA and/or kV according to the patient's size were employed. There is generalized age-appropriate atrophy. Periventricular low-attenuation areas are seen consistent with moderate chronic ischemic changes. Mild ventriculomegaly is stable from previous. There is no evidence of intracranial hemorrhage or mass. There is no evidence of acute infarct. There is no evidence of shift of the midline structures. No skull abnormality is seen on the bone window images. IMPRESSION: Atrophy and moderate periventricular chronic ischemic changes. Stable ventriculomegaly. Reviewed, Interpreted and Dictated by Armando Price III, MD Transcribed by Latoya Quiroga Authenticated and [facility]
--- NOTE | 2024-03-28 15:29 | ED_ITS ---
Discharge Plan Disposition Patient Disposition: Admitted Condition: Fair Chief Complaint: Nausea/Vomiting/Diarrhea Prescriptions Prescriptions: No Action ipratropium-albuterol 0.5 mg-3 mg(2.5 mg base)/3 mL solution for nebulization 3 ml inhalation QID PRN (Reason: shortness of breath or wheezing) 90 Days Qty: 270 3RF fluticasone furoate-vilanterol [Breo Ellipta] 200-25 mcg/dose blister with device 1 inh inhalation DAILY 90 Days Qty: 90 2RF bumetanide 1 mg tablet 0.5 mg PO DAILY Qty: 30 2RF hydrocodone-acetaminophen 5-325 mg tablet 1 tab PO BID PRN (Reason: pain) Qty: 60 0RF gabapentin 400 mg capsule 400 mg PO BID Qty: 60 1RF cefdinir 300 mg capsule 300 mg PO BID Qty: 20 0RF albuterol sulfate 90 mcg/actuation HFA aerosol inhaler 2 inh inhalation QID PRN (Reason: shortness of breath or wheezing) 90 Days Qty: 8.5 3RF ondansetron HCl 8 mg tablet 8 mg PO Q12H PRN (Reason: nausea and vomiting) Qty: 30 0RF atorvastatin 40 mg tablet 40 mg PO HS Qty: 90 1RF Patient Comments: TAKE 1 TABLET 1 TIME EACH DAY AT BEDTIME (DME) blood-glucose meter Kit See Rx Instructions .ROUTE .MEDSUPPLY Qty: 1 0RF Rx Instructions: As directed or bid Whatever Insurance will pay for with test strips and lancets Eliquis 5 mg tablet See Rx Instructions .ROUTE .COMPLEX Qty: 90 3RF Dose Instruction: TAKE 1 TABLET 2 TIMES EACH DAY Rx Instructions: TAKE 1 TABLET 2 TIMES EACH DAY metoclopramide HCl 5 mg tablet See Rx Instructions .ROUTE .COMPLEX Qty: 180 0RF Dose Instruction: TAKE 1 TABLET 2 TIMES EACH DAY FOR STOMACH Rx Instructions: TAKE 1 TABLET 2 TIMES EACH DAY FOR STOMACH Trulicity 0.75 mg/0.5 mL pen injector See Rx Instructions .ROUTE .COMPLEX Qty: 2 2RF Dose Instruction: INJECT THE CONTENTS OF 1 SYRINGE UNDER THE SKIN 1 TIME EACH WEEK Rx Instructions: INJECT THE CONTENTS OF 1 SYRINGE UNDER THE SKIN 1 TIME EACH WEEK hydrocodone-acetaminophen 10-325 mg tablet 0.5 tab PO BID Qty: 30 0RF meclizine 25 mg tablet See Rx Instructions .ROUTE .COMPLEX Qty: 180 2RF Dose Instruction: TAKE 1 TABLET 2 TIMES EACH DAY NEEDED FOR DIZZINESS OR VERTIGO Rx Instructions: TAKE 1 TABLET 2 TIMES EACH DAY NEEDED FOR DIZZINESS OR VERTIGO nitrofurantoin macrocrystal [Macrodantin] 100 mg capsule 100 mg PO HS 30 Days Qty: 30 0RF Rx Instructions: must administer with a meal/food cranberry 500 mg Capsule 500 mg PO BID Rx Instructions: administer with meals buspirone 5 mg tablet 5 mg PO DAILY Patient Comments: TAKE 1 TABLET 1 TIME EACH DAY FOR ANXIETY citalopram 40 mg tablet 40 mg PO DAILY Patient Comments: TAKE 1 TABLET 1 TIME EACH DAY FOR DEPRESSION clopidogrel 75 mg tablet 75 mg PO DAILY Patient Comments: TAKE 1 TABLET 1 TIME EACH DAY FOR HEART DISEASE bisoprolol fumarate 5 mg tablet 2.5 mg PO DAILY Patient Comments: TAKE 1 TABLET 1 TIME EACH DAY levothyroxine 50 mcg tablet 50 mcg PO DAILY Patient Comments: TAKE 1 TABLET 1 TIME EACH DAY FOR THYROID omeprazole 20 mg capsule,delayed release(DR/EC) 20 mg PO DAILY Patient Comments: TAKE 1 CAPSULE 1 TIME EACH DAY FOR REFLUX multivitamin Tablet 1 tab PO DAILY polyethylene glycol 3350 [Miralax] 17 gram Powder In Packet 17 g PO DAILY ascorbic acid (vitamin C) [Vitamin C] 500 mg Tablet 500 mg PO DAILY ferrous sulfate [iron] 325 mg (65 mg iron) Tablet 325 mg PO DAILY zinc 50 mg Tablet 50 mg PO DAILY icosapent ethyl 1 gram Capsule 2 g PO BID acetaminophen 500 mg Tablet 500 mg PO Q6H PRN (Reason: Pain (Scale Score 1-3)) cholecalciferol (vitamin D3) 25 mcg (1,000 unit) Capsule 1,000 unit PO BID Referrals Follow up/Referrals: Provider,Referral, MD [Primary Care Provider] - See instructions Clinical Impressions Clinical Impression: Acute UTI, CHF (congestive heart failure) Instructions Patient Instructions: DI for Diarrhea and Traveler's Diarrhea -- Adult, DI for Diarrhea and Traveler's Diarrhea -- Child, DI for Nausea -- Adult, DI for Nausea -- Child Print Language Print Language: Somali Discharge ED Provider: Jason Lucas General Adult HPI General Chief complaint: Nausea/Vomiting/Diarrhea Stated complaint: vomiting/weakness Time Seen by Provider: 03/28/24 15:10 Mode of Arrival: EMS Source of Information: Patient Limitations: No Limitations Description of Symptoms (Recalled from ER Triage Doc. by RN): pt reports feeling nauseated. pt had 1 episode of vomitting this am. pt denies pain or urinary symptoms. pt presents with 2+ anasarca. pt is currently on her home 2.5 LNC at 96%. pt also has a cough and is febrile at 102F orally. last normal bm was today. History of Present Illness HPI narrative: 73-year-old female with past medical history significant for CHF, NSTEMI, COPD, atrial fibrillation, ERICKSON, GERD, HTN, HLD, presents today with family for evaluation concerning altered mental status. Son states that patient was normal and speaking this morning around 8 AM however later on around 1 PM she would not talk to him. She has been talking since that time. She has had 1 episode of emesis today. Daughter at bedside states that this is exactly how patient asked when she has a UTI with most recent UTI being this year in September. Patient is talkative and cooperative on history and denies any chest pain, fevers, chills, abdominal pain. She does report shortness of breath and dysuria. No further complaints at this time Related Data Home Medications ?Medication ?Instructions ?Recorded ?Confirmed ascorbic acid (vitamin C) 500 mg 500 mg PO DAILY 09/26/23 03/14/24 tablet (Vitamin C) bisoprolol fumarate 5 mg tablet 2.5 mg PO DAILY 09/26/23 03/14/24 buspirone 5 mg tablet 5 mg PO DAILY 09/26/23 03/14/24 citalopram 40 mg tablet 40 mg PO DAILY 09/26/23 03/14/24 clopidogrel 75 mg tablet 75 mg PO DAILY 09/26/23 03/14/24 ferrous sulfate 325 mg (65 mg 325 mg PO DAILY 09/26/23 03/14/24 iron) tablet (iron) icosapent ethyl 1 gram capsule 2 g PO BID 09/26/23 03/14/24 levothyroxine 50 mcg tablet 50 mcg PO DAILY 09/26/23 03/14/24 multivitamin 1 tab PO DAILY 09/26/23 03/14/24 omeprazole 20 mg capsule,delayed 20 mg PO DAILY 09/26/23 03/14/24 release polyethylene glycol 3350 17 gram 17 g PO DAILY 09/26/23 03/14/24 oral powder packet (Miralax) zinc 50 mg tablet 50 mg PO DAILY 09/26/23 03/14/24 acetaminophen 500 mg tablet 500 mg PO Q6H PRN Pain (Scale 09/27/23 03/14/24 Score 1-3) cholecalciferol (vitamin D3) 25 1,000 unit PO BID 09/27/23 03/14/24 mcg (1,000 unit) capsule cranberry 500 mg capsule 500 mg PO BID 03/08/24 03/14/24 Previous Rx's ?Medication ?Instructions ?Recorded ondansetron HCl 8 mg tablet 8 mg PO Q12H PRN nausea and 10/03/23 vomiting #30 tabs atorvastatin 40 mg tablet 40 mg PO HS #90 tabs 10/04/23 blood-glucose meter #1 ea 10/16/23 fluticasone furoate 200 1 inh inhalation DAILY 90 days #90 10/16/23 mcg-vilanterol 25 mcg/dose ea inhalation powder (Breo Ellipta) ipratropium 0.5 mg-albuterol 3 mg 3 ml inhalation QID PRN shortness 10/16/23 (2.5 mg base)/3 mL nebulization of breath or wheezing 90 days #270 soln mL hydrocodone 5 mg-acetaminophen 325 1 tab PO BID PRN pain #60 tabs 12/11/23 mg tablet apixaban 5 mg tablet (Eliquis) See Rx Instructions .Route 01/03/24 .COMPLEX #90 tabs dulaglutide 0.75 mg/0.5 mL See Rx Instructions .Route 01/15/24 subcutaneous pen injector .COMPLEX #2 mL (Trulicity) metoclopramide HCl 5 mg tablet See Rx Instructions .Route 01/15/24 .COMPLEX #180 tabs albuterol sulfate 90 mcg/actuation 2 inh inhalation QID PRN shortness 01/29/24 aerosol inhaler of breath or wheezing 90 days #8.5 grams cefdinir 300 mg capsule 300 mg PO BID #20 caps 01/29/24 gabapentin 400 mg capsule 400 mg PO BID #60 caps 01/29/24 bumetanide 1 mg tablet 0.5 mg (1/2 x 1 mg) PO DAILY #30 02/19/24 tabs hydrocodone 10 mg-acetaminophen 0.5 tab PO BID #30 tabs 02/28/24 325 mg tablet meclizine 25 mg tablet See Rx Instructions .Route 03/11/24 .COMPLEX #180 tabs nitrofurantoin macrocrystal 100 mg 100 mg PO HS 30 days #30 caps 03/11/24 capsule (Macrodantin) Allergies Allergy/AdvReac Type Severity Reaction Status Date / Time Iodinated Contrast Media Allergy Intermediate Hives Verified 03/14/24 14:28 [Iodinated Contrast Media - IV Dye] celecoxib [From CELEBREX] Allergy Unknown SWELLING Verified 03/14/24 14:28 ibuprofen [IBUPROFEN] Allergy Unknown S-BLISTERING Verified 03/14/24 14:28 WELTS meloxicam [MELOXICAM] Allergy Unknown S-BLISTERING Verified 03/14/24 14:28 WELTS Penicillins [PENICILLINS] Allergy Unknown I-HIVES Verified 03/14/24 14:28 rofecoxib [From VIOXX] Allergy Unknown I-HIVES Verified 03/14/24 14:28 [facility] Disclaimer: The information contained in this section may have been updated after the patient was seen, as this information can be updated by other users. Medical History Dyspnea Lumbar disc disease with radiculopathy Pneumonia Acute respiratory failure with hypoxia and hypercarbia Acute and chronic respiratory failure with hypoxia Iron deficiency anemia Hyponatremia Physical deconditioning Bacteremia Adult failure to thrive CHF exacerbation Intermittent confusion Urinary incontinence Physical deconditioning Acute hip pain Low back pain Aortic stenosis Contrast media allergy Anemia Non-STEMI (non-ST elevated myocardial infarction) Acute on chronic diastolic heart failure Asthma exacerbation in COPD Restrictive lung disease Dyspnea on exertion Typical angina Atrial fibrillation Hypoxemia ERICKSON (obstructive sleep apnea) Nocturnal hypoxemia Oxygen supplementation ERICKSON (obstructive sleep apnea) Severe ERICKSON, chronic hypoxic respiratory failure, pulmonary hypertension, afib, morbidly obese, oxygen supplementation dependent without hypercapnia in June 2022. Compliant on BiPAP with O2. Increased drowsiness lately in the setting of difficulty with oxygen concentrator. Abnormal PFT COPD (chronic obstructive pulmonary disease) Active follow-up with pulmonology Dyspnea on exertion Restrictive lung disease Stopped smoking with greater than 30 pack year history Pulmonary hypertension Chronic hypoxemic respiratory failure Active follow-up with pulmonology History of 2018 novel coronavirus disease (COVID-19) Sleep disorder breathing Chronic pain Atrial fibrillation Diabetic neuropathy associated with type 2 diabetes mellitus Biventricular CHF (congestive heart failure) Severe pulmonary hypertension Pulmonary HTN Atypical angina Lumbar disc disease Atypical chest pain Sciatica associated with disorder of lumbar spine Lumbar radiculopathy, chronic Proliferative diabetic retinopathy Lumbar radiculopathy Pneumonia Morbid obesity with BMI of 40.0-44.9, adult Weakness Diarrhea Bilateral swelling of feet IDDM (insulin dependent diabetes mellitus) Lumbar radiculopathy, chronic Diabetic gastroparesis associated with type 2 diabetes mellitus Vertigo CHF (congestive heart failure) Hypothyroidism GERD (gastroesophageal reflux disease) Coronary artery disease Vitamin D deficiency Anxiety Depression Hyperlipidemia Hypertension Diabetes mellitus type 2 non insulin dep Surgical History History of lumpectomy History of eye surgery History of cataract surgery History of heart valve replacement Hx of CABG Family History Other Cancer Diabetes Heart attack Hyperlipidemia Hypertension Stroke Thyroid disorder Social History Smoking Status: Never smoker second hand exposure: No alcohol intake: never substance use type: denies use current occupational status: unemployed Travel in the last 8 weeks: None household members: children housing: house current occupational exposures/hazards: No caffeine: Yes ROS Obtained: Yes All systems reviewed & no additional complaints except as documented Physical Exam General General appearance: alert, in no apparent distress and obese Head Head exam: atraumatic and normocephalic Eye Eye exam: Present normal appearance, PERRL and EOMI ENT ENT exam: Present normal oropharynx and mucous membranes moist Neck Neck exam: Present full ROM; Absent meningismus Respiratory Respiratory exam: Absent respiratory distress, wheezes, stridor or accessory muscle use Cardiovascular Cardiovascular exam: Present normal rhythm Abdominal Exam Abdominal exam: Present soft; Absent distention, tenderness, guarding, rebound or rigidity Extremities Exam Extremities exam: Present normal inspection, full ROM and edema (Bilateral lower extremity edema, nonpitting); Absent tenderness Neurological Exam Neurological exam: Present alert, oriented X3 and CN II-XII intact; Absent motor sensory deficit Psychiatric Psychiatric exam: Present normal affect and normal mood Skin Skin exam: Present warm and dry Medical Decision Making Medical Records Medical records reviewed: Yes I reviewed the patient's medical records. Sam Inquiry Pt receiving controlled substance: No Sam was queried for this patient: No Vital Signs: 03/28/24 14:45 03/28/24 15:25 03/28/24 15:31 Temperature 102 F H Temperature Source Oral Pulse Rate 71 74 Pulse Rate [Left] 71 Respiratory Rate 14 22 18 Blood Pressure 158/62 H 151/62 H Blood Pressure [Right Arm] 116/48 L Blood Pressure Mean [Right Arm] 70 Blood Pressure Source [Right Arm] Automatic Cuff Blood Pressure Position [Right Arm] Sitting 02 Sat by Pulse Oximetry 96 91 L 93 L Oxygen Delivery Method Nasal Cannula Room Air Room Air Oxygen Flow Rate (LPM) 2.5 Lab Data Lab Results 03/28/24 14:42: WBC 11.0 H, RBC 4.46, Hgb 12.7, Hct 39.4, MCV 88.3, MCH 28.4, MCHC 32.2, RDW 16.0, Plt Count 217, MPV 7.7, Neut % (Auto) 89.1 H, Lymph % (Auto) 6.1 L, [place] % (Auto) 4.4, Eos % (Auto) 0.2, Baso % (Auto) 0.3, Neut # (Auto) 9.8 H, Lymph # (Auto) 0.7, [place] # (Auto) 0.5, Eos # (Auto) 0.0, Baso # (Auto) 0.0, Total Counted 100, Neutrophils % (Manual) 85 H, Lymphocytes % (Manual) 11, Monocytes % (Manual) 3, Eosinophils % (Manual) 1, Platelet Estimate Normal, RBC Morphology Normal, Sodium 136, Potassium 3.9, Chloride 102, Carbon Dioxide 32 H, Anion Gap 5.9, BUN 22 H, Creatinine 0.90, Estimated Creat Clear 84, Estimated GFR 61, Est GFR ( Amer) 74, Glucose 142 H, Lactate 1.3, Calcium 9.8, Total Bilirubin 0.6, AST 28, ALT 26, Alkaline Phosphatase 99, Troponin I 0.01, NT-Pro-B Natriuret Pep 716 H, Total Protein 7.2, Albumin 3.8, G lobulin 3.4 H, Albumin/Globulin Ratio 1.1 03/28/24 14:48: VBG pH 7.36, VBG pCO2 50.9, VBG pO2 41.1 H, VBG HCO3 28.2, VBG Total CO2 29.8 H, VBG O2 Saturation 76.9 H, VBG Base Excess 2.8 H, VBG Lactic Acid 1.7 03/28/24 15:36: Urine Color Yellow, Urine Appearance Cloudy, Urine pH 5.5, Ur Specific Flushing 1.025, Urine Protein 2+ A, Urine Glucose (UA) Negative, Urine Ketones Negative, Urine Blood 2+ A, Urine Nitrate Negative, Urine Bilirubin Negative, Urine Urobilinogen 0.2, Ur Leukocyte Esterase 3+ A 03/28/24 14:42 03/28/24 14:42 Orders (Tests/Meds): ED MEDICATIONS Generic Name Dose Route Start Last Admin Trade Name Freq PRN Reason Stop Dose Admin Ceftriaxone Sodium 1 gm/ 50 mls @ 100 mls/hr 03/28/24 16:19 Sodium Chloride IV 03/28/24 16:48 ONCE ONE Discontinued Medications Generic Name Dose Route Start Last Admin Trade Name Freq PRN Reason Stop Dose Admin Bumetanide 1 mg 03/28/24 16:18 Bumetanide 1mg/4ml Vial IV 03/28/24 16:19 ONCE ONE ORDERS Category Date Time Status CT head/brain wo con Stat Cat Scan 03/28/24 15:26 Taken CXR --portable [XR chest portable] Stat Exams 03/28/24 Taken BNP [NT Pro Brain Natriuretic Pep.] Stat Lab 03/28/24 14:42 Completed Complete Blood Count Auto Diff Stat Lab 03/28/24 14:42 Completed Comprehensive Metabolic Panel Stat Lab 03/28/24 14:42 Completed Lactic Acid Stat Lab 03/28/24 14:42 Completed Trop I [Troponin I] Stat Lab 03/28/24 14:42 Completed Troponin I Q3H Lab 03/28/24 18:30 Ordered Troponin I Q3H Lab 03/28/24 21:30 Ordered UA [Urinalysis and Microscopic] Stat Lab 03/28/24 15:36 Results Blood Culture Stat Micro 03/28/24 15:04 Received Urine Culture Stat Micro 03/28/24 15:36 Received Venous Blood Gas Stat RT 03/28/24 14:48 Completed HEART Score History (anamnesis): Slightly suspicious ECG: Normal Age: >65 years Risk factors: Atherosclerosis history Troponin: </= normal limit HEART Score: 4 Medical Decision Narrative: 73-year-old female with past medical history significant for CHF, NSTEMI, COPD, atrial fibrillation, ERICKSON, GERD, HTN, HLD, presents today with family for evaluation concerning altered mental status. Son states that patient was normal and speaking this morning around 8 AM however later on around 1 PM she would not talk to him. She has been talking since that time. She has had 1 episode of emesis today. Daughter at bedside states that this is exactly how patient asked when she has a UTI with most recent UTI being this year in September. Patient is talkative and cooperative on history and denies any chest pain, fevers, chills, abdominal pain. She does report shortness of breath and dysuria. On assessment she was hemodynamically stable and in no acute distress. Afebrile. Her chest was clear to auscultation bilaterally. Her abdomen was soft nondistended and nontender to palpation. She was alert and oriented to person and can tell me who she was and who her family was around the room however she could not tell me the year or what city she currently lives and. Family reports that she would not know this information. She followed my commands appropriately. Neurological assessment was nonfocal. Otherwise exam findings unremarkable differential diagnoses include but limited to UTI, electrolyte disturbance, ACS, COPD exacerbation, pleural effusion, pneumonia, intracranial normalities, among others. EKG personally interpreted by me. Sinus rhythm with rate of 78 bpm. Right bundle branch block. No ischemic changes. Labs today remarkable for a WBC of 11. VBG with pH of 7.36. pCO2 of 50.9. Lactate of 1.3. Initial troponin 0.01. BNP is elevated at 716. I have ordered for 1 mg of IV Bumex. Urinalysis showing 3+ leukocyte esterase, will treat with ceftriaxone. CT scan of the head on my informal interpretation does not show any acute intracranial abnormalities. On reassessment the patient remains hemodynamically stable and in no acute distress. I discussed ED workup and results as well as current plan to admit for UTI and CHF. Patient/family verbalized understanding and agreement with plan. I did consult with hospital medicine and discussed management and they have agreed to evaluate and admit. Patient remains hemodynamically stable and in no acute distress Critical Care Critical Care Time Critical Care Time: No
[2024-03-28 15:30] LABS: Eosinophils % 1 % (0-3); Lymphocytes % 11 % (10-50); Monocytes % 3 % (2-9); Neutrophils % 85 % (42-76); Platelet Estimate Normal; RBC Morphology Normal; Total Cells Counted 100
--- NOTE | 2024-03-28 15:38 | ECG_ITS ---
APPROVED REPORT Exam: Resting ECG HR:78 bpm ECG Measurements Heart Rate 78 AXES [place] 198 P 71 QRSd 149 QRS 18 QT 399 T 20 QTc 432 Conclusion SINUS RHYTHM WITH OCCASIONAL SUPRAVENTRICULAR PREMATURE COMPLEXES RIGHT BUNDLE BRANCH BLOCK [120+ ms QRS DURATION, UPRIGHT V1, 40+ ms S IN I/aVL/V4/V5/V6] ABNORMAL ECG UNCONFIRMED REPORT Electronically signed by : BRYCE VIVAS, 03/29/2024 00:34:46
[2024-03-28 15:49] LABS: Microscopic, Urine URINE MICROSCOPIC (MICROSCOPIC)
[2024-03-28 15:58] LABS: NT Pro Brain Natriuretic Pep. 716 pg/mL (0-125); Troponin I 0.01 ng/ml (0.00-0.034)
[2024-03-28 16:07] LABS: Bilirubin,Urine Negative (Negative); Blood, Urine 2+ (Negative); Color,Urine YELLOW (Yellow); Glucose,Urine (UA) Negative (Negative); Ketones,Urine Negative (Negative); Leukocyte Esterase,Urine 3+ (Negative); Nitrate,Urine Negative (Negative); PH,Urine 5.5 (5.0-8.5); Protein,Urine 2+ (Negative); Specific Gravity, Urine 1.025 (1.005-1.030); Urobilinogen,Urine 0.2 EU/dl (0.2)
[2024-03-28 16:09] LABS: Appearance,Urine Cloudy (Clear)
[2024-03-28 16:27] LABS: Bacteria,Urine Trace /lpf; RBC,Urine 20-50 #/hpf (0-3); Squamous Epithelial Cell,Urine Occasional #/hpf (0-5); WBC,Urine 20-50 #/hpf (0-3)
[2024-03-28] MEDS: CEFTRIAXONE 1 GM 1 GM in 0.9 % SODIUM CHLORIDE 50 ML IV (16:30)
[2024-03-28] MEDS: BUMETANIDE 1MG/4ML VIAL 1 MG IV (16:30)
--- NOTE | 2024-03-28 16:31 | PC.NURSE ---
HS aware of admission
--- NOTE | 2024-03-28 17:00 | PC.NURSE ---
called report to Marilou
--- NOTE | 2024-03-28 17:25 | EXP.HP ---
History of Present Illness *Admission Date: 03/28/24 *Reason for visit:: Altered mental status, weakness *History of present illness: 73-year-old female patient with past medical history of diastolic heart failure, atrial fibrillation, urinary retention sees Dr. Gonzalez urologist, diabetes, hypertension, hyperlipidemia, acute on chronic weakness. Patient presents with febrile illness, altered mental status, weakness starting this a.m. Wmvncpca-ot-yxw states patient unable to ambulate normally, or put on her depends without assistance. Dlcnnhzn-sq-awr states that it takes herself, her son, and her to help patient with activities of daily living and she normally is not that week. Cjshtysb-gc-elg also states patient suffered from orange liquid like emesis this a.m. Patient disoriented to current events, time, location per kkocevdf-oc-omc prior to arrival to hospital. Patient given IV Rocephin in emergency room prior to Dr. Martins's evaluation. Patient's temperature in emergency room 102 Fahrenheit. After IV Rocephin patient oriented to location, current events, and lmzkvhbr-aj-mnq's face. Denies chest pain, shortness of breath, abdominal pain, diarrhea/constipation. Patient sees Dr. Taylor, urologist for urinary retention. Patient has been on prophylactic antibiotic nitrofurantoin for past 3 months. Last hospitalization August [facility], with patient sent to short-term rehab for 19 days after hospitalization. Patient on daily Bumex for heart failure management. Patient uses 2 to 2-1/2 L oxygen chronically at home at baseline. Patient on 2 L oxygen at time evaluation by Dr. Martins in emergency room. Qrqqvcns-on-ijg also states patient uses BiPAP nocturnal at baseline. [facility] Disclaimer: The information contained in this section may have been updated after the patient was seen, as this information can be updated by other users. Medical History (Updated 03/28/24 @ 17:33 by Gee Martins MD) Adult failure to thrive Dyspnea Lumbar disc disease with radiculopathy Pneumonia Acute respiratory failure with hypoxia and hypercarbia Acute and chronic respiratory failure with hypoxia Iron deficiency anemia Hyponatremia Physical deconditioning Bacteremia CHF exacerbation Intermittent confusion Urinary incontinence Physical deconditioning Acute hip pain Low back pain Aortic stenosis Contrast media allergy Anemia Non-STEMI (non-ST elevated myocardial infarction) Acute on chronic diastolic heart failure Asthma exacerbation in COPD Restrictive lung disease Dyspnea on exertion Typical angina Atrial fibrillation Hypoxemia ERICKSON (obstructive sleep apnea) Nocturnal hypoxemia ERICKSON (obstructive sleep apnea) Abnormal PFT COPD (chronic obstructive pulmonary disease) Dyspnea on exertion Restrictive lung disease Stopped smoking with greater than 30 pack year history Pulmonary hypertension Chronic hypoxemic respiratory failure History of 2019 novel coronavirus disease (COVID-19) Sleep disorder breathing Chronic pain Atrial fibrillation Diabetic neuropathy associated with type 2 diabetes mellitus Biventricular CHF (congestive heart failure) Severe pulmonary hypertension Pulmonary HTN Atypical angina Lumbar disc disease Atypical chest pain Sciatica associated with disorder of lumbar spine Lumbar radiculopathy, chronic Proliferative diabetic retinopathy Lumbar radiculopathy Pneumonia Morbid obesity with BMI of 40.0-44.9, adult Weakness Diarrhea Bilateral swelling of feet IDDM (insulin dependent diabetes mellitus) Lumbar radiculopathy, chronic Diabetic gastroparesis associated with type 2 diabetes mellitus Vertigo CHF (congestive heart failure) Hypothyroidism GERD (gastroesophageal reflux disease) Coronary artery disease Vitamin D deficiency Anxiety Depression Hyperlipidemia Hypertension Diabetes mellitus Surgical History History of lumpectomy History of eye surgery History of cataract surgery History of heart valve replacement Hx of CABG Family History Other Cancer Diabetes Heart attack Hyperlipidemia Hypertension Stroke Thyroid disorder Social History Smoking Status: Never smoker second hand exposure: No alcohol intake: never substance use type: denies use current occupational status: unemployed Travel in the last 8 weeks: None household members: children housing: house current occupational exposures/hazards: No caffeine: Yes Review of Systems Constitutional Constitutional: Reports system reviewed and no additional complaints, except as documented Meds Home Medications and Allergies Home Medications ?Medication ?Instructions ?Recorded ?Confirmed ?Type ascorbic acid (vitamin C) 500 mg 500 mg PO DAILY 09/26/23 03/14/24 History tablet (Vitamin C) bisoprolol fumarate 5 mg tablet 2.5 mg PO DAILY 09/26/23 03/14/24 History buspirone 5 mg tablet 5 mg PO DAILY 09/26/23 03/14/24 History citalopram 40 mg tablet 40 mg PO DAILY 09/26/23 03/14/24 History clopidogrel 75 mg tablet 75 mg PO DAILY 09/26/23 03/14/24 History ferrous sulfate 325 mg (65 mg 325 mg PO DAILY 09/26/23 03/14/24 History iron) tablet (iron) icosapent ethyl 1 gram capsule 2 g PO BID 09/26/23 03/14/24 History levothyroxine 50 mcg tablet 50 mcg PO DAILY 09/26/23 03/14/24 History multivitamin 1 tab PO DAILY 09/26/23 03/14/24 History omeprazole 20 mg capsule,delayed 20 mg PO DAILY 09/26/23 03/14/24 History release polyethylene glycol 3350 17 gram 17 g PO DAILY 09/26/23 03/14/24 History oral powder packet (Miralax) zinc 50 mg tablet 50 mg PO DAILY 09/26/23 03/14/24 History acetaminophen 500 mg tablet 500 mg PO Q6H PRN Pain (Scale 09/27/23 03/14/24 History Score 1-3) cholecalciferol (vitamin D3) 25 1,000 unit PO BID 09/27/23 03/14/24 History mcg (1,000 unit) capsule ondansetron HCl 8 mg tablet 8 mg PO Q12H PRN nausea and 10/03/23 03/14/24 Rx vomiting #30 tabs atorvastatin 40 mg tablet 40 mg PO HS #90 tabs 10/04/23 03/14/24 Rx blood-glucose meter #1 ea 10/16/23 03/14/24 Rx fluticasone furoate 200 1 inh inhalation DAILY 90 days #90 10/16/23 03/14/24 Rx mcg-vilanterol 25 mcg/dose ea inhalation powder (Breo Ellipta) ipratropium 0.5 mg-albuterol 3 mg 3 ml inhalation QID PRN shortness 10/16/23 03/14/24 Rx (2.5 mg base)/3 mL nebulization of breath or wheezing 90 days #270 soln mL hydrocodone 5 mg-acetaminophen 325 1 tab PO BID PRN pain #60 tabs 12/11/23 03/14/24 Rx mg tablet apixaban 5 mg tablet (Eliquis) See Rx Instructions .Route 01/03/24 03/14/24 Rx .COMPLEX #90 tabs dulaglutide 0.75 mg/0.5 mL See Rx Instructions .Route 01/15/24 03/14/24 Rx subcutaneous pen injector .COMPLEX #2 mL (Trulicity) metoclopramide HCl 5 mg tablet See Rx Instructions .Route 01/15/24 03/14/24 Rx .COMPLEX #180 tabs albuterol sulfate 90 mcg/actuation 2 inh inhalation QID PRN shortness 01/29/24 03/14/24 Rx aerosol inhaler of breath or wheezing 90 days #8.5 grams cefdinir 300 mg capsule 300 mg PO BID #20 caps 01/29/24 03/14/24 Rx gabapentin 400 mg capsule 400 mg PO BID #60 caps 01/29/24 03/14/24 Rx bumetanide 1 mg tablet 0.5 mg (1/2 x 1 mg) PO DAILY #30 02/19/24 03/14/24 Rx tabs hydrocodone 10 mg-acetaminophen 0.5 tab PO BID #30 tabs 02/28/24 03/14/24 Rx 325 mg tablet cranberry 500 mg capsule 500 mg PO BID 03/08/24 03/14/24 History meclizine 25 mg tablet See Rx Instructions .Route 03/11/24 03/14/24 Rx .COMPLEX #180 tabs nitrofurantoin macrocrystal 100 mg 100 mg PO HS 30 days #30 caps 03/11/24 03/14/24 Rx capsule (Macrodantin) New Prescriptions to Start Prescriptions: Allergies Allergy/AdvReac Type Severity Reaction Status Date / Time Iodinated Contrast Media Allergy Intermediate Hives Verified 03/14/24 14:28 [Iodinated Contrast Media - IV Dye] celecoxib [From CELEBREX] Allergy Unknown SWELLING Verified 03/14/24 14:28 ibuprofen [IBUPROFEN] Allergy Unknown S-BLISTERING Verified 03/14/24 14:28 WELTS meloxicam [MELOXICAM] Allergy Unknown S-BLISTERING Verified 03/14/24 14:28 WELTS Penicillins [PENICILLINS] Allergy Unknown I-HIVES Verified 03/14/24 14:28 rofecoxib [From VIOXX] Allergy Unknown I-HIVES Verified 03/14/24 14:28 Exam Data for Last 24 hours Vital signs and Labs for Last 24 Hours: Temp Pulse Resp BP Pulse Ox O2 Del Method O2 Flow Rate 102 F H 73 16 114/54 L 94 L Room Air 2.5 03/28/24 14:45 03/28/24 16:32 03/28/24 16:32 03/28/24 16:32 03/28/24 16:32 03/28/24 16:32 03/28/24 14:45 Laboratory Results - last 24 hr 03/28/24 14:42: WBC 11.0 H, RBC 4.46, Hgb 12.7, Hct 39.4, MCV 88.3, MCH 28.4, MCHC 32.2, RDW 16.0, Plt Count 217, MPV 7.7, Neut % (Auto) 89.1 H, Lymph % (Auto) 6.1 L, [place] % (Auto) 4.4, Eos % (Auto) 0.2, Baso % (Auto) 0.3, Neut # (Auto) 9.8 H, Lymph # (Auto) 0.7, [place] # (Auto) 0.5, Eos # (Auto) 0.0, Baso # (Auto) 0.0, Total Counted 100, Neutrophils % (Manual) 85 H, Lymphocytes % (Manual) 11, Monocytes % (Manual) 3, Eosinophils % (Manual) 1, Platelet Estimate Normal, RBC Morphology Normal, Sodium 136, Potassium 3.9, Chloride 102, Carbon Dioxide 32 H, Anion Gap 5.9, BUN 22 H, Creatinine 0.90, Estimated Creat Clear 84, Estimated GFR 61, Est GFR ( Amer) 74, Glucose 142 H, Lactate 1.3, Calcium 9.8, Total Bilirubin 0.6, AST 28, ALT 26, Alkaline Phosphatase 99, Troponin I 0.01, NT-Pro-B Natriuret Pep 716 H, Total Protein 7.2, Albumin 3.8, Globulin 3.4 H, Albumin/Globulin Ratio 1.1 03/28/24 14:48: VBG pH 7.36, VBG pCO2 50.9, VBG pO2 41.1 H, VBG HCO3 28.2, VBG Total CO2 29.8 H, VBG O2 Saturation 76.9 H, VBG Base Excess 2.8 H, VBG Lactic Acid 1.7 03/28/24 15:36: Urine Color Yellow, Urine Appearance Cloudy, Urine pH 5.5, Ur Specific [place] 1.025, Urine Protein 2+ A, Urine Glucose (UA) Negative, Urine Ketones Negative, Urine Blood 2+ A, Urine Nitrate Negative, Urine Bilirubin Negative, Urine Urobilinogen 0.2, Ur Leukocyte Esterase 3+ A, Urine RBC 20-50, Urine WBC 20-50, Ur Squamous Epith Cells Occasional, Urine Bacteria Trace I & O for Last 24 hours: Intake & Output 03/25/24 03/26/24 03/27/24 03/28/24 23:59 23:59 23:59 23:59 Weight 107.955 kg *Routine HEENT Exam Head: Present normocephalic Eye: Present EOMI and normal accommodation ENT: Present mucous membranes moist *Routine Neck Exam Neck: Present supple and full ROM *Routine Respiratory Exam Respiratory: Present prolonged expiratory phase and diminished air movement *Routine Cardiovascular Exam Cardiovascular: Present RRR, Normal S1 and Normal S2 *Routine Abdominal Exam Abdominal: Present soft and normoactive bowel sounds *Routine Rectal Exam Rectal:: deferred *Routine Genitalia Exam Genitalia:: deferred *Routine Extremities Exam Comments: +3 bilateral pitting edema noted. Chronic venous stasis wounds noted. *Routine Skin Exam Skin: Present intact and erythema Comments: Sign/symptoms of bilateral lower extremity lymphedema noted. *Routine Neurological Exam Neurological: Present alert, oriented X3 and CN II-XII intact Assessment and Plan *Assessment and plan (1) Adult failure to thrive: Status: Acute Category: Medical Code(s): R62.7 - Adult failure to thrive (2) (HFpEF) heart failure with preserved ejection fraction: Status: Acute Category: Medical Code(s): I50.30 - Unspecified diastolic (congestive) heart failure (3) Dyspnea: Status: Acute Qualifiers: Dyspnea type: shortness of breath Qualified Code(s): R06.02 - Shortness of breath Category: Medical Code(s): R06.00 - Dyspnea, unspecified (4) Diabetes mellitus with diabetic neuropathy: Status: Chronic Qualifiers: Diabetes mellitus type: type 2 Diabetes mellitus 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 insulin use: with 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 termite use Qualified Code(s): E11.40 - Type 2 diabetes mellitus with diabetic neuropathy, unspecified; Z79.4 - intermediate (current) use of insulin Category: Medical Code(s): E11.40 - Type 2 diabetes mellitus with diabetic neuropathy, unspecified (5) Acute respiratory failure with hypoxia and hypercarbia: Status: Acute Category: Medical Code(s): J96.01 - Acute respiratory failure with hypoxia; J96.02 - Acute respiratory failure with hypercapnia (6) Hypothyroidism: Status: Chronic Qualifiers: Hypothyroidism type: acquired Qualified Code(s): E03.9 - Hypothyroidism, unspecified Category: Medical Code(s): E03.9 - Hypothyroidism, unspecified (7) Diabetes mellitus: Problem Comment: type 2 non insulin dep Status: Chronic Qualifiers: Diabetes mellitus type: type 2 Diabetes mellitus complication status: with hyperglycemia Diabetes mellitus snf insulin use: with snf use Qualified Code(s): E11.65 - Type 2 diabetes mellitus with hyperglycemia Category: Medical Code(s): E11.9 - Type 2 diabetes mellitus without complications (8) Paroxysmal atrial fibrillation: Status: Acute Category: Medical Code(s): I48.0 - Paroxysmal atrial fibrillation (9) Lymphedema of both lower extremities: Status: Acute Category: Medical Code(s): I89.0 - Lymphedema, not elsewhere classified (10) CHF (congestive heart failure): Status: Acute Qualifiers: Heart failure chronicity: acute on chronic Heart failure type: unspecified Qualified Code(s): I50.9 - Heart failure, unspecified Category: Medical Code(s): I50.9 - Heart failure, unspecified (11) Urge incontinence: Status: Acute Category: Medical Code(s): N39.41 - Urge incontinence Plan 73-year-old female patient with past medical history of diastolic heart failure, atrial fibrillation, urinary retention sees Dr. Gonzalez urologist, diabetes, hypertension, hyperlipidemia, acute on chronic weakness. Patient presents with febrile illness, altered mental status, weakness starting this a.m. patient presents to emergency room with temperature at 102 ?F, altered mental status and symptoms strangely suspicious for urinary tract infection. Plan as stated below: Febrile illness likely secondary to UTI: ? Patient suffers from urinary retention issues. Sees Dr. Taylor urologist. Patient on prophylactic antibiotics nitrofurantoin daily for last 3 months. Likely suffering from UTI with high suspicion for possible ESBL organism. Urine culture, blood cultures done emergency room. Empirically start IV meropenem until sensitivities available. Follow inflammatory markers. No sepsis bolus given patient's heart failure, and daily Bumex use. Atrial fibrillation: Continue home management watch for signs of RVR during hospitalization. Keep patient on telemetry. Continue home apixaban Diabetes: Sign scale insulin, ACHS Accu-Cheks, diabetic appropriate diet Hypertension: Continue home management Lymphedema: Continue home management Hypothyroidism: Continue home management Urinary retention: Mcmillan placement during hospitalization, follow I's and O's closely. CHF: Cautious use of fluids during hospitalization. Initially hold Bumex, but restart if patient shows signs of fluid overload. PPx: Apixaban CODE STATUS full FEN: Diabetic/cardiac Case discussed with patient, nursing staff, patient's ahmwhnlq-or-swu by Dr. Martins at time of admission 03/28/2024
[2024-03-28 17:39] LABS: C-Reactive Protein 50.9 mg/L (0-4)
[2024-03-28 17:49] LABS: Procalcitonin 0.086 ng/mL (0.0-2.0)
[2024-03-28 20:10] LABS: Troponin I 0.01 ng/ml (0.00-0.034)
[2024-03-28] MEDS: MEROPENEM 1 GM in 0.9 % SODIUM CHLORIDE 100 ML IV (20:39)
[2024-03-28 21:00] LABS: POC Glucose,Bedside 165 (70-110)
[2024-03-28] MEDS: humaLOG 100 UNITS/ML 10ML VIAL (SSI) SQ (21:01)
[2024-03-28] MEDS: GABAPENTIN 400MG CAPSULE 400 MG PO (21:02)
[2024-03-28] MEDS: ATORVASTATIN 40MG TABLET 40 MG PO (21:02)
[2024-03-28 22:19] LABS: Troponin I 0.01 ng/ml (0.00-0.034)
[2024-03-29] VITALS (9 sets, daily range): BP systolic 116–164; BP diastolic 66–77; PULSE 64–124; RESP 16–22; TEMP 36.4–38.1; O2SAT 91–95; BMI 38.7
[2024-03-29] MEDS: MEROPENEM 1 GM in 0.9 % SODIUM CHLORIDE 100 ML IV ×3 (05:23→20:12)
[2024-03-29 06:02] LABS: POC Glucose,Bedside 132 (70-110)
[2024-03-29 07:21] LABS: Basophils % 0.3 % (0.1-2.0); Eosinophils % 0.2 % (0.1-12.0); Hematocrit 35.6 % (37.0-47.0); Hemoglobin 11.7 g/dL (12.2-16.2); Lymphocytes % 13.7 % (10-50); Mean Corpuscular HGB Conc 32.8 g/dL (31.8-35.4); Mean Corpuscular Hemoglobin 28.3 pg (27.0-31.2); Mean Corpuscular Volume 86.3 fl (81-99); Mean Platelet Volume 7.6 fl (7.4-10.4); Monocytes # 0.5 K/mm3 (0.1-1.0); Monocytes % 7.1 % (1.7-9.3); Neutrophils % 78.8 % (37.0-80.0); Platelet Count 199 K/mm3 (142-424); Red Blood Count 4.13 M/mm3 (4.20-5.40); White Blood Count 7.6 K/mm3 (4.8-10.8)
[2024-03-29 07:34] LABS: C-Reactive Protein 128.3 mg/L (0-4)
[2024-03-29 07:43] LABS: Procalcitonin 0.129 ng/mL (0.0-2.0)
[2024-03-29 08:38] LABS: Anion Gap 8.6 mEq/L (5-15); Blood Urea Nitrogen 19 mg/dl (7-17); Calcium 9.5 mg/dl (8.4-10.2); Carbon Dioxide 28 mmol/L (22.0-30.0); Chloride 103 mmol/L (98-107); Creatinine Clearance Estimated 82 mL/min (50-200); Estimated Glomerular Filt Rate 70 ml/min (>60); GFR (African American) 85 ML/MIN (>60); Glucose 130 mg/dl (74-100); Magnesium 1.7 mg/dl (1.6-2.3); Potassium 3.6 mmoL/L (3.5-5.1); Sodium 136 mmol/L (136-145)
[2024-03-29] MEDS: GABAPENTIN 400MG CAPSULE 400 MG PO ×2 (08:55→20:12)
[2024-03-29] MEDS: LEVOTHYROXINE 50MCG (0.05MG) TAB 50 MCG PO (08:55)
[2024-03-29] MEDS: APIXABAN 5MG TABLET 5 MG PO ×2 (08:55→20:11)
[2024-03-29] MEDS: CLOPIDOGREL 75MG TAB 75 MG PO (08:56)
--- NOTE | 2024-03-29 09:19 | SW/DCPLANNER ---
Addendum entered by [facility] 04/01/24 16:18: Shaista w/ [facility] and [facility] stated they could not accept patient for services. There are no home health agencies available in patient's location. I will call and update patient/family. Addendum entered by [facility] 04/01/24 15:38: Alonso w/ [facility] is not able to accept patient. Patient information/order has been faxed to [facility]. Addendum entered by [facility] 04/01/24 14:26: Marialuisa w/ [facility] stated that they are not able to accept patient due to staffing. Patient information/order has been faxed to [facility]. I will follow up w/ Alonso at [facility] once information/order is reviewed. Addendum entered by [facility] 04/01/24 08:34: Patient information/order will be faxed to [facility] this AM. Patient discharged home over the weekend. Original Note: I spoke w/ patient and her son regarding plans once medically stable for discharge. PT/OT evaluated patient this AM and recommended SNF level of care at time of discharge. Patient and son are refusing placement at this time and prefer to return home w/ home health services (no preference). Son stated that patient has everything patient she needs at home. I will set up home health services at time of discharge. Discharge date is unknown at this time.
--- NOTE | 2024-03-29 09:41 | PC.NURSE ---
Awaiting family to ask about three of the patient's meds that have not been confirmed.
--- NOTE | 2024-03-29 09:53 | HMH.PTEV ---
Physical Therapy Evaluation Rehab PT IP Evaluation Start: 03/28/24 17:17 Freq: ONCE Status: Active Protocol: Document 03/29/24 08:38 LAURO (Rec: 03/29/24 09:53 LAURO [id number]) Subjective/History History History This is an initial acute-care PT evaluation for Shilpa Armas who presents to [facility] with febrile illness, altered mental status, and weakness. Subjective Subjective Everyone calls me Pat Pt reports she was living with her son and DIL prior to admission. Pt reports she needed help from her family for dressing, bathing, walking with RW, and bed mobility. Pt owns a w/c, RW, and hospital bed. Pt lives in a 2-story home with 2[address] DIL able to stay / to assist. Family not in room to confirm history. Per H&P: Depbfonc-fv-klu states patient unable to ambulate normally, or put on her depends without assistance. Cpccvcbt-jv-dgp states that it takes herself, her son, and her to help patient with activities of daily living New diagnosis of cancer in past 12 No months? Rehab PT IP Eval Objective Appearance Patient Behavior Appropriate,Cooperative Patient Orientation Person Difficulty following instructions none Speech Pattern Clear Ambulation Patient Able to Ambulate No Balance Ability to Arise Able, uses arms to help Sitting Balance Steady, safe Standing Balance Unsteady Transfers Bed Transfer Ability Maximum x 1 (75% assist) Rehab PT IP prob,goals,plan Problems Date of Evaluation: 03/29/24 PT IP Problems Bed Mobility,Transfers,Gait, Balance,Self care,Safety Rehab Potential Rehab Potential Good Plan PT Intervention Plan Bed Mobility,Transfers,Gait, Balance,Self care,Safety, Therapeutic Exercise Other Intervention Plan 1-2 times PT Plan Frequency Daily Duration LOS Discharge Goals Bed Transfer Ability Moderate x 2 (50% assist) Sit to Stand Chair Transfer Ability Maximum x 2 (75% assist) Discharge Plan PT Discharge Plan Initial physical therapy evaluation performed. Patient presents below baseline at this time in functional mobility, transfers, and strength. Pt not safe to return home at this time d/t current level of functional mobility and increased need for assistance. Pt was unable to demo weakness this morning despite assistance d/t weakness. PT recommending short-term rehabilitation stay upon d/c from [facility]. Pt would benefit from skilled PT while at [facility] to prevent further functional decline and maximize safety with mobility. Eval Complexity Eval Charge Codes 37389 - High Complexity PHYSICIAN CERTIFICATION: I certify the specified therapy services for Shilpa Armas are required, authorized, and reviewed every 30 days.
[2024-03-29 10:17] LABS: POC Glucose,Bedside 189 (70-110)
[2024-03-29] MEDS: humaLOG 100 UNITS/ML 10ML VIAL (SSI) SQ ×2 (10:48→21:02)
--- NOTE | 2024-03-29 10:58 | HMH.OTEV ---
OT Inpatient Evaluation Rehab OT IP Evaluation Start: 03/28/24 17:17 Freq: ONCE Status: Active Protocol: Document 03/29/24 10:50 [facility] (Rec: 03/29/24 10:58 [facility] [id number]) Rehab OT IP Assessment Subjective History Pt oriented x 3 on arrival. Pt agreeable to engage in therapy evaluation. Pt was admitted on 03/28/24 due to UTI, altered mental status. History and physical: 73-year-old female patient with past medical history of diastolic heart failure, atrial fibrillation, urinary retention sees Dr. Gonzalez urologist, diabetes, hypertension, hyperlipidemia, acute on chronic weakness. Patient presents with febrile illness, altered mental status , weakness starting this a.m. Szkbkoyj-ag-fka states patient unable to ambulate normally, or put on her depends without assistance. Damokxcd-dd-dle states that it takes herself, her son, and her to help patient with activities of daily living and she normally is not that week. Daughter-in- law also states patient suffered from orange liquid like emesis this a.m. Patient disoriented to current events , time, location per daughter- in-law prior to arrival to hospital. Patient given IV Rocephin in emergency room prior to Dr. Martins's evaluation . Patient's temperature in emergency room 102 Fahrenheit. After IV Rocephin patient oriented to location, current events, and wodhnggv-hk-bqo's face. Denies chest pain, shortness of breath, abdominal pain, diarrhea/constipation. Patient sees Dr. Taylor, urologist for urinary retention. Patient has been on prophylactic antibiotic nitrofurantoin for past 3 months. Last hospitalization August [facility], with patient sent to short-term rehab for 19 days after hospitalization. Patient on daily Bumex for heart failure management. Patient uses 2 to 2-1/2 L oxygen chronically at home at baseline. Patient on 2 L oxygen at time evaluation by Dr. Martins in emergency room. Ltzgemsu-of-ncs also states patient uses BiPAP nocturnal at baseline. Subjective I have been better. Pt reports she was living with her son and DIL prior to admission. Pt reports she needed help from her family for dressing, bathing, walking with RW, and bed mobility. Pt dependent upon family for completion of all IADLs. Pt owns a w/c, RW, and hospital bed. Pt lives in a 2-story home with 2[address] DIL able to stay / to assist. Family not in room to confirm history. Per H&P: Pucmgbvl-lp-kcl states patient unable to ambulate normally, or put on her depends without assistance. Hsoydavw-ow-pcz states that it takes herself, her son, and her to help patient with activities of daily living Objective Patient Orientation Person,Place,Name Right Upper Extremity Gross ROM WFL Left Upper Extremity Gross ROM WFL Bed Mobility bed mobility-scooting,bed mobility - supine/sit Assist Level Moderate x 2 (50% assist) Rehab OT IP prob,goals,plan Problems Date of Evaluation: 03/29/24 OT IP Problems Bed Mobility,Transfers,Balance ,Self care,Safety Rehab Potential Rehab Potential Good Equipment Needs Assistive Devices Rolling / Wheeled Walker Plan OT intervention Plan Bed Mobility,Transfers,Balance ,Self care,Safety,Therapeutic Exercise OT Plan Frequency Daily Duration LOS Discharge Goals Bed Mobility Ability Assistance x1 Sit to Stand Chair Transfer Ability Moderate x 1 (50% assist) Chair Transfer Ability Moderate x 1 (50% assist) Chair Transfer Technique Sit to/from Ambulatory Feeding Ability Assist with Tray Set Up Lower Body Dressing Ability Moderate Assistance Upper Body Dressing Ability Minimal Assistance Bathing Ability Moderate Assistance Performing Toilet Hygiene Ability Moderate Assistance Overall Commode/Toilet Transfer Ability Maximum Assistance Commode/Toilet Transfer Technique Sit to/from Ambulatory Commode/Toilet Transfer Assistive Grab Bars Devices Oral Care Assist Minimal Assistance Decrease in Endurance Yes Discharge Plan OT Discharge Plan Initial occupational therapy evaluation performed. Patient presents below baseline at this time in functional transfers, ADL independence, and strength. Pt not safe to return home at this time d/t current level of functional independence and increased need for assistance. OT recommending short-term rehabilitation stay upon d/c from [facility]. Pt would benefit from skilled OT while at [facility] to prevent further functional decline and maximize safety with mobility. Eval Complexity Eval Charge Codes 19167 - Moderate Complexity PHYSICIAN CERTIFICATION: I certify the specified therapy services for Shilpa Armas are required, authorized, and reviewed every 30 days.
--- NOTE | 2024-03-29 14:56 | PC.NURSE ---
Aox 1, turn every two hours, fsbg achs, 02-2L nc 90's she also wears at home, 20G R AC sl and getting abx, brief and purewick for incontinence, plan when d/c is home with home health.
[2024-03-29 15:59] LABS: POC Glucose,Bedside 148 (70-110)
--- NOTE | 2024-03-29 16:27 | PC.NURSE ---
f/c removed at 16:00.
[2024-03-29] MEDS: FLUTICASONE/SALMETEROL 500/50MCG DISKUS 1 PUFF IH (18:48)
--- NOTE | 2024-03-29 19:01 | P.PN_ITS ---
Subjective *Date: 03/29/24 *Time: 19:04 Interval history: Patient less confused versus yesterday. Very pleasant during interview with Dr. Martins. Denies fever/chills overnight. Tolerating IV meropenem without complications. Medical Exam Vital signs and Labs for Last 24 Hours: Vital Signs Temp Pulse Resp BP Pulse Ox O2 Del Method O2 Flow Rate 03/29/24 18:49 91 L Nasal Cannula 2 03/29/24 18:18 Nasal Cannula 2 03/29/24 16:38 Nasal Cannula 2 03/29/24 13:42 Nasal Cannula 2 03/29/24 12:26 Nasal Cannula 2 03/29/24 12:00 97.7 F 116 H 20 116/72 94 L Nasal Cannula 2 03/29/24 10:35 Nasal Cannula 2 03/29/24 08:00 99 F 71 21 147/71 H 94 L Nasal Cannula 2 03/29/24 07:51 Nasal Cannula 2 03/29/24 07:50 Nasal Cannula 2 03/29/24 06:35 Nasal Cannula 2 03/29/24 05:00 Nasal Cannula 2 03/29/24 04:00 99.7 F H 67 18 132/66 94 L Nasal Cannula 2 03/29/24 03:00 Nasal Cannula 2 03/29/24 01:00 Nasal Cannula 2 03/29/24 00:00 99.3 F 67 20 134/77 93 L Nasal Cannula 2 03/28/24 23:00 Nasal Cannula 2 03/28/24 21:00 Nasal Cannula 2 03/28/24 20:00 94 L Nasal Cannula 2 03/28/24 20:00 99.7 F H 68 16 129/73 94 L Nasal Cannula 2 Intake and Output 03/29/24 03/29/24 03/29/24 07:59 15:59 23:59 Intake Total 240 / 1010 770 / 1010 Output Total 700 / 1500 0 / 1500 800 / 1500 Balance -460 / -490 770 / -490 -800 / -490 Intake: Intake, Oral Amount 240 / 960 720 / 960 Intake, Total IV Amount 50 / 50 Meropenem 1 gm In 0.9 % Sodium 50 / 50 Chloride 100 ml @ 100 mls/hr IV Q8H [facility] Rx#:[id number] Output: Output, Urine Amount 700 / 1500 0 / 1500 800 / 1500 Other: Number of Voids 0 Number of Unmeasured Voids 0 Weight 105.64 kg Patient Weight 03/29/24 23:59 Weight 105.64 kg Laboratory Results - last 24 hr 03/28/24 15:36: Urine Color Yellow, Urine Appearance Cloudy, Urine pH 5.5, Ur Specific [place] 1.025, Urine Protein 2+ A, Urine Glucose (UA) Negative, Urine Ketones Negative, Urine Blood 2+ A, Urine Nitrate Negative, Urine Bilirubin Negative, Urine Urobilinogen 0.2, Ur Leukocyte Esterase 3+ A, Urine RBC 20-50, Urine WBC 20-50, Ur Squamous Epith Cells Occasional, Urine Bacteria Trace 03/28/24 19:33: Troponin I 0.01 03/28/24 20:49: POC Glucose 165 H 03/28/24 21:41: Troponin I 0.01 03/29/24 05:56: POC Glucose 132 H 03/29/24 06:35: WBC 7.6 D, RBC 4.13 L, Hgb 11.7 L, Hct 35.6 L, MCV 86.3, MCH 28.3, MCHC 32.8, RDW 16.0, Plt Count 199, MPV 7.6, Neut % (Auto) 78.8, Lymph % (Auto) 13.7, [place] % (Auto) 7.1, Eos % (Auto) 0.2, Baso % (Auto) 0.3, Neut # (Auto) 6.0, Lymph # (Auto) 1.0, [place] # (Auto) 0.5, Eos # (Auto) 0.0, Baso # (Aut o) 0.0, Sodium 136, Potassium 3.6, Chloride 103, Carbon Dioxide 28, Anion Gap 8.6, BUN 19 H, Creatinine 0.80, Estimated Creat Clear 82, Estimated GFR 70, Est GFR ( Amer) 85, Glucose 130 H, Calcium 9.5, Magnesium 1.7, C-Reactive Protein 128.3 H, Procalcitonin 0.129 03/29/24 10:10: POC Glucose 189 H 03/29/24 15:50: POC Glucose 148 H I & O for Labs for Last 24 Hours: Intake & Output 03/26/24 03/27/24 03/28/24 03/29/24 23:59 23:59 23:59 23:59 Intake Total 100 / 340 1010 / 1010 Output Total 1500 / 1500 Balance 100 / 340 -490 / -490 Weight 105.642 kg 105.64 kg Microbiology Reports for the Last 24 Hours: Microbiology 03/28/24 15:04 Blood Blood Culture - Preliminary NO GROWTH AFTER 24 HOURS 03/28/24 14:48 Blood Blood Culture - Preliminary NO GROWTH AFTER 24 HOURS 03/28/24 15:36 Urine,Clean Catch Urine Culture - Preliminary Gram Negative Rods Head: Present atraumatic ENT: Present normal exam and normal oropharynx Neck: Present normal inspection and full ROM Respiratory: Present diminished air movement and normal respiratory effort Cardiac: Present Reg Rate and Rhythm GI: Present soft and normal bowel sounds Rectal (female): Present deferred (female): Present deferred Extremities: Present normal inspection and full ROM Comment:: Chronic venous stasis changes within some edema changes noted bilaterally lower extremity Skin: Present intact and dry Assessment and Plan *Assessment and plan (1) Adult failure to thrive: Status: Acute Category: Medical Code(s): R62.7 - Adult failure to thrive (2) Paroxysmal atrial fibrillation: Status: Acute Category: Medical Code(s): I48.0 - Paroxysmal atrial fibrillation (3) (HFpEF) heart failure with preserved ejection fraction: Status: Acute Category: Medical Code(s): I50.30 - Unspecified diastolic (congestive) heart failure (4) Hematuria: Status: Acute Category: Medical Code(s): R31.9 - Hematuria, unspecified (5) Dyspnea: Status: Acute Qualifiers: Dyspnea type: shortness of breath Qualified Code(s): R06.02 - Shortness of breath Category: Medical Code(s): R06.00 - Dyspnea, unspecified (6) Morbid obesity with body mass index (BMI) of 40.0 to 49.9: Status: Acute Category: Medical Code(s): E66.01 - Morbid (severe) obesity due to excess calories (7) Urge incontinence: Status: Acute Category: Medical Code(s): N39.41 - Urge incontinence (8) Diabetes mellitus with diabetic neuropathy: Status: Chronic Qualifiers: Diabetes mellitus termite treater helper insulin use: with mcfp use Diabetes mellitus type: type 2 Qualified Code(s): E11.40 - Type 2 diabetes mellitus with diabetic neuropathy, unspecified; Z79.4 - USP (current) use of insulin Category: Medical Code(s): E11.40 - Type 2 diabetes mellitus with diabetic neuropathy, unspecified Plan 73-year-old female patient with past medical history of diastolic heart failure, atrial fibrillation, urinary retention sees Dr. Taylor urologist, diabetes, hypertension, hyperlipidemia, acute on chronic weakness. Patient presents with febrile illness, altered mental status, weakness starting this a.m. patient presents to emergency room with temperature at 102 ?F, altered mental status and symptoms strangely suspicious for urinary tract infection. Admission urine culture positive for over 100,000 colony-forming units gram-negative rods. Plan as stated below: Febrile illness likely secondary to UTI: ?03/29 admission urine culture positive for over 100,000 colony-forming units gram-negative rods. Continue meropenem until sensitivities available. Extremely worried about possible ESBL organism given patient's history of multiple antibiotics/UTIs in the past. ? Patient suffers from urinary retention issues. Sees Dr. Taylor urologist. Patient on prophylactic antibiotics nitrofurantoin daily for last 3 months. Likely suffering from UTI with high suspicion for possible ESBL organism. Urine culture, blood cultures done emergency room. Empirically start IV meropenem until sensitivities available. Follow inflammatory markers. No sepsis bolus given patient's heart failure, and daily Bumex use. Atrial fibrillation: Continue home management watch for signs of RVR during hospitalization. Keep patient on telemetry. Continue home apixaban Diabetes: Sign scale insulin, ACHS Accu-Cheks, diabetic appropriate diet Hypertension: Continue home management Lymphedema: Continue home management Hypothyroidism: Continue home management Urinary retention: ?03/29 remove Mcmillan today and place PureWick. Do postvoid residuals. If postvoid residual between 250 to 300 cc, patient may need Mcmillan replaced during hospitalization. ?03/28 Mcmillan placement during hospitalization, follow I's and O's closely. CHF: Cautious use of fluids during hospitalization. Initially hold Bumex, but restart if patient shows signs of fluid overload. PPx: Apixaban CODE STATUS full FEN: Diabetic/cardiac Case discussed with patient, nursing staff, patient's [id number] by Dr. Martins at time of admission 03/28/2024
[2024-03-29] MEDS: HYDROCODONE 10MG/APAP 325MG TAB 0.5 TAB PO (20:11)
[2024-03-29] MEDS: PANTOPRAZOLE 40MG TABLET 40 MG PO (20:12)
[2024-03-29] MEDS: ATORVASTATIN 40MG TABLET 40 MG PO (20:12)
[2024-03-29] MEDS: METOCLOPRAMIDE 5MG TABLET 5 MG PO (20:13)
[2024-03-29 21:16] LABS: POC Glucose,Bedside 163 (70-110)
--- NOTE | 2024-03-30 02:53 | PC.NURSE ---
refusing q2h turns the second half of the night - wants to be left alone.
[2024-03-30 04:00] VITALS: BP 144/75; PULSE 80; RESP 16; TEMP 36.3; O2SAT 95; BMI 38.6
[2024-03-30] MEDS: MEROPENEM 1 GM in 0.9 % SODIUM CHLORIDE 100 ML IV ×3 (06:00→20:18)
[2024-03-30] MEDS: LEVOTHYROXINE 50MCG (0.05MG) TAB 50 MCG PO (06:26)
[2024-03-30] MEDS: FLUTICASONE/SALMETEROL 500/50MCG DISKUS 1 PUFF IH ×2 (06:31→20:09)
[2024-03-30 06:32] VITALS: O2SAT 94
--- NOTE | 2024-03-30 06:36 | PC.NURSE ---
100.5 oral at beginning of shift 03/29, pt took tashia'd norco and decreased room temp - recheck afebrile. voided at 0600 post marks removal on dayshi03/29 - pt allowed SRNA's to turn her this morning at 0500
[2024-03-30 06:37] LABS: POC Glucose,Bedside 117 (70-110)
[2024-03-30 07:47] LABS: Basophils % 0.3 % (0.1-2.0); Eosinophils % 0.3 % (0.1-12.0); Hematocrit 36.5 % (37.0-47.0); Hemoglobin 11.7 g/dL (12.2-16.2); Lymphocytes % 17.5 % (10-50); Mean Corpuscular Hemoglobin 27.7 pg (27.0-31.2); Mean Corpuscular Volume 86.6 fl (81-99); Mean Platelet Volume 7.7 fl (7.4-10.4); Monocytes # 0.4 K/mm3 (0.1-1.0); Monocytes % 6.3 % (1.7-9.3); Neutrophils # 4.2 K/mm3 (1.8-7.8); Neutrophils % 75.6 % (37.0-80.0); Platelet Count 171 K/mm3 (142-424); Red Blood Count 4.22 M/mm3 (4.20-5.40); White Blood Count 5.5 K/mm3 (4.8-10.8)
[2024-03-30 07:50] LABS: Anion Gap 3.6 mEq/L (5-15); Blood Urea Nitrogen 19 mg/dl (7-17); Calcium 9.5 mg/dl (8.4-10.2); Carbon Dioxide 31 mmol/L (22.0-30.0); Chloride 104 mmol/L (98-107); Creatinine Clearance Estimated 82 mL/min (50-200); Estimated Glomerular Filt Rate 82 ml/min (>60); GFR (African American) 99 ML/MIN (>60); Glucose 120 mg/dl (74-100); Magnesium 1.9 mg/dl (1.6-2.3); Potassium 3.6 mmoL/L (3.5-5.1); Sodium 135 mmol/L (136-145)
[2024-03-30 08:00] VITALS: BP 135/68; PULSE 79; RESP 20; TEMP 36.9; O2SAT 95
[2024-03-30 08:05] LABS: C-Reactive Protein 159.8 mg/L (0-4)
[2024-03-30 08:17] LABS: Procalcitonin 0.113 ng/mL (0.0-2.0)
[2024-03-30] MEDS: APIXABAN 5MG TABLET 5 MG PO ×2 (09:02→20:18)
[2024-03-30] MEDS: CLOPIDOGREL 75MG TAB 75 MG PO (09:03)
[2024-03-30] MEDS: CITALOPRAM 40MG TABLET 40 MG PO (09:03)
[2024-03-30] MEDS: BUSPIRONE HCL 5 MG TABLET PO (09:03)
[2024-03-30] MEDS: CHOLECALCIFEROL 1,000 UNITS (25MCG) TABLET 25 MCG PO (09:03)
[2024-03-30] MEDS: FERROUS SULFATE 325MG TABLET 325 MG PO (09:03)
[2024-03-30] MEDS: ASCORBIC ACID 500MG TAB 500 MG PO (09:03)
[2024-03-30] MEDS: POLYETHYLENE GLYCOL 3350 17 GM PACKET PO (09:04)
[2024-03-30] MEDS: ZINC SULFATE 220MG CAPSULE 220 MG PO (09:04)
[2024-03-30] MEDS: METOCLOPRAMIDE 5MG TABLET 5 MG PO ×2 (09:04→20:17)
[2024-03-30] MEDS: HYDROCODONE 10MG/APAP 325MG TAB 0.5 TAB PO ×2 (09:17→20:17)
[2024-03-30] MEDS: GABAPENTIN 400MG CAPSULE 400 MG PO ×2 (09:17→20:17)
[2024-03-30 11:09] LABS: POC Glucose,Bedside 144 (70-110)
[2024-03-30 16:00] VITALS: BP 155/73; PULSE 82; RESP 20; TEMP 37.2; O2SAT 96
[2024-03-30] MEDS: MULTIVITAMIN TABLET 1 EACH PO (16:27)
[2024-03-30 17:04] LABS: POC Glucose,Bedside 123 (70-110)
--- NOTE | 2024-03-30 17:46 | P.PN_ITS ---
Subjective *Date: 03/30/24 *Time: 17:46 Interval history: Patient is seen and examined at bedside. I am accompanied by her nurse. The patient reports that she is breathing better and feeling better. Nursing staff report that she remains afebrile with stable vital signs and saturating ap propriately on 2 L of oxygen which is her typical/usual home requirement. Her labs identified improved leukocytoses with stable hemoglobin and normal platelets. Her electrolytes are normal and her creatinine 0.7. She inquired about going home. She lives with her son and his family in [place]. Exam Data for Last 24 hours Vital signs and Labs for Last 24 Hours: Temp Pulse Resp BP Pulse Ox O2 Del Method O2 Flow Rate 99.0 F 82 20 155/73 H 96 Nasal Cannula 2 03/30/24 16:00 03/30/24 16:00 03/30/24 16:00 03/30/24 16:00 03/30/24 16:00 03/30/24 16:00 03/30/24 16:00 Laboratory Results - last 24 hr 03/29/24 21:01: POC Glucose 163 H 03/30/24 06:00: Sodium 135 L, Potassium 3.6, Chloride 104, Carbon Dioxide 31 H, Anion Gap 3.6 L, BUN 19 H, Creatinine 0.70, Estimated Creat Clear 82, Estimated GFR 82, Est GFR ( Amer) 99, Glucose 120 H, Calcium 9.5, Magnesium 1.9 D, C-Reactive Protein 159.8 H, Procalcitonin 0.113 03/30/24 06:26: POC Glucose 117 H 03/30/24 07:12: WBC 5.5 D, RBC 4.22, Hgb 11.7 L, Hct 36.5 L, MCV 86.6, MCH 27.7, MCHC 32.0, RDW 16.0, Plt Count 171, MPV 7.7, Neut % (Auto) 75.6, Lymph % (Auto) 17.5, [place] % (Auto) 6.3, Eos % (Auto) 0.3, Baso % (Auto) 0.3, Neut # (Auto) 4.2, Lymph # (Auto) 1.0, [place] # (Auto) 0.4, Eos # (Auto) 0.0, Baso # (Auto) 0.0 03/30/24 11:00: POC Glucose 144 H 03/30/24 16:29: POC Glucose 123 H I & O for Last 24 hours: Intake & Output 03/27/24 03/28/24 03/29/24 03/30/24 23:59 23:59 23:59 23:59 Intake Total 100 / 340 1430 / 1550 1020 / 1020 Output Total 1500 / 1500 100 / 100 Balance 100 / 340 -70 / 50 920 / 920 Weight 105.642 kg 105.64 kg 105.097 kg Microbiology Reports for the Last 24 Hours: Microbiology 03/28/24 15:04 Blood Blood Culture - Preliminary NO GROWTH AFTER 48 HOURS 03/28/24 14:48 Blood Blood Culture - Preliminary NO GROWTH AFTER 48 HOURS 03/28/24 15:36 Urine,Clean Catch Urine Culture - Final Klebsiella pneumoniae Constitutional Constitutional: no acute distress, morbidly obese, chronically ill appearing and cooperative *Routine HEENT Exam Head: Present normocephalic and atraumatic Eye: Present EOMI and PERRL ENT: Present mucous membranes moist *Routine Neck Exam Neck: Absent JVD or lymphadenopathy *Routine Respiratory Exam Respiratory: Present rhonchi, normal respiratory effort and symmetric chest movement *Routine Cardiovascular Exam Cardiovascular: Present RRR *Routine Abdominal Exam Abdominal: Present soft and normoactive bowel sounds *Routine Extremities Exam Extremities: Present edema and full ROM *Routine Skin Exam Skin: Absent rash *Routine Neurological Exam Neurological: Present alert, oriented X3, moving all extremities, vision grossly intact, hearing grossly intact and normal speech; Absent sensory deficit or motor deficit Routine Psychiatric Exam Psychiatric: Present normal affect and cooperative Assessment and Plan *Assessment and plan (1) Sepsis: Status: Acute Category: Medical Code(s): A41.9 - Sepsis, unspecified organism (2) UTI (urinary tract infection): Status: Resolved Qualifiers: Hematuria presence: without hematuria Urinary tract infection type: site unspecified Qualified Code(s): N39.0 - Urinary tract infection, site not specified Category: Medical Code(s): N39.0 - Urinary tract infection, site not specified (3) Urinary incontinence: Status: Inactive Category: Medical Code(s): R32 - Unspecified urinary incontinence (4) Bacterial pneumonia: Status: Acute Category: Medical Code(s): J15.9 - Unspecified bacterial pneumonia (5) ERICKSON (obstructive sleep apnea): Problem Comment: Severe ERICKSON, chronic hypoxic respiratory failure, pulmonary hypertension, afib, morbidly obese, oxygen supplementation dependent without hypercapnia in June 2022. Compliant on BiPAP with O2. Increased drowsiness lately in the setting of difficulty with oxygen concentrator. Status: Inactive Category: Medical Code(s): G47.33 - Obstructive sleep apnea (adult) (pediatric) (6) Pulmonary HTN: Status: Inactive Category: Medical Code(s): I27.20 - Pulmonary hypertension, unspecified (7) Acute on chronic heart failure with preserved ejection fraction (HFpEF): Status: Acute Category: Medical Code(s): I50.33 - Acute on chronic diastolic (congestive) heart failure (8) Atrial fibrillation: Status: Inactive Qualifiers: Atrial fibrillation type: unspecified chronic Qualified Code(s): I48.20 - Chronic atrial fibrillation, unspecified Category: Medical Code(s): I48.91 - Unspecified atrial fibrillation (9) Diabetes mellitus: Problem Comment: type 2 non insulin dep Status: Chronic Qualifiers: Diabetes mellitus type: type 2 Diabetes mellitus complication status: with hyperglycemia Diabetes mellitus senior living insulin use: with senior living use Qualified Code(s): E11.65 - Type 2 diabetes mellitus with hyperglycemia Category: Medical Code(s): E11.9 - Type 2 diabetes mellitus without complications Plan 73-year-old female with coronary disease status post CABG 1996, paroxysmal atrial fibrillation, BMI 39, chronic hypoxic respiratory failure on home O22.5 Liters, ERICKSON who presents with weakness, metabolic encephalopathy and dyspnea. Problems addressed as follows: Sepsis, present on admission Febrile, tachypneic, leukocytoses, source identified IV fluid resuscitation with normal lactic acid Blood cultures no growth to date Urine culture with Klebsiella IV antibiotic therapy Klebsiella UTI Urine culture sensitivities reviewed Trending labs and inflammatory markers IV Merrem Bacterial pneumonia Pulse oximetry monitoring Oxygen therapy to maintain appropriate oxygen saturations Currently requiring home baseline oxygen 2 L via nasal cannula Chest x-ray with left lower lobe infiltrate Incentive spirometry Inhalation therapy ERICKSON/OHS/COPD overlap Chronic hypoxic respiratory failure Pulmonary hypertension BMI 39 Pulse oximetry monitoring Oxygen therapy NIPPV therapy Ashleigh/Paddy inhalation therapy ICS therapy Acute on chronic HFpEF (stage C/NYHA III) Coronary artery disease status post CABG Telemetry monitoring Echo (09/04/2023): EF 50 to 55% with RVSP 40 mmHg Accurate I's and O's Sodium and fluid restriction Routine weights Loop diuretic therapy Beta-pedro therapy SGLT2 inhibitor therapy held with UTI Statin therapy P2Y12 inhibitor therapy Outpatient follow-up with cardiology Atrial fibrillation Telemetry monitoring [id number]= 6 Beta-pedro therapy Factor Xa inhibitor therapy Diabetes Routine blood sugar monitoring Sliding scale insulin therapy Holding SGLT2 inhibitor therapy Outpatient GLP-1 agonist Consistent carbohydrate diet Hypothyroidism Levothyroxine replacement therapy The patient is hospitalized day 2 with above diagnoses complicated by her BMI of 39. Case management is assisting with discharge planning which is expected being home with family. Barriers to discharge currently include IV antibiotic therapy and assessing objective measures. Expected date of discharge 03/31/2024.
--- NOTE | 2024-03-30 18:28 | PC.NURSE ---
Addendum entered by Malinda Sim RN 03/30/24 18:32: glucose levels have not required insulin this shift. Original Note: pt is alert to self and is currently on baseline 2 LNC, tolerating well. she has been turned q2 this shift, and remained afebrile. she has rested most of the shift. no further requests at this time, call light within reach.
[2024-03-30 20:00] VITALS: BP 141/79; PULSE 70; RESP 18; TEMP 37.3; O2SAT 97
[2024-03-30] MEDS: ATORVASTATIN 40MG TABLET 40 MG PO (20:17)
[2024-03-30] MEDS: PANTOPRAZOLE 40MG TABLET 40 MG PO (20:18)
[2024-03-30 20:35] VITALS: O2SAT 92
[2024-03-30 20:43] LABS: POC Glucose,Bedside 138 (70-110)
[2024-03-31 04:00] VITALS: BP 108/73; PULSE 69; RESP 18; TEMP 36.7; O2SAT 97; BMI 39.2
[2024-03-31] MEDS: MEROPENEM 1 GM in 0.9 % SODIUM CHLORIDE 100 ML IV ×2 (04:33→12:24)
[2024-03-31] MEDS: LEVOTHYROXINE 50MCG (0.05MG) TAB 50 MCG PO (06:07)
[2024-03-31 06:17] LABS: POC Glucose,Bedside 117 (70-110)
[2024-03-31] MEDS: FLUTICASONE/SALMETEROL 500/50MCG DISKUS 1 PUFF IH (07:06)
[2024-03-31 07:07] VITALS: O2SAT 93
[2024-03-31 07:52] LABS: Basophils % 0.6 % (0.1-2.0); Eosinophils # 0.1 K/mm3 (0.0-0.4); Eosinophils % 1.3 % (0.1-12.0); Hematocrit 36.3 % (37.0-47.0); Hemoglobin 11.8 g/dL (12.2-16.2); Lymphocytes # 1.1 K/mm3 (0.7-4.5); Lymphocytes % 24.3 % (10-50); Mean Corpuscular HGB Conc 32.5 g/dL (31.8-35.4); Mean Corpuscular Hemoglobin 27.8 pg (27.0-31.2); Mean Corpuscular Volume 85.4 fl (81-99); Mean Platelet Volume 7.8 fl (7.4-10.4); Monocytes # 0.4 K/mm3 (0.1-1.0); Monocytes % 8.5 % (1.7-9.3); Neutrophils # 3.1 K/mm3 (1.8-7.8); Neutrophils % 65.2 % (37.0-80.0); Platelet Count 166 K/mm3 (142-424); Red Blood Count 4.25 M/mm3 (4.20-5.40); Red Cell Distribution Width 15.8 % (11.5-17.5); White Blood Count 4.7 K/mm3 (4.8-10.8)
[2024-03-31 07:57] LABS: Anion Gap 4.8 mEq/L (5-15); Blood Urea Nitrogen 18 mg/dl (7-17); Calcium 9.3 mg/dl (8.4-10.2); Carbon Dioxide 31 mmol/L (22.0-30.0); Chloride 102 mmol/L (98-107); Creatinine Clearance Estimated 83 mL/min (50-200); Estimated Glomerular Filt Rate 82 ml/min (>60); GFR (African American) 99 ML/MIN (>60); Glucose 126 mg/dl (74-100); Magnesium 1.9 mg/dl (1.6-2.3); Potassium 3.8 mmoL/L (3.5-5.1); Sodium 134 mmol/L (136-145)
[2024-03-31 08:00] VITALS: BP 131/72; PULSE 85; RESP 18; TEMP 36.8; O2SAT 93; O2SAT 97
[2024-03-31 08:01] LABS: C-Reactive Protein 126.6 mg/L (0-4)
[2024-03-31 08:13] LABS: Procalcitonin 0.099 ng/mL (0.0-2.0)
[2024-03-31] MEDS: APIXABAN 5MG TABLET 5 MG PO (08:26)
[2024-03-31] MEDS: BUSPIRONE HCL 5 MG TABLET PO (08:26)
[2024-03-31] MEDS: CHOLECALCIFEROL 1,000 UNITS (25MCG) TABLET 25 MCG PO (08:26)
[2024-03-31] MEDS: ASCORBIC ACID 500MG TAB 500 MG PO (08:26)
[2024-03-31] MEDS: GABAPENTIN 400MG CAPSULE 400 MG PO (08:27)
[2024-03-31] MEDS: CITALOPRAM 40MG TABLET 40 MG PO (08:27)
[2024-03-31] MEDS: FERROUS SULFATE 325MG TABLET 325 MG PO (08:27)
[2024-03-31] MEDS: METOCLOPRAMIDE 5MG TABLET 5 MG PO (08:27)
[2024-03-31] MEDS: ZINC SULFATE 220MG CAPSULE 220 MG PO (08:27)
[2024-03-31] MEDS: POLYETHYLENE GLYCOL 3350 17 GM PACKET PO (08:27)
[2024-03-31] MEDS: CLOPIDOGREL 75MG TAB 75 MG PO (08:27)
[2024-03-31] MEDS: HYDROCODONE 10MG/APAP 325MG TAB 0.5 TAB PO (08:30)
--- NOTE | 2024-03-31 09:10 | P.PN_ITS ---
Subjective *Date: 03/31/24 *Time: 09:10 Medical Exam Vital signs and Labs for Last 24 Hours: Vital Signs Temp Pulse Resp BP Pulse Ox O2 Del Method O2 Flow Rate 03/31/24 08:00 93 L Nasal Cannula 2 03/31/24 07:07 93 L Nasal Cannula 2 03/31/24 06:18 Nasal Cannula 2 03/31/24 05:00 Nasal Cannula 2 03/31/24 04:00 98.0 F 69 18 108/73 L 97 Nasal Cannula 2 03/31/24 02:48 Nasal Cannula 2 03/31/24 01:00 Nasal Cannula 2 03/30/24 23:00 Nasal Cannula 2 03/30/24 21:00 Nasal Cannula 2 03/30/24 20:35 92 L Room Air 03/30/24 20:00 Nasal Cannula 2 03/30/24 20:00 99.2 F 70 18 141/79 H 97 Nasal Cannula 2 03/30/24 18:52 Nasal Cannula 2 03/30/24 18:34 Nasal Cannula 2 03/30/24 17:00 Nasal Cannula 2 03/30/24 16:00 99.0 F 82 20 155/73 H 96 Nasal Cannula 2 03/30/24 14:59 Nasal Cannula 2 03/30/24 13:00 Nasal Cannula 2 03/30/24 11:00 Nasal Cannula 2 FiO2 03/31/24 08:00 03/31/24 07:07 03/31/24 06:18 03/31/24 05:00 03/31/24 04:00 03/31/24 02:48 03/31/24 01:00 03/30/24 23:00 03/30/24 21:00 03/30/24 20:35 03/30/24 20:00 03/30/24 20:00 03/30/24 18:52 28 03/30/24 18:34 03/30/24 17:00 03/30/24 16:00 03/30/24 14:59 03/30/24 13:00 03/30/24 11:00 Intake and Output 03/30/24 03/31/24 03/31/24 23:59 07:59 15:59 Intake Total 660 / 1680 450 / 450 Output Total 0 / 100 Balance 660 / 1580 450 / 450 Intake: Intake, Oral Amount 460 / 1380 450 / 450 Intake, Total IV Amount 200 / 300 Meropenem 1 gm In 0.9 % Sodium 200 / 300 Chloride 100 ml @ 100 mls/hr IV Q8H [facility] Rx#:[id number] Output: Output, Urine Amount 0 / 100 Other: Number of Unmeasured Voids 1 Number of Bowel Movements 1 1 Weight 106.651 kg Patient Weight 03/31/24 23:59 Weight 106.651 kg Laboratory Results - last 24 hr 03/30/24 11:00: POC Glucose 144 H 03/30/24 16:29: POC Glucose 123 H 03/30/24 20:24: POC Glucose 138 H 03/31/24 06:07: POC Glucose 117 H 03/31/24 07:25: WBC 4.7 L, RBC 4.25, Hgb 11.8 L, Hct 36.3 L, MCV 85.4, MCH 27.8, MCHC 32.5, RDW 15.8, Plt Count 166, MPV 7.8, Neut % (Auto) 65.2, Lymph % (Auto) 24.3, [place] % (Auto) 8.5, Eos % (Auto) 1.3, Baso % (Auto) 0.6, Neut # (Auto) 3.1, Lymph # (Auto) 1.1, [place] # (Auto) 0.4, Eos # (Auto) 0.1, Baso # (Auto) 0.0, Sodium 134 L, Potassium 3.8, Chloride 102, Carbon Dioxide 31 H, Anion Gap 4.8 L, BUN 18 H, Creatinine 0.70, Estimated Creat Clear 83, Estimated GFR 82, Est GFR ( Amer) 99, Glucose 126 H, Calcium 9.3, Magnesium 1.9, C-Reactive Protein 126.6 H, Procalcitonin 0.099 I & O for Labs for Last 24 Hours: Intake & Output 03/28/24 03/29/24 03/30/24 03/31/24 23:59 23:59 23:59 23:59 Intake Total 100 / 340 1430 / 1550 1680 / 1680 450 / 450 Output Total 1500 / 1500 100 / 100 Balance 100 / 340 -70 / 50 1580 / 1580 450 / 450 Weight 105.642 kg 105.64 kg 105.097 kg 106.651 kg Microbiology Reports for the Last 24 Hours: Microbiology 03/28/24 15:04 Blood Blood Culture - Preliminary NO GROWTH AFTER 48 HOURS 03/28/24 14:48 Blood Blood Culture - Preliminary NO GROWTH AFTER 48 HOURS 03/28/24 15:36 Urine,Clean Catch Urine Culture - Final Klebsiella pneumoniae The patient's infection will respond to the chosen ABx?: Yes Is the patient receiving the right drug, dose, and route?: Yes Could a more targeted ABx be ordered?: No (URINE CX GROWING KLEBSIELLA SENSITIVE TO MERREM)
[2024-03-31 11:20] LABS: POC Glucose,Bedside 220 (70-110)
[2024-03-31] MEDS: humaLOG 100 UNITS/ML 10ML VIAL (SSI) SQ (11:21)
--- NOTE | 2024-03-31 11:50 | P.DS_ITS ---
General Admission date:: 03/28/24 Discharge date: 03/31/24 HPI HPI HPI: 73-year-old female patient with past medical history of diastolic heart failure, atrial fibrillation, urinary retention sees Dr. Gonzalez urologist, diabetes, hypertension, hyperlipidemia, acute on chronic weakness. Patient presents with febrile illness, altered mental status, weakness starting this a.m. Cxurnstf-ri-djt states patient unable to ambulate normally, or put on her depends without assistance. Rwzfncae-ij-dpq states that it takes herself, her son, and her to help patient with activities of daily living and she normally is not that week. Mumxfubs-sy-qfa also states patient suffered from orange liquid like emesis this a.m. Patient disoriented to current events, time, location per ifsktvnj-nl-xji prior to arrival to hospital. Patient given IV Rocephin in emergency room prior to Dr. Martins's evaluation. Patient's temperature in emergency room 102 Fahrenheit. After IV Rocephin patient oriented to location, current events, and mejeafqq-bt-aqp's face. Denies chest pain, shortness of breath, abdominal pain, diarrhea/constipation. Patient sees Dr. Taylor, urologist for urinary retention. Patient has been on prophylactic antibiotic nitrofurantoin for past 3 months. Last hospitalization August [facility], with patient sent to short-term rehab for 19 days after hospitalization. Patient on daily Bumex for heart failure management. Patient uses 2 to 2-1/2 L oxygen chronically at home at baseline. Patient on 2 L oxygen at time evaluation by Dr. Martins in emergency room. Xqdwkojt-iz-vos also states patient uses BiPAP nocturnal at baseline. Hospital Course Hospital Course Hospital Course: The patient was admitted to the telemetry unit with routine vitals, oxygen supplementation and inhalation therapy. Imaging, labs, cultures and inflammatory markers were assessed and trended. Her urine culture identified Klebsiella pneumonia and her IV antibiotic therapy was adjusted. She continued with respiratory support and ACC guided therapy for her acute on chronic HFpEF presentation. She was maintained on anticoagulation therapy for her history of atrial fibrillation. Over a 3-day hospital stay the patient identified improvement and requested to be discharged home. We recommended transition to SNF and the patient declined. She reported that she has plenty of family help at home. We recommended completing a course of oral antibiotic therapy with PCP and urology follow-up. She understands the importance of following up with other consultants as recommended. I spent 35 minutes in qrto-bn-qezd time with the patient and nursing staff (Bettie) concerning the discharge process. We discussed the admitting diagnoses and hospital course. We discussed identified improvement and the patient's desire to be discharged. We reviewed inpatient studies and imaging. The patient voiced understanding on the importance of follow-up with her primary care provider and specialist(s). The patient plans to be compliant with the medication regimen prescribed and follow-up appo intments. She understands that she can return to the emergency department with any sudden changes or concerns. Exam Data for Last 24 hours Vital signs and Labs for Last 24 Hours: Temp Pulse Resp BP Pulse Ox O2 Del Method O2 Flow Rate 98.3 F 85 18 131/72 97 Nasal Cannula 2 03/31/24 08:00 03/31/24 08:00 03/31/24 08:00 03/31/24 08:00 03/31/24 08:00 03/31/24 11:00 03/31/24 11:00 FiO2 28 03/30/24 18:52 Laboratory Results - last 24 hr 03/30/24 16:29: POC Glucose 123 H 03/30/24 20:24: POC Glucose 138 H 03/31/24 06:07: POC Glucose 117 H 03/31/24 07:25: WBC 4.7 L, RBC 4.25, Hgb 11.8 L, Hct 36.3 L, MCV 85.4, MCH 27.8, MCHC 32.5, RDW 15.8, Plt Count 166, MPV 7.8, Neut % (Auto) 65.2, Lymph % (Auto) 24.3, [place] % (Auto) 8.5, Eos % (Auto) 1.3, Baso % (Auto) 0.6, Neut # (Auto) 3.1, Lymph # (Auto) 1.1, [place] # (Auto) 0.4, Eos # (Auto) 0.1, Baso # (Auto) 0.0, Sodium 134 L, Potassium 3.8, Chloride 102, Carbon Dioxide 31 H, Anion Gap 4.8 L, BUN 18 H, Creatinine 0.70, Estimated Creat Clear 83, Estimated GFR 82, Est GFR ( Amer) 99, Glucose 126 H, Calcium 9.3, Magnesium 1.9, C-Reactive Protein 126.6 H, Procalcitonin 0.099 03/31/24 11:12: POC Glucose 220 H I & O for Last 24 hours: Intake & Output 03/28/24 03/29/24 03/30/24 03/31/24 23:59 23:59 23:59 23:59 Intake Total 100 / 340 1430 / 1550 1680 / 1680 550 / 550 Output Total 1500 / 1500 100 / 100 Balance 100 / 340 -70 / 50 1580 / 1580 550 / 550 Weight 105.642 kg 105.64 kg 105.097 kg 106.651 kg Microbiology Reports for the Last 24 Hours: Microbiology 03/28/24 15:04 Blood Blood Culture - Preliminary NO GROWTH AFTER 48 HOURS 03/28/24 14:48 Blood Blood Culture - Preliminary NO GROWTH AFTER 48 HOURS Constitutional Constitutional: no acute distress, morbidly obese, chronically ill appearing and cooperative *Routine HEENT Exam Head: Present normocephalic and atraumatic Eye: Present EOMI and PERRL ENT: Present mucous membranes moist *Routine Neck Exam Neck: Absent JVD or lymphadenopathy *Routine Respiratory Exam Respiratory: Present rhonchi, normal respiratory effort and symmetric chest movement *Routine Cardiovascular Exam Cardiovascular: Present RRR *Routine Abdominal Exam Abdominal: Present soft and normoactive bowel sounds *Routine Extremities Exam Extremities: Present edema and full ROM *Routine Skin Exam Skin: Absent rash *Routine Neurological Exam Neurological: Present alert, oriented X3, moving all extremities, vision grossly intact, hearing grossly intact and normal speech; Absent sensory deficit or motor deficit Routine Psychiatric Exam Psychiatric: Present normal affect and cooperative Results Data Completed and Pending Labs on day of discharge: Labs from last 24 hours 03/31/24 03/31/24 03/31/24 11:12 07:25 06:07 WBC 4.7 L RBC 4.25 Hgb 11.8 L Hct 36.3 L MCV 85.4 MCH 27.8 MCHC 32.5 RDW 15.8 Plt Count 166 MPV 7.8 Neut % (Auto) 65.2 Lymph % (Auto) 24.3 [place] % (Auto) 8.5 Eos % (Auto) 1.3 Baso % (Auto) 0.6 Neut # (Auto) 3.1 Lymph # (Auto) 1.1 [place] # (Auto) 0.4 Eos # (Auto) 0.1 Baso # (Auto) 0.0 Sodium 134 L Potassium 3.8 Chloride 102 Carbon Dioxide 31 H Anion Gap 4.8 L BUN 18 H Creatinine 0.70 Estimated Creat Clear 83 Estimated GFR 82 Est GFR ( Amer) 99 Glucose 126 H POC Glucose 220 H 117 H Calcium 9.3 Magnesium 1.9 C-Reactive Protein 126.6 H Procalcitonin 0.099 03/30/24 03/30/24 20:24 16:29 WBC RBC Hgb Hct MCV MCH MCHC RDW Plt Count MPV Neut % (Auto) Lymph % (Auto) [place] % (Auto) Eos % (Auto) Baso % (Auto) Neut # (Auto) Lymph # (Auto) [place] # (Auto) Eos # (Auto) Baso # (Auto) Sodium Potassium Chloride Carbon Dioxide Anion Gap BUN Creatinine Estimated Creat Clear Estimated GFR Est GFR ( Amer) Glucose POC Glucose 138 H 123 H Calcium Magnesium C-Reactive Protein Procalcitonin Preliminary micro results at discharge 03/28/24 15:04 Blood Culture - Preliminary Blood NO GROWTH AFTER 48 HOURS 03/28/24 14:48 Blood Culture - Preliminary Blood NO GROWTH AFTER 48 HOURS DS: Diagnosis Discharge Diagnosis (1) Sepsis: Status: Acute Code(s): A41.9 - Sepsis, unspecified organism (2) UTI (urinary tract infection): Status: Resolved Code(s): N39.0 - Urinary tract infection, site not specified Qualifiers: Hematuria presence: without hematuria Urinary tract infection type: site unspecified Qualified Code(s): N39.0 - Urinary tract infection, site not specified (3) Urinary incontinence: Status: Inactive Code(s): R32 - Unspecified urinary incontinence (4) Bacterial pneumonia: Status: Acute Code(s): J15.9 - Unspecified bacterial pneumonia (5) ERICKSON (obstructive sleep apnea): Status: Inactive Code(s): G47.33 - Obstructive sleep apnea (adult) (pediatric) Problem details: Severe ERICKSON, chronic hypoxic respiratory failure, pulmonary hypertension, afib, morbidly obese, oxygen supplementation dependent without hypercapnia in June 2022. Compliant on BiPAP with O2. Increased drowsiness lately in the setting of difficulty with oxygen concentrator. (6) Pulmonary HTN: Status: Inactive Code(s): I27.20 - Pulmonary hypertension, unspecified (7) Acute on chronic heart failure with preserved ejection fraction (HFpEF): Status: Acute Code(s): I50.33 - Acute on chronic diastolic (congestive) heart failure (8) Atrial fibrillation: Status: Inactive Code(s): I48.91 - Unspecified atrial fibrillation Qualifiers: Atrial fibrillation type: unspecified chronic Qualified Code(s): I48.20 - Chronic atrial fibrillation, unspecified (9) Diabetes mellitus: Status: Chronic Code(s): E11.9 - Type 2 diabetes mellitus without complications Qualifiers: Diabetes mellitus complication status: with hyperglycemia Diabetes mellitus terminal worker insulin use: with terminal worker use Diabetes mellitus type: type 2 Qualified Code(s): E11.65 - Type 2 diabetes mellitus with hyperglycemia Problem details: type 2 non insulin dep Meds Home Medications and Allergies Home Medications ?Medication ?Instructions ?Recorded ?Confirmed ?Type ascorbic acid (vitamin C) 500 mg 500 mg PO DAILY 09/26/23 03/28/24 History tablet (Vitamin C) bisoprolol fumarate 5 mg tablet 2.5 mg PO DAILY 09/26/23 03/29/24 History buspirone 5 mg tablet 5 mg PO DAILY 09/26/23 03/28/24 History citalopram 40 mg tablet 40 mg PO DAILY 09/26/23 03/28/24 History clopidogrel 75 mg tablet 75 mg PO DAILY 09/26/23 03/28/24 History ferrous sulfate 325 mg (65 mg 325 mg PO DAILY 09/26/23 03/28/24 History iron) tablet (iron) icosapent ethyl 1 gram capsule 2 g PO BID 09/26/23 03/28/24 History levothyroxine 50 mcg tablet 50 mcg PO DAILY 09/26/23 03/28/24 History multivitamin 1 tab PO DAILY 09/26/23 03/28/24 History omeprazole 20 mg capsule,delayed 20 mg PO DAILY 09/26/23 03/28/24 History release polyethylene glycol 3350 17 gram 17 g PO DAILY 09/26/23 03/28/24 History oral powder packet (Miralax) zinc 50 mg tablet 50 mg PO DAILY 09/26/23 03/28/24 History acetaminophen 500 mg tablet 500 mg PO Q6H PRN Pain (Scale 09/27/23 03/28/24 History Score 1-3) cholecalciferol (vitamin D3) 25 1,000 unit PO BID 09/27/23 03/28/24 History mcg (1,000 unit) capsule ondansetron HCl 8 mg tablet 8 mg PO Q12H PRN nausea and 10/03/23 03/28/24 Rx vomiting #30 tabs atorvastatin 40 mg tablet 40 mg PO HS #90 tabs 10/04/23 03/28/24 Rx blood-glucose meter #1 ea 10/16/23 03/28/24 Rx fluticasone furoate 200 1 inh inhalation DAILY 90 days #90 10/16/23 03/28/24 Rx mcg-vilanterol 25 mcg/dose ea inhalation powder (Breo Ellipta) ipratropium 0.5 mg-albuterol 3 mg 3 ml inhalation QID PRN shortness 10/16/23 03/28/24 Rx (2.5 mg base)/3 mL nebulization of breath or wheezing 90 days #270 soln mL apixaban 5 mg tablet (Eliquis) See Rx Instructions .Route 01/03/24 03/28/24 Rx .COMPLEX #90 tabs albuterol sulfate 90 mcg/actuation 2 inh inhalation QID PRN shortness 01/29/24 03/28/24 Rx aerosol inhaler of breath or wheezing 90 days #8.5 grams gabapentin 400 mg capsule 400 mg PO BID #60 caps 01/29/24 03/28/24 Rx hydrocodone 10 mg-acetaminophen 0.5 tab PO BID #30 tabs 02/28/24 03/28/24 Rx 325 mg tablet cranberry 500 mg capsule 500 mg PO BID 03/08/24 03/28/24 History bumetanide 1 mg tablet 1 mg PO DAILY 03/28/24 03/29/24 History insulin aspar prot-insulin aspart 10 unit SQ NEEDED PRN blood 03/28/24 03/29/24 History 100 unit/mL (70-30) subcutaneous sugar over 250 pen (Novolog Mix 70-30FlexPen U-100) dulaglutide 0.75 mg/0.5 mL 0.75 mg SQ WEEKLY 03/29/24 03/29/24 History subcutaneous pen injector (Trulicity) meclizine 25 mg tablet 25 mg PO BIDP PRN Dizziness Or 03/29/24 03/29/24 History Vertigo metoclopramide HCl 5 mg tablet 5 mg PO BID 03/29/24 03/29/24 History cefuroxime axetil 500 mg tablet 500 mg PO BID #6 tabs 03/31/24 Rx New Prescriptions to Start Prescriptions: cefuroxime axetil Jignesh Cornelius Allergies Allergy/AdvReac Type Severity Reaction Status Date / Time Iodinated Contrast Media Allergy Intermediate Hives Verified 03/28/24 17:52 [Iodinated Contrast Media - IV Dye] celecoxib [From CELEBREX] Allergy Unknown SWELLING Verified 03/28/24 17:52 ibuprofen [IBUPROFEN] Allergy Unknown S-BLISTERING Verified 03/28/24 17:52 WELTS meloxicam [MELOXICAM] Allergy Unknown S-BLISTERING Verified 03/28/24 17:52 WELTS Penicillins [PENICILLINS] Allergy Unknown I-HIVES Verified 03/28/24 17:52 rofecoxib [From VIOXX] Allergy Unknown I-HIVES Verified 03/28/24 17:52 Discharge Plan Disposition Patient Disposition: Home, Self-Care Condition: Fair Follow up Plan Follow up with: Adonis Chavez PA [Physician Payroll And Benefits Coordinator] - 1 month Hilary Bagley PA [Physician Payroll And Benefits Coordinator] - 1 week Arturo Taylor MD [Staff Physician] - 2 weeks Jennie Vieyra MD [Physician] - 1 month Prescriptions/Medication Reconciliation: New cefuroxime axetil 500 mg tablet 500 mg PO BID Qty: 6 0RF Continued ipratropium-albuterol 0.5 mg-3 mg(2.5 mg base)/3 mL solution for nebulization 3 ml inhalation QID PRN (Reason: shortness of breath or wheezing) 90 Days Qty: 270 3RF fluticasone furoate-vilanterol [Breo Ellipta] 200-25 mcg/dose blister with device 1 inh inhalation DAILY 90 Days Qty: 90 2RF gabapentin 400 mg capsule 400 mg PO BID Qty: 60 1RF albuterol sulfate 90 mcg/actuation HFA aerosol inhaler 2 inh inhalation QID PRN (Reason: shortness of breath or wheezing) 90 Days Qty: 8.5 3RF ondansetron HCl 8 mg tablet 8 mg PO Q12H PRN (Reason: nausea and vomiting) Qty: 30 0RF atorvastatin 40 mg tablet 40 mg PO HS Qty: 90 1RF Patient Comments: TAKE 1 TABLET 1 TIME EACH DAY AT BEDTIME (DME) blood-glucose meter Kit See Rx Instructions .ROUTE .MEDSUPPLY Qty: 1 0RF Rx Instructions: As directed or bid Whatever Insurance will pay for with test strips and lancets Eliquis 5 mg tablet See Rx Instructions .ROUTE .COMPLEX Qty: 90 3RF Dose Instruction: TAKE 1 TABLET 2 TIMES EACH DAY Rx Instructions: TAKE 1 TABLET 2 TIMES EACH DAY hydrocodone-acetaminophen 10-325 mg tablet 0.5 tab PO BID Qty: 30 0RF cranberry 500 mg Capsule 500 mg PO BID Rx Instructions: administer with meals bumetanide 1 mg tablet 1 mg PO DAILY insulin asp prt-insulin aspart [Novolog Mix 70-30FlexPen U-100] 100 unit/mL (70-30) Insulin Pen 10 unit SQ NEEDED PRN (Reason: blood sugar over 250 ) metoclopramide HCl 5 mg tablet 5 mg PO BID Rx Instructions: TAKE 1 TABLET 2 TIMES EACH DAY FOR STOMACH meclizine 25 mg tablet 25 mg PO BIDP PRN (Reason: Dizziness Or Vertigo) Rx Instructions: TAKE 1 TABLET 2 TIMES EACH DAY NEEDED FOR DIZZINESS OR VERTIGO Trulicity 0.75 mg/0.5 mL pen injector 0.75 mg SQ WEEKLY Rx Instructions: INJECT THE CONTENTS OF 1 SYRINGE UNDER THE SKIN 1 TIME EACH WEEK buspirone 5 mg tablet 5 mg PO DAILY Patient Comments: TAKE 1 TABLET 1 TIME EACH DAY FOR ANXIETY citalopram 40 mg tablet 40 mg PO DAILY Patient Comments: TAKE 1 TABLET 1 TIME EACH DAY FOR DEPRESSION clopidogrel 75 mg tablet 75 mg PO DAILY Patient Comments: TAKE 1 TABLET 1 TIME EACH DAY FOR HEART DISEASE bisoprolol fumarate 5 mg tablet 2.5 mg PO DAILY Patient Comments: TAKE 1 TABLET 1 TIME EACH DAY levothyroxine 50 mcg tablet 50 mcg PO DAILY Patient Comments: TAKE 1 TABLET 1 TIME EACH DAY FOR THYROID omeprazole 20 mg capsule,delayed release(DR/EC) 20 mg PO DAILY Patient Comments: TAKE 1 CAPSULE 1 TIME EACH DAY FOR REFLUX multivitamin Tablet 1 tab PO DAILY polyethylene glycol 3350 [Miralax] 17 gram Powder In Packet 17 g PO DAILY ascorbic acid (vitamin C) [Vitamin C] 500 mg Tablet 500 mg PO DAILY ferrous sulfate [iron] 325 mg (65 mg iron) Tablet 325 mg PO DAILY zinc 50 mg Tablet 50 mg PO DAILY icosapent ethyl 1 gram Capsule 2 g PO BID acetaminophen 500 mg Tablet 500 mg PO Q6H PRN (Reason: Pain (Scale Score 1-3)) cholecalciferol (vitamin D3) 25 mcg (1,000 unit) Capsule 1,000 unit PO BID Discontinued nitrofurantoin macrocrystal [Macrodantin] 100 mg capsule 100 mg PO HS 30 Days Qty: 30 0RF Rx Instructions: must administer with a meal/food Problem Reconciliation Problems Reviewed?: Yes Patient Discharge Instructions ACTIVITY: Ambulate as tolerated DIET: advance to your usual diet Patient Instructions: Pneumonia-Adult, Heart Failure, Sepsis Print Language: Kazakh Providers Primary Care Provider: Provider,Referral Admit Provider: Gee Martins Attending Provider: Gee Martins
--- NOTE | 2024-04-01 16:28 | SW/DCPLANNER ---
Hospital follow up phone call: patient's daughter stated that patient is still very weak at home. I informed patient's daughter that all four home health agencies in her area have denied her services. I explained different options regarding outpatient PT in [place] vs rehab placement. Daughter stated that she would like to speak w/ patient and her then will contact me back tomorrow. I did update patient's PCP Haily Bagley.
== END 2024-03-31 17:02 | disposition home health service (06) ==
LOC: ER 16:31 → 2ND 03-29 06:05
PROVIDERS: Emergency Medicine; Admitting Provider Internal Medicine; Emergency Provider Emergency Medicine; Visit Provider Internal Medicine
DX: R41.82 Altered mental status, unspecified (principal); R62.7 Adult failure to thrive; I50.30 Unspecified diastolic (congestive) heart failure; R31.9 Hematuria, unspecified; N39.0 Urinary tract infection, site not specified; E11.40 Type 2 diabetes mellitus with diabetic neuropathy, unspecified; Z79.4 Long term (current) use of insulin; J96.01 Acute respiratory failure with hypoxia; J96.02 Acute respiratory failure with hypercapnia; E03.9 Hypothyroidism, unspecified; E11.65 Type 2 diabetes mellitus with hyperglycemia; I48.0 Paroxysmal atrial fibrillation; I89.0 Lymphedema, not elsewhere classified; N39.41 Urge incontinence; J44.9 Chronic obstructive pulmonary disease, unspecified; G47.33 Obstructive sleep apnea (adult) (pediatric); K21.9 Gastro-esophageal reflux disease without esophagitis; I11.0 Hypertensive heart disease with heart failure; E78.5 Hyperlipidemia, unspecified; D72.829 Elevated white blood cell count, unspecified; Z79.899 Other long term (current) drug therapy; E66.01 Morbid (severe) obesity due to excess calories; Z68.39 Body mass index [BMI] 39.0-39.9, adult
CPT/HCPCS: 36415; 70450; 71045; 80048; 80053; 81001; 82803; 82962; 83605; 83735; 83880; 84145; 84484; 85007; 85025; 85027; 86140; 87040; 87086; 87088; 87186; 93005; 94640; 94761; 97110; 97163; 97166; 97530; 99285; G0378; J0696; J1939; J2185

== ENCOUNTER 2024-05-10 18:38 | Emergency (ER) | payer MEDICARE, MEDICAID, SELFPAY ==
[2024-05-10 18:38] VITALS: BP 169/76; PULSE 70; RESP 16; TEMP 36.6; O2SAT 93; BMI 38.2
--- NOTE | 2024-05-10 18:38 | XR_ITS ---
PROCEDURE INFORMATION: Exam: XR Chest Exam date and time: 05/10/2024 7:03 PM Age: 74 years old Clinical indication: Pain; Chest pressure; Additional info: Chest pain TECHNIQUE: Imaging protocol: Radiologic exam of the chest. Views: 1 view. COMPARISON: CR XR CHEST PORTABLE 03/28/2024 3:39 PM FINDINGS: Lungs: Low lung volumes with bronchovascular crowding versus pulmonary vascular congestion. Chronic minimal left mid lung scarring and blunting of the left lateral costophrenic angle. Pleural spaces: No large pleural effusion. No pneumothorax. Heart/Mediastinum: No cardiomegaly. Calcified atherosclerotic changes of the thoracic aorta. Bones/joints: Median sternotomy. IMPRESSION: Low lung volumes with bronchovascular crowding versus pulmonary vascular congestion.
--- NOTE | 2024-05-10 18:42 | HMH.EDGENADL ---
Discharge Plan Disposition Patient Disposition: Home, Self-Care Condition: Good Prescriptions Prescriptions: No Action ipratropium-albuterol 0.5 mg-3 mg(2.5 mg base)/3 mL solution for nebulization 3 ml inhalation QID PRN (Reason: shortness of breath or wheezing) 90 Days Qty: 270 3RF fluticasone furoate-vilanterol [Breo Ellipta] 200-25 mcg/dose blister with device 1 inh inhalation DAILY 90 Days Qty: 90 2RF sulfamethoxazole-trimethoprim [Bactrim] 400-80 mg tablet 1 tab PO DAILY 30 Days Qty: 30 1RF albuterol sulfate 90 mcg/actuation HFA aerosol inhaler 2 inh inhalation QID PRN (Reason: shortness of breath or wheezing) 90 Days Qty: 8.5 3RF gabapentin 400 mg capsule 400 mg PO BID Qty: 60 1RF hydrocodone-acetaminophen 10-325 mg tablet 0.5 tab PO BID PRN (Reason: pain) Qty: 30 0RF ondansetron HCl 8 mg tablet 8 mg PO Q12H PRN (Reason: nausea and vomiting) Qty: 30 0RF (DME) blood-glucose meter Kit See Rx Instructions .ROUTE .MEDSUPPLY Qty: 1 0RF Rx Instructions: As directed or bid Whatever Insurance will pay for with test strips and lancets Eliquis 5 mg tablet See Rx Instructions .ROUTE .COMPLEX Qty: 90 3RF Dose Instruction: TAKE 1 TABLET 2 TIMES EACH DAY Rx Instructions: TAKE 1 TABLET 2 TIMES EACH DAY atorvastatin 40 mg tablet 40 mg PO HS Qty: 90 1RF Patient Comments: TAKE 1 TABLET 1 TIME EACH DAY AT BEDTIME bumetanide 1 mg tablet See Rx Instructions .ROUTE .COMPLEX Qty: 180 3RF Dose Instruction: TAKE 1 TABLET AT 8 AM AND TAKE 1 TABLET AT 2 PM Rx Instructions: TAKE 1 TABLET AT 8 AM AND TAKE 1 TABLET AT 2 PM bisoprolol fumarate 5 mg tablet 2.5 mg PO DAILY Qty: 90 1RF omeprazole 20 mg capsule,delayed release(DR/EC) See Rx Instructions .ROUTE .COMPLEX Qty: 90 3RF Dose Instruction: TAKE 1 CAPSULE 1 TIME EACH DAY FOR REFLUX Rx Instructions: TAKE 1 CAPSULE 1 TIME EACH DAY FOR REFLUX metoclopramide HCl 5 mg tablet See Rx Instructions .ROUTE .COMPLEX Qty: 180 0RF Dose Instruction: TAKE 1 TABLET 2 TIMES EACH DAY FOR STOMACH Rx Instructions: TAKE 1 TABLET 2 TIMES EACH DAY FOR STOMACH cranberry 500 mg Capsule 500 mg PO BID Rx Instructions: administer with meals insulin asp prt-insulin aspart [Novolog Mix 70-30FlexPen U-100] 100 unit/mL (70-30) Insulin Pen 10 unit SQ NEEDED PRN (Reason: blood sugar over 250 ) meclizine 25 mg tablet 25 mg PO BIDP PRN (Reason: Dizziness Or Vertigo) Rx Instructions: TAKE 1 TABLET 2 TIMES EACH DAY NEEDED FOR DIZZINESS OR VERTIGO Trulicity 0.75 mg/0.5 mL pen injector 0.75 mg SQ WEEKLY Rx Instructions: INJECT THE CONTENTS OF 1 SYRINGE UNDER THE SKIN 1 TIME EACH WEEK cefuroxime axetil 500 mg tablet 500 mg PO BID Qty: 6 0RF buspirone 5 mg tablet 5 mg PO DAILY Patient Comments: TAKE 1 TABLET 1 TIME EACH DAY FOR ANXIETY citalopram 40 mg tablet 40 mg PO DAILY Patient Comments: TAKE 1 TABLET 1 TIME EACH DAY FOR DEPRESSION clopidogrel 75 mg tablet 75 mg PO DAILY Patient Comments: TAKE 1 TABLET 1 TIME EACH DAY FOR HEART DISEASE levothyroxine 50 mcg tablet 50 mcg PO DAILY Patient Comments: TAKE 1 TABLET 1 TIME EACH DAY FOR THYROID multivitamin Tablet 1 tab PO DAILY polyethylene glycol 3350 [Miralax] 17 gram Powder In Packet 17 g PO DAILY ascorbic acid (vitamin C) [Vitamin C] 500 mg Tablet 500 mg PO DAILY ferrous sulfate [iron] 325 mg (65 mg iron) Tablet 325 mg PO DAILY zinc 50 mg Tablet 50 mg PO DAILY icosapent ethyl 1 gram Capsule 2 g PO BID acetaminophen 500 mg Tablet 500 mg PO Q6H PRN (Reason: Pain (Scale Score 1-3)) cholecalciferol (vitamin D3) 25 mcg (1,000 unit) Capsule 1,000 unit PO BID Referrals Follow up/Referrals: Hilary Bagley PA [Primary Care Provider] - See instructions Activity Restrictions/Add. Instructions Additional Instructions/Restrictions: You were evaluated in the emergency department today. 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 Return to the emergency department for new or worsening symptoms Clinical Impressions Clinical Impression: Anterior chest wall pain Instructions Patient Instructions: DI for Atypical Chest Pain, DI for Costochondritis Print Language Print Language: [place] Discharge ED Provider: Yisel Benito General Adult HPI General Chief complaint: Chest Pain Stated complaint: CHEST PAIN Time Seen by Provider: 05/10/24 18:38 Mode of Arrival: EMS Source of Information: Patient Limitations: No Limitations Description of Symptoms (Recalled from ER Triage Doc. by RN): Patient reports midsternal chest pain that began after going to the grocery store today. States it hurts more if you touch it. Denies any other symptoms at this time. History of Present Illness HPI narrative: This patient is a 74-year-old female with a history of obesity, CAD, COPD, type 2 diabetes, CHF, hypothyroidism, atrial fibrillation on Eliquis, GERD, smoking history, and chronic and recurrent chest pain presenting to the emergency department by EMS with concern for chest pain. Patient states that after going to the grocery store today, she started having midsternal chest pain that was nonradiating. She states it is worse with movement, deep breaths, coughing, and palpation. She states her chest is extremely tender. EMS arrived with the patient and noted that she was due for a neb just prior to their arrival and she was a little bit tight, so they gave her a neb en route. Otherwise, her vitals were stable Related Data Home Medications ?Medication ?Instructions ?Recorded ?Confirmed ascorbic acid (vitamin C) 500 mg 500 mg PO DAILY 09/26/23 04/08/24 tablet (Vitamin C) buspirone 5 mg tablet 5 mg PO DAILY 09/26/23 04/08/24 citalopram 40 mg tablet 40 mg PO DAILY 09/26/23 04/08/24 clopidogrel 75 mg tablet 75 mg PO DAILY 09/26/23 04/08/24 ferrous sulfate 325 mg (65 mg 325 mg PO DAILY 09/26/23 04/08/24 iron) tablet (iron) icosapent ethyl 1 gram capsule 2 g PO BID 09/26/23 04/08/24 levothyroxine 50 mcg tablet 50 mcg PO DAILY 09/26/23 04/08/24 multivitamin 1 tab PO DAILY 09/26/23 04/08/24 polyethylene glycol 3350 17 gram 17 g PO DAILY 09/26/23 04/08/24 oral powder packet (Miralax) zinc 50 mg tablet 50 mg PO DAILY 09/26/23 04/08/24 acetaminophen 500 mg tablet 500 mg PO Q6H PRN Pain (Scale 09/27/23 04/08/24 Score 1-3) cholecalciferol (vitamin D3) 25 1,000 unit PO BID 09/27/23 04/08/24 mcg (1,000 unit) capsule cranberry 500 mg capsule 500 mg PO BID 03/08/24 04/08/24 insulin aspar prot-insulin aspart 10 unit SQ NEEDED PRN blood 03/28/24 04/08/24 100 unit/mL (70-30) subcutaneous sugar over 250 pen (Novolog Mix 70-30FlexPen U-100) dulaglutide 0.75 mg/0.5 mL 0.75 mg SQ WEEKLY 03/29/24 04/08/24 subcutaneous pen injector (Trulicity) meclizine 25 mg tablet 25 mg PO BIDP PRN Dizziness Or 03/29/24 04/08/24 Vertigo Previous Rx's ?Medication ?Instructions ?Recorded ondansetron HCl 8 mg tablet 8 mg PO Q12H PRN nausea and 10/03/23 vomiting #30 tabs blood-glucose meter #1 ea 10/16/23 fluticasone furoate 200 1 inh inhalation DAILY 90 days #90 10/16/23 mcg-vilanterol 25 mcg/dose ea inhalation powder (Breo Ellipta) ipratropium 0.5 mg-albuterol 3 mg 3 ml inhalation QID PRN shortness 10/16/23 (2.5 mg base)/3 mL nebulization of breath or wheezing 90 days #270 soln mL apixaban 5 mg tablet (Eliquis) See Rx Instructions .Route 01/03/24 .COMPLEX #90 tabs albuterol sulfate 90 mcg/actuation 2 inh inhalation QID PRN shortness 01/29/24 aerosol inhaler of breath or wheezing 90 days #8.5 grams cefuroxime axetil 500 mg tablet 500 mg PO BID #6 tabs 03/31/24 gabapentin 400 mg capsule 400 mg PO BID #60 caps 04/02/24 hydrocodone 10 mg-acetaminophen 0.5 tab PO BID PRN pain #30 tabs 04/02/24 325 mg tablet atorvastatin 40 mg tablet 40 mg PO HS #90 tabs 04/03/24 sulfamethoxazole 400 1 tab PO DAILY 30 days #30 tabs 04/08/24 mg-trimethoprim 80 mg tablet (Bactrim) bisoprolol fumarate 5 mg tablet 2.5 mg (1/2 x 5 mg) PO DAILY #90 05/06/24 tabs bumetanide 1 mg tablet See Rx Instructions .Route 05/06/24 .COMPLEX #180 tabs omeprazole 20 mg capsule,delayed See Rx Instructions .Route 05/06/24 release .COMPLEX #90 caps metoclopramide HCl 5 mg tablet See Rx Instructions .Route 05/08/24 .COMPLEX #180 tabs Allergies Allergy/AdvReac Type Severity Reaction Status Date / Time Iodinated Contrast Media Allergy Intermediate Hives Verified 04/08/24 10:38 [Iodinated Contrast Media - IV Dye] celecoxib [From CELEBREX] Allergy Unknown SWELLING Verified 04/08/24 10:38 ibuprofen [IBUPROFEN] Allergy Unknown S-BLISTERING Verified 04/08/24 10:38 WELTS meloxicam [MELOXICAM] Allergy Unknown S-BLISTERING Verified 04/08/24 10:38 WELTS Penicillins [PENICILLINS] Allergy Unknown I-HIVES Verified 04/08/24 10:38 rofecoxib [From VIOXX] Allergy Unknown I-HIVES Verified 04/08/24 10:38 PFSH PFS Disclaimer: The information contained in this section may have been updated after the patient was seen, as this information can be updated by other users. Medical History UTI (urinary tract infection) Adult failure to thrive Dyspnea Lumbar disc disease with radiculopathy Pneumonia Acute respiratory failure with hypoxia and hypercarbia Acute and chronic respiratory failure with hypoxia Iron deficiency anemia Hyponatremia Physical deconditioning Bacteremia CHF exacerbation Intermittent confusion Urinary incontinence Physical deconditioning Acute hip pain Low back pain Aortic stenosis Contrast media allergy Anemia Non-STEMI (non-ST elevated myocardial infarction) Acute on chronic diastolic heart failure Asthma exacerbation in COPD Restrictive lung disease Dyspnea on exertion Typical angina Atrial fibrillation Hypoxemia ERICKSON (obstructive sleep apnea) Nocturnal hypoxemia ERICKSON (obstructive sleep apnea) Abnormal PFT COPD (chronic obstructive pulmonary disease) Dyspnea on exertion Restrictive lung disease Stopped smoking with greater than 30 pack year history Pulmonary hypertension Chronic hypoxemic respiratory failure History of 2019 novel coronavirus disease (COVID-19) Sleep disorder breathing Chronic pain Atrial fibrillation Diabetic neuropathy associated with type 2 diabetes mellitus Biventricular CHF (congestive heart failure) Severe pulmonary hypertension Pulmonary HTN Atypical angina Lumbar disc disease Atypical chest pain Sciatica associated with disorder of lumbar spine Lumbar radiculopathy, chronic Proliferative diabetic retinopathy Lumbar radiculopathy Pneumonia Morbid obesity with BMI of 40.0-44.9, adult Weakness Diarrhea Bilateral swelling of feet IDDM (insulin dependent diabetes mellitus) Lumbar radiculopathy, chronic Diabetic gastroparesis associated with type 2 diabetes mellitus Vertigo CHF (congestive heart failure) Hypothyroidism GERD (gastroesophageal reflux disease) Coronary artery disease Vitamin D deficiency Anxiety Depression Hyperlipidemia Hypertension Diabetes mellitus Surgical History History of lumpectomy History of eye surgery History of cataract surgery History of heart valve replacement Hx of CABG Family History Other Cancer Diabetes Heart attack Hyperlipidemia Hypertension Stroke Thyroid disorder Social History Smoking Status: Unknown if ever smoked second hand exposure: No alcohol intake: never substance use type: denies use current occupational status: unemployed Travel in the last 8 weeks: None household members: children housing: house current occupational exposures/hazards: No caffeine: Yes Other Medical History Have you received the Flu Vaccine for this season: No Have you received the Pneumonia Vaccine: No ROS Obtained: Yes All systems reviewed & no additional complaints except as documented Physical Exam General General appearance: alert, in no apparent distress and obese Head Head exam: atraumatic and normocephalic Eye Eye exam: Present normal appearance, PERRL and EOMI ENT ENT exam: Present normal exam, normal oropharynx, mucous membranes moist and normal external ear exam Neck Neck exam: Present normal inspection, full ROM and trachea midline; Absent tenderness Chest Chest inspection: Present symmetric chest wall rise and tenderness (midternal) Respiratory Respiratory exam: Present normal lung sounds bilaterally; Absent respiratory distress, wheezes, stridor or accessory muscle use Cardiovascular Cardiovascular exam: Present regular rate and normal rhythm Abdominal Exam Abdominal exam: Present soft; Absent distention, tenderness or guarding Extremities Exam Extremities exam: Present normal inspection, full ROM and normal capillary refill; Absent tenderness or edema Back Exam Back exam: Present normal inspection and full ROM; Absent tenderness Neurological Exam Neurological exam: Present alert, oriented X3 and CN II-XII intact; Absent motor sensory deficit Psychiatric Psychiatric exam: Present normal affect and normal mood Skin Skin exam: Present warm and dry Medical Decision Making Medical Records Medical records reviewed: Yes I reviewed the patient's medical records. Screening: Per USPSTF and CDC recommendations, given the prevalence of disease in our region, it is our hospital?s policy to screen for HIV and viral Hepatitis for all patients aged 18 and over and those with ongoing risk factors. Sam Inquiry Pt receiving controlled substance: No Vital Signs: 05/10/24 18:38 Temperature 97.8 F Temperature Source Oral Pulse Rate [Radial] 70 Respiratory Rate 16 Blood Pressure [Right Arm] 169/76 H Blood Pressure Mean [Right Arm] 107 Blood Pressure Source [Right Arm] Automatic Cuff Blood Pressure Position [Right Arm] Sitting 02 Sat by Pulse Oximetry 93 L Oxygen Delivery Method Room Air Lab Data Lab results reviewed: Yes I reviewed the patient's lab results. Lab Results 05/10/24 18:35: VBG pH 7.40, VBG pCO2 46.0, VBG pO2 57.7 H, VBG HCO3 27.8, VBG Total CO2 29.2 H, VBG O2 Saturation 89.7 H, VBG Base Excess 3.0 H, VBG Lactic Acid 2.4 H 05/10/24 18:38: WBC 9.2, RBC 4.15 L, Hgb 12.0 L, Hct 35.2 L, MCV 84.7, MCH 29.0, MCHC 34.2, RDW 15.7, Plt Count 197, MPV 7.8, Neut % (Auto) 66.3, Lymph % (Auto) 25.8, [place] % (Auto) 5.4, Eos % (Auto) 2.0, Baso % (Auto) 0.5, Neut # (Auto) 6.1, Lymph # (Auto) 2.4, [place] # (Auto) 0.5, Eos # (Auto) 0.2, Baso # (Auto) 0.0, PT 10.5, INR 0.93, APTT 28.2, D-Dimer 0.42, Sodium 140, Potassium 4.2, Chloride 104, Carbon Dioxide 28, Anion Gap 12.2, BUN 35 H, Creatinine 1.00, Estimated Creat Clear 80, Estimated GFR 54 L, Est GFR ( Amer) 65, Glucose 179 H, Calcium 10.1, Total Bilirubin 0.3, AST 28, ALT 36, Alkaline Phosphatase 88, Troponin I < 0.01, Total Protein 7.3, Albumin 4.0, Globulin 3.3 H, Albumin/Globulin Ratio 1.2 05/10/24 18:38 05/10/24 18:38 Orders (Tests/Meds): ED MEDICATIONS Discontinued Medications Generic Name Dose Route Start Last Admin Trade Name Ike PRN Reason Stop Dose Admin Acetaminophen 1,000 mg 05/10/24 18:37 05/10/24 18:44 Acetaminophen 500mg Tab PO 05/10/24 18:38 1,000 mg ONCE ONE Administration Ketorolac Tromethamine 15 mg 05/10/24 18:37 05/10/24 18:44 Ketorolac 30mg/Ml Vial IV 05/10/24 18:38 15 mg ONCE ONE Administration Lidocaine 1 each 05/10/24 18:35 05/10/24 18:44 Lidocaine 5% Transdermal Patch TP 05/10/24 18:36 1 each ONCE ONE Administration ORDERS Category Date Time Status CXR --portable [XR chest portable] Stat Exams 05/10/24 18:38 Completed Complete Blood Count Auto Diff Stat Lab 05/10/24 18:38 Completed Comprehensive Metabolic Panel Stat Lab 05/10/24 18:38 Completed D-Dimer Stat Lab 05/10/24 18:38 Completed HIV (1&2) Antibody Rapid Stat Lab 05/10/24 18:38 Received Hep C Ab with Reflex to RNA Stat Lab 05/10/24 18:38 Received PT INR [Prothrombin Time INR] Stat Lab 05/10/24 18:38 Completed PTT [Activated Partial Thrombo Time] Stat Lab 05/10/24 18:38 Completed Trop I [Troponin I] Stat Lab 05/10/24 18:38 Completed Troponin I Q3H Lab 05/10/24 21:45 Ordered Troponin I Q3H Lab 05/11/24 00:45 Ordered VBG [Venous Blood Gas] Stat RT 05/10/24 18:35 Completed ECG Data Tracing #1: I reviewed this ECG and interpreted as documented below: Sinus bradycardia with a ventricular rate of 59 bpm. Right bundle branch block. No acute ST changes concerning for ischemia. ECG initial impression date: 05/10/24 ECG initial impression time: 18:54 Medical Decision Narrative: In summary, this patient is a 74-year-old female presenting to the Emergency Department for evaluation of chest pain. Differential diagnoses considered include but are not limited to ACS, dysrhythmia, GERD, COPD exacerbation, pleurisy, costochondritis, pneumonia, CHF exacerbation. Ruling out the most morbid conditions drove assessment. It should be noted patient's history includes extensive cardiac history which may or may not be at goal therapy. This complicates all aspects of care by increasing patient's risk for morbidity. On exam, the patient is lying in bed in no acute distress with reassuring vital signs on cardiac telemetry. She has reproducible pain with tenderness to palpation of her chest, so I feel it is likely musculoskeletal in nature. Workup included CBC, CMP, troponin, D-dimer, coags, chest x-ray, EKG. Patient was given IV Toradol, oral Tylenol, topical lidocaine patch for symptomatic improvement. I independently interpreted x-ray prior to the radiologist read and noted no large focal consolidation. Please see their read for final interpretation. Labs were obtained that demonstrated negative D-dimer, negative troponin, no other acutely concerning abnormalities. On reassessment, patient had some improvement after administration of event as above. Exam is reassuring with the exception of tenderness to palpation of her chest. Pain is completely reproducible, so I feel is likely musculoskeletal in nature. Ultimately, based on reassuring workup and exam, I feel we have excluded life-threatening pathology as a cause of her pain and she likely has musculoskeletal chest wall pain. Family notes she has been diagnosed with this in the past. she is given instructions for close follow-up and strict return precautions. She was discharged after all questions were answered. Critical Care Critical Care Time Critical Care Time: No
[2024-05-10] MEDS: KETOROLAC 30MG/ML VIAL 15 MG IV (18:44)
[2024-05-10] MEDS: ACETAMINOPHEN 500MG TAB 1000 MG PO (18:44)
[2024-05-10] MEDS: LIDOCAINE 5% TRANSDERMAL PATCH 1 EACH TP (18:44)
--- NOTE | 2024-05-10 18:51 | ECG_ITS ---
APPROVED REPORT Exam: Resting ECG HR:59 bpm ECG Measurements Heart Rate 59 AXES PA 157 P -71 QRSd 153 QRS 4 QT 431 T 11 QTc 429 Conclusion SINUS BRADYCARDIA RIGHT BUNDLE BRANCH BLOCK [120+ ms QRS DURATION, UPRIGHT V1, 40+ ms S IN I/aVL/V4/V5/V6] ABNORMAL ECG Electronically signed by : NAJMA CAMACHO, 05/10/2024 23:25:40
[2024-05-10 18:53] LABS: Basophils % 0.5 % (0.1-2.0); Eosinophils # 0.2 K/mm3 (0.0-0.4); Hematocrit 35.2 % (37.0-47.0); Lymphocytes # 2.4 K/mm3 (0.7-4.5); Lymphocytes % 25.8 % (10-50); Mean Corpuscular HGB Conc 34.2 g/dL (31.8-35.4); Mean Corpuscular Volume 84.7 fl (81-99); Mean Platelet Volume 7.8 fl (7.4-10.4); Monocytes # 0.5 K/mm3 (0.1-1.0); Monocytes % 5.4 % (1.7-9.3); Neutrophils # 6.1 K/mm3 (1.8-7.8); Neutrophils % 66.3 % (37.0-80.0); Platelet Count 197 K/mm3 (142-424); Red Blood Count 4.15 M/mm3 (4.20-5.40); Red Cell Distribution Width 15.7 % (11.5-17.5); White Blood Count 9.2 K/mm3 (4.8-10.8)
[2024-05-10 18:56] LABS: Chloride 104 mmol/L (98-107); Potassium 4.2 mmoL/L (3.5-5.1); Sodium 140 mmol/L (136-145)
[2024-05-10 18:59] LABS: Alanine Aminotransferase 36 U/L (12-78); Albumin/Globulin Ratio 1.2 (1.1-1.8); Alkaline Phosphatase 88 U/L (38-126); Anion Gap 12.2 mEq/L (5-15); Aspartate Amino Transferase 28 U/L (14-36); Bilirubin,Total 0.3 mg/dl (0.2-1.3); Blood Urea Nitrogen 35 mg/dl (7-17); Calcium 10.1 mg/dl (8.4-10.2); Carbon Dioxide 28 mmol/L (22.0-30.0); Creatinine Clearance Estimated 80 mL/min (50-200); Estimated Glomerular Filt Rate 54 ml/min (>60); GFR (African American) 65 ML/MIN (>60); Globulin 3.3 g/dL (1.3-3.2); Glucose 179 mg/dl (74-100); Total Protein,Serum 7.3 g/dl (6.3-8.2)
[2024-05-10 19:01] LABS: Activated Partial Thrombo Time 28.2 seconds (22.8-30.6); INR 0.93 (0.9-1.1); Prothrombin Time 10.5 seconds (10.1-12.5)
[2024-05-10 19:03] LABS: VBG HCO3 27.8 mmol/L (23-30); VBG Oxygen Saturation 89.7 % (50-70); VBG PO2 57.7 mmol/L (28-40); VBG Total CO2 29.2 mmol/L (23-27)
[2024-05-10 19:04] LABS: Lactate Venous 2.4 mmol/L (0.4-2.0)
[2024-05-10 19:12] LABS: Troponin I < 0.01 ng/ml (0.00-0.034)
[2024-05-10 19:15] LABS: D-Dimer 0.42 ug/mL (0.0-0.5)
[2024-05-10 20:23] VITALS: BP 160/63; PULSE 51; RESP 20; TEMP 36.8; O2SAT 95
[2024-05-10 21:21] LABS: HIV (1&2) Antibody Rapid NONREACTIVE (NONREACTIVE)
[2024-05-10 23:04] LABS: Reflex Lactic Add Lactic Reflex
[2024-05-12 08:29] LABS: HCV Ab Non Reactive (Non Reactive)
== END 2024-05-10 20:58 | disposition home or self-care (01) ==
PROVIDERS: Emergency Provider Emergency Medicine; PCP Physician Assistant
DX: R07.89 Other chest pain (principal); R07.9 Chest pain, unspecified
CPT/HCPCS: 71045; 80053; 82803; 84484; 85025; 85378; 85610; 85730; 86803; 87389; 93005; 96374; 99284; J1885

== ENCOUNTER 2024-06-16 16:22 | Observation (INO) | payer MEDICARE, SELFPAY ==
[2024-06-16] VITALS (13 sets, daily range): BP systolic 126–164; BP diastolic 59–75; PULSE 69–113; RESP 13–18; TEMP 36.5–37.3; O2SAT 92–99; BMI 39.1; BMI 40.0
--- NOTE | 2024-06-16 16:42 | XR_ITS ---
PROCEDURE INFORMATION: Exam: XR Chest Exam date and time: 06/16/2024 5:13 PM Age: 74 years old Clinical indication: Cough TECHNIQUE: Imaging protocol: Radiologic exam of the chest. Views: 1 view. COMPARISON: CR XR CHEST PORTABLE 05/10/2024 7:03 PM FINDINGS: Lungs: Left basilar opacities partially silhouette the diaphragm are favored to represent combination of atelectasis/pleural effusion/consolidation. Pleural spaces: See Lungs finding. Heart/Mediastinum: Postsurgical changes compatible with CABG procedure. Bones/joints: Unremarkable. IMPRESSION: Left basilar opacities partially silhouette the diaphragm are favored to represent combination of atelectasis/pleural effusion/consolidation.
--- NOTE | 2024-06-16 16:46 | CT_ITS ---
PROCEDURE INFORMATION: Exam: CT Abdomen And Pelvis Without Contrast Exam date and time: 06/16/2024 5:10 PM Age: 74 years old Clinical indication: Abdominal pain; Additional info: Abd pain, diarrhea TECHNIQUE: Imaging protocol: Computed tomography of the abdomen and pelvis without contrast. Radiation optimization: All CT scans at this facility use at least one of these dose optimization techniques: automated exposure control; mA and/or kV adjustment per patient size (includes targeted exams where dose is matched to clinical indication); or iterative reconstruction. COMPARISON: CT ABDOMEN PELVIS WO CON 01/15/2024 7:11 AM FINDINGS: Lungs: [id number]-left patchy opacities with air bronchograms suggesting multifocal pneumonia of the lung bases. Liver: Normal. No mass. Gallbladder and biliary ducts: There are surgical clips within the gallbladder fossa. Pancreas: Normal. No ductal dilation. Spleen: Multiple benign-appearing calcific densities of the spleen. Adrenal glands: Normal. No mass. Kidneys and ureters: Normal. No hydronephrosis. Stomach and bowel: Unremarkable. No obstruction. No mucosal thickening. Appendix: No evidence of appendicitis. Intraperitoneal space: Unremarkable. No free air. No significant fluid collection. Vasculature: Mild calcific atherosclerotic disease of the bilateral renal arteries. Moderate calcific atherosclerotic disease of the abdominal aorta without aneurysmal dilatation is present. Lymph nodes: Unremarkable. No enlarged lymph nodes. Urinary bladder: Unremarkable as visualized. Reproductive: The uterus appears surgically absent. Bones/joints: Moderate loss of intervertebral disc space with degenerative changes at lower thoracic and lumbar spine greatest from L4 through L5. Soft tissues: Normal. IMPRESSION: Kacdb-[id number]-pthw-left patchy opacities with air bronchograms suggesting multifocal pneumonia of the lung bases.
--- NOTE | 2024-06-16 16:48 | ED_ITS ---
Discharge Plan Disposition Patient Disposition: Admitted Condition: Good Clinical Impressions Clinical Impression: Pneumonia, Acute UTI Discharge ED Provider: Jason Lucas General Adult HPI <OMAR Garcia - Last Filed: 06/16/24 19:36> General Chief complaint: Weakness Stated complaint: diarrhea & loss of appetite Time Seen by Provider: 06/16/24 16:23 Mode of Arrival: EMS Source of Information: Patient and EMS Limitations: No Limitations Description of Symptoms (Recalled from ER Triage Doc. by RN): pt presents to ED via EMS for cough, diarrhea, headache. pt reports to wearing oxygen at night, upon EMS arrival to pt resident she was 84% on RA. pt arrives to ed 92% on room air. History of Present Illness HPI narrative: Patient presents with feeling unwell for several days. She has had dry cough as well as diarrhea. She is unsure of any fever. She does wear CPAP at night. Denies any nausea or vomiting. Denies any blood in the stool. Denies any known sick contacts. MD complaint: cough, diarrhea Onset (ago): day(s) Radiation: non-radiation Severity: moderate Consistency: constant Relieving factors: none Exacerbating factors: none Associated symptoms: denies other symptoms Treatments prior to arrival: other (tylenol ) Related Data Home Medications ?Medication ?Instructions ?Recorded ?Confirmed ascorbic acid (vitamin C) 500 mg 500 mg PO DAILY 09/26/23 06/16/24 tablet (Vitamin C) buspirone 5 mg tablet 5 mg PO DAILY 09/26/23 06/16/24 citalopram 40 mg tablet 40 mg PO DAILY 09/26/23 06/16/24 clopidogrel 75 mg tablet 75 mg PO DAILY 09/26/23 06/16/24 ferrous sulfate 325 mg (65 mg 325 mg PO DAILY 09/26/23 06/16/24 iron) tablet (iron) levothyroxine 50 mcg tablet 50 mcg PO DAILY 09/26/23 06/16/24 multivitamin 1 tab PO DAILY 09/26/23 06/16/24 polyethylene glycol 3350 17 gram 17 g PO DAILY 09/26/23 06/16/24 oral powder packet (Miralax) zinc 50 mg tablet 50 mg PO DAILY 09/26/23 06/16/24 acetaminophen 500 mg tablet 500 mg PO Q6H PRN Pain (Scale 09/27/23 06/16/24 Score 1-3) cholecalciferol (vitamin D3) 25 1,000 unit PO BID 09/27/23 06/16/24 mcg (1,000 unit) capsule cranberry 500 mg capsule 500 mg PO BID 03/08/24 06/16/24 insulin aspar prot-insulin aspart 10 unit SQ NEEDED PRN blood 03/28/24 06/16/24 100 unit/mL (70-30) subcutaneous sugar over 250 pen (Novolog Mix 70-30FlexPen U-100) dulaglutide 0.75 mg/0.5 mL 0.75 mg SQ WEEKLY 03/29/24 06/16/24 subcutaneous pen injector (Trulicity) meclizine 25 mg tablet 25 mg PO BIDP PRN Dizziness Or 03/29/24 06/16/24 Vertigo Previous Rx's ?Medication ?Instructions ?Recorded ondansetron HCl 8 mg tablet 8 mg PO Q12H PRN nausea and 10/03/23 vomiting #30 tabs blood-glucose meter #1 ea 10/16/23 ipratropium 0.5 mg-albuterol 3 mg 3 ml inhalation QID PRN shortness 10/16/23 (2.5 mg base)/3 mL nebulization of breath or wheezing 90 days #270 soln mL apixaban 5 mg tablet (Eliquis) See Rx Instructions .Route 01/03/24 .COMPLEX #90 tabs albuterol sulfate 90 mcg/actuation 2 inh inhalation QID PRN shortness 01/29/24 aerosol inhaler of breath or wheezing 90 days #8.5 grams gabapentin 400 mg capsule 400 mg PO BID #60 caps 04/02/24 hydrocodone 10 mg-acetaminophen 0.5 tab PO BID PRN pain #30 tabs 04/02/24 325 mg tablet atorvastatin 40 mg tablet 40 mg PO HS #90 tabs 04/03/24 bisoprolol fumarate 5 mg tablet 2.5 mg (1/2 x 5 mg) PO DAILY #90 05/06/24 tabs bumetanide 1 mg tablet See Rx Instructions .Route 05/06/24 .COMPLEX #180 tabs omeprazole 20 mg capsule,delayed See Rx Instructions .Route 05/06/24 release .COMPLEX #90 caps metoclopramide HCl 5 mg tablet See Rx Instructions .Route 05/08/24 .COMPLEX #180 tabs fluticasone furoate 200 See Rx Instructions .Route 06/03/24 mcg-vilanterol 25 mcg/dose .COMPLEX #180 blisters inhalation powder (Breo Ellipta) Allergies Allergy/AdvReac Type Severity Reaction Status Date / Time Iodinated Contrast Media Allergy Intermediate Hives Verified 05/23/24 13:29 (Iodinated Contrast Media - IV Dye) celecoxib (From CELEBREX) Allergy Unknown SWELLING Verified 05/23/24 13:29 ibuprofen (IBUPROFEN) Allergy Unknown S-BLISTERING Verified 05/23/24 13:29 WELTS meloxicam (MELOXICAM) Allergy Unknown S-BLISTERING Verified 05/23/24 13:29 WELTS Penicillins (PENICILLINS) Allergy Unknown I-HIVES Verified 05/23/24 13:29 rofecoxib (From VIOXX) Allergy Unknown I-HIVES Verified 05/23/24 13:29 [facility] <OMAR Garcia - Last Filed: 06/16/24 19:36> [facility] Disclaimer: The information contained in this section may have been updated after the patient was seen, as this information can be updated by other users. Medical History UTI (urinary tract infection) Adult failure to thrive Dyspnea Lumbar disc disease with radiculopathy Pneumonia Acute respiratory failure with hypoxia and hypercarbia Acute and chronic respiratory failure with hypoxia Iron deficiency anemia Hyponatremia Physical deconditioning Bacteremia CHF exacerbation Intermittent confusion Urinary incontinence Physical deconditioning Acute hip pain Low back pain Aortic stenosis Contrast media allergy Anemia Non-STEMI (non-ST elevated myocardial infarction) Acute on chronic diastolic heart failure Asthma exacerbation in COPD Restrictive lung disease Dyspnea on exertion Typical angina Atrial fibrillation Hypoxemia ERICKSON (obstructive sleep apnea) Nocturnal hypoxemia Oxygen supplementation ERICKSON (obstructive sleep apnea) Severe ERICKSON, chronic hypoxic respiratory failure, pulmonary hypertension, afib, morbidly obese, oxygen supplementation dependent without hypercapnia in June 2022. Compliant on BiPAP with O2. Increased drowsiness lately in the setting of difficulty with oxygen concentrator. Abnormal PFT COPD (chronic obstructive pulmonary disease) Active follow-up with pulmonology Dyspnea on exertion Restrictive lung disease Stopped smoking with greater than 30 pack year history Pulmonary hypertension Chronic hypoxemic respiratory failure Active follow-up with pulmonology History of 2019 novel coronavirus disease (COVID-19) Sleep disorder breathing Chronic pain Atrial fibrillation Diabetic neuropathy associated with type 2 diabetes mellitus Biventricular CHF (congestive heart failure) Severe pulmonary hypertension Pulmonary HTN Atypical angina Lumbar disc disease Atypical chest pain Sciatica associated with disorder of lumbar spine Lumbar radiculopathy, chronic Proliferative diabetic retinopathy Lumbar radiculopathy Pneumonia Morbid obesity with BMI of 40.0-44.9, adult Weakness Diarrhea Bilateral swelling of feet IDDM (insulin dependent diabetes mellitus) Lumbar radiculopathy, chronic Diabetic gastroparesis associated with type 2 diabetes mellitus Vertigo CHF (congestive heart failure) Hypothyroidism GERD (gastroesophageal reflux disease) Coronary artery disease Vitamin D deficiency Anxiety Depression Hyperlipidemia Hypertension Diabetes mellitus type 2 non insulin dep Surgical History History of lumpectomy History of eye surgery History of cataract surgery History of heart valve replacement Hx of CABG Family History Other Cancer Diabetes Heart attack Hyperlipidemia Hypertension Stroke Thyroid disorder Social History (Updated 06/16/24 @ 19:36 by OMAR Garcia) Smoking Status: Never smoker second hand exposure: No alcohol intake: never substance use type: denies use current occupational status: unemployed Travel in the last 8 weeks: None household members: children housing: house current occupational exposures/hazards: No caffeine: Yes Other Medical History Have you received the Flu Vaccine for this season: No Have you received the Pneumonia Vaccine: Yes <OMAR Garcia - Last Filed: 06/16/24 19:36> ROS Obtained: Yes All systems reviewed & no additional complaints except as documented Physical Exam <OMAR Garcia - Last Filed: 06/16/24 19:36> General General appearance: alert and in no apparent distress Head Head exam: atraumatic and normocephalic Eye Eye exam: Present normal appearance and EOMI Chest Chest inspection: Present symmetric chest wall rise Respiratory Respiratory exam: Present normal lung sounds bilaterally and wheezes; Absent stridor Cardiovascular Cardiovascular exam: Present regular rate and normal rhythm; Absent systolic murmur Abdominal Exam Abdominal exam: Present soft and tenderness (RUQ/RLQ ); Absent distention Extremities Exam Extremities exam: Present full ROM Neurological Exam Neurological exam: Present alert and oriented X3 Psychiatric Psychiatric exam: Present normal affect and normal mood Skin Skin exam: Present warm, dry and intact Medical Decision Making <OMAR Garcia - Last Filed: 06/16/24 19:36> Medical Records Screening: Per USPSTF and CDC recommendations, given the prevalence of disease in our region, it is our hospital?s policy to screen for HIV and viral Hepatitis for all patients aged 18 and over and those with ongoing risk factors. Sam Inquiry Pt receiving controlled substance: No Vital Signs: 06/16/24 16:22 06/16/24 16:26 06/16/24 16:35 Temperature 99.1 F Temperature Source Oral Pulse Rate 73 70 Pulse Rate [Left Radial] 74 Respiratory Rate 13 Blood Pressure 164/75 H 140/59 L Blood Pressure [Right Arm] 164/75 H Blood Pressure Mean [Right Arm] 104 Blood Pressure Source Blood Pressure Position 02 Sat by Pulse Oximetry 92 L 95 97 Oxygen Delivery Method Room Air Nasal Cannula Nasal Cannula Oxygen Flow Rate (LPM) 2 2 06/16/24 17:00 06/16/24 17:30 06/16/24 17:47 Temperature Temperature Source Pulse Rate 69 76 79 Pulse Rate [Left Radial] Respiratory Rate Blood Pressure 143/60 H 156/72 H 136/68 Blood Pressure [Right Arm] Blood Pressure Mean [Right Arm] Blood Pressure Source Blood Pressure Position 02 Sat by Pulse Oximetry 99 97 95 Oxygen Delivery Method Nasal Cannula Nasal Cannula Nasal Cannula Oxygen Flow Rate (LPM) 2 2 23 06/16/24 18:00 06/16/24 18:31 06/16/24 19:01 Temperature Temperature Source Pulse Rate 71 76 74 Pulse Rate [Left Radial] Respiratory Rate Blood Pressure 138/62 143/62 H 146/66 H Blood Pressure [Right Arm] Blood Pressure Mean [Right Arm] Blood Pressure Source Blood Pressure Position 02 Sat by Pulse Oximetry 98 98 97 Oxygen Delivery Method Nasal Cannula Nasal Cannula Oxygen Flow Rate (LPM) 2 2 06/16/24 19:31 06/16/24 19:37 Temperature 97.9 F Temperature Source Oral Pulse Rate 113 H 110 H Pulse Rate [Left Radial] Respiratory Rate 18 Blood Pressure 126/60 126/60 Blood Pressure [Right Arm] Blood Pressure Mean [Right Arm] Blood Pressure Source Automatic Cuff Blood Pressure Position Supine 02 Sat by Pulse Oximetry 93 L Oxygen Delivery Method Room Air Oxygen Flow Rate (LPM) Lab Data Lab Results 06/16/24 16:34: WBC 14.6 H, RBC 4.17 L, Hgb 12.0 L, Hct 34.6 L, MCV 83.0, MCH 28.8, MCHC 34.7, RDW 16.0, Plt Count 188, MPV 7.3 L, Neut % (Auto) 84.6 H, Lymph % (Auto) 10.0, [place] % (Auto) 4.9, Eos % (Auto) 0.2, Baso % (Auto) 0.4, Neut # (Auto) 12.4 H, Lymph # (Auto) 1.5, [place] # (Auto) 0.7, Eos # (Auto) 0.0, Baso # (Auto) 0.1, Sodium 137, Potassium 3.6, Chloride 103, Carbon Dioxide 26, Anion Gap 11.6, BUN 23 H, Creatinine 1.10 H, Estimated Creat Clear 74, Estimated GFR 48 L, Est GFR ( Amer) 59, Glucose 208 H, Calcium 10.1, Total Bilirubin 0.8, AST 24, ALT 27, Alkaline Phosphatase 86, Total Protein 6.3, Albumin 3.4 L, Globulin 2.9, Albumin/Globulin Ratio 1.2, Lipase 19 L 06/16/24 16:53: Chlamy pneumoniae PCR Not detected, Adenovirus (PCR) Not detected, B. pertussis DNA (PCR) Not detected, Coronavirus OC43 (PCR) Not detected, Coronavirus HKU1 (PCR) Not detected, Coronavirus 229E (PCR) Not detected, SARS-CoV-2 (PCR) Not detected, Coronavirus NL63 (PCR) Not detected, Human Metapneumovir PCR Not detected, Influenza A (H1) PCR Not detected, Influ A (H1N1/09) PCR Not detected, Influenza A (H3) PCR Not detected, Influenza Type A (PCR) Not detected, Influenza Type B (PCR) Not detected, M. pneumoniae (PCR) Not detected, Parainfluenza 1 (PCR) Not detected, Parainfluenza 2 (PCR) Not detected, Parainfluenza 3 (PCR) Not detected, Parainfluenza 4 (PCR) Not detected, RSV (PCR) Not detected, Entero/Rhino (PCR) Not detected 06/16/24 17:46: Urine Color Yellow, Urine Appearance Clear, Urine pH 5.5, Ur Specific [place] 1.025, Urine Protein 2+ A, Urine Glucose (UA) Negative, Urine Ketones Negative, Urine Blood 2+ A, Urine Nitrate Negative, Urine Bilirubin Negative, Urine Urobilinogen 0.2, Ur Leukocyte Esterase 3+ A, Urine RBC 3-5, Urine WBC 10-20, Ur Squamous Epith Cells 3-5, Amorphous Sediment 1+, Urine Bacteria 2+ 06/16/24 16:34 06/16/24 16:34 Orders (Tests/Meds): ED MEDICATIONS Generic Name Dose Route Start Last Admin Trade Name Freq PRN Reason Stop Dose Admin Acetaminophen 650 mg 06/16/24 20:22 Acetaminophen 325mg Tab PO 07/16/24 20:21 Q4HP PRN Fever or Mild Pain (1-3) Albuterol/Ipratropium 3 ml 06/16/24 20:22 Ipratropium/Albuterol 3 Ml Neb IH 07/16/24 20:21 Q6H BRYCE Apixaban 0 mg 06/16/24 20:22 Apixaban 5mg Tablet PO 07/16/24 20:21 .COMPLEX BRYCE Ascorbic Acid 500 mg 06/17/24 09:00 Ascorbic Acid 500mg Tab PO 07/17/24 08:59 DAILY [facility] Atorvastatin Calcium 40 mg 06/16/24 21:00 Atorvastatin 40mg Tablet PO 07/16/24 20:59 HS [facility] Bisoprolol Fumarate 2.5 mg 06/17/24 09:00 Bisoprolol 5mg Tablet PO 07/17/24 08:59 DAILY [facility] Bumetanide 1 mg 06/17/24 09:00 Bumetanide 1 Mg Tablet PO 07/17/24 08:59 DAILY [facility] Buspirone HCl 5 mg 06/16/24 21:00 Buspirone Hcl 5 Mg Tablet PO 07/16/24 20:59 HS [facility] Clopidogrel Bisulfate 75 mg 06/17/24 09:00 Clopidogrel 75mg Tab PO 07/17/24 08:59 DAILY [facility] Ferrous Sulfate 325 mg 06/17/24 09:00 Ferrous Sulfate 325mg Tablet PO 07/17/24 08:59 DAILY [facility] Gabapentin 400 mg 06/16/24 21:00 Gabapentin 400mg Capsule PO 07/16/24 20:59 BID [facility] Azithromycin 500 mg/ Sodium 250 mls @ 250 mls/hr 06/17/24 19:00 Chloride IV 06/26/24 18:59 Q24H [facility] Ceftriaxone Sodium 1 gm/ 50 mls @ 100 mls/hr 06/17/24 19:00 Sodium Chloride IV 06/26/24 18:59 Q24H [facility] Insulin Human Lispro 0 unit 06/16/24 21:00 Humalog 100 Units/Ml 10ml Vial ([facility]) SUBCUT 07/16/24 20:59 ACHS [facility] Protocol Levothyroxine Sodium 50 mcg 06/17/24 09:00 Levothyroxine 50mcg (0.05mg) Tab PO 07/17/24 08:59 DAILY [facility] Metoclopramide HCl 5 mg 06/16/24 21:00 Metoclopramide 5mg Tablet PO 07/16/24 20:59 BID BRYCE Ondansetron HCl 4 mg 06/16/24 20:22 Ondansetron 4mg/2ml Vial IV 07/16/24 20:21 Q6HP PRN Nausea Polyethylene Glycol 17 gm 06/17/24 09:00 Polyethylene Glycol 3350 17 Gm Packet PO 07/17/24 08:59 DAILY [facility]YCE Discontinued Medications Generic Name Dose Route Start Last Admin Trade Name Freq PRN Reason Stop Dose Admin Albuterol Sulfate 2.5 mg 06/16/24 16:42 06/16/24 16:49 Albuterol 0.083% 2.5 Mg/3 Ml Neb IH 06/16/24 16:43 2.5 mg ONCE ONE Administration Azithromycin 500 mg/ Sodium 250 mls @ 250 mls/hr 06/16/24 19:00 06/16/24 19:18 Chloride IV 06/26/24 18:59 250 mls/hr Q24H BRYCE Administration Ceftriaxone Sodium 1 gm/ 50 mls @ 100 mls/hr 06/16/24 19:00 06/16/24 19:18 Sodium Chloride IV 06/26/24 18:59 100 mls/hr Q24H BRYCE Administration Sodium Chloride 500 ml 06/16/24 18:55 06/16/24 19:29 Sodium Chloride 0.9% 500ml Bag IV 06/16/24 18:56 500 ml ONCE ONE Administration ORDERS Category Date Time Status CT abdomen pelvis wo con Stat Cat Scan 06/16/24 16:46 Completed XR chest portable Stat Exams 06/16/24 16:42 Completed Basic Metabolic Panel AMLAB Lab 06/17/24 06:00 Ordered CBC w/Auto Diff [Complete Blood Count Auto Diff] Stat Lab 06/16/24 16:34 Completed CMP [Comprehensive Metabolic Panel] Stat Lab 06/16/24 16:34 Completed Complete Blood Count Auto Diff AMLAB Lab 06/17/24 06:00 Ordered Full Resp Panel w/COVID ([facility]) Routine Lab 06/16/24 16:53 Completed Lipase Stat Lab 06/16/24 16:34 Completed Urinalysis and Microscopic Stat Lab 06/16/24 17:46 Completed Blood Culture Stat Micro 06/16/24 19:07 Received Urine Culture Stat Micro 06/16/24 17:46 Received Medical Decision Narrative: In summary patient is a 74-year-old who presents the emergency department for evaluation of cough and diarrhea. Patient is slightly hypertensive, O2 92% upon arrival, afebrile. Wheezing on exam, right upper and lower quadrant abdominal tenderness. Differential diagnosis includes viral respiratory infection, COPD exacerbation, pneumonia, diverticulitis, cholecystitis. Initial workup will be conducted with labs, respiratory panel, urinalysis, chest x-ray, CT abdomen pelvis. Initial inventions include albuterol neb. Initial workup reviewed by me [hematologic labs are remarkable for? Imaging remarkable for? Urinalysis remarkable for?]. Upon repeat evaluation white blood cell count 14, leukocyte esterase and blood positive urinalysis, left lower lobe pneumonia on chest x-ray and multifocal pneumonia evident on CT abdomen and pelvis. Given this patient given Rocephin and Zithromax and admitted to the hospitalist for pneumonia and urinary tract infection. I informally interpreted the patient's chest x-ray which shows LLL PNA/ effusion. <Jason Lucas MD - Last Filed: 06/16/24 21:35> Vital Signs: 06/16/24 16:22 06/16/24 16:26 06/16/24 16:35 Temperature 99.1 F Temperature Source Oral Pulse Rate 73 70 Pulse Rate [Left Radial] 74 Respiratory Rate 13 Blood Pressure 164/75 H 140/59 L Blood Pressure [Right Arm] 164/75 H Blood Pressure Mean [Right Arm] 104 Blood Pressure Source Blood Pressure Position 02 Sat by Pulse Oximetry 92 L 95 97 Oxygen Delivery Method Room Air Nasal Cannula Nasal Cannula Oxygen Flow Rate (LPM) 2 2 06/16/24 17:00 06/16/24 17:30 06/16/24 17:47 Temperature Temperature Source Pulse Rate 69 76 79 Pulse Rate [Left Radial] Respiratory Rate Blood Pressure 143/60 H 156/72 H 136/68 Blood Pressure [Right Arm] Blood Pressure Mean [Right Arm] Blood Pressure Source Blood Pressure Position 02 Sat by Pulse Oximetry 99 97 95 Oxygen Delivery Method Nasal Cannula Nasal Cannula Nasal Cannula Oxygen Flow Rate (LPM) 2 2 23 06/16/24 18:00 06/16/24 18:31 06/16/24 19:01 Temperature Temperature Source Pulse Rate 71 76 74 Pulse Rate [Left Radial] Respiratory Rate Blood Pressure 138/62 143/62 H 146/66 H Blood Pressure [Right Arm] Blood Pressure Mean [Right Arm] Blood Pressure Source Blood Pressure Position 02 Sat by Pulse Oximetry 98 98 97 Oxygen Delivery Method Nasal Cannula Nasal Cannula Oxygen Flow Rate (LPM) 2 2 06/16/24 19:31 06/16/24 19:37 Temperature 97.9 F Temperature Source Oral Pulse Rate 113 H 110 H Pulse Rate [Left Radial] Respiratory Rate 18 Blood Pressure 126/60 126/60 Blood Pressure [Right Arm] Blood Pressure Mean [Right Arm] Blood Pressure Source Automatic Cuff Blood Pressure Position Supine 02 Sat by Pulse Oximetry 93 L Oxygen Delivery Method Room Air Oxygen Flow Rate (LPM) Lab Data Lab Results 06/16/24 16:34: WBC 14.6 H, RBC 4.17 L, Hgb 12.0 L, Hct 34.6 L, MCV 83.0, MCH 28.8, MCHC 34.7, RDW 16.0, Plt Count 188, MPV 7.3 L, Neut % (Auto) 84.6 H, Lymph % (Auto) 10.0, [place] % (Auto) 4.9, Eos % (Auto) 0.2, Baso % (Auto) 0.4, Neut # (Auto) 12.4 H, Lymph # (Auto) 1.5, [place] # (Auto) 0.7, Eos # (Auto) 0.0, Baso # (Auto) 0.1, Sodium 137, Potassium 3.6, Chloride 103, Carbon Dioxide 26, Anion Gap 11.6, BUN 23 H, Creatinine 1.10 H, Estimated Creat Clear 74, Estimated GFR 48 L, Est GFR ( Amer) 59, Glucose 208 H, Calcium 10.1, Total Bilirubin 0.8, AST 24, ALT 27, Alkaline Phosphatase 86, Total Protein 6.3, Albumin 3.4 L, Globulin 2.9, Albumin/Globulin Ratio 1.2, Lipase 19 L 06/16/24 16:53: Chlamy pneumoniae PCR Not detected, Adenovirus (PCR) Not detected, B. pertussis DNA (PCR) Not detected, Coronavirus OC43 (PCR) Not detected, Coronavirus HKU1 (PCR) Not detected, Coronavirus 229E (PCR) Not detected, SARS-CoV-2 (PCR) Not detected, Coronavirus NL63 (PCR) Not detected, Human Metapneumovir PCR Not detected, Influenza A (H1) PCR Not detected, Influ A (H1N1/09) PCR Not detected, Influenza A (H3) PCR Not detected, Influenza Type A (PCR) Not detected, Influenza Type B (PCR) Not detected, M. pneumoniae (PCR) Not detected, Parainfluenza 1 (PCR) Not detected, Parainfluenza 2 (PCR) Not detected, Parainfluenza 3 (PCR) Not detected, Parainfluenza 4 (PCR) Not detected, RSV (PCR) Not detected, Entero/Rhino (PCR) Not detected 06/16/24 17:46: Urine Color Yellow, Urine Appearance Clear, Urine pH 5.5, Ur Specific [place] 1.025, Urine Protein 2+ A, Urine Glucose (UA) Negative, Urine Ketones Negative, Urine Blood 2+ A, Urine Nitrate Negative, Urine Bilirubin Negative, Urine Urobilinogen 0.2, Ur Leukocyte Esterase 3+ A, Urine RBC 3-5, Urine WBC 10-20, Ur Squamous Epith Cells 3-5, Amorphous Sediment 1+, Urine Bacteria 2+ Orders (Tests/Meds): ED MEDICATIONS Generic Name Dose Route Start Last Admin Trade Name Freq PRN Reason Stop Dose Admin Acetaminophen 650 mg 06/16/24 20:22 Acetaminophen 325mg Tab PO 07/16/24 20:21 Q4HP PRN Fever or Mild Pain (1-3) Albuterol/Ipratropium 3 ml 06/16/24 20:22 Ipratropium/Albuterol 3 Ml Neb IH 07/16/24 20:21 Q6H BRYCE Apixaban 0 mg 06/16/24 20:22 Apixaban 5mg Tablet PO 07/16/24 20:21 .COMPLEX BRYCE Ascorbic Acid 500 mg 06/17/24 09:00 Ascorbic Acid 500mg Tab PO 07/17/24 08:59 DAILY [facility] Atorvastatin Calcium 40 mg 06/16/24 21:00 Atorvastatin 40mg Tablet PO 07/16/24 20:59 HS [facility] Bisoprolol Fumarate 2.5 mg 06/17/24 09:00 Bisoprolol 5mg Tablet PO 07/17/24 08:59 DAILY [facility] Bumetanide 1 mg 06/17/24 09:00 Bumetanide 1 Mg Tablet PO 07/17/24 08:59 DAILY [facility] Buspirone HCl 5 mg 06/16/24 21:00 Buspirone Hcl 5 Mg Tablet PO 07/16/24 20:59 HS [facility] Clopidogrel Bisulfate 75 mg 06/17/24 09:00 Clopidogrel 75mg Tab PO 07/17/24 08:59 DAILY [facility] Ferrous Sulfate 325 mg 06/17/24 09:00 Ferrous Sulfate 325mg Tablet PO 07/17/24 08:59 DAILY [facility] Gabapentin 400 mg 06/16/24 21:00 Gabapentin 400mg Capsule PO 07/16/24 20:59 BID [facility] Azithromycin 500 mg/ Sodium 250 mls @ 250 mls/hr 06/17/24 19:00 Chloride IV 06/26/24 18:59 Q24H [facility] Ceftriaxone Sodium 1 gm/ 50 mls @ 100 mls/hr 06/17/24 19:00 Sodium Chloride IV 06/26/24 18:59 Q24H [facility] Insulin Human Lispro 0 unit 06/16/24 21:00 Humalog 100 Units/Ml 10ml Vial ([facility]) SUBCUT 07/16/24 20:59 ACHS [facility] Protocol Levothyroxine Sodium 50 mcg 06/17/24 09:00 Levothyroxine 50mcg (0.05mg) Tab PO 07/17/24 08:59 DAILY [facility] Metoclopramide HCl 5 mg 06/16/24 21:00 Metoclopramide 5mg Tablet PO 07/16/24 20:59 BID [facility] Ondansetron HCl 4 mg 06/16/24 20:22 Ondansetron 4mg/2ml Vial IV 07/16/24 20:21 Q6HP PRN Nausea Polyethylene Glycol 17 gm 06/17/24 09:00 Polyethylene Glycol 3350 17 Gm Packet PO 07/17/24 08:59 DAILY [facility] Discontinued Medications Generic Name Dose Route Start Last Admin Trade Name Freq PRN Reason Stop Dose Admin Albuterol Sulfate 2.5 mg 06/16/24 16:42 06/16/24 16:49 Albuterol 0.083% 2.5 Mg/3 Ml Neb IH 06/16/24 16:43 2.5 mg ONCE ONE Administration Azithromycin 500 mg/ Sodium 250 mls @ 250 mls/hr 06/16/24 19:00 06/16/24 19:18 Chloride IV 06/26/24 18:59 250 mls/hr Q24H BRYCE Administration Ceftriaxone Sodium 1 gm/ 50 mls @ 100 mls/hr 06/16/24 19:00 06/16/24 19:18 Sodium Chloride IV 06/26/24 18:59 100 mls/hr Q24H BRYCE Administration Sodium Chloride 500 ml 06/16/24 18:55 06/16/24 19:29 Sodium Chloride 0.9% 500ml Bag IV 06/16/24 18:56 500 ml ONCE ONE Administration ORDERS Category Date Time Status CT abdomen pelvis wo con Stat Cat Scan 06/16/24 16:46 Completed XR chest portable Stat Exams 06/16/24 16:42 Completed Basic Metabolic Panel AMLAB Lab 06/17/24 06:00 Ordered CBC w/Auto Diff [Complete Blood Count Auto Diff] Stat Lab 06/16/24 16:34 Completed CMP [Comprehensive Metabolic Panel] Stat Lab 06/16/24 16:34 Completed Complete Blood Count Auto Diff AMLAB Lab 06/17/24 06:00 Ordered Full Resp Panel w/COVID ([facility]) Routine Lab 06/16/24 16:53 Completed Lipase Stat Lab 06/16/24 16:34 Completed Urinalysis and Microscopic Stat Lab 06/16/24 17:46 Completed Blood Culture Stat Micro 06/16/24 19:07 Received Urine Culture Stat Micro 06/16/24 17:46 Received Medical Decision Narrative: In summary patient is a 74-year-old who presents the emergency department for evaluation of cough and diarrhea. Patient is slightly hypertensive, O2 92% upon arrival, afebrile. Wheezing on exam, right upper and lower quadrant abdominal tenderness. Differential diagnosis includes viral respiratory infection, COPD exacerbation, pneumonia, diverticulitis, cholecystitis. Initial workup will be conducted with labs, respiratory panel, urinalysis, chest x-ray, CT abdomen pelvis. Initial inventions include albuterol neb. Initial workup reviewed by me leukocytosis, REDD, urinary tract infection. Upon repeat evaluation white blood cell count 14, leukocyte esterase and blood positive urinalysis, left lower lobe pneumonia on chest x-ray and multifocal pneumonia evident on CT abdomen and pelvis. Given this patient given Rocephin and Zithromax and admitted to the hospitalist for pneumonia and urinary tract infection. I informally interpreted the patient's chest x-ray which shows LLL PNA/ effusion. I was consulted by the MOSHE, and we discussed the complexity of the problems being addressed. I approved the treatment and management plan for this patient's care in the Emergency Department, thus performing a substantive portion of the medical decision making. Jason Lucas MD Critical Care <OMAR Garcia - Last Filed: 06/16/24 19:36> Critical Care Time Critical Care Time: No
[2024-06-16] MEDS: ALBUTEROL 0.083% 2.5 MG/3 ML NEB IH (16:49)
[2024-06-16 16:52] LABS: Basophils # 0.1 K/mm3 (0-0.2); Basophils % 0.4 % (0.1-2.0); Eosinophils % 0.2 % (0.1-12.0); Hematocrit 34.6 % (37.0-47.0); Lymphocytes # 1.5 K/mm3 (0.7-4.5); Mean Corpuscular HGB Conc 34.7 g/dL (31.8-35.4); Mean Corpuscular Hemoglobin 28.8 pg (27.0-31.2); Mean Platelet Volume 7.3 fl (7.4-10.4); Monocytes # 0.7 K/mm3 (0.1-1.0); Monocytes % 4.9 % (1.7-9.3); Neutrophils # 12.4 K/mm3 (1.8-7.8); Neutrophils % 84.6 % (37.0-80.0); Platelet Count 188 K/mm3 (142-424); Red Blood Count 4.17 M/mm3 (4.20-5.40); White Blood Count 14.6 K/mm3 (4.8-10.8)
[2024-06-16 16:57] LABS: Adenovirus,PCR Not Detected (NotDetected); Bordetella Pertussis Not Detected (NotDetected); Chlamydophila Pneumoniae, PCR Not Detected (NotDetected); Coronavirus 19, PCR Not Detected (NotDetected); Coronavirus 229E Not Detected (NotDetected); Coronavirus NL63 Not Detected (NotDetected); Coronavirus OC43 Not Detected (NotDetected); Coronovirus HKU1,PCR Not Detected (NotDetected); Human Metapneumovirus Not Detected (NotDetected); Influenza A, PCR Not Detected (NotDetected); Influenza AH1, 2009 Not Detected (NotDetected); Influenza AH1, PCR Not Detected (NotDetected); Influenza AH3,PCR Not Detected (NotDetected); Influenza B, PCR Not Detected (NotDetected); Mycoplasma Pneumoniae, PCR Not Detected (NotDetected); Parainfluenza 1, PCR Not Detected (NotDetected); Parainfluenza 2, PCR Not Detected (NotDetected); Parainfluenza 3, PCR Not Detected (NotDetected); Parainfluenza 4, PCR Not Detected (NotDetected); Respiratory Syncytial Virus Not Detected (NotDetected); Rhinovirus/Enterovirus Not Detected (NotDetected)
[2024-06-16 16:58] LABS: Alanine Aminotransferase 27 U/L (12-78); Albumin Level 3.4 g/dl (3.5-5.0); Albumin/Globulin Ratio 1.2 (1.1-1.8); Alkaline Phosphatase 86 U/L (38-126); Anion Gap 11.6 mEq/L (5-15); Aspartate Amino Transferase 24 U/L (14-36); Bilirubin,Total 0.8 mg/dl (0.2-1.3); Blood Urea Nitrogen 23 mg/dl (7-17); Calcium 10.1 mg/dl (8.4-10.2); Carbon Dioxide 26 mmol/L (22.0-30.0); Chloride 103 mmol/L (98-107); Creatinine Clearance Estimated 74 mL/min (50-200); Estimated Glomerular Filt Rate 48 ml/min (>60); GFR (African American) 59 ML/MIN (>60); Globulin 2.9 g/dL (1.3-3.2); Glucose 208 mg/dl (74-100); Lipase 19 U/L (23-300); Potassium 3.6 mmoL/L (3.5-5.1); Sodium 137 mmol/L (136-145); Total Protein,Serum 6.3 g/dl (6.3-8.2)
[2024-06-16 17:49] LABS: Microscopic, Urine URINE MICROSCOPIC (MICROSCOPIC)
[2024-06-16 17:58] LABS: Appearance,Urine CLEAR (Clear); Bilirubin,Urine Negative (Negative); Blood, Urine 2+ (Negative); Color,Urine YELLOW (Yellow); Glucose,Urine (UA) Negative (Negative); Ketones,Urine Negative (Negative); Leukocyte Esterase,Urine 3+ (Negative); Nitrate,Urine Negative (Negative); PH,Urine 5.5 (5.0-8.5); Protein,Urine 2+ (Negative); Specific Gravity, Urine 1.025 (1.005-1.030); Urobilinogen,Urine 0.2 EU/dl (0.2)
[2024-06-16 18:02] LABS: Amorphous Sediment,Urine 1+ /lpf; Bacteria,Urine 2+ /lpf
[2024-06-16] MEDS: AZITHROMYCIN 500 MG in 0.9 % SODIUM CHLORIDE 250 ML 250 MG IV (19:18)
[2024-06-16] MEDS: CEFTRIAXONE SODIUM 1 GM in 0.9 % SODIUM CHLORIDE 50 ML IV (19:18)
[2024-06-16] MEDS: SODIUM CHLORIDE 0.9% 500ML BAG 500 ML IV (19:29)
--- NOTE | 2024-06-16 19:36 | PC.NURSE ---
Nurse unable to take report at this time because she is giving meds to another patient
--- NOTE | 2024-06-16 20:00 | EXP.HP ---
History of Present Illness *Admission Date: 06/16/24 *Reason for visit:: Multifocal pnemonia *History of present illness: Shilpa House is a 74-year-old female past medical history significant for type 2 diabetes, CAD, anxiety, HLD, CHF, PAF who presents emergency room tonight with complaints of weakness, cough, diarrhea for the last couple of days. Patient lives with her son and [id number]. [id number] reports that she is a bit stubborn and sometimes noncompliant with her medications. Reports she has been having a productive cough for the last couple of days and is beginning progressively weaker. No known sick contacts. Does report she has been on antibiotics recently for UTI, just finished a 60-day course of Bactrim. Wears oxygen as needed at home when SpO2 drops below 88%. Does use a BiPAP at night. Denies headache, chest pain. No recent weight gain or weight loss, no swelling in her legs or feet. No focal neurodeficits noted. Denies tobacco use, alcohol use, illicit drug use. Was admitted for a UTI back in March, culture grew out Klebsiella. Lab work in the ER showed an elevated white count of 14.6, H&H chronically low but stable at 12 and 34. BUN slightly elevated 23, creatinine 1.1. UA showed 3+ leuk esterase, 10-20 WBCs but was negative for nitrites, 2+ bacteria. Chest x-ray shows a left lower lobe pneumonia, CT of the abdomen pelvis shows a multifocal pneumonia. Patient was given azithromycin and Rocephin as well as DuoNebs in the ER. Upon arrival, SpO2 sats were in the low 80s and she was placed on 2 L nasal cannula with improvement in her SpO2 up into the mid 90s. She will be admitted to the hospitalist service for acute hypoxic respiratory failure secondary to pneumonia. [facility] Disclaimer: The information contained in this section may have been updated after the patient was seen, as this information can be updated by other users. Medical History UTI (urinary tract infection) Adult failure to thrive Dyspnea Lumbar disc disease with radiculopathy Pneumonia Acute respiratory failure with hypoxia and hypercarbia Acute and chronic respiratory failure with hypoxia Iron deficiency anemia Hyponatremia Physical deconditioning Bacteremia CHF exacerbation Intermittent confusion Urinary incontinence Physical deconditioning Acute hip pain Low back pain Aortic stenosis Contrast media allergy Anemia Non-STEMI (non-ST elevated myocardial infarction) Acute on chronic diastolic heart failure Asthma exacerbation in COPD Restrictive lung disease Dyspnea on exertion Typical angina Atrial fibrillation Hypoxemia ERICKSON (obstructive sleep apnea) Nocturnal hypoxemia Oxygen supplementation ERICKSON (obstructive sleep apnea) Severe ERICKSON, chronic hypoxic respiratory failure, pulmonary hypertension, afib, morbidly obese, oxygen supplementation dependent without hypercapnia in June 2022. Compliant on BiPAP with O2. Increased drowsiness lately in the setting of difficulty with oxygen concentrator. Abnormal PFT COPD (chronic obstructive pulmonary disease) Active follow-up with pulmonology Dyspnea on exertion Restrictive lung disease Stopped smoking with greater than 30 pack year history Pulmonary hypertension Chronic hypoxemic respiratory failure Active follow-up with pulmonology History of 2019 novel coronavirus disease (COVID-19) Sleep disorder breathing Chronic pain Atrial fibrillation Diabetic neuropathy associated with type 2 diabetes mellitus Biventricular CHF (congestive heart failure) Severe pulmonary hypertension Pulmonary HTN Atypical angina Lumbar disc disease Atypical chest pain Sciatica associated with disorder of lumbar spine Lumbar radiculopathy, chronic Proliferative diabetic retinopathy Lumbar radiculopathy Pneumonia Morbid obesity with BMI of 40.0-44.9, adult Weakness Diarrhea Bilateral swelling of feet IDDM (insulin dependent diabetes mellitus) Lumbar radiculopathy, chronic Diabetic gastroparesis associated with type 2 diabetes mellitus Vertigo CHF (congestive heart failure) Hypothyroidism GERD (gastroesophageal reflux disease) Coronary artery disease Vitamin D deficiency Anxiety Depression Hyperlipidemia Hypertension Diabetes mellitus type 2 non insulin dep Surgical History History of lumpectomy History of eye surgery History of cataract surgery History of heart valve replacement Hx of CABG Family History Other Cancer Diabetes Heart attack Hyperlipidemia Hypertension Stroke Thyroid disorder Social History Smoking Status: Never smoker second hand exposure: No alcohol intake: never substance use type: denies use current occupational status: unemployed Travel in the last 8 weeks: None household members: children housing: house current occupational exposures/hazards: No caffeine: Yes Other Medical History Have you received the Flu Vaccine for this season: No Have you received the Pneumonia Vaccine: Yes Review of Systems Constitutional Constitutional: Reports fatigue, Reports poor appetite, Reports lethargy, Reports malaise and Reports weakness Eyes Eyes: Reports system reviewed and no additional complaints, except as documented ENT Ears, Nose, Mouth, and Throat: Reports system reviewed and no additional complaints, except as documented *Cardiovascular Cardiovascular: Reports system reviewed and no additional complaints, except as documented and Reports dyspnea *Respiratory Respiratory: Reports cough and Reports dyspnea *Gastrointestinal Gastrointestinal: Reports diarrhea *Genitourinary Genitourinary: Reports system reviewed and no additional complaints, except as documented *Musculoskeletal Musculoskeletal: Reports muscle weakness *Neurologic Neurologic: Reports weakness Endocrine Endocrine: Reports fatigue Meds Home Medications and Allergies Home Medications ?Medication ?Instructions ?Recorded ?Confirmed ?Type ascorbic acid (vitamin C) 500 mg 500 mg PO DAILY 09/26/23 06/17/24 History tablet (Vitamin C) buspirone 5 mg tablet 5 mg PO BID 09/26/23 06/17/24 History clopidogrel 75 mg tablet 75 mg PO DAILY 09/26/23 06/17/24 History ferrous sulfate 325 mg (65 mg 325 mg PO DAILY 09/26/23 06/17/24 History iron) tablet (iron) multivitamin 1 tab PO DAILY 09/26/23 06/17/24 History polyethylene glycol 3350 17 gram 17 g PO DAILY 09/26/23 06/17/24 History oral powder packet (Miralax) acetaminophen 500 mg tablet 500 mg PO Q6HP PRN Pain (Scale 09/27/23 06/17/24 History Score 1-3) cholecalciferol (vitamin D3) 25 1,000 unit PO BID 09/27/23 06/17/24 History mcg (1,000 unit) capsule cranberry 500 mg capsule 500 mg PO BID 03/08/24 06/17/24 History insulin aspar prot-insulin aspart 10 unit SQ DAILYP PRN BLOOD 03/28/24 06/17/24 History 100 unit/mL (70-30) subcutaneous GLUCOSE OVER 250 pen (Novolog Mix 70-30FlexPen U-100) dulaglutide 0.75 mg/0.5 mL 0.75 mg SQ WEEKLY 03/29/24 06/16/24 History subcutaneous pen injector (Trulicity) meclizine 25 mg tablet 25 mg PO BIDP PRN Dizziness Or 03/29/24 06/17/24 History Vertigo gabapentin 400 mg capsule 400 mg PO BID #60 caps 04/02/24 06/17/24 Rx atorvastatin 40 mg tablet 40 mg PO HS #90 tabs 04/03/24 06/17/24 Rx bisoprolol fumarate 5 mg tablet 2.5 mg (1/2 x 5 mg) PO DAILY #90 05/06/24 06/17/24 Rx tabs albuterol sulfate 90 mcg/actuation 2 puff inhalation QIDP PRN 06/17/24 06/17/24 History aerosol inhaler Shortness Of Breath Or Wheezing apixaban 5 mg tablet (Eliquis) 5 mg PO BID 06/17/24 06/17/24 History blood sugar diagnostic ([facility] 06/17/24 06/17/24 History Ultra Test strips) brexpiprazole 0.25 mg tablet 0.25 mg PO HS 06/17/24 06/17/24 History (Rexulti) bumetanide 1 mg tablet 1 mg PO BID 06/17/24 06/17/24 History fluticasone furoate 200 1 inh inhalation DAILY 06/17/24 06/17/24 History mcg-vilanterol 25 mcg/dose inhalation powder (Breo Ellipta) hydrocodone 5 mg-acetaminophen 325 1 tab PO BIDP PRN Pain (Scale 06/17/24 06/17/24 History mg tablet Score 4-6) icosapent ethyl 1 gram capsule 2 g PO BID 06/17/24 06/17/24 History (Vascepa) ipratropium 0.5 mg-albuterol 3 mg 3 ml inhalation QIDP PRN Shortness 06/17/24 06/17/24 History (2.5 mg base)/3 mL nebulization Of Breath Or Wheezing soln lancets 33 gauge ([facility] Delica 06/17/24 06/17/24 History Plus Lancet) levothyroxine 50 mcg tablet 50 mcg PO AM 06/17/24 06/17/24 History metoclopramide HCl 5 mg tablet 5 mg PO BID 06/17/24 06/17/24 History omeprazole 20 mg capsule,delayed 20 mg PO DAILY 06/17/24 06/17/24 History release ondansetron 8 mg disintegrating 8 mg PO Q12HP PRN Nausea And 06/17/24 06/17/24 History tablet Vomiting zinc acetate 50 mg (zinc) capsule 50 mg PO DAILY 06/17/24 06/17/24 History New Prescriptions to Start Prescriptions: Allergies Allergy/AdvReac Type Severity Reaction Status Date / Time Iodinated Contrast Media Allergy Intermediate Hives Verified 05/23/24 13:29 (Iodinated Contrast Media - IV Dye) celecoxib (From CELEBREX) Allergy Unknown SWELLING Verified 05/23/24 13:29 ibuprofen (IBUPROFEN) Allergy Unknown S-BLISTERING Verified 05/23/24 13:29 WELTS meloxicam (MELOXICAM) Allergy Unknown S-BLISTERING Verified 05/23/24 13:29 WELTS Penicillins (PENICILLINS) Allergy Unknown I-HIVES Verified 05/23/24 13:29 rofecoxib (From VIOXX) Allergy Unknown I-HIVES Verified 05/23/24 13:29 Exam Data for Last 24 hours Vital signs and Labs for Last 24 Hours: Temp Pulse Resp BP Pulse Ox O2 Del Method O2 Flow Rate 97.9 F 110 H 18 126/60 93 L Room Air 2 06/16/24 19:37 06/16/24 19:37 06/16/24 19:37 06/16/24 19:37 06/16/24 19:31 06/16/24 19:37 06/16/24 18:31 Laboratory Results - last 24 hr 06/16/24 16:34: WBC 14.6 H, RBC 4.17 L, Hgb 12.0 L, Hct 34.6 L, MCV 83.0, MCH 28.8, MCHC 34.7, RDW 16.0, Plt Count 188, MPV 7.3 L, Neut % (Auto) 84.6 H, Lymph % (Auto) 10.0, Waller % (Auto) 4.9, Eos % (Auto) 0.2, Baso % (Auto) 0.4, Neut # (Auto) 12.4 H, Lymph # (Auto) 1.5, Waller # (Auto) 0.7, Eos # (Auto) 0.0, Baso # (Auto) 0.1, Sodium 137, Potassium 3.6, Chloride 103, Carbon Dioxide 26, Anion Gap 11.6, BUN 23 H, Creatinine 1.10 H, Estimated Creat Clear 74, Estimated GFR 48 L, Est GFR ( Amer) 59, Glucose 208 H, Calcium 10.1, Total Bilirubin 0.8, AST 24, ALT 27, Alkaline Phosphatase 86, Total Protein 6.3, Albumin 3.4 L, Globulin 2.9, Albumin/Globulin Ratio 1.2, Lipase 19 L 06/16/24 16:53: Chlamy pneumoniae PCR Not detected, Adenovirus (PCR) Not detected, B. pertussis DNA (PCR) Not detected, Coronavirus OC43 (PCR) Not detected, Coronavirus HKU1 (PCR) Not detected, Coronavirus 229E (PCR) Not detected, SARS-CoV-2 (PCR) Not detected, Coronavirus NL63 (PCR) Not detected, Human Metapneumovir PCR Not detected, Influenza A (H1) PCR Not detected, Influ A (H1N1/09) PCR Not detected, Influenza A (H3) PCR Not detected, Influenza Type A (PCR) Not detected, Influenza Type B (PCR) Not detected, M. pneumoniae (PCR) Not detected, Parainfluenza 1 (PCR) Not detected, Parainfluenza 2 (PCR) Not detected, Parainfluenza 3 (PCR) Not detected, Parainfluenza 4 (PCR) Not detected, RSV (PCR) Not detected, Entero/Rhino (PCR) Not detected 06/16/24 17:46: Urine Color Yellow, Urine Appearance Clear, Urine pH 5.5, Ur Specific Lawrence 1.025, Urine Protein 2+ A, Urine Glucose (UA) Negative, Urine Ketones Negative, Urine Blood 2+ A, Urine Nitrate Negative, Urine Bilirubin Negative, Urine Urobilinogen 0.2, Ur Leukocyte Esterase 3+ A, Urine RBC 3-5, Urine WBC 10-20, Ur Squamous Epith Cells 3-5, Amorphous Sediment 1+, Urine Bacteria 2+ I & O for Last 24 hours: Intake & Output 06/13/24 06/14/24 06/15/24 06/16/24 23:59 23:59 23:59 23:59 Weight 106.594 kg *Routine HEENT Exam Head: Present normocephalic and atraumatic Eye: Present EOMI and PERRL ENT: Present mucous membranes moist *Routine Neck Exam Neck: Present supple and full ROM *Routine Respiratory Exam Respiratory: Present rhonchi (Throughout all lobes) *Routine Cardiovascular Exam Cardiovascular: Present Normal S1 and Normal S2 *Routine Abdominal Exam Abdominal: Present soft and normoactive bowel sounds *Routine Rectal Exam Rectal:: deferred *Routine Genitalia Exam Genitalia:: deferred *Routine Extremities Exam Extremities: Present pulses intact and normal capillary refill *Routine Skin Exam Skin: Present intact *Routine Neurological Exam Neurological: Present alert and normal speech Assessment and Plan *Assessment and plan (1) Pneumonia: Status: Acute Category: Medical Code(s): J18.9 - Pneumonia, unspecified organism (2) Acute UTI: Status: Acute Category: Medical Code(s): N39.0 - Urinary tract infection, site not specified (3) Paroxysmal atrial fibrillation: Status: Acute Category: Medical Code(s): I48.0 - Paroxysmal atrial fibrillation (4) (HFpEF) heart failure with preserved ejection fraction: Status: Acute Category: Medical Code(s): I50.30 - Unspecified diastolic (congestive) heart failure (5) Diabetes mellitus with diabetic neuropathy: Status: Chronic Qualifiers: Diabetes mellitus intermediate project manager insulin use: with intermediate project manager use Diabetes mellitus type: type 2 Qualified Code(s): E11.40 - Type 2 diabetes mellitus with diabetic neuropathy, unspecified; Z79.4 - half-way (current) use of insulin Category: Medical Code(s): E11.40 - Type 2 diabetes mellitus with diabetic neuropathy, unspecified (6) Acute and chronic respiratory failure with hypoxia: Status: Acute Category: Medical Code(s): J96.21 - Acute and chronic respiratory failure with hypoxia (7) Hypertension: Status: Chronic Qualifiers: Hypertension type: essential hypertension Qualified Code(s): I10 - Essential (primary) hypertension Category: Medical Code(s): I10 - Essential (primary) hypertension (8) Hyperlipidemia: Status: Chronic Qualifiers: Hyperlipidemia type: unspecified Qualified Code(s): E78.5 - Hyperlipidemia, unspecified Category: Medical Code(s): E78.5 - Hyperlipidemia, unspecified Plan Assessment: This is a 74-year-old female being admitted for acute hypoxic respiratory failure secondary to pneumonia. On my exam, patient is lying in bed on 2 L nasal cannula, in no acute distress. No complaints this time. Plan: Admit to inpatient-MedSurg Acute hypoxic respiratory failure Multifocal pneumonia -Continue azithromycin and Rocephin -DuoNebs every 6 hours -Mucinex -Out of bed as tolerated -Aggressive pulmonary toilet -Maintain SpO2 greater than 90%, supplemental oxygen as needed. Patient currently requiring 2 L nasal cannula, please wean oxygen as tolerated. PAF -Continue Eliquis, beta-pedro Type 2 diabetes Diabetic neuropathy -SSI for glycemic control -Carb consistent diet -Continue gabapentin Hypothyroid -Continue Synthroid ERICKSON COPD Pulmonary hypertension -Patient wears BiPAP at night, have placed an order for BiPAP at night, unsure of home settings HFpEF -Echo done in August showed an EF of 50 to 55%, RVSP at 40 mmHg -Continue Bumex -Patient appears euvolemic -Daily weights -Monitor fluid status closely Acute cystitis -Patient has been on a 60-day course of Bactrim recently -Unsure if her urine is colonized or if this is an acute infection, irregardless the antibiotics for her multifocal pneumonia will cover for UTI -Last culture grew out Klebsiella and was sensitive to cephalosporins -Urine culture pending DVT prophylaxis: Patricia CODE STATUS: Full code Surrogate decision maker: Asad [phone] Skin: High risk Estimate length of stay: Greater than 2 midnights Rounded on patient after nurse practitioner. Personally examined and interviewed patient. Agree with exam findings and care plan as documented.
--- NOTE | 2024-06-16 20:02 | PC.NURSE ---
pt arrived to floor via stretcher @20:01
[2024-06-16] MEDS: humaLOG 100 UNITS/ML 10ML VIAL (SSI) SUBCUT (21:42)
[2024-06-16] MEDS: ATORVASTATIN 40MG TABLET 40 MG PO (21:42)
[2024-06-16] MEDS: GABAPENTIN 400MG CAPSULE 400 MG PO (21:42)
[2024-06-16] MEDS: BUSPIRONE HCL 5 MG TABLET PO (21:44)
[2024-06-16] MEDS: METOCLOPRAMIDE 5MG TABLET 5 MG PO (21:45)
[2024-06-16] MEDS: IPRATROPIUM/ALBUTEROL 3 ML NEB IH (22:59)
[2024-06-17] VITALS (10 sets, daily range): BP systolic 109–130; BP diastolic 54–70; PULSE 71–87; RESP 17–18; TEMP 36.7–37.4; O2SAT 91–97; BMI 40.9
[2024-06-17] MEDS: humaLOG 100 UNITS/ML 10ML VIAL (SSI) SUBCUT ×4 (06:06→19:59)
[2024-06-17 06:14] LABS: Basophils % 0.2 % (0.1-2.0); Eosinophils # 0.1 K/mm3 (0.0-0.4); Eosinophils % 0.9 % (0.1-12.0); Hematocrit 31.3 % (37.0-47.0); Hemoglobin 10.9 g/dL (12.2-16.2); Lymphocytes # 1.4 K/mm3 (0.7-4.5); Lymphocytes % 13.3 % (10-50); Mean Corpuscular HGB Conc 34.7 g/dL (31.8-35.4); Mean Corpuscular Hemoglobin 29.2 pg (27.0-31.2); Mean Corpuscular Volume 83.9 fl (81-99); Mean Platelet Volume 7.3 fl (7.4-10.4); Monocytes # 0.5 K/mm3 (0.1-1.0); Monocytes % 4.3 % (1.7-9.3); Neutrophils # 8.9 K/mm3 (1.8-7.8); Neutrophils % 81.4 % (37.0-80.0); Platelet Count 162 K/mm3 (142-424); Red Blood Count 3.74 M/mm3 (4.20-5.40); Red Cell Distribution Width 16.1 % (11.5-17.5); White Blood Count 10.9 K/mm3 (4.8-10.8)
[2024-06-17] MEDS: IPRATROPIUM/ALBUTEROL 3 ML NEB IH ×3 (06:23→18:44)
[2024-06-17 06:26] LABS: Chloride 108 mmol/L (98-107); Sodium 137 mmol/L (136-145)
[2024-06-17 06:27] LABS: Potassium 3.3 mmoL/L (3.5-5.1)
[2024-06-17 06:30] LABS: Anion Gap 4.3 mEq/L (5-15); Blood Urea Nitrogen 24 mg/dl (7-17); Calcium 9.7 mg/dl (8.4-10.2); Carbon Dioxide 28 mmol/L (22.0-30.0); Creatinine Clearance Estimated 38 mL/min (50-200); Estimated Glomerular Filt Rate 48 ml/min (>60); GFR (African American) 59 ML/MIN (>60); Glucose 154 mg/dl (74-100)
[2024-06-17] MEDS: METOCLOPRAMIDE 5MG TABLET 5 MG PO ×2 (08:27→20:00)
[2024-06-17] MEDS: ASCORBIC ACID 500MG TAB 500 MG PO (08:27)
[2024-06-17] MEDS: LEVOTHYROXINE 50MCG (0.05MG) TAB 50 MCG PO (08:27)
[2024-06-17] MEDS: CLOPIDOGREL 75MG TAB 75 MG PO (08:27)
[2024-06-17] MEDS: GABAPENTIN 400MG CAPSULE 400 MG PO ×2 (08:27→20:00)
[2024-06-17] MEDS: BUMETANIDE 1 MG TABLET PO ×2 (08:27→19:59)
[2024-06-17] MEDS: APIXABAN 5MG TABLET 5 MG PO ×2 (08:28→20:00)
[2024-06-17] MEDS: FERROUS SULFATE 325MG TABLET 325 MG PO (08:28)
[2024-06-17] MEDS: BISOPROLOL 5MG TABLET 2.5 MG PO (08:28)
[2024-06-17] MEDS: POLYETHYLENE GLYCOL 3350 17 GM PACKET PO (08:28)
--- NOTE | 2024-06-17 10:03 | EXP.ACUTE.PN ---
Subjective *Date: 06/17/24 *Time: 21:52 Interval history: Patient still weak this morning. Stable on 2-1/2 L oxygen. Therapy evaluating today. White count normal. No fever overnight. No nausea or vomiting. At her baseline level of chronic illness. Medical Exam Vital signs and Labs for Last 24 Hours: Vital Signs Temp Pulse Pulse Resp BP BP Pulse Ox 06/17/24 08:00 98.1 F 87 17 115/54 L 93 L 06/17/24 06:53 06/17/24 06:25 71 06/17/24 06:25 71 06/17/24 06:25 96 06/17/24 05:00 06/17/24 04:00 99.4 F 80 18 130/55 L 97 06/17/24 02:58 06/17/24 00:39 06/17/24 00:00 98.2 F 76 17 127/56 L 95 06/16/24 23:11 77 06/16/24 22:44 06/16/24 21:00 06/16/24 20:23 97.7 F 78 17 126/60 97 06/16/24 20:11 06/16/24 20:00 06/16/24 19:37 97.9 F 110 H 18 126/60 06/16/24 19:31 113 H 126/60 93 L 06/16/24 19:01 74 146/66 H 97 06/16/24 18:31 76 143/62 H 98 06/16/24 18:00 71 138/62 98 06/16/24 17:47 79 136/68 95 06/16/24 17:30 76 156/72 H 97 06/16/24 17:00 69 143/60 H 99 06/16/24 16:35 70 140/59 L 97 06/16/24 16:26 73 164/75 H 95 06/16/24 16:22 99.1 F 74 13 164/75 H 92 L O2 Del Method O2 Flow Rate 06/17/24 08:00 06/17/24 06:53 Nasal Cannula 2.5 06/17/24 06:25 06/17/24 06:25 06/17/24 06:25 Nasal Cannula 2.5 06/17/24 05:00 Nasal Cannula 2.5 06/17/24 04:00 Nasal Cannula 2.5 06/17/24 02:58 Nasal Cannula 2.5 06/17/24 00:39 Nasal Cannula 2.5 06/17/24 00:00 Nasal Cannula 2.5 06/16/24 23:11 06/16/24 22:44 Nasal Cannula 2.5 06/16/24 21:00 Nasal Cannula 2.5 06/16/24 20:23 Nasal Cannula 3 06/16/24 20:11 Nasal Cannula 2.5 06/16/24 20:00 Nasal Cannula 2.5 06/16/24 19:37 Room Air 06/16/24 19:31 06/16/24 19:01 06/16/24 18:31 Nasal Cannula 2 06/16/24 18:00 Nasal Cannula 2 06/16/24 17:47 Nasal Cannula 23 06/16/24 17:30 Nasal Cannula 2 06/16/24 17:00 Nasal Cannula 2 06/16/24 16:35 Nasal Cannula 2 06/16/24 16:26 Nasal Cannula 2 06/16/24 16:22 Room Air Intake and Output 06/16/24 06/17/24 06/17/24 23:59 07:59 15:59 Intake Total 180 / 180 Output Total 200 / 200 Balance -20 / -20 Intake: Intake, Oral Amount 180 / 180 Output: Output, Urine Amount 200 / 200 Other: Number of Unmeasured Voids 0 Weight 109 kg 111.4 kg Patient Weight 06/17/24 23:59 Weight 111.4 kg Laboratory Results - last 24 hr 06/16/24 16:34: WBC 14.6 H, RBC 4.17 L, Hgb 12.0 L, Hct 34.6 L, MCV 83.0, MCH 28.8, MCHC 34.7, RDW 16.0, Plt Count 188, MPV 7.3 L, Neut % (Auto) 84.6 H, Lymph % (Auto) 10.0, [place] % (Auto) 4.9, Eos % (Auto) 0.2, Baso % (Auto) 0.4, Neut # (Auto) 12.4 H, Lymph # (Auto) 1.5, [place] # (Auto) 0.7, Eos # (Auto) 0.0, Baso # (Auto) 0.1, Sodium 137, Potassium 3.6, Chloride 103, Carbon Dioxide 26, Anion Gap 11.6, BUN 23 H, Creatinine 1.10 H, Estimated Creat Clear 74, Estimated GFR 48 L, Est GFR ( Amer) 59, Glucose 208 H, Calcium 10.1, Total Bilirubin 0.8, AST 24, ALT 27, Alkaline Phosphatase 86, Total Protein 6.3, Albumin 3.4 L, Globulin 2.9, Albumin/Globulin Ratio 1.2, Lipase 19 L 06/16/24 16:53: Chlamy pneumoniae PCR Not detected, Adenovirus (PCR) Not detected, B. pertussis DNA (PCR) Not detected, Coronavirus OC43 (PCR) Not detected, Coronavirus HKU1 (PCR) Not detected, Coronavirus 229E (PCR) Not detected, SARS-CoV-2 (PCR) Not detected, Coronavirus NL63 (PCR) Not detected, Human Metapneumovir PCR Not detected, Influenza A (H1) PCR Not detected, Influ A (H1N1/09) PCR Not detected, Influenza A (H3) PCR Not detected, Influenza Type A (PCR) Not detected, Influenza Type B (PCR) Not detected, M. pneumoniae (PCR) Not detected, Parainfluenza 1 (PCR) Not detected, Parainfluenza 2 (PCR) Not detected, Parainfluenza 3 (PCR) Not detected, Parainfluenza 4 (PCR) Not detected, RSV (PCR) Not detected, Entero/Rhino (PCR) Not detected 06/16/24 17:46: Urine Color Yellow, Urine Appearance Clear, Urine pH 5.5, Ur Specific [place] 1.025, Urine Protein 2+ A, Urine Glucose (UA) Negative, Urine Ketones Negative, Urine Blood 2+ A, Urine Nitrate Negative, Urine Bilirubin Negative, Urine Urobilinogen 0.2, Ur Leukocyte Esterase 3+ A, Urine RBC 3-5, Urine WBC 10-20, Ur Squamous Epith Cells 3-5, Amorphous Sediment 1+, Urine Bacteria 2+ 06/17/24 05:27: WBC 10.9 H D, RBC 3.74 L, Hgb 10.9 L, Hct 31.3 L, MCV 83.9, MCH 29.2, MCHC 34.7, RDW 16.1, Plt Count 162, MPV 7.3 L, Neut % (Auto) 81.4 H, Lymph % (Auto) 13.3, [place] % (Auto) 4.3, Eos % (Auto) 0.9, Baso % (Auto) 0.2, Neut # (Auto) 8.9 H, Lymph # (Auto) 1.4, [place] # (Auto) 0.5, Eos # (Auto) 0.1, Baso # (Auto) 0.0, Sodium 137, Potassium 3.3 L, Chloride 108 H, Carbon Dioxide 28, Anion Gap 4.3 L, BUN 24 H, Creatinine 1.10 H, Estimated Creat Clear 38, Estimated GFR 48 L, Est GFR ( Amer) 59, Glucose 154 H D, Calcium 9.7 I & O for Labs for Last 24 Hours: Intake & Output 06/14/24 06/15/24 06/16/24 06/17/24 23:59 23:59 23:59 23:59 Intake Total 180 / 180 Output Total 200 / 200 Balance -20 / -20 Weight 109 kg 111.4 kg Microbiology Reports for the Last 24 Hours: Microbiology 06/16/24 17:46 Urine,Clean Catch Urine Culture - Preliminary Constitutional: Present no acute distress, morbidly obese, chronically ill appearing and cooperative Head: Present atraumatic ENT: Present normal exam Comment:: Cushingoid face Neck: Present normal inspection and full ROM Respiratory: Present rhonchi, distant breath sounds, diminished air movement and symmetric chest movement; Absent wheezes or crackles Cardiac: Present Reg Rate and Rhythm GI: Present soft; Absent tenderness Rectal (female): Present deferred (female): Present deferred Extremities: Present full ROM and edema (trace) Skin: Present intact Neuro: Present alert, awake and moves all extremities Assessment and Plan *Assessment and plan (1) Pneumonia: Status: Acute Category: Medical Code(s): J18.9 - Pneumonia, unspecified organism (2) Acute UTI: Status: Acute Category: Medical Code(s): N39.0 - Urinary tract infection, site not specified (3) Paroxysmal atrial fibrillation: Status: Acute Category: Medical Code(s): I48.0 - Paroxysmal atrial fibrillation (4) (HFpEF) heart failure with preserved ejection fraction: Status: Acute Category: Medical Code(s): I50.30 - Unspecified diastolic (congestive) heart failure (5) Diabetes mellitus with diabetic neuropathy: Status: Chronic Qualifiers: 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: with petroleum terminal plant operator use Diabetes mellitus type: type 2 Qualified Code(s): E11.40 - Type 2 diabetes mellitus with diabetic neuropathy, unspecified; Z79.4 - terminal clerk (current) use of insulin Category: Medical Code(s): E11.40 - Type 2 diabetes mellitus with diabetic neuropathy, unspecified (6) Acute and chronic respiratory failure with hypoxia: Status: Acute Category: Medical Code(s): J96.21 - Acute and chronic respiratory failure with hypoxia (7) Hypertension: Status: Chronic Qualifiers: Hypertension type: essential hypertension Qualified Code(s): I10 - Essential (primary) hypertension Category: Medical Code(s): I10 - Essential (primary) hypertension (8) Hyperlipidemia: Status: Chronic Qualifiers: Hyperlipidemia type: unspecified Qualified Code(s): E78.5 - Hyperlipidemia, unspecified Category: Medical Code(s): E78.5 - Hyperlipidemia, unspecified Plan 74-year-old female being admitted for acute hypoxic respiratory failure secondary to pneumonia. On my exam, patient is lying in bed on 2 L nasal cannula, in no acute distress. No complaints this time. Awaiting therapy eval. Continues to require inpatient management. Continuing broad-spectrum antibiotics. Problems addressed as follows: Acute hypoxic respiratory failure Multifocal pneumonia -Continue azithromycin and Rocephin based on previous cultures. Continue DuoNebs every 6 hours. Out of bed as tolerated. -Supplemental oxygen as needed, goal sats greater than 90%. Currently on 2-3 L. -Sputum and blood cultures pending -Repeat CBC, CMP, magnesium ordered for the morning. PAF: Continue Eliquis 5 mg twice daily and bisoprolol 2-1/2 mg daily Type 2 diabetes Diabetic neuropathy -SSI for glycemic control -Fingersticks ACHS. Consider initiation of long-acting insulin pending serial glucose -Carb consistent diet -Continue gabapentin -Morning glucose 154. Hypothyroid: Continue levothyroxine 50 mcg daily [place] COPD Pulmonary hypertension -Patient wears BiPAP at night, have placed an order for BiPAP at night, unsure of home settings -Continue DuoNebs every 6 hours HFpEF -Echo done in August showed an EF of 50 to 55%, RVSP at 40 mmHg -Continue Bumex 1 mg p.o. twice daily -Patient appears euvolemic -Daily weights -Monitor fluid status closely Acute cystitis -Patient has been on a 60-day course of Bactrim recently -Unsure if her urine is colonized or if this is an acute infection, irregardless the antibiotics for her multifocal pneumonia will cover for UTI -Last culture grew out Klebsiella and was sensitive to cephalosporins -Urine culture pending -Kidney function normal with BUN 24, creatinine 1.1. At baseline for patient. DVT prophylaxis: Eliquis CODE STATUS: Full code Surrogate decision maker: Asad [phone] Skin: High risk Estimate length of stay: Greater than 2 midnights
--- NOTE | 2024-06-17 10:24 | HMH.PHAINT1 ---
Pharmacy Intervention Comments: HOME MEDICATIONS VERIFIED VIA OUTPATIENT PHARMACY AND PATIENT'S DAUGHTER
[2024-06-17 11:45] LABS: POC Glucose,Bedside 186 (70-110)
[2024-06-17 12:32] LABS: POC Glucose,Bedside 182 (70-110)
[2024-06-17 12:32] LABS: POC Glucose,Bedside 165 (70-110)
--- NOTE | 2024-06-17 13:49 | HMH.PTEV ---
Physical Therapy Evaluation Rehab PT IP Evaluation Start: 06/17/24 10:01 Freq: ONCE Status: Active Protocol: Document 06/17/24 13:33 PHODANNI (Rec: 06/17/24 13:49 PHORDANDRE [id number]) Subjective/History History History Pt is a 74-year-old female past medical history significant for type 2 diabetes, CAD, anxiety, HLD, CHF, PAF who presents w/ pneumonia and global weakness. Patient lives with her son and [id number]. Pt states she uses a walker at home for ambulation. She reports having steps but avoids using them. Pt reports using 2 to 2. 5 L O2 at home. Subjective Subjective Pt presents semi-reclined in bed this afternoon. Pt is alert and oriented x3, and consents to therapy services this date. Rehab PT IP Eval Objective Appearance Patient Behavior Appropriate,Cooperative, Anxious Patient Orientation Person,Place,Birthday Difficulty following instructions none Speech Pattern Clear,Appropriate,Coherent Ambulation Patient Able to Ambulate No Balance Ability to Arise Able, uses arms to help Dynamic Sitting Balance Ability Poor Dynamic Standing Balance Ability Poor Transfers Bed Transfer Ability Moderate x 2 (50% assist) Sit to Stand Bed Transfer Ability Minimal x 2 (25% assist) Rehab PT IP prob,goals,plan Problems Date of Evaluation: 06/17/24 PT IP Problems Bed Mobility,Transfers,Gait, Balance Rehab Potential Rehab Potential Good Plan PT Intervention Plan Bed Mobility,Transfers,Gait, Balance,Therapeutic Exercise PT Plan Frequency BID Duration LOS Discharge Goals Bed Transfer Ability Moderate x 1 (50% assist) Sit to Stand Chair Transfer Ability Minimal x 1 (25% assist) Ambulation Assistive Device Rolling Walker Ambulation Distance (feet) 10 Discharge Plan PT Discharge Plan Currently, pt is most appropriate for rehab placement once medically stable for d/c. Pt demonstrates poor static sitting balance due to requiring HH assist once on EOB. Pt requires verbal cues for UE/LE placement for transfers and bed mobility, along w/ increasing pt confidence for attempting task . Pt would benefit from PT services to increase bed mobility, transfers, gait, and balance. Eval Complexity Eval Charge Codes 19949 - High Complexity PHYSICIAN CERTIFICATION: I certify the specified therapy services for Shilparashel Moralezmony are required, authorized, and reviewed every 30 days.
--- NOTE | 2024-06-17 13:53 | HMH.OTEV ---
OT Inpatient Evaluation Rehab OT IP Evaluation Start: 06/17/24 10:01 Freq: ONCE Status: Active Protocol: Document 06/17/24 13:46 [facility] (Rec: 06/17/24 13:53 [facility] [id number]) Rehab OT IP Assessment Subjective History Pt oriented x 3 on arrival. Pt agreeable to engage in therapy evaluation upon arrival. Pt admitted on 06/16 due to UTI and PNA. History and physical: Shilpa House is a 74-year -old female past medical history significant for type 2 diabetes, CAD, anxiety, HLD, CHF, PAF who presents emergency room tonight with complaints of weakness, cough, diarrhea for the last couple of days. Patient lives with her son and tlriqzre-[id number]. Trjueufz-dp-nil reports that she is a bit stubborn and sometimes noncompliant with her medications. Reports she has been having a productive cough for the last couple of days and is beginning progressively weaker. No known sick contacts. Does report she has been on antibiotics recently for UTI, just finished a 60-day course of Bactrim. Wears oxygen as needed at home when SpO2 drops below 88%. Does use a BiPAP at night. Denies headache, chest pain. No recent weight gain or weight loss, no swelling in her legs or feet. No focal neurodeficits noted. Denies tobacco use, alcohol use, illicit drug use. Was admitted for a UTI back in March, culture grew out Klebsiella. Subjective I don't know if I can do that . Pt resting in bed on arrival. Pt reports normally she lives at home with her son and daughter in law. Pt claims normally she requires assistance with ADLs such as dressing and bathing. Pt is dependent upon family for completion of all IADLs. Pt uses a rolling walker for transfers, but is usually able to transfer herself. She is also on oxygen at home. Objective Patient Orientation Person,Place,Birthday Right Upper Extremity Gross ROM Min Limitation <25% Left Upper Extremity Gross ROM Min Limitation <25% Shoulder ROM Limitations Muscle Weakness Elbow ROM Limitations Muscle Weakness Wrist Limitations of Range of Motion Muscle Weakness Bed Mobility bed mobility-scooting,bed mobility - supine/sit Assist Level Moderate x 2 (50% assist) Transfer Training Sit/Stand/Step Transfer Assist Level Moderate x 2 (50% assist) Rehab OT IP prob,goals,plan Problems Date of Evaluation: 06/17/24 OT IP Problems Bed Mobility,Transfers,Balance ,Self care,Safety Rehab Potential Rehab Potential Good Equipment Needs Assistive Devices Rolling / Wheeled Walker Plan OT intervention Plan Bed Mobility,Transfers,Balance ,Self care,Safety,Therapeutic Exercise OT Plan Frequency Daily Duration LOS Discharge Goals Bed Mobility Ability Assistance x1 Sit to Stand Chair Transfer Ability Minimal x 1 (25% assist) Chair Transfer Ability Minimal x 1 (25% assist) Chair Transfer Technique Sit to/from Ambulatory Chair Transfer Assistive Devices Rolling Walker Feeding Ability Assist with Tray Set Up Lower Body Dressing Ability Maximum Assistance Upper Body Dressing Ability Minimal Assistance Bathing Ability Maximum Assistance Performing Toilet Hygiene Ability Maximum Assistance Overall Commode/Toilet Transfer Ability Minimal Assistance Commode/Toilet Transfer Technique Sit to/from Ambulatory Commode/Toilet Transfer Assistive Grab Bars Devices Oral Care Assist Minimal Assistance Decrease in Endurance Yes Discharge Plan OT Discharge Plan Pt will continue to be seen for OT services while at [facility]. Pt would benefit most from short term rehab placement at SNF following hospital stay. However, if family or patient reluctant to this plan, therapist recommends OT evaluation upon returning home . Continued skilled therapy is important in order for patient to improve strength, safety, endurance, ADL independence, and functional transfers to reach PLOF. Eval Complexity Eval Charge Codes 44825 - Moderate Complexity PHYSICIAN CERTIFICATION: I certify the specified therapy services for Shilpa Armas are required, authorized, and reviewed every 30 days.
[2024-06-17] MEDS: CEFTRIAXONE SODIUM 1 GM in 0.9 % SODIUM CHLORIDE 50 ML IV (14:09)
[2024-06-17] MEDS: AZITHROMYCIN 500 MG in 0.9 % SODIUM CHLORIDE 250 ML 250 MG IV (15:20)
[2024-06-17 16:20] LABS: POC Glucose,Bedside 202 (70-110)
[2024-06-17] MEDS: BUSPIRONE HCL 5 MG TABLET PO (20:00)
[2024-06-17] MEDS: ACETAMINOPHEN 325MG TAB 650 MG PO (20:00)
[2024-06-17] MEDS: ATORVASTATIN 40MG TABLET 40 MG PO (20:00)
[2024-06-17 20:01] LABS: POC Glucose,Bedside 204 (70-110)
[2024-06-18] VITALS (7 sets, daily range): BP systolic 106–145; BP diastolic 50–89; PULSE 65–89; RESP 17–18; TEMP 36.7–37.1; O2SAT 91–97; BMI 40.1
[2024-06-18 05:55] LABS: POC Glucose,Bedside 161 (70-110)
[2024-06-18] MEDS: IPRATROPIUM/ALBUTEROL 3 ML NEB IH ×3 (06:18→11:53)
[2024-06-18] MEDS: humaLOG 100 UNITS/ML 10ML VIAL (SSI) SUBCUT ×2 (06:25→10:27)
[2024-06-18 06:30] LABS: Basophils % 0.2 % (0.1-2.0); Eosinophils # 0.1 K/mm3 (0.0-0.4); Eosinophils % 1.6 % (0.1-12.0); Hematocrit 30.8 % (37.0-47.0); Hemoglobin 10.6 g/dL (12.2-16.2); Lymphocytes # 1.3 K/mm3 (0.7-4.5); Lymphocytes % 14.5 % (10-50); Mean Corpuscular HGB Conc 34.4 g/dL (31.8-35.4); Mean Corpuscular Hemoglobin 29.1 pg (27.0-31.2); Mean Corpuscular Volume 84.4 fl (81-99); Mean Platelet Volume 7.5 fl (7.4-10.4); Monocytes # 0.5 K/mm3 (0.1-1.0); Neutrophils # 6.9 K/mm3 (1.8-7.8); Neutrophils % 77.6 % (37.0-80.0); Platelet Count 152 K/mm3 (142-424); Red Blood Count 3.65 M/mm3 (4.20-5.40); Red Cell Distribution Width 15.9 % (11.5-17.5); White Blood Count 8.9 K/mm3 (4.8-10.8)
[2024-06-18 06:38] LABS: Alanine Aminotransferase 18 U/L (12-78); Albumin Level 2.9 g/dl (3.5-5.0); Albumin/Globulin Ratio 1.1 (1.1-1.8); Alkaline Phosphatase 86 U/L (38-126); Anion Gap 9.3 mEq/L (5-15); Aspartate Amino Transferase 22 U/L (14-36); Bilirubin,Total 0.5 mg/dl (0.2-1.3); Blood Urea Nitrogen 20 mg/dl (7-17); Calcium 9.2 mg/dl (8.4-10.2); Carbon Dioxide 28 mmol/L (22.0-30.0); Chloride 107 mmol/L (98-107); Creatinine Clearance Estimated 42 mL/min (50-200); Estimated Glomerular Filt Rate 70 ml/min (>60); GFR (African American) 85 ML/MIN (>60); Globulin 2.7 g/dL (1.3-3.2); Glucose 158 mg/dl (74-100); Magnesium 1.7 mg/dl (1.6-2.3); Potassium 3.3 mmoL/L (3.5-5.1); Sodium 141 mmol/L (136-145); Total Protein,Serum 5.6 g/dl (6.3-8.2)
[2024-06-18] MEDS: LEVOTHYROXINE 50MCG (0.05MG) TAB 50 MCG PO (06:55)
--- NOTE | 2024-06-18 08:08 | SW/DCPLANNER ---
Addendum entered by Maria Elena [place] 06/18/24 12:21: [facility] and [facility] are unable to accept patient. I will update patient/family that home health will not be established at time of discharge. Addendum entered by Maria Elena [place] 06/18/24 11:35: [facility] and [facility] are unable to accept this patient. Patient information/order has been faxed to Shaista buckley/ [facility]. Addendum entered by [facility] 06/18/24 11:10: Patient information/order has been faxed to [facility]. Original Note: I spoke w/ patient and her son regarding plans once medically stable for discharge. PT/OT evaluated patient and recommended placement. Patient was very tearful during conversation stating that she is not currently interested in placement and wants to return home w/ son and daughter in law. Patient is agreeable for me to call and discuss w/ her son. I contacted patient's son via phone. Son stated that he prefer patient return home w/ him, someone is home w/ patient 24-7 and they would be agreeable to home health. I discussed how last admission (two months) ago I was not able to find a home health agency to accept but I will work on establishing home health services at time of discharge. Patient is agreeable w/ this plan. Discharge date is unknown at this time. I will continue to follow up w/ MD, patient, and family.
[2024-06-18] MEDS: GABAPENTIN 400MG CAPSULE 400 MG PO (08:20)
[2024-06-18] MEDS: POLYETHYLENE GLYCOL 3350 17 GM PACKET PO (08:20)
[2024-06-18] MEDS: BUMETANIDE 1 MG TABLET PO (08:21)
[2024-06-18] MEDS: FERROUS SULFATE 325MG TABLET 325 MG PO (08:21)
[2024-06-18] MEDS: APIXABAN 5MG TABLET 5 MG PO (08:21)
[2024-06-18] MEDS: BISOPROLOL 5MG TABLET 2.5 MG PO (08:21)
[2024-06-18] MEDS: ASCORBIC ACID 500MG TAB 500 MG PO (08:21)
[2024-06-18] MEDS: METOCLOPRAMIDE 5MG TABLET 5 MG PO (08:21)
[2024-06-18] MEDS: CLOPIDOGREL 75MG TAB 75 MG PO (08:21)
--- NOTE | 2024-06-18 12:22 | P.DS_ITS ---
General Admission date:: 06/16/24 HPI HPI HPI: Shilpa House is a 74-year-old female past medical history significant for type 2 diabetes, CAD, anxiety, HLD, CHF, PAF who presents emergency room tonight with complaints of weakness, cough, diarrhea for the last couple of days. Patient lives with her son and [id number]. [id number] reports that she is a bit stubborn and sometimes noncompliant with her medications. Reports she has been having a productive cough for the last couple of days and is beginning progressively weaker. No known sick contacts. Does report she has been on antibiotics recently for UTI, just finished a 60-day course of Bactrim. Wears oxygen as needed at home when SpO2 drops below 88%. Does use a BiPAP at night. Denies headache, chest pain. No recent weight gain or weight loss, no swelling in her legs or feet. No focal neurodeficits noted. Denies tobacco use, alcohol use, illicit drug use. Was admitted for a UTI back in March, culture grew out Klebsiella. Lab work in the ER showed an elevated white count of 14.6, H&H chronically low but stable at 12 and 34. BUN slightly elevated 23, creatinine 1.1. UA showed 3+ leuk esterase, 10-20 WBCs but was negative for nitrites, 2+ bacteria. Chest x-ray shows a left lower lobe pneumonia, CT of the abdomen pelvis shows a multifocal pneumonia. Patient was given azithromycin and Rocephin as well as DuoNebs in the ER. Upon arrival, SpO2 sats were in the low 80s and she was placed on 2 L nasal cannula with improvement in her SpO2 up into the mid 90s. She will be admitted to the hospitalist service for acute hypoxic respiratory failure secondary to pneumonia. Hospital Course Hospital Course Hospital Course: Shilpa Armas is 74-year-old female being admitted for acute hypoxic respiratory failure secondary to pneumonia. On my exam, patient is lying in bed on 2 L nasal cannula, in no acute distress. No complaints this time. Awaiting therapy eval. Continues to require inpatient management. Continuing broad- spectrum antibiotics. Problems addressed as follows: #Acute hypoxic respiratory failure #Multifocal pneumonia - Clinically improved with rocephin and azithromycin for 2 days. Weaned back to room air from 3L. - WBC improved from 14.6 to 8.9. Vital signs stable. - Discharged with Levaquin for 3 days. #Acute cystitis - Patient has been on a 60-day course of Bactrim recently - Unsure if her urine is colonized or if this is an acute infection, irregardl ess the antibiotics for her multifocal pneumonia will cover for UTI. - Urine culture showed multiple organisms suggesting contamination. #PAF - Continue Eliquis 5 mg twice daily and bisoprolol 2.5 mg daily #Type 2 diabetes #Diabetic neuropathy - SSI for glycemic control - Fingersticks ACHS. - Continue home regimen. #Hypothyroid - Continue levothyroxine 50 mcg daily #ERICKSON #COPD #Pulmonary hypertension - Continue Bipap nightly. #HFpEF - Echo done in August showed an EF of 50 to 55%, RVSP at 40 mmHg - Continue Bumex 1 mg p.o. twice daily - Patient appears euvolemic - Daily weights - Monitor fluid status closely Exam Data for Last 24 hours Vital signs and Labs for Last 24 Hours: Temp Pulse Resp BP Pulse Ox O2 Del Method O2 Flow Rate 98.1 F 67 17 106/64 L 92 L Room Air 3 06/18/24 12:00 06/18/24 12:00 06/18/24 12:00 06/18/24 12:00 06/18/24 12:00 06/18/24 12:17 06/18/24 10:07 Laboratory Results - last 24 hr 06/16/24 21:30: POC Glucose 182 H 06/17/24 06:00: POC Glucose 165 H 06/17/24 16:07: POC Glucose 202 H 06/17/24 19:53: POC Glucose 204 H 06/18/24 05:35: WBC 8.9, RBC 3.65 L, Hgb 10.6 L, Hct 30.8 L, MCV 84.4, MCH 29.1, MCHC 34.4, RDW 15.9, Plt Count 152, MPV 7.5, Neut % (Auto) 77.6, Lymph % (Auto) 14.5, [place] % (Auto) 6.0, Eos % (Auto) 1.6, Baso % (Auto) 0.2, Neut # (Auto) 6.9, Lymph # (Auto) 1.3, [place] # (Auto) 0.5, Eos # (Auto) 0.1, Baso # (Auto) 0.0, Sodium 141, Potassium 3.3 L, Chloride 107, Carbon Dioxide 28, Anion Gap 9.3, BUN 20 H, Creatinine 0.80 D, Estimated Creat Clear 42, Estimated GFR 70, Est GFR ( Amer) 85 D, Glucose 158 H, Calcium 9.2, Magnesium 1.7, Total Bilirubin 0.5, AST 22, ALT 18 D, Alkaline Phosphatase 86, Total Protein 5.6 L, Albumin 2.9 L, Globulin 2.7, Albumin/Globulin Ratio 1.1 06/18/24 05:46: POC Glucose 161 H I & O for Last 24 hours: Intake & Output 06/15/24 06/16/24 06/17/24 06/18/24 23:59 23:59 23:59 23:59 Intake Total 1500 / 1500 480 / 480 Output Total 200 / 800 1300 / 1300 Balance 1300 / 700 -820 / -820 Weight 109 kg 111.4 kg 109.452 kg Microbiology Reports for the Last 24 Hours: Microbiology 06/16/24 19:07 Blood Blood Culture - Preliminary 06/17/24 10:00 Sputum - Expectorated Sputum Gram Stain - Final 06/17/24 10:00 Sputum - Expectorated Sputum Sputum Culture - Preliminary 06/16/24 17:46 Urine,Clean Catch Urine Culture - Final Multiple organisms, suggests contamination. 06/16/24 19:07 Blood Blood Culture - Preliminary NO GROWTH AFTER 24 HOURS Constitutional Constitutional: no acute distress and obese *Routine HEENT Exam Head: Present normocephalic Eye: Present EOMI and PERRL ENT: Present mucous membranes moist *Routine Neck Exam Neck: Present supple; Absent lymphadenopathy *Routine Respiratory Exam Respiratory: Present CTA bilaterally *Routine Cardiovascular Exam Cardiovascular: Present RRR *Routine Abdominal Exam Abdominal: Present soft and normoactive bowel sounds; Absent tenderness *Routine Extremities Exam Extremities: Absent cyanosis, clubbing or edema *Routine Skin Exam Skin: Present warm; Absent rash *Routine Neurological Exam Neurological: Present alert and oriented X3 Results Data Completed and Pending Labs on day of discharge: Labs from last 24 hours 06/18/24 06/18/24 06/17/24 05:46 05:35 19:53 WBC 8.9 RBC 3.65 L Hgb 10.6 L Hct 30.8 L MCV 84.4 MCH 29.1 MCHC 34.4 RDW 15.9 Plt Count 152 MPV 7.5 Neut % (Auto) 77.6 Lymph % (Auto) 14.5 [place] % (Auto) 6.0 Eos % (Auto) 1.6 Baso % (Auto) 0.2 Neut # (Auto) 6.9 Lymph # (Auto) 1.3 [place] # (Auto) 0.5 Eos # (Auto) 0.1 Baso # (Auto) 0.0 Sodium 141 Potassium 3.3 L Chloride 107 Carbon Dioxide 28 Anion Gap 9.3 BUN 20 H Creatinine 0.80 D Estimated Creat Clear 42 Estimated GFR 70 Est GFR ( Amer) 85 D Glucose 158 H POC Glucose 161 H 204 H Calcium 9.2 Magnesium 1.7 Total Bilirubin 0.5 AST 22 ALT 18 D Alkaline Phosphatase 86 Total Protein 5.6 L Albumin 2.9 L Globulin 2.7 Albumin/Globulin Ratio 1.1 06/17/24 06/17/24 06/16/24 16:07 06:00 21:30 WBC RBC Hgb Hct MCV MCH MCHC RDW Plt Count MPV Neut % (Auto) Lymph % (Auto) [place] % (Auto) Eos % (Auto) Baso % (Auto) Neut # (Auto) Lymph # (Auto) [place] # (Auto) Eos # (Auto) Baso # (Auto) Sodium Potassium Chloride Carbon Dioxide Anion Gap BUN Creatinine Estimated Creat Clear Estimated GFR Est GFR ( Amer) Glucose POC Glucose 202 H 165 H 182 H Calcium Magnesium Total Bilirubin AST ALT Alkaline Phosphatase Total Protein Albumin Globulin Albumin/Globulin Ratio Preliminary micro results at discharge 06/16/24 19:07 Blood Culture - Preliminary Blood 06/17/24 10:00 Sputum Culture - Preliminary Sputum - Expectorated Sputum 06/16/24 19:07 Blood Culture - Preliminary Blood NO GROWTH AFTER 24 HOURS DS: Diagnosis Discharge Diagnosis (1) Pneumonia: Status: Acute Code(s): J18.9 - Pneumonia, unspecified organism (2) Acute UTI: Status: Acute Code(s): N39.0 - Urinary tract infection, site not specified (3) Paroxysmal atrial fibrillation: Status: Acute Code(s): I48.0 - Paroxysmal atrial fibrillation (4) (HFpEF) heart failure with preserved ejection fraction: Status: Acute Code(s): I50.30 - Unspecified diastolic (congestive) heart failure (5) Diabetes mellitus with diabetic neuropathy: Status: Chronic Code(s): E11.40 - Type 2 diabetes mellitus with diabetic neuropathy, unspecified Qualifiers: 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 use: with skilled nursing use Diabetes mellitus type: type 2 Qualified Code(s): E11.40 - Type 2 diabetes mellitus with diabetic neuropathy, unspecified; 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 (6) Acute and chronic respiratory failure with hypoxia: Status: Acute Code(s): J96.21 - Acute and chronic respiratory failure with hypoxia (7) Hypertension: Status: Chronic Code(s): I10 - Essential (primary) hypertension Qualifiers: Hypertension type: essential hypertension Qualified Code(s): I10 - Essential (primary) hypertension (8) Hyperlipidemia: Status: Chronic Code(s): E78.5 - Hyperlipidemia, unspecified Qualifiers: Hyperlipidemia type: unspecified Qualified Code(s): E78.5 - Hyperlipidemia, unspecified Meds Home Medications and Allergies Home Medications ?Medication ?Instructions ?Recorded ?Confirmed ?Type ascorbic acid (vitamin C) 500 mg 500 mg PO DAILY 09/26/23 06/17/24 History tablet (Vitamin C) buspirone 5 mg tablet 5 mg PO BID 09/26/23 06/17/24 History clopidogrel 75 mg tablet 75 mg PO DAILY 09/26/23 06/17/24 History ferrous sulfate 325 mg (65 mg 325 mg PO DAILY 09/26/23 06/17/24 History iron) tablet (iron) multivitamin 1 tab PO DAILY 09/26/23 06/17/24 History polyethylene glycol 3350 17 gram 17 g PO DAILY 09/26/23 06/17/24 History oral powder packet (Miralax) acetaminophen 500 mg tablet 500 mg PO Q6HP PRN Pain (Scale 09/27/23 06/17/24 History Score 1-3) cholecalciferol (vitamin D3) 25 1,000 unit PO BID 09/27/23 06/17/24 History mcg (1,000 unit) capsule cranberry 500 mg capsule 500 mg PO BID 03/08/24 06/17/24 History insulin aspar prot-insulin aspart 10 unit SQ DAILYP PRN BLOOD 03/28/24 06/17/24 History 100 unit/mL (70-30) subcutaneous GLUCOSE OVER 250 pen (Novolog Mix 70-30FlexPen U-100) dulaglutide 0.75 mg/0.5 mL 0.75 mg SQ WEEKLY 03/29/24 06/16/24 History subcutaneous pen injector (Trulicity) meclizine 25 mg tablet 25 mg PO BIDP PRN Dizziness Or 03/29/24 06/17/24 History Vertigo gabapentin 400 mg capsule 400 mg PO BID #60 caps 04/02/24 06/17/24 Rx atorvastatin 40 mg tablet 40 mg PO HS #90 tabs 04/03/24 06/17/24 Rx bisoprolol fumarate 5 mg tablet 2.5 mg (1/2 x 5 mg) PO DAILY #90 05/06/24 06/17/24 Rx tabs albuterol sulfate 90 mcg/actuation 2 puff inhalation QIDP PRN 06/17/24 06/17/24 History aerosol inhaler Shortness Of Breath Or Wheezing apixaban 5 mg tablet (Eliquis) 5 mg PO BID 06/17/24 06/17/24 History blood sugar diagnostic ([facility] 06/17/24 06/17/24 History Ultra Test strips) brexpiprazole 0.25 mg tablet 0.25 mg PO HS 06/17/24 06/17/24 History (Rexulti) bumetanide 1 mg tablet 1 mg PO BID 06/17/24 06/17/24 History fluticasone furoate 200 1 inh inhalation DAILY 06/17/24 06/17/24 History mcg-vilanterol 25 mcg/dose inhalation powder (Breo Ellipta) hydrocodone 5 mg-acetaminophen 325 1 tab PO BIDP PRN Pain (Scale 06/17/24 06/17/24 History mg tablet Score 4-6) icosapent ethyl 1 gram capsule 2 g PO BID 06/17/24 06/17/24 History (Vascepa) ipratropium 0.5 mg-albuterol 3 mg 3 ml inhalation QIDP PRN Shortness 06/17/24 06/17/24 History (2.5 mg base)/3 mL nebulization Of Breath Or Wheezing soln lancets [facility] 06/17/24 06/17/24 History Plus Lancet) levothyroxine 50 mcg tablet 50 mcg PO AM 06/17/24 06/17/24 History metoclopramide HCl 5 mg tablet 5 mg PO BID 06/17/24 06/17/24 History omeprazole 20 mg capsule,delayed 20 mg PO DAILY 06/17/24 06/17/24 History release ondansetron 8 mg disintegrating 8 mg PO Q12HP PRN Nausea And 06/17/24 06/17/24 History tablet Vomiting zinc acetate 50 mg (zinc) capsule 50 mg PO DAILY 06/17/24 06/17/24 History levofloxacin 750 mg tablet 750 mg PO DAILY 3 days #3 tabs 06/18/24 Rx New Prescriptions to Start Prescriptions: levofloxacin Arturo Silver Allergies Allergy/AdvReac Type Severity Reaction Status Date / Time Iodinated Contrast Media Allergy Intermediate Hives Verified 05/23/24 13:29 (Iodinated Contrast Media - IV Dye) celecoxib (From CELEBREX) Allergy Unknown SWELLING Verified 05/23/24 13:29 ibuprofen (IBUPROFEN) Allergy Unknown S-BLISTERING Verified 05/23/24 13:29 WELTS meloxicam (MELOXICAM) Allergy Unknown S-BLISTERING Verified 05/23/24 13:29 WELTS Penicillins (PENICILLINS) Allergy Unknown I-HIVES Verified 05/23/24 13:29 rofecoxib (From VIOXX) Allergy Unknown I-HIVES Verified 05/23/24 13:29 Discharge Plan Disposition Patient Disposition: Home, Self-Care Condition: Fair Follow up Plan Follow up with: Hilary Bagley PA [Physician Drug Safety Specialist] - Enter time for follow up Prescriptions/Medication Reconciliation: New levofloxacin 750 mg tablet 750 mg PO DAILY 3 Days Qty: 3 0RF Continued gabapentin 400 mg capsule 400 mg PO BID Qty: 60 1RF atorvastatin 40 mg tablet 40 mg PO HS Qty: 90 1RF Patient Comments: TAKE 1 TABLET 1 TIME EACH DAY AT BEDTIME bisoprolol fumarate 5 mg tablet 2.5 mg PO DAILY Qty: 90 1RF cranberry 500 mg Capsule 500 mg PO BID Rx Instructions: administer with meals insulin asp prt-insulin aspart [Novolog Mix 70-30FlexPen U-100] 100 unit/mL (70-30) Insulin Pen 10 unit SQ DAILYP PRN (Reason: BLOOD GLUCOSE OVER 250) Rx Instructions: PATIENT'S DAUGHTER STATES PATIENT IS TO INJECT 10 UNITS SUBCUTANEOUSLY ONLY IF BLOOD GLUCOSE>250 meclizine 25 mg tablet 25 mg PO BIDP PRN (Reason: Dizziness Or Vertigo) Rx Instructions: TAKE 1 TABLET 2 TIMES EACH DAY NEEDED FOR DIZZINESS OR VERTIGO Trulicity 0.75 mg/0.5 mL pen injector 0.75 mg SQ WEEKLY Rx Instructions: INJECT THE CONTENTS OF 1 SYRINGE UNDER THE SKIN 1 TIME EACH WEEK bumetanide 1 mg tablet 1 mg PO BID Patient Comments: TAKE 1 TABLET AT 8 AM AND TAKE 1 TABLET AT 2 PM Rx Instructions: TAKE 1 TABLET BY MOUTH AT 8 AM AND TAKE 1 TABLET AT 2 PM fluticasone furoate-vilanterol [Breo Ellipta] 200-25 mcg/dose blister with device 1 inh INHALATION DAILY Patient Comments: INHALE 1 DOSE 1 TIME EACH DAY hydrocodone-acetaminophen 5-325 mg tablet 1 tab PO BIDP PRN (Reason: Pain (Scale Score 4-6)) Patient Comments: TAKE 1 TABLET 2 TIMES EACH DAY NEEDED Eliquis 5 mg tablet 5 mg PO BID Patient Comments: TAKE 1 TABLET 2 TIMES EACH DAY ipratropium-albuterol 0.5 mg-3 mg(2.5 mg base)/3 mL solution for nebulization 3 ml INHALATION QIDP PRN (Reason: Shortness Of Breath Or Wheezing) Patient Comments: INHALE CONTENTS OF 1 VIAL USING A NEBULIZER 4 TIMES EACH DAY NEEDED FOR SHORTNESS OF BREATH OR WHEEZING metoclopramide HCl 5 mg tablet 5 mg PO BID Patient Comments: TAKE 1 TABLET 2 TIMES EACH DAY FOR STOMACH icosapent ethyl [Vascepa] 1 gram capsule 2 g PO BID Patient Comments: TAKE 2 CAPSULES 2 TIMES EACH DAY Rexulti 0.25 mg tablet 0.25 mg PO HS Patient Comments: TAKE 1 TABLET 1 TIME EACH DAY AT BEDTIME FOR DEPRESSION omeprazole 20 mg capsule,delayed release(DR/EC) 20 mg PO DAILY Patient Comments: TAKE 1 CAPSULE 1 TIME EACH DAY FOR REFLUX (DME) OneTouch Ultra Test Strip MISCELLANEOUS Patient Comments: USE TO TEST BLOOD SUGAR 2 TIMES EACH DAY (DME) lancets [OneTouch Delica Plus Lancet] 33 gauge misc MISCELLANEOUS Patient Comments: USE TO TEST BLOOD SUGAR 2 TIMES EACH DAY levothyroxine 50 mcg tablet 50 mcg PO AM Patient Comments: TAKE 1 TABLET ONCE A DAY IN THE MORNING ON AN EMPTY STOMACH FOR THYROID zinc acetate 50 mg (zinc) Capsule 50 mg PO DAILY ondansetron 8 mg Tablet,Disintegrating 8 mg PO Q12HP PRN (Reason: Nausea And Vomiting) albuterol sulfate 90 mcg/actuation Hfa Aerosol Inhaler 2 puff INHALATION QIDP PRN (Reason: Shortness Of Breath Or Wheezing) buspirone 5 mg tablet 5 mg PO BID Patient Comments: TAKE 1 TABLET 1 TIME EACH DAY FOR ANXIETY clopidogrel 75 mg tablet 75 mg PO DAILY Patient Comments: TAKE 1 TABLET 1 TIME EACH DAY FOR HEART DISEASE multivitamin Tablet 1 tab PO DAILY polyethylene glycol 3350 [Miralax] 17 gram Powder In Packet 17 g PO DAILY ascorbic acid (vitamin C) [Vitamin C] 500 mg Tablet 500 mg PO DAILY ferrous sulfate [iron] 325 mg (65 mg iron) Tablet 325 mg PO DAILY acetaminophen 500 mg Tablet 500 mg PO Q6HP PRN (Reason: Pain (Scale Score 1-3)) cholecalciferol (vitamin D3) 25 mcg (1,000 unit) Capsule 1,000 unit PO BID Problem Reconciliation Problems Reviewed?: Yes Patient Discharge Instructions Patient Instructions: DI for Pneumonia -- Adult, DI for Urinary Tract Infection (UTI) Print Language: Indonesian Providers Primary Care Provider: Hilary Bagley Admit Provider: Ronnie Sethi Attending Provider: Ronnie Sethi
--- NOTE | 2024-06-18 12:50 | PC.NURSE ---
Son called and stated he could be here in about an hour to give his mother a ride home.
--- NOTE | 2024-06-19 10:11 | SW/DCPLANNER ---
Addendum entered by Hollie Levin 06/19/24 13:16: Spoke with Patient's daughter and asked them to come in for an outpatient lab for blood cultures within the next couple days. Patient's daughter said that they will try to get her in but patient is already crying saying she doesnt want to come in. Bharti Duran Original Note: Spoke with patients daugter and she stated that patient is doing well and eating her breakfast. Patient was able to get her medicine filled before she left the hospital. No concerns or questions at this time. Bharti Duran
[2024-06-24 10:08] LABS: POC Glucose,Bedside 246 (70-110)
== END 2024-06-18 14:17 | disposition home or self-care (01) ==
LOC: ER 19:32 → 2ND 20:17
PROVIDERS: Nurse Practitioner Acute Care; Physician Assistant; Admitting Provider Internal Medicine Adolescent Medicine; Emergency Provider Emergency Medicine; PCP Physician Assistant; Visit Provider Internal Medicine Adolescent Medicine
DX: J96.21 Acute and chronic respiratory failure with hypoxia (principal); J18.9 Pneumonia, unspecified organism; N39.0 Urinary tract infection, site not specified; I48.0 Paroxysmal atrial fibrillation; I50.30 Unspecified diastolic (congestive) heart failure; E11.40 Type 2 diabetes mellitus with diabetic neuropathy, unspecified; Z79.4 Long term (current) use of insulin; I11.0 Hypertensive heart disease with heart failure; E78.5 Hyperlipidemia, unspecified; Z79.899 Other long term (current) drug therapy; I25.10 Atherosclerotic heart disease of native coronary artery without angina pectoris; I27.20 Pulmonary hypertension, unspecified
CPT/HCPCS: 36415; 71045; 74176; 80048; 80053; 81001; 82962; 83690; 83735; 85025; 87040; 87070; 87077; 87086; 87186; 87205; 87633; 94640; 94760; 94761; 97163; 97166; 97530; 99285; G0378; J0456; J0696; J7050; J7613; J7620

== ENCOUNTER 2024-07-19 12:57 | Outpatient (CLI) | payer MEDICARE, MEDICAID, SELFPAY ==
--- NOTE | 2024-07-19 | CA_ITS ---
FINAL REPORT TECHNIQUE: Axial and color Doppler waveform evaluation of the left upper extremity was performed. Spectral analysis was performed. CLINICAL HISTORY: difference in right to left brachial blood pressures COMPARISON: None. FINDINGS: Left proximal subclavian artery peak systolic velocity: 82 cm/s Left mid subclavian artery peak systolic velocity: 116 cm/s Left brachial artery peak systolic velocity: 120 cm/s Left radial artery peak systolic velocity: 118 cm/s Left ulnar artery peak systolic velocity: 94 cm/s There is a short segment, focal stenosis in the left subclavian artery estimated at approximately 30%. This is not hemodynamically significant. There is no evidence of large vessel occlusion. Multiphasic waveforms are identified. IMPRESSION: Mild atherosclerotic disease. Short segment, focal left subclavian stenosis which is not hemodynamically significant. No evidence of vessel occlusion. Consider CT angiogram if further evaluation is needed. Authenticated and ERN
== END 2024-07-19 23:59 | disposition home or self-care (01) ==
LOC: RT 12:58
PROVIDERS: PCP Physician Assistant; Visit Provider Physician Assistant
DX: I77.1 Stricture of artery (principal)
CPT/HCPCS: 93931

== ENCOUNTER 2025-02-21 13:54 | Outpatient (CLI) | payer MEDICARE, MEDICAID, SELFPAY ==
--- OUTSIDE RECORDS SUMMARY | 2004-07-15 20:00 | XMS_ITS | Continuity of Care Document ---
Author Organization [facility] Address [address] [place] [address] Phone Care Team Providers Care Fingernail Sculpturer Name Role Phone Unavailable Unavailable Unavailable Advance Directives Directive Yes / No Effective Date File Name No Information Encounters Encounter Description Practice Location Reason(s) For Visit Diagnoses Date Provider Providers Copied on Encounter [facility], [address] [place], [id number] tel:[phone] [facility] No Information 4200 4 No Information Family History Family Member Type Diagnosis Age At Onset No Information Payers Payer name Insurance type Covered libertarian ID Authoriza tion(s) No Information Social History Type Description Quantity Date Captured Comments Sex Female Smoking Status No Information History Of Present Illness Encounter Date Complaint History Of Prese nt Illness No Information Functional Status Date Functional Assessmen t No Information Instructions Date Instruction Additional Infor mation No Information Assessments Type Assessment Date No Information Patient Care Teams Name Effective Dates (start - stop) Status Members No Information
--- OUTSIDE RECORDS SUMMARY | 2025-02-21 13:56 | XMS_ITS ---
Author Organization [facility] Care Team Providers Care Supervisor Pile Driving Name Role Phone Romaine Galvan Unavailable Unavailable Shruthi Bell Unavailable Unavailable Allergies and adverse reactions Code CodeSystem Substance Reaction Severity StartDate Concern Status 966524 RXNORM Rofecoxib Urticaria (code- 437643098, SNOMED CT) Mild 09/06/[address] Penicillins Urticaria (code- 490914453, SNOMED CT) Mild 09/06/2023 active 48547 RXNORM Meloxicam Wheal (code- 799304313, SNOMED CT); Blister (code- 870697545, SNOMED CT) Mild 09/06/2023 active Iodinated Contrast Media Urticaria (code- 236272345, SNOMED CT) Moderate 09/06/2023 active 5640 RXNORM Ibuprofen Blisters of multiple sites (code- 918189924, SNOMED CT); Wheal (code- 002717219, SNOMED CT) Mild 09/06/2023 active 583323 RXNORM Celecoxib Swelling (code- 57214172, SNOMED CT) Mild 09/06/2023 active Care Team Name Role Address Phone Organization Johanny Galvan [facility] [address] [place], [address], [place] (Office): [facility] 09/06/2023 - 09/24/2023 Shruthi Hadley Arabella [address] , [place], [address], [place] (Office): : [facility] 09/06/2023 - 09/24/2023 Goals Section Goals Description Status Target Date The resident will maintain l ab values within acceptable parameters per MD through review date. Active 12/18/2023 Advanced Directives will be honored through next review Active 12/18/2023 Optimal cognition will be ma intained with no avoidable decline through next review Active 12/18/2023 Prevent wounds and prevent a voidable skin breakdown through next review Active 12/18/2023 Resident will be comfortable as measured by verbalization through next review Active 12/18/2023 Resident will be free from i njury related to side rail use through next review Active 12/18/2023 Resident will have decreased risk for falls through nursing interventions through next review Active 12/18/2023 Resident will maintain adequ ate nutrition AEB having a stable weight. Active 12/18/2023 Resident will pass soft, for med stool at the preferred frequency of every 3rd day through the review date. Active 12/18/2023 The resident will be able to return to the community upon completion of therapy/meeting goals Active 12/18/2023 The resident will be complia nt with thyroid replacement therapy through next review Active 12/18/2023 The resident will be free fr om discomfort or adverse reactions related to anticoagulant use through the review date. Active 12/18/2023 The resident will be free fr om s/sx of dehydration as evidenced by good skin turgor, normal mucous membranes, vital signs within normal limits electrolytes within normal limits, adequate urinary output through the review date. Active 12/18/2023 The resident will be free of any discomfort or adverse side effects of diuretic therapy through the review date. Active 0 12/18/2023 The resident will have no co mplications related to SOB though the review date. Active 12/18/2023 The resident will have no co mplications related to diabetes through the review date. Active 12/18/2023 Will achieve/maintain maximu m functional mobility through next review Active 12/18/2023 Will attend/participate in a ctivities of choice through next review Active 12/18/2023 Will benefit from medication without adverse effects through next review Active 12/18/2023 Will express/exhibit satisfa ction with stay and care through next review Active 12/18/2023 Will have needs met by jose alfredo garcia of staff as needed through next review Active 12/18/2023 Will have no cardiac complications through next review Active 12/18/2023 Will not exhibit an avoidable decline in mood th rough next review Active 12/18/2023 Immunizations Immunization Status Vaccine Details Vaccine Code CodeSystem Date Notes TB 2 Step Mantoux Skin Test completed tuberculin skin test; unspecified formulation lotNumber: [id number] expiry: 09/21/2023 Mfg: par [employer] Given 0.1 syringe Right Forearm subcutaneously Step 2 of Multi-step with next step required 98 CVX created date: 09/14/2023 consent date: 09/14/2023 administere d date: 09/14/2023 TB 2 Step Mantoux Skin Test completed tuberculin skin test; unspecified formulation lotNumber: [id number] expiry: 09/20/2024 Mfg: par pharmaceutical Given 0.1 ml Right Forearm subcutaneously Step 1 of Multi-step with next step required 98 CVX created date: 09/07/2023 consent date: 09/07/2023 administere d date: 09/07/2023 Pneumococcal PCV13 completed pneumococcal conjugate vaccine, 13 valent 133 CVX created date: 09/07/2023 administere d date: 07/03/2014 Pneumococcal PPSV23 completed pneumococcal polysaccharide vaccine, 23 valent 33 CVX created date: 09/07/2023 administere d date: 08/09/2016 Pneumococcal PPSV23 completed pneumococcal polysaccharide vaccine, 23 valent 33 CVX created date: 09/07/2023 administere d date: 07/03/2014 Pneumococcal PPSV23 completed pneumococcal polysaccharide vaccine, 23 valent 33 CVX created date: 09/07/2023 administere d date: 03/15/2007 Pneumococcal PPSV23 completed pneumococcal polysaccharide vaccine, 23 valent 33 CVX created date: 09/07/2023 administere d date: 05/12/1998 COVID-19 Vaccine Dose 1 completed unknown vaccine or immune globulin 999 CVX created date: 09/07/2023 administere d date: 09/17/2020 COVID-19 Vaccine Dose 2 completed unknown vaccine or immune globulin 999 CVX created date: 09/07/2023 administere d date: 10/15/2020 Flu Vaccine Prior To Admission (historical only) completed unknown vaccine or immune globulin 999 CVX created date: 09/07/2023 administere d date: 07/06/2022 Flu Vaccine Prior To Admission (historical only) completed unknown vaccine or immune globulin 999 CVX created date: 09/07/2023 administere d date: 05/10/2021 Flu Vaccine Prior To Admission (historical only) completed unknown vaccine or immune globulin 999 CVX created date: 09/07/2023 administere d date: 04/09/2020 Flu Vaccine Prior To Admission (historical only) completed unknown vaccine or immune globulin 999 CVX created date: 09/07/2023 administere d date: 05/07/2018 Flu Vaccine Prior To Admission (historical only) completed unknown vaccine or immune globulin 999 CVX created date: 09/07/2023 administere d date: 04/26/2017 Flu Vaccine Prior To Admission (historical only) completed unknown vaccine or immune globulin 999 CVX created date: 09/07/2023 administere d date: 2008 Flu Vaccine Prior To Admission (historical only) completed unknown vaccine or immune globulin 999 CVX created date: 09/07/2023 administere d date: 05/04/2007 Mental Status Section Date Assessment Total Score Description 09/24/2023 BIMS 10 moderate cognit andrea impairment CAM 0 No delirium ind icated PHQ-9 00 09/08/2023 BIMS 07 severe cognitiv e impairment CAM 0 No delirium ind icated PHQ-9 16 moderately johanna re depression Problems Problem # Description Date of onset Resolved Date Code CodeSystem Concern Status 1 ACUTE ON CHRONIC SYSTOLIC (CONGESTIVE) HEART FAILURE 09/06/[address] active 2 ANXIETY DISORDER, UNSPECIFIED 09/06/[address] active 3 ATHEROSCLEROSIS OF CORONARY ARTERY BYPASS GRAFT(S), UNSPECIFIED, WITH UNSPECIFIED ANGINA PECTORIS 09/06/[address] active 4 ATHEROSCLEROTIC HEART DISEASE OF [place] CORONARY ARTERY WITHOUT ANGINA PECTORIS 09/06/[address] active 5 BACTEREMIA 09/06/19 24 09/19/[address] completed 6 BODY MASS INDEX [BMI]40.0-44.9, ADULT 09/06/[address] active 7 CHRONIC OBSTRUCTIVE PULMONARY DISEASE, UNSPECIFIED 09/06/[address] active 8 CHRONIC RESPIRATORY FAILURE WITH HYPOXIA 09/06/[address] active 9 CONSTIPATION, UNSPECIFIED 09/06/[address] active 10 DEPRESSION, UNSPECIFIED 09/06/[address] active 11 DIFFICULTY IN WALKING, NOT ELSEWHERE CLASSIFIED 09/06/[address] active 12 ENCOUNTER FOR ADJUSTMENT AND MANAGEMENT OF VASCULAR ACCESS DEVICE 09/06/[address] active 13 ENTEROCOCCUS THE CAUSE OF DISEASES CLASSIFIED ELSEWHERE 09/06/[address] active 14 ESSENTIAL (PRIMARY) HYPERTENSION 09/06/[address] active 15 GASTRO-ESOPHAGEAL REFLUX DISEASE WITHOUT ESOPHAGITIS 09/06/[address] active 16 HYPERLIPIDEMIA, UNSPECIFIED 09/06/[address] active 17 HYPOTHYROIDISM, UNSPECIFIED 09/06/[address] active 18 IRON DEFICIENCY ANEMIA, UNSPECIFIED 09/06/[address] active 19 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 EQUIPMENT (CURRENT) USE OF INSULIN 09/06/[address] active 20 MORBID (SEVERE) OBESITY DUE TO EXCESS CALORIES 09/06/[address] active 21 MUSCLE WEAKNESS (GENERALIZED) 09/06/[address] active 22 NONRHEUMATIC AORTIC (VALVE) STENOSIS 09/06/[address] active 23 NONRHEUMATIC MITRAL (VALVE) STENOSIS 09/06/[address] active 24 OBSTRUCTIVE SLEEP APNEA (ADULT) (PEDIATRIC) 09/06/[address] active 25 OTHER LOW BACK PAIN 09/06/[address] active 26 OTHER MALAISE 09/06/[address] active 27 PAROXYSMAL ATRIAL FIBRILLATION 09/06/[address] active 28 PERSONAL HISTORY OF NICOTINE DEPENDENCE 09/06/[address] active 29 RADICULOPATHY, LUMBAR REGION 09/06/[address] active 30 REPEATED FALLS 09/06/[address] active 31 RESPIRATORY DISORDERS IN DISEASES CLASSIFIED ELSEWHERE 09/06/[address] active 32 SCIATICA, UNSPECIFIED SIDE 09/06/[address] active 33 TYPE 2 DIABETES MELLITUS WITH DIABETIC NEUROPATHY, UNSPECIFIED 09/06/[address] active 34 TYPE 2 DIABETES MELLITUS WITH HYPERGLYCEMIA 09/06/[address] active 35 TYPE 2 DIABETES MELLITUS WITH STABLE PROLIFERATIVE DIABETIC RETINOPATHY, BILATERAL 09/06/[address] active Reason for Referral No Reasons for Referral Entered Social History Social History Observation Description Start Date End Date Code Code System Current Smoking Status Tobacco smoking consumption unknown 285052302 SNOMED CT Sex Assigned At Female 1950 64411-8 [facility] Gender Identity Female 04282076119832 [address] Vital Signs Code Code System Vitals Name Values and Units Timing Information 2339-0 [facility] Blood Sugar Njvhk=736.0 Units=mg/dL 09/24/2023 45204-6 [facility] Pain Level Value=0.0 09/24/2023 57052-1 [facility] Weight Drnnt=514.6 Units=Lbs 09/2023 14011-8 [facility] O2 % BldC Oximetry Value=99.0 Units= % 09/24/2023 9279-1 [facility] Respiratory Rate Value=18.0 Units=/m in 09/23/2023 8462-4 [facility] Blood Pressure-Diastolic Value=73 Un its=mmHg 09/23/2023 8480-6 [facility] Blood Pressure-Systolic Cnzqk=588 Un its=mmHg 09/23/2023 8310-5 [facility] Body Temperature Value=97.8 Units= F 09/23/2023 8867-4 [facility] Heart rate Value=66.0 Units=/min 08/2023 8302-2 [facility] Height Value=65.0 Units=Inches 09/06/2023
--- OUTSIDE RECORDS SUMMARY | 2025-02-21 13:58 | XMS_ITS | Clinical Summary ---
Author Organization [facility] ([place], [place], [place], [place]) Address [address] [place] [address] Care Team Providers Care Cosmetic Account Coordinator Name Role Phone Unavailable Primary Care Provider Unavailabl e Social History Tobacco Use Types Packs/Day Years Used Date Smoking Tobacco: Never Assessed Comments Unknown Sex and Gender Information Value Date Recorded Sex Assigned at Not on file Legal Sex Female 3:27 PM CDT Gender Identity Not on file Sexual Orientation Not on file Plan of Treatment Not on file
--- OUTSIDE RECORDS SUMMARY | 2025-02-21 13:58 | XMS_ITS | Clinical Summary ---
Author Organization [facility] Address [address] [place] [address] Care Team Providers Care Rug Renovator Name Role Phone Hilary Bagley Primary Care Provider [phone] Allergies Active Allergy Reactions Criticality Noted Date Comments Contrast Dye (Echo Or Unknow n Ct/Mr) Unknown - Low Severity 03/18/2022 Nsaids Rash Low 03/18/2022 Penicillins Anaphylaxis High 03/18/2022 Medications losartan (COZAAR) 50 MG tablet Take 100 mg by mouth Daily. Active [place] 3 1000 MG capsule Take by mouth 2 (Two) Times a Day. Active HYDROcodone-sharon taminophen (NORCO) 5-325 MG per tablet Take 1 tablet by mouth 3 (Three) Times a Day. Active cholecalciferol (VITAMIN D3) 25 MCG (1000 UT) tablet Take 1,000 Units by mouth 2 (Two) Times a Day. Active spironolactone (ALDACTONE) 25 MG tablet Take 25 mg by mouth Daily. Active meclizine (ANTIVERT) 25 MG tablet Take 25 mg by mouth 3 (Three) Times a Day As Needed for Dizziness. Active busPIRone (BUSPAR) 5 MG tablet Take 5 mg by mouth 3 (Three) Times a Day. Active furosemide (LASIX) 40 MG tablet Take 40 mg by mouth 2 (Two) Times a Day. Active baclofen (LIORESAL) 10 MG tablet Take 10 mg by mouth 2 (Two) Times a Day. Active metoclopramide (REGLAN) 5 MG tablet Take 5 mg by mouth 2 (Two) Times a Day. Active rosuvastatin (Crestor) 20 MG tablet Take 20 mg by mouth Daily. Active omeprazole (priLOSEC) 20 MG capsule Take 20 mg by mouth Daily. Active bisoprolol (ZEBeta) 10 MG tablet Take 10 mg by mouth Every Night. Active Ergocalciferol (VITAMIN D2 PO) Take 1.25 mg by mouth 1 (One) Time Per Week. 50,000 IU weekly Active citalopram (CeleXA) 40 MG tablet Take 40 mg by mouth Daily. Active clopidogrel (PLAVIX) 75 MG tablet Take 75 mg by mouth Daily. Active aspirin 81 MG chewable tablet Chew 81 mg Daily. Active levothyroxine (SYNTHROID, LEVOTHROID) 50 MCG tablet Take 50 mcg by mouth Daily. Active insulin detemir (LEVEMIR) 100 UNIT/ML injection Inject 96 Units under the skin into the appropriate area as directed 2 (Two) Times a Day. Active insulin aspart prot-insulin aspart (novoLOG 70/30) (70-30) 100 UNIT/ML injection Inject 100 Units under the skin into the appropriate area as directed 3 (Three) Times a Day With Meals. Active albuterol sulfate HFA 108 (90 Base) MCG/ACT inhaler Inhale 2 puffs Every 6 (Six) Hours. Active Fluticasone-Ume clidin-Vilant (Trelegy Ellipta) 200-62.5-25 MCG/INH inhaler Inhale 1 puff Daily. Active albuterol (PROVENTIL) (5 MG/ML) 0.5% nebulizer solution Take 2.5 mg by nebulization 2 (Two) Times a Day. Active Zinc 50 MG tablet Take by mouth Daily. Active ascorbic acid (VITAMIN C) 500 MG tablet Take 500 mg by mouth Daily. Active guaiFENesin (MUCINEX) 600 MG 12 hr tablet Take 1,200 mg by mouth 2 (Two) Times a Day. Active gabapentin (NEURONTIN) 800 MG tablet Take 800 mg by mouth 4 (Four) Times a Day. Active Dulaglutide (Trulicity) 0.75 MG/0.5ML solution pen-injector Inject under the skin into the appropriate area as directed 1 (One) Time Per Week. Active rivaroxaban (XARELTO) 20 MG tabletIndicatio ns:restart on 9-1-22 Take 20 mg by mouth Daily. Active Active Problems Problem Noted Date Diagnosed Date Epistaxis 03/18/2022 Essential hypertension 03/18/2022 Type 2 diabetes mellitus wit hout complication, with long-term current use of insulin 03/18/2022 DDD (degenerative disc disease), lumbosacral Arthritis 03/18/2022 GERD without esophagitis 03/18/2022 Moderately severe depression 03/18/2022 Hypothyroidism (acquired) 03/18/2022 COPD (chronic obstructive pulmonary disease) Obesity, Class III, BMI 40-49.9 (morbid obesity) 03/18/2022 Immunizations Immunization Administration Dates Next Due COVID-19 (MODERNA) 1st,2nd,3rd Dose Monovalent 0 10/15/2020,09/17/2020 Family History Medical History Relation Name Comments Diabetes Brother Heart failure Brother No Known Problems Father Cancer Mother Heart disease Sister Relation Name Status Comments Brother Alive Daughter Father Mother Sister Social History Tobacco Use Types Packs/Day Years Used Date Smoking Tobacco: Former Cigarettes Q uit: 1996 Smokeless Tobacco: Never Alcohol Use Standard Drinks/Week Comments Not Currently 0 (1 standard drink = 0.6 oz pur e alcohol) AUDIT-C Answer Date Recorded Q1: How often do you have a drink containing alcohol? Never 03/18/2022 Q2: How many drinks containi ng alcohol do you have on a typical day when you are drinking? Patient does not drink Q3: How often do you have si x or more drinks on one occasion? Never 03/18/2022 Abuse Screen Answer Date Recorded Unsafe at Home or Work/School Not on file Feels Threatened by Someone? Not on file 03/2023 Does Anyone Keep You from Co ntacting Others or Doint Things Outside the Home? Not on file 05/01/2023 Physical Sign of Abuse Present Not on file 1 Housing Stability Answer Date Recorded Current Living Arrangements Not on file 03/2023 Potentially Unsafe Housing Conditions Not on edmundo e 05/01/2023 Family and Community Support Answer Yobani e Recorded Help with Day-to-Day Activities Not on file 05/01/2023 Lonely or Isolated Not on file 05/01/2023 Employment Answer Date Recorded Do you want help finding or keeping work or a demetria b? Not on file 05/01/2023 Disabilities Answer Date Recorded Concentrating, Remembering, or Making Decisions Difficulty Not on file 05/01/2023 Doing Errands Independently Difficulty Not on fi le 05/01/2023 Education Answer Date Recorded Help with school or training? Not on file Preferred Language Not on file 05/01/2023 Comments Unknown Sex and Gender Information Value Date Recorded Sex Assigned at Not on file Legal Sex Female 10:41 AM EDT Gender Identity Not on file Sexual Orientation Not on file Last Filed Vital Signs Vital Sign Reading Time Taken Comments Blood Pressure 134/60 03/21/2022 11:25 AM EDT Pulse 57 03/21/2022 11:25 AM EDT Temperature 36.4 C (97.6 F) 03/21/2022 11:25 AM EDT Respiratory Rate 18 03/21/2022 11:25 AM EDT Oxygen Saturation 100% 03/21/2022 7:14 AM EDT Inhaled Oxygen Concentration - - Weight 123 kg (271 lb 9.6 oz) 03/18/2022 5:40 PM EDT Height 165.1 cm (5' 5 ) 03/18/2022 5:40 PM EDT Body Mass Index 45.2 03/18/2022 5:40 PM EDT Plan of Treatment Health Maintenance Due Date Last Done Comments ANNUAL PHYSICAL 1950 DXA SCAN 1950 HEPATITIS C SCREENING 1950 COLOGUARD 1994 COLON CANCER SCREENING 5 [facility] SIGMOIDOSCOPY 1994 COLONOSCOPY 1994 [address]AL CANCER SCREENING 1994 CT COLONOGRAPHY 1994 FECAL OCCULT BLOOD TEST 1994 FIT Testing (1 year) 1994 ZOSTER VACCINE (1 of 2) 1999 TDAP/TD VACCINES (2 - Tdap) 04/30/2006 04/30/1996 COVID-19 Vaccine (3 - 2023-2 5 season) 2024 10/15/2020, 09/17/2020 RSV Vaccine - Adults (1 - 1- dose 75+ series) 2024 INFLUENZA VACCINE 04/23/2025 05/10/2021, , 04/26/2017 Pneumococcal Vaccine 50+ Completed 017, 07/03/2014, 07/03/2014, Additional history exists HEMOGLOBIN A1C Discontinued 03/18/2022 Procedures Procedure Name Priority Date/Time Associated Diagnosis Comments HEMOGLOBIN A1C STAT 03/18/2022 6:46 PM EDT from Last 3 Months or Most Recently Relevant to Health Maintenance Results * Hemoglobin A1c (03/18/2022 6:46 PM EDT) Hemoglobin A1C 5.30 4.80 - 5.60 % 03/18/2022 8:12 PM EDT [facility] Blood Venipuncture / Unknown 03/18/2022 6:46 PM EDT 03/18/2022 7:12 PM EDT Narrative [facility] - 03/18/2022 8:12 PM EDT Hemoglobin A1C Ranges: Increased Risk for Diabetes 5.7% to 6.4% Diabetes >= 6.5% Diabetic Goal < 7.0% us Anastasia Perez APRN LAB BLOOD ORDERABLES Final Res ult [facility]
[address] [place] [address], from Last 3 Months or Most Recently Relevant to Health Maintenance Insurance MEDICARE A & B [place] MEDICA[place] Advance Directives * CPR (Attempt to Resuscitate) (Latest Code Status on File) Date Activated Date Inactivated Comments 03/18/2022 6:04 PM 03/21/2022 5:52 PM Question Answer Comments Code Status (Patient has no pulse and is not breathing): CPR (Attempt to Resuscitate) Medical Interventions (Patie nt has pulse or is breathing): Full Support Level Of Support Discussed With: Patient Care Teams Rug Renovator Relationship Specialty Start Date End Date Hilary Bagley PA PCP - General Physician Hot Dog Vendor 03/18/22
--- OUTSIDE RECORDS SUMMARY | 2025-02-21 13:58 | XMS_ITS | Referral Summary ---
Author Organization [facility] ([place], [place], [place], [place]) Address [address] [place] [address] Care Team Providers Care Ballroom Dance Instructor Name Role Phone Unavailable Primary Care Provider [...]
--- OUTSIDE RECORDS SUMMARY | 2025-02-21 13:58 | XMS_ITS | Clinical Summary ---
Author Organization [facility] Address [address] [place] [id number] Care Team Providers Care Appeals Officer Name Role Phone Hilary Bagley Primary Care Provider [phone] Immunizations Immunization Administration Dates Next Due Pneumococcal Polysaccharide PPV23 07/24/2008 Family History Medical History Relation Name Comments Anxiety disorder Father Bone cancer Mother Breast cancer Mother Relation Name Status Comments Father Mother Social History Tobacco Use Types Packs/Day Years Used Date Smoking Tobacco: Former Alcohol Use Standard Drinks/Week Comments Yes 0 (1 standard drink = 0.6 oz pur e alcohol) Comments Unknown Sex and Gender Information Value Date Recorded Sex Assigned at Not on file Legal Sex Female 8:34 PM EDT Gender Identity Not on file Sexual Orientation Not on file Last Filed Vital Signs Vital Sign Reading Time Taken Comments Blood Pressure 160/66 04/23/2019 2:09 PM EDT Pulse 74 04/23/2019 2:09 PM EDT Temperature 36.3 C (97.3 F) 10/02/2018 1:36 PM EDT Respiratory Rate 20 04/23/2019 2:09 PM EDT Oxygen Saturation - - Inhaled Oxygen Concentration - - Weight 114 kg (251 lb 4.1 oz) 04/23/2019 2:09 PM EDT Height 165.1 cm (5' 5 ) 04/23/2019 2:09 PM EDT Body Mass Index 41.81 04/23/2019 2:09 PM EDT Plan of Treatment Health Maintenance Due Date Last Done Comments [facility]-Bone Density Scan 1950 [facility]-Depression Screening 1950 [facility]-Infant/Child/Adol SDOH Screenings 1950 [facility]- SDOH Screenings 1967 [facility]-Adult SDOH Screenings 1967 CT Colonography 1994 Colonoscopy 1994 FIT-DNA 1994 FIT 1994 FOBT 1994 Sigmoidoscopy 1994 [facility]-Colorectal Cancer Screening 1994 [facility]-DTaP,Tdap,and Td Vaccines (1 - Tdap) 05/01/1996 04/30/1996 [facility]-Zoster Vaccines (1 of 2) 1999 [id number] Vaccine (3 - season) 2024 10/15/2020, 09/17/2020 [facility]-RSV Vaccine: 60+ Years or (1 - 1-dose 75+ series) 2024 [facility]-Influenza Vaccine (#1) 03/24/202507/06, 05/07/2018, 2008, Additional history exists [facility]-Pneumococcal Vaccine: 50+ Years Completed 08/09/2016, 07/03/2014, 07/03/2014, Additional history exists HPV Vaccines Aged Out No longer eligi ble based on patient's age to complete this topic [facility]-HIB Vaccines Aged Out No longer e ligible based on patient's age to complete this topic [facility]-Hepatitis A Vaccines Aged Out No longer eligible based on patient's age to complete this topic [facility]-IPV Vaccines Aged Out No longer e ligible based on patient's age to complete this topic [facility]-Rotavirus Vaccines Aged Out No lo nger eligible based on patient's age to complete this topic Insurance MEDICARE Care Teams Appeals Officer Relationship Specialty Start Date End Date Hilary Bagley PA [address] [place] [address] PCP - General 12/04/20
--- NOTE | 2025-02-21 14:15 | CA_ITS ---
APPROVED REPORT EXAM: Comprehensive 2D, Doppler, and color-flow Echocardiogram [employer] Rental Clerk: Yasmeen Bradley, BEATA, RVS Ht: 5 ft 5 in Wt: 230lbs BSA: 2.10 BP: 115/69 mmHg Indications: COPD, Afib, CHF, ARF, PHTN, ERICKSON 2D Dimensions Aortic Root 2.70 cm LA Volume 103.70 mL Left Atrium 4.22 cm LA Volume Index 49.079301 mL/m2 (M/F) 16-34 RVID Base (AP4) 5.11 cm (M/F) 2.5-4.1 LVOT 1.92 cm (M/F) 1.5-2.5 M-Mode Dimensions RVDd 3.25 cm (0.9-2.6) LVDd 4.95 cm (3.5-5.7) Ao Diam 3.30 cm (2.0-3.7) LVDs 3.15 cm (3.5-5.7) IVSd 1.34 cm (0.6-1.1) PWd 1.55 cm (0.6-1.1) EF (Teich) 65.90% EPSs 0.36 cm FS 36.40% EDV (Teich) 115.50 mL TAPSE 1.13 (<1.7) ESV (Teich) 39.40 mL LV Diastology E Decel Time 239 (160-240 msec) E/A Ratio 0.94 MED E' 5.7 (>= 7 cm/sec) MED A' 11.60 cm/s E'/MED E' Ratio 23.40 (<= 14) LAT E' 5.4 (>= 10 cm/sec) LAT A' 12.40 cm/s E/LAT E' Ratio 24.70 (<= 14) Aortic Valve LVOT Max 111.0 (70-110 cm/s) JOSH Index 0.56 cm2/m2 LVOT VTI 27.06 cm AoV Peak Navdeep. 293.0 (50-130 cm/s) AO Peak GR. 33.90 mmHg AO Mean GR. 17.30 (<5 mmHg) AO VTI 66.9 (18-25 cm) JOSH (VTI) 1.17 (2.5-4.5 cm2) Mitral Valve MV E Max Navdeep. 133.0 (40-130 cm/s) MV A Velocity 142.0 (40-130 cm/s) E/A Ratio 0.94 MV Decel. Time 239 (160-240 ms) MV Mean Gr. 4.60 (<2mmHg) Pulmonary Valve IL End VMAX 209.0 cm/s Tricuspid Valve TR P. Velocity 341.00 cm/s RAP Estimate 10.00 mmHg RVSP 56.50 mmHg Left Ventricle The left ventricle is normal size. Left ventricular systolic function is normal. The left ventricular ejection fraction is within the normal range. There is increased left ventricular wall thickness. There is normal LV segmental wall motion. Grade 2 diastolic dysfunction is present. LVEF is 55% Right Ventricle The right ventricle is moderately dilated. The right ventricular systolic function is mildly reduced. Atria Left atrium is severely dilated. Right atrium is severely dilated. There is no color Doppler evidence of interatrial shunt. Aortic Valve The aortic valve is moderately thickened. Moderate aortic stenosis is present. JOSH by continuity equation is 1.3 cm2. Peak velocity 3.0 m/s. Mean AV gradient is 17 mmHg. Max AV gradient is 35 mmHg. DI=0.40. Trace aortic regurgitation is present. Mitral Valve The mitral valve is mildly thickened. No evidence of mitral valve stenosis. Trace mitral regurgitation is present. Tricuspid Valve The tricuspid valve leaflets are thin and pliable. Mild tricuspid regurgitation. RVSP 45-50 mmHg. Pulmonic Valve The pulmonary valve is grossly normal in structure. Mild pulmonic valve regurgitation is present. Great Vessels The aortic root is normal in size. IVC is normal in size and collapses >50% with inspiration. Pericardium There is no pericardial effusion. Other Information Study Quality: Fair Conclusion Normal LV systolic function (LVEF 55%). Grade 2 diastolic dysfunction. Moderate RV dilation with mild reduction in RV function. Biatrial dilation. Moderate (JOSH by continuity equation is 1.3 cm2. Peak velocity 3.0 m/s. Mean AV gradient is 17 mmHg. Max AV gradient is 35 mmHg. DI=0.40). Mild TR, mild IL. Elevated RVSP 45-50 mmHg. Electronically signed by : Elza Montejo MD 02/22/2025 12:07:30
[2025-02-21 15:30] VITALS: PULSE 55; PULSE 58
[2025-02-21] MEDS: ALBUTEROL 0.083% 2.5 MG/3 ML NEB IH (15:30)
== END 2025-02-21 23:59 | disposition home or self-care (01) ==
LOC: RT 13:55
PROVIDERS: PCP Physician Assistant; Visit Provider Internal Medicine Pulmonary Disease
DX: I08.8 Other rheumatic multiple valve diseases (principal); I11.0 Hypertensive heart disease with heart failure; I50.9 Heart failure, unspecified; I27.20 Pulmonary hypertension, unspecified; I77.1 Stricture of artery; I48.91 Unspecified atrial fibrillation; J44.9 Chronic obstructive pulmonary disease, unspecified; G47.33 Obstructive sleep apnea (adult) (pediatric)
CPT/HCPCS: 93306; 94060; 94640; 94726; 94729